=== PATIENT | female | born 1950 | race African-American/Black ===

== ENCOUNTER 2023-01-25 08:42 | Outpatient (OUT) | payer MEDICARE, MEDICAID, SELFPAY ==
--- NOTE | 2023-01-25 09:30 | FL_ITS ---
[address] [address] Patient Name: JEANMARIE ONEILL MRN: [id number] date: 1950 Sex: F Assigned Patient Location: [place] Current Patient Location: [place] Accession/Order Number: [id number] Exam Date: 01/25/2023 09:05 Report Date: 01/25/2023 10:02 At the request of: NON-STAFF PHYSICIAN Procedure: FL modified barium swallow EXAMINATION: FL modified barium swallow HISTORY: Dysphagia COMPARISON: No relevant comparison available. TECHNIQUE: A swallowing evaluation was performed with fluoroscopy in the usual manner. Standard level fluoroscopic mode of operation utilized. The procedure was recorded. Speech pathology was present FINDINGS: ORAL PHASE: Normal deglutition. PHARYNGEAL PHASE: Normal swallowing. ASPIRATION: None. STRUCTURE: Normal. No visible obstruction, stricture, or dilatation. OTHER: Negative. FL/FL modified barium swallow IMPRESSION: Normal examination. Electronically authenticated by: FRANKO OSWALD Date: 01/25/2023 10:02
== END 2023-01-25 08:43 | disposition home or self-care (01) ==
LOC: FL 08:48
DX: R13.10 Dysphagia, unspecified (principal)
CPT/HCPCS: 74230; 92611

== ENCOUNTER 2023-02-09 00:24 | Outpatient (REF) | payer MEDICARE, MEDICAID, SELFPAY ==
[2023-02-09 09:40] LABS: Basophils Percent Auto 0.4 % (0.2-2.0); Eosinophils Absolute Auto 0.6 10^3/uL (0.0-0.7); Eosinophils Percent Auto 7.4 % (0.9-7.0); Hematocrit 37.1 % (36.0-48.0); Hemoglobin 11.6 g/dL (12.0-16.0); Immature Granulocytes Abs Auto 0.01 10^3/uL (0.00-0.03); Immature Granulocytes Pct Auto 0.1 % (0.0-0.5); Lymphocytes Absolute Auto 2.8 10^3/uL (1.2-3.8); Lymphocytes Percent Auto 32.5 % (20.5-60.0); Mean Corpuscular HGB Conc 31.3 g/dL (29.9-35.2); Mean Corpuscular Hemoglobin 29.1 pg (26.7-34.0); Mean Platelet Volume 9.9 fL (9.5-13.5); Monocytes Absolute Auto 0.5 10^3/uL (0.3-0.8); Monocytes Percent Auto 5.5 % (1.7-12.0); Neutrophils Absolute Auto 4.6 10^3/uL (1.4-6.5); Neutrophils Percent Auto 54.1 % (43.0-75.0); Platelet Count 227 10^3/uL (150-450); Red Blood Count 3.99 10^6/uL (4.20-5.40); Red Cell Distribution Width 14.6 % (11.0-15.0); White Blood Count 8.5 10^3/uL (4.0-11.0)
[2023-02-09 10:16] LABS: Alanine Aminotransferase 16 U/L (14-59); Albumin Globulin Ratio 0.8; Albumin Level 3.6 g/dL (3.4-5.0); Alkaline Phosphatase 101 U/L (46-116); Anion Gap 12.5; Aspartate Amino Transferase 16 U/L (15-37); BUN Creatinine Ratio 33.7; Bilirubin Total 0.4 mg/dL (0.2-1.0); Calcium 9.2 mg/dL (8.5-10.1); Chloride 105 mmol/L (98-107); Chol HDL Ratio 2.8; Cholesterol 144 mg/dL (<=200); Estimated GFR (African America >60 (>=60); Estimated GFR (Non-African Ame 58 (>=60); Globulin 4.6 g/dL; Glucose 81 mg/dL (74-106); HDL Cholesterol 51 mg/dL (40-60); LDL Cholesterol Calculated 79.4 mg/dL; Potassium 4.5 mmol/L (3.5-5.1); Sodium 141 mmol/L (136-145); Thyroid Stimulating Hormone 1.349 uIU/mL (0.358-3.740); Total Protein 8.2 g/dL (6.4-8.2); Triglycerides 68 mg/dL (<=150); VLDL CHOLESTEROL 13.6 mg/dL
[2023-02-09 11:17] LABS: Estimated Average Glucose 131 mg/dL; Glycohemoglobin A1C 6.2 % (4.5-6.2)
== END 2023-02-09 00:25 | disposition home or self-care (01) ==
LOC: LAB 00:24
PROVIDERS: Visit Provider Nurse Practitioner Family
DX: E03.9 Hypothyroidism, unspecified (principal); E11.9 Type 2 diabetes mellitus without complications; I10 Essential (primary) hypertension
CPT/HCPCS: 36415; 80053; 80061; 83036; 84436; 84443; 85025

== ENCOUNTER 2023-06-06 02:14 | Outpatient (REF) | payer MEDICARE, MEDICAID, SELFPAY ==
--- OUTSIDE RECORDS SUMMARY | 2023-06-06 02:18 | XMS_ITS | CCD ---
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 Role Phone Cayla Gamez Unavailable [facility] Primary Care Unavaila Martin Gu Attending Unavailable Elizabet Wilson Admitting Unavailable [facility] Care Unavaila Isael Villatoro Attending Unavailable Isael Castro Admitting Unavailable Austin Head Unavailable [facility] Primary Care Unavaila Evert Hamlin Attending Unavailable Evert Grant Admitting Unavailable [facility] Primary Care Unavaila Fuad Jennings Attending Unavailable Fuad Pillai Admitting Unavailable Gerald Fuentes Primary Care Unavailable Amando Soto Attending Unavailable Amando Soto Admitting Unavailable Medications Current Medications Medication Drug Class(es) Dates Sig (Normalized) Sig (Original) acetaminophen 500 mg oral capsule (4 sources) take 1 capsule by mouth every six hours Acetaminophen 500 MG 1 capsule as needed Orally every 6 hrs Active [id number] 200 actuat albuterol 0.09 mg/actuat metered dose inhaler (4 sources) beta2-Adrenergic Agonist take 2 puff(s) by inhalation every four hours as needed Ventolin HFA 108 (90 Base) MCG/ACT 2 puffs as needed Inhalation every 4 hrs Active aspirin 81 mg oral tablet (4 sources) Platelet Aggregation Inhibitor, Nonsteroidal Anti-inflammatory Drug take 1 tablet by mouth once daily Aspirin 81 MG 1 tablet Orally Once a day Active take 1 tablet by mouth every twe nty-four hours benztropine mesylate 0.5 mg oral tablet (4 sources) Anticholinergic, Antihistamine take 1 tablet by mouth every twenty-four hours Benztropine Mesylate 0.5 MG 1 tablet at bedtime Orally Once a day Active Calcium (4 sources) Phosphate Binder, Calcium Calcium Active carvedilol 3.125 mg oral tablet (4 sources) alpha-Adrenergic Tacos, beta-Adrenergic Tacos take 1 tablet by mouth every twelve hours Carvedilol 3.125 MG 1 tablet with food Orally Twice a day for 30 day(s) Active furosemide 20 mg oral tablet (4 sources) Loop Diuretic take 1 tablet by mouth every twenty-four hours Furosemide 20 MG 1 tablet Orally Once a day for 30 day(s) Active Haloperidol (4 sources) Typical Antipsychotic Haldol 5 MG 5 mg Injection three times a day for 30 day(s) Active 3 ml insulin glargine 100 unt/ml pen injector (4 sources) Insulin Analog inject 10 [IU] by subcutaneous injection once daily at bedtime Lantus SoloStar 100 UNIT/ML 10 units Subcutaneous qhs Active levothyroxine sodium 0.125 mg oral tablet (4 sources) l-Thyroxine Synthroid 125 MC G 1 tablet every morning on an empty stomach Orally Once a day for 30 day(s) Active loperamide hydrochloride 2 mg oral tablet (4 sources) Opioid Agonist Loperamide A-D 2 MG 1 tablet up to 8 tablets per 24 hours Orally 8 time(s) a day Active metFORMIN hydrochloride 500 mg oral tablet (4 sources) Biguanide take 1 tablet by mouth twice daily Metformin 500 mg 1 tab Oral BID w/ Food Active omeprazole 20 mg delayed release oral capsule (4 sources) Proton Pump Inhibitor take 1 capsule by mouth every twenty-four hours Omeprazole 20 MG 1 capsule Orally Once a day for 30 day(s) Active spironolactone 25 mg oral tablet (4 sources) Aldosterone Antagonist take 0.5 tablet by mouth once daily Spironolactone 25 MG 1/2 tablet Orally Once a day for 30 day(s) Active tiotropium 0.018 mg inhalation powder (4 sources) Anticholinergic take 1 capsule by inhalation once daily Spiriva HandiHaler 18 MCG 1 capsule Inhalation Once a day Active venlafaxine 100 mg oral tablet (4 sources) Serotonin and Norepinephrine Reuptake Inhibitor take 1 tablet by mouth every twenty-four hours Venlafaxine HCl 100 MG 1 tablet with food Orally Once a day for 30 day(s) Active Vitamin B-12 1000 MCG (1 source) take 1 tablet under the tongue once daily Vitamin B-12 1000 MCG 1 tablet under the tongue and allow to dissolve Sublingual Once a day for 30 day(s) Active vitamin b12 1 mg sublingual tablet (3 sources) Vitamin B12 take 1 tablet by mouth every twenty-four hours Vitamin D 1000 UNIT (4 sources) take 1 capsule by mouth once martine ly Vitamin D 1000 UNIT 1 capsule Orally Once a day for 30 day(s) Active Problems Active Problems Problem Classification Problem Date Documented Date Episodic/Chronic Chronic obstructive pulmonary disease and bronchiectasis (4 sources) Chronic obstructive lung disease; Translations: [Chronic obstructive pulmonary disease, unspecified] Chronic Diabetes mellitus with complications (1 source) Type 2 diabetes mellitus with hyperglycemia; Translations: [E11.65 - Type 2 diabetes mellitus with hyperglycemia] Onset: 09-01-2021 Chronic Diabetes mellitus without complication (1 source) Diabetes mellitus without complication; Translations: [E11.65 - Type 2 diabetes mellitus with hyperglycemia] Onset: 10-25-2021 Essential hypertension (1 source) Essential (primary) hypertension; Translations: [Essential (primary) hypertension] Onset: 02-14-2022 Chronic Nutritional deficiencies (2 sources) Vitamin D deficiency, unspecified; Translations: [Vitamin D deficiency, unspecified] Onset: 09-01-2021 Chronic Nutritional deficiencies (2 sources) Deficiency of other specified B group vitamins; Translations: [Deficiency of other specified B group vitamins] Onset: 09-01-2021 Episodic Other nervous system disorders (1 source) Encephalopathy, unspecified; Translations: [G93.40 - Encephalopathy, unspecified] Onset: 09-01-2021 Chronic Schizophrenia and other psychotic disorders (1 source) Paranoid schizophrenia; Translations: [F20.0 - Paranoid schizophrenia] Onset: 09-01-2021 Chronic Substance-related disorders (4 sources) Tobacco user; Translations: [Nicotine dependence, cigarettes, uncomplicated] Chronic Thyroid disorders (1 source) Hypothyroidism, unspecified; Translations: [Hypothyroidism, unspecified] Onset: 02-14-2022 Chronic Unclassified (1 source) R41.82 - Altered mental status, unspecified; Translations: [R41.82 - Altered mental status, unspecified] Onset: 09-01-2021 Unclassified (1 source) T14.8XXA - Other injury of unspecified body region, initial encounter; Translations: [T14.8XXA - Other injury of unspecified body region, initial encounter] Onset: 08-24-2021 Unclassified (1 source) K80.10 - Calculus of gallbladder with chronic cholecystitis without obstruction; Translations: [K80.10 - Calculus of gallbladder with chronic cholecystitis without obstruction] Onset: 08-23-2021 Past or Other Problems Problem Classification Problem Date Documented Date Episodic/Chronic Acute and unspecified renal failure (1 source) Acute kidney failure, unspecified; Translations: [N17.9 - Acute kidney failure, unspecified] Onset: 09-01-2021 Episodic Bacterial infection; unspecified site (1 source) Bacterial infection, unspecified; Translations: [A49.9 - Bacterial infection, unspecified] Onset: 09-01-2021 Episodic Fluid and electrolyte disorders (1 source) Hypokalemia; Translations: [E87.6 - Hypokalemia] Onset: 09-01-2021 Episodic Other nervous system disorders (1 source) Other acute postprocedural pain; Translations: [G89.18 - Other acute postprocedural pain] Onset: 08-23-2021 Episodic Residual codes; unclassified (1 source) Acquired absence of other specified parts of digestive tract; Translations: [Z90.49 - Acquired absence of other specified parts of digestive tract] Onset: 09-01-2021 Episodic Thyroid disorders (1 source) Disorder of thyroid, unspecified; Translations: [E07.9 - Disorder of thyroid, unspecified] Onset: 08-23-2021 Episodic Urinary tract infections (1 source) Urinary tract infection, site not specified; Translations: [N39.0 - Urinary tract infection, site not specified] Onset: 09-01-2021 Episodic Results Test Name Value Interpretation Reference Range Facility 1,25 Dihydroxy Vit D Calcitr olon 02-14-2022 1,25 Dihydroxy Vit D Calcitrol 19.4 pg/mL Low 24.8-81.5 [facility] Comment on above: Order Comment: Mamta hall for Exam Vitamin D deficiency Result Comment: Perf ormed at: [facility] - [facility] [address] [id number] Welt Beater: Favian Colby MD, Phone: [phone] PERFORMED BY: [place] [address] [place] [address] PATHOLOGIST ANIMAL SCIENTIST HEMANT CHÁVEZ M.D. Performed By: #### G LULS #### Point of Care testing , Complete Blood Count Auto Di ffon 02-14-2022 Basophils (Bld) [#/Vol] 0.0 10*3/uL Normal 0.0-0.2 [facility] Comment on above: Order Comment: Reaso n for Exam Essential hypertension Result Comment: PERF ORMED BY: [facility] [place] [place] [address] PATHOLOGIST ANIMAL SCIENTIST HEMANT CHÁVEZ M.D. Performed By: #### G LULS #### Point of Care testing , Basophils/100 WBC (Bld) 0.2 % Normal . [facility] Comment on above: Order Comment: Reaso n for Exam Essential hypertension Performed By: #### G LULS #### Point of Care testing , Eosinophils (Bld) [#/Vol] 0.6 10*3/uL High 0.0-0.45 [facility] Comment on above: Order Comment: Reaso n for Exam Essential hypertension Performed By: #### G LULS #### Point of Care testing , Eosinophils/100 WBC (Bld) 5.7 % Normal . [facility] Comment on above: Order Comment: Reaso n for Exam Essential hypertension Performed By: #### G LULS #### Point of Care testing , Erythrocyte distribution width (RBC) [Ratio] 14.7 % Normal 11.9-15.3 [facility] Comment on above: Order Comment: Reaso n for Exam Essential hypertension Performed By: #### G LULS #### Point of Care testing , Hematocrit (Bld) [Volume fraction] 38.2 % Normal 34.0-46.4 [facility] Comment on above: Order Comment: Reaso n for Exam Essential hypertension Performed By: #### G LULS #### Point of Care testing , Hemoglobin (Bld) [Mass/Vol] 12.4 g/dL Normal 11.8-15.4 [facility] Comment on above: Order Comment: Reaso n for Exam Essential hypertension Performed By: #### G LULS #### Point of Care testing , Lymphocytes (Bld) [#/Vol] 2.9 10*3/uL Normal 1.00-4.8 [facility] Comment on above: Order Comment: Reaso n for Exam Essential hypertension Performed By: #### G LULS #### Point of Care testing , Lymphocytes/100 WBC (Bld) 28.8 % Normal . [facility] Comment on above: Order Comment: Reaso n for Exam Essential hypertension Performed By: #### G LULS #### Point of Care testing , MCH (RBC) [Entitic mass] 28.0 pg Normal 24.7-34.3 [facility] Comment on above: Order Comment: Reaso n for Exam Essential hypertension Performed By: #### G LULS #### Point of Care testing , MCV (RBC) [Entitic vol] 86.6 fL Normal 80-100 [facility] Comment on above: Order Comment: Reaso n for Exam Essential hypertension Performed By: #### G LULS #### Point of Care testing , Mean Corpuscular HGB Conc 32.4 g/dL Normal 32.0-35.0 [facility] Comment on above: Order Comment: Reaso n for Exam Essential hypertension Performed By: #### G LULS #### Point of Care testing , Monocytes (Bld) [#/Vol] 0.5 10*3/uL Normal 0.0-0.8 [facility] Comment on above: Order Comment: Reaso n for Exam Essential hypertension Performed By: #### G LULS #### Point of Care testing , Monocytes/100 WBC (Bld) 5.1 % Normal . [facility] Comment on above: Order Comment: Reaso n for Exam Essential hypertension Performed By: #### G LULS #### Point of Care testing , Neutrophils (Bld) [#/Vol] 6.1 10*3/uL Normal 1.8-7.7 [facility] Comment on above: Order Comment: Reaso n for Exam Essential hypertension Performed By: #### G LULS #### Point of Care testing , Neutrophils/100 WBC (Bld) 60.2 % Normal . [facility] Comment on above: Order Comment: Reaso n for Exam Essential hypertension Performed By: #### G LULS #### Point of Care testing , Nucleated RBC/100 WBC (Bld) [Ratio] 0.1 % Normal 0-0.5 [facility] Comment on above: Order Comment: Reaso n for Exam Essential hypertension Performed By: #### G LULS #### Point of Care testing , Platelet mean volume (Bld) [Entitic vol] 7.8 fL Normal 6.3-10.7 [facility] Comment on above: Order Comment: Reaso n for Exam Essential hypertension Performed By: #### G LULS #### Point of Care testing , Platelets (Bld) [#/Vol] 330 10*3/uL Normal 150-450 [facility] Comment on above: Order Comment: Reaso n for Exam Essential hypertension Performed By: #### G LULS #### Point of Care testing , RBC (Bld) [#/Vol] 4.41 10*6/uL Normal 3.60-5.00 [facility] Comment on above: Order Comment: Reaso n for Exam Essential hypertension Performed By: #### G LULS #### Point of Care testing , WBC (Bld) [#/Vol] 10.1 10*3/uL Normal 4.5-11.0 [facility] Comment on above: Order Comment: Reaso n for Exam Essential hypertension Performed By: #### G LULS #### Point of Care testing , Comprehensive Metabolic Pane eric 02-14-2022 Albumin [Mass/Vol] 3.8 g/dL Normal 3.2-5.5 [facility] Comment on above: Order Comment: PT FA STED 12 HRS Reason for Exam Essential hypertension Reason for Exam Vitamin B12 deficiency Reason for Exam Hypothyroidism, unspecified type Performed By: #### G LULS #### Point of Care testing , Albumin/Globulin [Mass ratio] 1.0 {ratio} Normal [facility] Comment on above: Order Comment: PT FA STED 12 HRS Reason for Exam Essential hypertension Reason for Exam Vitamin B12 deficiency Reason for Exam Hypothyroidism, unspecified type Performed By: #### G LULS #### Point of Care testing , ALP [Catalytic activity/Vol] 109 U/L High 32-92 [facility] Comment on above: Order Comment: PT FA STED 12 HRS Reason for Exam Essential hypertension Reason for Exam Vitamin B12 deficiency Reason for Exam Hypothyroidism, unspecified type Performed By: #### G LULS #### Point of Care testing , ALT [Catalytic activity/Vol] 14 U/L Normal 10-60 [facility] Comment on above: Order Comment: PT FA STED 12 HRS Reason for Exam Essential hypertension Reason for Exam Vitamin B12 deficiency Reason for Exam Hypothyroidism, unspecified type Performed By: #### G LULS #### Point of Care testing , Anion gap [Moles/Vol] 12.1 mmol/L Normal 6.0-15.0 [facility] Comment on above: Order Comment: PT FA STED 12 HRS Reason for Exam Essential hypertension Reason for Exam Vitamin B12 deficiency Reason for Exam Hypothyroidism, unspecified type Performed By: #### G LULS #### Point of Care testing , AST [Catalytic activity/Vol] 15 U/L Normal 10-42 [facility] Comment on above: Order Comment: PT FA STED 12 HRS Reason for Exam Essential hypertension Reason for Exam Vitamin B12 deficiency Reason for Exam Hypothyroidism, unspecified type Performed By: #### G LULS #### Point of Care testing , Bilirubin [Mass/Vol] 0.7 mg/dL Normal 0.3-1.2 [facility] Comment on above: Order Comment: PT FA STED 12 HRS Reason for Exam Essential hypertension Reason for Exam Vitamin B12 deficiency Reason for Exam Hypothyroidism, unspecified type Performed By: #### G LULS #### Point of Care testing , Calcium [Mass/Vol] 9.3 mg/dL Normal 8.2-10.2 [facility] Comment on above: Order Comment: PT FA STED 12 HRS Reason for Exam Essential hypertension Reason for Exam Vitamin B12 deficiency Reason for Exam Hypothyroidism, unspecified type Performed By: #### G LULS #### Point of Care testing , Chloride [Moles/Vol] 103 mmol/L Normal 95-114 [facility] Comment on above: Order Comment: PT FA STED 12 HRS Reason for Exam Essential hypertension Reason for Exam Vitamin B12 deficiency Reason for Exam Hypothyroidism, unspecified type Performed By: #### G LULS #### Point of Care testing , CO2 [Moles/Vol] 28.0 mmol/L Normal 22.0-30.0 [facility] Comment on above: Order Comment: PT FA STED 12 HRS Reason for Exam Essential hypertension Reason for Exam Vitamin B12 deficiency Reason for Exam Hypothyroidism, unspecified type Performed By: #### G LULS #### Point of Care testing , Creatinine [Mass/Vol] 0.94 mg/dL Normal 0.44-1.03 [facility] Comment on above: Order Comment: PT FA STED 12 HRS Reason for Exam Essential hypertension Reason for Exam Vitamin B12 deficiency Reason for Exam Hypothyroidism, unspecified type Performed By: #### G LULS #### Point of Care testing , Estimated GFR ( Roseline > 60 [facility] Comment on above: Order Comment: PT FA STED 12 HRS Reason for Exam Essential hypertension Reason for Exam Vitamin B12 deficiency Reason for Exam Hypothyroidism, unspecified type Result Comment: GFR estimated reference range: According to KDOQI guidelines, <60 ml/min/1.73m2 is sufficient to diagnose a patient with chronic kidney disease. Performed By: #### G LULS #### Point of Care testing , Estimated GFR (Non- Am 59 [facility] Comment on above: Order Comment: PT FA STED 12 HRS Reason for Exam Essential hypertension Reason for Exam Vitamin B12 deficiency Reason for Exam Hypothyroidism, unspecified type Performed By: #### G LULS #### Point of Care testing , Globulin (S) [Mass/Vol] 3.7 g/dL [facility] Comment on above: Order Comment: PT FA STED 12 HRS Reason for Exam Essential hypertension Reason for Exam Vitamin B12 deficiency Reason for Exam Hypothyroidism, unspecified type Performed By: #### G LULS #### Point of Care testing , Glucose [Mass/Vol] 103 mg/dL High 70-100 [facility] Comment on above: Order Comment: PT FA STED 12 HRS Reason for Exam Essential hypertension Reason for Exam Vitamin B12 deficiency Reason for Exam Hypothyroidism, unspecified type Result Comment: [place] om Glucose Reference Range is dependent on time and content of last meal. Glucose of more than 200 mg/dL in a nonstressed, ambulatory subject supports the diagnosis of Diabetes Mellitus. ADA recommended reference range Performed By: #### G LULS #### Point of Care testing , Potassium [Moles/Vol] 4.1 mmol/L Normal 3.5-5.1 [facility] Comment on above: Order Comment: PT FA STED 12 HRS Reason for Exam Essential hypertension Reason for Exam Vitamin B12 deficiency Reason for Exam Hypothyroidism, unspecified type Performed By: #### G LULS #### Point of Care testing , Protein [Mass/Vol] 7.5 g/dL Normal 6.1-7.9 [facility] Comment on above: Order Comment: PT FA STED 12 HRS Reason for Exam Essential hypertension Reason for Exam Vitamin B12 deficiency Reason for Exam Hypothyroidism, unspecified type Performed By: #### G LULS #### Point of Care testing , Sodium [Moles/Vol] 139 mmol/L Normal 136-146 [facility] Comment on above: Order Comment: PT FA STED 12 HRS Reason for Exam Essential hypertension Reason for Exam Vitamin B12 deficiency Reason for Exam Hypothyroidism, unspecified type Performed By: #### G LULS #### Point of Care testing , Urea nitrogen [Mass/Vol] 19 mg/dL Normal 9-23 [facility] Comment on above: Order Comment: PT FA STED 12 HRS Reason for Exam Essential hypertension Reason for Exam Vitamin B12 deficiency Reason for Exam Hypothyroidism, unspecified type Performed By: #### G LULS #### Point of Care testing , Lipid Panelon 02-14-2022 Cholesterol [Mass/Vol] 134 mg/dL Low 140-200 [facility] Comment on above: Order Comment: PT FA STED 12 HRS Reason for Exam Essential hypertension Reason for Exam Vitamin B12 deficiency Reason for Exam Hypothyroidism, unspecified type Result Comment: Chol less than 200 mg/dl low risk Chol 201-239 mg/dl borderline risk Chol 240 mg/dl and greater high risk Performed By: #### G LULS #### Point of Care testing , Cholesterol in HDL [Mass/Vol] 44 mg/dL Normal 35-85 [facility] Comment on above: Order Comment: PT FA STED 12 HRS Reason for Exam Essential hypertension Reason for Exam Vitamin B12 deficiency Reason for Exam Hypothyroidism, unspecified type Result Comment: HDL CHOL ATP-III CLASSIFICATION Cardiovascular Risk HDL > or equal to 60 mg/dL LOW HDL < 40 mg/dL HIGH Performed By: #### G LULS #### Point of Care testing , Cholesterol.total/Ch olesterol in HDL [Mass ratio] 3.0 {ratio} Normal <5.0 [facility] Comment on above: Order Comment: PT FA STED 12 HRS Reason for Exam Essential hypertension Reason for Exam Vitamin B12 deficiency Reason for Exam Hypothyroidism, unspecified type Performed By: #### G LULS #### Point of Care testing , LDL Cholesterol,Calculat ed 73 mg/dL Normal 0-100 [facility] Comment on above: Order Comment: PT FA STED 12 HRS Reason for Exam Essential hypertension Reason for Exam Vitamin B12 deficiency Reason for Exam Hypothyroidism, unspecified type Result Comment: LDL ATP III CLASSIFICATION LDL less than 100 mg/dL Optimal LDL 100-129 mg/dL Near or above optimal LDL 130-159 mg/dL Borderline high LDL 160-189 mg/dL High LDL greater than 189 mg/dL Very high Performed By: #### G LULS #### Point of Care testing , Triglyceride w/Reflex 85 mg/dL Normal 35-149 [facility] Comment on above: Order Comment: PT FA STED 12 HRS Reason for Exam Essential hypertension Reason for Exam Vitamin B12 deficiency Reason for Exam Hypothyroidism, unspecified type Result Comment: TRIG ATP III CLASSIFICATION TRIG less than 150 mg/dL Normal TRIG 150-199 mg/dL Borderline high TRIG 200-500 mg/dL High TRIG greater than 500 mg/dL Very high Standard traceable to the Center for Disease Conrtrol and Prevention (CDC) test method. Performed By: #### G LULS #### Point of Care testing , VLDL CHOLESTEROL 17 mg/dL Normal [facility] Comment on above: Order Comment: PT FA STED 12 HRS Reason for Exam Essential hypertension Reason for Exam Vitamin B12 deficiency Reason for Exam Hypothyroidism, unspecified type Performed By: #### G LULS #### Point of Care testing , Thyroid Stimulating Hormoneo n 02-14-2022 TSH Qn 1.04 m[IU]/L Normal 0.45-5.33 [facility] Comment on above: Order Comment: PT FA STED 12 HRS Reason for Exam Essential hypertension Reason for Exam Vitamin B12 deficiency Reason for Exam Hypothyroidism, unspecified type Result Comment: PERF ORMED BY: [address] [place] [address] PATHOLOGIST ANIMAL SCIENTIST HEMANT CHÁVEZ M.D. Performed By: #### G WILLEM #### Point of Care testing , Thyroxine (T4) Totalon 02-14 T4 [Mass/Vol] 13.17 ug/dL High 5.39-11.82 [facility] Comment on above: Order Comment: PT FA STED 12 HRS Reason for Exam Essential hypertension Reason for Exam Vitamin B12 deficiency Reason for Exam Hypothyroidism, unspecified type Performed By: #### G WILLEM #### Point of Care testing , Vitamin B12on 02-14-2022 Cobalamin (Vitamin B12) [Mass/Vol] 292 pg/mL Normal 180-914 [facility] Comment on above: Order Comment: PT FA STED 12 HRS Reason for Exam Essential hypertension Reason for Exam Vitamin B12 deficiency Reason for Exam Hypothyroidism, unspecified type Performed By: #### G WILLEM #### Point of Care testing , Basic Metabolic Panelon 05-3 Calcium [Mass/Vol] 8.2 mg/dL Normal 8.2-10.2 [facility] Comment on above: Performed By: #### C BC, BMP #### [facility] [address] Chloride [Moles/Vol] 103 mmol/L Normal 95-114 [facility] Comment on above: Performed By: #### C BC, BMP #### [facility] [address] [place] [address] [place] CO2 [Moles/Vol] 27.2 mmol/L Normal 22.0-30.0 [facility] Comment on above: Performed By: #### C BC, BMP #### [facility] [address] [place] [address] [place] Creatinine [Mass/Vol] 1.13 mg/dL High 0.44-1.03 [facility] Comment on above: Performed By: #### C BC, BMP #### [facility] [address] [place] [address] [place] Creatinine Clr Calc Pharmacy 59.74 Normal [facility] Comment on above: Result Comment: PERF ORMED BY: [place] [address] PATHOLOGIST ANIMAL SCIENTIST HEMANT CHÁVEZ M.D. Performed By: #### C BC, BMP #### [address] Estimated GFR ( Roseline 58 [facility] Comment on above: Result Comment: GFR estimated reference range: According to KDOQI guidelines, <60 ml/min/1.73m2 is sufficient to diagnose a patient with chronic kidney disease. Performed By: #### C BC, BMP #### [address] Estimated GFR (Non- Am 48 [facility] Comment on above: Performed By: #### C BC, BMP #### [address] Glucose [Mass/Vol] 116 mg/dL High 70-100 [facility] Comment on above: Result Comment: [place] Glucose Reference Range is dependent on time and content of last meal. Glucose of more than 200 mg/dL in a nonstressed, ambulatory subject supports the diagnosis of Diabetes Mellitus. ADA recommended reference range Performed By: #### C BC, BMP #### [address] Potassium [Moles/Vol] 3.2 mmol/L Low 3.5-5.1 [facility] Comment on above: Performed By: #### C BC, BMP #### [address] Sodium [Moles/Vol] 140 mmol/L Normal 136-146 [facility] Comment on above: Performed By: #### C BC, BMP #### [address] Urea nitrogen [Mass/Vol] 9 mg/dL Normal 9-23 [facility] Comment on above: Performed By: #### C BC, BMP #### [address] Complete Blood Count Auto Di ffon 09-06-2021 Basophils (Bld) [#/Vol] 0.0 10*3/uL Normal 0.0-0.2 [facility] Comment on above: Result Comment: PERF ORMED BY: [place] [address] PATHOLOGIST ANIMAL SCIENTIST HEMANT CHÁVEZ M.D. Performed By: #### C BC, BMP #### [address] Basophils/100 WBC (Bld) 0.1 % Normal . [facility] Comment on above: Performed By: #### C BC, BMP #### [address] Eosinophils (Bld) [#/Vol] 0.2 10*3/uL Normal 0.0-0.45 [facility] Comment on above: Performed By: #### C BC, BMP #### [address] Eosinophils/100 WBC (Bld) 2.3 % Normal . [facility] Comment on above: Performed By: #### C BC, BMP #### [address] Erythrocyte distribution width (RBC) [Ratio] 16.2 % High 11.9-15.3 [facility] Comment on above: Performed By: #### C BC, BMP #### [address] Hematocrit (Bld) [Volume fraction] 30.8 % Low 34.0-46.4 [facility] Comment on above: Performed By: #### C BC, BMP #### [address] Hemoglobin (Bld) [Mass/Vol] 9.8 g/dL Low 11.8-15.4 [facility] Comment on above: Performed By: #### C BC, BMP #### [place] [address] [place] Lymphocytes (Bld) [#/Vol] 1.8 10*3/uL Normal 1.00-4.8 [facility] Comment on above: Performed By: #### C BC, BMP #### [facility] [address] Lymphocytes/100 WBC (Bld) 18.5 % Normal . [facility] Comment on above: Performed By: #### C BC, BMP #### [facility] [address] MCH (RBC) [Entitic mass] 27.6 pg Normal 24.7-34.3 [facility] Comment on above: Performed By: #### C BC, BMP #### [facility] [address] MCV (RBC) [Entitic vol] 86.1 fL Normal 80-100 [facility] Comment on above: Performed By: #### C BC, BMP #### [facility] [address] Mean Corpuscular HGB Conc 32.0 g/dL Normal 32.0-35.0 [facility] Comment on above: Performed By: #### C BC, BMP #### [facility] [address] [place] [address] [place] Monocytes (Bld) [#/Vol] 0.7 10*3/uL Normal 0.0-0.8 [facility] Comment on above: Performed By: #### C BC, BMP #### [facility] [address] [place] [address] [place] Monocytes/100 WBC (Bld) 6.9 % Normal . [facility] Comment on above: Performed By: #### C BC, BMP #### [facility] [address] [place] [address] [place] Neutrophils (Bld) [#/Vol] 7.2 10*3/uL Normal 1.8-7.7 [facility] Comment on above: Performed By: #### C BC, BMP #### [facility] [address] Neutrophils/100 WBC (Bld) 72.2 % Normal . [facility] Comment on above: Performed By: #### C BC, BMP #### [facility] [address] Nucleated RBC/100 WBC (Bld) [Ratio] 0.0 % Normal 0-0.5 [facility] Comment on above: Performed By: #### C BC, BMP #### [facility] [address] Platelet mean volume (Bld) [Entitic vol] 8.3 fL Normal 6.3-10.7 [facility] Comment on above: Performed By: #### C BC, BMP #### [facility] [address] [place] [address] [place] Platelets (Bld) [#/Vol] 258 10*3/uL Normal 150-450 [facility] Comment on above: Performed By: #### C BC, BMP #### [address] RBC (Bld) [#/Vol] 3.57 10*6/uL Low 3.60-5.00 [facility] Comment on above: Performed By: #### C BC, BMP #### [address] WBC (Bld) [#/Vol] 9.9 10*3/uL Normal 4.5-11.0 [facility] Comment on above: Performed By: #### C BC, BMP #### [address] Glucose Poct Glucometerson 0 09-06-2021 Commemt1 Glu2: Cleaned Meter Normal [facility] Comment on above: Result Comment: PERF ORMED BY: [place] [address] PATHOLOGIST ANIMAL SCIENTIST HEMANT CHÁVEZ M.D. Performed By: #### C BC, BMP #### [address] Glucose [Mass/Vol] 126 mg/dL Normal [facility] Comment on above: Result Comment: [place] om Glucose Reference Range is dependent on time and content of last meal. Glucose of more than 200 mg/dL in a nonstressed, ambulatory subject supports the diagnosis of Diabetes Mellitus. Performed By: #### C BC, BMP #### [address] Commemt1 Glu2: Cleaned Meter Normal [facility] Comment on above: Result Comment: PERF ORMED BY: [place] [address] PATHOLOGIST ANIMAL SCIENTIST HEMANT CHÁVEZ M.D. Performed By: #### G LULS #### Point of Care testing , Glucose [Mass/Vol] 175 mg/dL Normal [facility] Comment on above: Result Comment: [place] om Glucose Reference Range is dependent on time and content of last meal. Glucose of more than 200 mg/dL in a nonstressed, ambulatory subject supports the diagnosis of Diabetes Mellitus. Performed By: #### G LULS #### Point of Care testing , Glucose [Mass/Vol] 103 mg/dL Normal [facility] Comment on above: Result Comment: [place] om Glucose Reference Range is dependent on time and content of last meal. Glucose of more than 200 mg/dL in a nonstressed, ambulatory subject supports the diagnosis of Diabetes Mellitus. PERFORMED BY: [place] [address] PATHOLOGIST ANIMAL SCIENTIST HEMANT CHÁVEZ M.D. Performed By: #### C BC, LACTIC, HS TROP, HEPATIC, BMP, LIPASE, BHOB, T4F, TSH3 #### [address] Glucose Poct Glucometerson 0 09-05-2021 Glucose [Mass/Vol] 150 mg/dL Normal [facility] Comment on above: Result Comment: [place] om Glucose Reference Range is dependent on time and content of last meal. Glucose of more than 200 mg/dL in a nonstressed, ambulatory subject supports the diagnosis of Diabetes Mellitus. PERFORMED BY: [place] [address] PATHOLOGIST ANIMAL SCIENTIST HEMANT CHÁVEZ M.D. Performed By: #### G LULS #### Point of Care testing , Glucose [Mass/Vol] 154 mg/dL Normal [facility] Comment on above: Result Comment: [facility] Glucose Reference Range is dependent on time and content of last meal. Glucose of more than 200 mg/dL in a nonstressed, ambulatory subject supports the diagnosis of Diabetes Mellitus. PERFORMED BY: [place] [address] PATHOLOGIST ANIMAL SCIENTIST HEMANT CHÁVEZ M.D. Performed By: #### G LULS #### Point of Care testing , Glucose [Mass/Vol] 145 mg/dL Normal [facility] Comment on above: Result Comment: [facility] Glucose Reference Range is dependent on time and content of last meal. Glucose of more than 200 mg/dL in a nonstressed, ambulatory subject supports the diagnosis of Diabetes Mellitus. PERFORMED BY: [place] [address] PATHOLOGIST ANIMAL SCIENTIST HEMANT CHÁVEZ M.D. Performed By: #### G LULS #### Point of Care testing , Glucose [Mass/Vol] 167 mg/dL Normal [facility] Comment on above: Result Comment: [facility] Glucose Reference Range is dependent on time and content of last meal. Glucose of more than 200 mg/dL in a nonstressed, ambulatory subject supports the diagnosis of Diabetes Mellitus. PERFORMED BY: [place] [address] PATHOLOGIST ANIMAL SCIENTIST HEMANT CHÁVEZ M.D. Performed By: #### C BC, LACTIC, HS TROP, HEPATIC, BMP, LIPASE, BHOB, T4F, TSH3 #### [facility] [address] Basic Metabolic Panelon 05-2 Calcium [Mass/Vol] 8.2 mg/dL Normal 8.2-10.2 [facility] Comment on above: Performed By: #### C BC, BMP #### [place] [id number] [place] Chloride [Moles/Vol] 110 mmol/L Normal 95-114 [facility] Comment on above: Performed By: #### C BC, BMP #### [facility] [address] CO2 [Moles/Vol] 25.2 mmol/L Normal 22.0-30.0 [facility] Comment on above: Performed By: #### C BC, BMP #### [facility] [address] Creatinine [Mass/Vol] 1.23 mg/dL High 0.44-1.03 [facility] Comment on above: Performed By: #### C BC, BMP #### [facility] [address] [place] [address] [place] Creatinine Clr Calc Pharmacy 54.[address] [facility] Comment on above: Result Comment: PERF ORMED BY: [place] [address] PATHOLOGIST ANIMAL SCIENTIST HEMANT CHÁVEZ M.D. Performed By: #### C BC, BMP #### [address] Estimated GFR ( Roseline 52 [facility] Comment on above: Result Comment: GFR estimated reference range: According to KDOQI guidelines, <60 ml/min/1.73m2 is sufficient to diagnose a patient with chronic kidney disease. Performed By: #### C BC, BMP #### [place] [address] [place] Estimated GFR (Non- Am 43 [facility] Comment on above: Performed By: #### C BC, BMP #### [facility] [address] [place] [address] [place] Glucose [Mass/Vol] 136 mg/dL High 70-100 [facility] Comment on above: Result Comment: [place] Glucose Reference Range is dependent on time and content of last meal. Glucose of more than 200 mg/dL in a nonstressed, ambulatory subject supports the diagnosis of Diabetes Mellitus. ADA recommended reference range Performed By: #### C BC, BMP #### [facility] [address] [place] [address] [place] Potassium [Moles/Vol] 3.3 mmol/L Low 3.5-5.1 [facility] Comment on above: Performed By: #### C BC, BMP #### [address] Sodium [Moles/Vol] 143 mmol/L Normal 136-146 [facility] Comment on above: Performed By: #### C BC, BMP #### [address] Urea nitrogen [Mass/Vol] 17 mg/dL Normal 9-23 [facility] Comment on above: Performed By: #### C BC, BMP #### [address] Complete Blood Count Auto Di ffon 09-04-2021 Basophils (Bld) [#/Vol] 0.0 10*3/uL Normal 0.0-0.2 [facility] Comment on above: Result Comment: PERF ORMED BY: [place] [address] PATHOLOGIST ANIMAL SCIENTIST HEMANT CHÁVEZ M.D. Performed By: #### C BC, BMP #### [address] Basophils/100 WBC (Bld) 0.1 % Normal . [facility] Comment on above: Performed By: #### C BC, BMP #### [address] Eosinophils (Bld) [#/Vol] 0.3 10*3/uL Normal 0.0-0.45 [facility] Comment on above: Performed By: #### C BC, BMP #### [address] Eosinophils/100 WBC (Bld) 3.3 % Normal . [facility] Comment on above: Performed By: #### C BC, BMP #### [address] Erythrocyte distribution width (RBC) [Ratio] 16.4 % High 11.9-15.3 [facility] Comment on above: Performed By: #### C BC, BMP #### [facility] [address] Hematocrit (Bld) [Volume fraction] 30.1 % Low 34.0-46.4 [facility] Comment on above: Performed By: #### C BC, BMP #### [facility] [address] Hemoglobin (Bld) [Mass/Vol] 9.5 g/dL Low 11.8-15.4 [facility] Comment on above: Performed By: #### C BC, BMP #### [facility] [address] Lymphocytes (Bld) [#/Vol] 1.1 10*3/uL Normal 1.00-4.8 [facility] Comment on above: Performed By: #### C BC, BMP #### [address] Lymphocytes/100 WBC (Bld) 13.8 % Normal . [facility] Comment on above: Performed By: #### C BC, BMP #### [address] MCH (RBC) [Entitic mass] 27.7 pg Normal 24.7-34.3 [facility] Comment on above: Performed By: #### C BC, BMP #### [address] MCV (RBC) [Entitic vol] 87.3 fL Normal 80-100 [facility] Comment on above: Performed By: #### C BC, BMP #### [facility] [address] Mean Corpuscular HGB Conc 31.7 g/dL Low 32.0-35.0 [facility] Comment on above: Performed By: #### C BC, BMP #### [address] Monocytes (Bld) [#/Vol] 0.6 10*3/uL Normal 0.0-0.8 [facility] Comment on above: Performed By: #### C BC, BMP #### [facility] [address] [place] [id number] [place] Monocytes/100 WBC (Bld) 7.8 % Normal . [facility] Comment on above: Performed By: #### C BC, BMP #### [facility] [address] [place] [address] [place] Neutrophils (Bld) [#/Vol] 6.0 10*3/uL Normal 1.8-7.7 [facility] Comment on above: Performed By: #### C BC, BMP #### [facility] [address] [place] [id number] [place] Neutrophils/100 WBC (Bld) 75.0 % Normal . [facility] Comment on above: Performed By: #### C BC, BMP #### [facility] [address] [place] [id number] [place] Nucleated RBC/100 WBC (Bld) [Ratio] 0.1 % Normal 0-0.5 [facility] Comment on above: Performed By: #### C BC, BMP #### [facility] [address] [place] [id number] [place] Platelet mean volume (Bld) [Entitic vol] 8.0 fL Normal 6.3-10.7 [facility] Comment on above: Performed By: #### C BC, BMP #### [facility] [address] [place] [id number] [place] Platelets (Bld) [#/Vol] 236 10*3/uL Normal 150-450 [facility] Comment on above: Performed By: #### C BC, BMP #### [facility] [address] [place] [address] [place] RBC (Bld) [#/Vol] 3.45 10*6/uL Low 3.60-5.00 [facility] Comment on above: Performed By: #### C BC, BMP #### [facility] [address] [place] [id number] [place] WBC (Bld) [#/Vol] 8.0 10*3/uL Normal 4.5-11.0 [facility] Comment on above: Performed By: #### C BC, BMP #### [facility] [address] Glucose Poct Glucometerson 0 09-04-2021 Glucose [Mass/Vol] 131 mg/dL Normal [facility] Comment on above: Result Comment: [place] om Glucose Reference Range is dependent on time and content of last meal. Glucose of more than 200 mg/dL in a nonstressed, ambulatory subject supports the diagnosis of Diabetes Mellitus. PERFORMED BY: [place] [address] PATHOLOGIST ANIMAL SCIENTIST HEMANT CHÁVEZ M.D. Performed By: #### C BC, LACTIC, HS TROP, HEPATIC, BMP, LIPASE, BHOB, T4F, TSH3 #### [facility] [address] [place] [address] Commemt1 Glu2: Cleaned Meter [facility] Comment on above: Result Comment: PERF ORMED BY: [place] [address] PATHOLOGIST ANIMAL SCIENTIST HEMANT CHÁVEZ M.D. Performed By: #### G LULS #### Point of Care testing , Glucose [Mass/Vol] 170 mg/dL Normal [facility] Comment on above: Result Comment: [place] om Glucose Reference Range is dependent on time and content of last meal. Glucose of more than 200 mg/dL in a nonstressed, ambulatory subject supports the diagnosis of Diabetes Mellitus. Performed By: #### G LULS #### Point of Care testing , Commemt1 Glu2: Cleaned Meter [facility] Comment on above: Result Comment: PERF ORMED BY: [place] [address] PATHOLOGIST ANIMAL SCIENTIST HEMANT CHÁVEZ M.D. Performed By: #### G LULS #### Point of Care testing , Glucose [Mass/Vol] 141 mg/dL Normal [facility] Comment on above: Result Comment: [place] om Glucose Reference Range is dependent on time and content of last meal. Glucose of more than 200 mg/dL in a nonstressed, ambulatory subject supports the diagnosis of Diabetes Mellitus. Performed By: #### G LULS #### Point of Care testing , Commemt1 Glu2: Cleaned Meter [facility] Comment on above: Result Comment: PERF ORMED BY: [facility] [address] [place] [address] PATHOLOGIST ANIMAL SCIENTIST HEMANT CHÁVEZ M.D. Performed By: #### G LULS #### Point of Care testing , Glucose [Mass/Vol] 114 mg/dL Normal [facility] Comment on above: Result Comment: [facility] Glucose Reference Range is dependent on time and content of last meal. Glucose of more than 200 mg/dL in a nonstressed, ambulatory subject supports the diagnosis of Diabetes Mellitus. Performed By: #### G LULS #### Point of Care testing , Basic Metabolic Panelon - Calcium [Mass/Vol] 8.4 mg/dL Normal 8.2-10.2 [facility] Comment on above: Performed By: #### G LULS #### Point of Care testing , Chloride [Moles/Vol] 111 mmol/L Normal 95-114 [facility] Comment on above: Performed By: #### G LULS #### Point of Care testing , CO2 [Moles/Vol] 26.2 mmol/L Normal 22.0-30.0 [facility] Comment on above: Performed By: #### G LULS #### Point of Care testing , Creatinine [Mass/Vol] 1.37 mg/dL High 0.44-1.03 [facility] Comment on above: Performed By: #### G LULS #### Point of Care testing , Creatinine Clr Calc Pharmacy 48.64 [facility] Comment on above: Result Comment: PERF ORMED BY: [facility] [address] [place] [id number] PATHOLOGIST ANIMAL SCIENTIST HEMANT CHÁVEZ M.D. Performed By: #### G LULS #### Point of Care testing , Estimated GFR ( Roseline [address] [facility] Comment on above: Result Comment: GFR estimated reference range: According to KDOQI guidelines, <60 ml/min/1.73m2 is sufficient to diagnose a patient with chronic kidney disease. Performed By: #### G LULS #### Point of Care testing , Estimated GFR (Non- Am 38 Normal [facility] Comment on above: Performed By: #### G LULS #### Point of Care testing , Glucose [Mass/Vol] 145 mg/dL High 70-100 [facility] Comment on above: Result Comment: [place] Glucose Reference Range is dependent on time and content of last meal. Glucose of more than 200 mg/dL in a nonstressed, ambulatory subject supports the diagnosis of Diabetes Mellitus. ADA recommended reference range Performed By: #### G LULS #### Point of Care testing , Potassium [Moles/Vol] 3.2 mmol/L Low 3.5-5.1 [facility] Comment on above: Performed By: #### G LULS #### Point of Care testing , Sodium [Moles/Vol] 146 mmol/L Normal 136-146 [facility] Comment on above: Performed By: #### G LULS #### Point of Care testing , Urea nitrogen [Mass/Vol] 23 mg/dL Normal 9-23 [facility] Comment on above: Performed By: #### G LULS #### Point of Care testing , Complete Blood Count Auto Di ffon 09-03-2021 Basophils (Bld) [#/Vol] 0.0 10*3/uL Normal 0.0-0.2 [facility] Comment on above: Result Comment: PERF ORMED BY: [facility] [address] [place] [address] PATHOLOGIST ANIMAL SCIENTIST HEMANT CHÁVEZ M.D. Performed By: #### C BC, LACTIC, HS TROP, HEPATIC, BMP, LIPASE, BHOB, T4F, TSH3 #### [facility] [address] [place] [address] [place] Basophils/100 WBC (Bld) 0.1 % Normal . [facility] Comment on above: Performed By: #### C BC, LACTIC, HS TROP, HEPATIC, BMP, LIPASE, BHOB, T4F, TSH3 #### [address] Eosinophils (Bld) [#/Vol] 0.3 10*3/uL Normal 0.0-0.45 [facility] Comment on above: Performed By: #### C BC, LACTIC, HS TROP, HEPATIC, BMP, LIPASE, BHOB, T4F, TSH3 #### [address] Eosinophils/100 WBC (Bld) 3.6 % Normal . [facility] Comment on above: Performed By: #### C BC, LACTIC, HS TROP, HEPATIC, BMP, LIPASE, BHOB, T4F, TSH3 #### [address] Erythrocyte distribution width (RBC) [Ratio] 16.2 % High 11.9-15.3 [facility] Comment on above: Performed By: #### C BC, LACTIC, HS TROP, HEPATIC, BMP, LIPASE, BHOB, T4F, TSH3 #### [address] Hematocrit (Bld) [Volume fraction] 31.9 % Low 34.0-46.4 [facility] Comment on above: Performed By: #### C BC, LACTIC, HS TROP, HEPATIC, BMP, LIPASE, BHOB, T4F, TSH3 #### [address] Hemoglobin (Bld) [Mass/Vol] 10.2 g/dL Low 11.8-15.4 [facility] Comment on above: Performed By: #### C BC, LACTIC, HS TROP, HEPATIC, BMP, LIPASE, BHOB, T4F, TSH3 #### [address] Lymphocytes (Bld) [#/Vol] 1.0 10*3/uL Normal 1.00-4.8 [facility] Comment on above: Performed By: #### C BC, LACTIC, HS TROP, HEPATIC, BMP, LIPASE, BHOB, T4F, TSH3 #### [address] Lymphocytes/100 WBC (Bld) 10.4 % Normal . [facility] Comment on above: Performed By: #### C BC, LACTIC, HS TROP, HEPATIC, BMP, LIPASE, BHOB, T4F, TSH3 #### [address] MCH (RBC) [Entitic mass] 28.0 pg Normal 24.7-34.3 [facility] Comment on above: Performed By: #### C BC, LACTIC, HS TROP, HEPATIC, BMP, LIPASE, BHOB, T4F, TSH3 #### [address] MCV (RBC) [Entitic vol] 87.6 fL Normal 80-100 [facility] Comment on above: Performed By: #### C BC, LACTIC, HS TROP, HEPATIC, BMP, LIPASE, BHOB, T4F, TSH3 #### [address] Mean Corpuscular HGB Conc 31.9 g/dL Low 32.0-35.0 [facility] Comment on above: Performed By: #### C BC, LACTIC, HS TROP, HEPATIC, BMP, LIPASE, BHOB, T4F, TSH3 #### [address] Monocytes (Bld) [#/Vol] 0.7 10*3/uL Normal 0.0-0.8 [facility] Comment on above: Performed By: #### C BC, LACTIC, HS TROP, HEPATIC, BMP, LIPASE, BHOB, T4F, TSH3 #### [address] Monocytes/100 WBC (Bld) 7.5 % Normal . [facility] Comment on above: Performed By: #### C BC, LACTIC, HS TROP, HEPATIC, BMP, LIPASE, BHOB, T4F, TSH3 #### [address] Neutrophils (Bld) [#/Vol] 7.2 10*3/uL Normal 1.8-7.7 [facility] Comment on above: Performed By: #### C BC, LACTIC, HS TROP, HEPATIC, BMP, LIPASE, BHOB, T4F, TSH3 #### [facility] [address] Neutrophils/100 WBC (Bld) 78.4 % Normal . [facility] Comment on above: Performed By: #### C BC, LACTIC, HS TROP, HEPATIC, BMP, LIPASE, BHOB, T4F, TSH3 #### [facility] [address] Nucleated RBC/100 WBC (Bld) [Ratio] 0.0 % Normal 0-0.5 [facility] Comment on above: Performed By: #### C BC, LACTIC, HS TROP, HEPATIC, BMP, LIPASE, BHOB, T4F, TSH3 #### [facility] [address] Platelet mean volume (Bld) [Entitic vol] 8.2 fL Normal 6.3-10.7 [facility] Comment on above: Performed By: #### C BC, LACTIC, HS TROP, HEPATIC, BMP, LIPASE, BHOB, T4F, TSH3 #### [facility] [address] Platelets (Bld) [#/Vol] 273 10*3/uL Normal 150-450 [facility] Comment on above: Performed By: #### C BC, LACTIC, HS TROP, HEPATIC, BMP, LIPASE, BHOB, T4F, TSH3 #### [facility] [address] [place] [address] [place] RBC (Bld) [#/Vol] 3.64 10*6/uL Normal 3.60-5.00 [facility] Comment on above: Performed By: #### C BC, LACTIC, HS TROP, HEPATIC, BMP, LIPASE, BHOB, T4F, TSH3 #### [facility] [address] [place] [address] [place] WBC (Bld) [#/Vol] 9.1 10*3/uL Normal 4.5-11.0 [facility] Comment on above: Performed By: #### C BC, LACTIC, HS TROP, HEPATIC, BMP, LIPASE, BHOB, T4F, TSH3 #### [address] Glucose Poct Glucometerson 0 09-03-2021 Commemt1 Glu2: Cleaned Meter [facility] Comment on above: Result Comment: PERF ORMED BY: [facility] [address] [place] [address] PATHOLOGIST ANIMAL SCIENTIST HEMANT CHÁVEZ M.D. Performed By: #### G LULS #### Point of Care testing , Glucose [Mass/Vol] 152 mg/dL Normal [facility] Comment on above: Result Comment: [place] om Glucose Reference Range is dependent on time and content of last meal. Glucose of more than 200 mg/dL in a nonstressed, ambulatory subject supports the diagnosis of Diabetes Mellitus. Performed By: #### G LULS #### Point of Care testing , Commemt1 Glu2: Cleaned Meter [facility] Comment on above: Result Comment: PERF ORMED BY: [place] [address] PATHOLOGIST ANIMAL SCIENTIST HEMANT CHÁVEZ M.D. Performed By: #### G LULS #### Point of Care testing , Glucose [Mass/Vol] 154 mg/dL Normal [facility] Comment on above: Result Comment: [place] om Glucose Reference Range is dependent on time and content of last meal. Glucose of more than 200 mg/dL in a nonstressed, ambulatory subject supports the diagnosis of Diabetes Mellitus. Performed By: #### G LULS #### Point of Care testing , Commemt1 Glu2: Cleaned Meter [facility] Comment on above: Result Comment: PERF ORMED BY: [place] [address] PATHOLOGIST ANIMAL SCIENTIST HEMANT CHÁVEZ M.D. Performed By: #### G LULS #### Point of Care testing , Glucose [Mass/Vol] 128 mg/dL Normal [facility] Comment on above: Result Comment: [place] om Glucose Reference Range is dependent on time and content of last meal. Glucose of more than 200 mg/dL in a nonstressed, ambulatory subject supports the diagnosis of Diabetes Mellitus. Performed By: #### G LULS #### Point of Care testing , Glucose [Mass/Vol] 141 mg/dL Normal [facility] Comment on above: Result Comment: [place] om Glucose Reference Range is dependent on time and content of last meal. Glucose of more than 200 mg/dL in a nonstressed, ambulatory subject supports the diagnosis of Diabetes Mellitus. PERFORMED BY: [facility] [address] [address] PATHOLOGIST ANIMAL SCIENTIST HEMANT CHÁVEZ M.D. Performed By: #### G LULS #### Point of Care testing , A1C with Estimated Average [facility] 09-02-2021 Glucose [Mass/Vol] 126 mg/dL Normal [facility] Comment on above: Result Comment: PERF ORMED BY: [facility] [address] [place] [address] PATHOLOGIST ANIMAL SCIENTIST HEMANT CHÁVEZ M.D. Performed By: #### G LULS #### Point of Care testing , HbA1c (Bld) [Mass fraction] 6.0 % High 4.3-5.6 [facility] Comment on above: Result Comment: Incr eased risk for diabetes: 5.7 - 6.4 diabetes: >6.4 glycemic control for adults with diabetes: <7.0 Performed By: #### G LULS #### Point of Care testing , Basic Metabolic Panelon 05- Calcium [Mass/Vol] 8.8 mg/dL Normal 8.2-10.2 [facility] Comment on above: Performed By: #### G LULS #### Point of Care testing , Chloride [Moles/Vol] 113 mmol/L Normal 95-114 [facility] Comment on above: Performed By: #### G LULS #### Point of Care testing , CO2 [Moles/Vol] 20.6 mmol/L Low 22.0-30.0 [facility] Comment on above: Performed By: #### G STEVIELS #### Point of Care testing , Creatinine [Mass/Vol] 1.26 mg/dL High 0.44-1.03 [facility] Comment on above: Performed By: #### G STEVIELS #### Point of Care testing , Creatinine Clr Calc Pharmacy 51.25 [facility] Comment on above: Performed By: #### G STEVIELS #### Point of Care testing , Estimated GFR ( Roseline 51 [facility] Comment on above: Result Comment: GFR estimated reference range: According to KDOQI guidelines, <60 ml/min/1.73m2 is sufficient to diagnose a patient with chronic kidney disease. Performed By: #### G STEVIELS #### Point of Care testing , Estimated GFR (Non- Am 42 [facility] Comment on above: Performed By: #### G STEVIELS #### Point of Care testing , Glucose [Mass/Vol] 112 mg/dL High 70-100 [facility] Comment on above: Result Comment: [place] Glucose Reference Range is dependent on time and content of last meal. Glucose of more than 200 mg/dL in a nonstressed, ambulatory subject supports the diagnosis of Diabetes Mellitus. ADA recommended reference range Performed By: #### G STEVIELS #### Point of Care testing , Potassium [Moles/Vol] 3.7 mmol/L Normal 3.5-5.1 [facility] Comment on above: Performed By: #### G STEVIELS #### Point of Care testing , Sodium [Moles/Vol] 150 mmol/L High 136-146 [facility] Comment on above: Performed By: #### G STEVIELS #### Point of Care testing , Urea nitrogen [Mass/Vol] 31 mg/dL High 9-23 [facility] Comment on above: Performed By: #### G STEVIELS #### Point of Care testing , Complete Blood Count Auto Di ffon 09-02-2021 Basophils (Bld) [#/Vol] 0.0 10*3/uL Normal 0.0-0.2 [facility] Comment on above: Result Comment: PERF ORMED BY: [facility] [place] [address] PATHOLOGIST ANIMAL SCIENTIST HEMANT CHÁVEZ M.D. Performed By: #### G STEVIELS #### Point of Care testing , Basophils/100 WBC (Bld) 0.1 % Normal . [facility] Comment on above: Performed By: #### G LULS #### Point of Care testing , Eosinophils (Bld) [#/Vol] 0.2 10*3/uL Normal 0.0-0.45 [facility] Comment on above: Performed By: #### G LULS #### Point of Care testing , Eosinophils/100 WBC (Bld) 1.5 % Normal . [facility] Comment on above: Performed By: #### G LULS #### Point of Care testing , Erythrocyte distribution width (RBC) [Ratio] 16.3 % High 11.9-15.3 [facility] Comment on above: Performed By: #### G LULS #### Point of Care testing , Hematocrit (Bld) [Volume fraction] 39.3 % Normal 34.0-46.4 [facility] Comment on above: Performed By: #### G LULS #### Point of Care testing , Hemoglobin (Bld) [Mass/Vol] 12.2 g/dL Normal 11.8-15.4 [facility] Comment on above: Performed By: #### G LULS #### Point of Care testing , Lymphocytes (Bld) [#/Vol] 1.1 10*3/uL Normal 1.00-4.8 [facility] Comment on above: Performed By: #### G LULS #### Point of Care testing , Lymphocytes/100 WBC (Bld) 9.0 % Normal . [facility] Comment on above: Performed By: #### G LULS #### Point of Care testing , MCH (RBC) [Entitic mass] 27.5 pg Normal 24.7-34.3 [facility] Comment on above: Performed By: #### G LULS #### Point of Care testing , MCV (RBC) [Entitic vol] 88.2 fL Normal 80-100 [facility] Comment on above: Performed By: #### Stan BANGURA #### Point of Care testing , Mean Corpuscular HGB Conc 31.2 g/dL Low 32.0-35.0 [facility] Comment on above: Performed By: #### Stan BANGURA #### Point of Care testing , Monocytes (Bld) [#/Vol] 1.0 10*3/uL High 0.0-0.8 [facility] Comment on above: Performed By: #### Stan BANGURA #### Point of Care testing , Monocytes/100 WBC (Bld) 8.0 % Normal . [facility] Comment on above: Performed By: #### Stan BANGURA #### Point of Care testing , Neutrophils (Bld) [#/Vol] 9.9 10*3/uL High 1.8-7.7 [facility] Comment on above: Performed By: #### Stan BANGURA #### Point of Care testing , Neutrophils/100 WBC (Bld) 81.4 % Normal . [facility] Comment on above: Performed By: #### Stan BANGURA #### Point of Care testing , Nucleated RBC/100 WBC (Bld) [Ratio] 0.1 % Normal 0-0.5 [facility] Comment on above: Performed By: #### Stan BANGURA #### Point of Care testing , Platelet mean volume (Bld) [Entitic vol] 8.0 fL Normal 6.3-10.7 [facility] Comment on above: Performed By: #### Stan BANGURA #### Point of Care testing , Platelets (Bld) [#/Vol] 291 10*3/uL Normal 150-450 [facility] Comment on above: Performed By: #### Stan BANGURA #### Point of Care testing , RBC (Bld) [#/Vol] 4.45 10*6/uL Normal 3.60-5.00 [facility] Comment on above: Performed By: #### Stan BANGURA #### Point of Care testing , WBC (Bld) [#/Vol] 12.1 10*3/uL High 4.5-11.0 [facility] Comment on above: Performed By: #### G LULS #### Point of Care testing , Glucose Poct Glucometerson 0 09-02-2021 Glucose [Mass/Vol] 124 mg/dL Normal [facility] Comment on above: Result Comment: [place] om Glucose Reference Range is dependent on time and content of last meal. Glucose of more than 200 mg/dL in a nonstressed, ambulatory subject supports the diagnosis of Diabetes Mellitus. PERFORMED BY: [address] [place] [address] PATHOLOGIST ANIMAL SCIENTIST HEMANT CHÁVEZ M.D. Performed By: #### G LULS #### Point of Care testing , Glucose [Mass/Vol] 130 mg/dL Normal [facility] Comment on above: Result Comment: [place] Glucose Reference Range is dependent on time and content of last meal. Glucose of more than 200 mg/dL in a nonstressed, ambulatory subject supports the diagnosis of Diabetes Mellitus. PERFORMED BY: [facility] [address] [place] [address] PATHOLOGIST ANIMAL SCIENTIST HEMANT CHÁVEZ M.D. Performed By: #### G LULS #### Point of Care testing , Commemt1 Glu2: [facility]aned [facility] Comment on above: Result Comment: PERF ORMED BY: [facility] [address] [place] [address] PATHOLOGIST ANIMAL SCIENTIST HEMANT CHÁVEZ M.D. Performed By: #### G LULS #### Point of Care testing , Glucose [Mass/Vol] 131 mg/dL Normal [facility] Comment on above: Result Comment: [place] om Glucose Reference Range is dependent on time and content of last meal. Glucose of more than 200 mg/dL in a nonstressed, ambulatory subject supports the diagnosis of Diabetes Mellitus. Performed By: #### G LULS #### Point of Care testing , Commemt1 Glu2: [facility] Comment on above: Result Comment: PERF ORMED BY: [place] [id number] PATHOLOGIST ANIMAL SCIENTIST HEMANT CHÁVEZ M.D. Performed By: #### C BC, BMP #### [address] Glucose [Mass/Vol] 107 mg/dL Normal [facility] Comment on above: Result Comment: [facility] Glucose Reference Range is dependent on time and content of last meal. Glucose of more than 200 mg/dL in a nonstressed, ambulatory subject supports the diagnosis of Diabetes Mellitus. Performed By: #### C BC, BMP #### [address] Thyroid Stimulating Hormoneo n 09-02-2021 TSH Qn 7.55 m[IU]/L High 0.45-5.33 [facility] Comment on above: Performed By: #### G LULS #### Point of Care testing , Troponin I High Sensitivityo n 09-02-2021 Troponin I High Sensitivity 31 pg/mL High 0-15 [facility] Comment on above: Result Comment: PERF ORMED BY: [place] [address] PATHOLOGIST ANIMAL SCIENTIST HEMANT CHÁVEZ M.D. Performed By: #### G LULS #### Point of Care testing , Vit. B12/Folate Profileon Cobalamin (Vitamin B12) [Mass/Vol] 187 pg/mL Normal 180-914 [facility] Comment on above: Performed By: #### G LULS #### Point of Care testing , Folate 9.3 ng/mL Normal >5.9 [facility] Comment on above: Result Comment: Marjorie te reference range: >5.9 ng/ml The WHO technical consultation on folate and vitamin b12 deficiencies has determined that folate concentrations less than 4 ng/ml are considered deficient. Performed By: #### G LULS #### Point of Care testing , Vitamin D 25 Hydroxy Totalon 09-02-2021 Vitamin D 25 Hydroxy Total 16.6 ng/mL Low 30-100 [facility] Comment on above: Result Comment: MIHAELA MIN D STATUS 25(OH)VITAMIN D RANGE (ng/mL) Deficient <20 Insufficient 20 to <30 Sufficient 30 to 100 Reference: Jayce MF,Arnoldo NC, Hossein DOMINIQUE, et al. Evaluation,treatment, and prevention of vitamin D deficiency; an Endocrine Society clinical practice guideline. JCEM. 2010; 96(7):1911-30. PERFORMED BY: [facility] [place] [address] PATHOLOGIST ANIMAL SCIENTIST HEMANT CHÁVEZ M.D. Performed By: #### G LULS #### Point of Care testing , Basic Metabolic Panelon 08-08 Calcium [Mass/Vol] 8.8 mg/dL Normal 8.2-10.2 [facility] Comment on above: Performed By: #### G LULS #### Point of Care testing , Chloride [Moles/Vol] 106 mmol/L Normal 95-114 [facility] Comment on above: Performed By: #### G LULS #### Point of Care testing , CO2 [Moles/Vol] 23.9 mmol/L Normal 22.0-30.0 [facility] Comment on above: Performed By: #### G LULS #### Point of Care testing , Creatinine [Mass/Vol] 1.62 mg/dL High 0.44-1.03 [facility] Comment on above: Performed By: #### G LULS #### Point of Care testing , Creatinine Clr Calc Pharmacy 39.63 [facility] Comment on above: Performed By: #### G LULS #### Point of Care testing , Estimated GFR ( Roseline 38 [facility] Comment on above: Result Comment: GFR estimated reference range: According to KDOQI guidelines, <60 ml/min/1.73m2 is sufficient to diagnose a patient with chronic kidney disease. Performed By: #### G LULS #### Point of Care testing , Estimated GFR (Non- Am 32 [facility] Comment on above: Performed By: #### G LULS #### Point of Care testing , Glucose [Mass/Vol] 158 mg/dL High 70-100 [facility] Comment on above: Result Comment: [place] om Glucose Reference Range is dependent on time and content of last meal. Glucose of more than 200 mg/dL in a nonstressed, ambulatory subject supports the diagnosis of Diabetes Mellitus. ADA recommended reference range Performed By: #### G LULS #### Point of Care testing , Potassium [Moles/Vol] 3.1 mmol/L Low 3.5-5.1 [facility] Comment on above: Performed By: #### G LULS #### Point of Care testing , Sodium [Moles/Vol] 146 mmol/L Normal 136-146 [facility] Comment on above: Performed By: #### G LULS #### Point of Care testing , Urea nitrogen [Mass/Vol] 41 mg/dL High 9-23 [facility] Comment on above: Performed By: #### G LULS #### Point of Care testing , Beta Hydroxybuterateon 09-01 Beta Hydroxybuterate 2.73 mmol/L High 0.05-0.27 [facility] Comment on above: Performed By: #### G LULS #### Point of Care testing , COVID-19 Antigenon 2 COVID-19 Antigen Healthcare Worker?: Y Reference Range: Negative Negative results, from patients with symptom onset beyond five days, should be treated as presumptive and confirmation with a molecular assay, if necessary, for patient management, may be performed. Negative results do not rule out COVID-19 and should not be used as the sole basis for treatment or patient management decisions, including infection control decisions. Negative results should be considered in the context of a patient's recent exposures, history and the presence of clinical signs and symptoms consistent with COVID-19. The [place] SARS Antigen JW does not differentiate between SARS-CoV and SARS-CoV-2. This test was developed and its performance characteristic determined by [employer] and validated at [facility]. This test has not been FDA cleared or approved. This test has been authorized by FDA under an Emergency Use Authorization (EUA). This test has been validated in accordance with the FDA's Guidance Document (Policy for Diagnostics Testing in Laboratories Certified to Perform High Complexity Testing under CLIA prior to Emergency Use Authorization for Coronavirus Disease-2019 during the Public Health Emergency) issued on July 10, 2019. This test is only authorized for the duration of time the declaration that circumstances exist justifying the authorization of the emergency use of in vitro diagnostic tests for detection of SARS-CoV-2 virus and/or diagnosis of COVID-19 infection under section 564(b)(1) of the Act, 21 U.S.C. 360bbb-3(b)(1), unless the authorization is terminated or revoked sooner. SARS-CoV+SARS-CoV-2 (COVID-19) Ag [Presence] in Respiratory specimen by Rapid immunoassay Negative for SARS Antigen by JW PERFORMED BY: [facility] [address] [place] [address] PATHOLOGIST ANIMAL SCIENTIST HEMANT CHÁVEZ M.D. Normal [facility] Comment on above: Performed By: #### G LULS #### Point of Care testing , COVID-19 [facility] 09-01-2021 SARS-CoV-2 (COVID-19) RNA NAILA+probe Ql (Unsp spec) Negative Normal Negative [facility] Comment on above: Order Comment: Healt hcare Worker?: Y Result Comment: Testing for SARS-CoV-2 by RT-PCR This test was developed and its performance characteristics determined by [employer]) and validated at the [facility]. This test has not been FDA cleared or approved. This test has been authorized by FDA under an Emergency Use Authorization (EUA). This test has been validated in accordance with the FDA's Guidance Document (Policy for Diagnostics Testing in Laboratories Certified to Perform High Complexity Testing under CLIA prior to Emergency Use Authorization for Coronavirus Disease-2019 during the Public Health Emergency) issued on July 10, 2019. This test is only authorized for the duration of time the declaration that circumstances exist justifying the authorization of the emergency use of in vitro diagnostic tests for detection of SARS-CoV-2 virus and/or diagnosis of COVID-19 infection under section 564(b)(1) of the Act, 21 U.S.C. 360bbb-3(b)(1), unless the authorization is terminated or revoked sooner. PERFORMED BY: [place] [address] PATHOLOGIST ANIMAL SCIENTIST HEMANT CHÁVEZ M.D. Performed By: #### G LUKURT #### Point of Care testing , CT abdomen pelvis w conon CT abdomen pelvis w con [facility] [place] [address] [place] [address] CT Scan Report Signed Patient: Jeanmarie Garcia MR#: [id number] : 1950 Acct:[id number] Age/Sex: 71 / F ADM Date: 09/01/21 Loc: ER Room: Type: [facility] ER Attending Dr: Ordering Provider: Delon Bahena DO Date of Service: 09/01/21 CT/CT abdomen pelvis w con: ams, recent cholecystectomy, leukocytosis Copies to: Delon Bahena DO CT abdomen and pelvis withcontrast TECHNIQUE: Axial imaging with 2-D reconstruction.90 cc of Isovue-300.. The CT exam was performed using one or more the following dose reduction techniques: Automated exposure control, adjustment of the MA and/or Kv according to patient size, or use of the iterative reconstruction technique. COMPARISON:None History: Cholecystectomy last week. Basilar atelectasis identified. No hepatic mass or intrahepatic biliary ductal dilatation identified. Normal density of the liver parenchyma identified. No gallbladder abnormality identified. No extrahepatic biliary ductal dilatation identified. There is no splenomegaly or splenic mass identified. No pancreatic mass or ductal dilatation identified. The adrenal glands are unremarkable. No nephrolithiasis or obstructive uropathy is identified. No abdominal aortic aneurysm identified. No significant retroperitoneal abnormalities identified. There are multiple loops of thickened small bowel consistent with enteritis. Mild dilatation of the small bowel is fluid-filled without transition point. No pneumatosis. The appendix is normal. There is no colonic wall thickening, distention or pericolonic inflammatory changes. Urinary bladder is unremarkable. Reproductive structures are unremarkable. No free intraperitoneal air or fluid is identified. The bony structures are unremarkable. No subcutaneous soft tissue abnormality identified.Small fat-containing umbilical hernia identified. CT/CT abdomen pelvis w con IMPRESSION: Mild enteritis. No fluid collections. Unremarkable cholecystectomy changes. Small fat- containing umbilical hernia. Basilar atelectasis. Impression dictated by: Gerson White M.D.09/01/2021 2:24 PM Dictation Location: RADIO-PC-13 Transcribed By: JEANNIE 09/01/21 1424 Dictated By: Gerson White DO 09/01/21 1413 Signed By: 09/01/[address] [facility] CT head/brain wo conon 09-01 CT head/brain wo con [facility] [place] [address] CT Scan Report Signed Patient: Jeanmarie Garcia MR#: [id number] : 1950 Acct:[id number] Age/Sex: 71 / F ADM Date: 09/01/21 Loc: Room: [address] [place] [address] Type: ADM IN Attending Dr: Elizabet Wilson MD Ordering Provider: Delon Bahena DO Date of Service: 09/01/21 CT/CT head/brain wo con: ams, fall Copies to: MD Delon Smalls DO CT head 09/01/2021. CLINICAL DATA: Mental status changes. Status post fall. TECHNIQUE: CT of the head was performed without contrast. This CT exam was performed using one or more of the following dose reduction techniques: Automated exposure control, adjustment of the mA and/or kV according to patient size, or use of iterative reconstruction technique. COMPARISON: None. FINDINGS: There are mild parenchymal volume loss and chronic microvascular ischemic changes. Atherosclerotic disease is noted. There is no acute intracranial hemorrhage. No intracranial mass or mass effect is identified. No abnormal extra-axial fluid collection is seen. The paranasal sinuses and the mastoids appear unremarkable. No scalp hematoma or skull fracture is noted. CT/CT head/brain wo con IMPRESSION: 1. Mild parenchymal volume loss and chronic microvascular ischemic changes. 2. No acute intracranial abnormality. 3. No scalp hematoma or skull fracture. Impression dictated by: Kana Perez Jr., M.D.09/01/2021 4:50 PM Dictation Location: RADIO-PC-06 Transcribed By: JEANNIE 09/01/21 1650 Dictated By: Kana Perez Jr, MD 09/01/21 1645 Signed By: 09/01/21 1650 Normal [facility] Complete Blood Count Auto Di ffon 09-01-2021 Basophils (Bld) [#/Vol] 0.0 10*3/uL Normal 0.0-0.2 [facility] Comment on above: Result Comment: PERF ORMED BY: [place] [address] PATHOLOGIST ANIMAL SCIENTIST HEMANT CHÁVEZ M.D. Performed By: #### C BC, LACTIC, HS TROP, HEPATIC, BMP, LIPASE, BHOB, T4F, TSH3 #### [address] Basophils/100 WBC (Bld) 0.3 % Normal . [facility] Comment on above: Performed By: #### C BC, LACTIC, HS TROP, HEPATIC, BMP, LIPASE, BHOB, T4F, TSH3 #### [address] Eosinophils (Bld) [#/Vol] 0.0 10*3/uL Normal 0.0-0.45 [facility] Comment on above: Performed By: #### C BC, LACTIC, HS TROP, HEPATIC, BMP, LIPASE, BHOB, T4F, TSH3 #### [address] Eosinophils/100 WBC (Bld) 0.1 % Normal . [facility] Comment on above: Performed By: #### C BC, LACTIC, HS TROP, HEPATIC, BMP, LIPASE, BHOB, T4F, TSH3 #### [address] Erythrocyte distribution width (RBC) [Ratio] 16.1 % High 11.9-15.3 [facility] Comment on above: Performed By: #### C BC, LACTIC, HS TROP, HEPATIC, BMP, LIPASE, BHOB, T4F, TSH3 #### [address] Hematocrit (Bld) [Volume fraction] 37.3 % Normal 34.0-46.4 [facility] Comment on above: Performed By: #### C BC, LACTIC, HS TROP, HEPATIC, BMP, LIPASE, BHOB, T4F, TSH3 #### [address] Hemoglobin (Bld) [Mass/Vol] 11.7 g/dL Low 11.8-15.4 [facility] Comment on above: Performed By: #### C BC, LACTIC, HS TROP, HEPATIC, BMP, LIPASE, BHOB, T4F, TSH3 #### [address] Lymphocytes (Bld) [#/Vol] 1.5 10*3/uL Normal 1.00-4.8 [facility] Comment on above: Performed By: #### C BC, LACTIC, HS TROP, HEPATIC, BMP, LIPASE, BHOB, T4F, TSH3 #### [address] Lymphocytes/100 WBC (Bld) 9.1 % Normal . [facility] Comment on above: Performed By: #### C BC, LACTIC, HS TROP, HEPATIC, BMP, LIPASE, BHOB, T4F, TSH3 #### [address] MCH (RBC) [Entitic mass] 27.4 pg Normal 24.7-34.3 [facility] Comment on above: Performed By: #### C BC, LACTIC, HS TROP, HEPATIC, BMP, LIPASE, BHOB, T4F, TSH3 #### [address] MCV (RBC) [Entitic vol] 87.3 fL Normal 80-100 [facility] Comment on above: Performed By: #### C BC, LACTIC, HS TROP, HEPATIC, BMP, LIPASE, BHOB, T4F, TSH3 #### [address] Mean Corpuscular HGB Conc 31.3 g/dL Low 32.0-35.0 [facility] Comment on above: Performed By: #### C BC, LACTIC, HS TROP, HEPATIC, BMP, LIPASE, BHOB, T4F, TSH3 #### [facility] [address] Monocytes (Bld) [#/Vol] 1.4 10*3/uL High 0.0-0.8 [facility] Comment on above: Performed By: #### C BC, LACTIC, HS TROP, HEPATIC, BMP, LIPASE, BHOB, T4F, TSH3 #### [facility] [address] Monocytes/100 WBC (Bld) 8.6 % Normal . [facility] Comment on above: Performed By: #### C BC, LACTIC, HS TROP, HEPATIC, BMP, LIPASE, BHOB, T4F, TSH3 #### [address] Neutrophils (Bld) [#/Vol] 13.2 10*3/uL High 1.8-7.7 [facility] Comment on above: Performed By: #### C BC, LACTIC, HS TROP, HEPATIC, BMP, LIPASE, BHOB, T4F, TSH3 #### [address] Neutrophils/100 WBC (Bld) 81.9 % Normal . [facility] Comment on above: Performed By: #### C BC, LACTIC, HS TROP, HEPATIC, BMP, LIPASE, BHOB, T4F, TSH3 #### [address] Nucleated RBC/100 WBC (Bld) [Ratio] 0.0 % Normal 0-0.5 [facility] Comment on above: Performed By: #### C BC, LACTIC, HS TROP, HEPATIC, BMP, LIPASE, BHOB, T4F, TSH3 #### [address] Platelet mean volume (Bld) [Entitic vol] 7.9 fL Normal 6.3-10.7 [facility] Comment on above: Performed By: #### C BC, LACTIC, HS TROP, HEPATIC, BMP, LIPASE, BHOB, T4F, TSH3 #### [place] [address] [place] Platelets (Bld) [#/Vol] 317 10*3/uL Normal 150-450 [facility] Comment on above: Performed By: #### C BC, LACTIC, HS TROP, HEPATIC, BMP, LIPASE, BHOB, T4F, TSH3 #### [facility] [address] RBC (Bld) [#/Vol] 4.27 10*6/uL Normal 3.60-5.00 [facility] Comment on above: Performed By: #### C BC, LACTIC, HS TROP, HEPATIC, BMP, LIPASE, BHOB, T4F, TSH3 #### [facility] [address] WBC (Bld) [#/Vol] 16.1 10*3/uL High 4.5-11.0 [facility] Comment on above: Performed By: #### C BC, LACTIC, HS TROP, HEPATIC, BMP, LIPASE, BHOB, T4F, TSH3 #### [address] Dipstick and Microscopicon 0 09-01-2021 Bacteria,Urine None Seen Normal None Seen [facility] Comment on above: Order Comment: Name Collection Type:: Straight Catheter Performed By: #### C BC, BMP #### [address] Hyaline Casts,Urine 20-49 High 0-1 [facility] Comment on above: Order Comment: Name Collection Type:: Straight Catheter Performed By: #### C BC, BMP #### [address] Other Casts,Urine None Seen Normal None Seen [facility] Comment on above: Order Comment: Name Collection Type:: Straight Catheter Performed By: #### C BC, BMP #### [address] RBC,Urine 3-4 Normal 0-4 [facility] Comment on above: Order Comment: Name Collection Type:: Straight Catheter Performed By: #### C BC, BMP #### [address] [place] [address] [facility] Renal Epithelial Cells,Urine None Seen Normal 0-1 [facility] Comment on above: Order Comment: Name Collection Type:: Straight Catheter Performed By: #### C BC, BMP #### [address] Squamous Epithelial Cell,Urine 20-30 High 0-2 [facility] Comment on above: Order Comment: Name Collection Type:: Straight Catheter Performed By: #### C BC, BMP #### [place] [id number] [place] WBC,Urine 10-19 High 0-4 [facility] Comment on above: Order Comment: Name Collection Type:: Straight Catheter Performed By: #### C BC, BMP #### [address] Yeast,Urine None Seen Normal None Seen [facility] Comment on above: Order Comment: Name Collection Type:: Straight Catheter Result Comment: PERF ORMED BY: [place] [address] PATHOLOGIST ANIMAL SCIENTIST HEMANT CHÁVEZ M.D. Performed By: #### C BC, BMP #### [address] ECG 12 lead ECGon 09-01-2021 ECG 12 lead ECG [facility] Main [place] [address] [place] [address] Electrocardiograph Report Signed Patient: Jeanmarie Garcia MR#: [id number] 757 : 1950 Acct:[id number] Age/Sex: 71 / F ADM Date: 09/01/21 Loc: Room: [address] [place] [address] Type: DIS IN Attending Dr: Martin Arevalo MD Ordering Provider: Delon Bahena DO Date of Service: 09/01/21 ECG/ECG 12 lead ECG: Altered Mental Status Copies to: Test Reason : Blood Pressure : 127/079 mmHG Vent. Rate : 105 BPM Atrial Rate : 105 BPM P-R Int : 134 ms QRS Dur : 084 ms QT Int : 356 ms P-R-T Axes : 068 -22 091 degrees QTc Int : 470 ms Confirmed by Delon Bahena DO ([id number]) on 09/01/2021 7:47:06 PM Referred By: Electronically Signed By:Delon Bahena DO Transcribed By: MUS Signed By Delon Bahena DO 09/01 [facility] Free T4 (Free Thyroxine)on 0 09-01-2021 Free T4 [Mass/Vol] 0.76 ng/dL Normal 0.61-1.12 [facility] Comment on above: Performed By: #### G LULS #### Point of Care testing , Glucose Poct Glucometerson 0 09-01-2021 Commemt1 Glu2: Cleaned Meter [facility] Comment on above: Result Comment: PERF ORMED BY: [facility] [address] [address] PATHOLOGIST ANIMAL SCIENTIST HEMANT CHÁVEZ M.D. Performed By: #### G LULS #### Point of Care testing , Glucose [Mass/Vol] 128 mg/dL Normal [facility] Comment on above: Result Comment: [place] Glucose Reference Range is dependent on time and content of last meal. Glucose of more than 200 mg/dL in a nonstressed, ambulatory subject supports the diagnosis of Diabetes Mellitus. Performed By: #### G LULS #### Point of Care testing , Hepatic Panelon 09-01-2021 Albumin [Mass/Vol] 2.8 g/dL Low 3.2-5.5 [facility] Comment on above: Performed By: #### G LULS #### Point of Care testing , Albumin/Globulin [Mass ratio] 0.5 {ratio} [facility] Comment on above: Performed By: #### G LULS #### Point of Care testing , ALP [Catalytic activity/Vol] 88 U/L Normal 32-92 [facility] Comment on above: Performed By: #### G LULS #### Point of Care testing , ALT [Catalytic activity/Vol] 16 U/L Normal 10-60 [facility] Comment on above: Performed By: #### G LULS #### Point of Care testing , AST [Catalytic activity/Vol] 30 U/L Normal 10-42 [facility] Comment on above: Performed By: #### G STEVIELS #### Point of Care testing , Bilirubin [Mass/Vol] 1.2 mg/dL Normal 0.3-1.2 [facility] Comment on above: Performed By: #### G STEVIELS #### Point of Care testing , Bilirubin,Indirect 1.0 mg/dL Normal [facility] Comment on above: Performed By: #### G STEVIELS #### Point of Care testing , Bilirubin.indirect [Mass/Vol] 0.2 mg/dL Normal 0.0-0.4 [facility] Comment on above: Performed By: #### G STEVIELS #### Point of Care testing , Globulin (S) [Mass/Vol] 5.1 g/dL Normal [facility] Comment on above: Performed By: #### G STEVIELS #### Point of Care testing , Protein [Mass/Vol] 7.9 g/dL Normal 6.1-7.9 [facility] Comment on above: Performed By: #### G STEVIELS #### Point of Care testing , Lactic Acidon 09-01-2021 Lactate [Moles/Vol] 1.5 mmol/L Normal 0.5-2.2 [facility] Comment on above: Result Comment: PERF ORMED BY: [facility] [address] [place] [address] PATHOLOGIST ANIMAL SCIENTIST HEMANT CHÁVEZ M.D. Performed By: #### C BC, LACTIC, HS TROP, HEPATIC, BMP, LIPASE, BHOB, T4F, TSH3 #### [facility] [address] Lipaseon 09-01-2021 Lipase [Catalytic activity/Vol] 25.0 U/L Normal 22-51 [facility] Comment on above: Performed By: #### G LULS #### Point of Care testing , Magnesiumon 09-01-2021 Magnesium [Mass/Vol] 2.4 mg/dL Normal 1.6-2.6 [facility] Comment on above: Order Comment: Comme nt add on to prior labs Result Comment: PERF ORMED BY: [place] [phone] PATHOLOGIST ANIMAL SCIENTIST HEMANT CHÁVEZ M.D. Performed By: #### C BC, LACTIC, HS TROP, HEPATIC, BMP, LIPASE, BHOB, T4F, TSH3 #### [facility] [address] Holley Ag Negativeon 09-02-19 Holley Ag Negative Negative Normal Negative [facility] Comment on above: Result Comment: This is a duplicate [place] SARS Antigen (JW) result to be used for statistical tracking purpose only. PERFORMED BY: [place] [phone] PATHOLOGIST ANIMAL SCIENTIST HEMANT CHÁVEZ M.D. Performed By: #### G LULS #### Point of Care testing , Thyroid Stimulating Hormoneo n 09-01-2021 TSH Qn 3.09 m[IU]/L Normal 0.45-5.33 [facility] Comment on above: Result Comment: PERF ORMED BY: [place] [phone] PATHOLOGIST ANIMAL SCIENTIST HEMANT CHÁVEZ M.D. Performed By: #### G LULS #### Point of Care testing , Troponin I High Sensitivityo n 09-01-2021 Troponin I High Sensitivity 29 pg/mL High [address] Comment on above: Result Comment: PERF ORMED BY: [place] [address] PATHOLOGIST ANIMAL SCIENTIST HEMANT CHÁVEZ M.D. Performed By: #### G LULS #### Point of Care testing , Troponin I High Sensitivity 25 pg/mL High 0-15 [facility] Comment on above: Result Comment: PERF ORMED BY: [place] [address] PATHOLOGIST ANIMAL SCIENTIST HEMANT CHÁVEZ M.D. Performed By: #### C BC, LACTIC, HS TROP, HEPATIC, BMP, LIPASE, BHOB, T4F, TSH3 #### [facility] [address] [place] [address] [place] Urinalysison 09-01-2021 Appearance (U) Cloudy Critically abnormal Clear [facility] Comment on above: Order Comment: Name Collection Type:: Straight Catheter Performed By: #### C BC, BMP #### [facility] [address] [place] [address] [place] Bilirubin,Urine Negative Normal Negative [facility] Comment on above: Order Comment: Name Collection Type:: Straight Catheter Performed By: #### C BC, BMP #### [facility] [address] [place] [address] [place] Color (U) Yellow Normal Yellow [facility] Comment on above: Order Comment: Name Collection Type:: Straight Catheter Performed By: #### C BC, BMP #### [facility] [address] Glucose Ql (U) Normal Normal Normal [facility] Comment on above: Order Comment: Name Collection Type:: Straight Catheter Performed By: #### C BC, BMP #### [facility] [address] [place] [address] [place] Ketones Ql (U) 1+ High Negative [facility] Comment on above: Order Comment: Name Collection Type:: Straight Catheter Performed By: #### C BC, BMP #### [facility] [address] [place] [address] [place] Leukocyte esterase Test strip Ql (U) Negative Normal Negative [facility] Comment on above: Order Comment: Name Collection Type:: Straight Catheter Performed By: #### C BC, BMP #### [facility] [address] [place] [address] [place] Nitrite,Urine Negative Normal Negative [facility] Comment on above: Order Comment: Name Collection Type:: Straight Catheter Performed By: #### C BC, BMP #### [facility] [address] [place] [address] [place] Occult Blood,Urine 2+ High Negative [facility] Comment on above: Order Comment: Name Collection Type:: Straight Catheter Result Comment: PERF ORMED BY: [place] [address] PATHOLOGIST ANIMAL SCIENTIST HEMANT CHÁVEZ M.D. Performed By: #### C BC, BMP #### [address] pH (U) 5.5 [pH] Normal 5.0-9.0 [facility] Comment on above: Order Comment: Name Collection Type:: Straight Catheter Performed By: #### C BC, BMP #### [address] Protein (U) [Mass/Vol] 300 mg/dL High Negative [facility] Comment on above: Order Comment: Name Collection Type:: Straight Catheter Performed By: #### C BC, BMP #### [address] Specificy [place],Urine 1.026 Normal 1.001-1.030 [facility] Comment on above: Order Comment: Name Collection Type:: Straight Catheter Performed By: #### C BC, BMP #### [address] Urobilinogen,Urine Normal Normal Normal [facility] Comment on above: Order Comment: Name Collection Type:: Straight Catheter Performed By: #### C BC, BMP #### [address] Urine Cultureon 09-01-2021 Bacteria identified Cx Nom (U) ORGANISM: Klebsiella pneumoniae (O:KLEPNE) Eliot Count 75,000 Aerobic MANAV Charge (NUC86) --- SUSCEPTIBILITY -- ORGANISM: O:KLEPNE ANTIBIOTIC INTERPRETATION MANAV Amikacin S <16 Ampicillin R >16 Ampicillin/Sulbactam S <8/4 Aztreonam S <4 Cefazolin S <2 Cefepime S <2 Ceftazidime S <1 Ceftazidime/Avibactam S <8 Ceftriaxone S <1 Ciprofloxacin S <1 Ertapenem S <0.5 Gentamicin S <4 Levofloxacin S <2 Meropenem S <1 Nitrofurantoin I 64 Piperacillin/Tazobacta m S <16 Tetracycline S <4 Tigecycline S <2 Tobramycin S <4 Trimethoprim/Sulfameth oxazole S <2/38 S = SUSCEPTIBLE I = INTERMEDIATE R = RESISTANT BLANK = DATA NOT AVAILABLE, OR DRUG NOT ADVISABLE OR TESTED R* = RESISTANCE DUE TO EXTENDED SPECTRUM BETA-LACTAMASES ESBL = EXTENDED SPECTRUM BETA-LACTAMASE TFG = THYMIDINE-DEPENDENT STRAIN PENNY = BETA-LACTAMASE POSITIVE IB = INDUCIBLE BETA-LACTAMASE. APPEARS IN PLACE OF 'S' WITH SPECIES KNOWN TO POSSESS INDUCIBLE BETA-LACTAMASES. POTENTIALLY THEY MAY BECOME RESISTANT TO ALL B-LACTAM DRUGS. PERFORMED BY: [place] [address] PATHOLOGIST ANIMAL SCIENTIST HEMANT CHÁVEZ M.D. [facility] Comment on above: Performed By: #### C BC, BMP #### [facility] [address] Venous Blood Gason CO2 [Moles/Vol] 23.6 mmol/L Low 24.0-29.0 [facility] Comment on above: Performed By: #### G LULS #### Point of Care testing , HCO3 (Bld) [Moles/Vol] 22.6 mmol/L Low 23.0-29.0 [facility] Comment on above: Performed By: #### G LULS #### Point of Care testing , Respiratory Critical Normal [facility] Comment on above: Result Comment: Crit ical Value called on: 09/01/2021 at 12:46 PERFORMED BY: [place] [address] PATHOLOGIST ANIMAL SCIENTIST HEMANT CHÁVEZ M.D. Performed By: #### G LULS #### Point of Care testing , VBG Base Excess -0.6 mmol/L Normal -3.0-3.0 [facility] Comment on above: Performed By: #### G LULS #### Point of Care testing , VBG Draw Site Venous Normal [facility] Comment on above: Performed By: #### G LULS #### Point of Care testing , VBG Frac Inspired O2 21 % Normal [facility] Comment on above: Performed By: #### G LULS #### Point of Care testing , VBG O2 Content 7.7 mmol/L Normal 6.6-9.7 [facility] Comment on above: Performed By: #### G LULS #### Point of Care testing , VBG Oxygen Saturation 97.1 % Off scale high 73.0-76.0 [facility] Comment on above: Performed By: #### G LULS #### Point of Care testing , VBG PCO2 32.8 mm[Hg] Low 38.0-50.0 [facility] Comment on above: Performed By: #### G LULS #### Point of Care testing , VBG PH Venous PH 7.46 High 7.32-7.43 [facility] Comment on above: Performed By: #### G LULS #### Point of Care testing , VBG PO2 88.4 mm[Hg] Off scale high 35.0-45.0 [facility] Comment on above: Performed By: #### G LULS #### Point of Care testing , XR chest 1V portableon 09-01 XR chest 1V portable [facility] [address] XRay Report Signed Patient: Jeanmarie Garcia MR#: [id number] 757 : 1950 Acct:[id number] Age/Sex: 71 / F ADM Date: 09/01/21 Loc: ER Room: Type: PRE ER Attending Dr: Ordering Provider: Delon Bahena DO Date of Service: 09/01/21 XR/XR chest 1V portable: Altered Mental Status Copies to: Delon Bahena DO Plain film chestsingle view HISTORY:Altered mental status COMPARISON:04/14/2016 FINDINGS: The cardiac, mediastinal and hilar silhouettes are within normal limits. No acute lung process, pleural effusion or pneumothorax identified. Bony structures are intact. XR/XR chest 1V portable IMPRESSION: No acute process. Impression dictated by: Gerson White M.D.09/01/2021 12:02 PM Dictation Location: [facility]13 Transcribed By: [facility] 09/01/21 1202 Dictated By: Gerson White DO 09/01/21 1200 Signed By: 09/01/21 1202 Normal [facility] Glucose Poct Glucometerson 0 08-25-2021 Commemt1 Glu2: Cleaned Meter Normal [facility] Comment on above: Result Comment: PERF ORMED BY: [place] [address] PATHOLOGIST ANIMAL SCIENTIST HEMANT CHÁVEZ M.D. Performed By: #### C BC, LACTIC, HS TROP, HEPATIC, BMP, LIPASE, BHOB, T4F, TSH3 #### [address] Glucose [Mass/Vol] 143 mg/dL Normal [facility] Comment on above: Result Comment: [facility] Glucose Reference Range is dependent on time and content of last meal. Glucose of more than 200 mg/dL in a nonstressed, ambulatory subject supports the diagnosis of Diabetes Mellitus. Performed By: #### C BC, LACTIC, HS TROP, HEPATIC, BMP, LIPASE, BHOB, T4F, TSH3 #### [address] Basic Metabolic Panelon 08-07 Calcium [Mass/Vol] 8.4 mg/dL Normal 8.2-10.2 [facility] Comment on above: Performed By: #### C BC, LACTIC, HS TROP, HEPATIC, BMP, LIPASE, BHOB, T4F, TSH3 #### [facility] [address] [place] [id number] [place] Chloride [Moles/Vol] 102 mmol/L Normal 95-114 [facility] Comment on above: Performed By: #### C BC, LACTIC, HS TROP, HEPATIC, BMP, LIPASE, BHOB, T4F, TSH3 #### [facility] [address] [place] [id number] [place] CO2 [Moles/Vol] 26.5 mmol/L Normal 22.0-30.0 [facility] Comment on above: Performed By: #### C BC, LACTIC, HS TROP, HEPATIC, BMP, LIPASE, BHOB, T4F, TSH3 #### [facility] [address] Creatinine [Mass/Vol] 1.03 mg/dL Normal 0.44-1.03 [facility] Comment on above: Performed By: #### C BC, LACTIC, HS TROP, HEPATIC, BMP, LIPASE, BHOB, T4F, TSH3 #### [facility] [address] Creatinine Clr Calc Pharmacy 59.91 [facility] Comment on above: Performed By: #### C BC, LACTIC, HS TROP, HEPATIC, BMP, LIPASE, BHOB, T4F, TSH3 #### [facility] [address] Estimated GFR ( Roseline > 60 [facility] Comment on above: Result Comment: GFR estimated reference range: According to KDOQI guidelines, <60 ml/min/1.73m2 is sufficient to diagnose a patient with chronic kidney disease. Performed By: #### C BC, LACTIC, HS TROP, HEPATIC, BMP, LIPASE, BHOB, T4F, TSH3 #### [facility] [address] Estimated GFR (Non- Am 53 [facility] Comment on above: Performed By: #### C BC, LACTIC, HS TROP, HEPATIC, BMP, LIPASE, BHOB, T4F, TSH3 #### [facility] [address] Glucose [Mass/Vol] 148 mg/dL High 70-100 [facility] Comment on above: Result Comment: [place] Glucose Reference Range is dependent on time and content of last meal. Glucose of more than 200 mg/dL in a nonstressed, ambulatory subject supports the diagnosis of Diabetes Mellitus. ADA recommended reference range Performed By: #### C BC, LACTIC, HS TROP, HEPATIC, BMP, LIPASE, BHOB, T4F, TSH3 #### [address] Potassium [Moles/Vol] 3.8 mmol/L Normal 3.5-5.1 [facility] Comment on above: Performed By: #### C BC, LACTIC, HS TROP, HEPATIC, BMP, LIPASE, BHOB, T4F, TSH3 #### [address] Sodium [Moles/Vol] 137 mmol/L Normal 136-146 [facility] Comment on above: Performed By: #### C BC, LACTIC, HS TROP, HEPATIC, BMP, LIPASE, BHOB, T4F, TSH3 #### [address] Urea nitrogen [Mass/Vol] 12 mg/dL Normal 9-23 [facility] Comment on above: Performed By: #### C BC, LACTIC, HS TROP, HEPATIC, BMP, LIPASE, BHOB, T4F, TSH3 #### [address] Glucose Poct Glucometerson 0 08-24-2021 Commemt1 Glu2: Cleaned Meter [facility] Comment on above: Result Comment: PERF ORMED BY: [place] [address] PATHOLOGIST ANIMAL SCIENTIST HEMANT CHÁVEZ M.D. Performed By: #### C BC, LACTIC, HS TROP, HEPATIC, BMP, LIPASE, BHOB, T4F, TSH3 #### [address] Glucose [Mass/Vol] 239 mg/dL Normal [facility] Comment on above: Result Comment: [facility] Glucose Reference Range is dependent on time and content of last meal. Glucose of more than 200 mg/dL in a nonstressed, ambulatory subject supports the diagnosis of Diabetes Mellitus. Performed By: #### C BC, LACTIC, HS TROP, HEPATIC, BMP, LIPASE, BHOB, T4F, TSH3 #### [address] Commemt1 Glu2: Cleaned Meter Normal [facility] Comment on above: Result Comment: PERF ORMED BY: [place] [address] PATHOLOGIST ANIMAL SCIENTIST HEMANT CHÁVEZ M.D. Performed By: #### C BC, BMP #### [address] Glucose [Mass/Vol] 191 mg/dL Normal [facility] Comment on above: Result Comment: [place] om Glucose Reference Range is dependent on time and content of last meal. Glucose of more than 200 mg/dL in a nonstressed, ambulatory subject supports the diagnosis of Diabetes Mellitus. Performed By: #### C BC, BMP #### [address] Glucose [Mass/Vol] 149 mg/dL Normal [facility] Comment on above: Result Comment: [place] om Glucose Reference Range is dependent on time and content of last meal. Glucose of more than 200 mg/dL in a nonstressed, ambulatory subject supports the diagnosis of Diabetes Mellitus. PERFORMED BY: [place] [address] PATHOLOGIST ANIMAL SCIENTIST HEMANT CHÁVEZ M.D. Performed By: #### C BC, BMP #### [address] Glucose [Mass/Vol] 177 mg/dL Normal [facility] Comment on above: Result Comment: [place] om Glucose Reference Range is dependent on time and content of last meal. Glucose of more than 200 mg/dL in a nonstressed, ambulatory subject supports the diagnosis of Diabetes Mellitus. PERFORMED BY: [place] [address] PATHOLOGIST ANIMAL SCIENTIST HEMANT CHÁVEZ M.D. Performed By: #### C BC, LACTIC, HS TROP, HEPATIC, BMP, LIPASE, BHOB, T4F, TSH3 #### [address] HCV Ab with Rfx to NAAon HCV Ab with Reflex to Qual NAILA <0.1 Normal 0.0-0.9 [facility] Comment on above: Order Comment: Which is this, the Source or the Person with the Exposure?: SOURCE Source Medical Record: [id number] Exposed Performed By: #### C BC, BMP #### [address] Interpretation Normal . [facility] Comment on above: Order Comment: Which is this, the Source or the Person with the Exposure?: SOURCE Source Medical Record: [id number] Exposed Result Comment: Nega tive Not infected with HCV, unless recent infection is suspected or other evidence exists to indicate HCV infection. Performed at: [facility] [id number] [place]: Spencer Mcdaniels PhD, Phone: [phone] PERFORMED BY: [place] [address] PATHOLOGIST ANIMAL SCIENTIST HEMANT CHÁVEZ M.D. Performed By: #### C BC, BMP #### [address] HIV Screen ([facility])on HIV Screen ([facility]) Non-Reactive Normal Nonreactive [facility] Comment on above: Order Comment: Which is this, the Source or the Person with the Exposure?: SOURCE Source Medical Record: [id number] Exposed Result Comment: PERF ORMED BY: [place] [address] PATHOLOGIST ANIMAL SCIENTIST HEMANT CHÁVEZ M.D. Performed By: #### C BC, BMP #### [address] Hemogram CBC Without Diffon 08-24-2021 Erythrocyte distribution width (RBC) [Ratio] 15.5 % High 11.9-15.3 [facility] Comment on above: Performed By: #### C BC, LACTIC, HS TROP, HEPATIC, BMP, LIPASE, BHOB, T4F, TSH3 #### [address] Hematocrit (Bld) [Volume fraction] 35.5 % Normal 34.0-46.4 [facility] Comment on above: Performed By: #### C BC, LACTIC, HS TROP, HEPATIC, BMP, LIPASE, BHOB, T4F, TSH3 #### [facility] [address] Hemoglobin (Bld) [Mass/Vol] 11.3 g/dL Low 11.8-15.4 [facility] Comment on above: Performed By: #### C BC, LACTIC, HS TROP, HEPATIC, BMP, LIPASE, BHOB, T4F, TSH3 #### [address] MCH (RBC) [Entitic mass] 28.0 pg Normal 24.7-34.3 [facility] Comment on above: Performed By: #### C BC, LACTIC, HS TROP, HEPATIC, BMP, LIPASE, BHOB, T4F, TSH3 #### [address] MCV (RBC) [Entitic vol] 87.7 fL Normal 80-100 [facility] Comment on above: Performed By: #### C BC, LACTIC, HS TROP, HEPATIC, BMP, LIPASE, BHOB, T4F, TSH3 #### [address] Mean Corpuscular HGB Conc 31.9 g/dL Low 32.0-35.0 [facility] Comment on above: Performed By: #### C BC, LACTIC, HS TROP, HEPATIC, BMP, LIPASE, BHOB, T4F, TSH3 #### [address] Platelet mean volume (Bld) [Entitic vol] 7.7 fL Normal 6.3-10.7 [facility] Comment on above: Result Comment: PERF ORMED BY: [place] [address] PATHOLOGIST ANIMAL SCIENTIST HEMANT CHÁVEZ M.D. Performed By: #### C BC, LACTIC, HS TROP, HEPATIC, BMP, LIPASE, BHOB, T4F, TSH3 #### [facility] [address] Platelets (Bld) [#/Vol] 229 10*3/uL Normal 150-450 [facility] Comment on above: Performed By: #### C BC, LACTIC, HS TROP, HEPATIC, BMP, LIPASE, BHOB, T4F, TSH3 #### [facility] [address] RBC (Bld) [#/Vol] 4.05 10*6/uL Normal 3.60-5.00 [facility] Comment on above: Performed By: #### C BC, LACTIC, HS TROP, HEPATIC, BMP, LIPASE, BHOB, T4F, TSH3 #### [address] WBC (Bld) [#/Vol] 9.4 10*3/uL Normal 3.8-11.6 [facility] Comment on above: Performed By: #### C BC, LACTIC, HS TROP, HEPATIC, BMP, LIPASE, BHOB, T4F, TSH3 #### [facility] [address] [place] [address] Hepatic Panelon 08-24-2021 Albumin [Mass/Vol] 3.2 g/dL Normal 3.2-5.5 [facility] Comment on above: Performed By: #### C BC, LACTIC, HS TROP, HEPATIC, BMP, LIPASE, BHOB, T4F, TSH3 #### [facility] [address] [place] [address] Albumin/Globulin [Mass ratio] 0.8 {ratio} Normal [facility] Comment on above: Performed By: #### C BC, LACTIC, HS TROP, HEPATIC, BMP, LIPASE, BHOB, T4F, TSH3 #### [address] ALP [Catalytic activity/Vol] 99 U/L High 32-92 [facility] Comment on above: Performed By: #### C BC, LACTIC, HS TROP, HEPATIC, BMP, LIPASE, BHOB, T4F, TSH3 #### [address] [place] [address] [place] ALT [Catalytic activity/Vol] 10 U/L Normal 10-60 [facility] Comment on above: Performed By: #### C BC, LACTIC, HS TROP, HEPATIC, BMP, LIPASE, BHOB, T4F, TSH3 #### [facility] [address] AST [Catalytic activity/Vol] 13 U/L Normal 10-42 [facility] Comment on above: Performed By: #### C BC, LACTIC, HS TROP, HEPATIC, BMP, LIPASE, BHOB, T4F, TSH3 #### [facility] [address] Bilirubin [Mass/Vol] 0.5 mg/dL Normal 0.3-1.2 [facility] Comment on above: Performed By: #### C BC, LACTIC, HS TROP, HEPATIC, BMP, LIPASE, BHOB, T4F, TSH3 #### [facility] [address] Bilirubin,Indirect Not performed Normal [facility] Comment on above: Performed By: #### C BC, LACTIC, HS TROP, HEPATIC, BMP, LIPASE, BHOB, T4F, TSH3 #### [facility] [address] Bilirubin.indirect [Mass/Vol] mg/dL Normal 0.0-0.4 [facility] Comment on above: Performed By: #### C BC, LACTIC, HS TROP, HEPATIC, BMP, LIPASE, BHOB, T4F, TSH3 #### [facility] [address] Globulin (S) [Mass/Vol] 3.8 g/dL Normal [facility] Comment on above: Performed By: #### C BC, LACTIC, HS TROP, HEPATIC, BMP, LIPASE, BHOB, T4F, TSH3 #### [facility] [address] Protein [Mass/Vol] 7.0 g/dL Normal 6.1-7.9 [facility] Comment on above: Performed By: #### C BC, LACTIC, HS TROP, HEPATIC, BMP, LIPASE, BHOB, T4F, TSH3 #### [facility] [address] Hepatitis B Surface Antibody on 08-24-2021 Hepatitis B Surface Antibody Non-Reactive Normal . [facility] Comment on above: Order Comment: Which is this, the Source or the Person with the Exposure?: SOURCE Source Medical Record: [id number] Exposed Result Comment: Non Reactive: Inconsistent with immunity, less than 10 mIU/mL Reactive: Consistent with immunity, greater than 9.9 mIU/mL Performed By: #### C BC, BMP #### [facility] [address] Hepatitis B Surface Antigeno n 08-24-2021 HBsAg Screen Negative Normal Negative [facility] Comment on above: Order Comment: Which is this, the Source or the Person with the Exposure?: SOURCE Source Medical Record: [id number] Exposed Result Comment: Perf ormed at: [facility] [place] [id number] [place] Be[place]: Spencer Mcdaniels PhD, Phone: [phone] Performed By: #### C BC, BMP #### [address] Eric 08-24-2021 L -- ---- Specimen: [id number] Received: 08/24/21 Status: JOSE Hampton Num: [id number] Spec Type: Surgical Subm Dr: Isael Castro MD Tissues: A Gallbladder (GALLBLADDER) Procedures: HE Stain, Gross/Micro L3 ---- Patient Age/Sex Location Account Attending Physician ---- Jeanmarie Garcia 71/F 4N [id number] Isael Castro MD ---- SPEC NUM: [id number] RECD: 08/24/21 STATUS: JOSE HAMPTON NUM: [id number] BASIA: 08/24/21- [facility] DR: Isael Castro MD ENTERED: 08/24/21 [facility] DR: LUCIAN TYPE: Surgical DEPT: S ORDERED: HE Stain, Gross/Micro L3 ORDERED: HE Stain, Gross/Micro L3 Pathological Diagnosis Gallbladder, cholecystectomy: - Chronic and focal acute cholecystitis with cholelithiasis Clinical Information Cholelithiasis Gross Description Received in 10% neutral buffered formalin, labeled with the patient's name, number and gallbladder is a 12.3 x 4 x 2.5 cm intact and distended gallbladder. The serosa is pink- purple, finely vascularized and wrinkled, while the adventitia is focally and finely roughened. The specimen is opened to reveal a giles, granular and flattened mucosa. There is an average wall thickness of 2 cm. Within the lumen is brown, granular bile admixed with black choleliths and fragments. These choleliths and fragments range from <0.1 cm to 0.9 cm in greatest dimension. No lesions or periductal lymph nodes are identified. Structural Test Engineer sections are submitted in one cassette labeled A1. (SM/JS) Microscopic Description One glass slide with H E stained material has been examined. The microscopic findings support the above pathologic diagnosis. [id number] ---- ---- Specimen: [id number] Received: 08/24/21 Status: JOSE Hampton Num: [id number] Spec Type: Surgical Subm Dr: Isael Castro MD Tissues: A Gallbladder (GALLBLADDER) Procedures: HE Stain, Gross/Micro L3 ---- Patient: GarciaJeanmarie M [id number] (Continued) ---- Signed (signature on file) Hemant Chávez MD 08/25/21 182 Normal [facility] Lipaseon 08-24-2021 Lipase [Catalytic activity/Vol] 27.0 U/L Normal 22-51 [facility] Comment on above: Result Comment: PERF ORMED BY: [place] [address] PATHOLOGIST ANIMAL SCIENTIST HEMANT CHÁVEZ M.D. Performed By: #### C BC, LACTIC, HS TROP, HEPATIC, BMP, LIPASE, BHOB, T4F, TSH3 #### [facility] [address] [place] [address] Basic Metabolic Panelon 08-07 Calcium [Mass/Vol] 8.4 mg/dL Normal 8.2-10.2 [facility] Comment on above: Performed By: #### C BC, BMP #### [facility] [address] [place] [address] Chloride [Moles/Vol] 104 mmol/L Normal 95-114 [facility] Comment on above: Performed By: #### C BC, BMP #### [address] CO2 [Moles/Vol] 24.8 mmol/L Normal 22.0-30.0 [facility] Comment on above: Performed By: #### C BC, BMP #### [facility] [address] [place] [address] Creatinine [Mass/Vol] 0.96 mg/dL Normal 0.44-1.03 [facility] Comment on above: Performed By: #### C BC, BMP #### [facility] [address] [place] [address] Creatinine Clr Calc Pharmacy 64.28 Normal [facility] Comment on above: Performed By: #### C BC, BMP #### [facility] [address] [place] [address] Estimated GFR ( Roseline > 60 Normal [facility] Comment on above: Result Comment: GFR estimated reference range: According to KDOQI guidelines, <60 ml/min/1.73m2 is sufficient to diagnose a patient with chronic kidney disease. Performed By: #### C BC, BMP #### [facility] [address] Estimated GFR (Non- Am 58 Normal [facility] Comment on above: Performed By: #### C BC, BMP #### [address] Glucose [Mass/Vol] 101 mg/dL High 70-100 [facility] Comment on above: Result Comment: [place] om Glucose Reference Range is dependent on time and content of last meal. Glucose of more than 200 mg/dL in a nonstressed, ambulatory subject supports the diagnosis of Diabetes Mellitus. ADA recommended reference range Performed By: #### C BC, BMP #### [address] Potassium [Moles/Vol] 3.5 mmol/L Normal 3.5-5.1 [facility] Comment on above: Performed By: #### C BC, BMP #### [address] Sodium [Moles/Vol] 137 mmol/L Normal 136-146 [facility] Comment on above: Performed By: #### C BC, BMP #### [address] Urea nitrogen [Mass/Vol] 10 mg/dL Normal 9-23 [facility] Comment on above: Performed By: #### C BC, BMP #### [address] COVID-19 Antigenon 2 COVID-19 Antigen Healthcare Worker?: N Reference Range: Negative Negative results, from patients with symptom onset beyond five days, should be treated as presumptive and confirmation with a molecular assay, if necessary, for patient management, may be performed. Negative results do not rule out COVID-19 and should not be used as the sole basis for treatment or patient management decisions, including infection control decisions. Negative results should be considered in the context of a patient's recent exposures, history and the presence of clinical signs and symptoms consistent with COVID-19. The [place] SARS Antigen JW does not differentiate between SARS-CoV and SARS-CoV-2. This test was developed and its performance characteristic determined by [employer] and validated at [facility]. This test has not been FDA cleared or approved. This test has been authorized by FDA under an Emergency Use Authorization (EUA). This test has been validated in accordance with the FDA's Guidance Document (Policy for Diagnostics Testing in Laboratories Certified to Perform High Complexity Testing under CLIA prior to Emergency Use Authorization for Coronavirus Disease-2019 during the Public Health Emergency) issued on July 10, 2019. This test is only authorized for the duration of time the declaration that circumstances exist justifying the authorization of the emergency use of in vitro diagnostic tests for detection of SARS-CoV-2 virus and/or diagnosis of COVID-19 infection under section 564(b)(1) of the Act, 21 U.S.C. 360bbb-3(b)(1), unless the authorization is terminated or revoked sooner. SARS-CoV+SARS-CoV-2 (COVID-19) Ag [Presence] in Respiratory specimen by Rapid immunoassay Negative for SARS Antigen by JW PERFORMED BY: [place] [address] PATHOLOGIST ANIMAL SCIENTIST HEMANT CHÁVEZ M.D. Normal [facility] Comment on above: Performed By: #### C , BMP #### [address] COVID-19 [facility] 08-23-2021 SARS-CoV-2 (COVID-19) RNA NAILA+probe Ql (Unsp spec) Negative Normal Negative [facility] Comment on above: Order Comment: Healt hcare Worker?: N Result Comment: Testing for SARS-CoV-2 by RT-PCR This test was developed and its performance characteristics determined by [employer] and validated at the [facility]. This test has not been FDA cleared or approved. This test has been authorized by FDA under an Emergency Use Authorization (EUA). This test has been validated in accordance with the FDA's Guidance Document (Policy for Diagnostics Testing in Laboratories Certified to Perform High Complexity Testing under CLIA prior to Emergency Use Authorization for Coronavirus Disease-2019 during the Public Health Emergency) issued on July 10, 2019. This test is only authorized for the duration of time the declaration that circumstances exist justifying the authorization of the emergency use of in vitro diagnostic tests for detection of SARS-CoV-2 virus and/or diagnosis of COVID-19 infection under section 564(b)(1) of the Act, 21 U.S.C. 360bbb-3(b)(1), unless the authorization is terminated or revoked sooner. PERFORMED BY: [place] [address] PATHOLOGIST ANIMAL SCIENTIST HEMANT CHÁVEZ M.D. Performed By: #### C BC, BMP #### [address] Complete Blood Count Auto Di ffon 08-23-2021 Basophils (Bld) [#/Vol] 0.0 10*3/uL Normal 0.0-0.2 [facility] Comment on above: Result Comment: PERF ORMED BY: [place] [address] PATHOLOGIST ANIMAL SCIENTIST HEMANT CHÁVEZ M.D. Performed By: #### C BC, BMP #### [address] Basophils/100 WBC (Bld) 0.4 % Normal . [facility] Comment on above: Performed By: #### C BC, BMP #### [address] Eosinophils (Bld) [#/Vol] 0.5 10*3/uL High 0.0-0.45 [facility] Comment on above: Performed By: #### C BC, BMP #### [address] Eosinophils/100 WBC (Bld) 5.4 % Normal . [facility] Comment on above: Performed By: #### C BC, BMP #### [facility] [address] Erythrocyte distribution width (RBC) [Ratio] 15.5 % High 11.9-15.3 [facility] Comment on above: Performed By: #### C BC, BMP #### [address] Hematocrit (Bld) [Volume fraction] 37.7 % Normal 34.0-46.4 [facility] Comment on above: Performed By: #### C BC, BMP #### [address] Hemoglobin (Bld) [Mass/Vol] 12.2 g/dL Normal 11.8-15.4 [facility] Comment on above: Performed By: #### C BC, BMP #### [address] Lymphocytes (Bld) [#/Vol] 2.0 10*3/uL Normal 1.00-4.8 [facility] Comment on above: Performed By: #### C BC, BMP #### [address] Lymphocytes/100 WBC (Bld) 21.9 % Normal . [facility] Comment on above: Performed By: #### C BC, BMP #### [address] MCH (RBC) [Entitic mass] 28.1 pg Normal 24.7-34.3 [facility] Comment on above: Performed By: #### C BC, BMP #### [address] MCV (RBC) [Entitic vol] 86.9 fL Normal 80-100 [facility] Comment on above: Performed By: #### C BC, BMP #### [address] Mean Corpuscular HGB Conc 32.3 g/dL Normal 32.0-35.0 [facility] Comment on above: Performed By: #### C BC, BMP #### [address] [place] [address] [place] Monocytes (Bld) [#/Vol] 0.6 10*3/uL Normal 0.0-0.8 [facility] Comment on above: Performed By: #### C BC, BMP #### [facility] [address] [place] [address] [place] Monocytes/100 WBC (Bld) 6.2 % Normal . [facility] Comment on above: Performed By: #### C BC, BMP #### [facility] [address] [place] [address] [place] Neutrophils (Bld) [#/Vol] 5.9 10*3/uL Normal 1.8-7.7 [facility] Comment on above: Performed By: #### C MARIA ELENA, BMP #### [address] Neutrophils/100 WBC (Bld) 66.1 % Normal . [facility] Comment on above: Performed By: #### C MARIA ELENA, BMP #### [facility] [address] [place] [address] [place] Nucleated RBC/100 WBC (Bld) [Ratio] 0.0 % Normal 0-0.5 [facility] Comment on above: Performed By: #### C MARIA ELENA, BMP #### [place] [address] [place] Platelet mean volume (Bld) [Entitic vol] 7.7 fL Normal 6.3-10.7 [facility] Comment on above: Performed By: #### C BC, BMP #### [facility] [address] [place] [address] [place] Platelets (Bld) [#/Vol] 261 10*3/uL Normal 150-450 [facility] Comment on above: Performed By: #### C BC, BMP #### [facility] [address] [place] [address] [place] RBC (Bld) [#/Vol] 4.33 10*6/uL Normal 3.60-5.00 [facility] Comment on above: Performed By: #### C BC, BMP #### [facility] [address] WBC (Bld) [#/Vol] 8.9 10*3/uL Normal 4.5-11.0 [facility] Comment on above: Performed By: #### C BC, BMP #### [facility] [address] [place] [address] [place] Dipstick and Microscopicon 0 08-23-2021 Appearance (U) Cloudy Critically abnormal Clear [facility] Comment on above: Order Comment: Name Collection Type:: Clean-Voided Midstream Performed By: #### C BC, LACTIC, HS TROP, HEPATIC, BMP, LIPASE, BHOB, T4F, TSH3 #### [place] [address] [place] Bacteria,Urine 2+ High None Seen [facility] Comment on above: Order Comment: Name Collection Type:: Clean-Voided Midstream Performed By: #### C BC, LACTIC, HS TROP, HEPATIC, BMP, LIPASE, BHOB, T4F, TSH3 #### [place] [address] [place] Bilirubin,Urine Negative Normal Negative [facility] Comment on above: Order Comment: Name Collection Type:: Clean-Voided Midstream Performed By: #### C BC, LACTIC, HS TROP, HEPATIC, BMP, LIPASE, BHOB, T4F, TSH3 #### [address] Color (U) Yellow Normal Yellow [facility] Comment on above: Order Comment: Name Collection Type:: Clean-Voided Midstream Performed By: #### C BC, LACTIC, HS TROP, HEPATIC, BMP, LIPASE, BHOB, T4F, TSH3 #### [place] [address] [place] Glucose Ql (U) Normal Normal Normal [facility] Comment on above: Order Comment: Name Collection Type:: Clean-Voided Midstream Performed By: #### C BC, LACTIC, HS TROP, HEPATIC, BMP, LIPASE, BHOB, T4F, TSH3 #### [place] [address] [place] Hyaline Casts,Urine 0-8 Normal 0-8 [facility] Comment on above: Order Comment: Name Collection Type:: Clean-Voided Midstream Result Comment: PERF ORMED BY: [place] [address] PATHOLOGIST ANIMAL SCIENTIST HEMANT CHÁVEZ M.D. Performed By: #### C BC, LACTIC, HS TROP, HEPATIC, BMP, LIPASE, BHOB, T4F, TSH3 #### [address] Ketones Ql (U) Negative Normal Negative [facility] Comment on above: Order Comment: Name Collection Type:: Clean-Voided Midstream Performed By: #### C BC, LACTIC, HS TROP, HEPATIC, BMP, LIPASE, BHOB, T4F, TSH3 #### [address] Leukocyte esterase Test strip Ql (U) 3+ High Negative [facility] Comment on above: Order Comment: Name Collection Type:: Clean-Voided Midstream Performed By: #### C BC, LACTIC, HS TROP, HEPATIC, BMP, LIPASE, BHOB, T4F, TSH3 #### [address] Nitrite,Urine Negative Normal Negative [facility] Comment on above: Order Comment: Name Collection Type:: Clean-Voided Midstream Performed By: #### C BC, LACTIC, HS TROP, HEPATIC, BMP, LIPASE, BHOB, T4F, TSH3 #### [address] Occult Blood,Urine Negative Normal Negative [facility] Comment on above: Order Comment: Name Collection Type:: Clean-Voided Midstream Result Comment: PERF ORMED BY: [place] [address] PATHOLOGIST ANIMAL SCIENTIST HEMANT CHÁVEZ M.D. Performed By: #### C BC, LACTIC, HS TROP, HEPATIC, BMP, LIPASE, BHOB, T4F, TSH3 #### [address] pH (U) 5.5 [pH] Normal 5.0-9.0 [facility] Comment on above: Order Comment: Name Collection Type:: Clean-Voided Midstream Performed By: #### C BC, LACTIC, HS TROP, HEPATIC, BMP, LIPASE, BHOB, T4F, TSH3 #### [address] Protein (U) [Mass/Vol] 100 mg/dL High Negative [facility] Comment on above: Order Comment: Name Collection Type:: Clean-Voided Midstream Performed By: #### C BC, LACTIC, HS TROP, HEPATIC, BMP, LIPASE, BHOB, T4F, TSH3 #### [address] RBC,Urine 1-2 Normal 0-4 [facility] Comment on above: Order Comment: Name Collection Type:: Clean-Voided Midstream Performed By: #### C BC, LACTIC, HS TROP, HEPATIC, BMP, LIPASE, BHOB, T4F, TSH3 #### [address] Specificy [place],Urine 1.021 Normal 1.001-1.030 [facility] Comment on above: Order Comment: Name Collection Type:: Clean-Voided Midstream Performed By: #### C BC, LACTIC, HS TROP, HEPATIC, BMP, LIPASE, BHOB, T4F, TSH3 #### [address] Squamous Epithelial Cell,Urine 20-30 High 0-2 [facility] Comment on above: Order Comment: Name Collection Type:: Clean-Voided Midstream Performed By: #### C BC, LACTIC, HS TROP, HEPATIC, BMP, LIPASE, BHOB, T4F, TSH3 #### [address] Urobilinogen,Urine Normal Normal Normal [facility] Comment on above: Order Comment: Name Collection Type:: Clean-Voided Midstream Performed By: #### C BC, LACTIC, HS TROP, HEPATIC, BMP, LIPASE, BHOB, T4F, TSH3 #### [facility] [address] [place] [id number] [facility] WBC,Urine 50-100 High 0-4 [facility] Comment on above: Order Comment: Name Collection Type:: Clean-Voided Midstream Performed By: #### C BC, LACTIC, HS TROP, HEPATIC, BMP, LIPASE, BHOB, T4F, TSH3 #### [facility] [address] [place] [address] ECG 12 lead ECGon 08-23-2021 ECG 12 lead ECG [facility] [place] [address] [place] [address] Electrocardiograph Report Signed Patient: Jeanmarie Garcia MR#: [id number] : 1950 Acct:[id number] Age/Sex: 71 / F ADM Date: 08/23/21 Loc: [place] Room: Type: [facility] Attending Dr: Isael Castro MD Ordering Provider: Isael Castro MD Date of Service: 08/23/21 ECG/ECG 12 lead ECG: Abdominal Pain Copies to: Test Reason : Blood Pressure : 135/070 mmHG Vent. Rate : 070 BPM Atrial Rate : 070 BPM P-R Int : 166 ms QRS Dur : 082 ms QT Int : 446 ms P-R-T Axes : 076 -15 052 degrees QTc Int : 481 ms Normal sinus rhythm Normal ECG When compared with ECG of 13-FEB-2017 09:13, No significant change was found Confirmed by SOY MARINELLI DO ([id number]) on 08/24/2021 3:49:47 PM Referred By: Electronically Signed By:SOY MARINELLI DO Transcribed By: MUS Signed By Soy Marinelli DO [id number] Normal [facility] Glucose Poct Glucometerson 0 08-23-2021 Commemt1 Glu2: Cleaned Meter Normal [facility] Comment on above: Result Comment: PERF ORMED BY: [place] [address] PATHOLOGIST ANIMAL SCIENTIST HEMANT CHÁVEZ M.D. Performed By: #### C BC, LACTIC, HS TROP, HEPATIC, BMP, LIPASE, BHOB, T4F, TSH3 #### [address] Glucose [Mass/Vol] 197 mg/dL Normal [facility] Comment on above: Result Comment: [place] om Glucose Reference Range is dependent on time and content of last meal. Glucose of more than 200 mg/dL in a nonstressed, ambulatory subject supports the diagnosis of Diabetes Mellitus. Performed By: #### C BC, LACTIC, HS TROP, HEPATIC, BMP, LIPASE, BHOB, T4F, TSH3 #### [address] Commemt1 Glu2: Cleaned Meter Normal [facility] Comment on above: Result Comment: PERF ORMED BY: [place] [address] PATHOLOGIST ANIMAL SCIENTIST HEMANT CHÁVEZ M.D. Performed By: #### C BC, LACTIC, HS TROP, HEPATIC, BMP, LIPASE, BHOB, T4F, TSH3 #### [address] Glucose [Mass/Vol] 145 mg/dL Normal [facility] Comment on above: Result Comment: [place] om Glucose Reference Range is dependent on time and content of last meal. Glucose of more than 200 mg/dL in a nonstressed, ambulatory subject supports the diagnosis of Diabetes Mellitus. Performed By: #### C BC, LACTIC, HS TROP, HEPATIC, BMP, LIPASE, BHOB, T4F, TSH3 #### [address] Hepatic Panelon 08-23-2021 Albumin [Mass/Vol] 3.1 g/dL Low 3.2-5.5 [facility] Comment on above: Performed By: #### C BC BMP #### [address] Albumin/Globulin [Mass ratio] 0.8 {ratio} [facility] Comment on above: Performed By: #### C BC, BMP #### [address] ALP [Catalytic activity/Vol] 91 U/L Normal 32-92 [facility] Comment on above: Performed By: #### C BC, BMP #### [facility] [address] ALT [Catalytic activity/Vol] 12 U/L Normal 10-60 [facility] Comment on above: Performed By: #### C BC, BMP #### [facility] [address] AST [Catalytic activity/Vol] 16 U/L Normal 10-42 [facility] Comment on above: Performed By: #### C BC, BMP #### [address] Bilirubin [Mass/Vol] 0.5 mg/dL Normal 0.3-1.2 [facility] Comment on above: Performed By: #### C BC, BMP #### [facility] [address] [place] [address] Bilirubin,Indirect Not performed Normal [facility] Comment on above: Performed By: #### C BC, BMP #### [facility] [address] [place] [address] Bilirubin.indirect [Mass/Vol] mg/dL Normal 0.0-0.4 [facility] Comment on above: Performed By: #### C BC, BMP #### [facility] [address] [place] [address] Globulin (S) [Mass/Vol] 3.8 g/dL Normal [facility] Comment on above: Performed By: #### C BC, BMP #### [address] Protein [Mass/Vol] 6.9 g/dL Normal 6.1-7.9 [facility] Comment on above: Performed By: #### C BC, BMP #### [address] Lipaseon 08-23-2021 Lipase [Catalytic activity/Vol] 31.0 U/L Normal 22-51 [facility] Comment on above: Result Comment: PERF ORMED BY: [place] [id number] PATHOLOGIST ANIMAL SCIENTIST HEMANT CHÁVEZ M.D. Performed By: #### C MARIA ELENA, BMP #### [place] [id number] [facility] Holley Ag Negativeon 08-24-19 Holley Ag Negative Negative Normal Negative [facility] Comment on above: Result Comment: This is a duplicate [place] SARS Antigen (JW) result to be used for statistical tracking purpose only. PERFORMED BY: [place] [address] PATHOLOGIST ANIMAL SCIENTIST HEMANT CHÁVEZ M.D. Performed By: #### C MARIA ELENA, BMP #### [place] [id number] [facility] US gall bladderon 08-23-2021 US gall bladder [facility] Main [place] [address] [place] [address] Ultrasound Report Signed Patient: Jeanmarie Garcia MR#: [id number] 757 : 1950 Acct:[id number] Age/Sex: 71 / F ADM Date: 08/23/21 Loc: ER Room: Type: [facility] ER Attending Dr: Ordering Provider: Soy Marinelli DO Date of Service: 08/23/21 US/US gall bladder: ABDOMINAL PAIN Copies to: Soy Marinelli DO LIMITED ABDOMINAL ULTRASOUND: CLINICAL HISTORY: Right upper quadrant abdominal pain, nausea, vomiting for 2 days. COMPARISON: Liver ultrasound 08/04/2008 TECHNIQUE: Grayscale and color Doppler images of the right upper quadrant organs were obtained. FINDINGS: Pancreas: Visualized portions appear unremarkable. Liver: Fatty infiltration. No focal mass or intrahepatic ductal dilatation. Hepatopedal flow is seen within the portal vein. Gallbladder: Tumefactive sludge is seen within the gallbladder lumen. No gallbladder wall thickening or pericholecystic fluid. Negative Justin sign. CBD: 5.1 mm. US/US gall bladder IMPRESSION: PRESUMED TUMEFACTIVE SLUDGE IS SEEN WITHIN THE GALLBLADDER LUMEN WITHOUT ULTRASOUND EVIDENCE OF ACUTE CHOLECYSTITIS. NO DEFINITE LIVER INVASION IS SEEN TO SUGGEST GALLBLADDER MASS. FATTY INFILTRATION OF THE LIVER.. Impression dictated by: Gerald Glasgow Jr., Juanjose08/23/2021 9:59 AM Dictation Location: [place] [address] Tech: Lolis Owen Transcribed By: JEANNIE 08/23/21958 Dictated By: Gerald Glasgow Jr, DO 08/23/21 0954 Signed By: 08/23/21958 [facility] Urine Cultureon 08-23-2021 Bacteria identified Cx Nom (U) >100,000 colonies/ml mixed bacterial skin contaminants 2 Days PERFORMED BY: [place] [address] PATHOLOGIST ANIMAL SCIENTIST HEMANT CHÁVEZ M.D. [facility] Comment on above: Performed By: #### C BC, LACTIC, HS TROP, HEPATIC, BMP, LIPASE, BHOB, T4F, TSH3 #### [address] Coding Summaryon 05-28-2019 Coding Summary CODING DATE: 05/28/2019 [facility] STATUS: Home PAYOR: Medicare ADMIT DX: REASON FOR VISIT DX: FINAL DX: PRINCIPAL: K43.9 Ventral hernia without obstruction or gangrene SECONDARY: PROCEDURES DOCTOR NAME DATE NOTE: The code number assigned matches the documented diagnosis and / or procedure in the patient's chart. However, the narrative phrase printed from the coding software may appear abbreviated, or result in slightly different terminology. Coded By: Mony Vines Date Saved: 05/28/2019 03:02 pm [facility] MAGR Intraoperative Recordon 05-15-2019 MAGR Intraoperative Record MAGR Intra-Op Record Summary Primary Physician: Magdi Mclaughlin MD Finalized Date/Time: 05/15/19 13:43:13 Pt. Name: JEANMARIE GARCIA/Sex: 1950 FEMALE Med Rec #: [id number] Physician: Magdi Mclaughlin MD Financial #: [id number] Pt. Type: D Room/Bed: / Admit/Disch: 05/13/19 05:53:00 - 05/13/19 12:10:00 Institution: Case Times MAGR Entry 1 Patient In Room Time 05/13/19 07:42:00 Out Room Time 05/13/19 09:07:00 Anesthesia Start Time 05/13/19 07:42:00 Stop Time 05/13/19 09:10:00 Surgery Start Time 05/13/19 08:03:00 Stop Time 05/13/19 09:01:00 Last Modified By: Anuja Farias RN 05/13/19 09:08:17 Case Attendance MAGR Entry 1 Entry 2 Entry 3 Case Attendee Magdi Mclaughlin MD, William MD Long, Barbara RN Role Performed Surgeon - Primary Anesthesiologist of Insurance Sales Executive Record Time In 05/13/19 07:42:00 05/13/19 07:42:00 05/13/19 07:42:00 Time Out 05/13/19 09:07:00 05/13/19 09:07:00 05/13/19 09:07:00 Procedure Hernia Repair Ventral Hernia Repair Ventral Hernia Repair Ventral Last Modified By: Anuja Farias RN, Barbara RN Long, Barbara RN 05/13/19 09:08:03 05/13/19 09:08:03 05/13/19 09:08:03 Entry 4 Entry 5 Case Attendee Irving BEZEL CUTTER, Dana Dai BEZEL CUTTER Role Performed Scrub Personnel Sash Repairer Time In 05/13/19 07:42:00 05/13/19 07:42:00 Time Out 05/13/19 09:07:00 05/13/19 09:07:00 Procedure Hernia Repair Ventral Hernia Repair Ventral Last Modified By: Anuja Farias RN, Barbara RN 05/13/19 09:08:03 05/13/19 09:08:03 Surgical Procedures MAGR Pre-Care Text: A.20 Verifies operative procedure, surgical site, and laterality Im.150 Develops individualized plan of care Entry 1 Procedure Hernia Repair Ventral Primary Procedure Yes Primary Surgeon Magdi Mclaughlin MD Surgeon Comment INCISIONAL VENTRAL HERNIA REPAIR WITH MESH Start 05/13/19 08:03:00 Stop 05/13/19 09:01:00 Anesthesia Type General Surgical Service General Wound Class Clean Technique Details Closure Technique Primary Entire procedure No was performed via laparoscope or robotic assistance Last Modified By: Anuja Farias RN 05/13/19 09:08:13 Post-Care Text: O.730 The patient's care is consistent with the individualized perioperative plan of care General Case Data MAGR Pre-Care Text: A.350.1 Classifies surgical wound Entry 1 Case Information OR MAGR OR 01 Case Level Level 4 Wound Class Clean Specialty General ASA Class 3 Diagnosis Preop Diagnosis VENTRAL HERNIA Postop Same As Preop Yes Postop Diagnosis VENTRAL HERNIA Blunt or No Is the procedure No penetrating injury considered occured prior to Emergent/Urgent? the start of the procedure: Last Modified By: Anuja Farias RN 05/13/19 08:42:28 Post-Care Text: O.760 Patient receives consistent and comparable care regardless of the setting Time Out MAGR Entry 1 Time out date/time 05/13/19 08:02:00 All team members Yes have introduced themselves by name and role Surgeon, Yes Surgeon reviews Yes anesthesia, nurse critical or confirm patient, unexpected steps, site, procedure operative duration, anticipated blood loss Anesthesia team Yes Nursing team Yes reviews any reviews sterility patient-specific (including concerns indicator results) and equipment issues/concerns Antibiotic Antibiotic Yes Administration Time 07:45 prophylaxis given within the last 60 minutes Last Modified By: Anuja Farias RN 05/13/19 08:10:21 Patient Positioning MAGR Pre-Care Text: A.280 Identifies baseline musculoskeletal status Im.40 Positions the patient Im.80 Applies safety devices Entry 1 Procedure Hernia Repair Ventral Body Position Supine Left Arm Position Extended on padded arm Right Arm Position Extended on padded arm board board Left Leg Position Extended Right Leg Position Extended Feet Uncrossed? Yes Press Points Checked Yes Positioning Device Arm Boards, Arm Strap, Outcome Met (O.80) Yes Pillow, Safety Strap Last Modified By: Anuja Farias RN 05/13/19 08:10:31 Post-Care Text: E.290 Evaluates musculoskeletal status O.80 Patient is free from signs and symptoms of injury related to positioning Skin Prep MAGR Pre-Care Text: A.30 Verifies allergies Im.270 Performs skin preparation Im.270.1 Implements protective measures to prevent skin and tissue injury due to chemical sources Entry 1 Skin Prep Syntegrity Prep Agents (Im.270) Chlorhexidine Gluconate Prep By Anuja Farias RN and Alcohol Prep Area (Im.270) Abdomen Skin Prep Agent Dry Yes Without Pooling Hair Removal Syntegrity Hair Removal Methods Clipper Hair Removal By Dana Lopez BEZEL CUTTER Outcome Met (O.100) Yes Last Modified By: Anuja Farias RN 05/13/19 08:11:09 Post-Care Text: E.10 Evaluates for signs and symptoms of physical injury to skin and tissue O.100 Patient is free from signs and symptoms of chemical injury Counts Verification MAGR Pre-Care Text: A.20 Verifies operative procedure, surgical site, and laterality A.20.2 Assesses the risk for unintended retained foreign body Im.20 Performs required counts Entry 1 Procedure Hernia Repair Ventral Counts Verification Initial Counts Items included in Instruments, Sponges, Initial Counts Manual the Initial Count Sharps Method Initial Counts Anuja Farias RN, Initial Count Time 05/13/19 07:20:00 Performed By Shaniqua Villatoro CST Counts Verification Final Counts Items Included in Sponges, Sharps Final Count Method Manual Final Count Final Count Status Correct Final Counts Anuja Farias RN, Performed By Irving LOOMIS, Shaniqua Final Count Time 05/13/19 08:46:00 Surgeon notified of Yes final counts status Outcome Met (O.20) Yes Last Modified By: Anuja Farias RN 05/13/19 08:46:12 Post-Care Text: E.50 Evaluates results of the surgical count O.20 Patient is free from unintended retained foreign objects Patient Care Devices MAGR Pre-Care Text: A.200 Assesses risk for normothermia regulation A.40 Verifies presence of prosthetics or corrective devices Im.280 Implements thermoregulation measures Im.60 Uses supplies and equipment within safe parameters Entry 1 Entry 2 Equipment Type FORCED WARM AIR UNIT mayte calf pumps Serial ?# [id number] Equipment Setting 43* factory set Last Modified By: Anuja Farias RN, Barbara RN 05/13/19 08:11:55 05/13/19 08:11:55 Post-Care Text: E.10 Evaluates signs and symptoms of physical injury to skin and tissue O.700 Patient is free from signs and symptoms of injury caused by extraneous objects Cautery MAGR Pre-Care Text: A.240 Assesses baseline skin condition A.40 Verifies presence of prosthetics or corrective devices Im.50 Implements protective measures to prevent injury due to electrical sources Entry 1 ESU Type Electrosurgical Unit Identification [id number] Number ESU Settings Syntegrity Cut Setting 30 Coag Setting 30 Grounding Pad Details Grounding Pad Yes Verified By Anuja Farias RN Needed? Grounding Pad Site Table Grounding Pad Grounding Pad Site Bilateral Detail Within Expiration Yes Date? Outcome Met (O.10) Yes Last Modified By: Anuja Farias RN 05/13/19 08:12:21 Post-Care Text: E.10 Evaluates for signs and symptoms of physical injury to skin and tissue O.10 Patient is free from signs and symptoms of injury related to thermal sources Medication Administration MAGR Pre-Care Text: A.210 Identifies physiological status Im.220 Administers prescribed medications Entry 1 Time Administered 05/13/19 08:59:00 Medication MARCAINE 0.5% PLAIN Route of Admin SubQ Dose 10 mL Volume 30 mL By Magdi Mclaughlin MD Outcome Met (O.130) Yes Last Modified By: Anjua Farias RN 05/13/19 08:59:18 Post-Care Text: E.20 Evaluates response to medications O.130 Patient receives appropriately administered medication(s) Implant Log MAGR Pre-Care Text: A.20 Verifies operative procedure, surgical site, and laterality Im.350 Records implants inserted during the operative or invasive procedure Entry 1 Procedure Hernia Repair Ventral Implant Action Implant Description BARD VENRALEX T HERNIA PATCH Implant Information Implant/Explant 05/13/19 08:18:00 Implanted/Explanted Magdi Mclaughlin MD Date/Time By: Size 3 CM / 3.2 Mainframe Systems Programmer BARD Lot Number [id number] Expiration Date 07/04/20 Implant Usage Data Site Abdomen Quantity 1 Box Press Operator Sterility Outcome Met (O.30) Yes Last Modified By: Anuja Farias RN 05/13/19 08:19:34 Post-Care Text: E.30 Evaluates verification process for correct patient, site, side and level surgery O.30 Patient's procedure is performed on the correct site, side, and level Dressing/Packing MAGR Pre-Care Text: A.350 Assesses susceptibility for infection Im.290 Administer care to wound sites Entry 1 Skin Prep Agent Yes Site Abdomen Removed Prior to Dressing? Dressing Item Details Tape (Im.290) Wound Closure Strip, Silk Outcome Met Yes Last Modified By: Anuja Farias RN 05/13/19 08:46:45 Post-Care Text: E.200 Evaluates progress of wound healing O.200 Patient's wound perfusion is consistent with or improved from baseline levels Counts Verif Addtnl MAGR Pre-Care Text: A.20 Verifies operative procedure, surgical site, and laterality A.20.2 Assesses the risk for unintended retained foreign body Im.20 Performs required counts Entry 1 Procedure Hernia Repair Ventral Count Type: 1st Count Items Counted Instruments, Sharps, Count Method: Manual Sponges Personnel Anuja Farias RN, Date and Time 05/13/19 08:37:00 Performing Count: Shaniqua Villatoro CST Count Results: Correct Surgeon notified? Yes Last Modified By: Anuja Farias RN 05/13/19 08:37:36 Post-Care Text: E.50 Evaluates results of the surgical count O.20 Patient is free from unintended retained foreign objects Departure from OR MAGR Entry 1 Present on Depart Oxygen Via Stretcher Post-op Destination PACU Skin DFO Condition Dry Description Condition Warm Description Condition Intact Description Report Given To Yolanda Robbins RN Airway Maintenance Patient Status Stable Oxygen in Use? Yes Flow Rate 15 L/min Last Modified By: Anuja Farias RN 05/13/19 08:29:40 Case Comments Finalized By: Anuja Farias RN Document Signatures Signed By: Anuja Farias RN 05/13/19 09:08 Anuja Farias RN 05/15/19 13:43 Unfinalized History Date/Time Username Reason for Unfinalizing Freetext Reason for Unfinalizing 05/15/19 13:42 MHBLONG Modify Pick List Normal [facility] Coding Summaryon 05-14-2019 Coding Summary CODING DATE: 05/14/2019 [facility] STATUS: Home PAYOR: Medicare MC APC DESCRIPTION 5341 Abdominal/Peritoneal/B iliary and Related Procedures ADMIT DX: REASON FOR VISIT DX: K43.9 Ventral hernia without obstruction or gangrene FINAL DX: PRINCIPAL: K43.9 Ventral hernia without obstruction or gangrene SECONDARY: E11.9 Type 2 diabetes mellitus without complications 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 However, the narrative phrase printed from the coding software may appear abbreviated, or result in slightly different terminology. Coded By: Sarai Lynn Date Saved: 05/14/2019 02:01 pm [facility] Consent Formson 05-14-2019 Consent Forms [id number] 20 [id number]#[address] [place] [address] Medication Managementon Medication Management [id number]#1.[address] [place] [address] Outside Recordson 05-14-2019 Outside Records [id number] 20 [id number]#1.[address] [place] [address] Provider Orderson 05-14-2019 Provider Orders [id number] 20 [id number]#1.[address] [place] [address] Telemetry Stripson 0 Telemetry Strips [id number] 20 [id number]#1.[address] [place] [address] Anesthesia Noteon 05-13-2019 Anesthesia Note Patient: JEANMARIE GARCIA Age: 68 years Sex: FEMALE : 1950 Associated Diagnoses: None Author: Kevin Khoury MD Postoperative Information Anesthetic utilized: General. Assessment Anesthetic outcome No anesthetic complications noted. Plan Transfer/ Discharge: Patient can be discharged from PACU when criteria met. Condition good. [Electronically Signed on: 05/13/2019 09:57 EST] Kevin Khoury MD [Verified on: 05/13/2019 09:57 EST] Kevin Khoury MD [facility] Anesthesia Note Patient: JEANMARIE GARCIA Age: 68 years Sex: FEMALE : 1950 Associated Diagnoses: None Author: Kevin Khoury MD Preoperative Information Anesthesia history: Family history. Patient history: No prior anesthesia problems. Review of Systems Constitutional: Negative. Cardiovascular: No Chest Pain. No SOB. Health Status Allergies: Allergic Reactions (All) No Known Medication Allergies Current medications: Home Medications (19) Active acetaminophen 325 mg oral capsule 650 mg = 2 cap(s), PRN, PO, q6hr aspirin 81 mg oral tablet 81 mg = 1 tab(s), PO, Daily atorvastatin 10 mg oral tablet 10 mg = 1 tab(s), PO, qPM benztropine 0.5 mg oral tablet 0.5 mg = 1 tab(s), PO, BID cepecol 1 lozenge(s), PRN, PO Coreg 3.125 mg oral tablet 3.125 mg = 1 tab(s), PO, BID glimepiride 2 mg oral tablet 2 mg = 1 tab(s), PO, Daily GuaiFENesin 100mg/5mL oral liquid 5 mL, PRN, PO, q4hr Lantus Solostar Pen 100 units/mL subcutaneous solution 10 unit(s), SubQ, Once a day (at bedtime) levothyroxine 0.125 mg oral tablet , PO, Daily loperamide 2 mg oral capsule 2 mg = 1 cap(s), PRN, PO, q4hr losartan 25 mg oral tablet 25 mg = 1 tab(s), PO, Daily metFORMIN 500 mg oral tablet 500 mg = 1 tab(s), PO, BIDWM Spiriva 18 mcg inhalation capsule 18 mcg = 1 cap(s), INH, HS Tessalon Perles 100 mg oral capsule 200 mg = 2 cap(s), PO, HS Tessalon Perles 100 mg oral capsule 2 tab(s), PRN, PO, q6hr venlafaxine 150 mg oral capsule, extended release 150 mg = 1 cap(s), PO, Daily Ventolin HFA 90 mcg/inh inhalation aerosol 1 puff(s), PRN, INH, q4hr Vitamin D3 1000 intl units oral capsule 1,000 International_Unit = 1 cap(s), PO, Daily Problem list (past medical history): All Problems COPD (chronic obstructive pulmonary disease) / SNOMED CT 74543838 / Confirmed Development delay / SNOMED CT 373549599 / Confirmed Diabetes / SNOMED CT 951046345 / Confirmed GERD (gastroesophageal reflux disease) / SNOMED CT 575438044 / Confirmed Hyponatremia / SNOMED CT 947054465 / Confirmed Hypothyroidism / SNOMED CT 32292059 / Confirmed Schizophrenia / SNOMED CT 95337004 / Confirmed Speech problem / SNOMED CT 987817574 / Confirmed Resolved: Depression / SNOMED CT 41514259 Histories Family History: History is unknown. Procedure history: Stomach ([id number]). Comments: 11/19/2018 12:55 Marshal Hoyos RN pt unable to state what surgery she had Social History Electronic Cigarette/Vaping Assessment Electronic Cigarette Use: Never. Alcohol Assessment Use: Past. Tobacco Assessment: High Risk 4 or less cigarettes(less than 1/4 pack)/day in last 30 days Tobacco Use:. pt states a pack last for about 3 days per day. Substance Abuse Assessment Substance use: Never. . Social & Psychosocial Habits Alcohol 11/19/2018 Alcohol Use: Past Substance Abuse 11/19/2018 Substance use: Never Tobacco 05/06/2016 Risk Assessment: High Risk 05/05/2019 Smoking tobacco use: 4 or less cigarettes(less Number used per day: pt states a pack last for about 3 days Electronic Cigarette/Vaping 05/05/2019 Electronic Cigarette Use: Never . Physical Examination General: Alert and oriented. Airway: Mallampati classification: IV (hard palate only). Temporomandibular joint mobility: Good. Mouth: Tongue ( Macroglossia ), Dentures ( Upper dentures, Lower dentures ). Respiratory: Lungs are clear to auscultation, Clear anteriorly, but diminished. Cardiovascular: Regular rhythm. Neurologic: Alert, Oriented. Review / Management Laboratory Results Plan [place] [employer] Anesthesiologists#(ASA ) physical status classification: Class III. Anesthetic Preoperative Plan Anesthesia: General. . Anesthetic plan, risks, benefits, and alternatives discussed with the patient and/or family. Patient verbalized understanding. Informed consent was given. Patient is a very poor/difficult historian. Claims a flu/pneumonia but cannot give any more history. Non productive cough, chronic for her. Continues smoking. No fever. Desires to proceed. Informed consent obtained. . Anesthetic technique: General anesthesia. [Electronically Signed on: 05/13/2019 08:13 EST] Kevin Khoury MD [Verified on: 05/13/2019 08:13 EST] Kevin Khoury MD [facility] History and Physicalon 05-13 History and Physical [id number] [facility] Inpatient Patient Summaryon 05-13-2019 Inpatient [place] [address] Patient Discharge Instructions Name: JEANMARIE GARCIA : 1950 Patient [address]: [address] [place] [address] Primary Care Provider: Name: GERALD FUENTES After you are discharged if you find you have any questions, please, call [phone] ext [phone] to speak to a nurse. Discharge Diagnosis: Ventral incisional hernia Prescription Information: If you have been given a prescription for narcotics, seek immediate medical attention if you have any difficulty breathing or any sudden status changes such as confusion and sleepiness. If you or anyone you know is experiencing suicidal thoughts, mental health, alcohol and/or drug addiction problems; contact the [facility] 30/10 Crisis Hotline -Text 4HSSL xg 573438. If you received any narcotics, sedation, or any other medication that causes drowsiness for the next 24 hours, unless otherwise directed: ? Do not drive a car. ? Do not operate machinery such as power tools, lawn mowers, drills, sewing machines, or stoves ? Avoid alcoholic beverages and drugs for allergies, nerves, or sleep ? Do not make important personal or business decisions or sign any legal documents [facility] would like to thank you for allowing us to assist you with your healthcare needs. The following includes patient education materials and information regarding your injury/illness. JEANMARIE GARCIA has been given the following list of follow-up instructions, prescriptions, and patient education materials: Follow-up Instructions With: Address: When: Magdi Mclaughlin [address] [place] [address], [place] [address] Business (1) In 2 weeks 05/27/2019 With: Address: When: GERALD FUENTES [address] [place] [address], [place] [address] Business (1) Medications During the course of your visit, your medication list was updated with the most current information. The details of those changes are reflected below: New Medications Printed Prescriptions acetaminophen-hydrocod one (Golden 5 mg-325 mg oral tablet) 1 tab(s) Oral Every 6 hours as needed for pain. Refills: 0. Medications to Continue That Have Not Changed Other Medications acetaminophen (acetaminophen 325 mg oral capsule) 2 cap(s) Oral Every 6 hours as needed as needed for pain. albuterol (Ventolin HFA 90 mcg/inh inhalation aerosol) 1 puff(s) Inhalation Every 4 hours as needed for wheezing. aspirin (aspirin 81 mg oral tablet) 1 tab(s) Oral every day. atorvastatin (atorvastatin 10 mg oral tablet) 1 tab(s) Oral once a day (in the evening). benzonatate (Tessalon Perles 100 mg oral capsule) 2 tab(s) Oral Every 6 hours as needed cough. benzonatate (Tessalon Perles 100 mg oral capsule) 2 cap(s) Oral At bedtime. benztropine (benztropine 0.5 mg oral tablet) 1 tab(s) Oral 2 times a day. carvedilol (Coreg 3.125 mg oral tablet) 1 tab(s) Oral 2 times a day. cholecalciferol (Vitamin D3 1000 intl units oral capsule) 1 cap(s) Oral every day. glimepiride (glimepiride 2 mg oral tablet) 1 tab(s) Oral every day. Refills: 1. guaiFENesin (GuaiFENesin 100mg/5mL oral liquid) 5 Milliliter Oral Every 4 hours as needed as needed for cough. insulin glargine (Lantus Solostar Pen 100 units/mL subcutaneous solution) 10 unit(s) Subcutaneous once a day (at bedtime). Refills: 0. levothyroxine (levothyroxine 0.125 mg oral tablet) Oral every day. loperamide (loperamide 2 mg oral capsule) 1 cap(s) Oral Every 4 hours as needed for loose stool. losartan (losartan 25 mg oral tablet) 1 tab(s) Oral every day. metFORMIN (metFORMIN 500 mg oral tablet) 1 tab(s) Oral twice a day (with meals). MAGRU. Refills: 1. Template Non-Formulary (cepecol) 1 lozenge(s) Oral as needed cough. tiotropium (Spiriva 18 mcg inhalation capsule) 1 cap(s) Inhalation At bedtime. venlafaxine (venlafaxine 150 mg oral capsule, extended release) 1 cap(s) Oral every day. It is important to always keep an active list of medications available so that you can share with other providers and manage your medications appropriately. As an additional courtesy, we are also providing you with your final active medications list that you can keep with you. acetaminophen (acetaminophen 325 mg oral capsule) 2 cap(s) Oral Every 6 hours as needed as needed for pain. acetaminophen-hydrocod one (Golden 5 mg-325 mg oral tablet) 1 tab(s) Oral Every 6 hours as needed for pain. Refills: 0. albuterol (Ventolin HFA 90 mcg/inh inhalation aerosol) 1 puff(s) Inhalation Every 4 hours as needed for wheezing. aspirin (aspirin 81 mg oral tablet) 1 tab(s) Oral every day. atorvastatin (atorvastatin 10 mg oral tablet) 1 tab(s) Oral once a day (in the evening). benzonatate (Tessalon Perles 100 mg oral capsule) 2 tab(s) Oral Every 6 hours as needed cough. benzonatate (Tessalon Perles 100 mg oral capsule) 2 cap(s) Oral At bedtime. benztropine (benztropine 0.5 mg oral tablet) 1 tab(s) Oral 2 times a day. carvedilol (Coreg 3.125 mg oral tablet) 1 tab(s) Oral 2 times a day. cholecalciferol (Vitamin D3 1000 intl units oral capsule) 1 cap(s) Oral every day. glimepiride (glimepiride 2 mg oral tablet) 1 tab(s) Oral every day. Refills: 1. guaiFENesin (GuaiFENesin 100mg/5mL oral liquid) 5 Milliliter Oral Every 4 hours as needed as needed for cough. insulin glargine (Lantus Solostar Pen 100 units/mL subcutaneous solution) 10 unit(s) Subcutaneous once a day (at bedtime). Refills: 0. levothyroxine (levothyroxine 0.125 mg oral tablet) Oral every day. loperamide (loperamide 2 mg oral capsule) 1 cap(s) Oral Every 4 hours as needed for loose stool. losartan (losartan 25 mg oral tablet) 1 tab(s) Oral every day. metFORMIN (metFORMIN 500 mg oral tablet) 1 tab(s) Oral twice a day (with meals). MAGRU. Refills: 1. Template Non-Formulary (cepecol) 1 lozenge(s) Oral as needed cough. tiotropium (Spiriva 18 mcg inhalation capsule) 1 cap(s) Inhalation At bedtime. venlafaxine (venlafaxine 150 mg oral capsule, extended release) 1 cap(s) Oral every day. Take only the medications listed above. Contact your doctor prior to taking any medications not on this list. Diet & Activity Patient Activity Level: Patient Diet: Regular Patient Activity Restrictions: Comment: Patient education materials, if any, will display below Ventral Hernia A ventral hernia is a bulge of tissue from inside the abdomen that pushes through a weak area of the muscles that form the front wall of the abdomen. The tissues inside the abdomen are inside a sac (peritoneum). These tissues include the small intestine, large intestine, and the fatty tissue that covers the intestines (omentum). Sometimes, the bulge that forms a hernia contains intestines. Other hernias contain only fat. Ventral hernias do not go away without surgical treatment. There are several types of ventral hernias. You may have: ? A hernia at an incision site from previous abdominal surgery (incisional hernia). ? A hernia just above the belly button (epigastric hernia), or at the belly button (umbilical hernia). These types of hernias can develop from heavy lifting or straining. ? A hernia that comes and goes (reducible hernia). It may be visible only when you lift or strain. This type of hernia can be pushed back into the abdomen (reduced). ? A hernia that traps abdominal tissue inside the hernia (incarcerated hernia). This type of hernia does not reduce. ? A hernia that cuts off blood flow to the tissues inside the hernia (strangulated hernia). The tissues can start to if this happens. This is a very painful bulge that cannot be reduced. A strangulated hernia is a medical emergency. What are the causes? This condition is caused by abdominal tissue putting pressure on an area of weakness in the abdominal muscles. What increases the risk? The following factors may make you more likely to develop this condition: ? Being male. ? Being 60 or older. ? Being overweight or obese. ? Having had previous abdominal surgery, especially if there was an infection after surgery. ? Having had an injury to the abdominal wall. ? Having had several pregnancies. ? Having a buildup of fluid inside the abdomen (ascites). What are the signs or symptoms? The only symptom of a ventral hernia may be a painless bulge in the abdomen. A reducible hernia may be visible only when you strain, cough, or lift. Other symptoms may include: ? Dull pain. ? A feeling of pressure. Signs and symptoms of a strangulated hernia may include: ? Increasing pain. ? Nausea and vomiting. ? Pain when pressing on the hernia. ? The skin over the hernia turning red or purple. ? Constipation. ? Blood in the stool (feces). How is this diagnosed? This condition may be diagnosed based on: ? Your symptoms. ? Your medical history. ? A physical exam. You may be asked to cough or strain while standing. These actions increase the pressure inside your abdomen and force the hernia through the opening in your muscles. Your health care provider may try to reduce the hernia by pressing on it. ? Imaging studies, such as an ultrasound or CT scan. How is this treated? This condition is treated with surgery. If you have a strangulated hernia, surgery is done as soon as possible. If your hernia is small and not incarcerated, you may be asked to lose some weight before surgery. Follow these instructions at home: ? Remove the dressing tomorrow. ? It is OK to get the incision wet with soap and water tomorrow. ? Do not lift anything that is heavier than 10 lb (4.5 kg). ? Eat light for the next day or two. ? Take iixc-ixr-piunddx and prescription medicines only as told by your health care provider. ? Keep all follow-up visits as told by your health care provider. This is important. Next visit should be in 2 weeks. Contact a health care provider if: ? You have a fever greater than 101 degrees. ? Your incision becomes increasingly red and painful. Get help right away if: ? You have pain along with any of the following: ? Changes in skin color in the area of the hernia. ? Nausea. ? Vomiting. ? Fever. Summary ? A ventral hernia is a bulge of tissue from inside the abdomen that pushes through a weak area of the muscles that form the front wall of the abdomen. ? Do not lift anything that is heavier than 10 lb (4.5 kg), and follow activity instructions from your health care provider. This information is not intended to replace advice given to you by your health care provider. Make sure you discuss any questions you have with your health care provider. Document Released: 03/12/2013 Document Revised: 05/08/2018 Document Reviewed: 10/15/2017 [employer] Interactive Patient Education ? 2019 [employer]upp. Viruses or Bacteria What?s got you sick? Antibiotics only treat bacterial infections. Viral illnesses cannot be treated with antibiotics. When an antibiotic is not prescribed, ask your healthcare professional for tips on how to relieve symptoms and feel better. Usual Cause Illness Viruses Bacteria Antibiotic Needed Cold/Runny Nose NO Bronchitis/Chest Cold (in otherwise healthy children and adults) NO Whooping Cough Yes Flu NO Strep Throat Yes Sore Throat (except strep) NO Fluid in the middle ear (otitis media with effusion) NO Urinary Tract Infection Yes Antibiotics Aren?t Always the Answer www.cdc.gov/getsmart GET SMART Know When Antibiotics Work U.S. Department of Health and Human Services Centers for Disease Control and Prevention December 2013 [facility] PACU Record MAGR PACU Record Summary Primary Physician: Magdi Mclaughlin MD Finalized Date/Time: 05/13/19 10:21:28 Pt. Name: JEANMARIE GARCIA KARMA WernerO.B./Sex: 1950 FEMALE Med Rec #: [id number] Physician: Magdi Mclaughlin MD Financial #: [id number] Pt. Type: D Room/Bed: / Admit/Disch: 05/13/19 05:53:00 - Institution: PACU Case Times MAGR Entry 1 In PACU I 05/13/19 09:10:00 Discharge from PACU 05/13/19 09:49:00 I Last Modified By: Yolanda Robbins RN 05/13/19 10:21:25 Finalized By: Yolanda Robbins RN Document Signatures Signed By: Yolanda Robbins RN 05/13/19 10:21 [facility] MAGR Postoperative Recordon 05-13-2019 MAGR Postoperative Record MAGR Phase II Record Summary Primary Physician: Magdi Mclaughlin MD Finalized Date/Time: 05/13/19 12:19:23 Pt. Name: JEANMARIE GARCIA /Sex: 1950 FEMALE Med Rec #: [id number] Physician: Magdi Mclaughlin MD Financial #: [id number] Pt. Type: D Room/Bed: / Admit/Disch: 05/13/19 05:53:00 - Institution: Phase II Case Times MAGR Pre-Care Text: Patient is free from s/s of injury. Patient remains free from compromised physical state related to surgery or anesthesia. Patient comfort maintained. Patient/family verbalize understanding of discharge instructions. Entry 1 In PACU II 05/13/19 09:50:00 Discharge from PACU 05/13/19 12:10:00 II Last Modified By: Denae Najera RN 05/13/19 12:19:21 Post-Care Text: The patient remains free from s/s of injury. Patient's vital signs stable, circulation maintained, return to preop mental and physical status, opsite/dressing intact, minimal or absent nausea and vomiting, tolerates po intake. Patient verbalizes adequate pain control. Patient/family express understanding of discharge instructions. Finalized By: Denae Najera RN Document Signatures Signed By: Denae Najera RN 05/13/19 12:19 [facility] MAGR Preoperative Recordon 0 05-13-2019 MAGR Preoperative Record MAGR Pre-Op Record Summary Primary Physician: Magdi Mclaughlin MD Finalized Date/Time: 05/13/19 08:06:19 Pt. Name: JEANMARIE GARCIA /Sex: 1950 FEMALE Med Rec #: [id number] Physician: Magdi Mclaughlin MD Financial #: [id number] Pt. Type: D Room/Bed: / Admit/Disch: 05/13/19 05:53:00 - Institution: Pre-Op Case Times MAGR Pre-Care Text: Patient will be optimally prepared for surgery. Patient is free from s/s of injury. Provide information to patient/family related to plan of care. Verify patient allergies. Confirm identity and verify consent before the operative or invasive procedure. Entry 1 Patient Arrival Time 05/13/19 06:03:00 Preop Departure 05/13/19 07:40:00 Last Modified By: Anuja Farias RN 05/13/19 08:06:17 Post-Care Text: Patient is prepared mentally and physically and is ready for surgery. The patient remains free from s/s of injury. Patient/family express understanding of plan of care and participate in decisions affecting his or her perioperrative plan of care. Allergies documented appropriately. Patient identifiers and consent correct. General Comments: Denies chest pain, shortness of breath or illnessess. Denies pacemaker/defib. Denies sleep apnea. Finalized By: Anuja Farias RN Document Signatures Signed By: Anuja Farias RN 05/13/19 08:06 [facility] Operative Report - Surgeon/P rico 05-13-2019 Operative Report - Surgeon/Physician DATE OF PROCEDURE: 05/13/2019 SURGEON: Magdi Mclaughlin MD ANESTHESIA: General. PREOPERATIVE DIAGNOSIS: Ventral hernia. POSTOPERATIVE DIAGNOSIS: Ventral hernia. PROCEDURE: Open ventral hernia repair with mesh. INDICATIONS: Jeanmarie is a 68-year-old lady who has developed a ventral hernia in the epigastrium just to the left of the midline. This is an area of what appears to be an old ostomy scar. She has been cleared from a pulmonary and cardiac standpoint. She comes in today for repair. On examination, she does have a hernia that is very prominent when she strains. It is difficult to determine the exact fascial defect. I suspect somewhere in the 4-5 cm range. FINDINGS: The fascial defect did measure 3 x 4 cm. A large Ventralex mesh was used in the repair. PROCEDURE: The patient was prepped and draped in the supine position on the operating table once adequate general anesthesia had been obtained. An incision was created through the transverse scar just to the left of the midline in the epigastrium. Dissection was carried down through the subcutaneous tissues using the cautery. We quickly came down on the hernia sac. It was dissected circumferentially down to the level of the fascia. The pre-peritoneal space was then developed. We were able to get a nice space under the fascia that measured approximately 8-10 cm in diameter. The fascial defect measured 3 cm in the longitudinal direction and 4 cm in the transverse direction. A large Ventralex mesh was then placed deep to the fascia in the pre-peritoneal space. The mesh was tacked circumferentially using interrupted Vicryl sutures. The ribbons were then cut and folded back and tacked down to the anterior fascia. The fascia was closed transversely using interrupted hiicih-nj-zifvd 0 Vicryl sutures. The sutures included the fascia and the mesh ribbons. This seemed to adequately repair the defect. It should be noted that the peritoneal cavity was not entered. The subcutaneous tissues were re-approximated using interrupted Vicryl suture. The skin was closed using a running 4-0 Monocryl subcuticular suture. Dermabond was placed. The area was infiltrated with Marcaine solution. A dressing was placed. She tolerated the procedure well. It is anticipated that she will be discharged today. Magdi Mclaughlin M.D. JOB #: [id number] bk CC: Gerald Fuentes D.O. [Electronically Signed on: 05/13/2019 11:19 EST] Magdi Mclaughlin MD [Verified on: 05/13/2019 11:19 EST] Magdi Mclaughlin MD [Transcribed on: 05/13/2019 10:09 EST] [facility] Patient Handouton 05-13-2019 Patient Handout Gastroenterology Ventral Hernia A ventral hernia is a bulge of tissue from inside the abdomen that pushes through a weak area of the muscles that form the front wall of the abdomen. The tissues inside the abdomen are inside a sac (peritoneum). These tissues include the small intestine, large intestine, and the fatty tissue that covers the intestines (omentum). Sometimes, the bulge that forms a hernia contains intestines. Other hernias contain only fat. Ventral hernias do not go away without surgical treatment. There are several types of ventral hernias. You may have: ? A hernia at an incision site from previous abdominal surgery (incisional hernia). ? A hernia just above the belly button (epigastric hernia), or at the belly button (umbilical hernia). These types of hernias can develop from heavy lifting or straining. ? A hernia that comes and goes (reducible hernia). It may be visible only when you lift or strain. This type of hernia can be pushed back into the abdomen (reduced). ? A hernia that traps abdominal tissue inside the hernia (incarcerated hernia). This type of hernia does not reduce. ? A hernia that cuts off blood flow to the tissues inside the hernia (strangulated hernia). The tissues can start to if this happens. This is a very painful bulge that cannot be reduced. A strangulated hernia is a medical emergency. What are the causes? This condition is caused by abdominal tissue putting pressure on an area of weakness in the abdominal muscles. What increases the risk? The following factors may make you more likely to develop this condition: ? Being male. ? Being 60 or older. ? Being overweight or obese. ? Having had previous abdominal surgery, especially if there was an infection after surgery. ? Having had an injury to the abdominal wall. ? Having had several pregnancies. ? Having a buildup of fluid inside the abdomen (ascites). What are the signs or symptoms? The only symptom of a ventral hernia may be a painless bulge in the abdomen. A reducible hernia may be visible only when you strain, cough, or lift. Other symptoms may include: ? Dull pain. ? A feeling of pressure. Signs and symptoms of a strangulated hernia may include: ? Increasing pain. ? Nausea and vomiting. ? Pain when pressing on the hernia. ? The skin over the hernia turning red or purple. ? Constipation. ? Blood in the stool (feces). How is this diagnosed? This condition may be diagnosed based on: ? Your symptoms. ? Your medical history. ? A physical exam. You may be asked to cough or strain while standing. These actions increase the pressure inside your abdomen and force the hernia through the opening in your muscles. Your health care provider may try to reduce the hernia by pressing on it. ? Imaging studies, such as an ultrasound or CT scan. How is this treated? This condition is treated with surgery. If you have a strangulated hernia, surgery is done as soon as possible. If your hernia is small and not incarcerated, you may be asked to lose some weight before surgery. Follow these instructions at home: ? Remove the dressing tomorrow. ? It is OK to get the incision wet with soap and water tomorrow. ? Do not lift anything that is heavier than 10 lb (4.5 kg). ? Eat light for the next day or two. ? Take ctwf-nxt-utkejza and prescription medicines only as told by your health care provider. ? Keep all follow-up visits as told by your health care provider. This is important. Next visit should be in 2 weeks. Contact a health care provider if: ? You have a fever greater than 101 degrees. ? Your incision becomes increasingly red and painful. Get help right away if: ? You have pain along with any of the following: ? Changes in skin color in the area of the hernia. ? Nausea. ? Vomiting. ? Fever. Summary ? A ventral hernia is a bulge of tissue from inside the abdomen that pushes through a weak area of the muscles that form the front wall of the abdomen. ? Do not lift anything that is heavier than 10 lb (4.5 kg), and follow activity instructions from your health care provider. This information is not intended to replace advice given to you by your health care provider. Make sure you discuss any questions you have with your health care provider. Document Released: 03/12/2013 Document Revised: 05/08/2018 Document Reviewed: 10/15/2017 [employer] Interactive Patient Education ? 2018 [employer] [facility] Progress Note - Nurseon Progress Note - Nurse Pre-op call done, talked with caregiver @ [facility]. Instructed to have pt. here @ 05-13-2019, NPO after midnight-verbalized understanding. [Electronically Signed on: 05/12/2019 09:47 EST] Denae Najera RN [Verified on: 05/12/2019 09:47 EST] Denae Najera RN [facility] Coding Summaryon 05-08-2019 Coding Summary CODING DATE: 05/08/2019 [facility] STATUS: Home PAYOR: Medicare ADMIT DX: REASON FOR VISIT DX: K43.9 Ventral hernia without obstruction or gangrene FINAL DX: PRINCIPAL: K43.9 Ventral hernia without obstruction or gangrene SECONDARY: PYMT PROC APC STAT DESCRIPTION DOCTOR NAME DATE NOTE: The code number assigned matches the documented diagnosis and / or procedure in the patient's chart. However, the narrative phrase printed from the coding software may appear abbreviated, or result in slightly different terminology. Coded By: Deanna Whitman Date Saved: 05/08/2019 09:15 am [facility] Progress Note - Nurseon 04-11 Progress Note - Nurse Chart reviewed by Dr. Palacios and no new orders received. [Electronically Signed on: 05/08/2019 15:51 EST] Yolanda Soto RN [Verified on: 05/08/2019 15:51 EST] Yolanda Soto RN [facility] .Auto Diff 1on 05-07-2019 Auto Traverse % 5 % Normal 04-20 [facility] Comment on above: Performed By: #### 1 [id number], [id number] #### [facility] (DEFAULT) [address] [place] [address] Baso Abs# 0.0 x10 Normal 0.0-0.2 [facility] Comment on above: Performed By: #### 1 [id number], [id number], [id number] #### [facility] (DEFAULT) [address] [place] [address] Basophils/100 WBC (Bld) 0.1 % Low 0.2-2.0 [facility] Comment on above: Performed By: #### 1 [id number], [id number], [id number] #### [facility] (DEFAULT) [address] [place] [address] Eos Abs# 1.2 x10 High 0.0-0.4 [facility] Comment on above: Performed By: #### 1 [id number], [id number], [id number] #### [facility] (DEFAULT) [address] [place] [address] Eosinophils/100 WBC (Bld) 11.4 % High 0.9-4.0 [facility] Comment on above: Performed By: #### 1 [id number], [id number], [id number] #### [facility] (DEFAULT) [address] [place] [address] Lymphocytes (Bld) [#/Vol] 3.3 x10 High 1.3-2.9 [facility] Comment on above: Performed By: #### 1 [id number], [id number], [id number] #### [facility] (DEFAULT) [address] [place] [address] Lymphocytes/100 WBC (Bld) 31 % Normal 14-48 [facility] Comment on above: Performed By: #### 1 [id number], [id number], [id number] #### [facility] (DEFAULT) [address] [place] [address] Traverse Abs# 0.6 x10 Normal 0.0-0.8 [facility] Comment on above: Performed By: #### 1 [id number], [id number], [id number] #### [facility] (DEFAULT) [address] [place] [address] Neut Abs# 5.7 x10 Normal 1.5-9.2 [facility] Comment on above: Performed By: #### 1 [id number], [id number], [id number] #### [facility] (DEFAULT) [address] [place] [address] Neutrophils/100 WBC (Bld) 53 % Normal 44-88 [facility] Comment on above: Performed By: #### 1 [id number], [id number], [id number] #### [facility] (DEFAULT) [address] [place] [address] BMP Standardon 05-07-2019 eGFR Non AA >60 [facility] Comment on above: Performed By: #### 1 [id number], [id number], [id number] #### [facility] (DEFAULT) [address] [place] [address] eGFR AA >60 [facility] Comment on above: Result Comment: Clothes Separator anna Kidney disease could be indicated at eGFRs of less than 60 ml/min/1.73m2. Kidney Failure is indicated at less than 15 ml/min/1.73m2 Performed By: #### 1 [id number], [id number], [id number] #### [facility] (DEFAULT) [address] [place] [address] Anion gap [Moles/Vol] 13.0 mmol/L Normal 5.0-19.0 [facility] Comment on above: Performed By: #### 1 [id number], [id number], [id number] #### [facility] (DEFAULT) [address] [place] [address] Calcium [Mass/Vol] 9.3 mg/dL Normal 8.9-10.3 [facility] Comment on above: Performed By: #### 1 [id number], [id number], [id number] #### [facility] (DEFAULT) [address] [place] [address]353 Chloride [Moles/Vol] 100 mmol/L Low 101-111 [facility] Comment on above: Performed By: #### 1 [id number], [id number], [id number] #### [facility] (DEFAULT) [address] [place] [address] 76337 CO2 [Moles/Vol] 29 mmol/L Normal 21-32 [facility] Comment on above: Performed By: #### 1 [id number], [id number], [id number] #### [facility] (DEFAULT) [address] [place] [address] Creatinine [Mass/Vol] 0.83 mg/dL Normal 0.60-1.30 [facility] Comment on above: Performed By: #### 1 [id number], [id number], [id number] #### [facility] (DEFAULT) [address] [place] [address] 25552 Glucose [Mass/Vol] 119.0 mg/dL High 74.0-118.0 [facility] Comment on above: Performed By: #### 1 [id number], [id number], [id number] #### [facility] (DEFAULT) [address] [place] [address]326 Osmolality [Osmolality] 280 mOsm/L [facility] Comment on above: Performed By: #### 1 [id number], [id number], [id number] #### [facility] (DEFAULT) [address] [place] [address] 68297 Potassium [Moles/Vol] 4.2 mmol/L Normal 3.6-5.1 [facility] Comment on above: Performed By: #### 1 [id number], [id number], [id number] #### [facility] (DEFAULT) [address] [place] [address] 48696 Sodium [Moles/Vol] 138.0 mmol/L Normal 136.0-144.0 [facility] Comment on above: Performed By: #### 1 [id number], [id number], [id number] #### [facility] (DEFAULT) [address] [place] [address] 61923 Urea nitrogen [Mass/Vol] 21 mg/dL Normal 8-26 [facility] Comment on above: Performed By: #### 1 [id number], [id number], [id number] #### [facility] (DEFAULT) [address] [place] [address] 43085 Urea nitrogen/Creatinine [Mass ratio] 25.0 mg/mg High 4.6-16.2 [facility] Comment on above: Performed By: #### 1 [id number], [id number], [id number] #### [facility] (DEFAULT) [address] [place] [address] CBC w/ Auto Diffon 0 Erythrocyte distribution width (RBC) [Ratio] 14.5 % Normal 11.5-15.0 [facility] Comment on above: Performed By: #### 7 [id number], [id number], [id number] #### [facility] (DEFAULT) [address] [place] [address] Hematocrit (Bld) [Volume fraction] 40.5 % High 33.7-40.4 [facility] Comment on above: Performed By: #### 7 [id number], [id number], [id number] #### [facility] (DEFAULT) [address] [place] [address] Hemoglobin (Bld) [Mass/Vol] 12.7 g/dL Normal 11.3-15.9 [facility] Comment on above: Performed By: #### 7 [id number], [id number], [id number] #### [facility] (DEFAULT) [address] [place] [address] Man Diff? Auto Normal [facility] Comment on above: Performed By: #### 7 [id number], [id number], [id number] #### [facility] (DEFAULT) [address] [place] [address] MCH (RBC) [Entitic mass] 28 pg Normal 24-34 [facility] Comment on above: Performed By: #### 7 [id number], [id number], [id number] #### [facility] (DEFAULT) [address] [place] [address] MCHC (RBC) [Mass/Vol] 31 g/dL Normal 26-37 [facility] Comment on above: Performed By: #### 7 [id number], [id number], [id number] #### [facility] (DEFAULT) [address] [place] [address] MCV (RBC) [Entitic vol] 91 fL Normal 81-100 [facility] Comment on above: Performed By: #### 7 [id number], [id number], [id number] #### [facility] (DEFAULT) [address] [place] [address] Platelet mean volume (Bld) [Entitic vol] 9.4 fL Normal 6.3-10.2 [facility] Comment on above: Performed By: #### 7 [id number], [id number], [id number] #### [facility] (DEFAULT) [address] [place] [address] Platelets (Bld) [#/Vol] 275 x10 Normal 138-427 [facility] Comment on above: Performed By: #### 7 [id number], [id number], [id number] #### [facility] (DEFAULT) [address] [place] [address] RBC (Bld) [#/Vol] 4.45 x10 Normal 3.70-5.[address] [facility] Comment on above: Performed By: #### 7 [id number], [id number], [id number] #### [facility] (DEFAULT) [address] [place] [address] WBC (Bld) [#/Vol] 10.9 x10 High 3.5-10.[address] [facility] Comment on above: Performed By: #### 7 [id number], [id number], [id number] #### [facility] (DEFAULT) [address] [place] [address] Patient Letteron 03-12-2019 Patient Letter [id number]#1.0 0OTGTIFF Normal [facility] Patient Letter [id number]#1.0 0OTGTIFF Normal [facility] CARDIAC STRESS/REST INJE CTIONon 12-31-2018 [facility] CARDIAC STRESS/REST INJECTION Patient Name: JEANMARIE GARCIA STUDY: MYOCARDIAL PERFUSION STRESS TEST WITH LEXISCAN Performing facility: [facility], [address], [address], [place] [address] [facility] Provider: Sharon Jones MD, [facility] PCP: Dr. Milton FUENTES SURGEON: DR. Debbi GARCIA Supervising provider: Rui Ford DO, [facility] INDICATION: DM NICM Pre-operative risk assessment for ventral Hernia scheduled at [facility], DATE PENDING HISTORY: Gender: F; Age: 68 y/o ; Height: 162.56 cm; Weight: 96.6755109 kg. High Cholesterol; Diabetes; HTN; COPD; NICM Currently smoking. COMPARISON: No comparison. ACCESSION NUMBER(S): [id number]; [id number]; [id number] ORDERING CLINICIAN: KEVIN JONES TECHNIQUE: ONE DAY protocol. Stress injection: Date:12/31/18, 35 mCi of Myoview IV 20 seconds after rapid injection of Lexiscan. Rest injection: Date: 12/31/18, 10.5 mCi of Myoview IV at rest. The patient had a rapid injection of 0.4 mg of Lexiscan IV over 10 seconds. Imaging was performed by gated tomographic technique. Reason for Lexiscan: uses wheelchair/WALKER STRESS TEST DATA: Resting heart rate was 82 BPM. Resting blood pressure was 132/90 mmHg. Peak blood pressure was 140/82 mmHg. Peak heart rate was 106 BPM. TEST TERMINATED DUE TO: Protocol completed FINDINGS: STRESS TEST RESULTS: Resting electrocardiogram revealed normal sinus rhythm. There were no significant ischemic ECG changes or dysrhythmias. The patient did not have chest pains/symptoms during procedure. There was a normal recovery phase. IMAGING RESULTS: Image quality was good. Rest and stress tomographic images were reviewed and revealed abnormal perfusion. There was evidence of ischemia by perfusion images with small area of milld septal ischemia. There was no evidence of myocardial infarction by perfusion images. There was no left ventricular dilatation with stress. Overall left ventricular systolic function appeared to be normal. There were no regional wall motion abnormalities . LVEF was 51%. TID is 0.965 and is normal. There was no evidence of attenuation artifact. IMPRESSION: Abnormal Lexiscan Myoview cardiac perfusion stress test. Mild septal myocardial ischemia by perfusion imaging. No myocardial infarction by perfusion imaging. normal left ventricular systolic function. Left ventricular ejection fraction 51 %. No previous studies are available for comparison. Electronically signed by: BERTHA GONZALEZ MD [facility] Coding Summaryon 12-30-2018 Coding Summary CODING DATE: 12/30/2018 [facility] STATUS: Home PAYOR: Medicare ADMIT DX: REASON FOR VISIT DX: FINAL DX: PRINCIPAL: K43.2 Incisional hernia without obstruction or gangrene SECONDARY: PROCEDURES DOCTOR NAME DATE NOTE: The code number assigned matches the documented diagnosis and / or procedure in the patient's chart. However, the narrative phrase printed from the coding software may appear abbreviated, or result in slightly different terminology. Coded By: Mony Vines Date Saved: 12/30/2018 03:13 pm [facility] Outside Recordson 12-25-2018 Outside Records [id number]#1. 00OTGTIFF [facility] Progress Note - Nurseon 11-07 Progress Note - Nurse Chart reviewed by Dr. Palacios no new orders received. [Electronically Signed on: 11/21/2018 14:21 EDT] Yolanda Soto RN [Verified on: 11/21/2018 14:21 EDT] Yolanda Soto RN [facility] Coding Summaryon 11-20-2018 Coding Summary CODING DATE: 11/20/2018 [facility] STATUS: Home PAYOR: Medicare APC DESCRIPTION 5733 Level 3 Minor Procedures ADMIT DX: REASON FOR VISIT DX: Z01.818 Encounter for other preprocedural examination FINAL DX: PRINCIPAL: Z01.818 Encounter for other preprocedural examination SECONDARY: PYMT PROC APC STAT DESCRIPTION DOCTOR NAME DATE NOTE: The code number assigned matches the documented diagnosis and / or procedure in the patient's chart. However, the narrative phrase printed from the coding software may appear abbreviated, or result in slightly different terminology. Coded By: Tasha Justin Date Saved: 11/20/2018 11:29 am [facility] .Auto Diff 1on 11-19-2018 Auto Traverse % 5 % Normal 1-12 [facility] Comment on above: Performed By: #### 1 [id number], [id number], [id number] #### [facility] (DEFAULT) [address] [place] [address]136 Baso Abs# 0.0 x10 Normal 0.0-0.2 [facility] Comment on above: Performed By: #### 1 [id number], [id number], [id number] #### [facility] (DEFAULT) [address] [place] [address] 14799 Basophils/100 WBC (Bld) 0.1 % Low 0.2-2.0 [facility] Comment on above: Performed By: #### 1 [id number], [id number], [id number] #### [facility] (DEFAULT) [address] [place] [address] 43908 Eos Abs# 1.3 x10 High 0.0-0.4 [facility] Comment on above: Performed By: #### 1 [id number], [id number], [id number] #### [facility] (DEFAULT) [address] [place] [address] 57873 Eosinophils/100 WBC (Bld) 11.7 % High 0.9-4.0 [facility] Comment on above: Performed By: #### 1 [id number], [id number], [id number] #### [facility] (DEFAULT) [address] [place] [address] 19412 Lymphocytes (Bld) [#/Vol] 2.9 x10 Normal 1.3-2.9 [facility] Comment on above: Performed By: #### 1 [id number], 0745543, [id number] #### [facility] (DEFAULT) [address] [place] [address] 18532 Lymphocytes/100 WBC (Bld) 26 % Normal 14-48 [facility] Comment on above: Performed By: #### 1 [id number], 6149046, [id number] #### [facility] (DEFAULT) [address] [place] [address] 54570 Traverse Abs# 0.5 x10 Normal 0.0-0.8 [facility] Comment on above: Performed By: #### 1 [id number], 6602225, [id number] #### [facility] (DEFAULT) [address] [place] [address] 09360 Neut Abs# 6.4 x10 Normal 1.5-9.2 [facility] Comment on above: Performed By: #### 1 [id number], 0750685, 82604056 #### [facility] (DEFAULT) [address] [place] [address] 14671 Neutrophils/100 WBC (Bld) 58 % Normal 44-88 [facility] Comment on above: Performed By: #### 1 [id number], 8038938, 89683899 #### [facility] (DEFAULT) [address] [place] [address] 27255 BMP Standardon 11-19-2018 eGFR Non AA 60 mL/min/1.73m2 [facility] Comment on above: Performed By: #### 1 [id number], 3353771, [id number] #### [facility] (DEFAULT) [address] [place] [address] 37344 eGFR AA >60 [facility] Comment on above: Result Comment: Clothes Separator anna Kidney disease could be indicated at eGFRs of less than 60 ml/min/1.73m2. Kidney Failure is indicated at less than 15 ml/min/1.73m2 Performed By: #### 1 [id number], 9784802, 77405474 #### [facility] (DEFAULT) [address] [place] [address] 38517 Anion gap [Moles/Vol] 15.0 mmol/L Normal 5.0-19.0 [facility] Comment on above: Performed By: #### 1 [id number], 7284755, 73033831 #### [facility] (DEFAULT) [address] [place] [address] 51633 Calcium [Mass/Vol] 9.5 mg/dL Normal 8.9-10.3 [facility] Comment on above: Performed By: #### 1 [id number], 1056005, 98820521 #### [facility] (DEFAULT) [address] [place] [address] 02159 Chloride [Moles/Vol] 101 mmol/L Normal 101-111 [facility] Comment on above: Performed By: #### 1 [id number], 4709924, [id number] #### [facility] (DEFAULT) [address] [place] [address] 59046 CO2 [Moles/Vol] 26 mmol/L Normal 21-32 [facility] Comment on above: Performed By: #### 1 [id number], 3199221, 18921272 #### [facility] (DEFAULT) [address] [place] [address] 66835 Creatinine [Mass/Vol] 0.93 mg/dL Normal 0.60-1.30 [facility] Comment on above: Performed By: #### 1 [id number], 2959348, 68943279 #### [facility] (DEFAULT) [address] [place] [address] 07654 Glucose [Mass/Vol] 128.0 mg/dL High 74.0-118.0 [facility] Comment on above: Performed By: #### 1 [id number], 8075972, 65012159 #### [facility] (DEFAULT) [address] [place] [address] 61384 Osmolality [Osmolality] 281 mOsm/L [facility] Comment on above: Performed By: #### 1 [id number], 7784881, 83073596 #### [facility] (DEFAULT) [address] [place] [address] 18752 Potassium [Moles/Vol] 4.2 mmol/L Normal 3.6-5.1 [facility] Comment on above: Performed By: #### 1 [id number], 3985468, 25687168 #### [facility] (DEFAULT) [address] [place] [address] 00837 Sodium [Moles/Vol] 138.0 mmol/L Normal 136.0-144.0 [facility] Comment on above: Performed By: #### 1 [id number], 5280447, 21365320 #### [facility] (DEFAULT) [address] [place] [address] 91723 Urea nitrogen [Mass/Vol] 22 mg/dL Normal 8-26 [facility] Comment on above: Performed By: #### 1 [id number], 0135933, 92023255 #### [facility] (DEFAULT) [address] [place] [address] Urea nitrogen/Creatinine [Mass ratio] 24.0 mg/mg High 4.6-16.2 [facility] Comment on above: Performed By: #### 1 [id number], 7946443, 22886450 #### [facility] (DEFAULT) [address] [place] [address] CBC w/ Auto Diffon 9 Erythrocyte distribution width (RBC) [Ratio] 14.9 % Normal 11.5-15.0 [facility] Comment on above: Performed By: #### 1 [id number], 0753576, 24805978 #### [facility] (DEFAULT) [address] [place] [address] Hematocrit (Bld) [Volume fraction] 39.4 % Normal 33.7-40.4 [facility] Comment on above: Performed By: #### 1 [id number], 3095932, 74021286 #### [facility] (DEFAULT) [address] [place] [address] Hemoglobin (Bld) [Mass/Vol] 12.4 g/dL Normal 11.3-15.9 [facility] Comment on above: Performed By: #### 1 [id number], 4024209, 40394051 #### [facility] (DEFAULT) [address] [place] [address] Man Diff? Auto Normal [facility] Comment on above: Performed By: #### 1 [id number], 3891854, 74265616 #### [facility] (DEFAULT) [address] [place] [address] MCH (RBC) [Entitic mass] 29 pg Normal 24-34 [facility] Comment on above: Performed By: #### 1 [id number], 0440194, 57457309 #### [facility] (DEFAULT) [address] [place] [address] MCHC (RBC) [Mass/Vol] 32 g/dL Normal 26-37 [facility] Comment on above: Performed By: #### 1 [id number], 3239601, 69382771 #### [facility] (DEFAULT) [address] [place] [address] 53696 MCV (RBC) [Entitic vol] 91 fL Normal 81-100 [facility] Comment on above: Performed By: #### 1 [id number], 7674251, 53937923 #### [facility] (DEFAULT) [address] [place] [address] 29703 Platelet mean volume (Bld) [Entitic vol] 9.3 fL Normal 6.3-10.2 [facility] Comment on above: Performed By: #### 1 [id number], 3276517, 22902869 #### [facility] (DEFAULT) [address] [place] [address] 70260 Platelets (Bld) [#/Vol] 278 x10 Normal 138-427 [facility] Comment on above: Performed By: #### 1 [id number], 9649903, 33140387 #### [facility] (DEFAULT) [address] [place] [address] 88410 RBC (Bld) [#/Vol] 4.34 x10 Normal 3.70-5.[address] [facility] Comment on above: Performed By: #### 1 [id number], 6448588, 12011398 #### [facility] (DEFAULT) [address] [place] [address] 67042 WBC (Bld) [#/Vol] 11.2 x10 High 3.5-10.[address] [facility] Comment on above: Performed By: #### 1 [id number], 7120092, 62840342 #### [facility] (DEFAULT) [address] [place] [address] 18993 PROGRESSon 07-19-2017 PROGRESS HNO ID: [id number]: Celina Dorantes) GrantService: (none)Author Type: Physician AssistantType: Progress NotesFiled: 07/20/2017 10:27 AMNote Text: [facility] NOTENAME: ELMA GARCIA NO.: [id number] OF SERVICE: 07/19/2017Irina Summers OF : [birth year]CHIEF COMPLAINT: Foot discomfort.SUBJECTIVE FINDINGS: I was asked to see the patient by the nursing staffto check her feet. She recently underwent some callus debridement whileat podiatry. She was refusing at times to wear her shoes. The patientotherwise had no complaints. She was eating and drinking well. Shefrequently left the facility and went out with friends. She wascontinuing to gain weight and weight was up to 208 pounds. She reportedher bowels to be regular.REVIEW OF SYSTEMS: Please see above.MEDICATIONS: Reviewed in the senior living record.CODE STATUS: Full code.PHYSICAL EXAMINATION: Revealed middle-aged woman who is alert andappropriate and in no distress. Skin revealed some mild thickened skinand calluses to the heels without any evidence whatsoever of necrotictissue, ulceration or maceration. The skin on the heels is noterythematous whatsoever. Exam revealed her to be alert and appropriate.HEENT: Mucosa moist. Heart: Regular rate and rhythm. Lungs: Clear.Abdomen: Positive bowel sounds, soft. No tenderness. Extremities:Nonedemato us.ASSESSMENT AND PLAN:1. Foot calluses. No evidence of any skin breakdown or ulcerations.Recommend that she wear her shoes regularly. 2. Seizure disorder. Shehas had no seizure activity. She remains on anti-seizure medication.3. Hypothyroidism. This has been stable. Continue present dose ofSynthroid.4. Remote deep venous thrombosis. She has had no recurrence. We willcontinue to monitor.5. Type 2 diabetes mellitus. Blood sugars have been in fair range. Wewill continue to monitor.6. Mild mental retardation and developmental disabilities. Maintaincurrent supportive care.DICTATED BY: AIDEE López/AcusisD: 018 JOB# [id number]:Irina Caalectronically Signed by Celina Judd PA-C at 07/20/2017 10:16:25 Normal [facility] PROGRESSon 06-07-2017 PROGRESS HNO ID: [id number]: Itri A ErenService: (none)Author Type: PhysicianType: Progress NotesFiled: 06/08/2017 4:57 PMNote Text: [facility] NOTENAME: PATRICIO GARCIA NO.: [id number] OF SERVICE: 06/07/2017[facility] OF : 1950She is sitting up in bed. She is quite alert and responsive. She isconcerned that she has gained a lot of weight and is hoping to cut backon her oral intake to try to lose some weight. She denies any shortnessof breath or chest pain.PHYSICAL EXAMINATION: Blood pressure 118/74, pulse 80, respirations 18.HEENT: Intact. Lungs: Clear. Heart: Regular. Abdomen: Soft,nontender. Bowel sounds present. Extremities: With no edema.IMPRESSION:1. Seizure disorder - she has had no seizures. She is on antiseizuremedication. 2. Hypothyroidism - she is on thyroid supplement. 3. Remote historyof deep venous thrombosis - she has had no obvious recurrence.4. Diabetes mellitus type 2 - blood sugars have been within fair range.5. History of mental retardation and developmental disabilities -maintain current supportive care.6. Hyperlipidemia - she is on atorvastatin therapy. Also, maintain hercurrent diabetic regimen.DICTATED BY: Fatmata Casey MDIAE/AcusisD:06/08/19 18 JOB# [id number]:[facility] Signed by Fatmata Casey MD at 06/08/2017 16:46:12 Normal [facility] PROGRESSon 05-17-2017 PROGRESS HNO ID: [id number]: Celina (Eduin) GrantService: (none)Author Type: Physician AssistantType: Progress NotesFiled: 05/18/2017 10:17 AMNote Text: [facility] NOTENAME: PATRICIO GARCIA NO.: [id number] OF SERVICE: 05/17/2017[facility] OF : [birth year]CHIEF COMPLAINT: Followup diabetes.SUBJECTIVE FINDINGS: The patient was seen in her room at [facility] follow[facility]. [facility] had been [facility] here approximately 1 month ago. Shecontinued to smoke on occasion, although she stated she was trying toquit. Nurses reported her to be eating and drinking well. There was noevidence of seizure activity. She reported that her appetite was goodand bowels regular.REVIEW OF SYSTEMS: Please see above.FAMILY/SOCIAL HISTORY: Unchanged.MEDICATIONS: Reviewed in the senior living record. Code status is fullcode.PHYSICAL EXAMINATION: Temperature 98.1, pulse 90, respirations 16, andblood pressure 122/81. Blood sugar is 120 this morning. Exam revealed apleasant, mildly obese, middle-aged woman, in no acute distress. She wascooperative for the examination and appropriate. Skin revealed nolesions. HEENT: Mucosa moist. Neck: Supple. Heart: Regular rate andrhythm. Lungs: Clear. Abdomen: Positive bowel sounds, soft. Notenderness noted. Extremities: No clubbing, cyanosis, or edema.ASSESSMENT AND PLAN:1. Type 2, diabetes mellitus. We will continue present regimen. Herblood sugars have been well controlled [facility]2. Seizure disorder. No recent seizure activity. We will continue tomonitor closely.3. Hypothyroidism. This has been stable. We will continue presentdose of Synthroid.4. Hyperlipidemia, stable as well; we will continue statin. 5.Smoker/tobacco use. We will continue to monitor and attempt todiscourage her from smoking.6. Remote history of deep venous thrombosis. Presently not onanti-coagulation. We will continue to follow closely. 7. Mild mentalretardation. We will continue supportive care in the facility.DICTATED BY: AIDEE López/AcusisD: 018 JOB# [id number]:Irina Eldoraor Normal [facility] PROGRESSon 05-08-2017 PROGRESS HNO ID: [id number]: Fatmata Flanagan ErenService: (none)Author Type: PhysicianType: Progress NotesFiled: 05/09/2017 3:47 PMNote Text: [facility] NOTENAME: PATRICIO GARCIA NO.: [id number] OF SERVICE: 05/08/2017Irina Summers OF : 1950New Patient History and PhysicalHISTORY OF PRESENT ILLNESS: The patient is a 66-year-old female who wasadmitted to us directly from [facility] with a diagnosis of seizuredisorder, diabetes mellitus type 2, remote history of DVT, previousgoiter resection with hypothyroidism, history of MRDD, history ofhyponatremia, ongoing smoking history, and hyperlipidemia. Sheapparently did not like living at her community [facility] and istherefore now being admitted to our facility for long-term care.She is currently sitting up in her room. She is alert and appropriatelyresponsiv e. She states she had a good night's sleep. She denies anypain or discomfort at this time. She denies prior history of migraineheadaches, recent syncope, shortness of breath at this time, hemoptysis,recent pneumonia or bronchitis. No COPD or asthma. She does havehypothyroidism. She denies chest pain, angina, palpitations, previousheart surgeries or pacemakers. Her appetite has been fair. No bleedingulcers, hepatitis, or melena. No prior strokes. She apparently doeshave a seizure disorder for which she is on anticonvulsant therapy. Sheis also a diabetic. She is on insulin as well as oral medications. Shehas had a remote history of the extremity deep venous thrombosis. She isno longer on blood thinners. No bleeding problems or recent fever,chills, or falls.FAMILY HISTORY: Positive for diabetes.SOCIAL/FUNCTI ONAL HISTORY: She admits to smoking at least 4 cigarettesdaily. She is trying to cut down. No history of alcohol abuse.MEDICATIONS: Aspirin 81 mg daily, atorvastatin 10 mg at bedtime,benztropine 0.5 mg b.i.d., cholecalciferol 1000 as daily, glimepiride 2mg daily, Lantus insulin 10 units subcu daily, levothyroxine 125 mcgdaily, metformin, 500 mg b.i.d., omeprazole 20 mg at bedtime, inhalertherapy daily, and venlafaxine 150 mg daily.ALLERGIES: No known drug allergies.EXAMINATION: Vital Signs: Stable. She is in no distress. HEENT:Extraocular movements appear to be intact, sclerae are nonicteric. Ears: Intact. Lungs: Clear. Heart: Regular. Soft, nontender. Bowelsounds positive. Extremities: No edema.IMPRESSION:1. Diabetes plus type 2. - We will maintain current diabetic regimen.We will check hemoglobin A1c level, monitor blood sugars and adjustaccordingly.2. Seizure disorder. - She states that she has had no recent seizureactivity. We will maintain current anticonvulsant therapy. Monitor forany seizures. Consider Neurology consultation if indicated.3. Hypothyroidism with previous goiter resection. - Maintain currentthyroid supplement. We will check baseline thyroid levels. 4. Remotehistory of deep venous thrombosis. - We will monitor for any signs ofrecurrence. Once again, she is here for long-term care. She does have asmoking history. She states that she has tried the nicotine patch in thepast which has not helped. She is trying to cut down. We will monitorpulmonary status closely.DICTATED BY: Fatmata Casey MDIAE/AcusisD:05/08/19 18 JOB# [id number]:[place] Normal [facility] Encounters Encounter Date Encounter Type Care Provider Facility Start: 02-14-2022 End: 02-14-2022 ambulatory [place] Facility:[facility] Start: 10-25-2021 ambulatory Gerald Gaines y:[facility] Start: 09-01-2021 End: 09-06-2021 Evaluation and management of inpatient Services [facility] Facility:[facility] Start: 08-26-2021 End: 08-26-2021 ambulatory Cayla Gamez Other [employer] Other Start: 08-26-2021 Telephone encounter Cayla Gamez [facility] Start: 08-24-2021 End: 08-24-2021 ambulatory Services [facility] Facility:[facility] Start: 08-23-2021 End: 08-25-2021 ambulatory Services [facility] Facility:[facility] Start: 05-11-2021 End: 02-02-2022 ambulatory Cayla Fitt Other [employer] Other Start: 05-11-2021 Telephone encounter Cayla Jaffe [facility] Start: 04-20-2021 End: 04-20-2021 ambulatory Cayla Fitt Other [employer] Other Start: 04-20-2021 Telephone encounter Caylaisabel Jaffe [facility] Start: 04-12-2021 End: 04-12-2021 ambulatory Cayla Fitt Other [employer] Other Start: 04-12-2021 Telephone encounter Cayla Jaffe [facility] Procedures Date Procedure Procedure Detail Performing Clinician Start: 12-31-2018 Echocardiography Payers Date Payer Category Payer Unknown [id number] 2020 Medicaid [id number] 2. [id number] 2020 Medicare [id number] 2.1 [id number] 2020 Self-pay Unknown [id number] 2.16.8 [id number] Unknown [id number] 2.16.8 [id number] Unknown [id number] 2.16.8 [id number] Unknown [id number] 2.16.8 [id number] Unknown [id number] 2.16.8 [id number] Social History Date Type Detail Facility [facility] [employer] Other Evaluation note Note Date & Type Note Facility Evaluation note No Information [facility] Other History general Narrative - Reported Note Date & Type Note Facility History general Narrative - Reported Type Medical History schizophrenia Medical History Hypothyroidism Medical History COPD Medical History Hypertension Medical History CAD Surgical History thyroidectomy Surgical History exploratory lap, [facility] [employer] [facility] Other History general Narrative - Reported Note Date & Type Note Facility History general Narrative - Reported [facility] Other Summary Purpose Family History No Family History Records FoundNo Family History Records FoundNo Family History Records FoundNo Family History Records Found Advance Directives No Advanced Directives Records FoundNo Advanced Directives Records FoundNo Advanced Directives Records FoundNo Advanced Directives Records Found Hospital Course Note [facility] SURGERY Clinical Discharge Summary PERSON INFORMATION Name JEANMARIE GARCIA Age 68 Years 1950 Sex FEMALE Language Peruvian PCP GERALD FUENTES Marital Status Single Med Service Ambulatory Surgery Acct# Arrival 05/13/2019 05:53:00 Visit Reason SURGERY - INCISIONAL VENTRAL HERNIA REPAIR WITH MESH Acuity LOS 007 21:08 Address: [address] [place] [address] Comment: PROVIDER INFORMATION VITALS INFORMATION Vital Sign Triage Latest Temp Oral Temp Temporal Temp Intravascular Temp Axillary Temp Rectal 02 Sat 98 % 93 % Respiratory Rate Peripheral Pulse Rate Apical Heart Rate Blood Pressure / 84 mmHg / 92 mmHg Comment: MEDICAL INFORMATION Allergy Info: No Known Medication Allergies Prescriptions Given: acetaminophen (acetaminophen 325 mg oral capsule) 2 cap(s) Oral Every 6 hours as needed as needed for pain. acetaminophen-hydrocodone (Golden 5 mg-325 mg oral tablet) 1 tab(s) Oral Every 6 hours as needed for pain. Refills: 0. a (more content not included)... Additional Source Comments INFORMATION SOURCE (unrecogn ized section and content) DATE CREATED AUTHOR 09/27/2017 [facility] DATE CREATED AUTHOR AUTHOR'S ORGANIZ ATION 01/11/2019 [facility] DATE CREATED AUTHOR AUTHOR'S ORGANIZ ATION 11/07/2019 [facility] DATE CREATED AUTHOR AUTHOR'S ORGANIZ ATION 05/13/2022 [facility] REASON FOR VISIT (unrecogniz ed section and content) [facility] AppointmentReview DM pl an of care FOR RECORDS PERTAINING TO PATIENTS WHO ARE OR HAVE BEEN ENROLLED IN A CHEMICAL DEPENDENCY/SUBSTANCEABUSE PROGRAM, SOME INFORMATION MAY BE OMITTED. This clinical summary was aggregated from multiple sources. Caution should be exercised in using it in the provision of clinical care. This summary normalizes information from multiple sources, and as a consequence, information in this document may materially change the coding, format and clinical context of patient data. In addition, data may be omitted in some cases. CLINICAL DECISIONS SHOULD BE BASED ON THE PRIMARY CLINICAL RECORDS. [employer] [facility]. provides no warranty or guarantee of the accuracy or completeness of information in this document.
[2023-06-06 08:35] LABS: Basophils Percent Auto 0.3 % (0.2-2.0); Eosinophils Absolute Auto 0.6 10^3/uL (0.0-0.7); Eosinophils Percent Auto 5.8 % (0.9-7.0); Hematocrit 40.3 % (36.0-48.0); Hemoglobin 12.5 g/dL (12.0-16.0); Immature Granulocytes Abs Auto 0.02 10^3/uL (0.00-0.03); Immature Granulocytes Pct Auto 0.2 % (0.0-0.5); Lymphocytes Absolute Auto 3.5 10^3/uL (1.2-3.8); Lymphocytes Percent Auto 33.7 % (20.5-60.0); Mean Corpuscular Volume 90.2 fL (81.0-99.0); Mean Platelet Volume 9.8 fL (9.5-13.5); Monocytes Absolute Auto 0.8 10^3/uL (0.3-0.8); Monocytes Percent Auto 7.5 % (1.7-12.0); Neutrophils Absolute Auto 5.5 10^3/uL (1.4-6.5); Neutrophils Percent Auto 52.5 % (43.0-75.0); Platelet Count 272 10^3/uL (150-450); Red Blood Count 4.47 10^6/uL (4.20-5.40); Red Cell Distribution Width 13.5 % (11.0-15.0); White Blood Count 10.5 10^3/uL (4.0-11.0)
[2023-06-06 10:02] LABS: Alanine Aminotransferase 23 U/L (14-59); Albumin Globulin Ratio 0.7; Albumin Level 3.4 g/dL (3.4-5.0); Alkaline Phosphatase 110 U/L (46-116); Anion Gap 12.2; Aspartate Amino Transferase 16 U/L (15-37); BUN Creatinine Ratio 23.1; Bilirubin Total 0.4 mg/dL (0.2-1.0); Calcium 9.4 mg/dL (8.5-10.1); Carbon Dioxide 30.2 mmol/L (21.0-32.0); Chloride 104 mmol/L (98-107); Estimated GFR (African America >60 (>=60); Estimated GFR (Non-African Ame 50 (>=60); Globulin 4.8 g/dL; Glucose 71 mg/dL (74-106); Potassium 4.4 mmol/L (3.5-5.1); Sodium 142 mmol/L (136-145); Thyroid Stimulating Hormone 0.763 uIU/mL (0.358-3.740); Total Protein 8.2 g/dL (6.4-8.2)
== END 2023-06-06 02:15 | disposition home or self-care (01) ==
LOC: LAB 02:14
PROVIDERS: Visit Provider Nurse Practitioner Family
DX: E78.2 Mixed hyperlipidemia (principal); E11.9 Type 2 diabetes mellitus without complications; I10 Essential (primary) hypertension; E03.9 Hypothyroidism, unspecified; E55.9 Vitamin D deficiency, unspecified; E53.8 Deficiency of other specified B group vitamins; K21.9 Gastro-esophageal reflux disease without esophagitis
CPT/HCPCS: 36415; 80053; 82607; 84436; 84443; 85025

== ENCOUNTER 2023-08-10 02:39 | Outpatient (REF) | payer MEDICARE, MEDICAID, SELFPAY ==
--- OUTSIDE RECORDS SUMMARY | 2023-08-10 02:44 | XMS_ITS | CCD ---
Author Organization [facility] Care Team Providers Care Electrical Mechanical Technician Name Role Phone Cayla Gamez Unavailable [facility] Primary Care Unavaila Martin Gu Attending Unavailable Elizabet Wilson Admitting Unavailable [facility] Primary Care Unavaila Isael Villatoro Attending Unavailable Isael Castro Admitting Unavailable Austin Head Unavailable [facility] Primary Care Unavaila Evert Hamlin Attending Unavailable Evert Grant Admitting Unavailable [facility] Care Unavaila ble Fuad Pillai Attending Unavailable Fuad Pillai Admitting Unavailable Gerald Fuentes Primary Care Unavailable Amando Soto Attending Unavailable Amando Soto Admitting Unavailable DELMA NUNN Primary Care Physician DELMA NUNN Attending Unavailable DELMA NUNN Primary Care Unavailable DELMA NUNN Admitting Unavailable Medications Current Medications Medication Drug Class(es) Dates Sig (Normalized) Sig (Original) acetaminophen 500 mg oral capsule (4 sources) take 1 capsule by mouth every six hours Acetaminophen 500 MG 1 capsule as needed Orally every 6 hrs Active [id number] 200 actuat albuterol 0.09 mg/actuat metered dose [...] Test Name Value Interpretation Reference Range Facility CBC w/ Auto Diffon 4 Basophil Absolute 0.0 E9/L Normal 0.0-0.2 [facility] Comment on above: Performed By: #### 1 [id number], 8344716, 54160386, 1713105, 8639467 #### [facility] [address] [place] [address] 49674 Basophils/100 WBC (Bld) 0.2 % Normal 0.0-2.0 [facility] Comment on above: Performed By: #### 1 [id number], 5814563, 60416497, 4555691, 9927879 #### [facility] [address] [place] [address] Eos Absolute 0.7 E9/L High 0.0-0.5 [facility] Comment on above: Performed By: #### 1 6107009, 3740596, 36761685, 9270240, 9859130 #### [facility] [address] [place] [address] 27866 Eosinophils/100 WBC (Bld) 6.8 % Normal 0.0-8.0 [facility] Comment on above: Performed By: #### 1 9709419, 9865960, 40841132, 2019769, 9618598 #### [facility] [address] [place], [place] [address] Erythrocyte distribution width (RBC) [Ratio] 13.8 % Normal 10.9-14.2 [facility] Comment on above: Performed By: #### 1 5643239, 5465705, 23859442, 7355669, 9803914 #### [facility] [address] [place] [address]37 Hematocrit (Bld) [Volume fraction] 39.0 % Normal 34.0-46.0 [facility] Comment on above: Performed By: #### 1 7270894, 7980307, 77513670, 0311231, 7831286 #### [facility] [address] [place] [address] 20371 Hemoglobin (Bld) [Mass/Vol] 12.4 g/dL Normal 12.0-16.0 [facility] Comment on above: Performed By: #### 1 1240176, 4589882, 56817786, 3311408, 2935500 #### [facility] [address] [place] [address] 14227 Lymph Absolute 2.5 E9/L Normal 1.0-4.0 [facility] Comment on above: Performed By: #### 1 7910436, 4647580, 62700594, 6336725, 0583358 #### [facility] [address] [place] [address] 20163 Lymphocytes/100 WBC (Bld) 25.9 % Normal 14.0-50.0 [facility] Comment on above: Performed By: #### 1 4061628, 5137208, 06894641, 0746975, 2259651 #### [facility] [address] [place] [address] 30867 MCH (RBC) [Entitic mass] 28.2 pg Normal 27.0-34.0 [facility] Comment on above: Performed By: #### 1 3603875, 7762841, 21089219, 2696972, 8976814 #### [facility] [address] [place] [address] 15795 MCHC (RBC) [Mass/Vol] 31.5 g/dL Normal 31.4-36.0 [facility] Comment on above: Performed By: #### 1 1654420, 0545355, 58627368, 2517467, 7836144 #### [facility] [address] [place] [address] 30739 MCV (RBC) [Entitic vol] 89.3 fL Normal 80.0-100.0 [facility] Comment on above: Performed By: #### 1 8384422, 5637003, 72436650, 1009981, 8858729 #### [facility] [address] [place] [address] 65348 Haines Absolute 0.6 E9/L Normal 0.2-1.0 [facility] Comment on above: Performed By: #### 1 2279841, 0008462, 83573650, 7052812, 8997188 #### [facility] [address] [place] [address] 83792 Monocytes/100 WBC (Bld) 6.2 % Normal 4.0-14.0 [facility] Comment on above: Performed By: #### 1 8852137, 5958030, 51783909, 3970829, 4384924 #### [facility] [address] [place] [address] Neutro Absolute 6.0 E9/L Normal 2.0-7.5 [facility] Comment on above: Performed By: #### 1 1856656, 0327732, 14986658, 2012919, 7504483 #### [facility] [address] [address] Neutro Auto 60.9 % Normal 36.0-75.0 [facility] Comment on above: Performed By: #### 1 4578688, 1542977, 45424510, 5440723, 5146413 #### [facility] [address] [place], [place] [address] Platelet 288.0 E9/L Normal 150.0-500.0 [facility] Comment on above: Performed By: #### 1 6188073, 0722111, 97559313, 5379315, 1350298 #### [facility] [address] [place] [address] 91697 Platelet mean volume (Bld) [Entitic vol] 7.8 fL Normal 6.4-10.8 [facility] Comment on above: Performed By: #### 1 5829337, 4110306, 97138096, 7189887, 1033645 #### [facility] [address] [place] [address] RBC 4.4 E12/L Normal 4.3-5.9 [facility] Comment on above: Performed By: #### 1 6806450, 7291341, 79166093, 0881502, 8227095 #### [facility] [address] [place] [address] WBC 9.8 E9/L Normal 4.0-11.0 [facility] Comment on above: Performed By: #### 1 2189927, 3274449, 44681969, 5460480, 6863041 #### [facility] [address] [place] [address] CHEMISTRYOrdered By: SYSTEM SYSTEM on 05-31-2023 Albumin [Mass/Vol] 4.0 g/dL Normal 3.3 - 5.0 gm/dL [facility] Albumin/Globulin [Mass ratio] 1.0 {ratio} Low 1.1 - 2.2 [facility] Alk Phos 90 [iU]/d Normal 21 - 98 Int._Unit/L [facility] ALT 13 [iU]/d Normal 6 - 46 Int._Unit/L [facility] Anion gap [Moles/Vol] 12 mmol/L Normal 6 - 16 mEq/L [facility] AST 13 [iU]/d Normal 5 - 43 Int._Unit/L [facility] Bili Total 0.4 mg/dL Normal 0.0 - 1.1 mg/dL [facility] Calcium [Mass/Vol] 9.6 mg/dL Normal 8.9 - 11. 1 mg/dL [facility] Chloride [Moles/Vol] 105 mmol/L Normal 101 - 1 11 mmol/L [facility] CO2 [Moles/Vol] 29 mmol/L Normal 21 - 31 mmol/L Remis ol Chem Cobalamin (Vitamin B12) [Mass/Vol] 242 pg/mL Normal 50 - 1500 pg/mL [facility] Creatinine [Mass/Vol] 0.9 mg/dL Normal 0.5 - 1.3 mg/dL [facility] eGFR 68 mL/min/1.73 m2 Normal >=59mL/min /1.7 3 m2 [facility] Globulin (S) [Mass/Vol] 3.9 g/dL Normal 1.4 - 4.0 gm/dL [facility] Glucose [Mass/Vol] 72 mg/dL Normal 55 - 199 mg/dL Re misol Chem Potassium [Moles/Vol] 4.1 mmol/L Normal 3.5 - 5.3 mmol/L [facility] Protein [Mass/Vol] 7.9 g/dL High 6.0 - 7.8 gm/dL [facility] Sodium [Moles/Vol] 142 mmol/L Normal 135 - 145 mmol/L [facility] T4 [Mass/Vol] 11.0 ug/dL High 4.6 - 9.1 mcg/dL [facility] TSH Qn 0.45 m[IU]/L Normal 0.34 - 5.60 mcIU/mL [facility] Urea nitrogen [Mass/Vol] 20 mg/dL Normal 5 - 21 mg/dL [facility] Urea nitrogen/Creatinine [Mass ratio] 22 mg/mg High 10 - 20 [facility] CMPon 05-31-2023 Albumin [Mass/Vol] 4.0 g/dL Normal 3.3-5.0 [facility] Comment on above: Performed By: #### 1 9002966, 1660850, 63132153, 2248027, 6603524 #### [facility] [address] [place] [address] Albumin/Globulin [Mass ratio] 1.0 {ratio} Low 1.1-2.2 [facility] Comment on above: Performed By: #### 1 2080788, 3373769, 28734168, 4756346, 4009463 #### [facility] [address] [place] [address] Alk Phos 90 Int._Unit/L Normal 21-98 [facility] Comment on above: Performed By: #### 1 3320487, 1850705, 24536098, 4068919, 2594814 #### [facility] [address] [place] [address] ALT 13 Int._Unit/L Normal 6-46 [facility] Comment on above: Performed By: #### 1 9419235, 6330617, 68785234, 8682131, 1615942 #### [facility] [address] [place] [address] Anion gap [Moles/Vol] 12 mmol/L Normal 6-16 [facility] Comment on above: Performed By: #### 1 9553979, 9139187, 40498807, 5599198, 0241307 #### [facility] [address] [place] [address] AST 13 Int._Unit/L Normal 5-43 [facility] Comment on above: Performed By: #### 1 2364061, 5218543, 26899652, 8700280, 9520031 #### [facility] [address] [place] [address] Bili Total 0.4 mg/dL Normal 0.0-1.1 [facility] Comment on above: Performed By: #### 1 1114204, 4685680, 30061387, 7425620, 9182578 #### [facility] [address] [place] [address] BUN/Creat Ratio 22 No Units High 10-[address] [facility] Comment on above: Performed By: #### 1 1186463, 0721269, 61079644, 7536550, 4533435 #### [facility] [address] [place] [address] Calcium [Mass/Vol] 9.6 mg/dL Normal 8.9-11.1 [facility] Comment on above: Performed By: #### 1 1125536, 7161275, 76912824, 5293220, 0443876 #### [facility] [address] [place] [address] Chloride [Moles/Vol] 105 mmol/L Normal 101-111 [facility] Comment on above: Performed By: #### 1 0309288, 8198319, 16151467, 7140746, 4945417 #### [facility] [address] [place] [address] CO2 [Moles/Vol] 29 mmol/L Normal 21-31 [facility] Comment on above: Performed By: #### 1 6026763, 8285320, 42543715, 5441196, 3814002 #### [facility] [address] [place] [address] Creatinine [Mass/Vol] 0.9 mg/dL Normal 0.5-1.3 [facility] Comment on above: Performed By: #### 1 7110879, 9546130, 61162507, 8859105, 3865541 #### [facility] [address] [place] [address] Globulin (S) [Mass/Vol] 3.9 g/dL Normal 1.4-4.0 [facility] Comment on above: Performed By: #### 1 6384193, 9413326, 14532283, 5231514, 3143593 #### [facility] [address] [place] [address] Glucose [Mass/Vol] 72 mg/dL Normal 55-199 [facility] Comment on above: Performed By: #### 1 2149143, 0190971, 83162670, 0394814, 5643838 #### [facility] [address] [place] [address] Potassium [Moles/Vol] 4.1 mmol/L Normal 3.5-5.3 [facility] Comment on above: Performed By: #### 1 2463084, 4488445, 38876429, 5949067, 7017159 #### [facility] [address] [place] [address] Protein [Mass/Vol] 7.9 g/dL High 6.0-7.8 [facility] Comment on above: Performed By: #### 1 5477273, 4234930, 53414384, 7720158, 6892525 #### [facility] [address] [place] [address] Sodium [Moles/Vol] 142 mmol/L Normal 135-145 [facility] Comment on above: Performed By: #### 1 3098070, 2056723, 13181800, 1994540, 5103571 #### [facility] [address] [place] [address] Urea nitrogen [Mass/Vol] 20 mg/dL Normal 5-21 [facility] Comment on above: Performed By: #### 1 2018279, 5726434, 93282295, 8583422, 7801502 #### [facility] [address] [place] [address] Consent for Treatmenton 05-11 Consent for Treatment [id number] 0TIFF Normal [facility] HEMATOLOGYOrdered By: SYSTEM SYSTEM on 05-31-2023 Basophil Absolute 0.0 E9/L Normal 0.0 - 0.2 E9/L Rem isol Heme Basophils/100 WBC (Bld) 0.2 % Normal 0.0 - 2.0 % [facility] Eos Absolute 0.7 E9/L High 0.0 - 0.5 E9/L [facility] Eosinophils/100 WBC (Bld) 6.8 % Normal 0.0 - 8.0 % [facility] Erythrocyte distribution width (RBC) [Ratio] 13.8 % Normal 10.9 - 14.2 % [facility] Hematocrit (Bld) [Volume fraction] 39.0 % Normal 34.0 - 46.0 % [facility] Hemoglobin (Bld) [Mass/Vol] 12.4 g/dL Normal 12.0 - 16.0 gm/dL [facility] Lymph Absolute 2.5 E9/L Normal 1.0 - 4.0 E9/L Remiso l Heme Lymphocytes/100 WBC (Bld) 25.9 % Normal 14.0 - 50.0 % [facility] MCH (RBC) [Entitic mass] 28.2 pg Normal 27.0 - 34.0 pg [facility] Heme MCHC (RBC) [Mass/Vol] 31.5 g/dL Normal 31.4 - 36.0 gm/dL [facility] MCV (RBC) [Entitic vol] 89.3 fL Normal 80.0 - 100.0 fL [facility] Haines Absolute 0.6 E9/L Normal 0.2 - 1.0 E9/L [facility] Monocytes/100 WBC (Bld) 6.2 % Normal 4.0 - 14.0 % [facility] Neutro Absolute 6.0 E9/L Normal 2.0 - 7.5 E9/L Remis ol Heme Neutro Auto 60.9 % Normal 36.0 - 75.0 % Rem[facility] He me Platelet 288.0 E9/L Normal 150.0 - 500.0 E9/L [facility] Platelet mean volume (Bld) [Entitic vol] 7.8 fL Normal 6.4 - 10.8 fL [facility] RBC 4.4 E12/L Normal 4.3 - 5.9 E12/L [facility] WBC 9.8 E9/L Normal 4.0 - 11.0 E9/L [facility] Physician Orderon 05-31-2023 Physician Order [id number] 0TIFF Normal [facility] T4 & TSHon 05-31-2023 TSH Qn 0.45 m[IU]/L Normal 0.34-5.60 [facility] Comment on above: Performed By: #### 1 6294462, 8143056, 81343190, 7280469, 8266750 #### [facility] [address] [place] [address] T4 11.0 microgram/dL High 4.6-9.1 [facility] Comment on above: Performed By: #### 1 4837223, 5134816, 80739876, 1747969, 9350322 #### [facility] [address] [place] [address] Vit B12on 05-31-2023 Cobalamin (Vitamin B12) [Mass/Vol] 242 pg/mL Normal 50-1500 [facility] Comment on above: Performed By: #### 1 8640472, 2135709, 76775148, 9559577, 8692474 #### [facility] [address] [place] [address] eGFRon 05-31-2023 eGFR 68 mL/min/1.73 m2 Normal >=59 [facility] Comment on above: Order Comment: Order added by Discern Expert. Performed By: #### 1 2572472, 2221310, 35227533, 1849045, 9878037 #### [facility] [address] [place] [address] 1,25 Dihydroxy Vit D Calcitr olon 02-14-2022 1,25 Dihydroxy Vit D Calcitrol 19.4 pg/mL Low 24.8-81.5 [facility] Comment on above: Order Comment: Reaso n for Exam Vitamin D deficiency Result Comment: Perf ormed at: BN - [facility] [address] [id number] Tax Manager: Favian Colby MD, Phone: [phone] PERFORMED BY: [facility] [address] [place] [address] PATHOLOGIST NETWORK SECURITY OFFICER HEMANT CHÁVEZ M.D. Performed By: #### G LULS #### Point of Care testing , Complete Blood Count Auto Di ffon 02-14-2022 Basophils (Bld) [#/Vol] 0.0 10*3/uL Normal 0.0-0.2 [facility] Comment on above: Order Comment: Reaso n for Exam Essential hypertension Result Comment: PERF ORMED BY: [facility] [address] [place] [address] PATHOLOGIST NETWORK SECURITY OFFICER HEMANT CHÁVEZ M.D. Performed By: #### G LULS #### Point of Care testing , Basophils/100 WBC (Bld) 0.2 % Normal . [facility] Comment on above: Order Comment: Reaso n for Exam Essential hypertension Performed By: #### G LULS #### Point of Care testing , Eosinophils (Bld) [#/Vol] 0.6 10*3/uL High 0.0-0.45 [facility] Comment on above: Order Comment: Reaso n for Exam Essential hypertension Performed By: #### G LULS #### Point of Care testing , Eosinophils/100 WBC (Bld) 5.7 % Normal . [facility] Comment on above: Order Comment: Reaso n for Exam Essential hypertension Performed By: #### G LULS #### Point of Care testing , Erythrocyte distribution width (RBC) [Ratio] 14.7 % Normal 11.9-15.3 [facility] Comment on above: Order Comment: Reaso n for Exam Essential hypertension Performed By: #### G LULS #### Point of Care testing , Hematocrit (Bld) [Volume fraction] 38.2 % Normal 34.0-46.4 [facility] Comment on above: Order Comment: Reaso n for Exam Essential hypertension Performed By: #### G LULS #### Point of Care testing , Hemoglobin (Bld) [Mass/Vol] 12.4 g/dL Normal 11.8-15.4 [facility] Comment on above: Order Comment: Reaso n for Exam Essential hypertension Performed By: #### G LULS #### Point of Care testing , Lymphocytes (Bld) [#/Vol] 2.9 10*3/uL Normal 1.00-4.8 [facility] Comment on above: Order Comment: Reaso n for Exam Essential hypertension Performed By: #### G LULS #### Point of Care testing , Lymphocytes/100 WBC (Bld) 28.8 % Normal . [facility] Comment on above: Order Comment: Reaso n for Exam Essential hypertension Performed By: #### G LULS #### Point of Care testing , MCH (RBC) [Entitic mass] 28.0 pg Normal 24.7-34.3 [facility] Comment on above: Order Comment: Reaso n for Exam Essential hypertension Performed By: #### G LULS #### Point of Care testing , MCV (RBC) [Entitic vol] 86.6 fL Normal 80-100 [facility] Comment on above: Order Comment: Reaso n for Exam Essential hypertension Performed By: #### G LULS #### Point of Care testing , Mean Corpuscular HGB Conc 32.4 g/dL Normal 32.0-35.0 [facility] Comment on above: Order Comment: Reaso n for Exam Essential hypertension Performed By: #### G LULS #### Point of Care testing , Monocytes (Bld) [#/Vol] 0.5 10*3/uL Normal 0.0-0.8 [facility] Comment on above: Order Comment: Reaso n for Exam Essential hypertension Performed By: #### G LULS #### Point of Care testing , Monocytes/100 WBC (Bld) 5.1 % Normal . [facility] Comment on above: Order Comment: Reaso n for Exam Essential hypertension Performed By: #### G LULS #### Point of Care testing , Neutrophils (Bld) [#/Vol] 6.1 10*3/uL Normal 1.8-7.7 [facility] Comment on above: Order Comment: Reaso n for Exam Essential hypertension Performed By: #### G LULS #### Point of Care testing , Neutrophils/100 WBC (Bld) 60.2 % Normal . [facility] Comment on above: Order Comment: Reaso n for Exam Essential hypertension Performed By: #### G LULS #### Point of Care testing , Nucleated RBC/100 WBC (Bld) [Ratio] 0.1 % Normal 0-0.5 [facility] Comment on above: Order Comment: Reaso n for Exam Essential hypertension Performed By: #### G LULS #### Point of Care testing , Platelet mean volume (Bld) [Entitic vol] 7.8 fL Normal 6.3-10.7 [facility] Comment on above: Order Comment: Reaso n for Exam Essential hypertension Performed By: #### G LULS #### Point of Care testing , Platelets (Bld) [#/Vol] 330 10*3/uL Normal 150-450 [facility] Comment on above: Order Comment: Reaso n for Exam Essential hypertension Performed By: #### G LULS #### Point of Care testing , RBC (Bld) [#/Vol] 4.41 10*6/uL Normal 3.60-5.00 [facility] Comment on above: Order Comment: Reaso n for Exam Essential hypertension Performed By: #### G LULS #### Point of Care testing , WBC (Bld) [#/Vol] 10.1 10*3/uL Normal 4.5-11.0 [facility] Comment on above: Order Comment: Reaso n for Exam Essential hypertension Performed By: #### G LULS #### Point of Care testing , Comprehensive Metabolic Pane eric 02-14-2022 Albumin [Mass/Vol] 3.8 g/dL Normal 3.2-5.5 [facility] Comment on above: Order Comment: PT FA STED 12 HRS Reason for Exam Essential hypertension Reason for Exam Vitamin B12 deficiency Reason for Exam Hypothyroidism, unspecified type Performed By: #### G LULS #### Point of Care testing , Albumin/Globulin [Mass ratio] 1.0 {ratio} Normal [facility] Comment on above: Order Comment: PT FA STED 12 HRS Reason for Exam Essential hypertension Reason for Exam Vitamin B12 deficiency Reason for Exam Hypothyroidism, unspecified type Performed By: #### G STEVIELS #### Point of Care testing , ALP [Catalytic activity/Vol] 109 U/L High 32-92 [facility] Comment on above: Order Comment: PT FA STED 12 HRS Reason for Exam Essential hypertension Reason for Exam Vitamin B12 deficiency Reason for Exam Hypothyroidism, unspecified type Performed By: #### G STEVIELS #### Point of Care testing , ALT [Catalytic activity/Vol] 14 U/L Normal 10-60 [facility] Comment on above: Order Comment: PT FA STED 12 HRS Reason for Exam Essential hypertension Reason for Exam Vitamin B12 deficiency Reason for Exam Hypothyroidism, unspecified type Performed By: #### G STEVIELS #### Point of Care testing , Anion gap [Moles/Vol] 12.1 mmol/L Normal 6.0-15.0 [facility] Comment on above: Order Comment: PT FA STED 12 HRS Reason for Exam Essential hypertension Reason for Exam Vitamin B12 deficiency Reason for Exam Hypothyroidism, unspecified type Performed By: #### G WILLEM #### Point of Care testing , AST [Catalytic activity/Vol] 15 U/L Normal 10-42 [facility] Comment on above: Order Comment: PT FA STED 12 HRS Reason for Exam Essential hypertension Reason for Exam Vitamin B12 deficiency Reason for Exam Hypothyroidism, unspecified type Performed By: #### G WILLEM #### Point of Care testing , Bilirubin [Mass/Vol] 0.7 mg/dL Normal 0.3-1.2 [facility] Comment on above: Order Comment: PT FA STED 12 HRS Reason for Exam Essential hypertension Reason for Exam Vitamin B12 deficiency Reason for Exam Hypothyroidism, unspecified type Performed By: #### G WILLEM #### Point of Care testing , Calcium [Mass/Vol] 9.3 mg/dL Normal 8.2-10.2 [facility] Comment on above: Order Comment: PT FA STED 12 HRS Reason for Exam Essential hypertension Reason for Exam Vitamin B12 deficiency Reason for Exam Hypothyroidism, unspecified type Performed By: #### G STEVIELS #### Point of Care testing , Chloride [Moles/Vol] 103 mmol/L Normal 95-114 [facility] Comment on above: Order Comment: PT FA STED 12 HRS Reason for Exam Essential hypertension Reason for Exam Vitamin B12 deficiency Reason for Exam Hypothyroidism, unspecified type Performed By: #### G LULS #### Point of Care testing , CO2 [Moles/Vol] 28.0 mmol/L Normal 22.0-30.0 [facility] Comment on above: Order Comment: PT FA STED 12 HRS Reason for Exam Essential hypertension Reason for Exam Vitamin B12 deficiency Reason for Exam Hypothyroidism, unspecified type Performed By: #### G LULS #### Point of Care testing , Creatinine [Mass/Vol] 0.94 mg/dL Normal 0.44-1.03 [facility] Comment on above: Order Comment: PT FA STED 12 HRS Reason for Exam Essential hypertension Reason for Exam Vitamin B12 deficiency Reason for Exam Hypothyroidism, unspecified type Performed By: #### G LULS #### Point of Care testing , Estimated GFR ( Roseline > 60 [facility] Comment on above: Order Comment: PT FA [...] testing , Estimated GFR (Non- Am 59 [facility] Comment on above: Order Comment: PT FA STED 12 HRS Reason for Exam Essential hypertension Reason for Exam Vitamin B12 deficiency Reason for Exam Hypothyroidism, unspecified type Performed By: #### G LULS #### Point of Care testing , Globulin (S) [Mass/Vol] 3.7 g/dL [facility] Comment on above: Order Comment: PT FA STED 12 HRS Reason for Exam Essential hypertension Reason for Exam Vitamin B12 deficiency Reason for Exam Hypothyroidism, unspecified type Performed By: #### G LULS #### Point of Care testing , Glucose [Mass/Vol] 103 mg/dL High 70-100 [facility] Comment on above: Order Comment: PT FA STED 12 HRS Reason for Exam Essential hypertension Reason for Exam Vitamin B12 deficiency Reason for Exam Hypothyroidism, unspecified type Result Comment: [place] Glucose Reference Range is dependent on time and content of last meal. Glucose of more than 200 mg/dL in a nonstressed, ambulatory subject supports the diagnosis of Diabetes Mellitus. ADA recommended reference range Performed By: #### G LULS #### Point of Care testing , Potassium [Moles/Vol] 4.1 mmol/L Normal 3.5-5.1 [facility] Comment on above: Order Comment: PT FA STED 12 HRS Reason for Exam Essential hypertension Reason for Exam Vitamin B12 deficiency Reason for Exam Hypothyroidism, unspecified type Performed By: #### G LULS #### Point of Care testing , Protein [Mass/Vol] 7.5 g/dL Normal 6.1-7.9 [facility] Comment on above: Order Comment: PT FA STED 12 HRS Reason for Exam Essential hypertension Reason for Exam Vitamin B12 deficiency Reason for Exam Hypothyroidism, unspecified type Performed By: #### G LULS #### Point of Care testing , Sodium [Moles/Vol] 139 mmol/L Normal 136-146 [facility] Comment on above: Order Comment: PT FA STED 12 HRS Reason for Exam Essential hypertension Reason for Exam Vitamin B12 deficiency Reason for Exam Hypothyroidism, unspecified type Performed By: #### G LULS #### Point of Care testing , Urea nitrogen [Mass/Vol] 19 mg/dL Normal 9-23 [facility] Comment on above: Order Comment: PT FA STED 12 HRS Reason for Exam Essential hypertension Reason for Exam Vitamin B12 deficiency Reason for Exam Hypothyroidism, unspecified type Performed By: #### G LULS #### Point of Care testing , Lipid Panelon 02-14-2022 Cholesterol [Mass/Vol] 134 mg/dL Low 140-200 [facility] Comment on above: Order Comment: PT [...] in HDL [Mass/Vol] 44 mg/dL Normal 35-85 [facility] Comment on above: Order Comment: PT [...] HDL [Mass ratio] 3.0 {ratio} Normal <5.0 [facility] Comment on above: Order Comment: PT FA STED 12 HRS Reason for Exam Essential hypertension Reason for Exam Vitamin B12 deficiency Reason for Exam Hypothyroidism, unspecified type Performed By: #### G LULS #### Point of Care testing , LDL Cholesterol,Calculat ed 73 mg/dL Normal 0-100 [facility] Comment on above: Order Comment: PT [...] , Triglyceride w/Reflex 85 mg/dL Normal 35-149 [facility] Comment on above: Order Comment: PT [...] testing , VLDL CHOLESTEROL 17 mg/dL Normal [facility] Comment on above: Order Comment: PT FA STED 12 HRS Reason for Exam Essential hypertension Reason for Exam Vitamin B12 deficiency Reason for Exam Hypothyroidism, unspecified type Performed By: #### G LULS #### Point of Care testing , Thyroid Stimulating Hormoneo n 02-14-2022 TSH Qn 1.04 m[IU]/L Normal 0.45-5.33 [facility] Comment on above: Order Comment: PT FA STED 12 HRS Reason for Exam Essential hypertension Reason for Exam Vitamin B12 deficiency Reason for Exam Hypothyroidism, unspecified type Result Comment: PERF ORMED BY: [address] [place] [address] PATHOLOGIST NETWORK SECURITY OFFICER HEMANT CHÁVEZ M.D. Performed By: #### G WILLEM #### Point of Care testing , Thyroxine (T4) Totalon 02-14 T4 [Mass/Vol] 13.17 ug/dL High 5.39-11.82 [facility] Comment on above: Order Comment: PT FA STED 12 HRS Reason for Exam Essential hypertension Reason for Exam Vitamin B12 deficiency Reason for Exam Hypothyroidism, unspecified type Performed By: #### G LUKURT #### Point of Care testing , Vitamin B12on 02-14-2022 Cobalamin (Vitamin B12) [Mass/Vol] 292 pg/mL Normal 180-914 [facility] Comment on above: Order Comment: PT FA STED 12 HRS Reason for Exam Essential hypertension Reason for Exam Vitamin B12 deficiency Reason for Exam Hypothyroidism, unspecified type Performed By: #### G LUKURT #### Point of Care testing , Basic Metabolic Panelon 05-3 Calcium [Mass/Vol] 8.2 mg/dL Normal 8.2-10.2 [facility] Comment on above: Performed By: #### C BC, BMP #### [facility] [address] [place] [address] Chloride [Moles/Vol] 103 mmol/L Normal 95-114 [facility] Comment on above: Performed By: #### C BC, BMP #### [facility] [address] [place] [address] [place] CO2 [Moles/Vol] 27.2 mmol/L Normal 22.0-30.0 [facility] Comment on above: Performed By: #### C BC, BMP #### [facility] [address] Creatinine [Mass/Vol] 1.13 mg/dL High 0.44-1.03 [facility] Comment on above: Performed By: #### C BC, BMP #### [facility] [address] [place] [address] [place] Creatinine Clr Calc Pharmacy 59.74 [facility] Comment on above: Result Comment: PERF ORMED BY: [place] [address] PATHOLOGIST NETWORK SECURITY OFFICER HEMANT CHÁVEZ M.D. Performed By: #### C BC, BMP #### [address] Estimated GFR ( Roseline 58 [facility] Comment on above: Result Comment: GFR estimated reference range: According to KDOQI guidelines, <60 ml/min/1.73m2 is sufficient to diagnose a patient with chronic kidney disease. Performed By: #### C BC, BMP #### [address] Estimated GFR (Non- Am 48 [facility] Comment on above: Performed By: #### C BC, BMP #### [address] Glucose [Mass/Vol] 116 mg/dL High 70-100 [facility] Comment on above: Result Comment: [place] om Glucose Reference Range is dependent on time and content of last meal. Glucose of more than 200 mg/dL in a nonstressed, ambulatory subject supports the diagnosis of Diabetes Mellitus. ADA recommended reference range Performed By: #### C BC, BMP #### [address] Potassium [Moles/Vol] 3.2 mmol/L Low 3.5-5.1 [facility] Comment on above: Performed By: #### C BC, BMP #### [place] [address] [place] Sodium [Moles/Vol] 140 mmol/L Normal 136-146 [facility] Comment on above: Performed By: #### C BC, BMP #### [address] Urea nitrogen [Mass/Vol] 9 mg/dL Normal 9-23 [facility] Comment on above: Performed By: #### C BC, BMP #### [address] Complete Blood Count Auto Di ffon 09-06-2021 Basophils (Bld) [#/Vol] 0.0 10*3/uL Normal 0.0-0.2 [facility] Comment on above: Result Comment: PERF ORMED BY: [place] [address] PATHOLOGIST NETWORK SECURITY OFFICER HEMANT CHÁVEZ M.D. Performed By: #### C BC, BMP #### [address] Basophils/100 WBC (Bld) 0.1 % Normal . [facility] Comment on above: Performed By: #### C BC, BMP #### [address] Eosinophils (Bld) [#/Vol] 0.2 10*3/uL Normal 0.0-0.45 [facility] Comment on above: Performed By: #### C BC, BMP #### [address] Eosinophils/100 WBC (Bld) 2.3 % Normal . [facility] Comment on above: Performed By: #### C BC, BMP #### [address] Erythrocyte distribution width (RBC) [Ratio] 16.2 % High 11.9-15.3 [facility] Comment on above: Performed By: #### C BC, BMP #### [address] Hematocrit (Bld) [Volume fraction] 30.8 % Low 34.0-46.4 [facility] Comment on above: Performed By: #### C BC, BMP #### [address] Hemoglobin (Bld) [Mass/Vol] 9.8 g/dL Low 11.8-15.4 [facility] Comment on above: Performed By: #### C BC, BMP #### [place] [address] [place] Lymphocytes (Bld) [#/Vol] 1.8 10*3/uL Normal 1.00-4.8 [facility] Comment on above: Performed By: #### C BC, BMP #### [address] Lymphocytes/100 WBC (Bld) 18.5 % Normal . [facility] Comment on above: Performed By: #### C BC, BMP #### [address] MCH (RBC) [Entitic mass] 27.6 pg Normal 24.7-34.3 [facility] Comment on above: Performed By: #### C BC, BMP #### [address] MCV (RBC) [Entitic vol] 86.1 fL Normal 80-100 [facility] Comment on above: Performed By: #### C BC, BMP #### [address] Mean Corpuscular HGB Conc 32.0 g/dL Normal 32.0-35.0 [facility] Comment on above: Performed By: #### C BC, BMP #### [address] Monocytes (Bld) [#/Vol] 0.7 10*3/uL Normal 0.0-0.8 [facility] Comment on above: Performed By: #### C BC, BMP #### [address] Monocytes/100 WBC (Bld) 6.9 % Normal . [facility] Comment on above: Performed By: #### C BC, BMP #### [place] [address] [place] Neutrophils (Bld) [#/Vol] 7.2 10*3/uL Normal 1.8-7.7 [facility] Comment on above: Performed By: #### C BC, BMP #### [address] Neutrophils/100 WBC (Bld) 72.2 % Normal . [facility] Comment on above: Performed By: #### C BC, BMP #### [place] [address] [place] Nucleated RBC/100 WBC (Bld) [Ratio] 0.0 % Normal 0-0.5 [facility] Comment on above: Performed By: #### C BC, BMP #### [address] Platelet mean volume (Bld) [Entitic vol] 8.3 fL Normal 6.3-10.7 [facility] Comment on above: Performed By: #### C BC, BMP #### [address] Platelets (Bld) [#/Vol] 258 10*3/uL Normal 150-450 [facility] Comment on above: Performed By: #### C BC, BMP #### [address] RBC (Bld) [#/Vol] 3.57 10*6/uL Low 3.60-5.00 [facility] Comment on above: Performed By: #### C BC, BMP #### [address] WBC (Bld) [#/Vol] 9.9 10*3/uL Normal 4.5-11.0 [facility] Comment on above: Performed By: #### C BC, BMP #### [address] Glucose Poct Glucometerson 0 09-06-2021 Commemt1 Glu2: Cleaned Meter Normal [facility] Comment on above: Result Comment: PERF ORMED BY: [place] [address] PATHOLOGIST NETWORK SECURITY OFFICER HEMANT CHÁVEZ M.D. Performed By: #### C BC, BMP #### [address] Glucose [Mass/Vol] 126 mg/dL Normal [facility] Comment on above: Result Comment: [place] om Glucose Reference Range is dependent on time and content of last meal. Glucose of more than 200 mg/dL in a nonstressed, ambulatory subject supports the diagnosis of Diabetes Mellitus. Performed By: #### C BC, BMP #### [facility] [address] Commemt1 Glu2: Cleaned Meter Normal [facility] Comment on above: Result Comment: PERF ORMED BY: [place] [address] PATHOLOGIST NETWORK SECURITY OFFICER HEMANT CHÁVEZ M.D. Performed By: #### G LULS #### Point of Care testing , Glucose [Mass/Vol] 175 mg/dL Normal [facility] Comment on above: Result Comment: [place] om Glucose Reference Range is dependent on time and content of last meal. Glucose of more than 200 mg/dL in a nonstressed, ambulatory subject supports the diagnosis of Diabetes Mellitus. Performed By: #### G LULS #### Point of Care testing , Glucose [Mass/Vol] 103 mg/dL Normal [facility] Comment on above: Result Comment: [place] om Glucose Reference Range is dependent on time and content of last meal. Glucose of more than 200 mg/dL in a nonstressed, ambulatory subject supports the diagnosis of Diabetes Mellitus. PERFORMED BY: [place] [address] PATHOLOGIST NETWORK SECURITY OFFICER HEMANT CHÁVEZ M.D. Performed By: #### C BC, LACTIC, HS TROP, HEPATIC, BMP, LIPASE, BHOB, T4F, TSH3 #### [facility] [address] [place] [address] Glucose Poct Glucometerson 0 09-05-2021 Glucose [Mass/Vol] 150 mg/dL Normal [facility] Comment on above: Result Comment: [place] om Glucose Reference Range is dependent on time and content of last meal. Glucose of more than 200 mg/dL in a nonstressed, ambulatory subject supports the diagnosis of Diabetes Mellitus. PERFORMED BY: [place] [address] PATHOLOGIST NETWORK SECURITY OFFICER HEMANT CHÁVEZ M.D. Performed By: #### G LULS #### Point of Care testing , Glucose [Mass/Vol] 154 mg/dL Normal [facility] Comment on above: Result Comment: [place] Glucose Reference Range is dependent on time and content of last meal. Glucose of more than 200 mg/dL in a nonstressed, ambulatory subject supports the diagnosis of Diabetes Mellitus. PERFORMED BY: [place] [id number] PATHOLOGIST NETWORK SECURITY OFFICER HEMANT CHÁVEZ M.D. Performed By: #### G LULS #### Point of Care testing , Glucose [Mass/Vol] 145 mg/dL Normal [facility] Comment on above: Result Comment: [facility] Glucose Reference Range is dependent on time and content of last meal. Glucose of more than 200 mg/dL in a nonstressed, ambulatory subject supports the diagnosis of Diabetes Mellitus. PERFORMED BY: [place] [address] PATHOLOGIST NETWORK SECURITY OFFICER HEMANT CHÁVEZ M.D. Performed By: #### G LULS #### Point of Care testing , Glucose [Mass/Vol] 167 mg/dL Normal [facility] Comment on above: Result Comment: [facility] Glucose Reference Range is dependent on time and content of last meal. Glucose of more than 200 mg/dL in a nonstressed, ambulatory subject supports the diagnosis of Diabetes Mellitus. PERFORMED BY: [place] [id number] PATHOLOGIST NETWORK SECURITY OFFICER HEMANT CHÁVEZ M.D. Performed By: #### C BC, LACTIC, HS TROP, HEPATIC, BMP, LIPASE, BHOB, T4F, TSH3 #### [address] Basic Metabolic Panelon 05-2 Calcium [Mass/Vol] 8.2 mg/dL Normal 8.2-10.2 [facility] Comment on above: Performed By: #### C BC, BMP #### [address] [address] [place] Chloride [Moles/Vol] 110 mmol/L Normal 95-114 [facility] Comment on above: Performed By: #### C BC, BMP #### [facility] [address] CO2 [Moles/Vol] 25.2 mmol/L Normal 22.0-30.0 [facility] Comment on above: Performed By: #### C BC, BMP #### [address] Creatinine [Mass/Vol] 1.23 mg/dL High 0.44-1.03 [facility] Comment on above: Performed By: #### C BC, BMP #### [address] Creatinine Clr Calc Pharmacy 54.94 [facility] Comment on above: Result Comment: PERF ORMED BY: [place] [address] PATHOLOGIST NETWORK SECURITY OFFICER EHMANT CHÁVEZ M.D. Performed By: #### C BC, BMP #### [address] Estimated GFR ( Roseline 52 [facility] Comment on above: Result Comment: GFR estimated reference range: According to KDOQI guidelines, <60 ml/min/1.73m2 is sufficient to diagnose a patient with chronic kidney disease. Performed By: #### C BC, BMP #### [address] Estimated GFR (Non- Am 43 [facility] Comment on above: Performed By: #### C BC, BMP #### [address] Glucose [Mass/Vol] 136 mg/dL High 70-100 [facility] Comment on above: Result Comment: [place] Glucose Reference Range is dependent on time and content of last meal. Glucose of more than 200 mg/dL in a nonstressed, ambulatory subject supports the diagnosis of Diabetes Mellitus. ADA recommended reference range Performed By: #### C BC, BMP #### [address] Potassium [Moles/Vol] 3.3 mmol/L Low 3.5-5.1 [facility] Comment on above: Performed By: #### C BC, BMP #### [address] Sodium [Moles/Vol] 143 mmol/L Normal 136-146 [facility] Comment on above: Performed By: #### C BC, BMP #### [address] Urea nitrogen [Mass/Vol] 17 mg/dL Normal 9-23 [facility] Comment on above: Performed By: #### C BC, BMP #### [address] Complete Blood Count Auto Di ffon 09-04-2021 Basophils (Bld) [#/Vol] 0.0 10*3/uL Normal 0.0-0.2 [facility] Comment on above: Result Comment: PERF ORMED BY: [place] [address] PATHOLOGIST NETWORK SECURITY OFFICER HEMANT CHÁVEZ M.D. Performed By: #### C BC, BMP #### [address] Basophils/100 WBC (Bld) 0.1 % Normal . [facility] Comment on above: Performed By: #### C BC, BMP #### [address] Eosinophils (Bld) [#/Vol] 0.3 10*3/uL Normal 0.0-0.45 [facility] Comment on above: Performed By: #### C BC, BMP #### [place] [address] [place] Eosinophils/100 WBC (Bld) 3.3 % Normal . [facility] Comment on above: Performed By: #### C BC, BMP #### [address] Erythrocyte distribution width (RBC) [Ratio] 16.4 % High 11.9-15.3 [facility] Comment on above: Performed By: #### C BC, BMP #### [address] Hematocrit (Bld) [Volume fraction] 30.1 % Low 34.0-46.4 [facility] Comment on above: Performed By: #### C BC, BMP #### [address] Hemoglobin (Bld) [Mass/Vol] 9.5 g/dL Low 11.8-15.4 [facility] Comment on above: Performed By: #### C BC, BMP #### [address] Lymphocytes (Bld) [#/Vol] 1.1 10*3/uL Normal 1.00-4.8 [facility] Comment on above: Performed By: #### C BC, BMP #### [address] Lymphocytes/100 WBC (Bld) 13.8 % Normal . [facility] Comment on above: Performed By: #### C BC, BMP #### [address] MCH (RBC) [Entitic mass] 27.7 pg Normal 24.7-34.3 [facility] Comment on above: Performed By: #### C BC, BMP #### [address] MCV (RBC) [Entitic vol] 87.3 fL Normal 80-100 [facility] Comment on above: Performed By: #### C BC, BMP #### [address] Mean Corpuscular HGB Conc 31.7 g/dL Low 32.0-35.0 [facility] Comment on above: Performed By: #### C BC, BMP #### [address] Monocytes (Bld) [#/Vol] 0.6 10*3/uL Normal 0.0-0.8 [facility] Comment on above: Performed By: #### C BC, BMP #### [facility] [address] [place] [address] [place] Monocytes/100 WBC (Bld) 7.8 % Normal . [facility] Comment on above: Performed By: #### C BC, BMP #### [facility] [address] [place] [address] [place] Neutrophils (Bld) [#/Vol] 6.0 10*3/uL Normal 1.8-7.7 [facility] Comment on above: Performed By: #### C BC, BMP #### [facility] [address] Neutrophils/100 WBC (Bld) 75.0 % Normal . [facility] Comment on above: Performed By: #### C BC, BMP #### [facility] [address] [place] [address] [place] Nucleated RBC/100 WBC (Bld) [Ratio] 0.1 % Normal 0-0.5 [facility] Comment on above: Performed By: #### C BC, BMP #### [facility] [address] [place] [address] [place] Platelet mean volume (Bld) [Entitic vol] 8.0 fL Normal 6.3-10.7 [facility] Comment on above: Performed By: #### C BC, BMP #### [facility] [address] [place] [address] [place] Platelets (Bld) [#/Vol] 236 10*3/uL Normal 150-450 [facility] Comment on above: Performed By: #### C BC, BMP #### [facility] [address] [place] [address] [place] RBC (Bld) [#/Vol] 3.45 10*6/uL Low 3.60-5.00 [facility] Comment on above: Performed By: #### C BC, BMP #### [facility] [address] [place] [address] [place] WBC (Bld) [#/Vol] 8.0 10*3/uL Normal 4.5-11.0 [facility] Comment on above: Performed By: #### C BC, BMP #### [facility] [address] Glucose Poct Glucometerson 0 09-04-2021 Glucose [Mass/Vol] 131 mg/dL Normal [facility] Comment on above: Result Comment: [facility] Glucose Reference Range is dependent on time and content of last meal. Glucose of more than 200 mg/dL in a nonstressed, ambulatory subject supports the diagnosis of Diabetes Mellitus. PERFORMED BY: [place] [address] PATHOLOGIST NETWORK SECURITY OFFICER HEMANT CHÁVEZ M.D. Performed By: #### C BC, LACTIC, HS TROP, HEPATIC, BMP, LIPASE, BHOB, T4F, TSH3 #### [facility] [address] Commemt1 Glu2: Cleaned Meter [facility] Comment on above: Result Comment: PERF ORMED BY: [place] [address] PATHOLOGIST NETWORK SECURITY OFFICER HEMANT CHÁVEZ M.D. Performed By: #### G LULS #### Point of Care testing , Glucose [Mass/Vol] 170 mg/dL Normal [facility] Comment on above: Result Comment: [facility] Glucose Reference Range is dependent on time and content of last meal. Glucose of more than 200 mg/dL in a nonstressed, ambulatory subject supports the diagnosis of Diabetes Mellitus. Performed By: #### G LULS #### Point of Care testing , Commemt1 Glu2: Cleaned Meter [facility] Comment on above: Result Comment: PERF ORMED BY: [place] [address] PATHOLOGIST NETWORK SECURITY OFFICER HEMANT CHÁVEZ M.D. Performed By: #### G LULS #### Point of Care testing , Glucose [Mass/Vol] 141 mg/dL Normal [facility] Comment on above: Result Comment: [place] om Glucose Reference Range is dependent on time and content of last meal. Glucose of more than 200 mg/dL in a nonstressed, ambulatory subject supports the diagnosis of Diabetes Mellitus. Performed By: #### G LULS #### Point of Care testing , Commemt1 Glu2: Cleaned Meter Normal [facility] Comment on above: Result Comment: PERF ORMED BY: [facility] [address] [place] [id number] PATHOLOGIST NETWORK SECURITY OFFICER HEMANT CHÁVEZ M.D. Performed By: #### G LULS #### Point of Care testing , Glucose [Mass/Vol] 114 mg/dL Normal [facility] Comment on above: Result Comment: [place] om Glucose Reference Range is dependent on time and content of last meal. Glucose of more than 200 mg/dL in a nonstressed, ambulatory subject supports the diagnosis of Diabetes Mellitus. Performed By: #### G LULS #### Point of Care testing , Basic Metabolic Panelon 08-08 Calcium [Mass/Vol] 8.4 mg/dL Normal 8.2-10.2 [facility] Comment on above: Performed By: #### G LULS #### Point of Care testing , Chloride [Moles/Vol] 111 mmol/L Normal 95-114 [facility] Comment on above: Performed By: #### G LULS #### Point of Care testing , CO2 [Moles/Vol] 26.2 mmol/L Normal 22.0-30.0 [facility] Comment on above: Performed By: #### G LULS #### Point of Care testing , Creatinine [Mass/Vol] 1.37 mg/dL High 0.44-1.03 [facility] Comment on above: Performed By: #### G LULS #### Point of Care testing , Creatinine Clr Calc Pharmacy 48.64 Normal [facility] Comment on above: Result Comment: PERF ORMED BY: [facility] [address] [place] [id number] PATHOLOGIST NETWORK SECURITY OFFICER HEMANT CHÁVEZ M.D. Performed By: #### G LULS #### Point of Care testing , Estimated GFR ( Roseline 46 Normal [facility] Comment on above: Result Comment: GFR estimated reference range: According to KDOQI guidelines, <60 ml/min/1.73m2 is sufficient to diagnose a patient with chronic kidney disease. Performed By: #### G LULS #### Point of Care testing , Estimated GFR (Non- Am 38 Normal [facility] Comment on above: Performed By: #### G LULS #### Point of Care testing , Glucose [Mass/Vol] 145 mg/dL High 70-100 [facility] Comment on above: Result Comment: [place] Glucose Reference Range is dependent on time and content of last meal. Glucose of more than 200 mg/dL in a nonstressed, ambulatory subject supports the diagnosis of Diabetes Mellitus. ADA recommended reference range Performed By: #### G STEVIELS #### Point of Care testing , Potassium [Moles/Vol] 3.2 mmol/L Low 3.5-5.1 [facility] Comment on above: Performed By: #### G LULS #### Point of Care testing , Sodium [Moles/Vol] 146 mmol/L Normal 136-146 [facility] Comment on above: Performed By: #### G LULS #### Point of Care testing , Urea nitrogen [Mass/Vol] 23 mg/dL Normal 9-23 [facility] Comment on above: Performed By: #### G LULS #### Point of Care testing , Complete Blood Count Auto Di ffon 09-03-2021 Basophils (Bld) [#/Vol] 0.0 10*3/uL Normal 0.0-0.2 [facility] Comment on above: Result Comment: PERF ORMED BY: [facility] [address] [place] [address] PATHOLOGIST NETWORK SECURITY OFFICER HEMANT CHÁVEZ M.D. Performed By: #### C BC, LACTIC, HS TROP, HEPATIC, BMP, LIPASE, BHOB, T4F, TSH3 #### [facility] [address] [place] [address] [place] Basophils/100 WBC (Bld) 0.1 % Normal . [facility] Comment on above: Performed By: #### C BC, LACTIC, HS TROP, HEPATIC, BMP, LIPASE, BHOB, T4F, TSH3 #### [address] Eosinophils (Bld) [#/Vol] 0.3 10*3/uL Normal 0.0-0.45 [facility] Comment on above: Performed By: #### C BC, LACTIC, HS TROP, HEPATIC, BMP, LIPASE, BHOB, T4F, TSH3 #### [address] Eosinophils/100 WBC (Bld) 3.6 % Normal . [facility] Comment on above: Performed By: #### C BC, LACTIC, HS TROP, HEPATIC, BMP, LIPASE, BHOB, T4F, TSH3 #### [address] Erythrocyte distribution width (RBC) [Ratio] 16.2 % High 11.9-15.3 [facility] Comment on above: Performed By: #### C BC, LACTIC, HS TROP, HEPATIC, BMP, LIPASE, BHOB, T4F, TSH3 #### [address] Hematocrit (Bld) [Volume fraction] 31.9 % Low 34.0-46.4 [facility] Comment on above: Performed By: #### C BC, LACTIC, HS TROP, HEPATIC, BMP, LIPASE, BHOB, T4F, TSH3 #### [address] Hemoglobin (Bld) [Mass/Vol] 10.2 g/dL Low 11.8-15.4 [facility] Comment on above: Performed By: #### C BC, LACTIC, HS TROP, HEPATIC, BMP, LIPASE, BHOB, T4F, TSH3 #### [address] Lymphocytes (Bld) [#/Vol] 1.0 10*3/uL Normal 1.00-4.8 [facility] Comment on above: Performed By: #### C BC, LACTIC, HS TROP, HEPATIC, BMP, LIPASE, BHOB, T4F, TSH3 #### [address] Lymphocytes/100 WBC (Bld) 10.4 % Normal . [facility] Comment on above: Performed By: #### C BC, LACTIC, HS TROP, HEPATIC, BMP, LIPASE, BHOB, T4F, TSH3 #### [address] MCH (RBC) [Entitic mass] 28.0 pg Normal 24.7-34.3 [facility] Comment on above: Performed By: #### C BC, LACTIC, HS TROP, HEPATIC, BMP, LIPASE, BHOB, T4F, TSH3 #### [address] MCV (RBC) [Entitic vol] 87.6 fL Normal 80-100 [facility] Comment on above: Performed By: #### C BC, LACTIC, HS TROP, HEPATIC, BMP, LIPASE, BHOB, T4F, TSH3 #### [address] Mean Corpuscular HGB Conc 31.9 g/dL Low 32.0-35.0 [facility] Comment on above: Performed By: #### C BC, LACTIC, HS TROP, HEPATIC, BMP, LIPASE, BHOB, T4F, TSH3 #### [address] Monocytes (Bld) [#/Vol] 0.7 10*3/uL Normal 0.0-0.8 [facility] Comment on above: Performed By: #### C BC, LACTIC, HS TROP, HEPATIC, BMP, LIPASE, BHOB, T4F, TSH3 #### [address] Monocytes/100 WBC (Bld) 7.5 % Normal . [facility] Comment on above: Performed By: #### C BC, LACTIC, HS TROP, HEPATIC, BMP, LIPASE, BHOB, T4F, TSH3 #### [place] [address] Neutrophils (Bld) [#/Vol] 7.2 10*3/uL Normal 1.8-7.7 [facility] Comment on above: Performed By: #### C BC, LACTIC, HS TROP, HEPATIC, BMP, LIPASE, BHOB, T4F, TSH3 #### [address] Neutrophils/100 WBC (Bld) 78.4 % Normal . [facility] Comment on above: Performed By: #### C BC, LACTIC, HS TROP, HEPATIC, BMP, LIPASE, BHOB, T4F, TSH3 #### [address] Nucleated RBC/100 WBC (Bld) [Ratio] 0.0 % Normal 0-0.5 [facility] Comment on above: Performed By: #### C BC, LACTIC, HS TROP, HEPATIC, BMP, LIPASE, BHOB, T4F, TSH3 #### [address] Platelet mean volume (Bld) [Entitic vol] 8.2 fL Normal 6.3-10.7 [facility] Comment on above: Performed By: #### C BC, LACTIC, HS TROP, HEPATIC, BMP, LIPASE, BHOB, T4F, TSH3 #### [address] Platelets (Bld) [#/Vol] 273 10*3/uL Normal 150-450 [facility] Comment on above: Performed By: #### C BC, LACTIC, HS TROP, HEPATIC, BMP, LIPASE, BHOB, T4F, TSH3 #### [address] RBC (Bld) [#/Vol] 3.64 10*6/uL Normal 3.60-5.00 [facility] Comment on above: Performed By: #### C BC, LACTIC, HS TROP, HEPATIC, BMP, LIPASE, BHOB, T4F, TSH3 #### [place] [address] [place] WBC (Bld) [#/Vol] 9.1 10*3/uL Normal 4.5-11.0 [facility] Comment on above: Performed By: #### C BC, LACTIC, HS TROP, HEPATIC, BMP, LIPASE, BHOB, T4F, TSH3 #### [address] Glucose Poct Glucometerson 0 09-03-2021 Commemt1 Glu2: Cleaned Meter [facility] Comment on above: Result Comment: PERF ORMED BY: [place] [address] PATHOLOGIST NETWORK SECURITY OFFICER HEMANT CHÁVEZ M.D. Performed By: #### G LULS #### Point of Care testing , Glucose [Mass/Vol] 152 mg/dL Normal [facility] Comment on above: Result Comment: [place] om Glucose Reference Range is dependent on time and content of last meal. Glucose of more than 200 mg/dL in a nonstressed, ambulatory subject supports the diagnosis of Diabetes Mellitus. Performed By: #### G LULS #### Point of Care testing , Commemt1 Glu2: Cleaned Meter [facility] Comment on above: Result Comment: PERF ORMED BY: [place] [address] PATHOLOGIST NETWORK SECURITY OFFICER HEMANT CHÁVEZ M.D. Performed By: #### G LULS #### Point of Care testing , Glucose [Mass/Vol] 154 mg/dL Normal [facility] Comment on above: Result Comment: [place] om Glucose Reference Range is dependent on time and content of last meal. Glucose of more than 200 mg/dL in a nonstressed, ambulatory subject supports the diagnosis of Diabetes Mellitus. Performed By: #### G LULS #### Point of Care testing , Commemt1 Glu2: Cleaned Meter [facility] Comment on above: Result Comment: PERF ORMED BY: [place] [address] PATHOLOGIST NETWORK SECURITY OFFICER HEMANT CHÁVEZ M.D. Performed By: #### G LULS #### Point of Care testing , Glucose [Mass/Vol] 128 mg/dL Normal [facility] Comment on above: Result Comment: [place] om Glucose Reference Range is dependent on time and content of last meal. Glucose of more than 200 mg/dL in a nonstressed, ambulatory subject supports the diagnosis of Diabetes Mellitus. Performed By: #### G LULS #### Point of Care testing , Glucose [Mass/Vol] 141 mg/dL Normal [facility] Comment on above: Result Comment: [place] om Glucose Reference Range is dependent on time and content of last meal. Glucose of more than 200 mg/dL in a nonstressed, ambulatory subject supports the diagnosis of Diabetes Mellitus. PERFORMED BY: [facility] [address] [place] [address] PATHOLOGIST NETWORK SECURITY OFFICER HEMANT CHÁVEZ M.D. Performed By: #### G LULS #### Point of Care testing , A1C with Estimated Average Stan smallisabel 09-02-2021 Glucose [Mass/Vol] 126 mg/dL Normal [facility] Comment on above: Result Comment: PERF ORMED BY: [facility] [address] [place] [address] PATHOLOGIST NETWORK SECURITY OFFICER HEMANT CHÁVEZ M.D. Performed By: #### G LULS #### Point of Care testing , HbA1c (Bld) [Mass fraction] 6.0 % High 4.3-5.6 [facility] Comment on above: Result Comment: Incr eased risk for diabetes: 5.7 - 6.4 diabetes: >6.4 glycemic control for adults with diabetes: <7.0 Performed By: #### G LULS #### Point of Care testing , Basic Metabolic Panelon 08-08 Calcium [Mass/Vol] 8.8 mg/dL Normal 8.2-10.2 [facility] Comment on above: Performed By: #### G LULS #### Point of Care testing , Chloride [Moles/Vol] 113 mmol/L Normal 95-114 [facility] Comment on above: Performed By: #### G LULS #### Point of Care testing , CO2 [Moles/Vol] 20.6 mmol/L Low 22.0-30.0 [facility] Comment on above: Performed By: #### G STEVIELS #### Point of Care testing , Creatinine [Mass/Vol] 1.26 mg/dL High 0.44-1.03 [facility] Comment on above: Performed By: #### G STEVIELS #### Point of Care testing , Creatinine Clr Calc Pharmacy 51.25 [facility] Comment on above: Performed By: #### G LULS #### Point of Care testing , Estimated GFR ( Roseline 51 [facility] Comment on above: Result Comment: GFR estimated reference range: According to KDOQI guidelines, <60 ml/min/1.73m2 is sufficient to diagnose a patient with chronic kidney disease. Performed By: #### G STEVIELS #### Point of Care testing , Estimated GFR (Non- Am 42 [facility] Comment on above: Performed By: #### G STEVIELS #### Point of Care testing , Glucose [Mass/Vol] 112 mg/dL High 70-100 [facility] Comment on above: Result Comment: [facility] Glucose Reference Range is dependent on time and content of last meal. Glucose of more than 200 mg/dL in a nonstressed, ambulatory subject supports the diagnosis of Diabetes Mellitus. ADA recommended reference range Performed By: #### G LULS #### Point of Care testing , Potassium [Moles/Vol] 3.7 mmol/L Normal 3.5-5.1 [facility] Comment on above: Performed By: #### G STEVIELS #### Point of Care testing , Sodium [Moles/Vol] 150 mmol/L High 136-146 [facility] Comment on above: Performed By: #### G LULS #### Point of Care testing , Urea nitrogen [Mass/Vol] 31 mg/dL High 9-23 [facility] Comment on above: Performed By: #### G STEVIELS #### Point of Care testing , Complete Blood Count Auto Di ffon 09-02-2021 Basophils (Bld) [#/Vol] 0.0 10*3/uL Normal 0.0-0.2 [facility] Comment on above: Result Comment: PERF ORMED BY: [facility] [place] [address] PATHOLOGIST NETWORK SECURITY OFFICER HEMANT CHÁVEZ M.D. Performed By: #### G LULS #### Point of Care testing , Basophils/100 WBC (Bld) 0.1 % Normal . [facility] Comment on above: Performed By: #### G LULS #### Point of Care testing , Eosinophils (Bld) [#/Vol] 0.2 10*3/uL Normal 0.0-0.45 [facility] Comment on above: Performed By: #### G LULS #### Point of Care testing , Eosinophils/100 WBC (Bld) 1.5 % Normal . [facility] Comment on above: Performed By: #### G STEVIELS #### Point of Care testing , Erythrocyte distribution width (RBC) [Ratio] 16.3 % High 11.9-15.3 [facility] Comment on above: Performed By: #### G LULS #### Point of Care testing , Hematocrit (Bld) [Volume fraction] 39.3 % Normal 34.0-46.4 [facility] Comment on above: Performed By: #### G LULS #### Point of Care testing , Hemoglobin (Bld) [Mass/Vol] 12.2 g/dL Normal 11.8-15.4 [facility] Comment on above: Performed By: #### G LULS #### Point of Care testing , Lymphocytes (Bld) [#/Vol] 1.1 10*3/uL Normal 1.00-4.8 [facility] Comment on above: Performed By: #### G LULS #### Point of Care testing , Lymphocytes/100 WBC (Bld) 9.0 % Normal . [facility] Comment on above: Performed By: #### G LULS #### Point of Care testing , MCH (RBC) [Entitic mass] 27.5 pg Normal 24.7-34.3 [facility] Comment on above: Performed By: #### Stan BANGURA #### Point of Care testing , MCV (RBC) [Entitic vol] 88.2 fL Normal 80-100 [facility] Comment on above: Performed By: #### Stan BANGURA #### Point of Care testing , Mean Corpuscular HGB Conc 31.2 g/dL Low 32.0-35.0 [facility] Comment on above: Performed By: #### Stan BANGURA #### Point of Care testing , Monocytes (Bld) [#/Vol] 1.0 10*3/uL High 0.0-0.8 [facility] Comment on above: Performed By: #### Stan BANGURA #### Point of Care testing , Monocytes/100 WBC (Bld) 8.0 % Normal . [facility] Comment on above: Performed By: #### Stan BANGURA #### Point of Care testing , Neutrophils (Bld) [#/Vol] 9.9 10*3/uL High 1.8-7.7 [facility] Comment on above: Performed By: #### Stan BANGURA #### Point of Care testing , Neutrophils/100 WBC (Bld) 81.4 % Normal . [facility] Comment on above: Performed By: #### Stan BANGURA #### Point of Care testing , Nucleated RBC/100 WBC (Bld) [Ratio] 0.1 % Normal 0-0.5 [facility] Comment on above: Performed By: #### Stan BANGURA #### Point of Care testing , Platelet mean volume (Bld) [Entitic vol] 8.0 fL Normal 6.3-10.7 [facility] Comment on above: Performed By: #### Stan BANGURA #### Point of Care testing , Platelets (Bld) [#/Vol] 291 10*3/uL Normal 150-450 [facility] Comment on above: Performed By: #### Stan BANGURA #### Point of Care testing , RBC (Bld) [#/Vol] 4.45 10*6/uL Normal 3.60-5.00 [facility] Comment on above: Performed By: #### G LULS #### Point of Care testing , WBC (Bld) [#/Vol] 12.1 10*3/uL High 4.5-11.0 [facility] Comment on above: Performed By: #### G LULS #### Point of Care testing , Glucose Poct Glucometerson 0 09-02-2021 Glucose [Mass/Vol] 124 mg/dL Normal [facility] Comment on above: Result Comment: [place] Glucose Reference Range is dependent on time and content of last meal. Glucose of more than 200 mg/dL in a nonstressed, ambulatory subject supports the diagnosis of Diabetes Mellitus. PERFORMED BY: [address] [place] [id number] PATHOLOGIST NETWORK SECURITY OFFICER HEMANT CHÁVEZ M.D. Performed By: #### G LULS #### Point of Care testing , Glucose [Mass/Vol] 130 mg/dL Normal [facility] Comment on above: Result Comment: [facility] Glucose Reference Range is dependent on time and content of last meal. Glucose of more than 200 mg/dL in a nonstressed, ambulatory subject supports the diagnosis of Diabetes Mellitus. PERFORMED BY: [address] [place] [address] PATHOLOGIST NETWORK SECURITY OFFICER HEMANT CHÁVEZ M.D. Performed By: #### G LULS #### Point of Care testing , Commemt1 Glu2: Cleaned Meter [facility] Comment on above: Result Comment: PERF ORMED BY: [facility] [address] [place] [address] PATHOLOGIST NETWORK SECURITY OFFICER HEMANT CHÁVEZ M.D. Performed By: #### G LULS #### Point of Care testing , Glucose [Mass/Vol] 131 mg/dL Normal [facility] Comment on above: Result Comment: [place] Glucose Reference Range is dependent on time and content of last meal. Glucose of more than 200 mg/dL in a nonstressed, ambulatory subject supports the diagnosis of Diabetes Mellitus. Performed By: #### G LULS #### Point of Care testing , Commemt1 Glu2: Cleaned Meter [facility] Comment on above: Result Comment: PERF ORMED BY: [place] [address] PATHOLOGIST NETWORK SECURITY OFFICER HEMANT CHÁVEZ M.D. Performed By: #### C BC, BMP #### [address] Glucose [Mass/Vol] 107 mg/dL Normal [facility] Comment on above: Result Comment: [place] Glucose Reference Range is dependent on time and content of last meal. Glucose of more than 200 mg/dL in a nonstressed, ambulatory subject supports the diagnosis of Diabetes Mellitus. Performed By: #### C BC, BMP #### [address] Thyroid Stimulating Hormoneo n 09-02-2021 TSH Qn 7.55 m[IU]/L High 0.45-5.33 [facility] Comment on above: Performed By: #### G LULS #### Point of Care testing , Troponin I High Sensitivityo n 09-02-2021 Troponin I High Sensitivity 31 pg/mL High 0-15 [facility] Comment on above: Result Comment: PERF ORMED BY: [place] [address] PATHOLOGIST NETWORK SECURITY OFFICER HEMANT CHÁVEZ M.D. Performed By: #### G LULS #### Point of Care testing , Vit. B12/Folate Profileon Cobalamin (Vitamin B12) [Mass/Vol] 187 pg/mL Normal 180-914 [facility] Comment on above: Performed By: #### G LULS #### Point of Care testing , Folate 9.3 ng/mL Normal >5.9 [facility] Comment on above: Result Comment: Marjorie te reference range: >5.9 ng/ml The WHO technical consultation on folate and vitamin b12 deficiencies has determined that folate concentrations less than 4 ng/ml are considered deficient. Performed By: #### G LULS #### Point of Care testing , Vitamin D 25 Hydroxy Totalon 09-02-2021 Vitamin D 25 Hydroxy Total 16.6 ng/mL Low 30-100 [facility] Comment on above: Result Comment: MIHAELA MIN D STATUS 25(OH)VITAMIN D RANGE (ng/mL) Deficient <20 Insufficient 20 to <30 Sufficient 30 to 100 Reference: Jayce MF,Arnoldo NC, Hossein DOMINIQUE, et al. Evaluation,treatment, and prevention of vitamin D deficiency; an Endocrine Society clinical practice guideline. JCEM. 2010; 96(7):1911-30. PERFORMED BY: [facility] [address] [address] PATHOLOGIST NETWORK SECURITY OFFICER HEMANT CHÁVEZ M.D. Performed By: #### G LULS #### Point of Care testing , Basic Metabolic Panelon 08-08 Calcium [Mass/Vol] 8.8 mg/dL Normal 8.2-10.2 [facility] Comment on above: Performed By: #### G LULS #### Point of Care testing , Chloride [Moles/Vol] 106 mmol/L Normal 95-114 [facility] Comment on above: Performed By: #### G LULS #### Point of Care testing , CO2 [Moles/Vol] 23.9 mmol/L Normal 22.0-30.0 [facility] Comment on above: Performed By: #### G LULS #### Point of Care testing , Creatinine [Mass/Vol] 1.62 mg/dL High 0.44-1.03 [facility] Comment on above: Performed By: #### G LULS #### Point of Care testing , Creatinine Clr Calc Pharmacy 39.63 [facility] Comment on above: Performed By: #### G LULS #### Point of Care testing , Estimated GFR ( Roseline 38 [facility] Comment on above: Result Comment: GFR estimated reference range: According to KDOQI guidelines, <60 ml/min/1.73m2 is sufficient to diagnose a patient with chronic kidney disease. Performed By: #### G LULS #### Point of Care testing , Estimated GFR (Non- Am 32 [facility] Comment on above: Performed By: #### G LULS #### Point of Care testing , Glucose [Mass/Vol] 158 mg/dL High 70-100 [facility] Comment on above: Result Comment: [place] Glucose Reference Range is dependent on time and content of last meal. Glucose of more than 200 mg/dL in a nonstressed, ambulatory subject supports the diagnosis of Diabetes Mellitus. ADA recommended reference range Performed By: #### G LULS #### Point of Care testing , Potassium [Moles/Vol] 3.1 mmol/L Low 3.5-5.1 [facility] Comment on above: Performed By: #### G LULS #### Point of Care testing , Sodium [Moles/Vol] 146 mmol/L Normal 136-146 [facility] Comment on above: Performed By: #### G LULS #### Point of Care testing , Urea nitrogen [Mass/Vol] 41 mg/dL High 9-23 [facility] Comment on above: Performed By: #### G LULS #### Point of Care testing , Beta Hydroxybuterateon 09-01 Beta Hydroxybuterate 2.73 mmol/L High 0.05-0.27 [facility] Comment on above: Performed By: #### [...] developed and its performance characteristic determined by [employer] and validated at [facility]. This test has not been FDA cleared [...] for SARS Antigen by JW PERFORMED BY: [place] [address] [place] [address] PATHOLOGIST NETWORK SECURITY OFFICER HEMANT CHÁVEZ M.D. Normal [facility] Comment on above: Performed By: #### G LULS #### Point of Care testing , COVID-19 [facility] 09-01-2021 SARS-CoV-2 (COVID-19) RNA NAILA+probe Ql (Unsp spec) Negative Normal Negative [facility] Comment on above: Order Comment: Healt hcare Worker?: Y Result Comment: Testing for SARS-CoV-2 by RT-PCR This test was developed and its performance characteristics determined by [employer]) and validated at the [facility]. This test has not been FDA cleared [...] is terminated or revoked sooner. PERFORMED BY: [place] [address] PATHOLOGIST NETWORK SECURITY OFFICER HEMANT CHÁVEZ M.D. Performed By: #### G WILLEM #### Point of Care testing , CT abdomen pelvis w conon CT abdomen pelvis w con [facility] [place] [address] [place], [place] [id number] CT Scan Report Signed Patient: Jeanmarie Garcia MR#: [id number] 757 : 1950 Acct:[id number] Age/Sex: 71 / F ADM Date: 09/01/21 Loc: ER Room: Type: [facility] ER Attending Dr: Ordering Provider: Delon Bahena [...] Gerson White M.D.09/01/2021 2:24 PM Dictation Location: RADIO--13 Transcribed By: JEANNIE 09/01/21 1424 Dictated By: Gerson White DO 09/01/21 1413 Signed By: 09/01/21 14[address] [facility] [address] head/brain wo conon 09-01 CT head/brain wo con [facility] [place] [address] [place] [address] CT Scan Report Signed Patient: Jeanmarie Garcia MR#: [id number] : 1950 Acct:[id number] Age/Sex: 71 / F ADM Date: 09/01/21 Loc: Room: [address] [place] [address] Type: ADM IN Attending Dr: Elizabet Wilson [...] Perez Jr., M.D.09/01/2021 4:50 PM Dictation Location: RADIO--06 Transcribed By: JEANNIE 09/01/21 1650 Dictated By: Kana Perez Jr, MD 09/01/21 1645 Signed By: 09/01/21 1650 Normal [facility] Complete Blood Count Auto Di ffon 09-01-2021 Basophils (Bld) [#/Vol] 0.0 10*3/uL Normal 0.0-0.2 [facility] Comment on above: Result Comment: PERF ORMED BY: [place] [address] PATHOLOGIST NETWORK SECURITY OFFICER HEMANT CHÁVEZ M.D. Performed By: #### C BC, LACTIC, HS TROP, HEPATIC, BMP, LIPASE, BHOB, T4F, TSH3 #### [address] Basophils/100 WBC (Bld) 0.3 % Normal . [facility] Comment on above: Performed By: #### C BC, LACTIC, HS TROP, HEPATIC, BMP, LIPASE, BHOB, T4F, TSH3 #### [address] Eosinophils (Bld) [#/Vol] 0.0 10*3/uL Normal 0.0-0.45 [facility] Comment on above: Performed By: #### C BC, LACTIC, HS TROP, HEPATIC, BMP, LIPASE, BHOB, T4F, TSH3 #### [address] Eosinophils/100 WBC (Bld) 0.1 % Normal . [facility] Comment on above: Performed By: #### C BC, LACTIC, HS TROP, HEPATIC, BMP, LIPASE, BHOB, T4F, TSH3 #### [address] Erythrocyte distribution width (RBC) [Ratio] 16.1 % High 11.9-15.3 [facility] Comment on above: Performed By: #### C BC, LACTIC, HS TROP, HEPATIC, BMP, LIPASE, BHOB, T4F, TSH3 #### [address] Hematocrit (Bld) [Volume fraction] 37.3 % Normal 34.0-46.4 [facility] Comment on above: Performed By: #### C BC, LACTIC, HS TROP, HEPATIC, BMP, LIPASE, BHOB, T4F, TSH3 #### [address] Hemoglobin (Bld) [Mass/Vol] 11.7 g/dL Low 11.8-15.4 [facility] Comment on above: Performed By: #### C BC, LACTIC, HS TROP, HEPATIC, BMP, LIPASE, BHOB, T4F, TSH3 #### [address] Lymphocytes (Bld) [#/Vol] 1.5 10*3/uL Normal 1.00-4.8 [facility] Comment on above: Performed By: #### C BC, LACTIC, HS TROP, HEPATIC, BMP, LIPASE, BHOB, T4F, TSH3 #### [address] Lymphocytes/100 WBC (Bld) 9.1 % Normal . [facility] Comment on above: Performed By: #### C BC, LACTIC, HS TROP, HEPATIC, BMP, LIPASE, BHOB, T4F, TSH3 #### [address] MCH (RBC) [Entitic mass] 27.4 pg Normal 24.7-34.3 [facility] Comment on above: Performed By: #### C BC, LACTIC, HS TROP, HEPATIC, BMP, LIPASE, BHOB, T4F, TSH3 #### [address] MCV (RBC) [Entitic vol] 87.3 fL Normal 80-100 [facility] Comment on above: Performed By: #### C BC, LACTIC, HS TROP, HEPATIC, BMP, LIPASE, BHOB, T4F, TSH3 #### [address] Mean Corpuscular HGB Conc 31.3 g/dL Low 32.0-35.0 [facility] Comment on above: Performed By: #### C BC, LACTIC, HS TROP, HEPATIC, BMP, LIPASE, BHOB, T4F, TSH3 #### [address] Monocytes (Bld) [#/Vol] 1.4 10*3/uL High 0.0-0.8 [facility] Comment on above: Performed By: #### C BC, LACTIC, HS TROP, HEPATIC, BMP, LIPASE, BHOB, T4F, TSH3 #### [address] Monocytes/100 WBC (Bld) 8.6 % Normal . [facility] Comment on above: Performed By: #### C BC, LACTIC, HS TROP, HEPATIC, BMP, LIPASE, BHOB, T4F, TSH3 #### [address] Neutrophils (Bld) [#/Vol] 13.2 10*3/uL High 1.8-7.7 [facility] Comment on above: Performed By: #### C BC, LACTIC, HS TROP, HEPATIC, BMP, LIPASE, BHOB, T4F, TSH3 #### [address] Neutrophils/100 WBC (Bld) 81.9 % Normal . [facility] Comment on above: Performed By: #### C BC, LACTIC, HS TROP, HEPATIC, BMP, LIPASE, BHOB, T4F, TSH3 #### [address] Nucleated RBC/100 WBC (Bld) [Ratio] 0.0 % Normal 0-0.5 [facility] Comment on above: Performed By: #### C BC, LACTIC, HS TROP, HEPATIC, BMP, LIPASE, BHOB, T4F, TSH3 #### [address] Platelet mean volume (Bld) [Entitic vol] 7.9 fL Normal 6.3-10.7 [facility] Comment on above: Performed By: #### C BC, LACTIC, HS TROP, HEPATIC, BMP, LIPASE, BHOB, T4F, TSH3 #### [facility] [address] Platelets (Bld) [#/Vol] 317 10*3/uL Normal 150-450 [facility] Comment on above: Performed By: #### C BC, LACTIC, HS TROP, HEPATIC, BMP, LIPASE, BHOB, T4F, TSH3 #### [facility] [address] RBC (Bld) [#/Vol] 4.27 10*6/uL Normal 3.60-5.00 [facility] Comment on above: Performed By: #### C BC, LACTIC, HS TROP, HEPATIC, BMP, LIPASE, BHOB, T4F, TSH3 #### [facility] [address] [place] [address] WBC (Bld) [#/Vol] 16.1 10*3/uL High 4.5-11.0 [facility] Comment on above: Performed By: #### C BC, LACTIC, HS TROP, HEPATIC, BMP, LIPASE, BHOB, T4F, TSH3 #### [address] Dipstick and Microscopicon 0 09-01-2021 Bacteria,Urine None Seen Normal None Seen [facility] Comment on above: Order Comment: Name Collection Type:: Straight Catheter Performed By: #### C BC, BMP #### [address] Hyaline Casts,Urine 20-49 High 0-1 [facility] Comment on above: Order Comment: Name Collection Type:: Straight Catheter Performed By: #### C BC, BMP #### [address] Other Casts,Urine None Seen Normal None Seen [facility] Comment on above: Order Comment: Name Collection Type:: Straight Catheter Performed By: #### C BC, BMP #### [address] RBC,Urine 3-4 Normal 0-4 [facility] Comment on above: Order Comment: Name Collection Type:: Straight Catheter Performed By: #### C BC, BMP #### [facility] [address] [place] [id number] [place] Renal Epithelial Cells,Urine None Seen Normal 0-1 [facility] Comment on above: Order Comment: Name Collection Type:: Straight Catheter Performed By: #### C BC, BMP #### [facility] [address] [place] [address] Squamous Epithelial Cell,Urine 20-30 High 0-2 [facility] Comment on above: Order Comment: Name Collection Type:: Straight Catheter Performed By: #### C BC, BMP #### [facility] [address] [place] [address] [place] WBC,Urine 10-19 High 0-4 [facility] Comment on above: Order Comment: Name Collection Type:: Straight Catheter Performed By: #### C BC, BMP #### [facility] [address] [place] [address] Yeast,Urine None Seen Normal None Seen [facility] Comment on above: Order Comment: Name Collection Type:: Straight Catheter Result Comment: PERF ORMED BY: [place] [address] PATHOLOGIST NETWORK SECURITY OFFICER HEMANT CHÁVEZ M.D. Performed By: #### C BC, BMP #### [address] ECG 12 lead ECGon 09-01-2021 ECG 12 lead ECG [facility] Main [place] [address] [place] [address] Electrocardiograph Report Signed Patient: Jeanmarie Garcia MR#: [id number] 757 : 1950 Acct:[id number] Age/Sex: 71 / F ADM Date: 09/01/21 Loc: Room: [address] [place] [address] Type: DIS IN Attending Dr: Martin Arevalo [...] 470 ms Confirmed by Delon Bahena DO ([id number]) on 09/01/2021 7:47:06 PM Referred By: Electronically Signed By:Delon Bahena DO Transcribed By: MUS Signed By Deoln Bahena DO 09/01 [facility] Free T4 (Free Thyroxine)on 0 09-01-2021 Free T4 [Mass/Vol] 0.76 ng/dL Normal 0.61-1.12 [facility] Comment on above: Performed By: #### G LULS #### Point of Care testing , Glucose Poct Glucometerson 0 09-01-2021 Commemt1 Glu2: Cleaned Meter [facility] Comment on above: Result Comment: PERF ORMED BY: [facility] [address] [place] [address] PATHOLOGIST NETWORK SECURITY OFFICER HEMANT CHÁVEZ M.D. Performed By: #### G LULS #### Point of Care testing , Glucose [Mass/Vol] 128 mg/dL Normal [facility] Comment on above: Result Comment: [place] Glucose Reference Range is dependent on time and content of last meal. Glucose of more than 200 mg/dL in a nonstressed, ambulatory subject supports the diagnosis of Diabetes Mellitus. Performed By: #### G LULS #### Point of Care testing , Hepatic Panelon 09-01-2021 Albumin [Mass/Vol] 2.8 g/dL Low 3.2-5.5 [facility] Comment on above: Performed By: #### G LULS #### Point of Care testing , Albumin/Globulin [Mass ratio] 0.5 {ratio} [facility] Comment on above: Performed By: #### G LULS #### Point of Care testing , ALP [Catalytic activity/Vol] 88 U/L Normal 32-92 [facility] Comment on above: Performed By: #### G LULS #### Point of Care testing , ALT [Catalytic activity/Vol] 16 U/L Normal 10-60 [facility] Comment on above: Performed By: #### G STEVIELS #### Point of Care testing , AST [Catalytic activity/Vol] 30 U/L Normal 10-42 [facility] Comment on above: Performed By: #### G STEVIELS #### Point of Care testing , Bilirubin [Mass/Vol] 1.2 mg/dL Normal 0.3-1.2 [facility] Comment on above: Performed By: #### G STEVIELS #### Point of Care testing , Bilirubin,Indirect 1.0 mg/dL Normal [facility] Comment on above: Performed By: #### G STEVIELS #### Point of Care testing , Bilirubin.indirect [Mass/Vol] 0.2 mg/dL Normal 0.0-0.4 [facility] Comment on above: Performed By: #### G STEVIELS #### Point of Care testing , Globulin (S) [Mass/Vol] 5.1 g/dL Normal [facility] Comment on above: Performed By: #### G STEVIELS #### Point of Care testing , Protein [Mass/Vol] 7.9 g/dL Normal 6.1-7.9 [facility] Comment on above: Performed By: #### G STEVIELS #### Point of Care testing , Lactic Acidon 09-01-2021 Lactate [Moles/Vol] 1.5 mmol/L Normal 0.5-2.2 [facility] Comment on above: Result Comment: PERF ORMED BY: [facility] [address] [place] [address] PATHOLOGIST NETWORK SECURITY OFFICER HEMANT CHÁVEZ M.D. Performed By: #### C BC, LACTIC, HS TROP, HEPATIC, BMP, LIPASE, BHOB, T4F, TSH3 #### [facility] [address] Lipaseon 09-01-2021 Lipase [Catalytic activity/Vol] 25.0 U/L Normal 22-51 [facility] Comment on above: Performed By: #### G STEVIELS #### Point of Care testing , Magnesiumon 09-01-2021 Magnesium [Mass/Vol] 2.4 mg/dL Normal 1.6-2.6 [facility] Comment on above: Order Comment: Comme nt add on to prior labs Result Comment: PERF ORMED BY: [place] [address] PATHOLOGIST NETWORK SECURITY OFFICER HEMANT CHÁVEZ M.D. Performed By: #### C BC, LACTIC, HS TROP, HEPATIC, BMP, LIPASE, BHOB, T4F, TSH3 #### [facility] [address] [place] [id number] [facility] Holley Ag Negativeon 09-02-19 Holley Ag Negative Negative Normal Negative [facility] Comment on above: Result Comment: This is a duplicate Holley SARS Antigen (JW) result to be used for statistical tracking purpose only. PERFORMED BY: [place] [address] PATHOLOGIST NETWORK SECURITY OFFICER HEMANT CHÁVEZ M.D. Performed By: #### G LULS #### Point of Care testing , Thyroid Stimulating Hormoneo n 09-01-2021 TSH Qn 3.09 m[IU]/L Normal 0.45-5.33 [facility] Comment on above: Result Comment: PERF ORMED BY: [place] [address] PATHOLOGIST NETWORK SECURITY OFFICER HEMANT CHÁVEZ M.D. Performed By: #### G LULS #### Point of Care testing , Troponin I High Sensitivityo n 09-01-2021 Troponin I High Sensitivity 29 pg/mL High 0-15 [facility] Comment on above: Result Comment: PERF ORMED BY: [place] [address] PATHOLOGIST NETWORK SECURITY OFFICER HEMANT CHÁVEZ M.D. Performed By: #### G LULS #### Point of Care testing , Troponin I High Sensitivity 25 pg/mL High 0-15 [facility] Comment on above: Result Comment: PERF ORMED BY: [place] [address] PATHOLOGIST NETWORK SECURITY OFFICER HEMANT CHÁVEZ M.D. Performed By: #### C BC, LACTIC, HS TROP, HEPATIC, BMP, LIPASE, BHOB, T4F, TSH3 #### [facility] [address] Urinalysison 09-01-2021 Appearance (U) Cloudy Critically abnormal Clear [facility] Comment on above: Order Comment: Name Collection Type:: Straight Catheter Performed By: #### C BC, BMP #### [address] Bilirubin,Urine Negative Normal Negative [facility] Comment on above: Order Comment: Name Collection Type:: Straight Catheter Performed By: #### C BC, BMP #### [address] Color (U) Yellow Normal Yellow [facility] Comment on above: Order Comment: Name Collection Type:: Straight Catheter Performed By: #### C BC, BMP #### [address] Glucose Ql (U) Normal Normal Normal [facility] Comment on above: Order Comment: Name Collection Type:: Straight Catheter Performed By: #### C BC, BMP #### [facility] [address] [place] [address] Ketones Ql (U) 1+ High Negative [facility] Comment on above: Order Comment: Name Collection Type:: Straight Catheter Performed By: #### C BC, BMP #### [facility] [address] [place] [address] Leukocyte esterase Test strip Ql (U) Negative Normal Negative [facility] Comment on above: Order Comment: Name Collection Type:: Straight Catheter Performed By: #### C BC, BMP #### [facility] [address] [place] [address] [place] Nitrite,Urine Negative Normal Negative [facility] Comment on above: Order Comment: Name Collection Type:: Straight Catheter Performed By: #### C BC, BMP #### [place] [address] [place] Occult Blood,Urine 2+ High Negative [facility] Comment on above: Order Comment: Name Collection Type:: Straight Catheter Result Comment: PERF ORMED BY: [place] [address] PATHOLOGIST NETWORK SECURITY OFFICER HEMANT CHÁVEZ M.D. Performed By: #### C BC, BMP #### [facility] [address] [place] [address] pH (U) 5.5 [pH] Normal 5.0-9.0 [facility] Comment on above: Order Comment: Name Collection Type:: Straight Catheter Performed By: #### C BC, BMP #### [address] Protein (U) [Mass/Vol] 300 mg/dL High Negative [facility] Comment on above: Order Comment: Name Collection Type:: Straight Catheter Performed By: #### C BC, BMP #### [address] Specificy [place],Urine 1.026 Normal 1.001-1.030 [facility] Comment on above: Order Comment: Name Collection Type:: Straight Catheter Performed By: #### C BC, BMP #### [address] Urobilinogen,Urine Normal Normal Normal [facility] Comment on above: Order Comment: Name Collection Type:: Straight Catheter Performed By: #### C BC, BMP #### [address] Urine Cultureon 09-01-2021 Bacteria identified Cx Nom (U) ORGANISM: Klebsiella pneumoniae (O:KLEPNE) [place] Count 75,000 Aerobic MANAV Charge (NUC86) --- [...] RESISTANT TO ALL B-LACTAM DRUGS. PERFORMED BY: [place] [address] PATHOLOGIST NETWORK SECURITY OFFICER HEMANT CHÁVEZ M.D. Normal [facility] Comment on above: Performed By: #### C BC, BMP #### [facility] [address] Venous Blood Gason CO2 [Moles/Vol] 23.6 mmol/L Low 24.0-29.0 [facility] Comment on above: Performed By: #### G LULS #### Point of Care testing , HCO3 (Bld) [Moles/Vol] 22.6 mmol/L Low 23.0-29.0 [facility] Comment on above: Performed By: #### G LULS #### Point of Care testing , Respiratory Critical Normal [facility] Comment on above: Result Comment: Crit ical Value called on: 09/01/2021 at 12:46 PERFORMED BY: [place] [address] PATHOLOGIST NETWORK SECURITY OFFICER HEMANT CHÁVEZ M.D. Performed By: #### G LULS #### Point of Care testing , VBG Base Excess -0.6 mmol/L Normal -3.0-3.0 [facility] Comment on above: Performed By: #### G LULS #### Point of Care testing , VBG Draw Site Venous Normal [facility] Comment on above: Performed By: #### G LULS #### Point of Care testing , VBG Frac Inspired O2 21 % Normal [facility] Comment on above: Performed By: #### G LULS #### Point of Care testing , VBG O2 Content 7.7 mmol/L Normal 6.6-9.7 [facility] Comment on above: Performed By: #### G LULS #### Point of Care testing , VBG Oxygen Saturation 97.1 % Off scale high 73.0-76.0 [facility] Comment on above: Performed By: #### G LULS #### Point of Care testing , VBG PCO2 32.8 mm[Hg] Low 38.0-50.0 [facility] Comment on above: Performed By: #### G LULS #### Point of Care testing , VBG PH Venous PH 7.46 High 7.32-7.43 [facility] Comment on above: Performed By: #### G LULS #### Point of Care testing , VBG PO2 88.4 mm[Hg] Off scale high 35.0-45.0 [facility] Comment on above: Performed By: #### G LULS #### Point of Care testing , XR chest 1V portableon 09-01 XR chest 1V portable [facility] [place] [address] XRay Report Signed Patient: Jeanmarie Garcia MR#: [id number] 757 : 1950 Acct:[id number] Age/Sex: 71 / F ADM Date: 09/01/21 [...] Gerson White M.D.09/01/2021 12:02 PM Dictation Location: [place] [address] Transcribed By: [facility] 09/01/21 1202 Dictated By: Gerson White DO 09/01/21 1200 Signed By: 09/01/21 1202 [facility] Glucose Poct Glucometerson 0 08-25-2021 Commemt1 Glu2: Cleaned Meter Normal [facility] Comment on above: Result Comment: PERF ORMED BY: [place] [address] PATHOLOGIST NETWORK SECURITY OFFICER HEMANT CHÁVEZ M.D. Performed By: #### C BC, LACTIC, HS TROP, HEPATIC, BMP, LIPASE, BHOB, T4F, TSH3 #### [address] Glucose [Mass/Vol] 143 mg/dL Normal [facility] Comment on above: Result Comment: [facility] Glucose Reference Range is dependent on time and content of last meal. Glucose of more than 200 mg/dL in a nonstressed, ambulatory subject supports the diagnosis of Diabetes Mellitus. Performed By: #### C BC, LACTIC, HS TROP, HEPATIC, BMP, LIPASE, BHOB, T4F, TSH3 #### [address] Basic Metabolic Panelon 08-07 Calcium [Mass/Vol] 8.4 mg/dL Normal 8.2-10.2 [facility] Comment on above: Performed By: #### C BC, LACTIC, HS TROP, HEPATIC, BMP, LIPASE, BHOB, T4F, TSH3 #### [address] Chloride [Moles/Vol] 102 mmol/L Normal 95-114 [facility] Comment on above: Performed By: #### C BC, LACTIC, HS TROP, HEPATIC, BMP, LIPASE, BHOB, T4F, TSH3 #### [facility] [address] CO2 [Moles/Vol] 26.5 mmol/L Normal 22.0-30.0 [facility] Comment on above: Performed By: #### C BC, LACTIC, HS TROP, HEPATIC, BMP, LIPASE, BHOB, T4F, TSH3 #### [facility] [address] Creatinine [Mass/Vol] 1.03 mg/dL Normal 0.44-1.03 [facility] Comment on above: Performed By: #### C BC, LACTIC, HS TROP, HEPATIC, BMP, LIPASE, BHOB, T4F, TSH3 #### [facility] [address] Creatinine Clr Calc Pharmacy 59.91 [facility] Comment on above: Performed By: #### C BC, LACTIC, HS TROP, HEPATIC, BMP, LIPASE, BHOB, T4F, TSH3 #### [facility] [address] Estimated GFR ( Roseline > 60 [facility] Comment on above: Result Comment: GFR estimated reference range: According to KDOQI guidelines, <60 ml/min/1.73m2 is sufficient to diagnose a patient with chronic kidney disease. Performed By: #### C BC, LACTIC, HS TROP, HEPATIC, BMP, LIPASE, BHOB, T4F, TSH3 #### [address] Estimated GFR (Non- Am 53 [facility] Comment on above: Performed By: #### C BC, LACTIC, HS TROP, HEPATIC, BMP, LIPASE, BHOB, T4F, TSH3 #### [facility] [address] Glucose [Mass/Vol] 148 mg/dL High 70-100 [facility] Comment on above: Result Comment: [place] Glucose Reference Range is dependent on time and content of last meal. Glucose of more than 200 mg/dL in a nonstressed, ambulatory subject supports the diagnosis of Diabetes Mellitus. ADA recommended reference range Performed By: #### C BC, LACTIC, HS TROP, HEPATIC, BMP, LIPASE, BHOB, T4F, TSH3 #### [address] Potassium [Moles/Vol] 3.8 mmol/L Normal 3.5-5.1 [facility] Comment on above: Performed By: #### C BC, LACTIC, HS TROP, HEPATIC, BMP, LIPASE, BHOB, T4F, TSH3 #### [facility] [address] Sodium [Moles/Vol] 137 mmol/L Normal 136-146 [facility] Comment on above: Performed By: #### C BC, LACTIC, HS TROP, HEPATIC, BMP, LIPASE, BHOB, T4F, TSH3 #### [address] Urea nitrogen [Mass/Vol] 12 mg/dL Normal 9-23 [facility] Comment on above: Performed By: #### C BC, LACTIC, HS TROP, HEPATIC, BMP, LIPASE, BHOB, T4F, TSH3 #### [address] Glucose Poct Glucometerson 0 - Commemt1 Glu2: Cleaned Meter Normal [facility] Comment on above: Result Comment: PERF ORMED BY: [place] [address] PATHOLOGIST NETWORK SECURITY OFFICER HEMANT CHÁVEZ M.D. Performed By: #### C BC, LACTIC, HS TROP, HEPATIC, BMP, LIPASE, BHOB, T4F, TSH3 #### [address] Glucose [Mass/Vol] 239 mg/dL Normal [facility] Comment on above: Result Comment: [facility] Glucose Reference Range is dependent on time and content of last meal. Glucose of more than 200 mg/dL in a nonstressed, ambulatory subject supports the diagnosis of Diabetes Mellitus. Performed By: #### C BC, LACTIC, HS TROP, HEPATIC, BMP, LIPASE, BHOB, T4F, TSH3 #### [place] [address] Commemt1 Glu2: Cleaned Meter Normal [facility] Comment on above: Result Comment: PERF ORMED BY: [place] [address] PATHOLOGIST NETWORK SECURITY OFFICER HEMANT CHÁVEZ M.D. Performed By: #### C BC, BMP #### [address] Glucose [Mass/Vol] 191 mg/dL Normal [facility] Comment on above: Result Comment: [place] om Glucose Reference Range is dependent on time and content of last meal. Glucose of more than 200 mg/dL in a nonstressed, ambulatory subject supports the diagnosis of Diabetes Mellitus. Performed By: #### C BC, BMP #### [address] Glucose [Mass/Vol] 149 mg/dL Normal [facility] Comment on above: Result Comment: [place] om Glucose Reference Range is dependent on time and content of last meal. Glucose of more than 200 mg/dL in a nonstressed, ambulatory subject supports the diagnosis of Diabetes Mellitus. PERFORMED BY: [place] [address] PATHOLOGIST NETWORK SECURITY OFFICER HEMANT CHÁVEZ M.D. Performed By: #### C BC, BMP #### [address] Glucose [Mass/Vol] 177 mg/dL Normal [facility] Comment on above: Result Comment: [place] om Glucose Reference Range is dependent on time and content of last meal. Glucose of more than 200 mg/dL in a nonstressed, ambulatory subject supports the diagnosis of Diabetes Mellitus. PERFORMED BY: [place] [address] PATHOLOGIST NETWORK SECURITY OFFICER HEMANT CHÁVEZ M.D. Performed By: #### C BC, LACTIC, HS TROP, HEPATIC, BMP, LIPASE, BHOB, T4F, TSH3 #### [address] HCV Ab with Rfx to NAAon HCV Ab with Reflex to Qual NAILA <0.1 Normal 0.0-0.9 [facility] Comment on above: Order Comment: Which is this, the Source or the Person with the Exposure?: SOURCE Source Medical Record: [id number] Exposed Performed By: #### C BC, BMP #### [address] Interpretation Normal . [facility] Comment on above: Order Comment: Which is this, the Source or the Person with the Exposure?: SOURCE Source Medical Record: [id number] Exposed Result Comment: Nega tive Not infected with HCV, unless recent infection is suspected or other evidence exists to indicate HCV infection. Performed at: [facility] [id number] Tax Manager: Spencer Mcdaniels PhD, Phone: [phone] PERFORMED BY: [place] [address] PATHOLOGIST NETWORK SECURITY OFFICER HEMANT CHÁVEZ M.D. Performed By: #### C BC, BMP #### [address] HIV Screen ([facility])on HIV Screen ([facility]) Non-Reactive Normal Nonreactive [facility] Comment on above: Order Comment: Which is this, the Source or the Person with the Exposure?: SOURCE Source Medical Record: [id number] Exposed Result Comment: PERF ORMED BY: [place] [address] PATHOLOGIST NETWORK SECURITY OFFICER HEMANT CHÁVEZ M.D. Performed By: #### C BC, BMP #### [address] Hemogram CBC Without Diffon 08-24-2021 Erythrocyte distribution width (RBC) [Ratio] 15.5 % High 11.9-15.3 [facility] Comment on above: Performed By: #### C BC, LACTIC, HS TROP, HEPATIC, BMP, LIPASE, BHOB, T4F, TSH3 #### [address] Hematocrit (Bld) [Volume fraction] 35.5 % Normal 34.0-46.4 [facility] Comment on above: Performed By: #### C BC, LACTIC, HS TROP, HEPATIC, BMP, LIPASE, BHOB, T4F, TSH3 #### [address] Hemoglobin (Bld) [Mass/Vol] 11.3 g/dL Low 11.8-15.4 [facility] Comment on above: Performed By: #### C BC, LACTIC, HS TROP, HEPATIC, BMP, LIPASE, BHOB, T4F, TSH3 #### [address] MCH (RBC) [Entitic mass] 28.0 pg Normal 24.7-34.3 [facility] Comment on above: Performed By: #### C BC, LACTIC, HS TROP, HEPATIC, BMP, LIPASE, BHOB, T4F, TSH3 #### [address] MCV (RBC) [Entitic vol] 87.7 fL Normal 80-100 [facility] Comment on above: Performed By: #### C BC, LACTIC, HS TROP, HEPATIC, BMP, LIPASE, BHOB, T4F, TSH3 #### [address] Mean Corpuscular HGB Conc 31.9 g/dL Low 32.0-35.0 [facility] Comment on above: Performed By: #### C BC, LACTIC, HS TROP, HEPATIC, BMP, LIPASE, BHOB, T4F, TSH3 #### [address] Platelet mean volume (Bld) [Entitic vol] 7.7 fL Normal 6.3-10.7 [facility] Comment on above: Result Comment: PERF ORMED BY: [place] [address] PATHOLOGIST NETWORK SECURITY OFFICER HEMANT CHÁVEZ M.D. Performed By: #### C BC, LACTIC, HS TROP, HEPATIC, BMP, LIPASE, BHOB, T4F, TSH3 #### [facility] [address] Platelets (Bld) [#/Vol] 229 10*3/uL Normal 150-450 [facility] Comment on above: Performed By: #### C BC, LACTIC, HS TROP, HEPATIC, BMP, LIPASE, BHOB, T4F, TSH3 #### [facility] [address] RBC (Bld) [#/Vol] 4.05 10*6/uL Normal 3.60-5.00 [facility] Comment on above: Performed By: #### C BC, LACTIC, HS TROP, HEPATIC, BMP, LIPASE, BHOB, T4F, TSH3 #### [address] WBC (Bld) [#/Vol] 9.4 10*3/uL Normal 3.8-11.6 [facility] Comment on above: Performed By: #### C BC, LACTIC, HS TROP, HEPATIC, BMP, LIPASE, BHOB, T4F, TSH3 #### [facility] [address] [place] [address] Hepatic Panelon 08-24-2021 Albumin [Mass/Vol] 3.2 g/dL Normal 3.2-5.5 [facility] Comment on above: Performed By: #### C BC, LACTIC, HS TROP, HEPATIC, BMP, LIPASE, BHOB, T4F, TSH3 #### [address] Albumin/Globulin [Mass ratio] 0.8 {ratio} Normal [facility] Comment on above: Performed By: #### C BC, LACTIC, HS TROP, HEPATIC, BMP, LIPASE, BHOB, T4F, TSH3 #### [address] ALP [Catalytic activity/Vol] 99 U/L High 32-92 [facility] Comment on above: Performed By: #### C BC, LACTIC, HS TROP, HEPATIC, BMP, LIPASE, BHOB, T4F, TSH3 #### [facility] [address] ALT [Catalytic activity/Vol] 10 U/L Normal 10-60 [facility] Comment on above: Performed By: #### C BC, LACTIC, HS TROP, HEPATIC, BMP, LIPASE, BHOB, T4F, TSH3 #### [facility] [address] AST [Catalytic activity/Vol] 13 U/L Normal 10-42 [facility] Comment on above: Performed By: #### C BC, LACTIC, HS TROP, HEPATIC, BMP, LIPASE, BHOB, T4F, TSH3 #### [facility] [address] Bilirubin [Mass/Vol] 0.5 mg/dL Normal 0.3-1.2 [facility] Comment on above: Performed By: #### C BC, LACTIC, HS TROP, HEPATIC, BMP, LIPASE, BHOB, T4F, TSH3 #### [address] Bilirubin,Indirect Not performed Normal [facility] Comment on above: Performed By: #### C BC, LACTIC, HS TROP, HEPATIC, BMP, LIPASE, BHOB, T4F, TSH3 #### [address] Bilirubin.indirect [Mass/Vol] mg/dL Normal 0.0-0.4 [facility] Comment on above: Performed By: #### C BC, LACTIC, HS TROP, HEPATIC, BMP, LIPASE, BHOB, T4F, TSH3 #### [address] Globulin (S) [Mass/Vol] 3.8 g/dL Normal [facility] Comment on above: Performed By: #### C BC, LACTIC, HS TROP, HEPATIC, BMP, LIPASE, BHOB, T4F, TSH3 #### [address] Protein [Mass/Vol] 7.0 g/dL Normal 6.1-7.9 [facility] Comment on above: Performed By: #### C BC, LACTIC, HS TROP, HEPATIC, BMP, LIPASE, BHOB, T4F, TSH3 #### [facility] [address] Hepatitis B Surface Antibody on 08-24-2021 Hepatitis B Surface Antibody Non-Reactive Normal . [facility] Comment on above: Order Comment: Which is this, the Source or the Person with the Exposure?: SOURCE Source Medical Record: [id number] Exposed Result Comment: Non Reactive: Inconsistent with immunity, less than 10 mIU/mL Reactive: Consistent with immunity, greater than 9.9 mIU/mL Performed By: #### C BC, BMP #### [facility] [address] [place] [address] Hepatitis B Surface Antigeno n 08-24-2021 HBsAg Screen Negative Normal Negative [facility] Comment on above: Order Comment: Which is this, the Source or the Person with the Exposure?: SOURCE Source Medical Record: [id number] Exposed Result Comment: Perf ormed at: CB - [facility] [address] [id number] Tax Manager: Spencer Mcdaniels PhD, Phone: [phone] Performed By: #### C MARIA ELENA, BMP #### [address] Eric 08-24-2021 L -- ---- Specimen: [id number] Received: 08/24/21 Status: JOSE Hampton Num: [id number] Spec Type: Surgical Subm Dr: Isael Castro MD Tissues: A Gallbladder (GALLBLADDER) Procedures: HE Stain, Gross/Micro L3 ---- Patient Age/Sex Location Account Attending Physician ---- Jeanmarie Garcia 71/F 4N [id number] Isael Castro MD ---- SPEC NUM: [id number] RECD: 08/24/21 STATUS: JOSE HAMPTON NUM: [id number] BASIA: 08/24/21- [facility] DR: Isael Castro MD ENTERED: 08/24/21 [facility] DR: LUCIAN TYPE: Surgical DEPT: S [facility] BY: [id number] ORDERED: HE Stain, Gross/Micro L3 ORDERED: HE [...] lesions or periductal lymph nodes are identified. Demolition Expert sections are submitted in one cassette labeled A1. (SM/JS) Microscopic Description One glass slide with H E stained material has been examined. The microscopic findings support the above pathologic diagnosis. [id number] ---- ---- Specimen: [id number] Received: 08/24/21 Status: JOSE Hampton Num: [id number] Spec Type: Surgical Subm Dr: Isael Castro MD Tissues: A Gallbladder (GALLBLADDER) Procedures: HE Stain, Gross/Micro L3 ---- Patient: Jeanmarie Garcia [id number] (Continued) ---- Signed (signature on file) Hemant Chávez MD 08/25/21 1822 Normal [facility] Lipaseon 08-24-2021 Lipase [Catalytic activity/Vol] 27.0 U/L Normal 22-51 [facility] Comment on above: Result Comment: PERF ORMED BY: [place] [address] PATHOLOGIST NETWORK SECURITY OFFICER HEMANT CHÁVEZ M.D. Performed By: #### C BC, LACTIC, HS TROP, HEPATIC, BMP, LIPASE, BHOB, T4F, TSH3 #### [facility] [address] Basic Metabolic Panelon 08-07 Calcium [Mass/Vol] 8.4 mg/dL Normal 8.2-10.2 [facility] Comment on above: Performed By: #### C BC, BMP #### [facility] [address] Chloride [Moles/Vol] 104 mmol/L Normal 95-114 [facility] Comment on above: Performed By: #### C BC, BMP #### [facility] [address] CO2 [Moles/Vol] 24.8 mmol/L Normal 22.0-30.0 [facility] Comment on above: Performed By: #### C BC, BMP #### [facility] [address] Creatinine [Mass/Vol] 0.96 mg/dL Normal 0.44-1.03 [facility] Comment on above: Performed By: #### C BC, BMP #### [facility] [address] [place] [address] [place] Creatinine Clr Calc Pharmacy 64.28 Normal [facility] Comment on above: Performed By: #### C BC, BMP #### [place] [address] [place] Estimated GFR ( Roseline > 60 Normal [facility] Comment on above: Result Comment: GFR estimated reference range: According to KDOQI guidelines, <60 ml/min/1.73m2 is sufficient to diagnose a patient with chronic kidney disease. Performed By: #### C BC, BMP #### [facility] [address] [place] [address] [place] Estimated GFR (Non- Am 58 Normal [facility] Comment on above: Performed By: #### C BC, BMP #### [address] Glucose [Mass/Vol] 101 mg/dL High 70-100 [facility] Comment on above: Result Comment: [place] om Glucose Reference Range is dependent on time and content of last meal. Glucose of more than 200 mg/dL in a nonstressed, ambulatory subject supports the diagnosis of Diabetes Mellitus. ADA recommended reference range Performed By: #### C BC, BMP #### [address] Potassium [Moles/Vol] 3.5 mmol/L Normal 3.5-5.1 [facility] Comment on above: Performed By: #### C BC, BMP #### [address] Sodium [Moles/Vol] 137 mmol/L Normal 136-146 [facility] Comment on above: Performed By: #### C BC, BMP #### [address] Urea nitrogen [Mass/Vol] 10 mg/dL Normal 9-23 [facility] Comment on above: Performed By: #### C BC, BMP #### [address] COVID-19 Antigenon 2 COVID-19 [facility] [...] developed and its performance characteristic determined by [employer] and validated at [facility]. This test has not been FDA cleared [...] for SARS Antigen by JW PERFORMED BY: [place] [address] PATHOLOGIST NETWORK SECURITY OFFICER HEMANT CHÁVEZ M.D. Normal [facility] Comment on above: Performed By: #### C , BMP #### [address] COVID-19 [facility] 08-23-2021 SARS-CoV-2 (COVID-19) RNA NAILA+probe Ql (Unsp spec) Negative Normal Negative [facility] Comment on above: Order Comment: Healt hcare Worker?: N Result Comment: Testing for SARS-CoV-2 by RT-PCR This test was developed and its performance characteristics determined by [employer]) and validated at the [facility]. This test has not been FDA cleared [...] is terminated or revoked sooner. PERFORMED BY: [place] [address] PATHOLOGIST NETWORK SECURITY OFFICER HEMANT CHÁVEZ M.D. Performed By: #### C BC, BMP #### [address] Complete Blood Count Auto Di ffon 08-23-2021 Basophils (Bld) [#/Vol] 0.0 10*3/uL Normal 0.0-0.2 [facility] Comment on above: Result Comment: PERF ORMED BY: [place] [address] PATHOLOGIST NETWORK SECURITY OFFICER HEMANT CHÁVEZ M.D. Performed By: #### C BC, BMP #### [address] Basophils/100 WBC (Bld) 0.4 % Normal . [facility] Comment on above: Performed By: #### C BC, BMP #### [address] Eosinophils (Bld) [#/Vol] 0.5 10*3/uL High 0.0-0.45 [facility] Comment on above: Performed By: #### C BC, BMP #### [address] Eosinophils/100 WBC (Bld) 5.4 % Normal . [facility] Comment on above: Performed By: #### C BC, BMP #### [facility] [address] Erythrocyte distribution width (RBC) [Ratio] 15.5 % High 11.9-15.3 [facility] Comment on above: Performed By: #### C BC, BMP #### [facility] [address] Hematocrit (Bld) [Volume fraction] 37.7 % Normal 34.0-46.4 [facility] Comment on above: Performed By: #### C BC, BMP #### [facility] [address] Hemoglobin (Bld) [Mass/Vol] 12.2 g/dL Normal 11.8-15.4 [facility] Comment on above: Performed By: #### C BC, BMP #### [address] Lymphocytes (Bld) [#/Vol] 2.0 10*3/uL Normal 1.00-4.8 [facility] Comment on above: Performed By: #### C BC, BMP #### [address] Lymphocytes/100 WBC (Bld) 21.9 % Normal . [facility] Comment on above: Performed By: #### C BC, BMP #### [facility] [address] MCH (RBC) [Entitic mass] 28.1 pg Normal 24.7-34.3 [facility] Comment on above: Performed By: #### C BC, BMP #### [facility] [address] MCV (RBC) [Entitic vol] 86.9 fL Normal 80-100 [facility] Comment on above: Performed By: #### C BC, BMP #### [address] Mean Corpuscular HGB Conc 32.3 g/dL Normal 32.0-35.0 [facility] Comment on above: Performed By: #### C BC, BMP #### [facility] [address] [place] [address] [place] Monocytes (Bld) [#/Vol] 0.6 10*3/uL Normal 0.0-0.8 [facility] Comment on above: Performed By: #### C BC, BMP #### [facility] [address] [place] [address] [place] Monocytes/100 WBC (Bld) 6.2 % Normal . [facility] Comment on above: Performed By: #### C BC, BMP #### [facility] [address] [place] [address] [place] Neutrophils (Bld) [#/Vol] 5.9 10*3/uL Normal 1.8-7.7 [facility] Comment on above: Performed By: #### C MARIA ELENA, BMP #### [facility] [address] [place] [id number] [place] Neutrophils/100 WBC (Bld) 66.1 % Normal . [facility] Comment on above: Performed By: #### C MARIA ELENA, BMP #### [facility] [address] [place] [id number] [place] Nucleated RBC/100 WBC (Bld) [Ratio] 0.0 % Normal 0-0.5 [facility] Comment on above: Performed By: #### C BC, BMP #### [facility] [address] [place] [id number] [place] Platelet mean volume (Bld) [Entitic vol] 7.7 fL Normal 6.3-10.7 [facility] Comment on above: Performed By: #### C BC, BMP #### [facility] [address] [place] [address] [place] Platelets (Bld) [#/Vol] 261 10*3/uL Normal 150-450 [facility] Comment on above: Performed By: #### C BC, BMP #### [facility] [address] [place] [address] [place] RBC (Bld) [#/Vol] 4.33 10*6/uL Normal 3.60-5.00 [facility] Comment on above: Performed By: #### C BC, BMP #### [facility] [address] [place] [address] [place] WBC (Bld) [#/Vol] 8.9 10*3/uL Normal 4.5-11.0 [facility] Comment on above: Performed By: #### C BC, BMP #### [facility] [address] [place] [address] [place] Dipstick and Microscopicon 0 08-23-2021 Appearance (U) Cloudy Critically abnormal Clear [facility] Comment on above: Order Comment: Name Collection Type:: Clean-Voided Midstream Performed By: #### C BC, LACTIC, HS TROP, HEPATIC, BMP, LIPASE, BHOB, T4F, TSH3 #### [address] Bacteria,Urine 2+ High None Seen [facility] Comment on above: Order Comment: Name Collection Type:: Clean-Voided Midstream Performed By: #### C BC, LACTIC, HS TROP, HEPATIC, BMP, LIPASE, BHOB, T4F, TSH3 #### [place] [address] [place] Bilirubin,Urine Negative Normal Negative [facility] Comment on above: Order Comment: Name Collection Type:: Clean-Voided Midstream Performed By: #### C BC, LACTIC, HS TROP, HEPATIC, BMP, LIPASE, BHOB, T4F, TSH3 #### [address] Color (U) Yellow Normal Yellow [facility] Comment on above: Order Comment: Name Collection Type:: Clean-Voided Midstream Performed By: #### C BC, LACTIC, HS TROP, HEPATIC, BMP, LIPASE, BHOB, T4F, TSH3 #### [place] [address] [place] Glucose Ql (U) Normal Normal Normal [facility] Comment on above: Order Comment: Name Collection Type:: Clean-Voided Midstream Performed By: #### C BC, LACTIC, HS TROP, HEPATIC, BMP, LIPASE, BHOB, T4F, TSH3 #### [address] Hyaline Casts,Urine 0-8 Normal 0-8 [facility] Comment on above: Order Comment: Name Collection Type:: Clean-Voided Midstream Result Comment: PERF ORMED BY: [place] [address] PATHOLOGIST NETWORK SECURITY OFFICER HEMANT CHÁVEZ M.D. Performed By: #### C BC, LACTIC, HS TROP, HEPATIC, BMP, LIPASE, BHOB, T4F, TSH3 #### [address] Ketones Ql (U) Negative Normal Negative [facility] Comment on above: Order Comment: Name Collection Type:: Clean-Voided Midstream Performed By: #### C BC, LACTIC, HS TROP, HEPATIC, BMP, LIPASE, BHOB, T4F, TSH3 #### [address] Leukocyte esterase Test strip Ql (U) 3+ High Negative [facility] Comment on above: Order Comment: Name Collection Type:: Clean-Voided Midstream Performed By: #### C BC, LACTIC, HS TROP, HEPATIC, BMP, LIPASE, BHOB, T4F, TSH3 #### [address] Nitrite,Urine Negative Normal Negative [facility] Comment on above: Order Comment: Name Collection Type:: Clean-Voided Midstream Performed By: #### C BC, LACTIC, HS TROP, HEPATIC, BMP, LIPASE, BHOB, T4F, TSH3 #### [address] Occult Blood,Urine Negative Normal Negative [facility] Comment on above: Order Comment: Name Collection Type:: Clean-Voided Midstream Result Comment: PERF ORMED BY: [place] [address] PATHOLOGIST NETWORK SECURITY OFFICER HEMANT CHÁVEZ M.D. Performed By: #### C BC, LACTIC, HS TROP, HEPATIC, BMP, LIPASE, BHOB, T4F, TSH3 #### [address] pH (U) 5.5 [pH] Normal 5.0-9.0 [facility] Comment on above: Order Comment: Name Collection Type:: Clean-Voided Midstream Performed By: #### C BC, LACTIC, HS TROP, HEPATIC, BMP, LIPASE, BHOB, T4F, TSH3 #### [address] Protein (U) [Mass/Vol] 100 mg/dL High Negative [facility] Comment on above: Order Comment: Name Collection Type:: Clean-Voided Midstream Performed By: #### C BC, LACTIC, HS TROP, HEPATIC, BMP, LIPASE, BHOB, T4F, TSH3 #### [address] RBC,Urine 1-2 Normal 0-4 [facility] Comment on above: Order Comment: Name Collection Type:: Clean-Voided Midstream Performed By: #### C BC, LACTIC, HS TROP, HEPATIC, BMP, LIPASE, BHOB, T4F, TSH3 #### [address] Specificy [place],Urine 1.021 Normal 1.001-1.030 [facility] Comment on above: Order Comment: Name Collection Type:: Clean-Voided Midstream Performed By: #### C BC, LACTIC, HS TROP, HEPATIC, BMP, LIPASE, BHOB, T4F, TSH3 #### [address] Squamous Epithelial Cell,Urine 20-30 High 0-2 [facility] Comment on above: Order Comment: Name Collection Type:: Clean-Voided Midstream Performed By: #### C BC, LACTIC, HS TROP, HEPATIC, BMP, LIPASE, BHOB, T4F, TSH3 #### [address] Urobilinogen,Urine Normal Normal Normal [facility] Comment on above: Order Comment: Name Collection Type:: Clean-Voided Midstream Performed By: #### C BC, LACTIC, HS TROP, HEPATIC, BMP, LIPASE, BHOB, T4F, TSH3 #### [facility] [address] [place] [address] WBC,Urine 50-100 High 0-4 [facility] Comment on above: Order Comment: Name Collection Type:: Clean-Voided Midstream Performed By: #### C BC, LACTIC, HS TROP, HEPATIC, BMP, LIPASE, BHOB, T4F, TSH3 #### [facility] [address] ECG 12 lead ECGon 08-23-2021 ECG 12 lead ECG [facility] [place] [address] [place] [address] Electrocardiograph Report Signed Patient: Jeanmarie Garcia MR#: [id number] 757 : 1950 Acct:[id number] Age/Sex: 71 / F ADM Date: 08/23/21 Loc: [place] Room: Type: [facility] Attending Dr: Isael Castro MD Ordering Provider: [...] Signed By Soy Marinelli DO 1549 Normal [facility] Glucose Poct Glucometerson 0 08-23-2021 Commemt1 Glu2: Cleaned Meter Normal [facility] Comment on above: Result Comment: PERF ORMED BY: [place] [address] PATHOLOGIST NETWORK SECURITY OFFICER HEMANT CHÁVEZ M.D. Performed By: #### C BC, LACTIC, HS TROP, HEPATIC, BMP, LIPASE, BHOB, T4F, TSH3 #### [facility] [address] Glucose [Mass/Vol] 197 mg/dL Normal [facility] Comment on above: Result Comment: [place] om Glucose Reference Range is dependent on time and content of last meal. Glucose of more than 200 mg/dL in a nonstressed, ambulatory subject supports the diagnosis of Diabetes Mellitus. Performed By: #### C BC, LACTIC, HS TROP, HEPATIC, BMP, LIPASE, BHOB, T4F, TSH3 #### [address] Commemt1 Glu2: Cleaned Meter [facility] Comment on above: Result Comment: PERF ORMED BY: [place] [address] PATHOLOGIST NETWORK SECURITY OFFICER HEMANT CHÁVEZ M.D. Performed By: #### C BC, LACTIC, HS TROP, HEPATIC, BMP, LIPASE, BHOB, T4F, TSH3 #### [address] Glucose [Mass/Vol] 145 mg/dL Normal [facility] Comment on above: Result Comment: [place] om Glucose Reference Range is dependent on time and content of last meal. Glucose of more than 200 mg/dL in a nonstressed, ambulatory subject supports the diagnosis of Diabetes Mellitus. Performed By: #### C BC, LACTIC, HS TROP, HEPATIC, BMP, LIPASE, BHOB, T4F, TSH3 #### [facility] [address] Hepatic Panelon 08-23-2021 Albumin [Mass/Vol] 3.1 g/dL Low 3.2-5.5 [facility] Comment on above: Performed By: #### C BC, BMP #### [address] Albumin/Globulin [Mass ratio] 0.8 {ratio} [facility] Comment on above: Performed By: #### C BC, BMP #### [facility] [address] ALP [Catalytic activity/Vol] 91 U/L Normal 32-92 [facility] Comment on above: Performed By: #### C BC, BMP #### [address] ALT [Catalytic activity/Vol] 12 U/L Normal 10-60 [facility] Comment on above: Performed By: #### C BC, BMP #### [address] AST [Catalytic activity/Vol] 16 U/L Normal 10-42 [facility] Comment on above: Performed By: #### C BC, BMP #### [address] Bilirubin [Mass/Vol] 0.5 mg/dL Normal 0.3-1.2 [facility] Comment on above: Performed By: #### C BC, BMP #### [facility] [address] [place] [address] Bilirubin,Indirect Not performed Normal [facility] Comment on above: Performed By: #### C BC, BMP #### [facility] [address] [place] [address] Bilirubin.indirect [Mass/Vol] mg/dL Normal 0.0-0.4 [facility] Comment on above: Performed By: #### C BC, BMP #### [facility] [address] [place] [address] Globulin (S) [Mass/Vol] 3.8 g/dL Normal [facility] Comment on above: Performed By: #### C BC, BMP #### [facility] [address] [place] [address] Protein [Mass/Vol] 6.9 g/dL Normal 6.1-7.9 [facility] Comment on above: Performed By: #### C BC, BMP #### [facility] [address] [place] [address] Lipaseon 08-23-2021 Lipase [Catalytic activity/Vol] 31.0 U/L Normal 22-51 [facility] Comment on above: Result Comment: PERF ORMED BY: [place] [address] PATHOLOGIST NETWORK SECURITY OFFICER HEMANT CHÁVEZ M.D. Performed By: #### C BC, BMP #### [address] Holley Ag Negativeon 08-24-19 Holley Ag Negative Negative Normal Negative [facility] Comment on above: Result Comment: This is a duplicate [place] SARS Antigen (JW) result to be used for statistical tracking purpose only. PERFORMED BY: [place] [address] PATHOLOGIST NETWORK SECURITY OFFICER HEMANT CHÁVEZ M.D. Performed By: #### C MARIA ELENA, BMP #### [place] [id number] [facility] US gall bladderon 08-23-2021 US gall bladder [facility] [place] [address] [place] [address] Ultrasound Report Signed Patient: Jeanmarie Garcia MR#: [id number] 757 : 1950 Acct:[id number] Age/Sex: 71 / F ADM Date: 08/23/21 Loc: ER Room: Type: [facility] ER Attending Dr: Ordering Provider: Soy Marinelli [...] LIVER.. Impression dictated by: Gerald Glasgow Jr., D.OMichaelle08/23/2021 9:59 AM Dictation Location: [place] [address] Tech: Lolis Owen Transcribed By: [facility] 08/23/21958 Dictated By: Gerald Glasgow Jr, DO 08/23/21 0954 Signed By: 08/23/21958 [facility] Urine Cultureon 08-23-2021 Bacteria identified Cx Nom (U) >100,000 colonies/ml mixed bacterial skin contaminants 2 Days PERFORMED BY: [place] [address] PATHOLOGIST NETWORK SECURITY OFFICER HEMANT CHÁVEZ M.D. [facility] Comment on above: Performed By: #### C BC, LACTIC, HS TROP, HEPATIC, BMP, LIPASE, BHOB, T4F, TSH3 #### [address] Coding Summaryon 05-28-2019 Coding Summary CODING DATE: 05/28/2019 [facility] STATUS: Home PAYOR: Medicare ADMIT DX: [...] Mony Vines Date Saved: 05/28/2019 03:02 pm [facility] MAGR Intraoperative Recordon 05-15-2019 MAGR Intraoperative Record [facility] Intra-Op Record Summary Primary Physician: Magdi Mclaughlin MD Finalized Date/Time: 05/15/19 13:43:13 Pt. Name: JEANMARIE GARCIA/Sex: 1950 FEMALE Med Rec #: [id number] Physician: Magdi Mclaughlin MD Financial #: [id number] Pt. Type: D Room/Bed: / Admit/Disch: 05/13/19 [...] Entry 3 Case Attendee Magdi Mclaughlin MD, Anuja Duke MD, RN Role Performed Surgeon - Primary Anesthesiologist of Business Technology Architect Record Time In 05/13/19 07:42:00 05/13/19 07:42:00 05/13/19 07:42:00 Time Out 05/13/19 09:07:00 05/13/19 09:07:00 05/13/19 09:07:00 Procedure Hernia Repair Ventral Hernia Repair Ventral Hernia Repair Ventral Last Modified By: Anuja Farias RN, Barbara RN Long, Barbara RN 05/13/19 09:08:03 05/13/19 09:08:03 05/13/19 09:08:03 Entry 4 Entry 5 Case Attendee Irving LOOMIS, [place] Dai CST Role Performed Scrub Personnel Counter Weigher Time In 05/13/19 07:42:00 05/13/19 07:42:00 Time [...] Methods Clipper Hair Removal By [place] Lopez CST Outcome Met (O.100) Yes Last Modified By: [...] Initial Count Time 05/13/19 07:20:00 Performed By Irving MEDICAL CSR, Shaniqua Counts Verification Final Counts Items Included in [...] Outcome Met (O.130) Yes Last Modified By: Anuja Farias RN 05/13/19 08:59:18 Post-Care Text: E.20 [...] Date/Time By: Size 3 CM / 3.2 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 BARD Lot Number [id number] Expiration Date 07/04/20 Implant Usage Data Site Abdomen Quantity 1 Supervising Editor Trailer Sterility Outcome Met (O.30) Yes Last Modified [...] 05/15/19 13:42 MHBLONG Modify Pick List Normal [facility] Coding Summaryon 05-14-2019 Coding Summary CODING DATE: 05/14/2019 [facility] STATUS: Home PAYOR: Medicare MC APC DESCRIPTION 5341 Abdominal/Peritoneal/B iliary and Related Procedures ADMIT DX: REASON FOR VISIT DX: K43.9 Ventral hernia without obstruction or gangrene FINAL DX: PRINCIPAL: K43.9 Ventral hernia without obstruction or gangrene SECONDARY: E11.9 Type 2 diabetes mellitus without complications 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 PYMT PROC APC STAT DESCRIPTION DOCTOR NAME DATE 49063 5341 J1 Repair initial Magdi Mclaughlin MD 05/13/2019 incisional or ventral hernia; reducible 89368 Implantation of mesh or Magdi Mclaughlin MD [...] Sarai Lynn Date Saved: 05/14/2019 02:01 pm [facility] Consent Formson 05-14-2019 Consent Forms [id number] 20 [id number]#1.[address] [place] [address] Medication Managementon Medication Management [id number]#1.[address] [place] [address] Outside Recordson 05-14-2019 Outside Records [id number] 20 [id number]#1.[address] [place] [address] Provider Orderson 05-14-2019 Provider Orders [id number] 20 [id number]#1.[address] [place] [address] Telemetry Stripson 0 Telemetry Strips [id number] 20 [id number]#1.[address] [place] [address] Anesthesia Noteon 05-13-2019 Anesthesia Note Patient: JEANMARIE [...] on: 05/13/2019 09:57 EST] Kevin Khoury MD [facility] Anesthesia Note Patient: JEANMARIE GARCIA Age: [...] (chronic obstructive pulmonary disease) / SNOMED CT 44498659 / Confirmed Development delay / SNOMED CT 873700885 / Confirmed Diabetes / SNOMED CT 889781022 / Confirmed GERD (gastroesophageal reflux disease) / SNOMED CT 654440551 / Confirmed Hyponatremia / SNOMED CT 794730984 / Confirmed Hypothyroidism / SNOMED CT 33987713 / Confirmed Schizophrenia / SNOMED CT 11120777 / Confirmed Speech problem / SNOMED CT 303685852 / Confirmed Resolved: Depression / SNOMED CT 03507965 Histories Family History: History is unknown. Procedure history: Stomach ([id number]). Comments: 11/19/2018 12:55 Marshal Hoyos RN pt [...] Oriented. Review / Management Laboratory Results Plan [place] [employer] Anesthesiologists#(ASA ) physical status classification: [...] on: 05/13/2019 08:13 EST] Kevin Khoury MD [facility] History and Physicalon 05-13 History and Physical [id number] .[id number] [facility] Inpatient Patient Summaryon 05-13-2019 [place] [address] Patient Discharge Instructions Name: JEANMARIE GARCIA PARADA : 1950 Patient Address: [address] [place] [address] Primary Care Provider: Name: GERALD FUENTES After you are discharged if you find you have any questions, please, call [phone] ext [phone] to speak to a nurse. Discharge Diagnosis: Ventral incisional hernia Prescription Information: If you have been given a prescription for narcotics, seek immediate medical attention if you have any difficulty breathing or any sudden status changes such as confusion and sleepiness. If you or anyone you know is experiencing suicidal thoughts, mental health, alcohol and/or drug addiction problems; contact the [facility] 30/10 Crisis Hotline -Text 4HRXU iu 459020. If you received any narcotics, sedation, or [...] business decisions or sign any legal documents [facility] would like to thank you for allowing us to assist you with your healthcare needs. The following includes patient education materials and information regarding your injury/illness. JEANMARIE GARCIA KARMA has been given the following list of follow-up instructions, prescriptions, and patient education materials: Follow-up Instructions With: Address: When: Magdi Mclaughlin [address] [place] [address], [place] [address] Business (1) In 2 weeks 05/27/2019 With: Address: When: GERALD FUENTES [address] [place] [address] [place]. [place], [place] [id number] Business (1) Medications During the course of your visit, your medication list was updated with the most current information. The details of those changes are reflected below: New Medications Printed Prescriptions acetaminophen-hydrocod one (Greenlawn 5 mg-325 mg oral tablet) 1 tab(s) [...] needed as needed for pain. acetaminophen-hydrocod one ([place]lawn 5 mg-325 mg oral tablet) 1 tab(s) [...] the next day or two. ? Take grlp-xsp-wngdwqx and prescription medicines only as told by [...] 03/12/2013 Document Revised: 05/08/2018 Document Reviewed: 10/15/2017 [employer] Interactive Patient Education ? 2019 xoompark. Viruses or Bacteria What?s got you sick? [...] for Disease Control and Prevention December 2013 [facility] PACU Record MAGR PACU Record Summary Primary Physician: Magdi Mclaughlin MD Finalized Date/Time: 05/13/19 10:21:28 Pt. Name: JEANMARIE GARCIA D.O.B./Sex: 1950 FEMALE Med Rec #: [id number] Physician: Magdi Mclaughlin MD Financial #: [id number] Pt. Type: D Room/Bed: / Admit/Disch: 05/13/19 05:53:00 - Institution: PACU Case Times MAGR Entry 1 In PACU I 05/13/19 09:10:00 Discharge from PACU 05/13/19 09:49:00 I Last Modified By: Yolanda Robbins RN 05/13/19 10:21:25 Finalized By: Yolanda Robbins RN Document Signatures Signed By: Yolanda Robbins RN 05/13/19 10:21 [facility] MAGR Postoperative Recordon 05-13-2019 MAGR Postoperative Record MAGR Phase II Record Summary Primary Physician: Magdi Mclaughlin MD Finalized Date/Time: 05/13/19 12:19:23 Pt. Name: JEANMARIE GARCIA KARMA Martini/Sex: 1950 FEMALE Med Rec #: [id number] Physician: Magdi Mclaughlin MD Financial #: [id number] Pt. Type: D Room/Bed: / Admit/Disch: 05/13/19 [...] Signed By: Denae Najera RN 05/13/19 12:19 [facility] MAGR Preoperative Recordon 0 05-13-2019 MAGR Preoperative Record MAGR Pre-Op Record Summary Primary Physician: Magdi Mclaughlin MD Finalized Date/Time: 05/13/19 08:06:19 Pt. Name: JEANMARIE GARCIA /Sex: 1950 FEMALE Med Rec #: [id number] Physician: Magdi Mclaughlin MD Financial #: [id number] Pt. Type: D Room/Bed: / Admit/Disch: 05/13/19 [...] Signed By: Anuja Farias RN 05/13/19 08:06 Normal [facility] Operative Report - Surgeon/P irco 05-13-2019 Operative Report - Surgeon/Physician DATE OF PROCEDURE: 05/13/2019 SURGEON: Magdi Mclauhglin MD ANESTHESIA: General. PREOPERATIVE DIAGNOSIS: Ventral hernia. [...] The fascia was closed transversely using interrupted eutbnt-zi-mnnej 0 Vicryl sutures. The sutures included the [...] discharged today. Magdi Mclaughlin M.D. JOB #: [id number] bk CC: Gerald Fuentes D.O. [Electronically Signed on: 05/13/2019 11:19 EST] Magdi Mclaughlin MD [Verified on: 05/13/2019 11:19 EST] Magdi Mclaughlin MD [Transcribed on: 05/13/2019 10:09 EST] [facility] Patient Handouton 05-13-2019 Patient Handout Gastroenterology Ventral [...] the next day or two. ? Take sxbf-qtb-qopmzdz and prescription medicines only as told by [...] 03/12/2013 Document Revised: 05/08/2018 Document Reviewed: 10/15/2017 [employer] Interactive Patient Education ? 2018 xoompark. [facility] Progress Note - Nurseon 02-0 Progress Note - Nurse Pre-op call done, talked with caregiver @ [facility]. Instructed to have pt. here @ 05-13-2019, NPO after midnight-verbalized understanding. [Electronically Signed on: 05/12/2019 09:47 EST] Denae Najera RN [Verified on: 05/12/2019 09:47 EST] Denae Najera RN [facility] Coding Summaryon 05-08-2019 Coding Summary CODING DATE: 05/08/2019 [facility] STATUS: Home PAYOR: Medicare ADMIT DX: [...] Deanna Whitman Date Saved: 05/08/2019 09:15 am [facility] Progress Note - Nurseon 04-11 Progress Note - Nurse Chart reviewed by Dr. Palacios and no new orders received. [Electronically Signed on: 05/08/2019 15:51 EST] Yolanda Soto RN [Verified on: 05/08/2019 15:51 EST] Yolanda Soto RN [facility] .Auto Diff 1on 05-07-2019 Auto Haines % 5 % Normal 04-20 [facility] Comment on above: Performed By: #### 1 [id number], [id number], [id number] #### [facility] (DEFAULT) [address] [place] [address]27 Baso Abs# 0.0 x10 Normal 0.0-0.2 [facility] Comment on above: Performed By: #### 1 [id number], 7396667, 63599860 #### [facility] (DEFAULT) [address] [place] [address]508 Basophils/100 WBC (Bld) 0.1 % Low 0.2-2.0 [facility] Comment on above: Performed By: #### 1 [id number], 9676496, 40134829 #### [facility] (DEFAULT) [address] [place] [address] 05418 Eos Abs# 1.2 x10 High 0.0-0.4 [facility] Comment on above: Performed By: #### 1 [id number], 7231147, [id number] #### [facility] (DEFAULT) [address] [place] [address] 01724 Eosinophils/100 WBC (Bld) 11.4 % High 0.9-4.0 [facility] Comment on above: Performed By: #### 1 [id number], 4148371, 48999556 #### [facility] (DEFAULT) [address] [place] [address] 03838 Lymphocytes (Bld) [#/Vol] 3.3 x10 High 1.3-2.9 [facility] Comment on above: Performed By: #### 1 [id number], 1837946, 83976219 #### [facility] (DEFAULT) [address] [place] [address] 99329 Lymphocytes/100 WBC (Bld) 31 % Normal 14-48 [facility] Comment on above: Performed By: #### 1 [id number], 4616477, 83659280 #### [facility] (DEFAULT) [address] [place] [address] 04647 Haines Abs# 0.6 x10 Normal 0.0-0.8 [facility] Comment on above: Performed By: #### 1 [id number], 2257359, 95375083 #### [facility] (DEFAULT) [address] [place] [address] 95187 Neut Abs# 5.7 x10 Normal 1.5-9.2 [facility] Comment on above: Performed By: #### 1 [id number], 3978968, 83986584 #### [facility] (DEFAULT) [address] [place] [address] 20682 Neutrophils/100 WBC (Bld) 53 % Normal 44-88 [facility] Comment on above: Performed By: #### 1 [id number], 4848301, 82414264 #### [facility] (DEFAULT) [address] [place] [address] Standardon 05-07-2019 eGFR Non AA >60 [facility] Comment on above: Performed By: #### 1 [id number], 7493702, 15622586 #### [facility] (DEFAULT) [address] [place] [address] eGFR AA >60 [facility] Comment on above: Result Comment: Asset Management Lead anna Kidney disease could be indicated at eGFRs of less than 60 ml/min/1.73m2. Kidney Failure is indicated at less than 15 ml/min/1.73m2 Performed By: #### 1 [id number], 0935006, [id number] #### [facility] (DEFAULT) [address] [place] [address] 31082 Anion gap [Moles/Vol] 13.0 mmol/L Normal 5.0-19.0 [facility] Comment on above: Performed By: #### 1 [id number], 4445503, 68614393 #### [facility] (DEFAULT) [address] [place] [address]14 Calcium [Mass/Vol] 9.3 mg/dL Normal 8.9-10.3 [facility] Comment on above: Performed By: #### 1 [id number], 1954343, 08654882 #### [facility] (DEFAULT) [address] [place] [address] 46940 Chloride [Moles/Vol] 100 mmol/L Low 101-111 [facility] Comment on above: Performed By: #### 1 [id number], 2634965, 17536783 #### [facility] (DEFAULT) [address] [place] [address] 80220 CO2 [Moles/Vol] 29 mmol/L Normal 21-32 [facility] Comment on above: Performed By: #### 1 [id number], 0672306, 18362602 #### [facility] (DEFAULT) [address] [place] [address] 43934 Creatinine [Mass/Vol] 0.83 mg/dL Normal 0.60-1.30 [facility] Comment on above: Performed By: #### 1 [id number], 0312501, 81914894 #### [facility] (DEFAULT) [address] [place] [address] 48432 Glucose [Mass/Vol] 119.0 mg/dL High 74.0-118.0 [facility] Comment on above: Performed By: #### 1 [id number], 7880827, 73784038 #### [facility] (DEFAULT) [address] [place] [address] 17632 Osmolality [Osmolality] 280 mOsm/L [facility] Comment on above: Performed By: #### 1 [id number], 7382361, 88210427 #### [facility] (DEFAULT) [address] [place] [address] 50646 Potassium [Moles/Vol] 4.2 mmol/L Normal 3.6-5.1 [facility] Comment on above: Performed By: #### 1 [id number], 7571168, 57729063 #### [facility] (DEFAULT) [address] [place] [address] 35338 Sodium [Moles/Vol] 138.0 mmol/L Normal 136.0-144.0 [facility] Comment on above: Performed By: #### 1 [id number], 8755629, 33182603 #### [facility] (DEFAULT) [address] [place] [address] 36929 Urea nitrogen [Mass/Vol] 21 mg/dL Normal 8-26 [facility] Comment on above: Performed By: #### 1 [id number], 0262889, 44836163 #### [facility] (DEFAULT) [address] [place] [address] Urea nitrogen/Creatinine [Mass ratio] 25.0 mg/mg High 4.6-16.2 [facility] Comment on above: Performed By: #### 1 [id number], 5813207, 83456989 #### [facility] (DEFAULT) [address] [place] [address] CBC w/ Auto Diffon 0 Erythrocyte distribution width (RBC) [Ratio] 14.5 % Normal 11.5-15.0 [facility] Comment on above: Performed By: #### 7 676668, 20533450, [id number] #### [facility] (DEFAULT) [address] [place] [address] Hematocrit (Bld) [Volume fraction] 40.5 % High 33.7-40.4 [facility] Comment on above: Performed By: #### 7 067465, 13215862, [id number] #### [facility] (DEFAULT) [address] [place] [address] Hemoglobin (Bld) [Mass/Vol] 12.7 g/dL Normal 11.3-15.9 [facility] Comment on above: Performed By: #### 7 865087, 39617634, [id number] #### [facility] (DEFAULT) [address] [place] [address] Man Diff? Auto Normal [facility] Comment on above: Performed By: #### 7 174780, 60371002, [id number] #### [facility] (DEFAULT) [address] [place] [address] 93265 MCH (RBC) [Entitic mass] 28 pg Normal 24-34 [facility] Comment on above: Performed By: #### 7 651220, 82484924, [id number] #### [facility] (DEFAULT) [address] [place] [address] 60376 MCHC (RBC) [Mass/Vol] 31 g/dL Normal 26-37 [facility] Comment on above: Performed By: #### 7 884398, 48983979, [id number] #### [facility] (DEFAULT) [address] [place] [address] 40624 MCV (RBC) [Entitic vol] 91 fL Normal 81-100 [facility] Comment on above: Performed By: #### 7 702706, 60474406, [id number] #### [facility] (DEFAULT) [address] [place] [address] 66403 Platelet mean volume (Bld) [Entitic vol] 9.4 fL Normal 6.3-10.2 [facility] Comment on above: Performed By: #### 7 786754, 85580479, [id number] #### [facility] (DEFAULT) [address] [place] [address] Platelets (Bld) [#/Vol] 275 x10 Normal 138-427 [facility] Comment on above: Performed By: #### 7 075632, 39836765, [id number] #### [facility] (DEFAULT) [address] [place] [address] RBC (Bld) [#/Vol] 4.45 x10 Normal 3.70-5.30 [facility] Comment on above: Performed By: #### 7 737008, 60366788, [id number] #### [facility] (DEFAULT) [address] [place] [address] WBC (Bld) [#/Vol] 10.9 x10 High 3.5-10.5 [facility] Comment on above: Performed By: #### 7 510270, 61074208, [id number] #### [facility] (DEFAULT) [address] [place] [address] Patient Letteron 03-12-2019 Patient Letter [id number]#1.0 0OTGTIFF Normal [facility] Patient Letter [id number]#1.0 0OTGTIFF Normal [facility] CARDIAC STRESS/REST INJE CTIONon 12-31-2018 NO CARDIAC STRESS/REST INJECTION Patient Name: NINO JEANMARIE STUDY: MYOCARDIAL PERFUSION STRESS TEST WITH LEXISCAN Performing facility: [facility], [address], [address], [place] [address] [facility] Provider: Sharon Jones MD, [facility] PCP: Dr. Milton FUENTES SURGEON: DR. Debbi GARCIA Supervising provider: Rui Ford DO, [facility] INDICATION: DM NICM Pre-operative risk assessment for ventral Hernia scheduled at [facility], DATE PENDING HISTORY: Gender: F; Age: 68 y/o ; Height: 162.56 cm; Weight: 96.4006463 kg. High Cholesterol; Diabetes; HTN; COPD; NICM Currently smoking. COMPARISON: No comparison. ACCESSION NUMBER(S): [id number]; [id number]; [id number] ORDERING CLINICIAN: KEVIN JONES TECHNIQUE: ONE DAY [...] comparison. Electronically signed by: BERTHA GONZALEZ MD [facility] Coding Summaryon 12-30-2018 Coding Summary CODING DATE: 12/30/2018 [facility] STATUS: Home PAYOR: Medicare ADMIT DX: [...] Mony Vines Date Saved: 12/30/2018 03:13 pm [facility] Outside Recordson 12-25-2018 Outside Records [id number]#1. 00OTGTIFF [facility] Progress Note - Nurseon 11-07 Progress Note - Nurse Chart reviewed by Dr. Palacios no new orders received. [Electronically Signed on: 11/21/2018 14:21 EDT] Yolanda Soto RN [Verified on: 11/21/2018 14:21 EDT] Yolanda Soto RN [facility] Coding Summaryon 11-20-2018 Coding Summary CODING DATE: 11/20/2018 [facility] STATUS: Home PAYOR: Medicare APC DESCRIPTION [...] Tasha Justin Date Saved: 11/20/2018 11:29 am Normal [facility] .Auto Diff 1on 11-19-2018 Auto Haines % 5 % Normal 1-12 [facility] Comment on above: Performed By: #### 1 [id number], 1975282, 85410608 #### [facility] (DEFAULT) [address] [place] [address] 60111 Baso Abs# 0.0 x10 Normal 0.0-0.2 [facility] Comment on above: Performed By: #### 1 [id number], 5962724, 99623756 #### [facility] (DEFAULT) [address] [place] [address] 01261 Basophils/100 WBC (Bld) 0.1 % Low 0.2-2.0 [facility] Comment on above: Performed By: #### 1 213393232, 1203817, 79979522 #### [facility] (DEFAULT) [address] [place] [address] 71780 Eos Abs# 1.3 x10 High 0.0-0.4 [facility] Comment on above: Performed By: #### 1 322116003, 2068129, 94351457 #### [facility] (DEFAULT) [address] [place] [address] 30347 Eosinophils/100 WBC (Bld) 11.7 % High 0.9-4.0 [facility] Comment on above: Performed By: #### 1 [id number], 5512636, 90796439 #### [facility] (DEFAULT) [address] [place] [address] 25497 Lymphocytes (Bld) [#/Vol] 2.9 x10 Normal 1.3-2.9 [facility] Comment on above: Performed By: #### 1 [id number], 7914582, 71353981 #### [facility] (DEFAULT) [address] [place] [address] 05285 Lymphocytes/100 WBC (Bld) 26 % Normal 14-48 [facility] Comment on above: Performed By: #### 1 106672194, 1772604, 14965778 #### [facility] (DEFAULT) [address] [place] [address] 01879 Haines Abs# 0.5 x10 Normal 0.0-0.8 [facility] Comment on above: Performed By: #### 1 [id number], 0294201, 94746647 #### [facility] (DEFAULT) [address] [place] [address] 09074 Neut Abs# 6.4 x10 Normal 1.5-9.2 [facility] Comment on above: Performed By: #### 1 [id number], 5006506, 28691583 #### [facility] (DEFAULT) [address] [place] [address] Neutrophils/100 WBC (Bld) 58 % Normal 44-88 [facility] Comment on above: Performed By: #### 1 [id number], 1112546, 61422934 #### [facility] (DEFAULT) [address] [place] [address] Standardon 11-19-2018 eGFR Non AA 60 mL/min/1.73m2 [facility] Comment on above: Performed By: #### 1 [id number], 8238824, 47752008 #### [facility] (DEFAULT) [address] [place] [address] eGFR AA >60 [facility] Comment on above: Result Comment: Asset Management Lead anna Kidney disease could be indicated at eGFRs of less than 60 ml/min/1.73m2. Kidney Failure is indicated at less than 15 ml/min/1.73m2 Performed By: #### 1 [id number], 8848622, 79295117 #### [facility] (DEFAULT) [address] [place] [address] 42964 Anion gap [Moles/Vol] 15.0 mmol/L Normal 5.0-19.0 [facility] Comment on above: Performed By: #### 1 [id number], 3598436, 21870851 #### [facility] (DEFAULT) [address] [place] [address] 50264 Calcium [Mass/Vol] 9.5 mg/dL Normal 8.9-10.3 [facility] Comment on above: Performed By: #### 1 [id number], 9033955, 51821920 #### [facility] (DEFAULT) [address] [place] [address] [id number] Chloride [Moles/Vol] 101 mmol/L Normal 101-111 [facility] Comment on above: Performed By: #### 1 [id number], [id number], [id number] #### [facility] (DEFAULT) [address] [place] [address] 25662 CO2 [Moles/Vol] 26 mmol/L Normal 21-32 [facility] Comment on above: Performed By: #### 1 [id number], [id number], [id number] #### [facility] (DEFAULT) [address] [place] [address] 02944 Creatinine [Mass/Vol] 0.93 mg/dL Normal 0.60-1.30 [facility] Comment on above: Performed By: #### 1 [id number], [id number], [id number] #### [facility] (DEFAULT) [address] [place] [address] Glucose [Mass/Vol] 128.0 mg/dL High 74.0-118.0 [facility] Comment on above: Performed By: #### 1 [id number], [id number], [id number] #### [facility] (DEFAULT) [address] [place] [address] 94385 Osmolality [Osmolality] 281 mOsm/L [facility] Comment on above: Performed By: #### 1 [id number], [id number], [id number] #### [facility] (DEFAULT) [address] [place] [address] 72568 Potassium [Moles/Vol] 4.2 mmol/L Normal 3.6-5.1 [facility] Comment on above: Performed By: #### 1 [id number], [id number], [id number] #### [facility] (DEFAULT) [address] [place] [address] 33199 Sodium [Moles/Vol] 138.0 mmol/L Normal 136.0-144.0 [facility] Comment on above: Performed By: #### 1 [id number], [id number], [id number] #### [facility] [place] (DEFAULT) [address] [place] [address] 62690 Urea nitrogen [Mass/Vol] 22 mg/dL Normal 8-26 [facility] Comment on above: Performed By: #### 1 [id number], [id number], [id number] #### [facility] (DEFAULT) [address] [place] [address] Urea nitrogen/Creatinine [Mass ratio] 24.0 mg/mg High 4.6-16.2 [facility] Comment on above: Performed By: #### 1 [id number], [id number], [id number] #### [facility] [place] (DEFAULT) [address] [place] [address] CBC w/ Auto Diffon 9 Erythrocyte distribution width (RBC) [Ratio] 14.9 % Normal 11.5-15.0 [facility] Comment on above: Performed By: #### 1 [id number], [id number], [id number] #### [facility] [place] (DEFAULT) [address] [place] [address] Hematocrit (Bld) [Volume fraction] 39.4 % Normal 33.7-40.4 [facility] Comment on above: Performed By: #### 1 [id number], [id number], [id number] #### [facility] [place] (DEFAULT) [address] [place] [address] Hemoglobin (Bld) [Mass/Vol] 12.4 g/dL Normal 11.3-15.9 [facility] Comment on above: Performed By: #### 1 [id number], [id number], [id number] #### [facility] (DEFAULT) [address] [place] [address] Man Diff? Auto Normal [facility] Comment on above: Performed By: #### 1 [id number], [id number], [id number] #### [facility] (DEFAULT) [address] [place] [address] 61733 MCH (RBC) [Entitic mass] 29 pg Normal 24-34 [facility] Comment on above: Performed By: #### 1 [id number], [id number], [id number] #### [facility] (DEFAULT) [address] [place] [address] 47463 MCHC (RBC) [Mass/Vol] 32 g/dL Normal 26-37 [facility] Comment on above: Performed By: #### 1 [id number], [id number], [id number] #### [facility] [place] (DEFAULT) [address] [place] [address] 12126 MCV (RBC) [Entitic vol] 91 fL Normal 81-100 [facility] Comment on above: Performed By: #### 1 [id number], [id number], [id number] #### [facility] [place] (DEFAULT) [address] [place] [address] 48898 Platelet mean volume (Bld) [Entitic vol] 9.3 fL Normal 6.3-10.2 [facility] Comment on above: Performed By: #### 1 [id number], [id number], [id number] #### [facility] [place] (DEFAULT) [address] [place] [address] 63516 Platelets (Bld) [#/Vol] 278 x10 Normal 138-427 [facility] Comment on above: Performed By: #### 1 [id number], 6993654, [id number] #### [facility] (DEFAULT) [address] [place] [address] 10312 RBC (Bld) [#/Vol] 4.34 x10 Normal 3.70-5.30 [facility] Comment on above: Performed By: #### 1 [id number], [id number], [id number] #### [facility] [place] (DEFAULT) [address] [place] [address] 14348 WBC (Bld) [#/Vol] 11.2 x10 High 3.5-10.5 [facility] Comment on above: Performed By: #### 1 [id number], [id number], [id number] #### [facility] (DEFAULT) [address] [place] [address] 29901 PROGRESSon 07-19-2017 PROGRESS HNO ID: [id number]: Celina Dorantes) GrantService: (none)Author Type: Physician AssistantType: Progress NotesFiled: 07/20/2017 10:27 AMNote Text: [facility] NOTENAME: ELMA GARCIA NO.: [id number] OF SERVICE: 07/19/2017Irina Summers OF : August [...] SYSTEMS: Please see above.MEDICATIONS: Reviewed in the care home record.CODE STATUS: Full code.PHYSICAL EXAMINATION: Revealed middle-aged [...] supportive care.DICTATED BY: AIDEE López/AcusisD: 018 JOB# [id number]:[facility] Centerectronically Signed by Celina Judd PA-C at 07/20/2017 10:16:25 Normal [facility] PROGRESSon 06-07-2017 PROGRESS HNO ID: [id number]: Fatmata CristinanService: (none)Author Type: PhysicianType: Progress NotesFiled: 06/08/2017 4:57 PMNote Text: [facility] NOTENAME: PATRICIO GARCIA NO.: [id number] [facility] SERVICE: [facility]/07/2017[facility] 1950She is sitting up in [...] regimen.DICTATED BY: Fatmata Casey MDIAE/AcusisD:06/08/19 18 JOB# [id number]:[facility] Signed by Fatmata Casey MD at 06/08/2017 16:46:12 Normal [facility] PROGRESSon 05-17-2017 PROGRESS HNO ID: [id number]: Celina (Eduin) GrantService: (none)Author Type: Physician AssistantType: Progress NotesFiled: 05/18/2017 10:17 AMNote Text: [facility] NOTENAME: PATRICIO GARCIA NO.: [id number] OF SERVICE: 05/17/2017[facility] August 133CHIEF COMPLAINT: Followup diabetes.SUBJECTIVE FINDINGS: The patient was seen in her room at [facility] followup visit. She reported that she was doing well in [facility]. She had been admitted here approximately 1 month ago. Shecontinued to smoke on occasion, although she stated she was trying toquit. Nurses reported her to be eating and drinking well. There was noevidence of seizure activity. She reported that her appetite was goodand bowels regular.REVIEW OF SYSTEMS: Please see above.FAMILY/SOCIAL HISTORY: Unchanged.MEDICATIONS: Reviewed in the care home record. Code status is fullcode.PHYSICAL EXAMINATION: Temperature [...] well controlled since she has been in [facility].2. Seizure disorder. No recent seizure activity. We [...] the facility.DICTATED BY: AIDEE López/AcusisD: 018 JOB# [id number]:[facility]ina [facility] Signed by Celina Judd PA-C at 05/18/2017 10:09:27 Normal [facility] PROGRESSon 05-08-2017 PROGRESS HNO ID: [id number]: Fatmata Flanagan ErenService: (none)Author Type: PhysicianType: Progress NotesFiled: 05/09/2017 3:47 PMNote Text: [facility] NOTENAME: PATRICIO GARCIA NO.: [id number] OF SERVICE: 05/08/2017[facility] ManorDATE OF : 1950New Patient History and PhysicalHISTORY OF PRESENT ILLNESS: The patient is a 66-year-old female who wasadmitted to us directly from her long-term with a diagnosis of seizuredisorder, diabetes mellitus type 2, remote history of DVT, previousgoiter resection with hypothyroidism, history of MRDD, history ofhyponatremia, ongoing smoking history, and hyperlipidemia. Sheapparently did not like living at her community long-term and istherefore now being admitted to our [...] closely.DICTATED BY: Fatmata Casey MDIAE/AcusisD:05/08/19 18 JOB# [id number]:[facility] Normal [facility] Encounters Encounter Date Encounter Type Care Provider Facility Start: 05-31-2023 End: 06-01-2023 ambulatory DELMA NUNN [place] [place]: 05-31-2023 End: 05-31-2023 Patient encounter procedure DELMA NUNN [facility] Start: 02-14-2022 End: 02-14-2022 ambulatory [place] Facility:[facility] Start: 10-25-2021 ambulatory Gerald Fuentes Facilit y:[facility] Start: 09-01-2021 End: 09-06-2021 Evaluation and management of inpatient Services [facility] Facility:[facility] Start: 08-26-2021 End: 08-26-2021 ambulatory Cayla Gamez Other [facility] Other Start: 08-26-2021 Telephone encounter Cayla Fitt [facility] Start: 08-24-2021 End: 08-24-2021 ambulatory Services [facility] Facility:[facility] Start: 08-23-2021 End: 08-25-2021 ambulatory Services [facility] Facility:[facility] Start: 05-11-2021 End: 05-11-2021 ambulatory Cayla Fitt Other [facility] Other Start: 05-11-2021 Telephone encounter Cayla Fitt [facility] Start: 04-20-2021 End: 04-20-2021 ambulatory Cayla Fitt Other [facility] Other Start: 04-20-2021 Telephone encounter Cayla Fitt [facility] Start: 04-12-2021 End: 04-12-2021 ambulatory Cayla Fitt Other [facility] Other Start: 04-12-2021 Telephone encounter Cayla Fitt [facility] Procedures Date Procedure Procedure Detail Performing Clinician Start: 12-31-2018 Echocardiography Payers Date Payer Category Payer Unknown [id number] 2020 Medicaid [id number] 2. [id number] 2020 Medicare [id number] 2.1 [id number] 2020 Self-pay 1950 Unknown [id number] 2.16.8 [id number] Unknown [id number] 2.16.8 [id number] Unknown [id number] 2.16.8 [id number] Unknown [id number] 2.16.8 [id number] Unknown [id number] 2.16.8 [id number] Unknown [id number] 2.16.8 [id number] Social History Date Type Detail Facility Sex Assigned At [facility] Tobacco smoking status No Smoking Status Entered [facility] Evaluation + Plan note Note Date & Type Note Facility Evaluation + Plan note No data available for this section [facility] Evaluation note Note Date & Type Note Facility Evaluation note No Information [facility] [employer] Other History general Narrative - Reported Note Date & Type Note Facility History general Narrative - Reported Type Medical History schizophrenia Medical History Hypothyroidism Medical History COPD Medical History Hypertension Medical History CAD Surgical History thyroidectomy Surgical History exploratory lap, S[facility] Other History general Narrative - Reported Note Date & Type Note Facility History general Narrative - Reported [place] [facility] Other Hospital Discharge instructions Note Date & Type Note Facility Hospital Discharge instructions No data available for this section [facility] Progress note Note Date & Type Note Facility Progress note No data available for this section [facility] Summary Purpose Family History No Family History Records FoundNo Family History Records FoundNo Family History Records FoundNo Family History Records Found No data available for this section No Family History Records Found Advance Directives No Advanced Directives Records FoundNo Advanced Directives Records FoundNo Advanced Directives Records FoundNo Advanced Directives Records FoundNo Advanced Directives Records Found Hospital Course Note [facility] SURGERY Clinical Discharge Summary PERSON INFORMATION Name JEANMARIE GARCIA Age 68 Years 1950 Sex FEMALE Language Wolof PCP GERALD FUENTES Marital Status Single Med Service Ambulatory Surgery Acct# Arrival 05/13/2019 05:53:00 Visit Reason SURGERY - INCISIONAL VENTRAL HERNIA REPAIR WITH MESH Acuity LOS 007 21:08 Address: [address] [place] [address] Comment: PROVIDER INFORMATION VITALS INFORMATION Vital Sign [...] as needed as needed for pain. acetaminophen-hydrocodone ([place] 5 mg-325 mg oral tablet) 1 tab(s) Oral Every 6 hours as needed for pain. Refills: 0. a (more content not included)... Additional Source Comments INFORMATION SOURCE (unrecogn ized section and content) DATE CREATED AUTHOR 09/27/2017 [facility] DATE CREATED AUTHOR AUTHOR'S ORGANIZ ATION 01/11/2019 [facility] DATE CREATED AUTHOR AUTHOR'S ORGANIZ ATION 11/07/2019 [facility] DATE CREATED AUTHOR AUTHOR'S ORGANIZ ATION 05/13/2022 [facility] DATE CREATED AUTHOR AUTHOR'S ORGANIZ ATION 06/08/2023 [facility] REASON FOR VISIT (unrecogniz ed section and content) FCC AppointmentReview DM pl an of care Patient Care team informatio n (unrecognized section and content) Personnel Name: DELMA NUNN CNP Address: Address: [address] [place] [id number] FOR RECORDS PERTAINING TO PATIENTS WHO ARE [...] BE BASED ON THE PRIMARY CLINICAL RECORDS. [facility] [employer] [facility]. provides no warranty or guarantee of the accuracy or completeness of information in this document.
[2023-08-10 08:30] LABS: Basophils Percent Auto 0.3 % (0.2-2.0); Eosinophils Absolute Auto 0.5 10^3/uL (0.0-0.7); Eosinophils Percent Auto 4.5 % (0.9-7.0); Hematocrit 42.9 % (36.0-48.0); Hemoglobin 13.2 g/dL (12.0-16.0); Immature Granulocytes Abs Auto 0.03 10^3/uL (0.00-0.03); Immature Granulocytes Pct Auto 0.3 % (0.0-0.5); Lymphocytes Absolute Auto 3.1 10^3/uL (1.2-3.8); Lymphocytes Percent Auto 30.6 % (20.5-60.0); Mean Corpuscular HGB Conc 30.8 g/dL (29.9-35.2); Mean Corpuscular Hemoglobin 28.1 pg (26.7-34.0); Mean Corpuscular Volume 91.5 fL (81.0-99.0); Mean Platelet Volume 10.1 fL (9.5-13.5); Monocytes Absolute Auto 0.6 10^3/uL (0.3-0.8); Monocytes Percent Auto 6.2 % (1.7-12.0); Neutrophils Percent Auto 58.1 % (43.0-75.0); Platelet Count 265 10^3/uL (150-450); Red Blood Count 4.69 10^6/uL (4.20-5.40); Red Cell Distribution Width 14.4 % (11.0-15.0); White Blood Count 10.3 10^3/uL (4.0-11.0)
[2023-08-10 09:32] LABS: Alanine Aminotransferase 28 U/L (14-59); Alkaline Phosphatase 131 U/L (46-116); Anion Gap 13.1; Aspartate Amino Transferase 21 U/L (15-37); BUN Creatinine Ratio 17.4; Bilirubin Total 0.6 mg/dL (0.2-1.0); Calcium 9.3 mg/dL (8.5-10.1); Carbon Dioxide 28.1 mmol/L (21.0-32.0); Chloride 104 mmol/L (98-107); Estimated GFR (African America >60 (>=60); Estimated GFR (Non-African Ame 50 (>=60); Glucose 99 mg/dL (74-106); Potassium 4.2 mmol/L (3.5-5.1); Sodium 141 mmol/L (136-145)
[2023-08-10 09:33] LABS: Albumin Globulin Ratio 0.7; Albumin Level 3.6 g/dL (3.4-5.0); Globulin 4.9 g/dL; Thyroid Stimulating Hormone 1.604 uIU/mL (0.358-3.740); Total Protein 8.5 g/dL (6.4-8.2)
== END 2023-08-10 02:40 | disposition home or self-care (01) ==
LOC: LAB 02:39
PROVIDERS: Visit Provider Nurse Practitioner Family
DX: E11.9 Type 2 diabetes mellitus without complications (principal)
CPT/HCPCS: 36415; 80053; 82607; 84436; 84443; 85025

== ENCOUNTER 2023-09-15 12:32 | Emergency (ER) | payer MEDICARE, MEDICAID, SELFPAY ==
[2023-09-15] VITALS (21 sets, daily range): BP systolic 92–142; BP diastolic 71–88; PULSE 82–113; TEMP 36.4; O2SAT 93–99
--- NOTE | 2023-09-15 12:37 | ECG_ITS ---
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
--- NOTE | 2023-09-15 12:42 | XR_ITS ---
The [address] [address] Patient Name: JEANMARIE ONEILL MRN: [id number] date: 1950 Sex: F Assigned Patient Location: ER Current Patient Location: Accession/Order Number: [id number] Exam Date: 09/15/2023 13:07 Report Date: 09/15/2023 15:28 At the request of: INEZ HERNANDEZ Procedure: XR chest 1V EXAM: XR chest 1V 09/15/2023 COMPARISON STUDY: PA and lateral chest 02/05/2017. FINDINGS: Surgical clips about the lower neck presumably from prior thyroidectomy again noted. Cardiomediastinal contours are stable and within normal limits. No dense consolidation, effusion, edema, failure or pneumothorax. Patient is obese and image is somewhat underpenetrated. The osseous structures are grossly stable. HISTORY: choking XR/XR chest 1V IMPRESSION: Surgical clips about the lower neck again noted. No acute cardiopulmonary process otherwise noted. Electronically authenticated by: ESDRAS WHITAKER Date: 09/15/2023 15:28
--- OUTSIDE RECORDS SUMMARY | 2023-09-15 12:46 | XMS_ITS | CCD ---
Author Organization [facility] Team Providers Care Vegetable Tester Name Role Phone Cayla Gamez Unavailable [facility] Primary Care Unavaila Martin uG Attending Unavailable Elizabet Wilson Admitting Unavailable [facility] Primary Care Unavaila Isael Villatoro Attending Unavailable Isael Castro Admitting Unavailable Austin Head Unavailable [facility], [facility] Primary Care Unavaila Evert Hamlin Attending Unavailable Mast, Evert Admitting Unavailable [facility] Primary Care Unavaila Fuad Jennings Attending Unavailable Fuad Pillai Admitting Unavailable Gerald Fuentes Primary Care Unavailable Amando Soto Attending Unavailable Amando Soto Admitting Unavailable DELMA NUNN Primary Care Physician [phone] DELMA NUNN Admitting Unavailable DELMA NUNN Attending Unavailable DELMA NUNN Primary Care Unavailable DELMA NUNN Admitting Unavailable DELMA NUNN Attending Unavailable DELMA NUNN Primary Care Unavailable DELMA NUNN Attending Unavailable DELMA NUNN Primary Care Unavailable DELMA NUNN Admitting Unavailable Medications Current Medications Medication Drug Class(es) Dates Sig (Normalized) Sig (Original) acetaminophen 500 mg oral capsule (4 sources) take 1 capsule by mouth every six hours Acetaminophen 500 MG 1 capsule as needed Orally every 6 hrs Active [id number] 200 actuat albuterol 0.09 mg/actuat metered dose [...] Test Name Value Interpretation Reference Range Facility [facility] 08-31-2023 Albumin [Mass/Vol] 4.1 g/dL Normal 3.3-5.[address] [facility] Comment on above: Performed By: #### 2 [id number] #### [facility] [address] [place] [address] Albumin/Globulin (S) [Mass conc ratio] 1.3 Normal 1.1-2.[address] [facility] Comment on above: Performed By: #### 2 653040 #### [facility] [address] [place] [address] ALP [Catalytic activity/Vol] 98 Int._Unit/L Normal 21-[address] [facility] Comment on above: Performed By: #### 2 287865 #### [facility] [address] [place] [address] ALT No additional P-5'-P [Catalytic activity/Vol] 14 Int._Unit/L Normal 6-[address] [facility] Comment on above: Performed By: #### 2 436118 #### [facility] [address] [place] [address] Anion gap [Moles/Vol] 9 mmol/L Normal 6-[address] [facility] Comment on above: Performed By: #### 2 018672 #### [facility] [address] [place] [address] AST [Catalytic activity/Vol] 15 Int._Unit/L Normal 5-[address] [facility] Comment on above: Performed By: #### 2 112672 #### [facility] [address] [place] [address] Bilirubin [Mass/Vol] 0.5 mg/dL Normal 0.0-1.1 [facility] Comment on above: Performed By: #### 2 530573 #### [facility] [address] [place] [address] Calcium [Mass/Vol] 8.7 mg/dL Low 8.9-11.[address] [facility] Comment on above: Performed By: #### 2 824464 #### [facility] [address] [place] [address] Chloride [Moles/Vol] 109 mmol/L Normal 101-111 [facility] Comment on above: Performed By: #### 2 844846 #### [facility] [address] [place] [address] CO2 [Moles/Vol] 28 mmol/L Normal 21-31 [facility] Comment on above: Performed By: #### 2 447568 #### [facility] [address] [place] [address] Creatinine [Mass/Vol] 1.1 mg/dL Normal 0.5-1.[address] [facility] Comment on above: Performed By: #### 2 867612 #### [facility] [address] [place] [address] Globulin (S) [Mass/Vol] 3.1 g/dL Normal 1.4-4.[address] [facility] Comment on above: Performed By: #### 2 958750 #### [facility] [address] [place] [address] Glucose [Mass/Vol] 64 mg/dL Normal 55-[address] [facility] Comment on above: Performed By: #### 2 280374 #### [facility] [address] [place] [address] Potassium [Moles/Vol] 4.1 mmol/L Normal 3.5-5.[address] [facility] Comment on above: Performed By: #### 2 168714 #### [facility] [address] [place] [address] Protein [Mass/Vol] 7.2 g/dL Normal 6.0-7.[address] [facility] Comment on above: Performed By: #### 2 987317 #### [facility] [address] [place] [address] Sodium [Moles/Vol] 142 mmol/L Normal 135-[address] [facility] Comment on above: Performed By: #### 2 576780 #### [facility] [address] [place] [address] Urea nitrogen [Mass/Vol] 20 mg/dL Normal 5-[address] [facility] Comment on above: Performed By: #### 2 108145 #### [facility] [address] [place] [address] Urea nitrogen/Creatinine [Mass ratio] 18 No Units Normal 10-[address] [facility] Comment on above: Performed By: #### 2 208512 #### [facility] [address] [place] [address] Physician Orderon 08-31-2023 Physician Order [id number]. 00TIFF Normal [facility] T4 & TSHon 08-31-2023 TSH Qn 1.97 m[IU]/L Normal 0.34-5.[address] [facility] Comment on above: Performed By: #### 1 [id number] #### [facility] [address] [place] [address] T4 [Mass/Vol] 11.4 microgram/dL High 4.6-9.1 [facility] Comment on above: Performed By: #### 1 [id number] #### [facility] [address] [place] [address] Vit B12on 08-31-2023 Cobalamin (Vitamin B12) [Mass/Vol] 231 pg/mL Normal 50-[address] [facility] Comment on above: Performed By: #### 2 894990 #### [facility] [address] [place] [address] Vitamin D 25 Hydroxyon 08-30 25-hydroxyvitamin D3 [Mass/Vol] 48.1 ng/mL Normal 30.0-100.[address] [facility] Comment on above: Performed By: #### 5 [id number] #### [facility] [address] [place] [address] eGFRon 08-31-2023 eGFR 54 mL/min/1.73 m2 Low >=[address] [facility] Comment on above: Order Comment: Order added by Discern Expert. Performed By: #### 1 [id number] #### [facility] [address] [place] [address] CBC w/ Auto Diffon 4 Basophil Absolute 0.0 E9/L Normal 0.0-0.[address] [facility] Comment on above: Performed By: #### 1 5021367, 0520197, 39824304, 3376824, 2230425 #### [facility] [address] [place] [address] Basophils/100 WBC (Bld) 0.2 % Normal 0.0-2.[address] [facility] Comment on above: Performed By: #### 1 2812579, 9849992, 35564808, 6358110, 1829904 #### [facility] [address] [place] [address] Eos Absolute 0.7 E9/L High 0.0-0.[address] [facility] Comment on above: Performed By: #### 1 6412712, 1972150, 51809318, 5862262, 2774496 #### [facility] [address] [place] [address] Eosinophils/100 WBC (Bld) 6.8 % Normal 0.0-8.[address] [facility] Comment on above: Performed By: #### 1 1251950, 8317747, 22552614, 4396027, 0012998 #### [facility] [address] [place] [address] Erythrocyte distribution width (RBC) [Ratio] 13.8 % Normal 10.9-14.[address] [facility] Comment on above: Performed By: #### 1 4477229, 8159929, 10836121, 2131408, 5675641 #### [facility] [address] [place] [address] Hematocrit (Bld) [Volume fraction] 39.0 % Normal 34.0-46.[address] [facility] Comment on above: Performed By: #### 1 4193670, 4245768, 08316064, 6707105, 5314672 #### [facility] [address] [place] [address] Hemoglobin (Bld) [Mass/Vol] 12.4 g/dL Normal 12.0-16.[address] [facility] Comment on above: Performed By: #### 1 5356049, 0952179, 33874047, 7080497, 6323583 #### [facility] [address] [place] [address] Lymph Absolute 2.5 E9/L Normal 1.0-4.0 [facility] Comment on above: Performed By: #### 1 6233405, 8290153, 19460435, 3126197, 4693338 #### [facility] [address] [place] [address] Lymphocytes/100 WBC (Bld) 25.9 % Normal 14.0-50.[address] [facility] Comment on above: Performed By: #### 1 9945073, 2933900, 40086437, 4440186, 4588637 #### [facility] [address] [place] [address] MCH (RBC) [Entitic mass] 28.2 pg Normal 27.0-34.[address] [facility] Comment on above: Performed By: #### 1 0677539, 5920057, 50911911, 3835933, 0463278 #### [facility] [address] [place] [address] MCHC (RBC) [Mass/Vol] 31.5 g/dL Normal 31.4-36.[address] [facility] Comment on above: Performed By: #### 1 8412962, 8503420, 66505866, 4031375, 7132967 #### [facility] [address] [place] [address] MCV (RBC) [Entitic vol] 89.3 fL Normal 80.0-100.[address] [facility] Comment on above: Performed By: #### 1 6874200, 1251041, 60520601, 3152361, 1983331 #### [facility] [address] [place] [address] [place] Absolute 0.6 E9/L Normal 0.2-1.0 [facility] Comment on above: Performed By: #### 1 0585617, 5841536, 53730026, 7025083, 0403106 #### [facility] [address] [place] [address] Monocytes/100 WBC (Bld) 6.2 % Normal 4.0-14.[address] [facility] Comment on above: Performed By: #### 1 6611882, 0866507, 33722440, 5065080, 9401305 #### [facility] [address] [place] [address] Neutro Absolute 6.0 E9/L Normal 2.0-7.5 [facility] Comment on above: Performed By: #### 1 5993863, 5187110, 71263152, 8998582, 4927674 #### [facility] [address] [place] [address] Neutro Auto 60.9 % Normal 36.0-75.[address] [facility] Comment on above: Performed By: #### 1 3643663, 8442975, 51881685, 7498033, 3164849 #### [facility] [address] [place] [address] Platelet 288.0 E9/L Normal 150.0-500.[address] [facility] Comment on above: Performed By: #### 1 5786653, 7767998, 28270942, 3859795, 0214825 #### [facility] [address] [place] [address] Platelet mean volume (Bld) [Entitic vol] 7.8 fL Normal 6.4-10.[address] [facility] Comment on above: Performed By: #### 1 8029549, 4536247, 65840862, 1338496, 6015172 #### [facility] [address] [place] [address] RBC 4.4 E12/L Normal 4.3-5.[address] [facility] Comment on above: Performed By: #### 1 2205355, 8420079, 51744519, 1028172, 1107776 #### [facility] [address] [place] [address] WBC 9.8 E9/L Normal 4.0-11.[address] [facility] Comment on above: Performed By: #### 1 4280619, 0573357, 34336056, 9386284, 2670120 #### [facility] [address] [place] [address] CHEMISTRYOrdered By: SYSTEM SYSTEM on 05-31-2023 Albumin [...] 05-31-2023 Albumin [Mass/Vol] 4.0 g/dL Normal 3.3-5.[address] [facility] Comment on above: Performed By: #### 1 0097480, 4091190, 36163038, 3075782, 7958206 #### [facility] [address] [place] [address] Albumin/Globulin [Mass ratio] 1.0 {ratio} Low 1.1-2.[address] [facility] Comment on above: Performed By: #### 1 9349702, 2827787, 00303578, 7916220, 3140822 #### [facility] [address] [place] [address] Alk Phos 90 Int._Unit/L Normal 21-98 [facility] Comment on above: Performed By: #### 1 7802060, 5806814, 92974330, 4265311, 6662875 #### [facility] [address] [place] [address] ALT 13 Int._Unit/L Normal 6-46 [facility] Comment on above: Performed By: #### 1 7096063, 9806125, 27489393, 7857502, 9898908 #### [facility] [address] [place] [address] Anion gap [Moles/Vol] 12 mmol/L Normal 6-[address] [facility] Comment on above: Performed By: #### 1 1901295, 5357694, 06559218, 1621868, 8604538 #### [facility] [address] [place] [address] AST 13 Int._Unit/L Normal 5-43 [facility] Comment on above: Performed By: #### 1 7308650, 8496330, 11381510, 3469524, 2209986 #### [facility] [address] [place] [address] Bili Total 0.4 mg/dL Normal 0.0-1.[address] [facility] Comment on above: Performed By: #### 1 7089243, 8604808, 13189707, 7016576, 8965708 #### [facility] [address] [place] [address] BUN/Creat Ratio 22 No Units High 10-20 [facility] Comment on above: Performed By: #### 1 3129414, 7416848, 45979069, 3166257, 0662317 #### [facility] [address] [place] [address] Calcium [Mass/Vol] 9.6 mg/dL Normal 8.9-11.[address] [facility] Comment on above: Performed By: #### 1 9517602, 1352711, 78417824, 0511534, 3877817 #### [facility] [address] [place] [address] Chloride [Moles/Vol] 105 mmol/L Normal 101-111 [facility] Comment on above: Performed By: #### 1 8416644, 8336444, 20090845, 5969813, 0178947 #### [facility] [address] [place] [address] CO2 [Moles/Vol] 29 mmol/L Normal 21-31 [facility] Comment on above: Performed By: #### 1 3922345, 8396491, 19650062, 8465321, 4550942 #### [facility] [address] [place] [address] Creatinine [Mass/Vol] 0.9 mg/dL Normal 0.5-1.[address] [facility] Comment on above: Performed By: #### 1 1668053, 6600540, 14184856, 7774705, 6758876 #### [facility] [address] [place] [address] Globulin (S) [Mass/Vol] 3.9 g/dL Normal 1.4-4.[address] [facility] Comment on above: Performed By: #### 1 1991430, 2153365, 54873322, 0376264, 5942955 #### [facility] [address] [place] [address] Glucose [Mass/Vol] 72 mg/dL Normal 55-[address] [facility] Comment on above: Performed By: #### 1 3875538, 0927598, 32499735, 9315919, 9178723 #### [facility] [address] [place] [address] Potassium [Moles/Vol] 4.1 mmol/L Normal 3.5-5.[address] [facility] Comment on above: Performed By: #### 1 6035420, 7826348, 50173252, 9208933, 2872452 #### [facility] [address] [place] [address] Protein [Mass/Vol] 7.9 g/dL High 6.0-7.[address] [facility] Comment on above: Performed By: #### 1 7225197, 4392350, 75189176, 2186854, 8937053 #### [facility] [address] [place] [address] Sodium [Moles/Vol] 142 mmol/L Normal 135-[address] [facility] Comment on above: Performed By: #### 1 1635138, 8760324, 09043798, 2444542, 3866023 #### [facility] [address] [place] [address] Urea nitrogen [Mass/Vol] 20 mg/dL Normal 5-[address] [facility] Comment on above: Performed By: #### 1 3166480, 1586663, 31719152, 3121904, 8813473 #### [facility] [address] [place] [address] Consent for Treatmenton 05-11 Consent for Treatment [id number] 0TIFF Normal [facility] HEMATOLOGYOrdered By: SYSTEM SYSTEM on 05-31-2023 Basophil [...] Normal 80.0 - 100.[address] [place] Absolute 0.6 E9/L Normal 0.2 - 1.0 [...] Remisol Heme Physician Orderon 05-31-2023 Physician Order [id number] 0TIFF Normal [facility] T4 & TSHon 05-31-2023 TSH Qn 0.45 m[IU]/L Normal 0.34-5.[address] [facility] Comment on above: Performed By: #### 1 9666475, 8148400, 85164989, 8961050, 1214927 #### [facility] [address] [place] [address] T4 11.0 microgram/dL High 4.6-9.[address] [facility] Comment on above: Performed By: #### 1 8931061, 2903308, 36955137, 9159081, 8715152 #### [facility] [address] [place] [address] Vit B12on 05-31-2023 Cobalamin (Vitamin B12) [Mass/Vol] 242 pg/mL Normal 50-[address] [facility] Comment on above: Performed By: #### 1 1927732, 5116385, 91395308, 3522617, 4666617 #### [facility] [address] [place] [address] eGFRon 05-31-2023 eGFR 68 mL/min/1.73 m2 Normal >=[address] [facility] Comment on above: Order Comment: Order added by Discern Expert. Performed By: #### 1 8727441, 1284636, 16226665, 5664464, 6840776 #### [facility] [address] [place] [address] 1,25 Dihydroxy Vit D Calcitr olon 02-14-2022 1,25 Dihydroxy Vit D Calcitrol 19.4 pg/mL Low 24.8-81.5 [facility] Comment on above: Order Comment: Reaso n for Exam Vitamin D deficiency Result Comment: Perf ormed at: [facility] [address] [id number] Greenhouse Manager: Favian Colby MD, Phone: [phone] PERFORMED BY: [facility] [address] [place] [address] PATHOLOGIST DIRECTOR OF MAINTENANCE HEMANT CHÁVEZ M.D. Performed By: #### G LULS #### Point of Care testing , Complete Blood Count Auto Di ffon 02-14-2022 Basophils (Bld) [#/Vol] 0.0 10*3/uL Normal 0.0-0.2 [facility] Comment on above: Order Comment: Reaso n for Exam Essential hypertension Result Comment: PERF ORMED BY: [facility] [address] [place] [address] PATHOLOGIST DIRECTOR OF MAINTENANCE HEMANT CHÁVEZ M.D. Performed By: #### G LULS #### Point of Care testing , Basophils/100 WBC (Bld) 0.2 % Normal . [facility] Comment on above: Order Comment: Reaso n for Exam Essential hypertension Performed By: #### G LULS #### Point of Care testing , Eosinophils (Bld) [#/Vol] 0.6 10*3/uL High 0.0-0.45 [facility] Comment on above: Order Comment: Reaso n for Exam Essential hypertension Performed By: #### G LULS #### Point of Care testing , Eosinophils/100 WBC (Bld) 5.7 % Normal . [facility] Comment on above: Order Comment: Reaso n for Exam Essential hypertension Performed By: #### G LULS #### Point of Care testing , Erythrocyte distribution width (RBC) [Ratio] 14.7 % Normal 11.9-15.3 [facility] Comment on above: Order Comment: Reaso n for Exam Essential hypertension Performed By: #### G LULS #### Point of Care testing , Hematocrit (Bld) [Volume fraction] 38.2 % Normal 34.0-46.4 [facility] Comment on above: Order Comment: Reaso n for Exam Essential hypertension Performed By: #### G LULS #### Point of Care testing , Hemoglobin (Bld) [Mass/Vol] 12.4 g/dL Normal 11.8-15.4 [facility] Comment on above: Order Comment: Reaso n for Exam Essential hypertension Performed By: #### G LULS #### Point of Care testing , Lymphocytes (Bld) [#/Vol] 2.9 10*3/uL Normal 1.00-4.8 [facility] Comment on above: Order Comment: Reaso n for Exam Essential hypertension Performed By: #### G LULS #### Point of Care testing , Lymphocytes/100 WBC (Bld) 28.8 % Normal . [facility] Comment on above: Order Comment: Reaso n for Exam Essential hypertension Performed By: #### G LULS #### Point of Care testing , MCH (RBC) [Entitic mass] 28.0 pg Normal 24.7-34.3 [facility] Comment on above: Order Comment: Reaso n for Exam Essential hypertension Performed By: #### G LULS #### Point of Care testing , MCV (RBC) [Entitic vol] 86.6 fL Normal 80-100 [facility] Comment on above: Order Comment: Reaso n for Exam Essential hypertension Performed By: #### G LULS #### Point of Care testing , Mean Corpuscular HGB Conc 32.4 g/dL Normal 32.0-35.0 [facility] Comment on above: Order Comment: Reaso n for Exam Essential hypertension Performed By: #### G LULS #### Point of Care testing , Monocytes (Bld) [#/Vol] 0.5 10*3/uL Normal 0.0-0.8 [facility] Comment on above: Order Comment: Reaso n for Exam Essential hypertension Performed By: #### G LULS #### Point of Care testing , Monocytes/100 WBC (Bld) 5.1 % Normal . [facility] Comment on above: Order Comment: Reaso n for Exam Essential hypertension Performed By: #### G LULS #### Point of Care testing , Neutrophils (Bld) [#/Vol] 6.1 10*3/uL Normal 1.8-7.7 [facility] Comment on above: Order Comment: Reaso n for Exam Essential hypertension Performed By: #### G LULS #### Point of Care testing , Neutrophils/100 WBC (Bld) 60.2 % Normal . [facility] Comment on above: Order Comment: Reaso n for Exam Essential hypertension Performed By: #### G LULS #### Point of Care testing , Nucleated RBC/100 WBC (Bld) [Ratio] 0.1 % Normal 0-0.5 [facility] Comment on above: Order Comment: Reaso n for Exam Essential hypertension Performed By: #### G LULS #### Point of Care testing , Platelet mean volume (Bld) [Entitic vol] 7.8 fL Normal 6.3-10.7 [facility] Comment on above: Order Comment: Reaso n for Exam Essential hypertension Performed By: #### G LULS #### Point of Care testing , Platelets (Bld) [#/Vol] 330 10*3/uL Normal 150-450 [facility] Comment on above: Order Comment: Reaso n for Exam Essential hypertension Performed By: #### G LULS #### Point of Care testing , RBC (Bld) [#/Vol] 4.41 10*6/uL Normal 3.60-5.00 [facility] Comment on above: Order Comment: Reaso n for Exam Essential hypertension Performed By: #### G LULS #### Point of Care testing , WBC (Bld) [#/Vol] 10.1 10*3/uL Normal 4.5-11.0 [facility] Comment on above: Order Comment: Reaso n for Exam Essential hypertension Performed By: #### G LULS #### Point of Care testing , Comprehensive Metabolic Pane eric 02-14-2022 Albumin [Mass/Vol] 3.8 g/dL Normal 3.2-5.5 [facility] Comment on above: Order Comment: PT FA STED 12 HRS Reason for Exam Essential hypertension Reason for Exam Vitamin B12 deficiency Reason for Exam Hypothyroidism, unspecified type Performed By: #### G LULS #### Point of Care testing , Albumin/Globulin [Mass ratio] 1.0 {ratio} Normal [facility] Comment on above: Order Comment: PT FA STED 12 HRS Reason for Exam Essential hypertension Reason for Exam Vitamin B12 deficiency Reason for Exam Hypothyroidism, unspecified type Performed By: #### G LULS #### Point of Care testing , ALP [Catalytic activity/Vol] 109 U/L High 32-92 [facility] Comment on above: Order Comment: PT FA STED 12 HRS Reason for Exam Essential hypertension Reason for Exam Vitamin B12 deficiency Reason for Exam Hypothyroidism, unspecified type Performed By: #### G LULS #### Point of Care testing , ALT [Catalytic activity/Vol] 14 U/L Normal 10-60 [facility] Comment on above: Order Comment: PT FA STED 12 HRS Reason for Exam Essential hypertension Reason for Exam Vitamin B12 deficiency Reason for Exam Hypothyroidism, unspecified type Performed By: #### G LULS #### Point of Care testing , Anion gap [Moles/Vol] 12.1 mmol/L Normal 6.0-15.0 [facility] Comment on above: Order Comment: PT FA STED 12 HRS Reason for Exam Essential hypertension Reason for Exam Vitamin B12 deficiency Reason for Exam Hypothyroidism, unspecified type Performed By: #### G LULS #### Point of Care testing , AST [Catalytic activity/Vol] 15 U/L Normal 10-42 [facility] Comment on above: Order Comment: PT FA STED 12 HRS Reason for Exam Essential hypertension Reason for Exam Vitamin B12 deficiency Reason for Exam Hypothyroidism, unspecified type Performed By: #### G LULS #### Point of Care testing , Bilirubin [Mass/Vol] 0.7 mg/dL Normal 0.3-1.2 [facility] Comment on above: Order Comment: PT FA STED 12 HRS Reason for Exam Essential hypertension Reason for Exam Vitamin B12 deficiency Reason for Exam Hypothyroidism, unspecified type Performed By: #### G LULS #### Point of Care testing , Calcium [Mass/Vol] 9.3 mg/dL Normal 8.2-10.2 [facility] Comment on above: Order Comment: PT FA STED 12 HRS Reason for Exam Essential hypertension Reason for Exam Vitamin B12 deficiency Reason for Exam Hypothyroidism, unspecified type Performed By: #### G LULS #### Point of Care testing , Chloride [Moles/Vol] 103 mmol/L Normal 95-114 [facility] Comment on above: Order Comment: PT FA STED 12 HRS Reason for Exam Essential hypertension Reason for Exam Vitamin B12 deficiency Reason for Exam Hypothyroidism, unspecified type Performed By: #### G LULS #### Point of Care testing , CO2 [Moles/Vol] 28.0 mmol/L Normal 22.0-30.0 [facility] Comment on above: Order Comment: PT FA STED 12 HRS Reason for Exam Essential hypertension Reason for Exam Vitamin B12 deficiency Reason for Exam Hypothyroidism, unspecified type Performed By: #### G LULS #### Point of Care testing , Creatinine [Mass/Vol] 0.94 mg/dL Normal 0.44-1.03 [facility] Comment on above: Order Comment: PT FA STED 12 HRS Reason for Exam Essential hypertension Reason for Exam Vitamin B12 deficiency Reason for Exam Hypothyroidism, unspecified type Performed By: #### G LULS #### Point of Care testing , Estimated GFR ( Roseline > 60 [facility] Comment on above: Order Comment: PT [...] testing , Estimated GFR (Non- Am 59 [facility] Comment on above: Order Comment: PT FA STED 12 HRS Reason for Exam Essential hypertension Reason for Exam Vitamin B12 deficiency Reason for Exam Hypothyroidism, unspecified type Performed By: #### G LULS #### Point of Care testing , Globulin (S) [Mass/Vol] 3.7 g/dL [facility] Comment on above: Order Comment: PT FA STED 12 HRS Reason for Exam Essential hypertension Reason for Exam Vitamin B12 deficiency Reason for Exam Hypothyroidism, unspecified type Performed By: #### G LULS #### Point of Care testing , Glucose [Mass/Vol] 103 mg/dL High 70-100 [facility] Comment on above: Order Comment: PT FA STED 12 HRS Reason for Exam Essential hypertension Reason for Exam Vitamin B12 deficiency Reason for Exam Hypothyroidism, unspecified type Result Comment: [place] Glucose Reference Range is dependent on time and content of last meal. Glucose of more than 200 mg/dL in a nonstressed, ambulatory subject supports the diagnosis of Diabetes Mellitus. ADA recommended reference range Performed By: #### G LULS #### Point of Care testing , Potassium [Moles/Vol] 4.1 mmol/L Normal 3.5-5.1 [facility] Comment on above: Order Comment: PT FA STED 12 HRS Reason for Exam Essential hypertension Reason for Exam Vitamin B12 deficiency Reason for Exam Hypothyroidism, unspecified type Performed By: #### G LULS #### Point of Care testing , Protein [Mass/Vol] 7.5 g/dL Normal 6.1-7.9 [facility] Comment on above: Order Comment: PT FA STED 12 HRS Reason for Exam Essential hypertension Reason for Exam Vitamin B12 deficiency Reason for Exam Hypothyroidism, unspecified type Performed By: #### G LULS #### Point of Care testing , Sodium [Moles/Vol] 139 mmol/L Normal 136-146 [facility] Comment on above: Order Comment: PT FA STED 12 HRS Reason for Exam Essential hypertension Reason for Exam Vitamin B12 deficiency Reason for Exam Hypothyroidism, unspecified type Performed By: #### G LULS #### Point of Care testing , Urea nitrogen [Mass/Vol] 19 mg/dL Normal 9-23 [facility] Comment on above: Order Comment: PT FA STED 12 HRS Reason for Exam Essential hypertension Reason for Exam Vitamin B12 deficiency Reason for Exam Hypothyroidism, unspecified type Performed By: #### G LULS #### Point of Care testing , Lipid Panelon 02-14-2022 Cholesterol [Mass/Vol] 134 mg/dL Low 140-200 [facility] Comment on above: Order Comment: PT FA [...] in HDL [Mass/Vol] 44 mg/dL Normal 35-85 [facility] Comment on above: Order Comment: PT FA [...] HDL [Mass ratio] 3.0 {ratio} Normal <5.0 [facility] Comment on above: Order Comment: PT FA STED 12 HRS Reason for Exam Essential hypertension Reason for Exam Vitamin B12 deficiency Reason for Exam Hypothyroidism, unspecified type Performed By: #### G LULS #### Point of Care testing , LDL Cholesterol,Calculat ed 73 mg/dL Normal 0-100 [facility] Comment on above: Order Comment: PT FA [...] , Triglyceride w/Reflex 85 mg/dL Normal 35-149 [facility] Comment on above: Order Comment: PT FA [...] testing , VLDL CHOLESTEROL 17 mg/dL Normal [facility] Comment on above: Order Comment: PT FA STED 12 HRS Reason for Exam Essential hypertension Reason for Exam Vitamin B12 deficiency Reason for Exam Hypothyroidism, unspecified type Performed By: #### G LULS #### Point of Care testing , Thyroid Stimulating Hormoneo n 02-14-2022 TSH Qn 1.04 m[IU]/L Normal 0.45-5.33 [facility] Comment on above: Order Comment: PT FA STED 12 HRS Reason for Exam Essential hypertension Reason for Exam Vitamin B12 deficiency Reason for Exam Hypothyroidism, unspecified type Result Comment: PERF ORMED BY: [address] [place] [address] PATHOLOGIST DIRECTOR OF MAINTENANCE HEMANT CHÁVEZ M.D. Performed By: #### G LULS #### Point of Care testing , Thyroxine (T4) Totalon 02-14 T4 [Mass/Vol] 13.17 ug/dL High 5.39-11.82 [facility] Comment on above: Order Comment: PT FA STED 12 HRS Reason for Exam Essential hypertension Reason for Exam Vitamin B12 deficiency Reason for Exam Hypothyroidism, unspecified type Performed By: #### G LULS #### Point of Care testing , Vitamin B12on 02-14-2022 Cobalamin (Vitamin B12) [Mass/Vol] 292 pg/mL Normal 180-914 [facility] Comment on above: Order Comment: PT FA STED 12 HRS Reason for Exam Essential hypertension Reason for Exam Vitamin B12 deficiency Reason for Exam Hypothyroidism, unspecified type Performed By: #### G LULS #### Point of Care testing , Basic Metabolic Panelon 05-3 Calcium [Mass/Vol] 8.2 mg/dL Normal 8.2-10.2 [facility] Comment on above: Performed By: #### C BC, BMP #### [facility] [address] [place] [id number] [place] Chloride [Moles/Vol] 103 mmol/L Normal 95-114 [facility] Comment on above: Performed By: #### C BC, BMP #### [facility] [address] [place] [address] [place] CO2 [Moles/Vol] 27.2 mmol/L Normal 22.0-30.0 [facility] Comment on above: Performed By: #### C BC, BMP #### [facility] [address] Creatinine [Mass/Vol] 1.13 mg/dL High 0.44-1.03 [facility] Comment on above: Performed By: #### C BC, BMP #### [facility] [address] [place] [address] [place] Creatinine Clr Calc Pharmacy 59.74 [facility] Comment on above: Result Comment: PERF ORMED BY: [place] [address] PATHOLOGIST DIRECTOR OF MAINTENANCE HEMANT CHÁVEZ M.D. Performed By: #### C BC, BMP #### [address] Estimated GFR ( Roseline 58 [facility] Comment on above: Result Comment: GFR estimated reference range: According to KDOQI guidelines, <60 ml/min/1.73m2 is sufficient to diagnose a patient with chronic kidney disease. Performed By: #### C BC, BMP #### [address] Estimated GFR (Non- Am 48 [facility] Comment on above: Performed By: #### C BC, BMP #### [address] Glucose [Mass/Vol] 116 mg/dL High 70-100 [facility] Comment on above: Result Comment: [place] Glucose Reference Range is dependent on time and content of last meal. Glucose of more than 200 mg/dL in a nonstressed, ambulatory subject supports the diagnosis of Diabetes Mellitus. ADA recommended reference range Performed By: #### C BC, BMP #### [address] Potassium [Moles/Vol] 3.2 mmol/L Low 3.5-5.1 [facility] Comment on above: Performed By: #### C BC, BMP #### [address] Sodium [Moles/Vol] 140 mmol/L Normal 136-146 [facility] Comment on above: Performed By: #### C BC, BMP #### [facility] [address] Urea nitrogen [Mass/Vol] 9 mg/dL Normal - [facility] Comment on above: Performed By: #### C BC, BMP #### [facility] [address] Complete Blood Count Auto Di ffon 09-06-2021 Basophils (Bld) [#/Vol] 0.0 10*3/uL Normal 0.0-0.2 [facility] Comment on above: Result Comment: PERF ORMED BY: [place] [address] PATHOLOGIST DIRECTOR OF MAINTENANCE HEMANT CHÁVEZ M.D. Performed By: #### C BC, BMP #### [address] Basophils/100 WBC (Bld) 0.1 % Normal . [facility] Comment on above: Performed By: #### C BC, BMP #### [address] Eosinophils (Bld) [#/Vol] 0.2 10*3/uL Normal 0.0-0.45 [facility] Comment on above: Performed By: #### C BC, BMP #### [address] Eosinophils/100 WBC (Bld) 2.3 % Normal . [facility] Comment on above: Performed By: #### C BC, BMP #### [address] Erythrocyte distribution width (RBC) [Ratio] 16.2 % High 11.9-15.3 [facility] Comment on above: Performed By: #### C BC, BMP #### [address] Hematocrit (Bld) [Volume fraction] 30.8 % Low 34.0-46.4 [facility] Comment on above: Performed By: #### C BC, BMP #### [facility] [address] Hemoglobin (Bld) [Mass/Vol] 9.8 g/dL Low 11.8-15.4 [facility] Comment on above: Performed By: #### C BC, BMP #### [facility] [address] Lymphocytes (Bld) [#/Vol] 1.8 10*3/uL Normal 1.00-4.8 [facility] Comment on above: Performed By: #### C BC, BMP #### [address] Lymphocytes/100 WBC (Bld) 18.5 % Normal . [facility] Comment on above: Performed By: #### C MARIA ELENA, BMP #### [address] MCH (RBC) [Entitic mass] 27.6 pg Normal 24.7-34.3 [facility] Comment on above: Performed By: #### C MARIA ELENA, BMP #### [address] MCV (RBC) [Entitic vol] 86.1 fL Normal 80-100 [facility] Comment on above: Performed By: #### C MARIA ELENA, BMP #### [address] Mean Corpuscular HGB Conc 32.0 g/dL Normal 32.0-35.0 [facility] Comment on above: Performed By: #### C BC, BMP #### [place] [address] [place] Monocytes (Bld) [#/Vol] 0.7 10*3/uL Normal 0.0-0.8 [facility] Comment on above: Performed By: #### C BC, BMP #### [place] [address] [place] Monocytes/100 WBC (Bld) 6.9 % Normal . [facility] Comment on above: Performed By: #### C MARIA ELENA, BMP #### [address] [place] [address] [place] Neutrophils (Bld) [#/Vol] 7.2 10*3/uL Normal 1.8-7.7 [facility] Comment on above: Performed By: #### C MARIA ELENA, BMP #### [facility] [address] Neutrophils/100 WBC (Bld) 72.2 % Normal . [facility] Comment on above: Performed By: #### C MARIA ELENA, BMP #### [facility] [address] Nucleated RBC/100 WBC (Bld) [Ratio] 0.0 % Normal 0-0.5 [facility] Comment on above: Performed By: #### C MARIA ELENA, BMP #### [address] Platelet mean volume (Bld) [Entitic vol] 8.3 fL Normal 6.3-10.7 [facility] Comment on above: Performed By: #### C MARIA ELENA, BMP #### [facility] [address] [place] [address] [place] Platelets (Bld) [#/Vol] 258 10*3/uL Normal 150-450 [facility] Comment on above: Performed By: #### C MARIA ELENA, BMP #### [place] [address] [place] RBC (Bld) [#/Vol] 3.57 10*6/uL Low 3.60-5.00 [facility] Comment on above: Performed By: #### C MARIA ELENA, BMP #### [place] [address] [place] WBC (Bld) [#/Vol] 9.9 10*3/uL Normal 4.5-11.0 [facility] Comment on above: Performed By: #### C MARIA ELENA, BMP #### [address] Glucose Poct Glucometerson 0 09-06-2021 Commemt1 Glu2: Cleaned Meter Normal [facility] Comment on above: Result Comment: PERF ORMED BY: [place] [address] PATHOLOGIST DIRECTOR OF MAINTENANCE HEMANT CHÁVEZ M.D. Performed By: #### C BC, BMP #### [address] Glucose [Mass/Vol] 126 mg/dL Normal [facility] Comment on above: Result Comment: [place] om Glucose Reference Range is dependent on time and content of last meal. Glucose of more than 200 mg/dL in a nonstressed, ambulatory subject supports the diagnosis of Diabetes Mellitus. Performed By: #### C BC, BMP #### [address] Commemt1 Glu2: Cleaned Meter Normal [facility] Comment on above: Result Comment: PERF ORMED BY: [place] [address] PATHOLOGIST DIRECTOR OF MAINTENANCE HEMANT CHÁVEZ M.D. Performed By: #### G LULS #### Point of Care testing , Glucose [Mass/Vol] 175 mg/dL Normal [facility] Comment on above: Result Comment: [place] om Glucose Reference Range is dependent on time and content of last meal. Glucose of more than 200 mg/dL in a nonstressed, ambulatory subject supports the diagnosis of Diabetes Mellitus. Performed By: #### G LULS #### Point of Care testing , Glucose [Mass/Vol] 103 mg/dL Normal [facility] Comment on above: Result Comment: [place] om Glucose Reference Range is dependent on time and content of last meal. Glucose of more than 200 mg/dL in a nonstressed, ambulatory subject supports the diagnosis of Diabetes Mellitus. PERFORMED BY: [place] [address] PATHOLOGIST DIRECTOR OF MAINTENANCE HEMANT CHÁVEZ M.D. Performed By: #### C BC, LACTIC, HS TROP, HEPATIC, BMP, LIPASE, BHOB, T4F, TSH3 #### [address] Glucose Poct Glucometerson 0 09-05-2021 Glucose [Mass/Vol] 150 mg/dL Normal [facility] Comment on above: Result Comment: [place] Glucose Reference Range is dependent on time and content of last meal. Glucose of more than 200 mg/dL in a nonstressed, ambulatory subject supports the diagnosis of Diabetes Mellitus. PERFORMED BY: [place] [id number] PATHOLOGIST DIRECTOR OF MAINTENANCE HEMANT CHÁVEZ M.D. Performed By: #### G LULS #### Point of Care testing , Glucose [Mass/Vol] 154 mg/dL Normal [facility] Comment on above: Result Comment: [facility] Glucose Reference Range is dependent on time and content of last meal. Glucose of more than 200 mg/dL in a nonstressed, ambulatory subject supports the diagnosis of Diabetes Mellitus. PERFORMED BY: [place] [id number] PATHOLOGIST DIRECTOR OF MAINTENANCE HEMANT CHÁVEZ M.D. Performed By: #### G LULS #### Point of Care testing , Glucose [Mass/Vol] 145 mg/dL Normal [facility] Comment on above: Result Comment: [facility] Glucose Reference Range is dependent on time and content of last meal. Glucose of more than 200 mg/dL in a nonstressed, ambulatory subject supports the diagnosis of Diabetes Mellitus. PERFORMED BY: [address] [address] PATHOLOGIST DIRECTOR OF MAINTENANCE HEMANT CHÁVEZ M.D. Performed By: #### G LULS #### Point of Care testing , Glucose [Mass/Vol] 167 mg/dL Normal [facility] Comment on above: Result Comment: [facility] Glucose Reference Range is dependent on time and content of last meal. Glucose of more than 200 mg/dL in a nonstressed, ambulatory subject supports the diagnosis of Diabetes Mellitus. PERFORMED BY: [place] [id number] PATHOLOGIST DIRECTOR OF MAINTENANCE HEMANT CHÁVEZ M.D. Performed By: #### C BC, LACTIC, HS TROP, HEPATIC, BMP, LIPASE, BHOB, T4F, TSH3 #### [address] [place] [address] [place] Basic Metabolic Panelon 05-2 Calcium [Mass/Vol] 8.2 mg/dL Normal 8.2-10.2 [facility] Comment on above: Performed By: #### C BC, BMP #### [facility] [address] Chloride [Moles/Vol] 110 mmol/L Normal 95-114 [facility] Comment on above: Performed By: #### C BC, BMP #### [address] CO2 [Moles/Vol] 25.2 mmol/L Normal 22.0-30.0 [facility] Comment on above: Performed By: #### C BC, BMP #### [address] Creatinine [Mass/Vol] 1.23 mg/dL High 0.44-1.03 [facility] Comment on above: Performed By: #### C BC, BMP #### [address] Creatinine Clr Calc Pharmacy 54.94 [facility] Comment on above: Result Comment: PERF ORMED BY: [place] [address] PATHOLOGIST DIRECTOR OF MAINTENANCE HEMANT CHÁVEZ M.D. Performed By: #### C BC, BMP #### [address] Estimated GFR ( Roseline 52 [facility] Comment on above: Result Comment: GFR estimated reference range: According to KDOQI guidelines, <60 ml/min/1.73m2 is sufficient to diagnose a patient with chronic kidney disease. Performed By: #### C BC, BMP #### [place] [address] [place] Estimated GFR (Non- Am 43 [facility] Comment on above: Performed By: #### C BC, BMP #### [address] Glucose [Mass/Vol] 136 mg/dL High 70-100 [facility] Comment on above: Result Comment: [place] Glucose Reference Range is dependent on time and content of last meal. Glucose of more than 200 mg/dL in a nonstressed, ambulatory subject supports the diagnosis of Diabetes Mellitus. ADA recommended reference range Performed By: #### C BC, BMP #### [facility] [address] Potassium [Moles/Vol] 3.3 mmol/L Low 3.5-5.1 [facility] Comment on above: Performed By: #### C BC, BMP #### [facility] [address] Sodium [Moles/Vol] 143 mmol/L Normal 136-146 [facility] Comment on above: Performed By: #### C BC, BMP #### [address] Urea nitrogen [Mass/Vol] 17 mg/dL Normal 9-23 [facility] Comment on above: Performed By: #### C BC, BMP #### [address] Complete Blood Count Auto Di ffon 09-04-2021 Basophils (Bld) [#/Vol] 0.0 10*3/uL Normal 0.0-0.2 [facility] Comment on above: Result Comment: PERF ORMED BY: [place] [address] PATHOLOGIST DIRECTOR OF MAINTENANCE HEMANT CHÁVEZ M.D. Performed By: #### C BC, BMP #### [place] [address] [place] Basophils/100 WBC (Bld) 0.1 % Normal . [facility] Comment on above: Performed By: #### C BC, BMP #### [address] Eosinophils (Bld) [#/Vol] 0.3 10*3/uL Normal 0.0-0.45 [facility] Comment on above: Performed By: #### C BC, BMP #### [address] Eosinophils/100 WBC (Bld) 3.3 % Normal . [facility] Comment on above: Performed By: #### C BC, BMP #### [address] Erythrocyte distribution width (RBC) [Ratio] 16.4 % High 11.9-15.3 [facility] Comment on above: Performed By: #### C BC, BMP #### [address] Hematocrit (Bld) [Volume fraction] 30.1 % Low 34.0-46.4 [facility] Comment on above: Performed By: #### C BC, BMP #### [address] Hemoglobin (Bld) [Mass/Vol] 9.5 g/dL Low 11.8-15.4 [facility] Comment on above: Performed By: #### C BC, BMP #### [address] Lymphocytes (Bld) [#/Vol] 1.1 10*3/uL Normal 1.00-4.8 [facility] Comment on above: Performed By: #### C BC, BMP #### [address] Lymphocytes/100 WBC (Bld) 13.8 % Normal . [facility] Comment on above: Performed By: #### C BC, BMP #### [address] MCH (RBC) [Entitic mass] 27.7 pg Normal 24.7-34.3 [facility] Comment on above: Performed By: #### C BC, BMP #### [address] MCV (RBC) [Entitic vol] 87.3 fL Normal 80-100 [facility] Comment on above: Performed By: #### C BC, BMP #### [place] [address] [place] Mean Corpuscular HGB Conc 31.7 g/dL Low 32.0-35.0 [facility] Comment on above: Performed By: #### C BC, BMP #### [facility] [address] Monocytes (Bld) [#/Vol] 0.6 10*3/uL Normal 0.0-0.8 [facility] Comment on above: Performed By: #### C BC, BMP #### [facility] [address] Monocytes/100 WBC (Bld) 7.8 % Normal . [facility] Comment on above: Performed By: #### C MARIA ELENA, BMP #### [address] Neutrophils (Bld) [#/Vol] 6.0 10*3/uL Normal 1.8-7.7 [facility] Comment on above: Performed By: #### C MARIA ELENA, BMP #### [address] Neutrophils/100 WBC (Bld) 75.0 % Normal . [facility] Comment on above: Performed By: #### C MARIA ELENA, BMP #### [address] Nucleated RBC/100 WBC (Bld) [Ratio] 0.1 % Normal 0-0.5 [facility] Comment on above: Performed By: #### C BC, BMP #### [facility] [address] Platelet mean volume (Bld) [Entitic vol] 8.0 fL Normal 6.3-10.7 [facility] Comment on above: Performed By: #### C BC, BMP #### [facility] [address] [place] [address] [place] Platelets (Bld) [#/Vol] 236 10*3/uL Normal 150-450 [facility] Comment on above: Performed By: #### C BC, BMP #### [facility] [address] [place] [address] [place] RBC (Bld) [#/Vol] 3.45 10*6/uL Low 3.60-5.00 [facility] Comment on above: Performed By: #### C BC, BMP #### [address] WBC (Bld) [#/Vol] 8.0 10*3/uL Normal 4.5-11.0 [facility] Comment on above: Performed By: #### C BC, BMP #### [address] Glucose Poct Glucometerson 0 09-04-2021 Glucose [Mass/Vol] 131 mg/dL Normal [facility] Comment on above: Result Comment: [place] om Glucose Reference Range is dependent on time and content of last meal. Glucose of more than 200 mg/dL in a nonstressed, ambulatory subject supports the diagnosis of Diabetes Mellitus. PERFORMED BY: [place] [address] PATHOLOGIST DIRECTOR OF MAINTENANCE HEMANT CHÁVEZ M.D. Performed By: #### C BC, LACTIC, HS TROP, HEPATIC, BMP, LIPASE, BHOB, T4F, TSH3 #### [address] Commemt1 Glu2: Cleaned Meter [facility] Comment on above: Result Comment: PERF ORMED BY: [place] [address] PATHOLOGIST DIRECTOR OF MAINTENANCE HEMANT CHÁVEZ M.D. Performed By: #### G LULS #### Point of Care testing , Glucose [Mass/Vol] 170 mg/dL Normal [facility] Comment on above: Result Comment: [place] om Glucose Reference Range is dependent on time and content of last meal. Glucose of more than 200 mg/dL in a nonstressed, ambulatory subject supports the diagnosis of Diabetes Mellitus. Performed By: #### G LULS #### Point of Care testing , Commemt1 Glu2: Cleaned Meter [facility] Comment on above: Result Comment: PERF ORMED BY: [facility] [address] [place] [address] PATHOLOGIST DIRECTOR OF MAINTENANCE HEMANT CHÁVEZ M.D. Performed By: #### G LULS #### Point of Care testing , Glucose [Mass/Vol] 141 mg/dL Normal [facility] Comment on above: Result Comment: [place] om Glucose Reference Range is dependent on time and content of last meal. Glucose of more than 200 mg/dL in a nonstressed, ambulatory subject supports the diagnosis of Diabetes Mellitus. Performed By: #### G LULS #### Point of Care testing , Commemt1 Glu2: Cleaned Meter Normal [facility] Comment on above: Result Comment: PERF ORMED BY: [facility] [address] [place] [address] PATHOLOGIST DIRECTOR OF MAINTENANCE HEMANT CHÁVEZ M.D. Performed By: #### G LULS #### Point of Care testing , Glucose [Mass/Vol] 114 mg/dL Normal [facility] Comment on above: Result Comment: [place] Glucose Reference Range is dependent on time and content of last meal. Glucose of more than 200 mg/dL in a nonstressed, ambulatory subject supports the diagnosis of Diabetes Mellitus. Performed By: #### G LULS #### Point of Care testing , Basic Metabolic Panel 08-08 Calcium [Mass/Vol] 8.4 mg/dL Normal 8.2-10.2 [facility] Comment on above: Performed By: #### G LULS #### Point of Care testing , Chloride [Moles/Vol] 111 mmol/L Normal 95-114 [facility] Comment on above: Performed By: #### G LULS #### Point of Care testing , CO2 [Moles/Vol] 26.2 mmol/L Normal 22.0-30.0 [facility] Comment on above: Performed By: #### G LULS #### Point of Care testing , Creatinine [Mass/Vol] 1.37 mg/dL High 0.44-1.03 [facility] Comment on above: Performed By: #### G LULS #### Point of Care testing , Creatinine Clr Calc Pharmacy 48.64 [facility] Comment on above: Result Comment: PERF ORMED BY: [facility] [address] [place] [address] PATHOLOGIST DIRECTOR OF MAINTENANCE HEMANT CHÁVEZ M.D. Performed By: #### G LULS #### Point of Care testing , Estimated GFR ( Roseline 46 [facility] Comment on above: Result Comment: GFR estimated reference range: According to KDOQI guidelines, <60 ml/min/1.73m2 is sufficient to diagnose a patient with chronic kidney disease. Performed By: #### G LULS #### Point of Care testing , Estimated GFR (Non- Am 38 [facility] Comment on above: Performed By: #### G LULS #### Point of Care testing , Glucose [Mass/Vol] 145 mg/dL High 70-100 [facility] Comment on above: Result Comment: [place] Glucose Reference Range is dependent on time and content of last meal. Glucose of more than 200 mg/dL in a nonstressed, ambulatory subject supports the diagnosis of Diabetes Mellitus. ADA recommended reference range Performed By: #### G LULS #### Point of Care testing , Potassium [Moles/Vol] 3.2 mmol/L Low 3.5-5.1 [facility] Comment on above: Performed By: #### G LULS #### Point of Care testing , Sodium [Moles/Vol] 146 mmol/L Normal 136-146 [facility] Comment on above: Performed By: #### G LULS #### Point of Care testing , Urea nitrogen [Mass/Vol] 23 mg/dL Normal 9-23 [facility] Comment on above: Performed By: #### G LULS #### Point of Care testing , Complete Blood Count Auto Di ffon 09-03-2021 Basophils (Bld) [#/Vol] 0.0 10*3/uL Normal 0.0-0.2 [facility] Comment on above: Result Comment: PERF ORMED BY: [facility] [address] [place] [address] PATHOLOGIST DIRECTOR OF MAINTENANCE HEMANT CHÁVEZ M.D. Performed By: #### C BC, LACTIC, HS TROP, HEPATIC, BMP, LIPASE, BHOB, T4F, TSH3 #### [address] Basophils/100 WBC (Bld) 0.1 % Normal . [facility] Comment on above: Performed By: #### C BC, LACTIC, HS TROP, HEPATIC, BMP, LIPASE, BHOB, T4F, TSH3 #### [address] Eosinophils (Bld) [#/Vol] 0.3 10*3/uL Normal 0.0-0.45 [facility] Comment on above: Performed By: #### C BC, LACTIC, HS TROP, HEPATIC, BMP, LIPASE, BHOB, T4F, TSH3 #### [address] Eosinophils/100 WBC (Bld) 3.6 % Normal . [facility] Comment on above: Performed By: #### C BC, LACTIC, HS TROP, HEPATIC, BMP, LIPASE, BHOB, T4F, TSH3 #### [address] Erythrocyte distribution width (RBC) [Ratio] 16.2 % High 11.9-15.3 [facility] Comment on above: Performed By: #### C BC, LACTIC, HS TROP, HEPATIC, BMP, LIPASE, BHOB, T4F, TSH3 #### [address] Hematocrit (Bld) [Volume fraction] 31.9 % Low 34.0-46.4 [facility] Comment on above: Performed By: #### C BC, LACTIC, HS TROP, HEPATIC, BMP, LIPASE, BHOB, T4F, TSH3 #### [address] Hemoglobin (Bld) [Mass/Vol] 10.2 g/dL Low 11.8-15.4 [facility] Comment on above: Performed By: #### C BC, LACTIC, HS TROP, HEPATIC, BMP, LIPASE, BHOB, T4F, TSH3 #### [address] Lymphocytes (Bld) [#/Vol] 1.0 10*3/uL Normal 1.00-4.8 [facility] Comment on above: Performed By: #### C BC, LACTIC, HS TROP, HEPATIC, BMP, LIPASE, BHOB, T4F, TSH3 #### [address] Lymphocytes/100 WBC (Bld) 10.4 % Normal . [facility] Comment on above: Performed By: #### C BC, LACTIC, HS TROP, HEPATIC, BMP, LIPASE, BHOB, T4F, TSH3 #### [address] MCH (RBC) [Entitic mass] 28.0 pg Normal 24.7-34.3 [facility] Comment on above: Performed By: #### C BC, LACTIC, HS TROP, HEPATIC, BMP, LIPASE, BHOB, T4F, TSH3 #### [address] MCV (RBC) [Entitic vol] 87.6 fL Normal 80-100 [facility] Comment on above: Performed By: #### C BC, LACTIC, HS TROP, HEPATIC, BMP, LIPASE, BHOB, T4F, TSH3 #### [address] Mean Corpuscular HGB Conc 31.9 g/dL Low 32.0-35.0 [facility] Comment on above: Performed By: #### C BC, LACTIC, HS TROP, HEPATIC, BMP, LIPASE, BHOB, T4F, TSH3 #### [address] Monocytes (Bld) [#/Vol] 0.7 10*3/uL Normal 0.0-0.8 [facility] Comment on above: Performed By: #### C BC, LACTIC, HS TROP, HEPATIC, BMP, LIPASE, BHOB, T4F, TSH3 #### [facility] [address] Monocytes/100 WBC (Bld) 7.5 % Normal . [facility] Comment on above: Performed By: #### C BC, LACTIC, HS TROP, HEPATIC, BMP, LIPASE, BHOB, T4F, TSH3 #### [facility] [address] Neutrophils (Bld) [#/Vol] 7.2 10*3/uL Normal 1.8-7.7 [facility] Comment on above: Performed By: #### C BC, LACTIC, HS TROP, HEPATIC, BMP, LIPASE, BHOB, T4F, TSH3 #### [facility] [address] Neutrophils/100 WBC (Bld) 78.4 % Normal . [facility] Comment on above: Performed By: #### C BC, LACTIC, HS TROP, HEPATIC, BMP, LIPASE, BHOB, T4F, TSH3 #### [facility] [address] Nucleated RBC/100 WBC (Bld) [Ratio] 0.0 % Normal 0-0.5 [facility] Comment on above: Performed By: #### C BC, LACTIC, HS TROP, HEPATIC, BMP, LIPASE, BHOB, T4F, TSH3 #### [facility] [address] Platelet mean volume (Bld) [Entitic vol] 8.2 fL Normal 6.3-10.7 [facility] Comment on above: Performed By: #### C BC, LACTIC, HS TROP, HEPATIC, BMP, LIPASE, BHOB, T4F, TSH3 #### [facility] [address] [place] [address] [place] Platelets (Bld) [#/Vol] 273 10*3/uL Normal 150-450 [facility] Comment on above: Performed By: #### C BC, LACTIC, HS TROP, HEPATIC, BMP, LIPASE, BHOB, T4F, TSH3 #### [facility] [address] [place] [address] [place] RBC (Bld) [#/Vol] 3.64 10*6/uL Normal 3.60-5.00 [facility] Comment on above: Performed By: #### C BC, LACTIC, HS TROP, HEPATIC, BMP, LIPASE, BHOB, T4F, TSH3 #### [facility] [address] WBC (Bld) [#/Vol] 9.1 10*3/uL Normal 4.5-11.0 [facility] Comment on above: Performed By: #### C BC, LACTIC, HS TROP, HEPATIC, BMP, LIPASE, BHOB, T4F, TSH3 #### [facility] [address] Glucose Poct Glucometerson 0 09-03-2021 Commemt1 Glu2: Cleaned Meter [facility] Comment on above: Result Comment: PERF ORMED BY: [place] [address] PATHOLOGIST DIRECTOR OF MAINTENANCE HEMANT CHÁVEZ M.D. Performed By: #### G LULS #### Point of Care testing , Glucose [Mass/Vol] 152 mg/dL Normal [facility] Comment on above: Result Comment: [place] Glucose Reference Range is dependent on time and content of last meal. Glucose of more than 200 mg/dL in a nonstressed, ambulatory subject supports the diagnosis of Diabetes Mellitus. Performed By: #### G LULS #### Point of Care testing , Commemt1 Glu2: Cleaned Meter Normal [facility] Comment on above: Result Comment: PERF ORMED BY: [place] [address] PATHOLOGIST DIRECTOR OF MAINTENANCE HEMANT CHÁVEZ M.D. Performed By: #### G LULS #### Point of Care testing , Glucose [Mass/Vol] 154 mg/dL Normal [facility] Comment on above: Result Comment: [place] Glucose Reference Range is dependent on time and content of last meal. Glucose of more than 200 mg/dL in a nonstressed, ambulatory subject supports the diagnosis of Diabetes Mellitus. Performed By: #### G LULS #### Point of Care testing , Commemt1 Glu2: Cleaned Meter Normal [facility] Comment on above: Result Comment: PERF ORMED BY: [place] [address] [place] [id number] PATHOLOGIST DIRECTOR OF MAINTENANCE HEMANT CHÁVEZ M.D. Performed By: #### G LULS #### Point of Care testing , Glucose [Mass/Vol] 128 mg/dL Normal [facility] Comment on above: Result Comment: [place] om Glucose Reference Range is dependent on time and content of last meal. Glucose of more than 200 mg/dL in a nonstressed, ambulatory subject supports the diagnosis of Diabetes Mellitus. Performed By: #### G LULS #### Point of Care testing , Glucose [Mass/Vol] 141 mg/dL Normal [facility] Comment on above: Result Comment: [place] om Glucose Reference Range is dependent on time and content of last meal. Glucose of more than 200 mg/dL in a nonstressed, ambulatory subject supports the diagnosis of Diabetes Mellitus. PERFORMED BY: [place] [address] [place] [address] PATHOLOGIST DIRECTOR OF MAINTENANCE HEMANT CHÁVEZ M.D. Performed By: #### G LULS #### Point of Care testing , A1C with Estimated Average [facility] 09-02-2021 Glucose [Mass/Vol] 126 mg/dL Normal [facility] Comment on above: Result Comment: PERF ORMED BY: [place] [address] [place] [id number] PATHOLOGIST DIRECTOR OF MAINTENANCE HEMANT CHÁVEZ M.D. Performed By: #### G LULS #### Point of Care testing , HbA1c (Bld) [Mass fraction] 6.0 % High 4.3-5.6 [facility] Comment on above: Result Comment: Incr eased risk for diabetes: 5.7 - 6.4 diabetes: >6.4 glycemic control for adults with diabetes: <7.0 Performed By: #### G LULS #### Point of Care testing , Basic Metabolic Panelon 08-08 Calcium [Mass/Vol] 8.8 mg/dL Normal 8.2-10.2 [facility] Comment on above: Performed By: #### G STEVIELS #### Point of Care testing , Chloride [Moles/Vol] 113 mmol/L Normal 95-114 [facility] Comment on above: Performed By: #### G LULS #### Point of Care testing , CO2 [Moles/Vol] 20.6 mmol/L Low 22.0-30.0 [facility] Comment on above: Performed By: #### G LULS #### Point of Care testing , Creatinine [Mass/Vol] 1.26 mg/dL High 0.44-1.03 [facility] Comment on above: Performed By: #### G LULS #### Point of Care testing , Creatinine Clr Calc Pharmacy 51.25 [facility] Comment on above: Performed By: #### G LULS #### Point of Care testing , Estimated GFR ( Roseline 51 [facility] Comment on above: Result Comment: GFR estimated reference range: According to KDOQI guidelines, <60 ml/min/1.73m2 is sufficient to diagnose a patient with chronic kidney disease. Performed By: #### G LULS #### Point of Care testing , Estimated GFR (Non- Am 42 [facility] Comment on above: Performed By: #### G LULS #### Point of Care testing , Glucose [Mass/Vol] 112 mg/dL High 70-100 [facility] Comment on above: Result Comment: [place] Glucose Reference Range is dependent on time and content of last meal. Glucose of more than 200 mg/dL in a nonstressed, ambulatory subject supports the diagnosis of Diabetes Mellitus. ADA recommended reference range Performed By: #### G LULS #### Point of Care testing , Potassium [Moles/Vol] 3.7 mmol/L Normal 3.5-5.1 [facility] Comment on above: Performed By: #### G LULS #### Point of Care testing , Sodium [Moles/Vol] 150 mmol/L High 136-146 [facility] Comment on above: Performed By: #### G LULS #### Point of Care testing , Urea nitrogen [Mass/Vol] 31 mg/dL High 9-23 [facility] Comment on above: Performed By: #### G LULS #### Point of Care testing , Complete Blood Count Auto Di ffon 09-02-2021 Basophils (Bld) [#/Vol] 0.0 10*3/uL Normal 0.0-0.2 [facility] Comment on above: Result Comment: PERF ORMED BY: [place] [address] PATHOLOGIST DIRECTOR OF MAINTENANCE HEMANT CHÁVEZ M.D. Performed By: #### G STEVIELS #### Point of Care testing , Basophils/100 WBC (Bld) 0.1 % Normal . [facility] Comment on above: Performed By: #### G STEVIELS #### Point of Care testing , Eosinophils (Bld) [#/Vol] 0.2 10*3/uL Normal 0.0-0.45 [facility] Comment on above: Performed By: #### G LULS #### Point of Care testing , Eosinophils/100 WBC (Bld) 1.5 % Normal . [facility] Comment on above: Performed By: #### G STEVIELS #### Point of Care testing , Erythrocyte distribution width (RBC) [Ratio] 16.3 % High 11.9-15.3 [facility] Comment on above: Performed By: #### G STEVIELS #### Point of Care testing , Hematocrit (Bld) [Volume fraction] 39.3 % Normal 34.0-46.4 [facility] Comment on above: Performed By: #### G LULS #### Point of Care testing , Hemoglobin (Bld) [Mass/Vol] 12.2 g/dL Normal 11.8-15.4 [facility] Comment on above: Performed By: #### G LULS #### Point of Care testing , Lymphocytes (Bld) [#/Vol] 1.1 10*3/uL Normal 1.00-4.8 [facility] Comment on above: Performed By: #### G LULS #### Point of Care testing , Lymphocytes/100 WBC (Bld) 9.0 % Normal . [facility] Comment on above: Performed By: #### G STEVIELS #### Point of Care testing , MCH (RBC) [Entitic mass] 27.5 pg Normal 24.7-34.3 [facility] Comment on above: Performed By: #### G STEVIELS #### Point of Care testing , MCV (RBC) [Entitic vol] 88.2 fL Normal 80-100 [facility] Comment on above: Performed By: #### G STEVIELS #### Point of Care testing , Mean Corpuscular HGB Conc 31.2 g/dL Low 32.0-35.0 [facility] Comment on above: Performed By: #### G STEVIELS #### Point of Care testing , Monocytes (Bld) [#/Vol] 1.0 10*3/uL High 0.0-0.8 [facility] Comment on above: Performed By: #### G STEVIELS #### Point of Care testing , Monocytes/100 WBC (Bld) 8.0 % Normal . [facility] Comment on above: Performed By: #### G WILLEM #### Point of Care testing , Neutrophils (Bld) [#/Vol] 9.9 10*3/uL High 1.8-7.7 [facility] Comment on above: Performed By: #### G STEVIELS #### Point of Care testing , Neutrophils/100 WBC (Bld) 81.4 % Normal . [facility] Comment on above: Performed By: #### G STEVIELS #### Point of Care testing , Nucleated RBC/100 WBC (Bld) [Ratio] 0.1 % Normal 0-0.5 [facility] Comment on above: Performed By: #### G STEVIELS #### Point of Care testing , Platelet mean volume (Bld) [Entitic vol] 8.0 fL Normal 6.3-10.7 [facility] Comment on above: Performed By: #### G WILLEM #### Point of Care testing , Platelets (Bld) [#/Vol] 291 10*3/uL Normal 150-450 [facility] Comment on above: Performed By: #### G LULS #### Point of Care testing , RBC (Bld) [#/Vol] 4.45 10*6/uL Normal 3.60-5.00 [facility] Comment on above: Performed By: #### G LULS #### Point of Care testing , WBC (Bld) [#/Vol] 12.1 10*3/uL High 4.5-11.0 [facility] Comment on above: Performed By: #### G LULS #### Point of Care testing , Glucose Poct Glucometerson 0 09-02-2021 Glucose [Mass/Vol] 124 mg/dL Normal [facility] Comment on above: Result Comment: [place] Glucose Reference Range is dependent on time and content of last meal. Glucose of more than 200 mg/dL in a nonstressed, ambulatory subject supports the diagnosis of Diabetes Mellitus. PERFORMED BY: [facility] [address] [place] [address] PATHOLOGIST DIRECTOR OF MAINTENANCE HEMANT CHÁVEZ M.D. Performed By: #### G LULS #### Point of Care testing , Glucose [Mass/Vol] 130 mg/dL Normal [facility] Comment on above: Result Comment: [facility] Glucose Reference Range is dependent on time and content of last meal. Glucose of more than 200 mg/dL in a nonstressed, ambulatory subject supports the diagnosis of Diabetes Mellitus. PERFORMED BY: [facility] [address] [place] [id number] PATHOLOGIST DIRECTOR OF MAINTENANCE HEMANT CHÁVEZ M.D. Performed By: #### G LULS #### Point of Care testing , Commemt1 Glu2: Cleaned Meter Normal [facility] Comment on above: Result Comment: PERF ORMED BY: [facility] [address] [place] [id number] PATHOLOGIST DIRECTOR OF MAINTENANCE HEMANT CHÁVEZ M.D. Performed By: #### G LULS #### Point of Care testing , Glucose [Mass/Vol] 131 mg/dL Normal [facility] Comment on above: Result Comment: [place] om Glucose Reference Range is dependent on time and content of last meal. Glucose of more than 200 mg/dL in a nonstressed, ambulatory subject supports the diagnosis of Diabetes Mellitus. Performed By: #### G LULS #### Point of Care testing , Commemt1 Glu2: Cleaned Meter Normal [facility] Comment on above: Result Comment: PERF ORMED BY: [place] [address] PATHOLOGIST DIRECTOR OF MAINTENANCE HEMANT CHÁVEZ M.D. Performed By: #### C BC, BMP #### [address] Glucose [Mass/Vol] 107 mg/dL Normal [facility] Comment on above: Result Comment: [place] om Glucose Reference Range is dependent on time and content of last meal. Glucose of more than 200 mg/dL in a nonstressed, ambulatory subject supports the diagnosis of Diabetes Mellitus. Performed By: #### C BC, BMP #### [address] Thyroid Stimulating Hormoneo n 09-02-2021 TSH Qn 7.55 m[IU]/L High 0.45-5.33 [facility] Comment on above: Performed By: #### G LULS #### Point of Care testing , Troponin I High Sensitivityo n 09-02-2021 Troponin I High Sensitivity 31 pg/mL High 0-15 [facility] Comment on above: Result Comment: PERF ORMED BY: [place] [address] PATHOLOGIST DIRECTOR OF MAINTENANCE HEMANT CHÁVEZ M.D. Performed By: #### G LULS #### Point of Care testing , Vit. B12/Folate Profileon Cobalamin (Vitamin B12) [Mass/Vol] 187 pg/mL Normal 180-914 [facility] Comment on above: Performed By: #### G LULS #### Point of Care testing , Folate 9.3 ng/mL Normal >5.9 [facility] Comment on above: Result Comment: Marjorie te reference range: >5.9 ng/ml The WHO technical consultation on folate and vitamin b12 deficiencies has determined that folate concentrations less than 4 ng/ml are considered deficient. Performed By: #### G LULS #### Point of Care testing , Vitamin D 25 Hydroxy Totalon 09-02-2021 Vitamin D 25 Hydroxy Total 16.6 ng/mL Low 30-100 [facility] Comment on above: Result Comment: MIHAELA MIN D STATUS 25(OH)VITAMIN D RANGE (ng/mL) Deficient <20 Insufficient 20 to <30 Sufficient 30 to 100 Reference: Jayce MF,Arnoldo NC, Hossein DOMINIQUE, et al. Evaluation,treatment, and prevention of vitamin D deficiency; an Endocrine Society clinical practice guideline. JCEM. 2010; 96(7):1911-30. PERFORMED BY: [facility] [address] [place] [address] PATHOLOGIST DIRECTOR OF MAINTENANCE HEMANT CHÁVEZ M.D. Performed By: #### G LULS #### Point of Care testing , Basic Metabolic Panelon 08-08 Calcium [Mass/Vol] 8.8 mg/dL Normal 8.2-10.2 [facility] Comment on above: Performed By: #### G LULS #### Point of Care testing , Chloride [Moles/Vol] 106 mmol/L Normal 95-114 [facility] Comment on above: Performed By: #### G LULS #### Point of Care testing , CO2 [Moles/Vol] 23.9 mmol/L Normal 22.0-30.0 [facility] Comment on above: Performed By: #### G LULS #### Point of Care testing , Creatinine [Mass/Vol] 1.62 mg/dL High 0.44-1.03 [facility] Comment on above: Performed By: #### G LULS #### Point of Care testing , Creatinine Clr Calc Pharmacy 39.63 [facility] Comment on above: Performed By: #### G LULS #### Point of Care testing , Estimated GFR ( Roseline 38 [facility] Comment on above: Result Comment: GFR estimated reference range: According to KDOQI guidelines, <60 ml/min/1.73m2 is sufficient to diagnose a patient with chronic kidney disease. Performed By: #### G LULS #### Point of Care testing , Estimated GFR (Non- Am 32 Normal [facility] Comment on above: Performed By: #### G LULS #### Point of Care testing , Glucose [Mass/Vol] 158 mg/dL High 70-100 [facility] Comment on above: Result Comment: [place] Glucose Reference Range is dependent on time and content of last meal. Glucose of more than 200 mg/dL in a nonstressed, ambulatory subject supports the diagnosis of Diabetes Mellitus. ADA recommended reference range Performed By: #### G LULS #### Point of Care testing , Potassium [Moles/Vol] 3.1 mmol/L Low 3.5-5.1 [facility] Comment on above: Performed By: #### G LULS #### Point of Care testing , Sodium [Moles/Vol] 146 mmol/L Normal 136-146 [facility] Comment on above: Performed By: #### G LULS #### Point of Care testing , Urea nitrogen [Mass/Vol] 41 mg/dL High 9-23 [facility] Comment on above: Performed By: #### G LULS #### Point of Care testing , Beta Hydroxybuterateon 09-01 Beta Hydroxybuterate 2.73 mmol/L High 0.05-0.27 [facility] Comment on above: Performed By: #### G LULS #### Point of Care testing , COVID-19 Antigenon COVID-19 Antigen Healthcare Worker?: Y Reference Range: [...] developed and its performance characteristic determined by [employer] and validated at [facility]. This test has not been FDA cleared [...] for SARS Antigen by JW PERFORMED BY: [facility] [address] [place] [address] PATHOLOGIST DIRECTOR OF MAINTENANCE HEMANT CHÁVEZ M.D. Normal [facility] Comment on above: Performed By: #### G LULS #### Point of Care testing , COVID-19 [facility] 09-01-2021 SARS-CoV-2 (COVID-19) RNA NAILA+probe Ql (Unsp spec) Negative Normal Negative [facility] Comment on above: Order Comment: Healt hcare Worker?: Y Result Comment: Testing for SARS-CoV-2 by RT-PCR This test was developed and its performance characteristics determined by [employer] and validated at the [facility]. This test has not been FDA cleared [...] is terminated or revoked sooner. PERFORMED BY: [place] [address] PATHOLOGIST DIRECTOR OF MAINTENANCE HEMANT CHÁVEZ M.D. Performed By: #### G LULS #### Point of Care testing , CT abdomen pelvis w conon CT abdomen pelvis w con [facility] [place] [address] [place] [id number] [address] Scan Report Signed Patient: Jeanmarie Garcia MR#: [id number] : 1950 Acct:[id number] Age/Sex: 71 / F ADM Date: 09/01/21 Loc: ER Room: Type: [facility] ER Attending Dr: Ordering Provider: [...] Gerson White M.D.09/01/2021 2:24 PM Dictation Location: [place] [address] Transcribed By: [facility] 09/01/21 1424 Dictated By: Gerson White DO 09/01/21 1413 Signed By: 09/01/21 [address] [facility] [address] head/brain wo conon 09-01 CT head/brain wo con [facility] [place] [address] CT Scan Report Signed Patient: Jeanmarie Garcia MR#: [id number] : 1950 Acct:[id number] Age/Sex: 71 / F ADM Date: 09/01/21 Loc: Room: [address] [place] [address] Type: ADM IN Attending Dr: Elizabet Wilson [...] Perez Jr., M.D.09/01/2021 4:50 PM Dictation Location: [place] [address] Transcribed By: [facility] 09/01/21 1650 Dictated By: Kana Perez Jr, MD 09/01/21 1645 Signed By: 09/01/21 165 Normal [facility] Complete Blood Count Auto Di ffon 09-01-2021 Basophils (Bld) [#/Vol] 0.0 10*3/uL Normal 0.0-0.2 [facility] Comment on above: Result Comment: PERF ORMED BY: [place] [address] PATHOLOGIST DIRECTOR OF MAINTENANCE HEMANT CHÁVEZ M.D. Performed By: #### C BC, LACTIC, HS TROP, HEPATIC, BMP, LIPASE, BHOB, T4F, TSH3 #### [address] Basophils/100 WBC (Bld) 0.3 % Normal . [facility] Comment on above: Performed By: #### C BC, LACTIC, HS TROP, HEPATIC, BMP, LIPASE, BHOB, T4F, TSH3 #### [address] Eosinophils (Bld) [#/Vol] 0.0 10*3/uL Normal 0.0-0.45 [facility] Comment on above: Performed By: #### C BC, LACTIC, HS TROP, HEPATIC, BMP, LIPASE, BHOB, T4F, TSH3 #### [address] Eosinophils/100 WBC (Bld) 0.1 % Normal . [facility] Comment on above: Performed By: #### C BC, LACTIC, HS TROP, HEPATIC, BMP, LIPASE, BHOB, T4F, TSH3 #### [address] Erythrocyte distribution width (RBC) [Ratio] 16.1 % High 11.9-15.3 [facility] Comment on above: Performed By: #### C BC, LACTIC, HS TROP, HEPATIC, BMP, LIPASE, BHOB, T4F, TSH3 #### [address] Hematocrit (Bld) [Volume fraction] 37.3 % Normal 34.0-46.4 [facility] Comment on above: Performed By: #### C BC, LACTIC, HS TROP, HEPATIC, BMP, LIPASE, BHOB, T4F, TSH3 #### [address] Hemoglobin (Bld) [Mass/Vol] 11.7 g/dL Low 11.8-15.4 [facility] Comment on above: Performed By: #### C BC, LACTIC, HS TROP, HEPATIC, BMP, LIPASE, BHOB, T4F, TSH3 #### [address] Lymphocytes (Bld) [#/Vol] 1.5 10*3/uL Normal 1.00-4.8 [facility] Comment on above: Performed By: #### C BC, LACTIC, HS TROP, HEPATIC, BMP, LIPASE, BHOB, T4F, TSH3 #### [address] Lymphocytes/100 WBC (Bld) 9.1 % Normal . [facility] Comment on above: Performed By: #### C BC, LACTIC, HS TROP, HEPATIC, BMP, LIPASE, BHOB, T4F, TSH3 #### [address] MCH (RBC) [Entitic mass] 27.4 pg Normal 24.7-34.3 [facility] Comment on above: Performed By: #### C BC, LACTIC, HS TROP, HEPATIC, BMP, LIPASE, BHOB, T4F, TSH3 #### [address] MCV (RBC) [Entitic vol] 87.3 fL Normal 80-100 [facility] Comment on above: Performed By: #### C BC, LACTIC, HS TROP, HEPATIC, BMP, LIPASE, BHOB, T4F, TSH3 #### [address] Mean Corpuscular HGB Conc 31.3 g/dL Low 32.0-35.0 [facility] Comment on above: Performed By: #### C BC, LACTIC, HS TROP, HEPATIC, BMP, LIPASE, BHOB, T4F, TSH3 #### [address] Monocytes (Bld) [#/Vol] 1.4 10*3/uL High 0.0-0.8 [facility] Comment on above: Performed By: #### C BC, LACTIC, HS TROP, HEPATIC, BMP, LIPASE, BHOB, T4F, TSH3 #### [address] Monocytes/100 WBC (Bld) 8.6 % Normal . [facility] Comment on above: Performed By: #### C BC, LACTIC, HS TROP, HEPATIC, BMP, LIPASE, BHOB, T4F, TSH3 #### [address] Neutrophils (Bld) [#/Vol] 13.2 10*3/uL High 1.8-7.7 [facility] Comment on above: Performed By: #### C BC, LACTIC, HS TROP, HEPATIC, BMP, LIPASE, BHOB, T4F, TSH3 #### [address] Neutrophils/100 WBC (Bld) 81.9 % Normal . [facility] Comment on above: Performed By: #### C BC, LACTIC, HS TROP, HEPATIC, BMP, LIPASE, BHOB, T4F, TSH3 #### [place] [address] [place] Nucleated RBC/100 WBC (Bld) [Ratio] 0.0 % Normal 0-0.5 [facility] Comment on above: Performed By: #### C BC, LACTIC, HS TROP, HEPATIC, BMP, LIPASE, BHOB, T4F, TSH3 #### [facility] [address] Platelet mean volume (Bld) [Entitic vol] 7.9 fL Normal 6.3-10.7 [facility] Comment on above: Performed By: #### C BC, LACTIC, HS TROP, HEPATIC, BMP, LIPASE, BHOB, T4F, TSH3 #### [facility] [address] Platelets (Bld) [#/Vol] 317 10*3/uL Normal 150-450 [facility] Comment on above: Performed By: #### C BC, LACTIC, HS TROP, HEPATIC, BMP, LIPASE, BHOB, T4F, TSH3 #### [address] RBC (Bld) [#/Vol] 4.27 10*6/uL Normal 3.60-5.00 [facility] Comment on above: Performed By: #### C BC, LACTIC, HS TROP, HEPATIC, BMP, LIPASE, BHOB, T4F, TSH3 #### [address] WBC (Bld) [#/Vol] 16.1 10*3/uL High 4.5-11.0 [facility] Comment on above: Performed By: #### C BC, LACTIC, HS TROP, HEPATIC, BMP, LIPASE, BHOB, T4F, TSH3 #### [address] Dipstick and Microscopicon 0 09-01-2021 Bacteria,Urine None Seen Normal None Seen [facility] Comment on above: Order Comment: Name Collection Type:: Straight Catheter Performed By: #### C BC, BMP #### [address] Hyaline Casts,Urine 20-49 High 0-1 [facility] Comment on above: Order Comment: Name Collection Type:: Straight Catheter Performed By: #### C BC, BMP #### [address] Other Casts,Urine None Seen Normal None Seen [facility] Comment on above: Order Comment: Name Collection Type:: Straight Catheter Performed By: #### C BC, BMP #### [facility] [address] [place], [place] [id number] [place] RBC,Urine 3-4 Normal 0-4 [facility] Comment on above: Order Comment: Name Collection Type:: Straight Catheter Performed By: #### C BC, BMP #### [facility] [address] [place], [place] [id number] [place] Renal Epithelial Cells,Urine None Seen Normal 0-1 [facility] Comment on above: Order Comment: Name Collection Type:: Straight Catheter Performed By: #### C BC, BMP #### [place] [address] [place] Squamous Epithelial Cell,Urine 20-30 High 0-2 [facility] Comment on above: Order Comment: Name Collection Type:: Straight Catheter Performed By: #### C BC, BMP #### [place] [id number] [place] WBC,Urine 10-19 High 0-4 [facility] Comment on above: Order Comment: Name Collection Type:: Straight Catheter Performed By: #### C BC, BMP #### [facility] [address] [place] [address] [place] Yeast,Urine None Seen Normal None Seen [facility] Comment on above: Order Comment: Name Collection Type:: Straight Catheter Result Comment: PERF ORMED BY: [place] [address] PATHOLOGIST DIRECTOR OF MAINTENANCE HEMANT CHÁVEZ M.D. Performed By: #### C BC, BMP #### [place] [address] [place] ECG 12 lead ECGon 09-01-2021 [address] [facility] Main [place] [address] [place] [address] Electrocardiograph Report Signed Patient: Jeanmarie Garcia MR#: [id number] : 1950 Acct:[id number] Age/Sex: 71 / F ADM Date: 09/01/21 Loc: Room: [address] [place] [address] Type: DIS IN Attending Dr: Martin Arevalo [...] 470 ms Confirmed by Delon Bahena DO ([id number]) on 09/01/2021 7:47:06 PM Referred By: Electronically Signed By:Delon Bahena DO Transcribed By: MUS Signed By Delon Bahena DO 09/01 [facility] Free T4 (Free Thyroxine)on 0 09-01-2021 Free T4 [Mass/Vol] 0.76 ng/dL Normal 0.61-1.12 [facility] Comment on above: Performed By: #### G LULS #### Point of Care testing , Glucose Poct Glucometerson 0 09-01-2021 Commemt1 Glu2: Cleaned Meter [facility] Comment on above: Result Comment: PERF ORMED BY: [facility] [address] [place] [address] PATHOLOGIST DIRECTOR OF MAINTENANCE HEMANT CHÁVEZ M.D. Performed By: #### G LULS #### Point of Care testing , Glucose [Mass/Vol] 128 mg/dL [facility] Comment on above: Result Comment: [facility] Glucose Reference Range is dependent on time and content of last meal. Glucose of more than 200 mg/dL in a nonstressed, ambulatory subject supports the diagnosis of Diabetes Mellitus. Performed By: #### G LULS #### Point of Care testing , Hepatic Panelon 09-01-2021 Albumin [Mass/Vol] 2.8 g/dL Low 3.2-5.5 [facility] Comment on above: Performed By: #### G LULS #### Point of Care testing , Albumin/Globulin [Mass ratio] 0.5 {ratio} [facility] Comment on above: Performed By: #### G STEVIELS #### Point of Care testing , ALP [Catalytic activity/Vol] 88 U/L Normal 32-92 [facility] Comment on above: Performed By: #### G STEVIELS #### Point of Care testing , ALT [Catalytic activity/Vol] 16 U/L Normal 10-60 [facility] Comment on above: Performed By: #### G STEVIELS #### Point of Care testing , AST [Catalytic activity/Vol] 30 U/L Normal 10-42 [facility] Comment on above: Performed By: #### G STEVIELS #### Point of Care testing , Bilirubin [Mass/Vol] 1.2 mg/dL Normal 0.3-1.2 [facility] Comment on above: Performed By: #### G STEVIELS #### Point of Care testing , Bilirubin,Indirect 1.0 mg/dL Normal [facility] Comment on above: Performed By: #### G STEVIELS #### Point of Care testing , Bilirubin.indirect [Mass/Vol] 0.2 mg/dL Normal 0.0-0.4 [facility] Comment on above: Performed By: #### G STEVIELS #### Point of Care testing , Globulin (S) [Mass/Vol] 5.1 g/dL Normal [facility] Comment on above: Performed By: #### G STEVIELS #### Point of Care testing , Protein [Mass/Vol] 7.9 g/dL Normal 6.1-7.9 [facility] Comment on above: Performed By: #### G STEVIELS #### Point of Care testing , Lactic Acidon 09-01-2021 Lactate [Moles/Vol] 1.5 mmol/L Normal 0.5-2.2 [facility] Comment on above: Result Comment: PERF ORMED BY: [facility] [place] [address] PATHOLOGIST DIRECTOR OF MAINTENANCE HEMANT CHÁVEZ M.D. Performed By: #### C BC, LACTIC, HS TROP, HEPATIC, BMP, LIPASE, BHOB, T4F, TSH3 #### [facility] [address] [place] [id number] [facility] Lipaseon 09-01-2021 Lipase [Catalytic activity/Vol] 25.0 U/L Normal 22-51 [facility] Comment on above: Performed By: #### G LULS #### Point of Care testing , Magnesiumon 09-01-2021 Magnesium [Mass/Vol] 2.4 mg/dL Normal 1.6-2.6 [facility] Comment on above: Order Comment: Comme nt add on to prior labs Result Comment: PERF ORMED BY: [place] [address] PATHOLOGIST DIRECTOR OF MAINTENANCE HEMANT CHÁVEZ M.D. Performed By: #### C BC, LACTIC, HS TROP, HEPATIC, BMP, LIPASE, BHOB, T4F, TSH3 #### [facility] [address] Holley Ag Negativeon 09-02-19 22 Holley Ag Negative Negative Normal Negative [facility] Comment on above: Result Comment: This is a duplicate Holley SARS Antigen (JW) result to be used for statistical tracking purpose only. PERFORMED BY: [place] [address] PATHOLOGIST DIRECTOR OF MAINTENANCE HEMANT CHÁVEZ M.D. Performed By: #### G LULS #### Point of Care testing , Thyroid Stimulating Hormoneo n 09-01-2021 TSH Qn 3.09 m[IU]/L Normal 0.45-5.33 [facility] Comment on above: Result Comment: PERF ORMED BY: [place] [address] PATHOLOGIST DIRECTOR OF MAINTENANCE HEMANT CHÁVEZ M.D. Performed By: #### G LULS #### Point of Care testing , Troponin I High Sensitivityo n 09-01-2021 Troponin I High Sensitivity 29 pg/mL High 0-15 [facility] Comment on above: Result Comment: PERF ORMED BY: [place] [address] PATHOLOGIST DIRECTOR OF MAINTENANCE HEMANT CÁHVEZ M.D. Performed By: #### G LULS #### Point of Care testing , Troponin I High Sensitivity 25 pg/mL High 0-15 [facility] Comment on above: Result Comment: PERF ORMED BY: [place] [address] PATHOLOGIST DIRECTOR OF MAINTENANCE HEMANT CHÁVEZ M.D. Performed By: #### C BC, LACTIC, HS TROP, HEPATIC, BMP, LIPASE, BHOB, T4F, TSH3 #### [facility] [address] [place] [address] [place] Urinalysison 09-01-2021 Appearance (U) Cloudy Critically abnormal Clear [facility] Comment on above: Order Comment: Name Collection Type:: Straight Catheter Performed By: #### C BC, BMP #### [facility] [address] [place] [address] Bilirubin,Urine Negative Normal Negative [facility] Comment on above: Order Comment: Name Collection Type:: Straight Catheter Performed By: #### C BC, BMP #### [facility] [address] [place] [address] Color (U) Yellow Normal Yellow [facility] Comment on above: Order Comment: Name Collection Type:: Straight Catheter Performed By: #### C BC, BMP #### [facility] [address] [place] [address] Glucose Ql (U) Normal Normal Normal [facility] Comment on above: Order Comment: Name Collection Type:: Straight Catheter Performed By: #### C BC, BMP #### [facility] [address] [place] [address] [place] Ketones Ql (U) 1+ High Negative [facility] Comment on above: Order Comment: Name Collection Type:: Straight Catheter Performed By: #### C BC, BMP #### [facility] [address] [place] [address] Leukocyte esterase Test strip Ql (U) Negative Normal Negative [facility] Comment on above: Order Comment: Name Collection Type:: Straight Catheter Performed By: #### C BC, BMP #### [facility] [address] [place] [address] Nitrite,Urine Negative Normal Negative [facility] Comment on above: Order Comment: Name Collection Type:: Straight Catheter Performed By: #### C BC, BMP #### [address] Occult Blood,Urine 2+ High Negative [facility] Comment on above: Order Comment: Name Collection Type:: Straight Catheter Result Comment: PERF ORMED BY: [place] [address] PATHOLOGIST DIRECTOR OF MAINTENANCE HEMANT CHÁVEZ M.D. Performed By: #### C BC, BMP #### [address] pH (U) 5.5 [pH] Normal 5.0-9.0 [facility] Comment on above: Order Comment: Name Collection Type:: Straight Catheter Performed By: #### C BC, BMP #### [address] Protein (U) [Mass/Vol] 300 mg/dL High Negative [facility] Comment on above: Order Comment: Name Collection Type:: Straight Catheter Performed By: #### C BC, BMP #### [address] Specificy [place],Urine 1.026 Normal 1.001-1.030 [facility] Comment on above: Order Comment: Name Collection Type:: Straight Catheter Performed By: #### C BC, BMP #### [facility] [address] [place] [address] Urobilinogen,Urine Normal Normal Normal [facility] Comment on above: Order Comment: Name Collection Type:: Straight Catheter Performed By: #### C BC, BMP #### [facility] [address] [place] [address] Urine Cultureon 09-01-2021 Bacteria identified Cx Nom (U) ORGANISM: Klebsiella pneumoniae (O:KLEPNE) Redby Count 75,000 Aerobic MANAV Charge (NUC86) --- [...] RESISTANT TO ALL B-LACTAM DRUGS. PERFORMED BY: [place] [address] PATHOLOGIST DIRECTOR OF MAINTENANCE HEMANT CHÁVEZ M.D. [facility] Comment on above: Performed By: #### C BC, BMP #### [address] Venous Blood Gason CO2 [Moles/Vol] 23.6 mmol/L Low 24.0-29.0 [facility] Comment on above: Performed By: #### G LULS #### Point of Care testing , HCO3 (Bld) [Moles/Vol] 22.6 mmol/L Low 23.0-29.0 [facility] Comment on above: Performed By: #### G LULS #### Point of Care testing , Respiratory Critical Normal [facility] Comment on above: Result Comment: Crit ical Value called on: 09/01/2021 at 12:46 PERFORMED BY: [address] [address] PATHOLOGIST DIRECTOR OF MAINTENANCE HEMANT CHÁVEZ M.D. Performed By: #### G LULS #### Point of Care testing , VBG Base Excess -0.6 mmol/L Normal -3.0-3.0 [facility] Comment on above: Performed By: #### G LULS #### Point of Care testing , VBG Draw Site Venous Normal [facility] Comment on above: Performed By: #### G LULS #### Point of Care testing , VBG Frac Inspired O2 21 % Normal [facility] Comment on above: Performed By: #### G LULS #### Point of Care testing , VBG O2 Content 7.7 mmol/L Normal 6.6-9.7 [facility] Comment on above: Performed By: #### G LULS #### Point of Care testing , VBG Oxygen Saturation 97.1 % Off scale high 73.0-76.0 [facility] Comment on above: Performed By: #### G LULS #### Point of Care testing , VBG PCO2 32.8 mm[Hg] Low 38.0-50.0 [facility] Comment on above: Performed By: #### G LULS #### Point of Care testing , VBG PH Venous PH 7.46 High 7.32-7.43 [facility] Comment on above: Performed By: #### G LULS #### Point of Care testing , VBG PO2 88.4 mm[Hg] Off scale high 35.0-45.0 [facility] Comment on above: Performed By: #### G LULS #### Point of Care testing , XR chest 1V portableon 09-[address] [facility] Main [address] [address] XRay Report Signed Patient: Jeanmarie Garcia MR#: [id number] : 1950 Acct:[id number] Age/Sex: 71 / F ADM Date: 09/01/21 [...] Gerson White M.D.09/01/2021 12:02 PM Dictation Location: [id number] Transcribed By: [facility] 09/01/21 1202 Dictated By: Gerson White DO 09/01/21 1200 Signed By: 09/01/21 1202 [facility] Glucose Poct Glucometerson 0 08-25-2021 Commemt1 Glu2: Cleaned Meter [facility] Comment on above: Result Comment: PERF ORMED BY: [place] [address] PATHOLOGIST DIRECTOR OF MAINTENANCE HEMANT CHÁVEZ M.D. Performed By: #### C BC, LACTIC, HS TROP, HEPATIC, BMP, LIPASE, BHOB, T4F, TSH3 #### [address] Glucose [Mass/Vol] 143 mg/dL Normal [facility] Comment on above: Result Comment: [facility] Glucose Reference Range is dependent on time and content of last meal. Glucose of more than 200 mg/dL in a nonstressed, ambulatory subject supports the diagnosis of Diabetes Mellitus. Performed By: #### C BC, LACTIC, HS TROP, HEPATIC, BMP, LIPASE, BHOB, T4F, TSH3 #### [facility] [address] [place] [address] Basic Metabolic Panelon 08-07 Calcium [Mass/Vol] 8.4 mg/dL Normal 8.2-10.2 [facility] Comment on above: Performed By: #### C BC, LACTIC, HS TROP, HEPATIC, BMP, LIPASE, BHOB, T4F, TSH3 #### [address] Chloride [Moles/Vol] 102 mmol/L Normal 95-114 [facility] Comment on above: Performed By: #### C BC, LACTIC, HS TROP, HEPATIC, BMP, LIPASE, BHOB, T4F, TSH3 #### [address] CO2 [Moles/Vol] 26.5 mmol/L Normal 22.0-30.0 [facility] Comment on above: Performed By: #### C BC, LACTIC, HS TROP, HEPATIC, BMP, LIPASE, BHOB, T4F, TSH3 #### [address] Creatinine [Mass/Vol] 1.03 mg/dL Normal 0.44-1.03 [facility] Comment on above: Performed By: #### C BC, LACTIC, HS TROP, HEPATIC, BMP, LIPASE, BHOB, T4F, TSH3 #### [address] Creatinine Clr Calc Pharmacy 59.91 [facility] Comment on above: Performed By: #### C BC, LACTIC, HS TROP, HEPATIC, BMP, LIPASE, BHOB, T4F, TSH3 #### [address] Estimated GFR ( Roseline > 60 [facility] Comment on above: Result Comment: GFR estimated reference range: According to KDOQI guidelines, <60 ml/min/1.73m2 is sufficient to diagnose a patient with chronic kidney disease. Performed By: #### C BC, LACTIC, HS TROP, HEPATIC, BMP, LIPASE, BHOB, T4F, TSH3 #### [address] Estimated GFR (Non- Am 53 [facility] Comment on above: Performed By: #### C BC, LACTIC, HS TROP, HEPATIC, BMP, LIPASE, BHOB, T4F, TSH3 #### [address] Glucose [Mass/Vol] 148 mg/dL High 70-100 [facility] Comment on above: Result Comment: [place] om Glucose Reference Range is dependent on time and content of last meal. Glucose of more than 200 mg/dL in a nonstressed, ambulatory subject supports the diagnosis of Diabetes Mellitus. ADA recommended reference range Performed By: #### C BC, LACTIC, HS TROP, HEPATIC, BMP, LIPASE, BHOB, T4F, TSH3 #### [facility] [address] Potassium [Moles/Vol] 3.8 mmol/L Normal 3.5-5.1 [facility] Comment on above: Performed By: #### C BC, LACTIC, HS TROP, HEPATIC, BMP, LIPASE, BHOB, T4F, TSH3 #### [facility] [address] Sodium [Moles/Vol] 137 mmol/L Normal 136-146 [facility] Comment on above: Performed By: #### C BC, LACTIC, HS TROP, HEPATIC, BMP, LIPASE, BHOB, T4F, TSH3 #### [facility] [address] [place] [phone] [place] Urea nitrogen [Mass/Vol] 12 mg/dL Normal 9-23 [facility] Comment on above: Performed By: #### C BC, LACTIC, HS TROP, HEPATIC, BMP, LIPASE, BHOB, T4F, TSH3 #### [facility] [address] Glucose Poct Glucometerson 0 08-24-2021 Commemt1 Glu2: Cleaned Meter Normal [facility] Comment on above: Result Comment: PERF ORMED BY: [place] [address] PATHOLOGIST DIRECTOR OF MAINTENANCE HEMANT CHÁVEZ M.D. Performed By: #### C BC, LACTIC, HS TROP, HEPATIC, BMP, LIPASE, BHOB, T4F, TSH3 #### [facility] [address] [place] [id number] [facility] Glucose [Mass/Vol] 239 mg/dL Normal [facility] Comment on above: Result Comment: [place] om Glucose Reference Range is dependent on time and content of last meal. Glucose of more than 200 mg/dL in a nonstressed, ambulatory subject supports the diagnosis of Diabetes Mellitus. Performed By: #### C BC, LACTIC, HS TROP, HEPATIC, BMP, LIPASE, BHOB, T4F, TSH3 #### [facility] [address] Commemt1 Glu2: Cleaned Meter Normal [facility] Comment on above: Result Comment: PERF ORMED BY: [facility] [address] [place] [address] PATHOLOGIST DIRECTOR OF MAINTENANCE HEMANT CHÁVEZ M.D. Performed By: #### C BC, BMP #### [address] Glucose [Mass/Vol] 191 mg/dL Normal [facility] Comment on above: Result Comment: [place] om Glucose Reference Range is dependent on time and content of last meal. Glucose of more than 200 mg/dL in a nonstressed, ambulatory subject supports the diagnosis of Diabetes Mellitus. Performed By: #### C BC, BMP #### [address] Glucose [Mass/Vol] 149 mg/dL Normal [facility] Comment on above: Result Comment: [place] om Glucose Reference Range is dependent on time and content of last meal. Glucose of more than 200 mg/dL in a nonstressed, ambulatory subject supports the diagnosis of Diabetes Mellitus. PERFORMED BY: [place] [address] PATHOLOGIST DIRECTOR OF MAINTENANCE HEMANT CHÁVEZ M.D. Performed By: #### C BC, BMP #### [address] Glucose [Mass/Vol] 177 mg/dL Normal [facility] Comment on above: Result Comment: [place] om Glucose Reference Range is dependent on time and content of last meal. Glucose of more than 200 mg/dL in a nonstressed, ambulatory subject supports the diagnosis of Diabetes Mellitus. PERFORMED BY: [place] [address] PATHOLOGIST DIRECTOR OF MAINTENANCE HEMANT CHÁVEZ M.D. Performed By: #### C BC, LACTIC, HS TROP, HEPATIC, BMP, LIPASE, BHOB, T4F, TSH3 #### [address] HCV Ab with Rfx to NAAon HCV Ab with Reflex to Qual NAILA <0.1 Normal 0.0-0.9 [facility] Comment on above: Order Comment: Which is this, the Source or the Person with the Exposure?: SOURCE Source Medical Record: [id number] Exposed Performed By: #### C BC, BMP #### [address] Interpretation Normal . [facility] Comment on above: Order Comment: Which is this, the Source or the Person with the Exposure?: SOURCE Source Medical Record: [id number] Exposed Result Comment: Nega tive Not infected with HCV, unless recent infection is suspected or other evidence exists to indicate HCV infection. Performed at: - [facility] [id number] Greenhouse Manager: Spencer Mcdaniels PhD, Phone: [phone] PERFORMED BY: [place] [address] PATHOLOGIST DIRECTOR OF MAINTENANCE HEMANT CHÁVEZ M.D. Performed By: #### C BC, BMP #### [address] HIV Screen ([facility])on HIV Screen ([facility]) Non-Reactive Normal Nonreactive [facility] Comment on above: Order Comment: Which is this, the Source or the Person with the Exposure?: SOURCE Source Medical Record: [id number] Exposed Result Comment: PERF ORMED BY: [place] [address] PATHOLOGIST DIRECTOR OF MAINTENANCE HEMANT CHÁVEZ M.D. Performed By: #### C BC, BMP #### [address] Hemogram CBC Without Diffon 08-24-2021 Erythrocyte distribution width (RBC) [Ratio] 15.5 % High 11.9-15.3 [facility] Comment on above: Performed By: #### C BC, LACTIC, HS TROP, HEPATIC, BMP, LIPASE, BHOB, T4F, TSH3 #### [address] Hematocrit (Bld) [Volume fraction] 35.5 % Normal 34.0-46.4 [facility] Comment on above: Performed By: #### C BC, LACTIC, HS TROP, HEPATIC, BMP, LIPASE, BHOB, T4F, TSH3 #### [address] Hemoglobin (Bld) [Mass/Vol] 11.3 g/dL Low 11.8-15.4 [facility] Comment on above: Performed By: #### C BC, LACTIC, HS TROP, HEPATIC, BMP, LIPASE, BHOB, T4F, TSH3 #### [address] MCH (RBC) [Entitic mass] 28.0 pg Normal 24.7-34.3 [facility] Comment on above: Performed By: #### C BC, LACTIC, HS TROP, HEPATIC, BMP, LIPASE, BHOB, T4F, TSH3 #### [address] MCV (RBC) [Entitic vol] 87.7 fL Normal 80-100 [facility] Comment on above: Performed By: #### C BC, LACTIC, HS TROP, HEPATIC, BMP, LIPASE, BHOB, T4F, TSH3 #### [address] Mean Corpuscular HGB Conc 31.9 g/dL Low 32.0-35.0 [facility] Comment on above: Performed By: #### C BC, LACTIC, HS TROP, HEPATIC, BMP, LIPASE, BHOB, T4F, TSH3 #### [address] Platelet mean volume (Bld) [Entitic vol] 7.7 fL Normal 6.3-10.7 [facility] Comment on above: Result Comment: PERF ORMED BY: [place] [address] PATHOLOGIST DIRECTOR OF MAINTENANCE HEMANT CHÁVEZ M.D. Performed By: #### C BC, LACTIC, HS TROP, HEPATIC, BMP, LIPASE, BHOB, T4F, TSH3 #### [address] Platelets (Bld) [#/Vol] 229 10*3/uL Normal 150-450 [facility] Comment on above: Performed By: #### C BC, LACTIC, HS TROP, HEPATIC, BMP, LIPASE, BHOB, T4F, TSH3 #### [address] RBC (Bld) [#/Vol] 4.05 10*6/uL Normal 3.60-5.00 [facility] Comment on above: Performed By: #### C BC, LACTIC, HS TROP, HEPATIC, BMP, LIPASE, BHOB, T4F, TSH3 #### [address] WBC (Bld) [#/Vol] 9.4 10*3/uL Normal 3.8-11.6 [facility] Comment on above: Performed By: #### C BC, LACTIC, HS TROP, HEPATIC, BMP, LIPASE, BHOB, T4F, TSH3 #### [address] Hepatic Panelon 08-24-2021 Albumin [Mass/Vol] 3.2 g/dL Normal 3.2-5.5 [facility] Comment on above: Performed By: #### C BC, LACTIC, HS TROP, HEPATIC, BMP, LIPASE, BHOB, T4F, TSH3 #### [address] Albumin/Globulin [Mass ratio] 0.8 {ratio} Normal [facility] Comment on above: Performed By: #### C BC, LACTIC, HS TROP, HEPATIC, BMP, LIPASE, BHOB, T4F, TSH3 #### [facility] [address] ALP [Catalytic activity/Vol] 99 U/L High 32-92 [facility] Comment on above: Performed By: #### C BC, LACTIC, HS TROP, HEPATIC, BMP, LIPASE, BHOB, T4F, TSH3 #### [facility] [address] ALT [Catalytic activity/Vol] 10 U/L Normal 10-60 [facility] Comment on above: Performed By: #### C BC, LACTIC, HS TROP, HEPATIC, BMP, LIPASE, BHOB, T4F, TSH3 #### [facility] [address] AST [Catalytic activity/Vol] 13 U/L Normal 10-42 [facility] Comment on above: Performed By: #### C BC, LACTIC, HS TROP, HEPATIC, BMP, LIPASE, BHOB, T4F, TSH3 #### [address] Bilirubin [Mass/Vol] 0.5 mg/dL Normal 0.3-1.2 [facility] Comment on above: Performed By: #### C BC, LACTIC, HS TROP, HEPATIC, BMP, LIPASE, BHOB, T4F, TSH3 #### [address] Bilirubin,Indirect Not performed Normal [facility] Comment on above: Performed By: #### C BC, LACTIC, HS TROP, HEPATIC, BMP, LIPASE, BHOB, T4F, TSH3 #### [address] Bilirubin.indirect [Mass/Vol] mg/dL Normal 0.0-0.4 [facility] Comment on above: Performed By: #### C BC, LACTIC, HS TROP, HEPATIC, BMP, LIPASE, BHOB, T4F, TSH3 #### [address] Globulin (S) [Mass/Vol] 3.8 g/dL Normal [facility] Comment on above: Performed By: #### C BC, LACTIC, HS TROP, HEPATIC, BMP, LIPASE, BHOB, T4F, TSH3 #### [address] Protein [Mass/Vol] 7.0 g/dL Normal 6.1-7.9 [facility] Comment on above: Performed By: #### C BC, LACTIC, HS TROP, HEPATIC, BMP, LIPASE, BHOB, T4F, TSH3 #### [address] Hepatitis B Surface Antibody on 08-24-2021 Hepatitis B Surface Antibody Non-Reactive Normal . [facility] Comment on above: Order Comment: Which is this, the Source or the Person with the Exposure?: SOURCE Source Medical Record: [id number] Exposed Result Comment: Non Reactive: Inconsistent with immunity, less than 10 mIU/mL Reactive: Consistent with immunity, greater than 9.9 mIU/mL Performed By: #### C BC, BMP #### [address] Hepatitis B Surface Antigeno n 08-24-2021 HBsAg Screen Negative Normal Negative [facility] Comment on above: Order Comment: Which is this, the Source or the Person with the Exposure?: SOURCE Source Medical Record: [id number] Exposed Result Comment: Perf ormed at: [facility] [address] [id number] Greenhouse Manager: Spencer Mcdaniels PhD, Phone: [phone] Performed By: #### C BC, BMP #### [address] Eric 08-24-2021 L -- ---- Specimen: [id number] Received: 08/24/21 Status: JOSE Hampton Num: [id number] Spec Type: Surgical Subm Dr: Isael Castro MD Tissues: A Gallbladder (GALLBLADDER) Procedures: HE Stain, Gross/Micro L3 ---- Patient Age/Sex Location Account Attending Physician ---- Jeanmarie Garcia 71/F 4N [id number] Isael Castro MD ---- SPEC NUM: [id number] RECD: 08/24/21 STATUS: JOSE HAMPTON NUM: [id number] BASIA: 08/24/21 DR: Isael Castro MD ENTERED: 08/24/[address]: SPEC TYPE: Surgical DEPT: S ORDERED: HE Stain, [...] lesions or periductal lymph nodes are identified. Media Marketing Coordinator sections are submitted in one cassette labeled A1. (SM/JS) Microscopic Description One glass slide with H E stained material has been examined. The microscopic findings support the above pathologic diagnosis. [id number] ---- ---- Specimen: [id number] Received: 08/24/21 Status: JOSE Gaycristian Num: [id number] Spec Type: Surgical Subm Dr: Isael Castro MD Tissues: A Gallbladder (GALLBLADDER) Procedures: HE Stain, Gross/Micro L3 ---- Patient: Jeanmarie Garcia [id number] (Continued) ---- Signed (signature on file) Hemant Chávez MD 08/25/21 1822 Normal [facility] Lipaseon 08-24-2021 Lipase [Catalytic activity/Vol] 27.0 U/L Normal 22-51 [facility] Comment on above: Result Comment: PERF ORMED BY: [place] [address] PATHOLOGIST DIRECTOR OF MAINTENANCE HEMANT CHÁVEZ M.D. Performed By: #### C BC, LACTIC, HS TROP, HEPATIC, BMP, LIPASE, BHOB, T4F, TSH3 #### [facility] [address] [place] [address] Basic Metabolic Panelon 08-07 Calcium [Mass/Vol] 8.4 mg/dL Normal 8.2-10.2 [facility] Comment on above: Performed By: #### C BC, BMP #### [facility] [address] Chloride [Moles/Vol] 104 mmol/L Normal 95-114 [facility] Comment on above: Performed By: #### C BC, BMP #### [facility] [address] CO2 [Moles/Vol] 24.8 mmol/L Normal 22.0-30.0 [facility] Comment on above: Performed By: #### C BC, BMP #### [facility] [address] Creatinine [Mass/Vol] 0.96 mg/dL Normal 0.44-1.03 [facility] Comment on above: Performed By: #### C BC, BMP #### [facility] [address] [place] [address] [place] Creatinine Clr Calc Pharmacy 64.28 [facility] Comment on above: Performed By: #### C BC, BMP #### [facility] [address] [place] [address] [place] Estimated GFR ( Roseline > 60 [facility] Comment on above: Result Comment: GFR estimated reference range: According to KDOQI guidelines, <60 ml/min/1.73m2 is sufficient to diagnose a patient with chronic kidney disease. Performed By: #### C BC, BMP #### [facility] [address] Estimated GFR (Non- Am 58 [facility] Comment on above: Performed By: #### C BC, BMP #### [address] Glucose [Mass/Vol] 101 mg/dL High 70-100 [facility] Comment on above: Result Comment: [place] om Glucose Reference Range is dependent on time and content of last meal. Glucose of more than 200 mg/dL in a nonstressed, ambulatory subject supports the diagnosis of Diabetes Mellitus. ADA recommended reference range Performed By: #### C BC, BMP #### [address] Potassium [Moles/Vol] 3.5 mmol/L Normal 3.5-5.1 [facility] Comment on above: Performed By: #### C BC, BMP #### [facility] [address] [place] [id number] [place] Sodium [Moles/Vol] 137 mmol/L Normal 136-146 [facility] Comment on above: Performed By: #### C BC, BMP #### [address] Urea nitrogen [Mass/Vol] 10 mg/dL Normal 9-23 [facility] Comment on above: Performed By: #### C BC, BMP #### [address] [place] [address] [facility] COVID-19 Antigenon 2 COVID-19 Antigen Healthcare Worker?: [...] developed and its performance characteristic determined by [employer] and validated at [facility]. This test has not been FDA cleared [...] for SARS Antigen by JW PERFORMED BY: [address] [place] [address] PATHOLOGIST DIRECTOR OF MAINTENANCE HEMANT CHÁVEZ M.D. [facility] Comment on above: Performed By: #### C BC, BMP #### [facility] [address] [place], [place] [id number] [facility] COVID-19 FRMCon 08-23-2021 SARS-CoV-2 (COVID-19) RNA NAILA+probe Ql (Unsp spec) Negative Normal Negative [facility] Comment on above: Order Comment: Healt hcare Worker?: N Result Comment: Testing for SARS-CoV-2 by RT-PCR This test was developed and its performance characteristics determined by [employer] and validated at the [facility]. This test has not been FDA cleared [...] is terminated or revoked sooner. PERFORMED BY: [place] [address] PATHOLOGIST DIRECTOR OF MAINTENANCE HEMANT CHÁVEZ M.D. Performed By: #### C BC, BMP #### [address] Complete Blood Count Auto Di ffon 08-23-2021 Basophils (Bld) [#/Vol] 0.0 10*3/uL Normal 0.0-0.2 [facility] Comment on above: Result Comment: PERF ORMED BY: [place] [address] PATHOLOGIST DIRECTOR OF MAINTENANCE HEMANT CHÁVEZ M.D. Performed By: #### C BC, BMP #### [address] Basophils/100 WBC (Bld) 0.4 % Normal . [facility] Comment on above: Performed By: #### C BC, BMP #### [address] Eosinophils (Bld) [#/Vol] 0.5 10*3/uL High 0.0-0.45 [facility] Comment on above: Performed By: #### C BC, BMP #### [address] Eosinophils/100 WBC (Bld) 5.4 % Normal . [facility] Comment on above: Performed By: #### C BC, BMP #### [address] Erythrocyte distribution width (RBC) [Ratio] 15.5 % High 11.9-15.3 [facility] Comment on above: Performed By: #### C BC, BMP #### [address] Hematocrit (Bld) [Volume fraction] 37.7 % Normal 34.0-46.4 [facility] Comment on above: Performed By: #### C BC, BMP #### [address] Hemoglobin (Bld) [Mass/Vol] 12.2 g/dL Normal 11.8-15.4 [facility] Comment on above: Performed By: #### C BC, BMP #### [address] Lymphocytes (Bld) [#/Vol] 2.0 10*3/uL Normal 1.00-4.8 [facility] Comment on above: Performed By: #### C BC, BMP #### [address] Lymphocytes/100 WBC (Bld) 21.9 % Normal . [facility] Comment on above: Performed By: #### C BC, BMP #### [address] MCH (RBC) [Entitic mass] 28.1 pg Normal 24.7-34.3 [facility] Comment on above: Performed By: #### C BC, BMP #### [address] MCV (RBC) [Entitic vol] 86.9 fL Normal 80-100 [facility] Comment on above: Performed By: #### C BC, BMP #### [facility] [address] Mean Corpuscular HGB Conc 32.3 g/dL Normal 32.0-35.0 [facility] Comment on above: Performed By: #### C BC, BMP #### [facility] [address] [place] [address] [place] Monocytes (Bld) [#/Vol] 0.6 10*3/uL Normal 0.0-0.8 [facility] Comment on above: Performed By: #### C BC, BMP #### [facility] [address] Monocytes/100 WBC (Bld) 6.2 % Normal . [facility] Comment on above: Performed By: #### C BC, BMP #### [facility] [address] Neutrophils (Bld) [#/Vol] 5.9 10*3/uL Normal 1.8-7.7 [facility] Comment on above: Performed By: #### C BC, BMP #### [facility] [address] Neutrophils/100 WBC (Bld) 66.1 % Normal . [facility] Comment on above: Performed By: #### C BC, BMP #### [facility] [address] [place] [address] [place] Nucleated RBC/100 WBC (Bld) [Ratio] 0.0 % Normal 0-0.5 [facility] Comment on above: Performed By: #### C BC, BMP #### [facility] [address] [place] [address] [place] Platelet mean volume (Bld) [Entitic vol] 7.7 fL Normal 6.3-10.7 [facility] Comment on above: Performed By: #### C BC, BMP #### [facility] [address] [place] [address] [place] Platelets (Bld) [#/Vol] 261 10*3/uL Normal 150-450 [facility] Comment on above: Performed By: #### C BC, BMP #### [facility] [address] RBC (Bld) [#/Vol] 4.33 10*6/uL Normal 3.60-5.00 [facility] Comment on above: Performed By: #### C BC, BMP #### [facility] [address] WBC (Bld) [#/Vol] 8.9 10*3/uL Normal 4.5-11.0 [facility] Comment on above: Performed By: #### C BC, BMP #### [address] Dipstick and Microscopicon 0 08-23-2021 Appearance (U) Cloudy Critically abnormal Clear [facility] Comment on above: Order Comment: Name Collection Type:: Clean-Voided Midstream Performed By: #### C BC, LACTIC, HS TROP, HEPATIC, BMP, LIPASE, BHOB, T4F, TSH3 #### [address] Bacteria,Urine 2+ High None Seen [facility] Comment on above: Order Comment: Name Collection Type:: Clean-Voided Midstream Performed By: #### C BC, LACTIC, HS TROP, HEPATIC, BMP, LIPASE, BHOB, T4F, TSH3 #### [address] Bilirubin,Urine Negative Normal Negative [facility] Comment on above: Order Comment: Name Collection Type:: Clean-Voided Midstream Performed By: #### C BC, LACTIC, HS TROP, HEPATIC, BMP, LIPASE, BHOB, T4F, TSH3 #### [address] Color (U) Yellow Normal Yellow [facility] Comment on above: Order Comment: Name Collection Type:: Clean-Voided Midstream Performed By: #### C BC, LACTIC, HS TROP, HEPATIC, BMP, LIPASE, BHOB, T4F, TSH3 #### [address] Glucose Ql (U) Normal Normal Normal [facility] Comment on above: Order Comment: Name Collection Type:: Clean-Voided Midstream Performed By: #### C BC, LACTIC, HS TROP, HEPATIC, BMP, LIPASE, BHOB, T4F, TSH3 #### [address] Hyaline Casts,Urine 0-8 Normal 0-8 [facility] Comment on above: Order Comment: Name Collection Type:: Clean-Voided Midstream Result Comment: PERF ORMED BY: [place] [address] PATHOLOGIST DIRECTOR OF MAINTENANCE HEMANT CHÁVEZ M.D. Performed By: #### C BC, LACTIC, HS TROP, HEPATIC, BMP, LIPASE, BHOB, T4F, TSH3 #### [address] Ketones Ql (U) Negative Normal Negative [facility] Comment on above: Order Comment: Name Collection Type:: Clean-Voided Midstream Performed By: #### C BC, LACTIC, HS TROP, HEPATIC, BMP, LIPASE, BHOB, T4F, TSH3 #### [address] Leukocyte esterase Test strip Ql (U) 3+ High Negative [facility] Comment on above: Order Comment: Name Collection Type:: Clean-Voided Midstream Performed By: #### C BC, LACTIC, HS TROP, HEPATIC, BMP, LIPASE, BHOB, T4F, TSH3 #### [place] [address] [place] Nitrite,Urine Negative Normal Negative [facility] Comment on above: Order Comment: Name Collection Type:: Clean-Voided Midstream Performed By: #### C BC, LACTIC, HS TROP, HEPATIC, BMP, LIPASE, BHOB, T4F, TSH3 #### [address] Occult Blood,Urine Negative Normal Negative [facility] Comment on above: Order Comment: Name Collection Type:: Clean-Voided Midstream Result Comment: PERF ORMED BY: [place] [address] PATHOLOGIST DIRECTOR OF MAINTENANCE HEMANT CHÁVEZ M.D. Performed By: #### C BC, LACTIC, HS TROP, HEPATIC, BMP, LIPASE, BHOB, T4F, TSH3 #### [address] pH (U) 5.5 [pH] Normal 5.0-9.0 [facility] Comment on above: Order Comment: Name Collection Type:: Clean-Voided Midstream Performed By: #### C BC, LACTIC, HS TROP, HEPATIC, BMP, LIPASE, BHOB, T4F, TSH3 #### [address] Protein (U) [Mass/Vol] 100 mg/dL High Negative [facility] Comment on above: Order Comment: Name Collection Type:: Clean-Voided Midstream Performed By: #### C BC, LACTIC, HS TROP, HEPATIC, BMP, LIPASE, BHOB, T4F, TSH3 #### [address] RBC,Urine 1-2 Normal 0-4 [facility] Comment on above: Order Comment: Name Collection Type:: Clean-Voided Midstream Performed By: #### C BC, LACTIC, HS TROP, HEPATIC, BMP, LIPASE, BHOB, T4F, TSH3 #### [address] Specificy [place],Urine 1.021 Normal 1.001-1.030 [facility] Comment on above: Order Comment: Name Collection Type:: Clean-Voided Midstream Performed By: #### C BC, LACTIC, HS TROP, HEPATIC, BMP, LIPASE, BHOB, T4F, TSH3 #### [address] Squamous Epithelial Cell,Urine 20-30 High 0-2 [facility] Comment on above: Order Comment: Name Collection Type:: Clean-Voided Midstream Performed By: #### C BC, LACTIC, HS TROP, HEPATIC, BMP, LIPASE, BHOB, T4F, TSH3 #### [facility] [address] Urobilinogen,Urine Normal Normal Normal [facility] Comment on above: Order Comment: Name Collection Type:: Clean-Voided Midstream Performed By: #### C BC, LACTIC, HS TROP, HEPATIC, BMP, LIPASE, BHOB, T4F, TSH3 #### [facility] [address] WBC,Urine 50-100 High 0-4 [facility] Comment on above: Order Comment: Name Collection Type:: Clean-Voided Midstream Performed By: #### C BC, LACTIC, HS TROP, HEPATIC, BMP, LIPASE, BHOB, T4F, TSH3 #### [facility] [address] ECG 12 lead ECGon 08-23-2021 ECG [address] [facility] [place] [address] [place] [address] Electrocardiograph Report Signed Patient: Jeanmarie Garcia MR#: [id number] [id number] : 1950 Acct:[id number] Age/Sex: 71 / F ADM Date: 08/23/21 Loc: [place] Room: Type: [facility] Attending Dr: Isael Castro MD Ordering [...] MUS Signed By Soy Marinelli DO [address] [facility] Glucose Poct Glucometerson 0 08-23-2021 Commemt1 Glu2: Cleaned [facility] Comment on above: Result Comment: PERF ORMED BY: [place] [address] PATHOLOGIST DIRECTOR OF MAINTENANCE HEMANT CHÁVEZ M.D. Performed By: #### C BC, LACTIC, HS TROP, HEPATIC, BMP, LIPASE, BHOB, T4F, TSH3 #### [address] Glucose [Mass/Vol] 197 mg/dL Normal [facility] Comment on above: Result Comment: [place] om Glucose Reference Range is dependent on time and content of last meal. Glucose of more than 200 mg/dL in a nonstressed, ambulatory subject supports the diagnosis of Diabetes Mellitus. Performed By: #### C BC, LACTIC, HS TROP, HEPATIC, BMP, LIPASE, BHOB, T4F, TSH3 #### [address] Commemt1 Glu2: Cleaned [facility] Comment on above: Result Comment: PERF ORMED BY: [place] [address] PATHOLOGIST DIRECTOR OF MAINTENANCE HEMANT CHÁVEZ M.D. Performed By: #### C BC, LACTIC, HS TROP, HEPATIC, BMP, LIPASE, BHOB, T4F, TSH3 #### [address] Glucose [Mass/Vol] 145 mg/dL Normal [facility] Comment on above: Result Comment: [place] om Glucose Reference Range is dependent on time and content of last meal. Glucose of more than 200 mg/dL in a nonstressed, ambulatory subject supports the diagnosis of Diabetes Mellitus. Performed By: #### C BC, LACTIC, HS TROP, HEPATIC, BMP, LIPASE, BHOB, T4F, TSH3 #### [address] Hepatic Panelon 08-23-2021 Albumin [Mass/Vol] 3.1 g/dL Low 3.2-5.5 [facility] Comment on above: Performed By: #### C BC, BMP #### [facility] [address] [place] [address] Albumin/Globulin [Mass ratio] 0.8 {ratio} Normal [facility] Comment on above: Performed By: #### C BC, BMP #### [facility] [address] ALP [Catalytic activity/Vol] 91 U/L Normal 32-92 [facility] Comment on above: Performed By: #### C BC, BMP #### [address] ALT [Catalytic activity/Vol] 12 U/L Normal 10-60 [facility] Comment on above: Performed By: #### C BC, BMP #### [address] AST [Catalytic activity/Vol] 16 U/L Normal 10-42 [facility] Comment on above: Performed By: #### C BC, BMP #### [address] Bilirubin [Mass/Vol] 0.5 mg/dL Normal 0.3-1.2 [facility] Comment on above: Performed By: #### C BC, BMP #### [address] Bilirubin,Indirect Not performed Normal [facility] Comment on above: Performed By: #### C BC, BMP #### [facility] [address] [place] [address] Bilirubin.indirect [Mass/Vol] mg/dL Normal 0.0-0.4 [facility] Comment on above: Performed By: #### C BC, BMP #### [facility] [address] [place] [address] Globulin (S) [Mass/Vol] 3.8 g/dL Normal [facility] Comment on above: Performed By: #### C BC, BMP #### [address] Protein [Mass/Vol] 6.9 g/dL Normal 6.1-7.9 [facility] Comment on above: Performed By: #### C BC, BMP #### [address] Lipaseon 08-23-2021 Lipase [Catalytic activity/Vol] 31.0 U/L Normal 22-51 [facility] Comment on above: Result Comment: PERF ORMED BY: [place] [address] PATHOLOGIST DIRECTOR OF MAINTENANCE HEMANT CHÁVEZ M.D. Performed By: #### C BC, BMP #### [address] Holley Ag Negativeon 08-24-19 Holley Ag Negative Negative Normal Negative [facility] Comment on above: Result Comment: This is a duplicate Holley SARS Antigen (JW) result to be used for statistical tracking purpose only. PERFORMED BY: [place] [address] PATHOLOGIST DIRECTOR OF MAINTENANCE HEMANT CHÁVEZ M.D. Performed By: #### C BC, BMP #### [address] US gall bladderon 08-23-[address] [facility] [place] [address] Ultrasound Report Signed Patient: Jeanmarie Garcia MR#: [id number] 757 : 1950 Acct:[id number] Age/Sex: 71 / F ADM Date: 08/23/21 Loc: ER Room: Type: [facility] ER Attending Dr: Ordering Provider: [...] Glasgow Jr., D.OMichaelle08/23/2021 9:59 AM Dictation Location: [place] [address] Tech: Lolis Owen Transcribed By: [facility] 08/23/21958 Dictated By: Gerald Glasgow Jr, DO 08/23/2154 Signed By: 08/23/21958 [facility] Urine Cultureon 08-23-2021 Bacteria identified Cx Nom (U) >100,000 colonies/ml mixed bacterial skin contaminants 2 Days PERFORMED BY: [place] [address] PATHOLOGIST DIRECTOR OF MAINTENANCE HEMANT CHÁVEZ M.D. [facility] Comment on above: Performed By: #### C BC, LACTIC, HS TROP, HEPATIC, BMP, LIPASE, BHOB, T4F, TSH3 #### [address] Coding Summaryon 05-28-2019 Coding Summary CODING DATE: 05/28/2019 [facility] STATUS: Home PAYOR: Medicare ADMIT DX: REASON [...] Mony Vines Date Saved: 05/28/2019 03:02 pm [facility] MAGR Intraoperative Recordon 05-15-2019 MAGR Intraoperative Record MAGR Intra-Op Record Summary Primary Physician: Magdi Mclaughlin MD Finalized Date/Time: 05/15/19 13:43:13 Pt. Name: JEANMARIE GARCIA Lianet/Sex: 1950 FEMALE Med Rec #: [id number] Physician: Magdi Mclaughlin MD Financial #: [id number] Pt. Type: D Room/Bed: / Admit/Disch: 05/13/19 05:53:00 - 05/13/19 12:10:00 Institution: Case Times MAGR Entry 1 Patient In Room Time 05/13/19 07:42:00 Out Room Time 05/13/19 09:07:00 Anesthesia Start Time 05/13/19 07:42:00 Stop Time 05/13/19 09:10:00 Surgery Start Time 05/13/19 08:03:00 Stop Time 05/13/19 09:01:00 Last Modified By: Anuja Farais RN 05/13/19 09:08:17 Case Attendance MAGR Entry 1 Entry 2 Entry 3 Case Attendee Magdi Mclaughlin MD, Anuja Duke MD, RN Role Performed Surgeon - Primary Anesthesiologist of Head Bander And Liner Operator Record Time In 05/13/19 07:42:00 05/13/19 07:42:00 05/13/19 07:42:00 Time Out 05/13/19 09:07:00 05/13/19 09:07:00 05/13/19 09:07:00 Procedure Hernia Repair Ventral Hernia Repair Ventral Hernia Repair Ventral Last Modified By: Anuja Farias RN, Barbara RN Long, Barbara RN 05/13/19 09:08:03 05/13/19 09:08:03 05/13/19 09:08:03 Entry 4 Entry 5 Case Attendee Irving LOOMIS, Dana Dai CST Role Performed Scrub Personnel Meat Molder Time In 05/13/19 07:42:00 05/13/19 07:42:00 Time [...] Final Counts Anuja Farias RN, Performed By Shaniqua Villatoro CST Final Count Time 05/13/19 08:46:00 Surgeon notified [...] Outcome Met (O.130) Yes Last Modified By: Aunja Farias RN 05/13/19 08:59:18 Post-Care Text: E.20 [...] Date/Time By: Size 3 CM / 3.2 Biophysics Teacher BARD Lot Number [id number] Expiration Date 07/04/20 Implant Usage Data Site Abdomen Quantity 1 Talent Acquisition Consultant Sterility Outcome Met (O.30) Yes Last Modified [...] Description Condition Intact Description Report Given To Rosendo BELLE, Yolanda George Airway Maintenance Patient Status Stable Oxygen in [...] Summaryon 05-14-2019 Coding Summary CODING DATE: 05/14/2019 [facility] STATUS: Home PAYOR: Medicare MC APC DESCRIPTION 5341 Abdominal/Peritoneal/B iliary and Related Procedures ADMIT DX: REASON FOR VISIT DX: K43.9 Ventral hernia without obstruction or gangrene FINAL DX: PRINCIPAL: K43.9 Ventral hernia without obstruction or gangrene SECONDARY: E11.9 Type 2 diabetes mellitus without complications Z79.4 custodial (current) use of insulin PYMT PROC APC STAT DESCRIPTION DOCTOR NAME DATE [id number] 8932 J1 Repair initial aMgdi Mclaughlin MD 05/13/2019 incisional or ventral hernia; reducible 44685 Implantation of mesh or Magdi Mclaughlin MD [...] Sarai Lynn Date Saved: 05/14/2019 02:01 pm [facility] Consent Formson 05-14-2019 Consent Forms [id number] 20 [id number]#1.[address] [place] [address] Medication Managementon Medication Management [id number]#1.[address] [place] [address] Outside Recordson 05-14-2019 Outside Records [id number] 20 [id number]#1.[address] [place] [address] Provider Orderson 05-14-2019 Provider Orders [id number] 20 [id number]#1.[address] [place] [address] Telemetry Stripson 0 Telemetry Strips [id number] 20 [id number]#1.[address] [place] [address] Anesthesia Noteon 05-13-2019 Anesthesia Note Patient: JEANMARIE [...] on: 05/13/2019 09:57 EST] Kevin Khoury MD [facility] Anesthesia Note Patient: JEANMARIE GARCIA Age: [...] (chronic obstructive pulmonary disease) / SNOMED CT 90847707 / Confirmed Development delay / SNOMED CT 271355037 / Confirmed Diabetes / SNOMED CT 671350281 / Confirmed GERD (gastroesophageal reflux disease) / SNOMED CT 714911534 / Confirmed Hyponatremia / SNOMED CT 796327810 / Confirmed Hypothyroidism / SNOMED CT 97059196 / Confirmed Schizophrenia / SNOMED CT 84695874 / Confirmed Speech problem / SNOMED CT 328006065 / Confirmed Resolved: Depression / SNOMED CT 12799750 Histories Family History: History is unknown. Procedure history: Stomach (310868660). Comments: 11/19/2018 12:55 Marshal Hoyos RN pt [...] Oriented. Review / Management Laboratory Results Plan [place] [employer]esthesiologists#(ASA ) physical status classification: [...] on: 05/13/2019 08:13 EST] Kevin Khoury MD [facility] History and Physicalon 05-13 History and Physical [id number] .[id number] [facility] Inpatient Patient Summaryon 05-13-2019 [place] [address] Patient Discharge Instructions Name: JEANMARIE GARCIA : 1950 Patient Address: [address] [place] [address] Primary Care Provider: Name: GERALD FUENTES After you are discharged if you find you have any questions, please, call [phone] ext [phone] to speak to a nurse. Discharge Diagnosis: Ventral incisional hernia Prescription Information: If you have been given a prescription for narcotics, seek immediate medical attention if you have any difficulty breathing or any sudden status changes such as confusion and sleepiness. If you or anyone you know is experiencing suicidal thoughts, mental health, alcohol and/or drug addiction problems; contact the [facility] 30/10 Crisis Hotline -Text 4HOPE to 564306. If you received any narcotics, sedation, or [...] Follow-up Instructions With: Address: When: Magdi Mclaughlin [address] [place] [address], [place] [address] Business (1) In 2 weeks 05/27/2019 With: Address: When: GERALD FUENTES [address] [place] [address] Business (1) Medications During the course of your visit, your medication list was updated with the most current information. The details of those changes are reflected below: New Medications Printed Prescriptions acetaminophen-hydrocod one (Hatteras 5 mg-325 mg oral tablet) 1 tab(s) [...] needed as needed for pain. acetaminophen-hydrocod one (Hatteras 5 mg-325 mg oral tablet) 1 tab(s) [...] the next day or two. ? Take kjza-axk-wmfrxjg and prescription medicines only as told by [...] 03/12/2013 Document Revised: 05/08/2018 Document Reviewed: 10/15/2017 [employer] Interactive Patient Education ? 2019 [employer] Viruses or Bacteria What?s got you sick? [...] for Disease Control and Prevention December 2013 [facility] PACU Recordon 0 MAGR PACU Record MAGR PACU Record Summary Primary Physician: Magdi Mclaughlin MD Finalized Date/Time: 05/13/19 10:21:28 Pt. Name: JEANMARIE GARCIA/Sex: 1950 FEMALE Med Rec #: [id number] Physician: Magdi Mclaughlin MD Financial #: [id number] Pt. Type: D Room/Bed: / Admit/Disch: 05/13/19 05:53:00 - Institution: PACU Case Times MAGR Entry 1 In PACU I 05/13/19 09:10:00 Discharge from PACU 05/13/19 09:49:00 I Last Modified By: Yolanda Robbins RN 05/13/19 10:21:25 Finalized By: Yolanda Robbins RN Document Signatures Signed By: Yolanda Robbins RN 05/13/19 10:21 [facility] MAGR Postoperative Recordon 05-13-2019 MAGR Postoperative Record MAGR Phase II Record Summary Primary Physician: Magdi Mclaughlin MD Finalized Date/Time: 05/13/19 12:19:23 Pt. Name: JEANMARIE GARCIA/Sex: 1950 FEMALE Med Rec #: [id number] Physician: Magdi Mclaughlin MD Financial #: [id number] Pt. Type: D Room/Bed: / Admit/Disch: 05/13/19 [...] Signed By: Denae Najera RN 05/13/19 12:19 [facility] MAGR Preoperative Recordon 0 05-13-2019 MAGR Preoperative Record MAGR Pre-Op Record Summary Primary Physician: Magdi Mclaughlin MD Finalized Date/Time: 05/13/19 08:06:19 Pt. Name: JEANMARIE GARCIA /Sex: 1950 FEMALE Med Rec #: [id number] Physician: Magdi Mclaughlin MD Financial #: [id number] Pt. Type: D Room/Bed: / Admit/Disch: 05/13/19 [...] Signed By: Anuja Farias RN 05/13/19 08:06 [facility] Operative Report - Surgeon/P rico 05-13-2019 [...] The fascia was closed transversely using interrupted geuuqi-dv-jtzhn 0 Vicryl sutures. The sutures included the [...] discharged today. Magdi Mclaughlin M.D. JOB #: [id number] bk CC: Gerald Fuentes D.O. [Electronically Signed on: 05/13/2019 11:19 EST] Magdi Mclaughlin MD [Verified on: 05/13/2019 11:19 EST] Magdi Mclaughlin MD [Transcribed on: 05/13/2019 10:09 EST] [facility] Patient Handouton 05-13-2019 Patient Handout Gastroenterology Ventral [...] the next day or two. ? Take racm-apt-dnzwtdk and prescription medicines only as told by [...] 03/12/2013 Document Revised: 05/08/2018 Document Reviewed: 10/15/2017 Elsevier Interactive Patient Education ? 2018 [employer] [facility] Progress Note - Nurseon Progress Note - Nurse Pre-op call done, talked with caregiver @ [facility]. Instructed to have pt. here @ 05-13-2019, NPO after midnight-verbalized understanding. [Electronically Signed on: 05/12/2019 09:47 EST] Denae Najera RN [Verified on: 05/12/2019 09:47 EST] Denae Najera RN [facility] Coding Summaryon 05-08-2019 Coding Summary CODING DATE: 05/08/2019 [facility] STATUS: Home PAYOR: Medicare ADMIT DX: REASON [...] Deanna Whitman Date Saved: 05/08/2019 09:15 am [facility] Progress Note - Nurseon 04-11 Progress Note - Nurse Chart reviewed by Dr. Palacios and no new orders received. [Electronically Signed on: 05/08/2019 15:51 EST] Yolanda Soto RN [Verified on: 05/08/2019 15:51 EST] Charles BELLE, Yolanda A Normal [facility] .Auto Diff 1on 05-07-[address] [place] % 5 % Normal 1-12 [facility] Comment on above: Performed By: #### 1 [id number], 4351008, 08472508 #### [facility] (DEFAULT) [address] [place] [address] 67684 Baso Abs# 0.0 x10 Normal 0.0-0.2 [facility] Comment on above: Performed By: #### 1 [id number], 2556833, 60861166 #### [facility] (DEFAULT) [address] [place] [address] Basophils/100 WBC (Bld) 0.1 % Low 0.2-2.0 [facility] Comment on above: Performed By: #### 1 [id number], 8517426, 54634712 #### [facility] (DEFAULT) [address] [place] [address] Eos Abs# 1.2 x10 High 0.0-0.4 [facility] Comment on above: Performed By: #### 1 523982125, 1148157, 65828745 #### [facility] (DEFAULT) [address] [place] [address] 47294 Eosinophils/100 WBC (Bld) 11.4 % High 0.9-4.0 [facility] Comment on above: Performed By: #### 1 [id number], 5717325, 96706472 #### [facility] (DEFAULT) [address] [place] [address] 18943 Lymphocytes (Bld) [#/Vol] 3.3 x10 High 1.3-2.9 [facility] Comment on above: Performed By: #### 1 608721282, 7380558, 05865124 #### [facility] (DEFAULT) [address] [place] [address] 97980 Lymphocytes/100 WBC (Bld) 31 % Normal 14-48 [facility] Comment on above: Performed By: #### 1 472928659, 6403581, 62219444 #### [facility] (DEFAULT) [address] [place] [address] [place] Abs# 0.6 x10 Normal 0.0-0.8 [facility] Comment on above: Performed By: #### 1 [id number], 0344503, 50628132 #### [facility] (DEFAULT) [address] [place] [address] 65260 Neut Abs# 5.7 x10 Normal 1.5-9.2 [facility] Comment on above: Performed By: #### 1 135446460, 6041992, 35049969 #### [facility] (DEFAULT) [address] [place] [address] Neutrophils/100 WBC (Bld) 53 % Normal 44-88 [facility] Comment on above: Performed By: #### 1 140269201, 6001776, 07138357 #### [facility] (DEFAULT) [address] [place] [address] Standardon 05-07-2019 eGFR Non AA >60 [facility] Comment on above: Performed By: #### 1 [id number], 8542706, 48073680 #### [facility] (DEFAULT) [address] [place] [address] eGFR AA >60 [facility] Comment on above: Result Comment: Egg Separator anna Kidney disease could be indicated at eGFRs of less than 60 ml/min/1.73m2. Kidney Failure is indicated at less than 15 ml/min/1.73m2 Performed By: #### 1 [id number], 6148697, 85809802 #### [facility] (DEFAULT) [address] [place] [address] 33594 Anion gap [Moles/Vol] 13.0 mmol/L Normal 5.0-19.0 [facility] Comment on above: Performed By: #### 1 [id number], 7971518, 81354365 #### [facility] (DEFAULT) [address] [place] [address] 71379 Calcium [Mass/Vol] 9.3 mg/dL Normal 8.9-10.3 [facility] Comment on above: Performed By: #### 1 [id number], 5978028, 16663715 #### [facility] (DEFAULT) [address] [place] [address] 51583 Chloride [Moles/Vol] 100 mmol/L Low 101-111 [facility] Comment on above: Performed By: #### 1 [id number], 9333473, 83755711 #### [facility] (DEFAULT) [address] [place] [address] 33032 CO2 [Moles/Vol] 29 mmol/L Normal 21-32 [facility] Comment on above: Performed By: #### 1 [id number], 1152343, 34362220 #### [facility] (DEFAULT) [address] [place] [address] 13980 Creatinine [Mass/Vol] 0.83 mg/dL Normal 0.60-1.30 [facility] Comment on above: Performed By: #### 1 [id number], 5087286, 84873947 #### [facility] (DEFAULT) [address] [place] [address] 25014 Glucose [Mass/Vol] 119.0 mg/dL High 74.0-118.0 [facility] Comment on above: Performed By: #### 1 743505436, 5933786, 01291403 #### [facility] (DEFAULT) [address] [place] [address] 91777 Osmolality [Osmolality] 280 mOsm/L [facility] Comment on above: Performed By: #### 1 [id number], 5573260, 99264590 #### [facility] (DEFAULT) [address] [place] [address] 84369 Potassium [Moles/Vol] 4.2 mmol/L Normal 3.6-5.1 [facility] Comment on above: Performed By: #### 1 622675667, 6361492, 16515085 #### [facility] (DEFAULT) [address] [place] [address] 67411 Sodium [Moles/Vol] 138.0 mmol/L Normal 136.0-144.0 [facility] Comment on above: Performed By: #### 1 [id number], 7384176, 45824593 #### [facility] (DEFAULT) [address] [place] [address] 22956 Urea nitrogen [Mass/Vol] 21 mg/dL Normal 8-26 [facility] Comment on above: Performed By: #### 1 576940156, 2970027, 14822015 #### [facility] (DEFAULT) [address] [place] [address] 41805 Urea nitrogen/Creatinine [Mass ratio] 25.0 mg/mg High 4.6-16.2 [facility] Comment on above: Performed By: #### 1 [id number], 2558921, 06569879 #### [facility] (DEFAULT) [address] [place] [address] 66101 CBC w/ Auto Diffon 0 Erythrocyte distribution width (RBC) [Ratio] 14.5 % Normal 11.5-15.0 [facility] Comment on above: Performed By: #### 7 202371, 64413472, 1841250234 #### [facility] (DEFAULT) [address] [place] [address] 90642 Hematocrit (Bld) [Volume fraction] 40.5 % High 33.7-40.4 [facility] Comment on above: Performed By: #### 7 242620, 97753031, 4998843555 #### [facility] (DEFAULT) [address] [place] [address] 22309 Hemoglobin (Bld) [Mass/Vol] 12.7 g/dL Normal 11.3-15.9 [facility] Comment on above: Performed By: #### 7 387947, 83908914, [id number] #### [facility] (DEFAULT) [address] [place] [address] 67448 Man Diff? Auto Normal [facility] Comment on above: Performed By: #### 7 253663, 26258671, [id number] #### [facility] (DEFAULT) [address] [place] [address] 90790 MCH (RBC) [Entitic mass] 28 pg Normal 24-34 [facility] Comment on above: Performed By: #### 7 498682, 27829636, [id number] #### [facility] (DEFAULT) [address] [place] [address] MCHC (RBC) [Mass/Vol] 31 g/dL Normal 26-37 [facility] Comment on above: Performed By: #### 7 173963, 70954707, 1543912445 #### [facility] (DEFAULT) [address] [place] [address] MCV (RBC) [Entitic vol] 91 fL Normal 81-100 [facility] Comment on above: Performed By: #### 7 926440, 37096101, 4981989470 #### [facility] (DEFAULT) [address] [place] [address] Platelet mean volume (Bld) [Entitic vol] 9.4 fL Normal 6.3-10.2 [facility] Comment on above: Performed By: #### 7 435327, 53606354, 5831784622 #### [facility] (DEFAULT) [address] [place] [address] Platelets (Bld) [#/Vol] 275 x10 Normal 138-427 [facility] Comment on above: Performed By: #### 7 351374, 68153146, 0160622941 #### [facility] (DEFAULT) [address] [place] [address] RBC (Bld) [#/Vol] 4.45 x10 Normal 3.70-5.30 [facility] Comment on above: Performed By: #### 7 986004, 49826142, 2832652725 #### [facility] (DEFAULT) [address] [place] [address] WBC (Bld) [#/Vol] 10.9 x10 High 3.5-10.5 [facility] Comment on above: Performed By: #### 7 676546, 45789971, 3987868908 #### [facility] (DEFAULT) [address] [place] [address] Patient Letteron 03-12-2019 Patient Letter [id number] 30 [id number]#1.[address] [place] [address] Patient Letter [id number]#1.[address] [place] [address] CARDIAC STRESS/REST JOSE Moreno 12-31-2018 [facility] CARDIAC STRESS/REST INJECTION Patient Name: JEANMARIE GARCIA STUDY: MYOCARDIAL PERFUSION STRESS TEST WITH LEXISCAN Performing facility: [facility], [address] [place] [address], [address], [address] Provider: Sharon Jones MD, [facility] PCP: Dr. Milton FUENTES SURGEON: DR. Debbi GARCIA Supervising provider: Rui Ford DO, [facility] INDICATION: DM NICM Pre-operative risk assessment for ventral Hernia scheduled at [facility], DATE PENDING HISTORY: Gender: F; Age: 68 y/o ; Height: 162.56 cm; Weight: 96.4692810 kg. High Cholesterol; Diabetes; HTN; COPD; NICM Currently smoking. COMPARISON: No comparison. ACCESSION NUMBER(S): [id number]; [id number]; [id number] ORDERING CLINICIAN: KEVIN JONES TECHNIQUE: ONE DAY [...] comparison. Electronically signed by: BERTHA GONZALEZ MD [facility] Coding Summaryon 12-30-2018 Coding Summary CODING DATE: 12/30/2018 [facility] STATUS: Home PAYOR: Medicare ADMIT DX: REASON [...] Mony Vines Date Saved: 12/30/2018 03:13 pm [facility] Outside Recordson 12-25-2018 Outside Records [id number] 03 [id number]. [id number] [facility] Progress Note - Nurseon 11-07 Progress Note - Nurse Chart reviewed by Dr. Palacios no new orders received. [Electronically Signed on: 11/21/2018 14:21 EDT] Yolanda Soto RN [Verified on: 11/21/2018 14:21 EDT] Yolanda Soto RN [facility] Coding Summaryon 11-20-2018 Coding Summary CODING DATE: 11/20/2018 [facility] STATUS: Home PAYOR: Medicare APC DESCRIPTION [id number] [...] Justin Date Saved: 11/20/2018 11:29 am Normal [facility] .Auto Diff 111-19-[address] % 5 % Normal -12 [facility] Comment on above: Performed By: #### 1 [id number], 0232908, 83856750 #### [facility] (DEFAULT) [address] [place] [address] Baso Abs# 0.0 x10 Normal 0.0-0.2 [facility] Comment on above: Performed By: #### 1 459367264, 6715902, 48796424 #### [facility] (DEFAULT) [address] [place] [address] 25934 Basophils/100 WBC (Bld) 0.1 % Low 0.2-2.0 [facility] Comment on above: Performed By: #### 1 491069819, 2943132, 19107784 #### [facility] (DEFAULT) [address] [place] [address] 24025 Eos Abs# 1.3 x10 High 0.0-0.4 [facility] Comment on above: Performed By: #### 1 035245012, 9684282, 93192194 #### [facility] (DEFAULT) [address] [place] [address] 55610 Eosinophils/100 WBC (Bld) 11.7 % High 0.9-4.0 [facility] Comment on above: Performed By: #### 1 406332040, 3891074, 69853347 #### [facility] (DEFAULT) [address] [place] [address] 74091 Lymphocytes (Bld) [#/Vol] 2.9 x10 Normal 1.3-2.9 [facility] Comment on above: Performed By: #### 1 231955532, 3665155, 14642886 #### [facility] (DEFAULT) [address] [place] [address] 76515 Lymphocytes/100 WBC (Bld) 26 % Normal 14-48 [facility] Comment on above: Performed By: #### 1 500356783, 9900528, 76046601 #### [facility] (DEFAULT) [address] [place] [address] [place] Abs# 0.5 x10 Normal 0.0-0.8 [facility] Comment on above: Performed By: #### 1 585297660, 2522398, 17335119 #### [facility] (DEFAULT) [address] [place] [address] Neut Abs# 6.4 x10 Normal 1.5-9.2 [facility] Comment on above: Performed By: #### 1 188098156, 9597254, 37060575 #### [facility] (DEFAULT) [address] [place] [address] 68828 Neutrophils/100 WBC (Bld) 58 % Normal 44-88 [facility] Comment on above: Performed By: #### 1 926380640, 1383281, 39699302 #### [facility] (DEFAULT) [address] [place] [address] Standardon 11-19-2018 eGFR Non AA 60 mL/min/1.73m2 [facility] Comment on above: Performed By: #### 1 175214871, 0550101, 03197837 #### [facility] (DEFAULT) [address] [place] [address] eGFR AA >60 [facility] Comment on above: Result Comment: Egg Separator anna Kidney disease could be indicated at eGFRs of less than 60 ml/min/1.73m2. Kidney Failure is indicated at less than 15 ml/min/1.73m2 Performed By: #### 1 982969463, 5417123, 29088153 #### [facility] (DEFAULT) [address] [place] [address] Anion gap [Moles/Vol] 15.0 mmol/L Normal 5.0-19.0 [facility] Comment on above: Performed By: #### 1 820430201, 4104117, 62982909 #### [facility] (DEFAULT) [address] [place] [address] 18219 Calcium [Mass/Vol] 9.5 mg/dL Normal 8.9-10.3 [facility] Comment on above: Performed By: #### 1 421568981, 6999993, 00641582 #### [facility] (DEFAULT) [address] [place] [address] 66926 Chloride [Moles/Vol] 101 mmol/L Normal 101-111 [facility] Comment on above: Performed By: #### 1 647679011, 9841788, 41388409 #### [facility] (DEFAULT) [address] [place] [address] 56474 CO2 [Moles/Vol] 26 mmol/L Normal 21-32 [facility] Comment on above: Performed By: #### 1 256511947, 5897219, 55793601 #### [facility] (DEFAULT) [address] [place] [address] 28479 Creatinine [Mass/Vol] 0.93 mg/dL Normal 0.60-1.30 [facility] Comment on above: Performed By: #### 1 899327725, 2953665, 26897971 #### [facility] (DEFAULT) [address] [place] [address] 53072 Glucose [Mass/Vol] 128.0 mg/dL High 74.0-118.0 [facility] Comment on above: Performed By: #### 1 994189993, 8367226, 44677081 #### [facility] (DEFAULT) [address] [place] [address] 13806 Osmolality [Osmolality] 281 mOsm/L [facility] Comment on above: Performed By: #### 1 602442718, 6215034, 32691068 #### [facility] (DEFAULT) [address] [place] [address] 60726 Potassium [Moles/Vol] 4.2 mmol/L Normal 3.6-5.1 [facility] Comment on above: Performed By: #### 1 332900229, 2994816, 27492976 #### [facility] (DEFAULT) [address] [place] [address] 10734 Sodium [Moles/Vol] 138.0 mmol/L Normal 136.0-144.0 [facility] Comment on above: Performed By: #### 1 330028999, 7597895, 94287801 #### [facility] (DEFAULT) [address] [place] [address] Urea nitrogen [Mass/Vol] 22 mg/dL Normal 8-26 [facility] Comment on above: Performed By: #### 1 231229493, 4257385, 92021706 #### [facility] (DEFAULT) [address] [place] [address] Urea nitrogen/Creatinine [Mass ratio] 24.0 mg/mg High 4.6-16.2 [facility] Comment on above: Performed By: #### 1 839909172, 9669041, 92800041 #### [facility] (DEFAULT) [address] [place] [address] CBC w/ Auto Diffon Erythrocyte distribution width (RBC) [Ratio] 14.9 % Normal 11.5-15.0 [facility] Comment on above: Performed By: #### 1 891840302, 3037519, 22262359 #### [facility] (DEFAULT) [address] [place] [address] Hematocrit (Bld) [Volume fraction] 39.4 % Normal 33.7-40.4 [facility] Comment on above: Performed By: #### 1 463624545, 9044556, 12462144 #### [facility] (DEFAULT) [address] [place] [address] Hemoglobin (Bld) [Mass/Vol] 12.4 g/dL Normal 11.3-15.9 [facility] Comment on above: Performed By: #### 1 796186207, 2008532, 46297745 #### [facility] (DEFAULT) [address] [place] [address] Man Diff? Auto Normal [facility] Comment on above: Performed By: #### 1 209362519, 2338899, 25590146 #### [facility] (DEFAULT) [address] [place] [address] 76835 MCH (RBC) [Entitic mass] 29 pg Normal 24-34 [facility] Comment on above: Performed By: #### 1 955335546, 0742429, 51703076 #### [facility] (DEFAULT) [address] [place] [address] 52395 MCHC (RBC) [Mass/Vol] 32 g/dL Normal 26-37 [facility] Comment on above: Performed By: #### 1 299995404, 3010414, 17846264 #### [facility] (DEFAULT) [address] [place] [address] 95332 MCV (RBC) [Entitic vol] 91 fL Normal 81-100 [facility] Comment on above: Performed By: #### 1 467874772, 4496080, 59783218 #### [facility] (DEFAULT) [address] [place] [address] 72279 Platelet mean volume (Bld) [Entitic vol] 9.3 fL Normal 6.3-10.2 [facility] Comment on above: Performed By: #### 1 299824665, 6257858, 69216271 #### [facility] (DEFAULT) [address] [place] [address] 04726 Platelets (Bld) [#/Vol] 278 x10 Normal 138-427 [facility] Comment on above: Performed By: #### 1 913393911, 7152154, 56820362 #### [facility] (DEFAULT) [address] [place] [address] 57879 RBC (Bld) [#/Vol] 4.34 x10 Normal 3.70-5.30 [facility] Comment on above: Performed By: #### 1 896923170, 4681702, 30800138 #### [facility] (DEFAULT) [address] [place] [address] 39557 WBC (Bld) [#/Vol] 11.2 x10 High 3.5-10.5 [facility] Comment on above: Performed By: #### 1 [id number], [id number] #### [facility] (DEFAULT) [address] [place] [address] PROGRESSon 07-19-2017 PROGRESS HNO ID: [id number]: Celina Dorantes) GrantService: (none)Author Type: Physician AssistantType: Progress NotesFiled: 07/20/2017 10:27 AMNote Text: [facility] NOTENAME: ELMA GARCIA NO.: [id number] OF SERVICE: 07/19/2017[place] ManorDATE OF : [birth year] 133CHIEF COMPLAINT: Foot discomfort.SUBJECTIVE [...] SYSTEMS: Please see above.MEDICATIONS: Reviewed in the long-term record.CODE STATUS: Full code.PHYSICAL EXAMINATION: Revealed middle-aged [...] supportive care.DICTATED BY: AIDEE López/AcusisD: 018 JOB# [id number]:Irina Felizronically Signed by Celina Judd PA-C at 07/20/2017 10:16:25 Normal [facility] PROGRESSon 06-07-2017 PROGRESS HNO ID: [id number]: Fatmata Sharmaervice: (none)Author Type: PhysicianType: Progress NotesFiled: 06/08/2017 4:57 PMNote Text: [facility] NOTENAME: PATRICIO GARCIA NO.: [id number] OF SERVICE: 06/07/2017Edike RaymundoorDATE OF : 1950Shluciano is sitting up in bed. She is [...] therapy. Also, maintain hercurrent diabetic regimen.DICTATED BY: BUTCH Platt/AcusisD:06/08/19 18 JOB# [id number]:Irina Felizronically Signed by Fatmata Casey MD at 06/08/2017 16:46:12 Normal [facility] PROGRESSon 05-17-2017 PROGRESS HNO ID: [id number]: Celina Dorantes) GrantService: (none)Author Type: Physician AssistantType: Progress NotesFiled: 05/18/2017 10:17 AMNote Text: [facility] NOTENAME: PATRICIO GARCIA NO.: [id number] OF SERVICE: 05/17/2017S[place] TommyATE OF : August 13HIEF COMPLAINT: Followup diabetes.SUBJECTIVE FINDINGS: The patient was seen in her room at [facility] followup visit. [facility] She had been admitted here approximately 1 month ago. Shecontinued to smoke on occasion, although she stated she was trying toquit. Nurses reported her to be eating and drinking well. There was noevidence of seizure activity. She reported that her appetite was goodand bowels regular.REVIEW OF SYSTEMS: Please see above.FAMILY/SOCIAL HISTORY: Unchanged.MEDICATIONS: Reviewed in the long-term record. Code status is fullcode.PHYSICAL EXAMINATION: Temperature [...] well controlled [facility] she [facility].2. Seizure disorder. No recent seizure activity. [...] the facility.DICTATED BY: AIDEE López/AcusisD: 018 JOB# [id number]:[facility] Signed by Celina Judd PA-C at 05/18/2017 10:09:27 Normal [facility] PROGRESSon 05-08-2017 PROGRESS HNO ID: [id number]: Fatmata Joy: (none)Author Type: PhysicianType: Progress NotesFiled: 05/09/2017 3:47 PMNote Text: [facility] NOTENAME: PATRICIO GARCIA NO.: [id number] OF SERVICE: 05/08/2017[place] ManorDATE OF : 1950New Patient History and PhysicalHISTORY OF PRESENT ILLNESS: The patient is a 66-year-old female who wasadmitted to us directly from her intermediate with a diagnosis of seizuredisorder, diabetes mellitus type 2, remote history of DVT, previousgoiter resection with hypothyroidism, history of MRDD, history ofhyponatremia, ongoing smoking history, and hyperlipidemia. Sheapparently did not like living at her community intermediate and istherefore now being admitted to our [...] closely.DICTATED BY: Fatmata Casey MDIAE/AcusisD:05/08/19 18 JOB# [id number]:[place] Normal [facility] Encounters Encounter Date Encounter Type Care Provider Facility Start: 08-30-2023 End: 08-31-2023 ambulatory DELMA NUNN Facility:[facility] Start: 05-31-2023 End: 06-01-2023 ambulatory DELMA NUNN Facility:[facility] Start: 05-31-2023 End: 05-31-2023 Patient encounter procedure DELMA NUNN [facility] Start: 02-14-2022 End: 02-14-2022 ambulatory [place] Head Facility:[facility] Start: 10-25-2021 ambulatory Gerald Fuentes Facilit y:[facility] Start: 09-01-2021 End: 09-06-2021 Evaluation and management of inpatient Services [facility] Facility:[facility] Start: 08-26-2021 End: 08-26-2021 ambulatory Cayla Fitt Other [employer] Other Start: 08-26-2021 Telephone encounter Cayla Fitt [facility] Start: 08-24-2021 End: 08-24-2021 ambulatory Services [facility] Facility:[facility] Start: 08-23-2021 End: 08-25-2021 ambulatory Services [facility] Facility:[facility] Start: 05-11-2021 End: 05-11-2021 ambulatory Cayla Fitt Other [employer] Other Start: 05-11-2021 Telephone encounter Cayla Fitt [facility] Start: 04-20-2021 End: 04-20-2021 ambulatory Cayla Fitt Other [employer] Other Start: 04-20-2021 Telephone encounter Cayla Fitt [facility] Start: 04-12-2021 End: 04-12-2021 ambulatory Cayla Fitt Other [employer] Other Start: 04-12-2021 Telephone encounter Cayla Fitt [facility] Procedures Date Procedure Procedure Detail Performing Clinician Start: 12-31-2018 Echocardiography Payers Date Payer Category Payer Unknown [id number] 2020 Medicaid [id number] 2. [id number] 2020 Medicare [id number] 2.1 [id number] 2020 Self-pay 1950 Unknown [id number] 2.16.8 [id number] 1950 Unknown [id number] 2.16.8 [id number] Unknown [id number] 2.16.8 [id number] Unknown [id number] 2.16.8 [id number] Unknown [id number] 2.16.8 [id number] Unknown [id number] 2.16.8 [id number] Unknown [id number] 2.16.8 [id number] Social History Date Type Detail Facility Sex Assigned At [facility] Tobacco smoking status No Smoking Status Entered [facility] Evaluation + Plan note Note Date & Type Note Facility Evaluation + Plan note No data available for this section [facility] Evaluation note Note Date & Type Note Facility Evaluation note No Information [facility] Other History general Narrative - Reported Note Date & Type Note Facility History general Narrative - Reported Type Medical History schizophrenia Medical History Hypothyroidism Medical History COPD Medical History Hypertension Medical History CAD Surgical History thyroidectomy Surgical History exploratory lap, SBO [employer] Other History general Narrative - Reported Note Date & Type Note Facility History general Narrative - Reported [facility] Other Hospital Discharge instructions Note Date & Type Note Facility Hospital Discharge instructions No data available for this section [facility] Progress note Note Date & Type Note Facility Progress note No data available for this section [facility] Summary Purpose Family History No Family History Records FoundNo Family History Records FoundNo Family History Records FoundNo Family History Records Found No data available for this section No Family History Records FoundNo Family History [...] Advanced Directives Records Found Hospital Course Note [facility] SURGERY Clinical Discharge Summary PERSON INFORMATION Name JEANMARIE GARCIA Age 68 Years 1950 Sex FEMALE Language Uzbek PCP GERALD FUENTES Marital Status Single Med Service Ambulatory Surgery Acct# Arrival 05/13/2019 05:53:00 Visit Reason SURGERY - INCISIONAL VENTRAL HERNIA REPAIR WITH MESH [facility]uity LOS 007 21:08 Address: [facility] [place] [address] Comment: PROVIDER INFORMATION VITALS INFORMATION Vital Sign [...] as needed as needed for pain. acetaminophen-hydrocodone ([place] 5 mg-325 mg oral tablet) 1 tab(s) Oral Every 6 hours as needed for pain. Refills: 0. a (more content not included)... Additional Source Comments INFORMATION SOURCE (unrecogn ized section and content) DATE CREATED AUTHOR 09/27/2017 [facility] DATE CREATED AUTHOR AUTHOR'S ORGANIZ ATION 01/11/2019 [facility] DATE CREATED AUTHOR AUTHOR'S ORGANIZ ATION 11/07/2019 [facility] DATE CREATED AUTHOR AUTHOR'S ORGANIZ ATION 05/13/2022 [facility] DATE CREATED AUTHOR AUTHOR'S ORGANIZ ATION 09/02/2023 [facility] REASON FOR VISIT (unrecogniz ed section and content) [facility] AppointmentReview DM pl an of care Patient Care team informatio n (unrecognized section and content) Personnel Name: DELMA NUNN CNP Address: Address: [facility] [place], [place] [address] FOR RECORDS PERTAINING TO PATIENTS [...] BE BASED ON THE PRIMARY CLINICAL RECORDS. [facility] [employer] [facility]. provides no warranty or guarantee of the accuracy or completeness of information in this document.
--- NOTE | 2023-09-15 13:05 | ED_ITS ---
HPI HPI - General Adult General Chief complaint: Shortness of Breath/Dyspnea Stated complaint: CHOKING Time Seen by Provider: 09/15/23 12:35 Source: patient Mode of arrival: ambulance History of Present Illness HPI narrative: Patient presents to the ED after choking episode. Apparently she was eating chicken and had an episode of choking in her care facility. She was given the Heimlich for different times and still continues to have periodic episodes of coughing and choking. Upon arrival she is stable and in no acute distress. Her oxygen saturation did not go below 93% and route per EMS. Patient states she is still feeling like there is something caught in her throat or in her lungs making her irritated and coughing on and off. She does have a history of a CVA and she has trouble with swallowing. Related Data Allergies Allergy/AdvReac Type Severity Reaction Status Date / Time No Known Drug Allergies Allergy Verified 09/15/23 12:38 Opioid HPI Opioid Management Most Recent Opioid Data: No Data to Display Review of Systems ROS Status of ROS 10 or more systems reviewed and unremark able except as noted in history and below Exam Narrative Exam Narrative: General: alert, no acute distress Cardiovascular: regular rate and rhythm, normal peripheral perfusion. Respiratory:Diminished breath sounds bilaterally respirations non labored. Extremities: no deformity, no trauma. Neurological: oriented x 4, LOC appropriate for age. Constitutional Vital Signs, click to edit/add: Last Vital Signs Temp 97.6 F 09/15/23 12:35 Pulse 97 H 09/15/23 13:00 Resp 16 09/15/23 13:00 BP 125/75 09/15/23 13:00 Pulse Ox 97 09/15/23 13:02 O2 Del Method Room Air 09/15/23 13:02 Course Vital Signs Vital signs: Vital Signs Temperature 97.6 F 09/15/23 12:35 Pulse Rate 97 H 09/15/23 12:35 Respiratory Rate 18 09/15/23 12:35 Blood Pressure 142/88 H 09/15/23 12:35 Pulse Oximetry 96 09/15/23 12:35 Oxygen Delivery Method Room Air 09/15/23 12:35 Temperature 97.6 F 09/15/23 12:35 Pulse Rate 97 H 09/15/23 13:00 Respiratory Rate 16 09/15/23 13:00 Blood Pressure 125/75 09/15/23 13:00 Pulse Oximetry 97 09/15/23 13:02 Oxygen Delivery Method Room Air 09/15/23 13:02 Medical Decision Making MDM Narrative Medical decision making narrative: I called anesthesia for John and they are not in-house. We do not have pulmonary critical care and we do not have GI. I am unable to further evaluate the patient for possible foreign body esophagus or foreign body lung. I do not feel comfortable laying her down in CAT scan or trying a p.o. challenge in case she gets into an acute airway situation and there is no further backup here. Therefore I called and spoke to [facility] and they said they do not have any beds available. I then called and spoke to [facility] and they suggested ER to ER transfer. I spoke to Dr. Pate who will accept the patient ER to ER for further evaluation of possible esophageal versus tracheal or bronchial foreign body. The patient is stable prior to transfer. Once evaluated at [facility] ER if she is found to be stable and no acute Findings or obstructions then she will be sent back to her care facility. This information was relayed to the patient and she is comfortable with care plan for transfer to [facility] for further evaluation. Differential Diagnosis Differential Diagnosis: Esophageal foreign body, tracheal foreign body Discharge Plan Discharge Chief Complaint: Shortness of Breath/Dyspnea Clinical Impression: Choking Patient Disposition: [facility] Time of Disposition Decision: 13:10 Discharge Location: [facility] Discharge location: [facility] Condition: Serious Mode of Transportation: EMS Print Language: Bhutanese Referrals: Physician,Non-Staff, MD [Primary Care Provider] - 1 week
== END 2023-09-15 14:43 | disposition short-term general hospital (02) ==
PROVIDERS: Emergency Provider Emergency Medicine
DX: R09.89 Other specified symptoms and signs involving the circulatory and respiratory systems (principal); R05.9 Cough, unspecified; Z86.73 Personal history of transient ischemic attack (TIA), and cerebral infarction without residual deficits
CPT/HCPCS: 71045; 93005; 99285

== ENCOUNTER 2023-11-23 02:58 | Outpatient (RCR) | payer MEDICARE, MEDICAID, SELFPAY ==
[2023-11-23 10:22] LABS: Estimated Average Glucose 137 mg/dL; Glycohemoglobin A1C 6.4 % (4.5-6.2)
== END 2023-12-08 23:59 | disposition home or self-care (01) ==
LOC: LAB 02:58
PROVIDERS: Visit Provider Nurse Practitioner Family
DX: E11.9 Type 2 diabetes mellitus without complications (principal)
CPT/HCPCS: 36415; 83036

== ENCOUNTER 2023-12-27 12:41 | Emergency (ER) | payer MEDICARE, MEDICAID, SELFPAY ==
[2023-12-27 12:55] VITALS: BP 152/90; PULSE 79; TEMP 36.6; O2SAT 100
--- NOTE | 2023-12-27 15:08 | PC.NURSE ---
complains of nausea onset unknown and this patient voices no other complaints and shows no signs of distress, per triage nurse this patient is refusing to take her medication
--- NOTE | 2023-12-27 15:16 | ED_ITS ---
HPI HPI - General Adult General Chief complaint: Nausea/Vomiting/Diarrhea Stated complaint: hard time swallowing Time Seen by Provider: 12/27/23 15:06 Source: patient and caregiver Mode of arrival: walk-in Limitations: no limitations History of Present Illness HPI narrative: 73-year-old female presents for not taking her medications. She is a very poor historian. She was sent in from [facility] because she has not been taking her meds. She apparently has been refusing to do so. She states that a month ago she choked on some food and she was transported to [facility] and she appears to have had some sort of endoscopy performed according to the patient. She is now on soft diet. They have been crushing her pills as well. We were able to obtain her EHR records from [facility]. She had choked on food and had foreign body in her bronchus and underwent bronchoscopy with foreign body retrieval. This had occurred in early September, just over 3 months ago. Related Data Home Medications ?Medication ?Instructions ?Recorded ?Confirmed atorvastatin 10 mg tablet 10 mg PO DAILY 09/15/23 12/27/23 benztropine 0.5 mg tablet 0.5 mg PO BID 09/15/23 12/27/23 cholecalciferol (vitamin D3) 125 125 mcg PO DAILY 09/15/23 12/27/23 mcg (5,000 unit) tablet dapagliflozin propanediol 10 mg 10 mg PO DAILY 09/15/23 12/27/23 tablet (Farxiga) finerenone 10 mg tablet (Kerendia) 10 mg PO DAILY 09/15/23 12/27/23 finerenone 10 mg tablet (Kerendia) 10 mg PO DAILY 09/15/23 12/27/23 levothyroxine 100 mcg tablet 100 mcg PO DAILY 09/15/23 12/27/23 losartan 50 mg tablet 50 mg PO BID 09/15/23 12/27/23 venlafaxine 37.5 mg 37.5 mg PO DAILY 09/15/23 12/27/23 capsule,extended release 24 hr Allergies Allergy/AdvReac Type Severity Reaction Status Date / Time No Known Drug Allergies Allergy Verified 12/27/23 12:57 Opioid HPI Opioid Management Most Recent Opioid Data: No Data to Display Review of Systems ROS Narrative Not obtainable, poor historian PFSH PFSH Social History Little interest or pleasure in doing things: not at all Feeling down, depressed, or hopeless: not at all Exam Narrative Exam Narrative: Nurses note and vital signs reviewed and patient is not hypoxic. General: The patient appears well and in no apparent distress. Patient is resting comfortably on cart. Her speech is difficult to understand and she states it has been like that for a long time, since she had thyroid surgery. Skin: Warm, dry, no pallor noted. There is no rash noted. Head: Normocephalic, atraumatic Eye: Normal conjunctiva, no drainage Ears, Nose, Mouth, and Throat: oral mucosa is moist. Nares patent. Cardiovascular: Regular Rate and Rhythm Respiratory: Patient is in no distress, no accessory muscle use, lungs are clear to auscultation, no wheezing, rales or rhonchi Back: non-tender GI: Soft and nontender Musculoskeletal: The patient has no evidence of calf tenderness, no pitting edema, symmetrical pulses noted bilaterally Neurological: Awake and alert Psychiatric: Cooperative Constitutional Vital Signs, click to edit/add: Last Vital Signs Temp 98 F 12/27/23 12:55 Pulse 79 12/27/23 12:55 Resp 18 12/27/23 12:55 BP 152/90 H 12/27/23 12:55 Pulse Ox 100 12/27/23 12:55 O2 Del Method Room Air 12/27/23 12:55 Course Vital Signs Vital signs: Vital Signs Temperature 98 F 12/27/23 12:55 Pulse Rate 79 12/27/23 12:55 Respiratory Rate 18 12/27/23 12:55 Blood Pressure 152/90 H 12/27/23 12:55 Pulse Oximetry 100 12/27/23 12:55 Oxygen Delivery Method Room Air 12/27/23 12:55 Temperature 98 F 12/27/23 12:55 Pulse Rate 79 12/27/23 12:55 Respiratory Rate 18 12/27/23 12:55 Blood Pressure 152/90 H 12/27/23 12:55 Pulse Oximetry 100 12/27/23 12:55 Oxygen Delivery Method Room Air 12/27/23 12:55 Medical Decision Making MDM Narrative Medical decision making narrative: CT scan is consistent with enteritis per radiologist. We were unable to draw blood on her and she would not let us attempt to draw blood again so there are no blood test performed. Findings are discussed with the patient and she was encouraged to take her medication as prescribed. Findings were discussed with the patient. Differential Diagnosis Differential Diagnosis: Dehydration, small bowel obstruction, enteritis Lab Data Lab results reviewed: Yes I reviewed the patient's lab results Labs: Lab Results 12/27/23 Range/Units 16:00 Urine Color Lt. yellow (YELLOW) Urine Clarity Clear (CLEAR) Urine pH 6.0 (5.0-9.0) Ur Specific [place] 1.015 (1.005-1.025) Urine Protein 30 A (NEG/TRACE) mg/dL Urine Glucose (UA) Negative (NEGATIVE) mg/dL Urine Ketones Negative (NEGATIVE) mg/dL Urine Occult Blood Negative (NEGATIVE) Urine Nitrite Negative (NEGATIVE) Urine Bilirubin Negative (NEGATIVE) Urine Urobilinogen 0.2 (0.2-1.0) EU/dL Ur Leukocyte Esterase Negative (NEGATIVE) Urine RBC 0-2 (0-2) #/HPF Urine WBC 0-2 A (NONE SEEN) #/HPF Ur Squamous Epith Cells Few A (NONE/RARE) #/LPF Urine Crystals None seen (None Seen) #/HPF Urine Bacteria Trace A (NONE SEEN) #/HPF Urine Casts None seen (NONE SEEN) #/LPF Urine Mucus None seen (NONE SEEN) Imaging Data CT scan - abdomen: Radiologist's impression: ITS Impressions Abdomen/Pelvis CT 12/27/23 16:41 IMPRESSION: 1. The small bowel is diffusely mildly dilated and fluid-filled. There is some fluid in the ascending colon. These findings are most likely related to acute enteritis. There is no evidence of small bowel obstruction. 2. No abnormal thickening or inflammation of the wall the colon. 3. Cholecystectomy. 4. No kidney stones or hydronephrosis. Electronically authenticated by: CLAUDIO CONLEY Date: 12/27/2023 17:10 Discharge Plan Discharge Chief Complaint: Nausea/Vomiting/Diarrhea Clinical Impression: Enteritis Patient Disposition: Home, Self-Care Time of Disposition Decision: 17:28 Condition: Good Mode of Transportation: Private Vehicle Prescriptions / Home Meds: No Action atorvastatin 10 mg tablet 10 mg PO DAILY cholecalciferol (vitamin D3) 125 mcg (5,000 unit) tablet 125 mcg PO DAILY Kerendia 10 mg tablet 10 mg PO DAILY levothyroxine 100 mcg tablet 100 mcg PO DAILY losartan 50 mg tablet 50 mg PO BID venlafaxine 37.5 mg capsule,extended release 24hr 37.5 mg PO DAILY benztropine 0.5 mg tablet 0.5 mg PO BID dapagliflozin propanediol [Farxiga] 10 mg tablet 10 mg PO DAILY Kerendia 10 mg tablet 10 mg PO DAILY Print Language: Maldivian Instructions: Enteritis (ED) Referrals: Physician,Non-Staff, MD [Primary Care Provider] - 1 week
[2023-12-27 16:20] LABS: Bilirubin Urine NEGATIVE (NEGATIVE); Blood Urine NEGATIVE (NEGATIVE); Clarity Urine CLEAR (CLEAR); Color Urine LT. YELLOW (YELLOW); Glucose Urine UA NEGATIVE (NEGATIVE); Ketones Urine NEGATIVE (NEGATIVE); Leukocyte Esterase Urine NEGATIVE (NEGATIVE); Nitrite Urine NEGATIVE (NEGATIVE); Protein Urine 30 mg/dL (NEG/TRACE); Specific Gravity Urine 1.015 (1.005-1.025); Urobilinogen Urine 0.2 EU/dL (0.2-1.0)
[2023-12-27 16:27] LABS: Bacteria Urine TRACE #/HPF (NONE SEEN); Cast Seen? NONE SEEN #/LPF (NONE SEEN); Crystals Seen? None Seen #/HPF (None Seen); Mucus Urine NONE SEEN (NONE SEEN); RBC Urine 0-2 #/HPF (0-2); Squamous Epithelial Cell Urine FEW #/LPF (NONE/RARE); WBC Urine 0-2 #/HPF (NONE SEEN)
--- NOTE | 2023-12-27 16:41 | CT_ITS ---
The [address] [address] Patient Name: JEANMARIE ONEILL MRN: [id number] date: 1950 Sex: F Assigned Patient Location: ER Current Patient Location: ER Accession/Order Number: [id number] Exam Date: 12/27/2023 16:34 Report Date: 12/27/2023 17:10 At the request of: ASHLY BRAVO Procedure: CT abdomen pelvis wo con CT ABDOMEN AND PELVIS WITHOUT CONTRAST, 12/27/2023. HISTORY: Diarrhea. Abdominal pain. COMPARISON: None. TECHNIQUE: Noncontrast axial CT images obtained through the abdomen and pelvis. Reconstructions obtained in the sagittal and coronal planes. Dose reduction techniques were achieved by using automated exposure control and/or adjustment of mA and/or kV according to patient size and/or use of iterative reconstruction technique. FINDINGS: Lung bases are clear. No pleural effusion. No pericardial effusion. No liver lesion. No intrahepatic bile duct dilatation. Cholecystectomy. Common bile duct normal in size. Pancreas normal. Spleen normal. Adrenal glands are normal. No kidney stones. No hydronephrosis. The stomach is normal. Duodenum normal. The small bowel is diffusely dilated and fluid-filled without evidence of small bowel obstruction. No pneumatosis. There is fluid in the ascending colon. No abnormal thickening or inflammation of the wall of the colon. Calcification of the abdominal aorta. Inferior vena cava normal in size. No ascites. No free air. No lymphadenopathy. In the pelvis, the bladder is normal. Uterus is unremarkable. Origins are unremarkable. Rectum normal. No free fluid in the pelvis. No pelvic lymphadenopathy. No paraspinal soft tissue swelling. There are no suspicious osseous lesions. Degenerative changes are seen in the lumbar spine and sacroiliac joints. CT/CT abdomen pelvis wo con IMPRESSION: 1. The small bowel is diffusely mildly dilated and fluid-filled. There is some fluid in the ascending colon. These findings are most likely related to acute enteritis. There is no evidence of small bowel obstruction. 2. No abnormal thickening or inflammation of the wall the colon. 3. Cholecystectomy. 4. No kidney stones or hydronephrosis. Electronically authenticated by: CLAUDIO CONLEY Date: 12/27/2023 17:10
[2023-12-27 18:12] VITALS: BP 142/83; PULSE 71; O2SAT 97
== END 2023-12-27 21:15 | disposition home or self-care (01) ==
PROVIDERS: Emergency Provider Emergency Medicine
DX: K52.9 Noninfective gastroenteritis and colitis, unspecified (principal); Z90.49 Acquired absence of other specified parts of digestive tract
CPT/HCPCS: 74176; 80048; 80076; 81001; 82150; 83690; 99284

== ENCOUNTER 2024-07-06 08:10 | Inpatient (IN) | payer MEDICARE, MEDICAID, SELFPAY ==
[2024-07-06] VITALS (51 sets, daily range): BP systolic 84–141; BP diastolic 54–79; PULSE 8–88; TEMP 36.4–36.6; O2SAT 90–100; BMI 33.9; BMI 31.7
--- NOTE | 2024-07-06 08:13 | ECG_ITS ---
The [facility] Test Date: 2024-07-06 Pat Name: JEANMARIE ONEILL Department: Room: - Gender: Female Patient Liaison: : 1950 Requested By: 1030 Order Number: [id number] Reading MD: MARIBETH CHILDS M.D. Measurements Intervals [place] Rate: 77 P: 72 NH: 176 QRS: -43 QRSD: 92 T: 73 QT: 378 QTc: 409 Interpretive Statements 1100 Sinus rhythm 2420 RSR (QR) in lead V1/V2, consistent with right ventricular conduction delay 3433 Septal myocardial infarction, probably old 7200 Abnormal left axis deviation 9150 abnormal ECG Compared to ECG 09/15/2023 12:37:29 Myocardial infarct finding now present Left-axis deviation now present Electronically Signed On 07-06-2024 20:12:55 EDT by MARIBETH CHILDS M.D.
--- NOTE | 2024-07-06 08:14 | ED.GENADUL1 ---
HPI HPI - General Adult General Chief complaint: Weakness Stated complaint: GENERAL WEAKNESS Time Seen by Provider: 07/06/24 08:13 Mode of arrival: ambulance History of Present Illness HPI narrative: 73-year-old female presents to the emergency department for several complaints. She was sent in by paramedics from [facility] because over the past few weeks she has not been walking well. They noticed that when she drank some water she spilled it on her chest and staff at the senior living reported that she was incontinent of urine. The patient tells me she has been having difficulty controlling her left arm for about 2 weeks. She states she has a headache sometimes. No history of fever or injury. Related Data Home Medications ?Medication ?Instructions ?Recorded ?Confirmed atorvastatin 10 mg tablet 10 mg PO DAILY 09/15/23 07/06/24 benztropine 0.5 mg tablet 0.5 mg PO BID 09/15/23 07/06/24 cholecalciferol (vitamin D3) 125 125 mcg PO DAILY 09/15/23 07/06/24 mcg (5,000 unit) tablet dapagliflozin propanediol 10 mg 10 mg PO DAILY 09/15/23 07/06/24 tablet (Farxiga) finerenone 10 mg tablet (Kerendia) 10 mg PO DAILY 09/15/23 07/06/24 finerenone 10 mg tablet (Kerendia) 10 mg PO DAILY 09/15/23 07/06/24 levothyroxine 100 mcg tablet 100 mcg PO DAILY 09/15/23 07/06/24 losartan 50 mg tablet 50 mg PO BID 09/15/23 07/06/24 venlafaxine 37.5 mg 37.5 mg PO DAILY 09/15/23 07/06/24 capsule,extended release 24 hr amantadine HCl 100 mg capsule 100 mg PO DAILY 07/06/24 07/06/24 aripiprazole 2 mg tablet 2 mg PO DAILY 07/06/24 07/06/24 cetirizine 10 mg tablet 10 mg PO DAILY 07/06/24 07/06/24 loperamide 1 mg/7.5 mL oral liquid 1 mg PO Q8H 07/06/24 07/06/24 (Anti-Diarrheal (loperamide)) sulfamethoxazole 800 1 tab PO Q12H 07/06/24 07/06/24 mg-trimethoprim 160 mg tablet Allergies Allergy/AdvReac Type Severity Reaction Status Date / Time No Known Drug Allergies Allergy Verified 12/27/23 12:57 Opioid HPI Opioid Management Most Recent Opioid Data: No Data to Display Review of Systems ROS Narrative A ten point review of systems is negative except as noted above. [facility] Medical History (Updated 07/06/24 @ 10:01 by Carlos Gonzales RN) Hypothyroidism ?E03.9 - Hypothyroidism, unspecified (ICD-10) Anemia ?D64.9 - Anemia, unspecified (ICD-10) Major depressive disorder ?F32.9 - Major depressive disorder, single episode, unspecified (ICD-10) Schizoaffective disorder, bipolar type ?F25.0 - Schizoaffective disorder, bipolar type (ICD-10) Muscle weakness ?M62.81 - Muscle weakness (generalized) (ICD-10) GERD (gastroesophageal reflux disease) ?K21.9 - Gastro-esophageal reflux disease without esophagitis (ICD-10) Heart failure ?I50.9 - Heart failure, unspecified (ICD-10) Hypertension ?I10 - Essential (primary) hypertension (ICD-10) Lack of coordination ?R27.9 - Unspecified lack of coordination (ICD-10) Tremor ?R25.1 - Tremor, unspecified (ICD-10) Dystonia ?G24.9 - Dystonia, unspecified (ICD-10) COPD (chronic obstructive pulmonary disease) ?J44.9 - Chronic obstructive pulmonary disease, unspecified (ICD-10) Diabetes mellitus ?E11.9 - Type 2 diabetes mellitus without complications (ICD-10) Social History Little interest or pleasure in doing things: not at all Feeling down, depressed, or hopeless: not at all Exam Narrative Exam Narrative: Nurses note and vital signs reviewed and patient is not hypoxic. General: The patient appears in no apparent distress. Skin: Warm, dry, no pallor noted. There is no rash noted. Head: Normocephalic, atraumatic Eye: Normal conjunctiva, no drainage Ears, Nose, Mouth, and Throat: oral mucosa is moist. Nares patent. Cardiovascular: Regular Rate and Rhythm Respiratory: Patient is in no distress, no accessory muscle use, lungs are clear to auscultation, no wheezing, rales or rhonchi Back: non-tender GI: no tenderness to palpation, no masses appreciated. No rebound, guarding, or rigidity noted. Musculoskeletal: The patient has no evidence of calf tenderness, no pitting edema, symmetrical pulses noted bilaterally Neurological: Alert and oriented. Her speech is difficult to understand but she states has been like that since thyroid surgery years ago. She is able to lift each leg off the bed individually and has no issues raising her right arm. Her left arm is tremors when she lifts it. She has difficulty with fine motor control of all muscle groups of the left arm. Psychiatric: Cooperative Constitutional Vital Signs, click to edit/add: Last Vital Signs Temp 97.9 F 07/06/24 09:52 Pulse 83 07/06/24 09:40 Resp 16 07/06/24 09:40 BP 113/61 07/06/24 08:12 Pulse Ox 96 07/06/24 09:20 O2 Del Method Room Air 07/06/24 08:11 Course Vital Signs Vital signs: Vital Signs Pulse Rate 82 07/06/24 08:11 Respiratory Rate 18 07/06/24 08:11 Blood Pressure 113/61 07/06/24 08:11 Pulse Oximetry 94 L 07/06/24 08:11 Oxygen Delivery Method Room Air 07/06/24 08:11 Temperature 97.9 F 07/06/24 09:52 Pulse Rate 83 07/06/24 09:40 Respiratory Rate 16 07/06/24 09:40 Blood Pressure 113/61 07/06/24 08:12 Pulse Oximetry 96 07/06/24 09:20 Oxygen Delivery Method Room Air 07/06/24 08:11 Medical Decision Making [facility] Narrative Medical decision making narrative: She is found to have a blood sugar of 1185. Serum acetone is negative and bicarb is normal and her chemistries. VBG shows a pH of 7.24. She was given IV fluids and IV insulin. Potassium 6.6 and this will get rechecked and should correct with the IV fluids and IV insulin. She is being admitted. At this point I have no clinical suspicion of the stroke. BUN and creatinine are elevated above her baseline. Differential Diagnosis Differential Diagnosis: Hyperglycemia, UTI, stroke Medical Records Medical records reviewed: Yes I reviewed the patient's medical records Lab Data Lab results reviewed: Yes I reviewed the patient's lab results Labs: Lab Results 07/06/24 07/06/24 07/06/24 Range/Units 08:30 09:42 09:53 WBC 8.9 (4.0-11.0) 10^3/uL RBC 4.36 (4.20-5.40) 10^6/uL Hgb 12.8 (12.0-16.0) g/dL Hct 39.3 (36.0-48.0) % MCV 90.1 (81.0-99.0) fL MCH 29.4 (26.7-34.0) pg MCHC 32.6 (29.9-35.2) g/dL RDW 14.3 (11.0-15.0) % Plt Count 198 (150-450) 10^3/uL MPV 11.2 (9.5-13.5) fL Neut % (Auto) 76.2 H (43.0-75.0) % Lymph % (Auto) 12.4 L (20.5-60.0) % Norton % (Auto) 4.7 (1.7-12.0) % Eos % (Auto) 6.3 (0.9-7.0) % Baso % (Auto) 0.2 (0.2-2.0) % Neut # (Auto) 6.8 H (1.4-6.5) 10^3/uL Lymph # (Auto) 1.1 L (1.2-3.8) 10^3/uL Norton # (Auto) 0.4 (0.3-0.8) 10^3/uL Eos # (Auto) 0.6 (0.0-0.7) 10^3/uL Baso # (Auto) 0.0 (0.0-0.1) 10^3/uL Abs Immat Gran (auto) 0.02 (0.00-0.03) 10^3/uL Imm/Tot Granulo (auto) 0.2 (0.0-0.5) % VBG pH 7.241 L (7.330-7.430) VBG pCO2 61.2 H (40.0-52.0) mmHg Sodium 121 L* (136-145) mmol/L Potassium 6.6 H* (3.5-5.1) mmol/L Chloride 87 L (98-107) mmol/L Carbon Dioxide 25.0 (21.0-32.0) mmol/L Anion Gap 15.6 BUN 38.0 H (7.0-18.0) mg/dL Creatinine 2.28 H (0.55-1.02) mg/dL Est GFR ( Amer) 26 L (>=60 mL/min/1.73m^2) Est GFR (Non-Af Amer) 21 L (>=60 mL/min/1.73m^2) BUN/Creatinine Ratio 16.7 Glucose 1185 H* (74-106) mg/dL Calcium 9.4 (8.5-10.1) mg/dL Troponin I High Sens 43.4 (4.0-51.3) pg/mL Urine Color Lt. yellow (YELLOW) Urine Clarity Clear (CLEAR) Urine pH 6.0 (5.0-9.0) Ur Specific [place] <=1.005 A (1.005-1.025) Urine Protein Negative (NEG/TRACE) mg/dL Urine Glucose (UA) >=1000 A (NEGATIVE) mg/dL Urine Ketones Negative (NEGATIVE) mg/dL Urine Occult Blood Negative (NEGATIVE) Urine Nitrite Negative (NEGATIVE) Urine Bilirubin Negative (NEGATIVE) Urine Urobilinogen 0.2 (0.2-1.0) EU/dL Ur Leukocyte Esterase Negative (NEGATIVE) Urine RBC 0-2 (0-2) #/HPF Urine WBC 0-2 A (NONE SEEN) #/HPF Ur Squamous Epith Cells None seen (NONE/RARE) #/LPF Urine Crystals None seen (None Seen) #/HPF Urine Bacteria None seen (NONE SEEN) #/HPF Urine Casts None seen (NONE SEEN) #/LPF Urine Mucus None seen (NONE SEEN) Ur Culture Indicated? No Acetone, Qual Negative (NEGATIVE) Imaging Data Chest x-ray, CT head: Radiologist's impression: CT brain: No acute intracranial process chest x-ray: No acute cardiopulmonary process ECG Data Attestation: I personally reviewed and interpreted this ECG as follows: (EKG on my interpretation shows normal sinus rhythm with a rate of 77 and no acute change) Critical Care Time Critical Care Time Critical Care Time: Yes Total Critical Care Time: 40 Attestation: Due to the high probability of sudden and clinically significant deterioration in the patient's condition he/she required the highest level of my preparedness to intervene urgently I provided critical care time including documentation time, medication orders and management, reevaluation, vital sign assessment, ordering and reviewing of lab tests, ordering and reviewing of x-ray studies, and admission orders. Aggregate critical care time is 40 minutes including only time during which I was engaged in work directly related to his/her care and did not include time spent treating other patients simultaneously. Discharge Plan Discharge Chief Complaint: Weakness Clinical Impression: Hyperglycemia, Hyperkalemia Patient Disposition: Admitted As Inpatient Time of Disposition Decision: 09:54 Condition: Fair
--- OUTSIDE RECORDS SUMMARY | 2024-07-06 08:22 | XMS_ITS | CCD ---
Author Organization [facility] ion Partnership [facility] Care Team Providers Care Reliability Technicians Name Role Phone Cayla Gamez Unavailable [facility] Primary Care Unavaila Martin Gu Attending Unavailable Elizabet Wilson Admitting Unavailable [facility] Services Primary Care Unavaila Isael Villatoro Attending Unavailable Isael Castro Admitting Unavailable Austin Head Consulting Unavailable [facility] Primary Care Unavaila Evert Hamlin Attending Unavailable Evert Grant Admitting Unavailable [facility] Primary Care Unavaila Fuad Jennings Attending Unavailable Fuad Pillai Admitting Unavailable Gerald Fuentes Primary Care Unavailable Amando Soto Attending Unavailable Amando Soto Admitting Unavailable DELMA NUNN Primary Care Physician [phone] DELMA NUNN Admitting Unavailable DELMA NUNN Attending Unavailable DELMA NUNN Primary Care Unavailable DELMA NUNN Admitting Unavailable DELMA NUNN Attending Unavailable DELMA NUNN Primary Care Unavailable MADHURI REZA Primary Care Unavailable FRANKO WHITE Attending Unavailable NEHA ROY Consulting Unavailable SMITA MESA Admitting Unavailable GERALD BARBER Referring Unaalexisi MADHURI Aviles Primary Care Unavailable FRANKO WHITE Attending Unavailable FRANKO WHITE Referring Unavailable MADHURI REZA Primary Care Unavailable KEYSHA REYNOSO Referring Unavailable MADHURI REZA Primary Care Unavailable DELMA NUNN Admitting Unavailable DELMA NUNN Attending Unavailable DELMA NUNN Primary Care Unavailable DELMA NUNN Attending Unavailable DELMA NUNN Primary Care Unavailable DELMA NUNN Admitting Unavailable DELMA NUNN Admitting Unavailable DELMA NUNN Primary Care Unavailable DELMA NUNN Attending Unavailable Madhuri Reza DO Primary Care Provider [phone] Medications Current Medications Medication Drug Class(es) Dates Sig (Normalized) Sig (Original) [id number] 200 actuat albuterol 0.09 mg/actuat metered dose inhaler (4 sources) beta2-Adrenergic Agonist take 2 puff(s) by inhalation every four hours as needed Ventolin HFA 108 (90 Base) MCG/ACT 2 puffs as needed Inhalation every 4 hrs Active amoxicillin 875 mg / clavulanate 125 mg oral tablet (4 sources) Penicillin-class Antibacterial Start: 09-17-2023 End: 09-25-2023 take 1 tablet by mouth once amoxicillin-pot clavulanate (AUGMENTIN) 875-125 mg per tablet Take 1 tablet by mouth every 12 (twelve) hours for 8 days. 16 tablet 09/17/2023 09/25/2023 Active aspirin 81 mg oral tablet (4 sources) Platelet Aggregation Inhibitor, Nonsteroidal Anti-inflammatory Drug take 1 tablet by mouth once daily Aspirin 81 MG 1 tablet Orally Once a day Active take 1 tablet by mouth every twe nty-four hours Calcium (4 sources) Phosphate Binder, Calcium Calcium Active carvedilol 3.125 mg oral tablet (4 sources) alpha-Adrenergic Tacos, beta-Adrenergic Tacos take 1 tablet by mouth every twelve hours Carvedilol 3.125 MG 1 tablet with food Orally Twice a day for 30 day(s) Active finerenone 10 mg tablet (2 sources) take 1 tablet by mouth in the morning finerenone 10 mg tablet Take 10 mg by mouth in the morning. Active take 1 tablet by mouth in the mo rning finerenone 10 mg tablet Take 10 mg by mouth in the morning. furosemide 20 mg oral tablet (4 sources) [...] 100 UNIT/ML 10 units Subcutaneous qhs Active loperamide hydrochloride 2 mg oral tablet [...] 1 capsule Inhalation Once a day Active Vitamin B-12 1000 MCG (1 source) [...] Once a day for 30 day(s) Active Completed/Discontinued Medications Medication Drug Class(es) Dates Sig (Normalized) Sig (Original) acetaminophen 325 mg oral tablet (5 sources) Start: 09-16-2023 End: 09-17-2023 take 1 capsule by mouth every si x hours Acetaminophen 500 MG 1 capsule as needed Orally every 6 hrs Active ampicillin-sulbactam (UNASYN) 3,000 mg in sodium chloride 0.9 % 100 mL IVPB-MBP (2 sources) Start: 09-16-2023 End: 09-17-2023 take 3000 mg intravenously every six hours 3,000 mg, intravenous, at 200 mL/hr, Administer over 30 Minutes, Every 6 hours, First dose (after last reorder) on 09/16/23 at 0100, ADD-VANTAGE/MBP- Discard 8 hours after activating; dissolve drug prior to administration., Indication: Hospital-acquired pneumonia Start: 09-15-2023 End: 09-15-2023 3,000 mg, intravenous, at 20 0 mL/hr, Administer over 30 Minutes, Once, On 09/15/23 at 1840, For 1 dose, ADD-VANTAGE/MBP- Discard 8 hours after activating; dissolve drug prior to administration., Indication: Hospital-acquired pneumonia atorvastatin 20 mg oral tablet (3 sources) HMG-CoA Reductase Inhibitor Start: 09-15-2023 End: 09-17-2023 take 10 mg by mouth once daily 10 mg, oral, Nightly, First dose on 09/15/23 at 2200, Look-alike/sound-alike medication - verify indication for use. take 1 tablet by kory th once daily at bedtime atorvastatin (LIPITOR) 10 mg tablet Take 1 tablet (10 mg total) by mouth once daily at bedtime. Active barium sulfate (VARIBAR PUDDING) 40 % (w/v), 30% (w/w) oral paste 60 mL (1 source) Start: 09-17-2023 End: 09-17-2023 60 mL, oral, Once in imaging, contrast, barium sulfate (VARIBAR PUDDING) 40 % (w/v), 30% (w/w) oral paste, Starting on Sun09/17/23 at 0844, For 1 dose barium sulfate (VARIBAR THIN) 81 % (w/w) powder 148 g (1 source) Start: 09-17-2023 End: 09-17-2023 148 g, oral, Once in imaging, contrast, barium sulfate (VARIBAR THIN) 40 % (w/v) powder, Starting on 09/17/23 at 0844, For 1 dose benztropine mesylate 0.5 mg oral tablet (7 sources) Anticholinergic, Antihistamine Start: 09-16-2023 End: 09-17-2023 take 0.5 mg by mouth twice daily 0.5 mg, oral, 2 times daily, First dose on Sun09/16/23 at 0900 take 1 tablet by kory th in the morning, then take 1 tablet by mouth at bedtime benztropine (COGENTIN) 0.5 mg tablet Mauri e 1 tablet (0.5 mg total) by mouth in the morning and 1 tablet (0.5 mg total) before bedtime. Active cholecalciferol 0.05 mg oral tablet (3 sources) Vitamin D Start: 09-16-2023 End: 09-17-2023 take 2000 [IU] by mouth once daily 2,000 Units, oral, Daily, First dose on 09/16/23 at 0900 take 1 capsule by [facility] in the morning cholecalciferol, vitamin D3, 2,000 units capsule Take 1 capsule (2,000 Units total) by mouth in the morning. Active dapagliflozin 10 mg oral tablet (3 sources) Sodium-Glucose Cotransporter 2 Inhibitor Start: 09-15-2023 End: 09-17-2023 take 10 mg by mouth once daily 10 mg, oral, Daily, First dose on 09/15/23 at 2014 docusate sodium 50 mg / sennosides, fpc 8.6 mg oral tablet (1 source) Start: 09-16-2023 End: 09-17-2023 take 1 tablet by mouth every twelve hours as needed for constipation glucagon (rdna) 1 mg injection (1 source) Antihypoglycemic Agent Start: 09-16-2023 End: 09-17-2023 150 ml glucose 50 mg/ml injection (3 sources) Start: 09-16-2023 End: 09-17-2023 Start: 09-16-2023 End: 09-17-2023 Start: 09-16-2023 End: 09-17-2023 levothyroxine sodium 0.1 mg oral tablet (7 sources) l-Thyroxine Start: 09-16-2023 End: 09-17-2023 100 mcg, oral, Daily, First dose on 09/16/23 at 0600, Look-alike/sound-alike medication. Verify indication for use Administer on empty stomach at least ONE hour before or TWO hours after food Enteral Feeding: For 7 days or less of tube feeding- do NOT hold tube feedings, after 7 days- hold tube feedings ONE hour before and ONE hour after administration DOES NOT APPLY TO NEONATES Monitor thyroid function tests weekly Synthroid 125 MC G 1 tablet every morning on an empty stomach Orally Once a day for 30 day(s) Active losartan potassium 50 mg oral tablet (3 sources) Angiotensin 2 Receptor Tacos Start: 09-15-2023 End: 09-17-2023 take 50 mg by mouth once daily 50 mg, oral, Daily, First dose on 09/15/23 at 2015, Look-alike/sound-alike medication - verify indication for use. 2 ml ondansetron 2 mg/ml injection (3 sources) Serotonin-3 Receptor Antagonist Start: 09-16-2023 End: 09-17-2023 take 4 mg intravenously every eight hours as needed for nausea and vomiting take 1 tablet by kory th once daily as needed for nausea ondansetron (ZOFRAN) 4 mg tablet Take 1 tablet (4 mg total) by mouth daily as needed for nausea or vomiting. Active 1000 ml sodium chloride 9 mg/ml injection (4 sources) Start: 09-16-2023 End: 09-17-2023 take 75 mL intravenously every hour 75 mL/hr, intravenous, Continuous, Starting on 09/16/23 at 0045 Start: 09-16-2023 End: 09-17-2023 take 25 mL intravenously every hour as needed 25 mL, intravenous, at 100 mL/hr, Administer over 15 Minutes, As needed, line care, line care after IVPB administration, Starting on 09/16/23 at 0036 Start: 09-16-2023 End: 09-17-2023 Start: 09-15-2023 End: 09-17-2023 3 mL, intravenous, As needed , line care, before and after each intermittent use, Starting on 09/15/23 at 1837 venlafaxine 37.5 mg oral tablet (7 sources) Serotonin and Norepinephrine Reuptake Inhibitor Start: 09-16-2023 End: 09-17-2023 take 37.5 mg by mouth once daily 37.5 mg, oral, Daily, First dose on 09/16/23 at 0900, Look-alike/sound-alike medication - verify indication for use. take 1 tablet by kory th every twenty-four hours Venlafaxine HCl 100 MG 1 tablet with keyona d Orally Once a day for 30 day(s) [...] B group vitamins] Onset: 09-01-2021 Episodic Other circulatory disease (1 source) Choking Onset: 09-15-2023 Episodic Other injuries and conditions due to external causes (1 source) Unspecified foreign body in bronchus causing other injury, initial encounter; Translations: [Unspecified foreign body in bronchus causing other injury, initial encounter] Onset: 09-15-2023 Episodic Other nervous system disorders (1 source) [...] with chronic cholecystitis without obstruction] Onset: 08-23-2021 Unclassified (1 source) Foreign Body in Throat Onset: 09-15-2023 Unclassified (1 source) EMS/// 73 y/o F Onset: 09-15-2023 Past or Other Problems Problem Classification Problem [...] Translations: [E87.6 - Hypokalemia] Onset: 09-01-2021 Episodic Mood disorders (1 source) Mood disorders Onset: 09-16-2023 09-16-2023 Other injuries and conditions due to external causes (3 sources) Foreign body in bronchus; Translations: [Unspecified foreign body in bronchus causing other injury, initial encounter] Onset: 09-15-2023 09-15-2023 Episodic Other nervous system disorders (1 source) [...] Test Name Value Interpretation Reference Range Facility [facility] 05-07-2024 Albumin [Mass/Vol] 4.4 g/dL Normal 3.3-5.0 [facility] Comment on above: Performed By: #### 2 [id number] #### [facility] [address] [place] [address] Albumin/Globulin (S) [Mass conc ratio] 1.2 Normal 1.1-2.2 [facility] Comment on above: Performed By: #### 2 [id number] #### [facility] [address] [place] [address] ALP [Catalytic activity/Vol] 94 Int._Unit/L Normal 21-98 [facility] Comment on above: Performed By: #### 2 [id number] #### [facility] [address] [place] [address] ALT No additional P-5'-P [Catalytic activity/Vol] 15 Int._Unit/L Normal 6-46 [facility] Comment on above: Performed By: #### 2 [id number] #### [facility] [address] [place] [address] Anion gap [Moles/Vol] 10 mmol/L Normal 6-16 [facility] Comment on above: Performed By: #### 2 [id number] #### [facility] [address] [place] [address] AST [Catalytic activity/Vol] 15 Int._Unit/L Normal 5-43 [facility] Comment on above: Performed By: #### 2 [id number] #### [facility] [address] [place] [address] Bilirubin [Mass/Vol] 0.5 mg/dL Normal 0.0-1.1 [facility] Comment on above: Performed By: #### 2 [id number] #### [facility] [address] [place] [address] Calcium [Mass/Vol] 9.5 mg/dL Normal 8.9-11.1 [facility] Comment on above: Performed By: #### 2 [id number] #### [facility] [address] [place] [address] Chloride [Moles/Vol] 104 mmol/L Normal 101-111 [facility] Comment on above: Performed By: #### 2 [id number] #### [facility] [address] [place] [address] CO2 [Moles/Vol] 29 mmol/L Normal 21-31 [facility] Comment on above: Performed By: #### 2 [id number] #### [facility] [address] [place] [address] Creatinine [Mass/Vol] 1.5 mg/dL High 0.5-1.3 [facility] Comment on above: Performed By: #### 2 [id number] #### [facility] [address] [place] [address] Globulin (S) [Mass/Vol] 3.6 g/dL Normal 1.4-4.0 [facility] Comment on above: Performed By: #### 2 [id number] #### [facility] [address] [place] [address] Glucose [Mass/Vol] 102 mg/dL Normal 55-199 [facility] Comment on above: Performed By: #### 2 [id number] #### [facility] [address] [place] [address] Potassium [Moles/Vol] 4.2 mmol/L Normal 3.5-5.3 [facility] Comment on above: Performed By: #### 2 [id number] #### [facility] [address] [place] [address] Protein [Mass/Vol] 8.0 g/dL High 6.0-7.8 [facility] Comment on above: Performed By: #### 2 [id number] #### [facility] [address] [place] [address] Sodium [Moles/Vol] 139 mmol/L Normal 135-145 [facility] Comment on above: Performed By: #### 2 [id number] #### [facility] [address] [place] [address] Urea nitrogen [Mass/Vol] 29 mg/dL High 5-21 [facility] Comment on above: Performed By: #### 2 [id number] #### [facility] [address] [place] [address] Urea nitrogen/Creatinine [Mass ratio] 19 No Units Normal 10-20 [facility] Comment on above: Performed By: #### 2 [id number] #### [facility] [address] [place] [id number] NhbN3idi 05-07-2024 HbA1c (Bld) [Mass fraction] 7.3 % High <=5.9 [facility] Comment on above: Performed By: #### 7 [id number] #### [facility] [address] [place] [address] T4 & TSHon 05-07-2024 T4 [Mass/Vol] 8.7 microgram/dL Normal 4.6-9.1 [facility] Comment on above: Performed By: #### 1 [id number] #### [facility] [address] [place] [address] TSH Qn 9.74 m[IU]/L High 0.34-5.60 [facility] Comment on above: Performed By: #### 1 [id number] #### [facility] [address] [place] [address] eGFRon 05-07-2024 eGFR 37 mL/min/1.73 m2 Low >=59 [facility] Comment on above: Performed By: #### 1 [id number] #### [facility] [address] [place], [place] [id number] Body Fluid cell count with d ifferentialon 09-17-2023 Appearance (Body fld) CLEAR [facility] Color (Body fld) COLORLESS [facility] comment Ton (Report) Interpretati on-------- [facility] Comment on above: Reference values for this fluid type are undefined, as fluid accumulation is considered abnormal. ASSORTED LINING CELLS PRESENT Macrophages (Body fld) [#/Vol] 2 % [facility] Neutrophils/100 WBC (Body fld) 98 % [facility] Nucleated RBC (Body fld) [#/Vol] 41 /uL [facility] RBC (Body fld) [#/Vol] 0.001 10*3/uL [facility] Specimen type Nom (Spec) BRONCHOALVEOLAR LAVAGE [facility] Comment on above: LUNG RT MIDDLE LOBE [facility] FL SWALLOW MOTILITY FUNCTION on 09-17-2023 FL SWALLOW MOTILITY FUNCTION FL SWALLOW MOTILITY FUNCTION FL SWALLOW MOTILITY FUNCTION HISTORY: Oropharyngeal dysphagia COMPARISON: None TECHNIQUE: Video fluoroscopic swallow study was performed in conjunction with speech pathologist. Barium contrast materials of varying consistencies administered. FINDINGS: Fluoroscopy time: 55 seconds Reference air kerma: 1.41 mGy Runs: 8 Thin: Penetration with straw. No aspiration with straw. No penetration or aspiration with cup. Applesauce: No penetration or aspiration. Fruit: No penetration or aspiration. Cracker: No penetration or aspiration. Surgical clips overlying the anterior neck. IMPRESSION: 1. Abnormal swallow study as detailed above. 2. Please correlate with dedicated speech pathology report for additional details and recommendations. Approved by Resident Elli Lopez DO on 09/17/2023 9:02 AM Brian Arreaga MD have personally reviewed the image(s) and agree with and/or edited the report Finalized by Brian Baker MD on 09/17/2023 9:06 AM [facility] RF videography Hypopharynx a nd Esophagus Viewson 09-17-2023 FL SWALLOW MOTILITY FUNCTION HISTORY: Oropharyngeal dysphagia COMPARISON: None TECHNIQUE: Video fluoroscopic swallow study was performed in conjunction with speech pathologist. Barium contrast materials of varying consistencies administered. FINDINGS: Fluoroscopy time: 55 seconds Reference air kerma: 1.41 mGy Runs: 8 Thin: Penetration with straw. No aspiration with straw. No penetration or aspiration with cup. Applesauce: No penetration or aspiration. Fruit: No penetration or aspiration. Cracker: No penetration or aspiration. Surgical clips overlying the anterior neck. IMPRESSION: 1. Abnormal swallow study as detailed above. 2. Please correlate with dedicated speech pathology report for additional details and recommendations. Approved by Resident Elli Lopez DO on 09/17/2023 9:02 AM Brian Arreaga MD have personally reviewed the image(s) and agree with and/or edited the report Finalized by Brian Baker MD on 09/17/2023 9:06 AM Brian Mujica MD - 09/17/2023 FL SWALLOW MOTILITY FUNCTION HISTORY: Oropharyngeal dysphagia COMPARISON: None TECHNIQUE: Video fluoroscopic swallow study was performed in conjunction with speech pathologist. Barium contrast materials of varying consistencies administered. FINDINGS: Fluoroscopy time: 55 seconds Reference air kerma: 1.41 mGy Runs: 8 Thin: Penetration with straw. No aspiration with straw. No penetration or aspiration with cup. Applesauce: No penetration or aspiration. Fruit: No penetration or aspiration. Cracker: No penetration or aspiration. Surgical clips overlying the anterior neck. IMPRESSION: 1. Abnormal swallow study as detailed above. 2. Please correlate with dedicated speech pathology report for additional details and recommendations. Approved by Resident Elli Lopez DO on 09/17/2023 9:02 AM IBrian MD have personally reviewed the image(s) and agree with and/or edited the report Finalized by Brian Baker MD on 09/17/2023 9:06 AM [facility] Radiology Study observation (narrative) [facility] [employer] RF videography Hypopharynx a nd Esophagus ViewsOrdered By: Brian Bkaer on 09-17-2023 [facility] Work Phone: AFB CULTURE(CONCENTRATED)on 09-16-2023 Mycobacterium sp identified Org specific cx Nom (Unsp spec) AFB SMEAR NO ACID FAST BACILLI (CONCENTRATED SMEAR) CULTURE RESULTS NO ACID FAST BACILLI ISOLATED IN 8 WEEKS Normal [facility] Comment on above: Performed By: #### 3 3-, 78376-2, CBCA, 72311-3, CMP, THYR, 96193-1, PINR #### [facility] ([id number]) [address] [place] [address] AND DIFFon 2023 BODY FLUID COMMENT Interpreta ti on-------- Normal [facility] Comment on above: Result Comment: Refe rence values for this fluid type are undefined, as fluid accumulation is considered abnormal. ASSORTED LINING CELLS PRESENT Performed By: #### 3 3-, 10445-0, CBCA, 99190-4, CMP, THYR, 31715-2, PINR #### [facility] ([id number]) [address], [address] [place] [address] FLUID CLARITY CLEAR Normal [facility] Comment on above: Performed By: #### 3 2132-1, 15454-6, CBCA, 54315-2, CMP, THYR, 98200-7, PINR #### [facility] ([id number]) [address], [address] [place] [address] FLUID COLOR COLORLESS Normal [facility] Comment on above: Performed By: #### 3 2132-, 10708-3, CBCA, 00693-4, CMP, THYR, 54079-6, PINR #### [facility] ([id number]) [address], [address] [place] [address] FLUID NEUTROPHILS 98 % Normal [facility] Comment on above: Performed By: #### 3 2132-, 66367-2, CBCA, 75577-6, CMP, THYR, 39335-2, PINR #### [facility] ([id number]) [address], [address] [place] [address] 1 /uL Normal [facility] Comment on above: Performed By: #### 3 2132-, 01293-6, CBCA, 81318-2, CMP, THYR, 37608-1, PINR #### [facility] ([id number]) [address], [address] [place] [address] FLUID SPECIMEN TYPE BRONCHOALVEOLAR LAVAGE Normal [facility] Comment on above: Result Comment: LUNG RT MIDDLE LOBE Performed By: #### 3 2132-, 94497-7, CBCA, 26702-6, CMP, THYR, 65929-0, PINR #### [facility] ([id number]) [address], [address] [place] [address] MACROPHAGES 2 % Normal [facility] Comment on above: Performed By: #### 3 2132-1, 09403-4, CBCA, 37988-2, CMP, THYR, 79849-1, PINR #### [facility] ([id number]) [address] [place] [address] 41 /uL Normal [facility] Comment on above: Performed By: #### 3 2132-, 00450-4, CBCA, 13485-7, CMP, THYR, 48485-8, PINR #### [facility] ([id number]) [address] [place] [address] CBC AND AUTO DIFFon 09-16-19 24 ABSOLUTE BASOPHIL 0.0 X10E9/L Normal 0.0-0.2 [facility] Comment on above: Performed By: #### C MP, CBCA #### [facility] ([id number]) [address] [place] [address] ABSOLUTE NEUTROPHIL 6.3 X10E9/L Normal 1.5-6.6 [facility] Comment on above: Performed By: #### C MP, CBCA #### [facility] ([id number]) [address], [address] [place] [address] Basophils/100 WBC (Bld) 0.3 % Normal [facility] Comment on above: Performed By: #### C MP, CBCA #### [facility] ([id number]) [address], [address] [place] [address] Eosinophils (Bld) [#/Vol] 0.5 10*3/uL High 0.0-0.4 [facility] Comment on above: Performed By: #### C MP, CBCA #### [facility] ([id number]) [address], [address] [place] [address] Eosinophils/100 WBC (Bld) 5.3 % Normal [facility] Comment on above: Performed By: #### C MP, CBCA #### [facility] ([id number]) [address] [place] [address] Erythrocyte distribution width (RBC) [Ratio] 15.1 % High 11.5-15.0 [facility] Comment on above: Performed By: #### C MP, CBCA #### [facility] ([id number]) [address] [place] [address] Hematocrit (Bld) [Volume fraction] 35.8 % Normal 35-47 [facility] Comment on above: Performed By: #### C MP, CBCA #### [facility] ([id number]) [address] [address] Hemoglobin (Bld) [Mass/Vol] 12.0 g/dL Normal 11.7-15.5 [facility] [facility] Comment on above: Performed By: #### C MP, CBCA #### [facility] ([id number]) [address] [place] [address] Lymphocytes (Bld) [#/Vol] 2.1 10*3/uL Normal 1.0-3.5 [facility] Comment on above: Performed By: #### C MP, CBCA #### [facility] ([id number]) [address] [address] Lymphocytes/100 WBC (Bld) 21.9 % Normal [facility] Comment on above: Performed By: #### C MP, CBCA #### [facility] ([id number]) [address] [address] [place] [address] MCH (RBC) [Entitic mass] 29.5 pg Normal 27-34 [facility] Comment on above: Performed By: #### C MP, CBCA #### [facility] ([id number]) [address] [place] [address] MCHC (RBC) [Mass/Vol] 33.5 g/dL Normal 32-36 [facility] Comment on above: Performed By: #### C MP, CBCA #### [facility] ([id number]) [address] [place] [address] MCV (RBC) [Entitic vol] 88 fL Normal 80-100 [facility] Comment on above: Performed By: #### C MP, CBCA #### [facility] ([id number]) [address] [place] [address] Monocytes (Bld) [#/Vol] 0.8 10*3/uL Normal 0-0.9 [facility] Comment on above: Performed By: #### C MP, CBCA #### [facility] ([id number]) [address] [place] [address] Monocytes/100 WBC (Bld) 7.7 % Normal [facility] Comment on above: Performed By: #### C MP, CBCA #### [facility] ([id number]) [address] [place] [address] Neutrophils/100 WBC (Bld) 64.8 % Normal [facility] Comment on above: Performed By: #### C MP, CBCA #### [facility] ([id number]) [address] [place] [address] Platelet mean volume (Bld) [Entitic vol] 8.0 fL Normal 7-12 [facility] Comment on above: Performed By: #### C MP, CBCA #### [facility] ([id number]) [address] [place] [address] Platelets (Bld) [#/Vol] 208 10*3/uL Normal 150-450 [facility] Comment on above: Performed By: #### C MP, CBCA #### [facility] ([id number]) [address] [place] [address] RBC COUNT 4.07 X10E12/L Normal 3.80-5.20 [facility] Comment on above: Performed By: #### C MP, CBCA #### [facility] ([id number]) [address] [place] [address] WBC (Bld) [#/Vol] 9.8 10*3/uL Normal 4.0-11.0 [facility] Comment on above: Performed By: #### C MP, CBCA #### [facility] ([id number]) [address] [place] [address] CBC auto differentialon 06-0 Basophils (Bld) [#/Vol] 0.0 10*3/uL [facility] Basophils/100 WBC (Bld) 0.3 % [facility] Eosinophils (Bld) [#/Vol] 0.5 10*3/uL High [facility] Eosinophils/100 WBC (Bld) 5.3 % [facility] Erythrocyte distribution width (RBC) [Ratio] 15.1 % High 11.5 - 15.0 % [facility] Hematocrit (Bld) [Volume fraction] 35.8 % 35 - 47 % [facility] Hemoglobin (Bld) [Mass/Vol] 12.0 g/dL 11.7 - 15.5 g/dL [facility] Interpretation and review of laboratory results Abnormal [facility] Lymphocytes (Bld) [#/Vol] 2.1 10*3/uL [facility] Lymphocytes/100 WBC (Bld) 21.9 % [facility] MCH (RBC) [Entitic mass] 29.5 pg 27 - 34 pg [facility] MCHC (RBC) [Mass/Vol] 33.5 g/dL 32 - 36 g/dL [facility] MCV (RBC) [Entitic vol] 88 fL 80 - 100 fL [facility] Monocytes (Bld) [#/Vol] 0.8 10*3/uL [facility] Monocytes/100 WBC (Bld) 7.7 % [facility] Neutrophils (Bld) [#/Vol] 6.3 10*3/uL [facility] Neutrophils/100 WBC (Bld) 64.8 % [facility] Platelet mean volume (Bld) [Entitic vol] 8.0 fL 7 - 12 fL [facility] Platelets (Bld) [#/Vol] 208 10*3/uL [facility] RBC (Bld) [#/Vol] 4.07 10*6/uL [facility] WBC corrected for nucl RBC Auto (Bld) [#/Vol] 9.8 [facility] COMPREHENSIVE METABOLIC PANE Eric 09-16-2023 Albumin [Mass/Vol] 3.7 g/dL Normal 3.2-5.3 [facility] Comment on above: Performed By: #### 3 2132-1, 37982-2, CBCA, 93884-4, CMP, THYR, 18416-1, PINR #### [facility] ([id number]) [address] [place] [address] ALP [Catalytic activity/Vol] 89 U/L Normal 39-130 [facility] Comment on above: Performed By: #### 3 2132-, 09782-8, CBCA, 65336-3, CMP, THYR, 69752-7, PINR #### [facility] ([id number]) [address] [place] [address] ALT [Catalytic activity/Vol] 16 U/L Normal 0-31 [facility] Comment on above: Performed By: #### 3 2132-1, 89055-7, CBCA, 69943-2, CMP, THYR, 79350-4, PINR #### [facility] ([id number]) [address] [place] [address] Anion gap [Moles/Vol] 8 mmol/L Normal 5-15 [facility] Comment on above: Performed By: #### 3 2132-04, 39324-3, CBCA, 82788-3, CMP, THYR, 30250-7, PINR #### [facility] ([id number]) [address] [place] [address] AST [Catalytic activity/Vol] 18 U/L Normal 0-41 [facility] Comment on above: Performed By: #### 3 2132-, 97346-8, CBCA, 05349-0, CMP, THYR, 53132-7, PINR #### [facility] ([id number]) [address] [place] [address] Bilirubin [Mass/Vol] 0.8 mg/dL Normal 0.3-1.2 [facility] Comment on above: Performed By: #### 3 2132-04, 82325-8, CBCA, 75360-5, CMP, THYR, 95292-0, PINR #### [facility] ([id number]) [address] [place] [address] Calcium [Mass/Vol] 8.7 mg/dL Normal 8.5-10.5 [facility] Comment on above: Performed By: #### 3 2132-04, , CBCA, 97418-2, CMP, THYR, 87278-0, PINR #### [facility] ([id number]) [address] [place] [address] Chloride [Moles/Vol] 106 mmol/L Normal 98-109 [facility] Comment on above: Performed By: #### 3 2132-04, 28887-2, CBCA, 05978-4, CMP, THYR, 10473-7, PINR #### [facility] ([id number]) [address] [place] [address] CO2 [Moles/Vol] 28 mmol/L Normal 22-32 [facility] Comment on above: Performed By: #### 3 2132-, , CBCA, 82780-7, CMP, THYR, 86392-9, PINR #### [facility] ([id number]) [address] [place] [address] Creatinine [Mass/Vol] 0.99 mg/dL Normal 0.40-1.00 [facility] Comment on above: Result Comment: METH OD TRACEABLE TO IDMS STANDARD Performed By: #### 3 2132-, , CBCA, 74836-9, CMP, THYR, 22954-8, PINR #### [facility] ([id number]) [address] [facility] [address] [place] [address] GFR/1.73 sq M.predicted among non-blacks MDRD (S/P/Bld) [Vol rate/Area] 61 mL/min/{1.73_m2} Normal >59 [facility] Comment on above: Result Comment: Reported eGFR is based on the CKD-EPI 2020 equation that does not use a race coefficient. Performed By: #### 3 2132-04, , CBCA, 22534-1, CMP, THYR, 85891-1, PINR #### [facility] ([id number]) [address] [place] [address] Glucose [Mass/Vol] 98 mg/dL Normal 65-99 [facility] Comment on above: Performed By: #### 3 2132-04, 39237-9, CBCA, 08733-8, CMP, THYR, 75639-2, PINR #### [facility] ([id number]) [address] [place] [address] Potassium [Moles/Vol] 4.0 mmol/L Normal 3.5-5.0 [facility] Comment on above: Performed By: #### 3 2132-04, 09416-2, CBCA, 94755-6, CMP, THYR, 94841-7, PINR #### [facility] ([id number]) [address] [place] [address] Protein [Mass/Vol] 6.7 g/dL Normal 6.0-8.0 [facility] Comment on above: Performed By: #### 3 2132-1, 82758-7, CBCA, 65377-1, CMP, THYR, 37237-3, PINR #### [facility] ([id number]) [address] [place] [address] Sodium [Moles/Vol] 142 mmol/L Normal 134-146 [facility] Comment on above: Performed By: #### 3 2132-1, 78483-3, CBCA, 81098-1, CMP, THYR, 63078-7, PINR #### [facility] ([id number]) [address] [place] [address] Urea nitrogen [Mass/Vol] 22 mg/dL Normal 5-27 [facility] Comment on above: Performed By: #### 3 2132-1, 65321-7, CBCA, 23919-9, CMP, THYR, 59643-6, PINR #### [facility] ([id number]) [address], [address] [place] [address] Comprehensive metabolic pane eric 09-16-2023 Albumin [Mass/Vol] 3.7 g/dL 3.2 - 5.3 g/dL [facility] ALP [Catalytic activity/Vol] 89 U/L 39 - 130 U/L [facility] ALT No additional P-5'-P [Catalytic activity/Vol] 16 U/L 0 - 31 U/L [facility] Anion gap [Moles/Vol] 8 mmol/L 5 - 15 mmol/L [facility] AST [Catalytic activity/Vol] 18 U/L 0 - 41 U/L [facility] Bilirubin [Mass/Vol] 0.8 mg/dL 0.3 - 1 .2 mg/dL [facility] Calcium [Mass/Vol] 8.7 mg/dL 8.5 - 10. 5 mg/dL [facility] Chloride [Moles/Vol] 106 mmol/L 98 - 10 9 mmol/L [facility] CO2 [Moles/Vol] 28 mmol/L 22 - 32 mmol/L [facility] Creatinine [Mass/Vol] 0.99 mg/dL 0.40 - 1.00 mg/dL [facility] Comment on above: METHOD TRACEABLE TO [facility] STANDARD eGFR (CKD-EPI)non-race dependent 61 - PINF [facility] Comment on above: Reported eGFR is based on the CKD-EPI 2020 equation that does not use a race coefficient. Glucose [Mass/Vol] 98 mg/dL 65 - 99 mg/dL [facility] Potassium [Moles/Vol] 4.0 mmol/L 3.5 - 5.0 mmol/L [facility] Protein [Mass/Vol] 6.7 g/dL 6.0 - 8.0 g/dL [facility] Sodium [Moles/Vol] 142 mmol/L 134 - 146 mmol/L [facility] Urea nitrogen [Mass/Vol] 22 mg/dL 5 - 27 mg/dL [facility] Cytologyon 09-16-2023 Cytology Normal [facility] Comment on above: Result Comment: [facility] [address] [place] [address] Cytology Consultation Patient Name:JEANMARIE GARCIA:1950 (Age: 73)Gender:FTaken:09/16/2023eported:09/19/2023 13:24Physician(s):AMY MONTAGUE DO ([phone])Copy To:Keysha Reynoso M.D. Rec. #:[id number]: #[id number] Final Cytologic Diagnosis Lung, right middle lobe, bronchial alveolar lavage: No malignant cells identified. nxk/09/19/2023 Interpretation performed at [facility] [address], License number: [id number].Electronically Signed Out By Earnest Stanford MD Clinical History Foreign body. Gross Description Received was 15 mL of clear fluid unfixed labeled as Garcia, lung, right middle lobe, bronchial alveolar lavage . CytoLyt added in lab. Specimen placed in formalin at 10:00 and had a total fixation time of 15 hours. Source of Specimen Lung, right middle lobe, bronchial alveolar lavage Cell block for Non-brick and block mason (M), Level 2 H&E, Non [employer]ITE [employer] Fee Code(s): 1; 41117, 49343 FUNGAL CULTUREon 09-16-2023 Fungus identified Cx Nom (Unsp spec) FUNGAL SMEAR NO FUNGAL ELEMENTS SEEN ON CONCENTRATED SMEAR CULTURE RESULTS NO FUNGUS ISOLATED AFTER 4 WEEKS Normal [facility] Comment on above: Performed By: #### 3 3-, 30040-3, CBCA, 11029-4, CMP, THYR, 41244-0, PINR #### [facility] ([id number]) [address] [facility] [place] [address] LOWER RESPIRATORY CULTUREon 09-16-2023 Bacteria identified Respiratory culture Nom (Sput) GRAM STAIN 1 to 9 WHITE BLOOD CELLS/LPF 0 to 1 SQUAMOUS EPITHELIAL CELLS/LPF 0 CILIATED EPITHELIAL CELLS/LPF NO ORGANISMS SEEN CULTURE RESULTS NO GROWTH 2 DAYS Normal [facility] Comment on above: Performed By: #### 3 3-, 34260-9, CBCA, 96936-8, CMP, THYR, 03206-1, PINR #### [facility] ([id number]) [address] [place] [address] RF Guidance for bronchoscopy of Cheston 09-16-2023 This order has been auto-finalized for image and report archival in PACs. *For full report details, please reach out to your physician. This image is visible to you in MyChart.* [facility] XR Chest Single viewon 09-15 Leilani Rizo DO - 09/16/2023 Procedure: Chest x-ray performed Number of views:AP portable upright History:Cough Comparison:None Findings: The heart and lungs show no acute findings, and the mediastinum and maribel are grossly negative . Impression: No acute change. Finalized by Leilani Rizo DO on 09/16/2023 8:39 AM [facility] Radiology Study observation (narrative) [facility] XR Chest Single viewOrdered By: Leilani Rizo on 09-16-2023 [facility] Work Phone: APTTon 09-15-2023 aPTT Coag (PPP) [Time] 29 s [facility] CBC AND AUTO DIFFon 09-15-19 24 ABSOLUTE BASOPHIL 0.1 X10E9/L Normal 0.0-0.2 [facility] Comment on above: Performed By: #### 3 2132-04, 71653-4, CBCA, 24351-4, CMP, THYR, 88046-5, PINR #### [facility] ([id number]) [address], [address] [place] [address] ABSOLUTE NEUTROPHIL 8.1 X10E9/L High 1.5-6.6 [facility] Comment on above: Performed By: #### 3 2132-04, , CBCA, 15537-0, CMP, THYR, 62105-2, PINR #### [facility] ([id number]) [address] [place] [address] Basophils/100 WBC (Bld) 0.5 % Normal [facility] Comment on above: Performed By: #### 3 2132-04, , CBCA, 54910-8, CMP, THYR, 28909-0, PINR #### [facility] ([id number]) [address], [address] [place] [address] Eosinophils (Bld) [#/Vol] 0.5 10*3/uL High 0.0-0.4 [facility] Comment on above: Performed By: #### 3 2132-04, , CBCA, 35740-3, CMP, THYR, 22406-4, PINR #### [facility] ([id number]) [address], [address] [place] [address] Eosinophils/100 WBC (Bld) 4.1 % Normal [facility] Comment on above: Performed By: #### 3 2132-, , CBCA, 57635-4, CMP, THYR, 65090-4, PINR #### [facility] ([id number]) [address] [facility] [address] [place] [address] Erythrocyte distribution width (RBC) [Ratio] 15.0 % Normal 11.5-15.0 [facility] Comment on above: Performed By: #### 3 2132-, , CBCA, 27715-0, CMP, THYR, 96221-0, PINR #### [facility] ([id number]) [address] [address] [place] [address] Hematocrit (Bld) [Volume fraction] 38.0 % Normal 35-47 [facility] Comment on above: Performed By: #### 3 2132-04, , CBCA, 93038-2, CMP, THYR, 40551-8, PINR #### [facility] ([id number]) [address] [address] [place] [address] Hemoglobin (Bld) [Mass/Vol] 12.3 g/dL Normal 11.7-15.5 [facility] Comment on above: Performed By: #### 3 2132-04, , CBCA, 67178-7, CMP, THYR, 15693-1, PINR #### [facility] ([id number]) [address] [place] [address] Lymphocytes (Bld) [#/Vol] 2.5 10*3/uL Normal 1.0-3.5 [facility] Comment on above: Performed By: #### 3 2132-, 66931-4, CBCA, 59611-3, CMP, THYR, 76832-8, PINR #### [facility] ([id number]) [address] [place] [address] Lymphocytes/100 WBC (Bld) 20.8 % Normal [facility] Comment on above: Performed By: #### 3 2132-, , CBCA, 00697-9, CMP, THYR, 69622-0, PINR #### [facility] ([id number]) [address], [address] [place] [address] MCH (RBC) [Entitic mass] 28.7 pg Normal 27-34 [facility] Comment on above: Performed By: #### 3 2132-04, , CBCA, 85023-9, CMP, THYR, 66064-7, PINR #### [facility] ([id number]) [address] [place] [address] MCHC (RBC) [Mass/Vol] 32.5 g/dL Normal 32-36 [facility] Comment on above: Performed By: #### 3 2132-04, , CBCA, 55224-8, CMP, THYR, 13241-5, PINR #### [facility] ([id number]) [address] [place] [address] MCV (RBC) [Entitic vol] 88 fL Normal 80-100 [facility] Comment on above: Performed By: #### 3 2132-, 43064-9, CBCA, 80984-0, CMP, THYR, 63288-7, PINR #### [facility] ([id number]) [address] [place] [address] Monocytes (Bld) [#/Vol] 0.7 10*3/uL Normal 0-0.9 [facility] Comment on above: Performed By: #### 3 2132-, 54581-5, CBCA, 17185-3, CMP, THYR, 96883-8, PINR #### [facility] ([id number]) [address] [place] [address] Monocytes/100 WBC (Bld) 6.2 % Normal [facility] Comment on above: Performed By: #### 3 2132-, 27022-5, CBCA, 32061-7, CMP, THYR, 66194-6, PINR #### [facility] ([id number]) [address], [address] [place] [address] Neutrophils/100 WBC (Bld) 68.4 % Normal [facility] Comment on above: Performed By: #### 3 2132-04, , CBCA, 17003-4, CMP, THYR, 41061-0, PINR #### [facility] ([id number]) [address] [place] [address] Platelet mean volume (Bld) [Entitic vol] 8.2 fL Normal 7-12 [facility] Comment on above: Performed By: #### 3 2132-04, , CBCA, 35496-2, CMP, THYR, 10252-0, PINR #### [facility] ([id number]) [address] [place] [address] Platelets (Bld) [#/Vol] 229 10*3/uL Normal 150-450 [facility] Comment on above: Performed By: #### 3 2132-, 87026-9, CBCA, 96574-0, CMP, THYR, 61528-9, PINR #### [facility] ([id number]) [address] [place] [address] RBC COUNT 4.30 X10E12/L Normal 3.80-5.20 [facility] Comment on above: Performed By: #### 3 3-1, 98648-5, CBCA, 04253-4, CMP, THYR, 89429-3, PINR #### [facility] ([id number]) [address], [address] [place] [address] WBC (Bld) [#/Vol] 11.9 10*3/uL High 4.0-11.0 [facility] Comment on above: Performed By: #### 3 2132-1, 19145-4, CBCA, 55131-9, CMP, THYR, 17877-1, PINR #### [facility] ([id number]) [address] [facility] [place] [address] CBC auto differentialon 06-0 Basophils (Bld) [#/Vol] 0.1 10*3/uL [facility] Basophils/100 WBC (Bld) 0.5 % [facility] Eosinophils (Bld) [#/Vol] 0.5 10*3/uL High [facility] Eosinophils/100 WBC (Bld) 4.1 % [facility] Erythrocyte distribution width (RBC) [Ratio] 15.0 % 11.5 - 15.0 % [facility] Hematocrit (Bld) [Volume fraction] 38.0 % 35 - 47 % [facility] Hemoglobin (Bld) [Mass/Vol] 12.3 g/dL 11.7 - 15.5 g/dL [facility] Interpretation and review of laboratory results Abnormal [facility] Lymphocytes (Bld) [#/Vol] 2.5 10*3/uL [facility] Lymphocytes/100 WBC (Bld) 20.8 % [facility] MCH (RBC) [Entitic mass] 28.7 pg 27 - 34 pg [facility] MCHC (RBC) [Mass/Vol] 32.5 g/dL 32 - 36 g/dL [facility] MCV (RBC) [Entitic vol] 88 fL 80 - 100 fL [facility] Monocytes (Bld) [#/Vol] 0.7 10*3/uL [facility] Monocytes/100 WBC (Bld) 6.2 % [facility] Neutrophils (Bld) [#/Vol] 8.1 10*3/uL High [facility] Neutrophils/100 WBC (Bld) 68.4 % [facility] Platelet mean volume (Bld) [Entitic vol] 8.2 fL 7 - 12 fL [facility] Platelets (Bld) [#/Vol] 229 10*3/uL [facility] RBC (Bld) [#/Vol] 4.30 10*6/uL [facility] dica [facility] WBC corrected for nucl RBC Auto (Bld) [#/Vol] 11.9 High [facility] COMPREHENSIVE METABOLIC PANE Eric 09-15-2023 Albumin [Mass/Vol] 4.0 g/dL Normal 3.2-5.3 [facility] Comment on above: Performed By: #### 3 2132-1, 85869-5, CBCA, 01837-2, CMP, THYR, 42562-7, PINR #### [facility] ([id number]) [address] [place] [address] ALP [Catalytic activity/Vol] 97 U/L Normal 39-130 [facility] Comment on above: Performed By: #### 3 2132-1, 81139-6, CBCA, 37859-2, CMP, THYR, 76997-7, PINR #### [facility] ([id number]) [address] [place] [address] ALT [Catalytic activity/Vol] 19 U/L Normal 0-31 [facility] Comment on above: Performed By: #### 3 2132-1, 68566-0, CBCA, 32845-0, CMP, THYR, 06956-7, PINR #### [facility] ([id number]) [address] [place] [address] Anion gap [Moles/Vol] 8 mmol/L Normal 5-15 [facility] Comment on above: Performed By: #### 3 2132-1, 53084-2, CBCA, 12245-0, CMP, THYR, 29060-7, PINR #### [facility] ([id number]) [address] [place] [address] AST [Catalytic activity/Vol] 16 U/L Normal 0-41 [facility] Comment on above: Performed By: #### 3 2132-, 62729-2, CBCA, 74854-8, CMP, THYR, 99081-1, PINR #### [facility] ([id number]) [address] [place] [address] Bilirubin [Mass/Vol] 0.4 mg/dL Normal 0.3-1.2 [facility] Comment on above: Performed By: #### 3 2132-, 14879-6, CBCA, 93258-9, CMP, THYR, 07875-0, PINR #### [facility] ([id number]) [address] [place] [address] Calcium [Mass/Vol] 9.1 mg/dL Normal 8.5-10.5 [facility] Comment on above: Performed By: #### 3 2132-, 69426-8, CBCA, 50882-4, CMP, THYR, 99011-3, PINR #### [facility] ([id number]) [address], [address] [place] [address] Chloride [Moles/Vol] 105 mmol/L Normal 98-109 [facility] Comment on above: Performed By: #### 3 2132-, 72777-8, CBCA, 07620-9, CMP, THYR, 34212-1, PINR #### [facility] ([id number]) [address], [address] [place] [address] CO2 [Moles/Vol] 29 mmol/L Normal 22-32 [facility] Comment on above: Performed By: #### 3 2132-, , CBCA, 33753-6, CMP, THYR, 80504-1, PINR #### [facility] ([id number]) [address], [address] [place] [address] Creatinine [Mass/Vol] 1.04 mg/dL High 0.40-1.00 [facility] Comment on above: Result Comment: METH OD TRACEABLE TO IDMS STANDARD Performed By: #### 3 2132-04, , CBCA, 43849-4, CMP, THYR, 53853-6, PINR #### [facility] ([id number]) [address] [facility] [place] [address] GFR/1.73 sq M.predicted among non-blacks MDRD (S/P/Bld) [Vol rate/Area] 57 mL/min/{1.73_m2} Low >59 [facility] Comment on above: Result Comment: Reported eGFR is based on the CKD-EPI 2020 equation that does not use a race coefficient. Performed By: #### 3 2132-04, , CBCA, 72519-4, CMP, THYR, 48488-5, PINR #### [facility] ([id number]) [address], [address] [place] [address] Glucose [Mass/Vol] 101 mg/dL High 65-99 [facility] Comment on above: Performed By: #### 3 2132-04, , CBCA, 89767-9, CMP, THYR, 10104-0, PINR #### [facility] ([id number]) [address], [address] [place] [address] Potassium [Moles/Vol] 4.1 mmol/L Normal 3.5-5.0 [facility] Comment on above: Performed By: #### 3 2132-04, , CBCA, 25409-7, CMP, THYR, 92256-2, PINR #### [facility] ([id number]) [address], [address] [place] [address] Protein [Mass/Vol] 7.5 g/dL Normal 6.0-8.0 [facility] Comment on above: Performed By: #### 3 3-1, 38054-9, CBCA, 73808-6, CMP, THYR, 17195-6, PINR #### [facility] ([id number]) [address], [address] [place] [address] Sodium [Moles/Vol] 142 mmol/L Normal 134-146 [facility] Comment on above: Performed By: #### 3 3-1, 50204-2, CBCA, 01610-1, CMP, THYR, 85137-9, PINR #### [facility] ([id number]) [address], [address] [place] [address] Urea nitrogen [Mass/Vol] 25 mg/dL Normal 5-27 [facility] Comment on above: Performed By: #### 3 2132-1, 93280-8, CBCA, 97011-7, CMP, THYR, 56951-1, PINR #### [facility] ([id number]) [address], [address] [place] [address] CT CHEST WO CONTon CT CHEST WO CONT CT CHEST WO CONT *ADDENDUM*Upon targeted retrospective review, small filling defect within bronchus intermedius, measures approximately 6 mm; can be seen with aspiration, inspissated mucous plugging, etc. Finalized by Rui Boswell MD on 09/15/2023 6:40 PM Normal [facility] CT Chest WO contraston 09-14 Addendum by Rui Boswell MD on 09/15/2023 6:40 PM EDT *ADDENDUM*Upon targeted retrospective review, small filling defect within bronchus intermedius, measures approximately 6 mm; can be seen with aspiration, inspissated mucous plugging, etc. Finalized by Rui Boswell MD on 09/15/2023 6:40 PM [facility] CLINICAL HISTORY: Aspiration pneumonia. COMPARISON: None. TECHNIQUE: CT chest was performed without the use of IV contrast. Automated exposure control was utilized. FINDINGS: Limited evaluation of the hilar regions and vessels in the absence of IV contrast. LUNG/PLEURA: Probable tracheobronchomalacia. Mosaic attenuation. Bandlike left basilar atelectasis/scarring. No focal consolidation or effusion. No pneumothorax. HEART and GREAT VESSELS: Heart is normal in size. Trace pericardial fluid. Moderate coronary calcification. No pericardial effusion. Ascending aorta measures approximately 3.8 cm on this nondedicated study. MEDIASTINUM and LYMPH NODES: No enlarged axillary or mediastinal lymph nodes. Esophagus is nondilated. UPPER ABDOMEN: Focal soft tissue fullness of the mid pancreatic body. Right hemicolon dilatation up to approximately 7-8 cm. A 3 cm lesion of the left kidney, 30-32 Hounsfield units, indeterminate.. Cholecystectomy. Diastases of the upper rectus. MUSCULOSKELETAL AND LOWER NECK Postsurgical changes of the thyroid. No acute osseous abnormality. IMPRESSION: 1. No focal consolidation or other evidence for aspiration. 2. Partially imaged large bowel dilatation. Equivocal soft tissue fullness in the mid pancreatic body. Indeterminate left renal mass. Short-term CT of the abdomen/pelvis (with contrast) recommended. All CT scans at this facility use dose modulation, iterative reconstruction, and/or weight based dosing when appropriate to reduce radiation dose to as low as reasonably achievable. Finalized by Rui Boswell MD on 09/15/2023 5:47 PM [facility] Rui Boswell MD - 09/15/2023 CLINICAL HISTORY: Aspiration pneumonia. COMPARISON: None. TECHNIQUE: CT chest was performed without the use of IV contrast. Automated exposure control was utilized. FINDINGS: Limited evaluation of the hilar regions and vessels in the absence of IV contrast. LUNG/PLEURA: Probable tracheobronchomalacia. Mosaic attenuation. Bandlike left basilar atelectasis/scarring. No focal consolidation or effusion. No pneumothorax. HEART and GREAT VESSELS: Heart is normal in size. Trace pericardial fluid. Moderate coronary calcification. No pericardial effusion. Ascending aorta measures approximately 3.8 cm on this nondedicated study. MEDIASTINUM and LYMPH NODES: No enlarged axillary or mediastinal lymph nodes. Esophagus is nondilated. UPPER ABDOMEN: Focal soft tissue fullness of the mid pancreatic body. Right hemicolon dilatation up to approximately 7-8 cm. A 3 cm lesion of the left kidney, 30-32 Hounsfield units, indeterminate.. Cholecystectomy. Diastases of the upper rectus. MUSCULOSKELETAL AND LOWER NECK Postsurgical changes of the thyroid. No acute osseous abnormality. IMPRESSION: 1. No focal consolidation or other evidence for aspiration. 2. Partially imaged large bowel dilatation. Equivocal soft tissue fullness in the mid pancreatic body. Indeterminate left renal mass. Short-term CT of the abdomen/pelvis (with contrast) recommended. All CT scans at this facility use dose modulation, iterative reconstruction, and/or weight based dosing when appropriate to reduce radiation dose to as low as reasonably achievable. Finalized by Rui Boswell MD on 09/15/2023 5:47 PM [facility] Radiology Study observation (narrative) [facility] CT Chest WO contrastOrdered By: Rui Boswell on 09-15-2023 [facility] Work Phone: Comprehensive metabolic pane eric 09-15-2023 Albumin [Mass/Vol] 4.0 g/dL 3.2 - 5.3 g/dL [facility] ALP [Catalytic activity/Vol] 97 U/L 39 - 130 U/L [facility] ALT No additional P-5'-P [Catalytic activity/Vol] 19 U/L 0 - 31 U/L [facility] Anion gap [Moles/Vol] 8 mmol/L 5 - 15 mmol/L [facility] AST [Catalytic activity/Vol] 16 U/L 0 - 41 U/L [facility] Bilirubin [Mass/Vol] 0.4 mg/dL 0.3 - 1 .2 mg/dL [facility] Calcium [Mass/Vol] 9.1 mg/dL 8.5 - 10. 5 mg/dL [facility] Chloride [Moles/Vol] 105 mmol/L 98 - 10 9 mmol/L [facility] CO2 [Moles/Vol] 29 mmol/L 22 - 32 mmol/L [facility] Creatinine [Mass/Vol] 1.04 mg/dL High 0.40 - 1.00 mg/dL [facility] Comment on above: METHOD TRACEABLE TO IDWY STANDARD eGFR (CKD-EPI)non-race dependent 57 Low - PINF [facility] Comment on above: Reported eGFR is based on the CKD-EPI 2020 equation that does not use a race coefficient. Glucose [Mass/Vol] 101 mg/dL High 65 - 99 mg/dL [facility] Interpretation and review of laboratory results Abnormal [facility] Potassium [Moles/Vol] 4.1 mmol/L 3.5 - 5.0 mmol/L [facility] Protein [Mass/Vol] 7.5 g/dL 6.0 - 8.0 g/dL [facility] Sodium [Moles/Vol] 142 mmol/L 134 - 146 mmol/L [facility] Urea nitrogen [Mass/Vol] 25 mg/dL 5 - 27 mg/dL [facility] Lactate (P andrew) [Moles/Vol]o n 09-15-2023 [facility] LACTATE W/REFLEX 0.8 mmol/L Normal 0.4-2.0 [facility] Comment on above: Result Comment: Result did not trigger repeat Lactate, re-order if needed. Performed By: #### 3 3-1, 50349-8, CBCA, 32864-3, CMP, THYR, 42533-9, PINR #### [facility] ([id number]) [address], [address] [place] [address] Lactate w/ Reflexon 09-15-19 24 Lactate (P andrew) [Moles/Vol] 0.8 mmol/L 0.4 - 2.0 mmol/L [facility] Comment on above: Result did not trigger repeat Lactate, re-order if needed. MAGNESIUMon 09-15-2023 Magnesium [Mass/Vol] 2.1 mg/dL Normal 1.8-2.6 [facility] Comment on above: Performed By: #### 3 3-1, 51627-7, CBCA, 16990-6, CMP, THYR, 40883-2, PINR #### [facility] ([id number]) [address], [address] [place] [address] Magnesiumon 09-15-2023 Magnesium [Mass/Vol] 2.1 mg/dL 1.8 - 2 .6 mg/dL [facility] Natriuretic peptide B [Mass/ Vol]on 09-15-2023 Natriuretic peptide B (Bld) [Mass/Vol] 20 pg/mL NINF - 100.0 pg/mL [facility] Natriuretic peptide B (Bld) [Mass/Vol] 20 pg/mL Normal <100.0 [facility] Comment on above: Performed By: #### 3 2132-1, , CBCA, 18935-2, CMP, THYR, 11435-0, PINR #### [facility] ([id number]) [address], [address] [place] [address] No Panel Informationon 09-14 [facility] PROTIME AND INRon 09-15-2023 INR Coag (PPP) [Relative time] 1.0 {INR} Normal 0.8-1.1 [facility] Comment on above: Performed By: #### 3 2132-1, 17063-2, CBCA, 86610-8, CMP, THYR, 95533-3, PINR #### [facility] ([id number]) [address], [address] [place] [address] PT Coag (PPP) [Time] 11.5 s Normal 9.8-13.2 [facility] Comment on above: Performed By: #### 3 2132-1, 88363-0, CBCA, 72061-5, CMP, THYR, 05918-5, PINR #### [facility] ([id number]) [address], [address] [place] [address] Protime & INRon 09-15-2023 INR Coag (PPP) [Relative time] 1.0 {INR} [facility] PT Coag (PPP) [Time] 11.5 s [facility] THYROID PROFILEon 09-15-2023 Free T4 [Mass/Vol] 0.84 ng/dL Normal 0.61-1.60 [facility] Comment on above: Performed By: #### 3 2132-04, , CBCA, 93178-4, CMP, THYR, 89634-1, PINR #### [facility] ([id number]) [address], [address] [place] [address] TSH 1.26 uIU/mL Normal 0.49-4.67 [facility] Comment on above: Performed By: #### 3 2132-04, , CBCA, 57868-2, CMP, THYR, 49810-0, PINR #### [facility] ([id number]) [address], [address] [place] [address] Thyroid profile includes TSH FT4on 09-15-2023 Free T4 [Mass/Vol] 0.84 ng/dL 0.61 - 1. 60 ng/dL [facility] TSH Qn 1.26 m[IU]/L [facility] aPTT Coag (PPP) [Time]on aPTT Coag (Bld) [Time] 29 s Normal 26-37 [facility] Comment on above: Performed By: #### 3 2132-04, , CBCA, 69251-9, CMP, THYR, 00475-2, PINR #### [facility] ([id number]) [address], [address] [place] [address] CMPon 08-31-2023 Albumin [Mass/Vol] 4.1 g/dL Normal 3.3-5.0 [facility] Comment on above: Performed By: #### 2 012638 #### [facility] [address] [place] [address] Albumin/Globulin (S) [Mass conc ratio] 1.3 Normal 1.1-2.2 [facility] Comment on above: Performed By: #### 2 454966 #### [facility] [address] [place] [address] ALP [Catalytic activity/Vol] 98 Int._Unit/L Normal 21-98 [facility] Comment on above: Performed By: #### 2 556776 #### [facility] [address] [place] [address] ALT No additional P-5'-P [Catalytic activity/Vol] 14 Int._Unit/L Normal 6-46 [facility] Comment on above: Performed By: #### 2 599638 #### [facility] [address] [place] [address] Anion gap [Moles/Vol] 9 mmol/L Normal 6-16 [facility] Comment on above: Performed By: #### 2 202844 #### [facility] [address] [place] [address] AST [Catalytic activity/Vol] 15 Int._Unit/L Normal 5-43 [facility] Comment on above: Performed By: #### 2 618369 #### [facility] [address] [place] [address] Bilirubin [Mass/Vol] 0.5 mg/dL Normal 0.0-1.1 [facility] Comment on above: Performed By: #### 2 104492 #### [facility] [address] [place] [address] Calcium [Mass/Vol] 8.7 mg/dL Low 8.9-11.1 [facility] Comment on above: Performed By: #### 2 894035 #### [facility] [address] [place] [address] Chloride [Moles/Vol] 109 mmol/L Normal 101-111 [facility] Comment on above: Performed By: #### 2 362996 #### [facility] [address] [place] [address] CO2 [Moles/Vol] 28 mmol/L Normal 21-31 [facility] Comment on above: Performed By: #### 2 278572 #### [facility] [address] [place] [address] Creatinine [Mass/Vol] 1.1 mg/dL Normal 0.5-1.3 [facility] Comment on above: Performed By: #### 2 094392 #### [facility] [address] [place] [address] Globulin (S) [Mass/Vol] 3.1 g/dL Normal 1.4-4.0 [facility] Comment on above: Performed By: #### 2 910171 #### [facility] [address] [place] [address] Glucose [Mass/Vol] 64 mg/dL Normal 55-199 [facility] Comment on above: Performed By: #### 2 316687 #### [facility] [address] [place] [address] Potassium [Moles/Vol] 4.1 mmol/L Normal 3.5-5.3 [facility] Comment on above: Performed By: #### 2 086598 #### [facility] [address] [place] [address] Protein [Mass/Vol] 7.2 g/dL Normal 6.0-7.8 [facility] Comment on above: Performed By: #### 2 845713 #### [facility] [address] [place] [address] Sodium [Moles/Vol] 142 mmol/L Normal 135-145 [facility] Comment on above: Performed By: #### 2 243030 #### [facility] [address] [place] [address] Urea nitrogen [Mass/Vol] 20 mg/dL Normal 5-21 [facility] Comment on above: Performed By: #### 2 448039 #### [facility] [address] [place] [address] Urea nitrogen/Creatinine [Mass ratio] 18 No Units Normal 10-20 [facility] Comment on above: Performed By: #### 2 843285 #### [facility] [address] [place] [address] Physician Orderon 08-31-2023 Physician Order [id number]. [id number] Normal [facility] T4 & TSHon 08-31-2023 TSH Qn 1.97 m[IU]/L Normal 0.34-5.60 [facility] Comment on above: Performed By: #### 1 [id number] #### [facility] [address] [place] [address] T4 [Mass/Vol] 11.4 microgram/dL High 4.6-9.1 [facility] Comment on above: Performed By: #### 1 0265196 #### [facility] [address] [place] [address] Vit B12on 08-31-2023 Cobalamin (Vitamin B12) [Mass/Vol] 231 pg/mL Normal 50-1500 [facility] Comment on above: Performed By: #### 2 620419 #### [facility] [address] [place] [address] Vitamin D 25 Hydroxyon 08-30 25-hydroxyvitamin D3 [Mass/Vol] 48.1 ng/mL Normal 30.0-100.0 [facility] Comment on above: Performed By: #### 5 [id number] #### [facility] [address] [place] [address] eGFRon 08-31-2023 eGFR 54 mL/min/1.73 m2 Low >=59 [facility] Comment on above: Order Comment: Order added by Discern Expert. Performed By: #### 1 [id number] #### [facility] [address] [place] [address] CBC w/ Auto Diffon 4 Basophil Absolute 0.0 E9/L Normal 0.0-0.2 [facility] Comment on above: Performed By: #### 1 7350044, 7941192, 98092478, 1411082, 9511821 #### [facility] [address] [place] [address] Basophils/100 WBC (Bld) 0.2 % Normal 0.0-2.0 [facility] Comment on above: Performed By: #### 1 4792196, 3388610, 36839524, 5370214, 3424578 #### [facility] [address] [place] [address] Eos Absolute 0.7 E9/L High 0.0-0.5 [facility] Comment on above: Performed By: #### 1 0784859, 9853547, 29094321, 8938386, 3905778 #### [facility] [address] [place] [address] Eosinophils/100 WBC (Bld) 6.8 % Normal 0.0-8.0 [facility] Comment on above: Performed By: #### 1 2306695, 2839327, 42412200, 2402100, 4907928 #### [facility] [address] [place] [address] Erythrocyte distribution width (RBC) [Ratio] 13.8 % Normal 10.9-14.2 [facility] Comment on above: Performed By: #### 1 7991583, 8140052, 33296496, 1244793, 6459352 #### [facility] [address] [place] [address] Hematocrit (Bld) [Volume fraction] 39.0 % Normal 34.0-46.0 [facility] Comment on above: Performed By: #### 1 3708643, 0960405, 72911599, 7027657, 3975476 #### [facility] [address] [place] [address] Hemoglobin (Bld) [Mass/Vol] 12.4 g/dL Normal 12.0-16.0 [facility] Comment on above: Performed By: #### 1 0291070, 7058376, 22463799, 5124335, 8428331 #### [facility] [address] [place] [address] Lymph Absolute 2.5 E9/L Normal 1.0-4.0 [facility] Comment on above: Performed By: #### 1 3608311, 3109397, 29504555, 0479071, 4928809 #### [facility] [address] [place] [address] Lymphocytes/100 WBC (Bld) 25.9 % Normal 14.0-50.0 [facility] Comment on above: Performed By: #### 1 4478475, 9398014, 47332613, 6605876, 5699959 #### [facility] [address] [place] [address] MCH (RBC) [Entitic mass] 28.2 pg Normal 27.0-34.0 [facility] Comment on above: Performed By: #### 1 9950119, 6551835, 57508110, 2422745, 3953986 #### [facility] [address] [place] [address] MCHC (RBC) [Mass/Vol] 31.5 g/dL Normal 31.4-36.0 [facility] Comment on above: Performed By: #### 1 4077658, 5496283, 06112227, 1369730, 3412195 #### [facility] [address] [place] [address] MCV (RBC) [Entitic vol] 89.3 fL Normal 80.0-100.0 [facility] Comment on above: Performed By: #### 1 5331775, 9042890, 60131811, 3612211, 5344389 #### [facility] [address] [place] [address] Carl[place] Absolute 0.6 E9/L Normal 0.2-1.0 [facility] Comment on above: Performed By: #### 1 2796157, 2337484, 59601949, 2641014, 7132210 #### [facility] [address] [place] [address] Monocytes/100 WBC (Bld) 6.2 % Normal 4.0-14.0 [facility] Comment on above: Performed By: #### 1 1162431, 7896826, 11604454, 8423667, 2194878 #### [facility] [address] [place] [address] Neutro Absolute 6.0 E9/L Normal 2.0-7.5 [facility] Comment on above: Performed By: #### 1 5905797, 0925569, 45684138, 1107827, 2712861 #### [facility] [address] [place] [address] Neutro Auto 60.9 % Normal 36.0-75.0 [facility] Comment on above: Performed By: #### 1 5374346, 3611457, 67847760, 3278504, 0487134 #### [facility] [address] [place] [address] Platelet 288.0 E9/L Normal 150.0-500.0 [facility] Comment on above: Performed By: #### 1 3185545, 6778800, 64603923, 7641410, 5667062 #### [facility] [address] [place] [address] Platelet mean volume (Bld) [Entitic vol] 7.8 fL Normal 6.4-10.8 [facility] Comment on above: Performed By: #### 1 7114569, 1247024, 02214755, 7681470, 1586363 #### [facility] [address] [place] [address] RBC 4.4 E12/L Normal 4.3-5.9 [facility] Comment on above: Performed By: #### 1 5233989, 3562792, 85631247, 8770321, 6842670 #### [facility] [address] [place] [address] WBC 9.8 E9/L Normal 4.0-11.0 [facility] Comment on above: Performed By: #### 1 2777575, 8316444, 29792017, 0708841, 4569987 #### [facility] [address] [place] [address] CHEMISTRYOrdered By: SYSTEM SYSTEM on 05-31-2023 Albumin [...] 05-31-2023 Albumin [Mass/Vol] 4.0 g/dL Normal 3.3-5.0 [facility] Comment on above: Performed By: #### 1 0016231, 3045270, 60460483, 9009498, 8797507 #### [facility] [address] [place] [address] Albumin/Globulin [Mass ratio] 1.0 {ratio} Low 1.1-2.2 [facility] Comment on above: Performed By: #### 1 3680387, 6227829, 68498417, 4080703, 5113546 #### [facility] [address] [place] [address] Alk Phos 90 Int._Unit/L Normal 21-98 [facility] Comment on above: Performed By: #### 1 1273720, 1393188, 54361388, 4544518, 2404873 #### [facility] [address] [place] [address] ALT 13 Int._Unit/L Normal 6-46 [facility] Comment on above: Performed By: #### 1 5422329, 3725474, 49349467, 2452796, 0551448 #### [facility] [address] [place] [address] Anion gap [Moles/Vol] 12 mmol/L Normal 6-16 [facility] Comment on above: Performed By: #### 1 9942887, 4734592, 27162666, 5290282, 9823161 #### [facility] [address] [place] [address] AST 13 Int._Unit/L Normal 5-43 [facility] Comment on above: Performed By: #### 1 3970009, 5289154, 39962508, 2997931, 1946585 #### [facility] [address] [place] [address] Bili Total 0.4 mg/dL Normal 0.0-1.1 [facility] Comment on above: Performed By: #### 1 7688888, 2579694, 65183687, 7084008, 3148388 #### [facility] [address] [place] [address] BUN/Creat Ratio 22 No Units High 10-20 [facility] Comment on above: Performed By: #### 1 8584458, 2053070, 35932926, 5865632, 5644075 #### [facility] [address] [place] [address] Calcium [Mass/Vol] 9.6 mg/dL Normal 8.9-11.1 [facility] Comment on above: Performed By: #### 1 6051886, 9121756, 94611863, 3851410, 1718169 #### [facility] [address] [place] [address] Chloride [Moles/Vol] 105 mmol/L Normal 101-111 [facility] Comment on above: Performed By: #### 1 0121808, 9907487, 55776711, 1841404, 4377202 #### [facility] [address] [place] [address] CO2 [Moles/Vol] 29 mmol/L Normal 21-31 [facility] Comment on above: Performed By: #### 1 5097272, 7028185, 39483076, 4046381, 3350759 #### [facility] [address] [place] [address] Creatinine [Mass/Vol] 0.9 mg/dL Normal 0.5-1.3 [facility] Comment on above: Performed By: #### 1 6609428, 2117179, 84920700, 1741785, 3323455 #### [facility] [address] [place] [address] Globulin (S) [Mass/Vol] 3.9 g/dL Normal 1.4-4.0 [facility] Comment on above: Performed By: #### 1 1105310, 7408770, 12876986, 2243972, 8279788 #### [facility] [address] [place] [address] Glucose [Mass/Vol] 72 mg/dL Normal 55-199 [facility] Comment on above: Performed By: #### 1 6299618, 7871648, 21984793, 2287376, 2758856 #### [facility] [address] [place] [address] Potassium [Moles/Vol] 4.1 mmol/L Normal 3.5-5.3 [facility] Comment on above: Performed By: #### 1 [id number], [id number], [id number], [id number], [id number] #### [facility] [address] [place] [address] Protein [Mass/Vol] 7.9 g/dL High 6.0-7.8 [facility] Comment on above: Performed By: #### 1 [id number], [id number], [id number], [id number], [id number] #### [facility] [address] [place] [address] Sodium [Moles/Vol] 142 mmol/L Normal 135-145 [facility] Comment on above: Performed By: #### 1 [id number], [id number], [id number], [id number], [id number] #### [facility] [address] [place] [address] Urea nitrogen [Mass/Vol] 20 mg/dL Normal 5-21 [facility] Comment on above: Performed By: #### 1 [id number], [id number], [id number], [id number], [id number] #### [facility] [address] [place] [address] Consent for Treatmenton 05-11 Consent for Treatment [id number] 0TIFF Normal [facility] HEMATOLOGYOrdered By: SYSTEM SYSTEM on 05-31-2023 [...] Normal 80.0 - 100.0 fL Remisol Heme [place] Absolute 0.6 E9/L Normal 0.2 - 1.0 [...] Remisol Heme Physician Orderon 05-31-2023 Physician Order [id number]#1.0 0TIFF Normal [facility] T4 & TSHon 05-31-2023 TSH Qn 0.45 m[IU]/L Normal 0.34-5.60 [facility] Comment on above: Performed By: #### 1 [id number], [id number], [id number], [id number], [id number] #### [facility] [address] [place] [address] T4 11.0 microgram/dL High 4.6-9.1 [facility] Comment on above: Performed By: #### 1 [id number], [id number], [id number], [id number], [id number] #### [facility] [address] [place] [address] Vit B12on 05-31-2023 Cobalamin (Vitamin B12) [Mass/Vol] 242 pg/mL Normal 50-1500 [facility] Comment on above: Performed By: #### 1 [id number], [id number], [id number], [id number], [id number] #### [facility] [address] [place] [address] eGFRon 05-31-2023 eGFR 68 mL/min/1.73 m2 Normal >=59 [facility] Comment on above: Order Comment: Order added by Discern Expert. Performed By: #### 1 [id number], [id number], [id number], [id number], [id number] #### [facility] [address] [place] [address] 1,25 Dihydroxy Vit D Calcitr olon 02-14-2022 1,25 Dihydroxy Vit D Calcitrol 19.4 pg/mL Low 24.8-81.5 [facility] [place] Comment on above: Order Comment: Reaso n for Exam Vitamin D deficiency Result Comment: Perf ormed at: - [facility] [id number] Tax Services Manager: Favian Colby MD, Phone: [phone] PERFORMED BY: [facility] [address] [place] [address] PATHOLOGIST MACHINE HAMPER MAKER HEMANT CHÁVEZ M.D. Performed By: #### G LULS #### Point of Care testing , Complete Blood Count Auto Di ffon 02-14-2022 Basophils (Bld) [#/Vol] 0.0 10*3/uL Normal 0.0-0.2 [facility] [place] Comment on above: Order Comment: Reaso n for Exam Essential hypertension Result Comment: PERF ORMED BY: [facility] [address] [place] [address] PATHOLOGIST MACHINE HAMPER MAKER HEMANT CHÁVEZ M.D. Performed By: #### G LULS #### Point of Care testing , Basophils/100 WBC (Bld) 0.2 % Normal . [facility] [place] Comment on above: Order Comment: Reaso n for Exam Essential hypertension Performed By: #### G LULS #### Point of Care testing , Eosinophils (Bld) [#/Vol] 0.6 10*3/uL High 0.0-0.45 [facility] [place] Comment on above: Order Comment: Reaso n for Exam Essential hypertension Performed By: #### G LULS #### Point of Care testing , Eosinophils/100 WBC (Bld) 5.7 % Normal . [facility] [place] Comment on above: Order Comment: Reaso n for Exam Essential hypertension Performed By: #### G LULS #### Point of Care testing , Erythrocyte distribution width (RBC) [Ratio] 14.7 % Normal 11.9-15.3 [facility] [place] Comment on above: Order Comment: Reaso n for Exam Essential hypertension Performed By: #### G LULS #### Point of Care testing , Hematocrit (Bld) [Volume fraction] 38.2 % Normal 34.0-46.4 [facility] [place] Comment on above: Order Comment: Reaso n for Exam Essential hypertension Performed By: #### G LULS #### Point of Care testing , Hemoglobin (Bld) [Mass/Vol] 12.4 g/dL Normal 11.8-15.4 [facility] [place] Comment on above: Order Comment: Reaso n for Exam Essential hypertension Performed By: #### G LULS #### Point of Care testing , Lymphocytes (Bld) [#/Vol] 2.9 10*3/uL Normal 1.00-4.8 [facility] [place] Comment on above: Order Comment: Reaso n for Exam Essential hypertension Performed By: #### G LULS #### Point of Care testing , Lymphocytes/100 WBC (Bld) 28.8 % Normal . [facility] [place] Comment on above: Order Comment: Reaso n for Exam Essential hypertension Performed By: #### G LULS #### Point of Care testing , MCH (RBC) [Entitic mass] 28.0 pg Normal 24.7-34.3 [facility] [place] Comment on above: Order Comment: Reaso n for Exam Essential hypertension Performed By: #### G LULS #### Point of Care testing , MCV (RBC) [Entitic vol] 86.6 fL Normal 80-100 [facility] [place] Comment on above: Order Comment: Reaso n for Exam Essential hypertension Performed By: #### G LULS #### Point of Care testing , Mean Corpuscular HGB Conc 32.4 g/dL Normal 32.0-35.0 [facility] [place] Comment on above: Order Comment: Reaso n for Exam Essential hypertension Performed By: #### G LULS #### Point of Care testing , Monocytes (Bld) [#/Vol] 0.5 10*3/uL Normal 0.0-0.8 [facility] [place] Comment on above: Order Comment: Reaso n for Exam Essential hypertension Performed By: #### G LULS #### Point of Care testing , Monocytes/100 WBC (Bld) 5.1 % Normal . [facility] [place] Comment on above: Order Comment: Reaso n for Exam Essential hypertension Performed By: #### G LULS #### Point of Care testing , Neutrophils (Bld) [#/Vol] 6.1 10*3/uL Normal 1.8-7.7 [facility] [place] Comment on above: Order Comment: Reaso n for Exam Essential hypertension Performed By: #### G LULS #### Point of Care testing , Neutrophils/100 WBC (Bld) 60.2 % Normal . [facility] [place] Comment on above: Order Comment: Reaso n for Exam Essential hypertension Performed By: #### G LULS #### Point of Care testing , Nucleated RBC/100 WBC (Bld) [Ratio] 0.1 % Normal 0-0.5 [facility] [place] Comment on above: Order Comment: Reaso n for Exam Essential hypertension Performed By: #### G LULS #### Point of Care testing , Platelet mean volume (Bld) [Entitic vol] 7.8 fL Normal 6.3-10.7 [facility] [place] Comment on above: Order Comment: Reaso n for Exam Essential hypertension Performed By: #### G LULS #### Point of Care testing , Platelets (Bld) [#/Vol] 330 10*3/uL Normal 150-450 [facility] [place] Comment on above: Order Comment: Reaso n for Exam Essential hypertension Performed By: #### G LULS #### Point of Care testing , RBC (Bld) [#/Vol] 4.41 10*6/uL Normal 3.60-5.00 [facility] Comment on above: Order Comment: Reaso n for Exam Essential hypertension Performed By: #### G LULS #### Point of Care testing , WBC (Bld) [#/Vol] 10.1 10*3/uL Normal 4.5-11.0 [facility] Comment on above: Order Comment: Reaso n for Exam Essential hypertension Performed By: #### G LULS #### Point of Care testing , Comprehensive Metabolic Pane eric 02-14-2022 Albumin [Mass/Vol] 3.8 g/dL Normal 3.2-5.5 [facility] Comment on above: Order Comment: PT FA STED 12 HRS Reason for Exam Essential hypertension Reason for Exam Vitamin B12 deficiency Reason for Exam Hypothyroidism, unspecified type Performed By: #### G LULS #### Point of Care testing , Albumin/Globulin [Mass ratio] 1.0 {ratio} Normal [facility] Comment on above: Order Comment: PT FA STED 12 HRS Reason for Exam Essential hypertension Reason for Exam Vitamin B12 deficiency Reason for Exam Hypothyroidism, unspecified type Performed By: #### G LULS #### Point of Care testing , ALP [Catalytic activity/Vol] 109 U/L High 32-92 [facility] [place] Comment on above: Order Comment: PT FA STED 12 HRS Reason for Exam Essential hypertension Reason for Exam Vitamin B12 deficiency Reason for Exam Hypothyroidism, unspecified type Performed By: #### G LULS #### Point of Care testing , ALT [Catalytic activity/Vol] 14 U/L Normal 10-60 [facility] [place] Comment on above: Order Comment: PT FA STED 12 HRS Reason for Exam Essential hypertension Reason for Exam Vitamin B12 deficiency Reason for Exam Hypothyroidism, unspecified type Performed By: #### G LULS #### Point of Care testing , Anion gap [Moles/Vol] 12.1 mmol/L Normal 6.0-15.0 [facility] [place] Comment on above: Order Comment: PT FA STED 12 HRS Reason for Exam Essential hypertension Reason for Exam Vitamin B12 deficiency Reason for Exam Hypothyroidism, unspecified type Performed By: #### G LULS #### Point of Care testing , AST [Catalytic activity/Vol] 15 U/L Normal 10-42 [facility] Comment on above: Order Comment: PT FA STED 12 HRS Reason for Exam Essential hypertension Reason for Exam Vitamin B12 deficiency Reason for Exam Hypothyroidism, unspecified type Performed By: #### G LULS #### Point of Care testing , Bilirubin [Mass/Vol] 0.7 mg/dL Normal 0.3-1.2 [facility] Comment on above: Order Comment: PT FA STED 12 HRS Reason for Exam Essential hypertension Reason for Exam Vitamin B12 deficiency Reason for Exam Hypothyroidism, unspecified type Performed By: #### G LULS #### Point of Care testing , Calcium [Mass/Vol] 9.3 mg/dL Normal 8.2-10.2 [facility] Comment on above: Order Comment: PT FA STED 12 HRS Reason for Exam Essential hypertension Reason for Exam Vitamin B12 deficiency Reason for Exam Hypothyroidism, unspecified type Performed By: #### G LULS #### Point of Care testing , Chloride [Moles/Vol] 103 mmol/L Normal 95-114 [facility] Comment on above: Order Comment: PT FA STED 12 HRS Reason for Exam Essential hypertension Reason for Exam Vitamin B12 deficiency Reason for Exam Hypothyroidism, unspecified type Performed By: #### G LULS #### Point of Care testing , CO2 [Moles/Vol] 28.0 mmol/L Normal 22.0-30.0 [facility] Comment on above: Order Comment: PT FA STED 12 HRS Reason for Exam Essential hypertension Reason for Exam Vitamin B12 deficiency Reason for Exam Hypothyroidism, unspecified type Performed By: #### G LULS #### Point of Care testing , Creatinine [Mass/Vol] 0.94 mg/dL Normal 0.44-1.03 [facility] Comment on above: Order Comment: PT FA STED 12 HRS Reason for Exam Essential hypertension Reason for Exam Vitamin B12 deficiency Reason for Exam Hypothyroidism, unspecified type Performed By: #### G LULS #### Point of Care testing , Estimated GFR ( Roseline > 60 [facility] Comment on above: Order Comment: [...] testing , Estimated GFR (Non- Am 59 [facility] Comment on above: Order Comment: PT FA STED 12 HRS Reason for Exam Essential hypertension Reason for Exam Vitamin B12 deficiency Reason for Exam Hypothyroidism, unspecified type Performed By: #### G LULS #### Point of Care testing , Globulin (S) [Mass/Vol] 3.7 g/dL [facility] Comment on above: Order Comment: PT FA STED 12 HRS Reason for Exam Essential hypertension Reason for Exam Vitamin B12 deficiency Reason for Exam Hypothyroidism, unspecified type Performed By: #### G LULS #### Point of Care testing , Glucose [Mass/Vol] 103 mg/dL High 70-100 [facility] Comment on above: Order Comment: PT FA STED 12 HRS Reason for Exam Essential hypertension Reason for Exam Vitamin B12 deficiency Reason for Exam Hypothyroidism, unspecified type Result Comment: [place] Glucose Reference Range is dependent on time and content of last meal. Glucose of more than 200 mg/dL in a nonstressed, ambulatory subject supports the diagnosis of Diabetes Mellitus. ADA recommended reference range Performed By: #### G LULS #### Point of Care testing , Potassium [Moles/Vol] 4.1 mmol/L Normal 3.5-5.1 [facility] Comment on above: Order Comment: PT FA STED 12 HRS Reason for Exam Essential hypertension Reason for Exam Vitamin B12 deficiency Reason for Exam Hypothyroidism, unspecified type Performed By: #### G LULS #### Point of Care testing , Protein [Mass/Vol] 7.5 g/dL Normal 6.1-7.9 [facility] Comment on above: Order Comment: PT FA STED 12 HRS Reason for Exam Essential hypertension Reason for Exam Vitamin B12 deficiency Reason for Exam Hypothyroidism, unspecified type Performed By: #### G LULS #### Point of Care testing , Sodium [Moles/Vol] 139 mmol/L Normal 136-146 [facility] Comment on above: Order Comment: PT FA STED 12 HRS Reason for Exam Essential hypertension Reason for Exam Vitamin B12 deficiency Reason for Exam Hypothyroidism, unspecified type Performed By: #### G LULS #### Point of Care testing , Urea nitrogen [Mass/Vol] 19 mg/dL Normal 9-23 [facility] Comment on above: Order Comment: PT FA STED 12 HRS Reason for Exam Essential hypertension Reason for Exam Vitamin B12 deficiency Reason for Exam Hypothyroidism, unspecified type Performed By: #### G LULS #### Point of Care testing , Lipid Panelon 02-14-2022 Cholesterol [Mass/Vol] 134 mg/dL Low 140-200 [facility] [place] Comment on above: Order Comment: PT FA [...] in HDL [Mass/Vol] 44 mg/dL Normal 35-85 [facility] Comment on above: Order Comment: PT FA [...] HDL [Mass ratio] 3.0 {ratio} Normal <5.0 [facility] Comment on above: Order Comment: PT FA STED 12 HRS Reason for Exam Essential hypertension Reason for Exam Vitamin B12 deficiency Reason for Exam Hypothyroidism, unspecified type Performed By: #### G LULS #### Point of Care testing , LDL Cholesterol,Calculat ed 73 mg/dL Normal 0-100 [facility] Comment on above: Order Comment: PT FA [...] , Triglyceride w/Reflex 85 mg/dL Normal 35-149 [facility] Comment on above: Order Comment: PT FA [...] testing , VLDL CHOLESTEROL 17 mg/dL Normal [facility] Comment on above: Order Comment: PT FA STED 12 HRS Reason for Exam Essential hypertension Reason for Exam Vitamin B12 deficiency Reason for Exam Hypothyroidism, unspecified type Performed By: #### G LULS #### Point of Care testing , Thyroid Stimulating Hormoneo n 02-14-2022 TSH Qn 1.04 m[IU]/L Normal 0.45-5.33 [facility] Comment on above: Order Comment: PT FA STED 12 HRS Reason for Exam Essential hypertension Reason for Exam Vitamin B12 deficiency Reason for Exam Hypothyroidism, unspecified type Result Comment: PERF ORMED BY: [address] [place] [address] PATHOLOGIST MACHINE HAMPER MAKER HEMANT CHÁVEZ M.D. Performed By: #### G LULS #### Point of Care testing , Thyroxine (T4) Totalon 02-14 T4 [Mass/Vol] 13.17 ug/dL High 5.39-11.82 [facility] Comment on above: Order Comment: PT FA STED 12 HRS Reason for Exam Essential hypertension Reason for Exam Vitamin B12 deficiency Reason for Exam Hypothyroidism, unspecified type Performed By: #### G LULS #### Point of Care testing , Vitamin B12on 02-14-2022 Cobalamin (Vitamin B12) [Mass/Vol] 292 pg/mL Normal 180-914 [facility] Comment on above: Order Comment: PT FA STED 12 HRS Reason for Exam Essential hypertension Reason for Exam Vitamin B12 deficiency Reason for Exam Hypothyroidism, unspecified type Performed By: #### G LULS #### Point of Care testing , Basic Metabolic Panelon 05-3 Calcium [Mass/Vol] 8.2 mg/dL Normal 8.2-10.2 [facility] Comment on above: Performed By: #### C BC, BMP #### [facility] [address] [place] [address] [place] Chloride [Moles/Vol] 103 mmol/L Normal 95-114 [facility] Comment on above: Performed By: #### C BC, BMP #### [facility] [address] [place] [id number] [place] CO2 [Moles/Vol] 27.2 mmol/L Normal 22.0-30.0 [facility] Comment on above: Performed By: #### C BC, BMP #### [facility] [address] [place] [address] [place] Creatinine [Mass/Vol] 1.13 mg/dL High 0.44-1.03 [facility] Comment on above: Performed By: #### C BC, BMP #### [facility] [address] [place] [address] [place] Creatinine Clr Calc Pharmacy 59.74 [facility] Comment on above: Result Comment: PERF ORMED BY: [place] [address] PATHOLOGIST MACHINE HAMPER MAKER HEMANT CHÁVEZ M.D. Performed By: #### C BC, BMP #### [address] Estimated GFR ( Roseline 58 [facility] Comment on above: Result Comment: GFR estimated reference range: According to KDOQI guidelines, <60 ml/min/1.73m2 is sufficient to diagnose a patient with chronic kidney disease. Performed By: #### C BC, BMP #### [address] Estimated GFR (Non- Am 48 [facility] Comment on above: Performed By: #### C BC, BMP #### [address] Glucose [Mass/Vol] 116 mg/dL High 70-100 [facility] Comment on above: Result Comment: [place] om Glucose Reference Range is dependent on time and content of last meal. Glucose of more than 200 mg/dL in a nonstressed, ambulatory subject supports the diagnosis of Diabetes Mellitus. ADA recommended reference range Performed By: #### C BC, BMP #### [place] [address] [place] Potassium [Moles/Vol] 3.2 mmol/L Low 3.5-5.1 [facility] Comment on above: Performed By: #### C BC, BMP #### [place] [address] [place] Sodium [Moles/Vol] 140 mmol/L Normal 136-146 [facility] Comment on above: Performed By: #### C BC, BMP #### [address] Urea nitrogen [Mass/Vol] 9 mg/dL Normal 9-23 [facility] Comment on above: Performed By: #### C BC, BMP #### [facility] [address] Complete Blood Count Auto Di ffon 09-06-2021 Basophils (Bld) [#/Vol] 0.0 10*3/uL Normal 0.0-0.2 [facility] Comment on above: Result Comment: PERF ORMED BY: [place] [address] PATHOLOGIST MACHINE HAMPER MAKER HEMANT CHÁVEZ M.D. Performed By: #### C BC, BMP #### [facility] [address] Basophils/100 WBC (Bld) 0.1 % Normal . [facility] Comment on above: Performed By: #### C BC, BMP #### [facility] [address] Eosinophils (Bld) [#/Vol] 0.2 10*3/uL Normal 0.0-0.45 [facility] Comment on above: Performed By: #### C BC, BMP #### [place] [address] [place] Eosinophils/100 WBC (Bld) 2.3 % Normal . [facility] Comment on above: Performed By: #### C BC, BMP #### [address] Erythrocyte distribution width (RBC) [Ratio] 16.2 % High 11.9-15.3 [facility] Comment on above: Performed By: #### C BC, BMP #### [address] Hematocrit (Bld) [Volume fraction] 30.8 % Low 34.0-46.4 [facility] Comment on above: Performed By: #### C BC, BMP #### [facility] [address] Hemoglobin (Bld) [Mass/Vol] 9.8 g/dL Low 11.8-15.4 [facility] Comment on above: Performed By: #### C BC, BMP #### [facility] [address] Lymphocytes (Bld) [#/Vol] 1.8 10*3/uL Normal 1.00-4.8 [facility] Comment on above: Performed By: #### C BC, BMP #### [facility] [address] Lymphocytes/100 WBC (Bld) 18.5 % Normal . [facility] Comment on above: Performed By: #### C BC, BMP #### [facility] [address] MCH (RBC) [Entitic mass] 27.6 pg Normal 24.7-34.3 [facility] Comment on above: Performed By: #### C BC, BMP #### [address] MCV (RBC) [Entitic vol] 86.1 fL Normal 80-100 [facility] Comment on above: Performed By: #### C BC, BMP #### [address] Mean Corpuscular HGB Conc 32.0 g/dL Normal 32.0-35.0 [facility] Comment on above: Performed By: #### C BC, BMP #### [address] Monocytes (Bld) [#/Vol] 0.7 10*3/uL Normal 0.0-0.8 [facility] Comment on above: Performed By: #### C BC, BMP #### [place] [address] [place] Monocytes/100 WBC (Bld) 6.9 % Normal . [facility] Comment on above: Performed By: #### C BC, BMP #### [address] Neutrophils (Bld) [#/Vol] 7.2 10*3/uL Normal 1.8-7.7 [facility] Comment on above: Performed By: #### C BC, BMP #### [facility] [address] Neutrophils/100 WBC (Bld) 72.2 % Normal . [facility] Comment on above: Performed By: #### C BC, BMP #### [facility] [address] Nucleated RBC/100 WBC (Bld) [Ratio] 0.0 % Normal 0-0.5 [facility] Comment on above: Performed By: #### C BC, BMP #### [address] Platelet mean volume (Bld) [Entitic vol] 8.3 fL Normal 6.3-10.7 [facility] Comment on above: Performed By: #### C MARIA ELENA, BMP #### [address] Platelets (Bld) [#/Vol] 258 10*3/uL Normal 150-450 [facility] Comment on above: Performed By: #### C MARIA ELENA, BMP #### [place] [address] [place] RBC (Bld) [#/Vol] 3.57 10*6/uL Low 3.60-5.00 [facility] Comment on above: Performed By: #### C BC, BMP #### [place] [address] [place] WBC (Bld) [#/Vol] 9.9 10*3/uL Normal 4.5-11.0 [facility] Comment on above: Performed By: #### C BC, BMP #### [address] Glucose Poct Glucometerson 0 09-06-2021 Commemt1 Glu2: Cleaned Meter Normal [facility] Comment on above: Result Comment: PERF ORMED BY: [place] [address] PATHOLOGIST MACHINE HAMPER MAKER HEMANT CHÁVEZ M.D. Performed By: #### C BC, BMP #### [address] [place] [address] [place] Glucose [Mass/Vol] 126 mg/dL Normal [facility] Comment on above: Result Comment: [place] om Glucose Reference Range is dependent on time and content of last meal. Glucose of more than 200 mg/dL in a nonstressed, ambulatory subject supports the diagnosis of Diabetes Mellitus. Performed By: #### C BC, BMP #### [facility] [address] Commemt1 Glu2: Cleaned Meter Normal [facility] Comment on above: Result Comment: PERF ORMED BY: [place] [address] PATHOLOGIST MACHINE HAMPER MAKER HEMANT CHÁVEZ M.D. Performed By: #### G LULS #### Point of Care testing , Glucose [Mass/Vol] 175 mg/dL Normal [facility] Comment on above: Result Comment: [place] Glucose Reference Range is dependent on time and content of last meal. Glucose of more than 200 mg/dL in a nonstressed, ambulatory subject supports the diagnosis of Diabetes Mellitus. Performed By: #### G LULS #### Point of Care testing , Glucose [Mass/Vol] 103 mg/dL Normal [facility] Comment on above: Result Comment: [place] om Glucose Reference Range is dependent on time and content of last meal. Glucose of more than 200 mg/dL in a nonstressed, ambulatory subject supports the diagnosis of Diabetes Mellitus. PERFORMED BY: [place] [address] PATHOLOGIST MACHINE HAMPER MAKER HEMANT CHÁVEZ M.D. Performed By: #### C BC, LACTIC, HS TROP, HEPATIC, BMP, LIPASE, BHOB, T4F, TSH3 #### [facility] [address] [place] [address] [place] Glucose Poct Glucometerson 0 09-05-2021 Glucose [Mass/Vol] 150 mg/dL Normal [facility] Comment on above: Result Comment: [facility] Glucose Reference Range is dependent on time and content of last meal. Glucose of more than 200 mg/dL in a nonstressed, ambulatory subject supports the diagnosis of Diabetes Mellitus. PERFORMED BY: [facility] [address] [place] [address] PATHOLOGIST MACHINE HAMPER MAKER HEMANT CHÁVEZ M.D. Performed By: #### G LULS #### Point of Care testing , Glucose [Mass/Vol] 154 mg/dL Normal [facility] Comment on above: Result Comment: [facility] Glucose Reference Range is dependent on time and content of last meal. Glucose of more than 200 mg/dL in a nonstressed, ambulatory subject supports the diagnosis of Diabetes Mellitus. PERFORMED BY: [place] [address] PATHOLOGIST MACHINE HAMPER MAKER HEMANT CHÁVEZ M.D. Performed By: #### G LULS #### Point of Care testing , Glucose [Mass/Vol] 145 mg/dL Normal [facility] Comment on above: Result Comment: [facility] Glucose Reference Range is dependent on time and content of last meal. Glucose of more than 200 mg/dL in a nonstressed, ambulatory subject supports the diagnosis of Diabetes Mellitus. PERFORMED BY: [place] [address] PATHOLOGIST MACHINE HAMPER MAKER HEMANT CHÁVEZ M.D. Performed By: #### G LULS #### Point of Care testing , Glucose [Mass/Vol] 167 mg/dL Normal [facility] Comment on above: Result Comment: [facility] Glucose Reference Range is dependent on time and content of last meal. Glucose of more than 200 mg/dL in a nonstressed, ambulatory subject supports the diagnosis of Diabetes Mellitus. PERFORMED BY: [place] [address] PATHOLOGIST MACHINE HAMPER MAKER HEMANT CHÁVEZ M.D. Performed By: #### C BC, LACTIC, HS TROP, HEPATIC, BMP, LIPASE, BHOB, T4F, TSH3 #### [place] [id number] [facility] Basic Metabolic Panelon 05-2 Calcium [Mass/Vol] 8.2 mg/dL Normal 8.2-10.2 [facility] Comment on above: Performed By: #### C BC, BMP #### [facility] [address] [place] [address] [place] Chloride [Moles/Vol] 110 mmol/L Normal 95-114 [facility] Comment on above: Performed By: #### C BC, BMP #### [facility] [address] CO2 [Moles/Vol] 25.2 mmol/L Normal 22.0-30.0 [facility] Comment on above: Performed By: #### C BC, BMP #### [facility] [address] Creatinine [Mass/Vol] 1.23 mg/dL High 0.44-1.03 [facility] [place] Comment on above: Performed By: #### C BC, BMP #### [address] Creatinine Clr Calc Pharmacy 54.94 [facility] Comment on above: Result Comment: PERF ORMED BY: [place] [address] PATHOLOGIST MACHINE HAMPER MAKER HEMANT CHÁVEZ M.D. Performed By: #### C BC, BMP #### [address] Estimated GFR ( Roseline 52 [facility] Comment on above: Result Comment: GFR estimated reference range: According to KDOQI guidelines, <60 ml/min/1.73m2 is sufficient to diagnose a patient with chronic kidney disease. Performed By: #### C BC, BMP #### [place] [address] [place] Estimated GFR (Non- Am 43 [facility] Comment on above: Performed By: #### C BC, BMP #### [address] Glucose [Mass/Vol] 136 mg/dL High 70-100 [facility] Comment on above: Result Comment: [facility] Glucose Reference Range is dependent on time and content of last meal. Glucose of more than 200 mg/dL in a nonstressed, ambulatory subject supports the diagnosis of Diabetes Mellitus. ADA recommended reference range Performed By: #### C BC, BMP #### [address] Potassium [Moles/Vol] 3.3 mmol/L Low 3.5-5.1 [facility] [place] Comment on above: Performed By: #### C BC, BMP #### [address] Sodium [Moles/Vol] 143 mmol/L Normal 136-146 [facility] Comment on above: Performed By: #### C BC, BMP #### [address] Urea nitrogen [Mass/Vol] 17 mg/dL Normal 9-23 [facility] [place] Comment on above: Performed By: #### C BC, BMP #### [address] Complete Blood Count Auto Di ffon 09-04-2021 Basophils (Bld) [#/Vol] 0.0 10*3/uL Normal 0.0-0.2 [facility] Comment on above: Result Comment: PERF ORMED BY: [place] [address] PATHOLOGIST MACHINE HAMPER MAKER HEMANT CHÁVEZ M.D. Performed By: #### C BC, BMP #### [place] [address] [place] Basophils/100 WBC (Bld) 0.1 % Normal . [facility] Comment on above: Performed By: #### C BC, BMP #### [place] [address] [place] Eosinophils (Bld) [#/Vol] 0.3 10*3/uL Normal 0.0-0.45 [facility] [place] Comment on above: Performed By: #### C BC, BMP #### [place] [address] [place] Eosinophils/100 WBC (Bld) 3.3 % Normal . [facility] Comment on above: Performed By: #### C BC, BMP #### [address] Erythrocyte distribution width (RBC) [Ratio] 16.4 % High 11.9-15.3 [facility] Comment on above: Performed By: #### C BC, BMP #### [address] Hematocrit (Bld) [Volume fraction] 30.1 % Low 34.0-46.4 [facility] Comment on above: Performed By: #### C BC, BMP #### [address] Hemoglobin (Bld) [Mass/Vol] 9.5 g/dL Low 11.8-15.4 [facility] [place] Comment on above: Performed By: #### C BC, BMP #### [address] Lymphocytes (Bld) [#/Vol] 1.1 10*3/uL Normal 1.00-4.8 [facility] Comment on above: Performed By: #### C BC, BMP #### [address] Lymphocytes/100 WBC (Bld) 13.8 % Normal . [facility] Comment on above: Performed By: #### C BC, BMP #### [address] MCH (RBC) [Entitic mass] 27.7 pg Normal 24.7-34.3 [facility] [place] Comment on above: Performed By: #### C BC, BMP #### [address] MCV (RBC) [Entitic vol] 87.3 fL Normal 80-100 [facility] [place] Comment on above: Performed By: #### C BC, BMP #### [address] Mean Corpuscular HGB Conc 31.7 g/dL Low 32.0-35.0 [facility] [place] Comment on above: Performed By: #### C BC, BMP #### [address] [place] [address] [place] Monocytes (Bld) [#/Vol] 0.6 10*3/uL Normal 0.0-0.8 [facility] [place] Comment on above: Performed By: #### C BC, BMP #### [facility] [address] [place] [address] [place] Monocytes/100 WBC (Bld) 7.8 % Normal . [facility] [place] Comment on above: Performed By: #### C BC, BMP #### [facility] [address] [place] [address] [place] Neutrophils (Bld) [#/Vol] 6.0 10*3/uL Normal 1.8-7.7 [facility] [place] Comment on above: Performed By: #### C MARIA ELENA, BMP #### [place] [address] [place] Neutrophils/100 WBC (Bld) 75.0 % Normal . [facility] [place] Comment on above: Performed By: #### C MARIA ELENA, BMP #### [facility] [address] [place] [address] [place] Nucleated RBC/100 WBC (Bld) [Ratio] 0.1 % Normal 0-0.5 [facility] [place] Comment on above: Performed By: #### C MARIA ELENA, BMP #### [place] [address] [place] Platelet mean volume (Bld) [Entitic vol] 8.0 fL Normal 6.3-10.7 [facility] [place] Comment on above: Performed By: #### C BC, BMP #### [facility] [address] [place] [address] [place] Platelets (Bld) [#/Vol] 236 10*3/uL Normal 150-450 [facility] [place] Comment on above: Performed By: #### C BC, BMP #### [facility] [address] [place] [address] [place] RBC (Bld) [#/Vol] 3.45 10*6/uL Low 3.60-5.00 [facility] Comment on above: Performed By: #### C BC, BMP #### [address] [place] [address] [place] WBC (Bld) [#/Vol] 8.0 10*3/uL Normal 4.5-11.0 [facility] Comment on above: Performed By: #### C BC, BMP #### [address] Glucose Poct Glucometerson 0 09-04-2021 Glucose [Mass/Vol] 131 mg/dL Normal [facility] Comment on above: Result Comment: [facility] Glucose Reference Range is dependent on time and content of last meal. Glucose of more than 200 mg/dL in a nonstressed, ambulatory subject supports the diagnosis of Diabetes Mellitus. PERFORMED BY: [place] [address] PATHOLOGIST MACHINE HAMPER MAKER HEMANT CHÁVEZ M.D. Performed By: #### C BC, LACTIC, HS TROP, HEPATIC, BMP, LIPASE, BHOB, T4F, TSH3 #### [address] Commemt1 Glu2: Cleaned Meter [facility] Comment on above: Result Comment: PERF ORMED BY: [place] [address] PATHOLOGIST MACHINE HAMPER MAKER HEMANT CHÁVEZ M.D. Performed By: #### G LULS #### Point of Care testing , Glucose [Mass/Vol] 170 mg/dL Normal [facility] Comment on above: Result Comment: [facility] Glucose Reference Range is dependent on time and content of last meal. Glucose of more than 200 mg/dL in a nonstressed, ambulatory subject supports the diagnosis of Diabetes Mellitus. Performed By: #### G LULS #### Point of Care testing , Commemt1 Glu2: Cleaned Meter Normal [facility] Comment on above: Result Comment: PERF ORMED BY: [place] [address] PATHOLOGIST MACHINE HAMPER MAKER HEMANT CHÁVEZ M.D. Performed By: #### G LULS #### Point of Care testing , Glucose [Mass/Vol] 141 mg/dL Normal [facility] Comment on above: Result Comment: [facility] Glucose Reference Range is dependent on time and content of last meal. Glucose of more than 200 mg/dL in a nonstressed, ambulatory subject supports the diagnosis of Diabetes Mellitus. Performed By: #### G LULS #### Point of Care testing , Commemt1 Glu2: Cleaned Meter Normal [facility] Comment on above: Result Comment: PERF ORMED BY: [address] [place] [address] PATHOLOGIST MACHINE HAMPER MAKER HEMANT CHÁVEZ M.D. Performed By: #### G LULS #### Point of Care testing , Glucose [Mass/Vol] 114 mg/dL Normal [facility] Comment on above: Result Comment: [facility] Glucose Reference Range is dependent on time and content of last meal. Glucose of more than 200 mg/dL in a nonstressed, ambulatory subject supports the diagnosis of Diabetes Mellitus. Performed By: #### G LULS #### Point of Care testing , Basic Metabolic Panelon 05-2 Calcium [Mass/Vol] 8.4 mg/dL Normal 8.2-10.2 [facility] Comment on above: Performed By: #### G LULS #### Point of Care testing , Chloride [Moles/Vol] 111 mmol/L Normal 95-114 [facility] Comment on above: Performed By: #### G LULS #### Point of Care testing , CO2 [Moles/Vol] 26.2 mmol/L Normal 22.0-30.0 [facility] Comment on above: Performed By: #### G LULS #### Point of Care testing , Creatinine [Mass/Vol] 1.37 mg/dL High 0.44-1.03 [facility] Comment on above: Performed By: #### G LULS #### Point of Care testing , Creatinine Clr Calc Pharmacy 48.64 [facility] Comment on above: Result Comment: PERF ORMED BY: [facility] [address] [place] [address] PATHOLOGIST MACHINE HAMPER MAKER HEMANT CHÁVEZ M.D. Performed By: #### G LULS #### Point of Care testing , Estimated GFR ( Roseline 46 Normal [facility] Comment on above: Result Comment: GFR estimated reference range: According to KDOQI guidelines, <60 ml/min/1.73m2 is sufficient to diagnose a patient with chronic kidney disease. Performed By: #### G LULS #### Point of Care testing , Estimated GFR (Non- Am 38 Normal [facility] Comment on above: Performed By: #### G LULS #### Point of Care testing , Glucose [Mass/Vol] 145 mg/dL High 70-100 [facility] Comment on above: Result Comment: [facility] Glucose Reference Range is dependent on time and content of last meal. Glucose of more than 200 mg/dL in a nonstressed, ambulatory subject supports the diagnosis of Diabetes Mellitus. ADA recommended reference range Performed By: #### G LULS #### Point of Care testing , Potassium [Moles/Vol] 3.2 mmol/L Low 3.5-5.1 [facility] Comment on above: Performed By: #### G LULS #### Point of Care testing , Sodium [Moles/Vol] 146 mmol/L Normal 136-146 [facility] Comment on above: Performed By: #### G LULS #### Point of Care testing , Urea nitrogen [Mass/Vol] 23 mg/dL Normal 9-23 [facility] Comment on above: Performed By: #### G LULS #### Point of Care testing , Complete Blood Count Auto Di ffon 09-03-2021 Basophils (Bld) [#/Vol] 0.0 10*3/uL Normal 0.0-0.2 [facility] Comment on above: Result Comment: PERF ORMED BY: [address] [address] PATHOLOGIST MACHINE HAMPER MAKER HEMANT CHÁVEZ M.D. Performed By: #### C BC, LACTIC, HS TROP, HEPATIC, BMP, LIPASE, BHOB, T4F, TSH3 #### [address] [address] [place] Basophils/100 WBC (Bld) 0.1 % Normal . [facility] Comment on above: Performed By: #### C BC, LACTIC, HS TROP, HEPATIC, BMP, LIPASE, BHOB, T4F, TSH3 #### [address] Eosinophils (Bld) [#/Vol] 0.3 10*3/uL Normal 0.0-0.45 [facility] Comment on above: Performed By: #### C BC, LACTIC, HS TROP, HEPATIC, BMP, LIPASE, BHOB, T4F, TSH3 #### [address] Eosinophils/100 WBC (Bld) 3.6 % Normal . [facility] Comment on above: Performed By: #### C BC, LACTIC, HS TROP, HEPATIC, BMP, LIPASE, BHOB, T4F, TSH3 #### [address] Erythrocyte distribution width (RBC) [Ratio] 16.2 % High 11.9-15.3 [facility] Comment on above: Performed By: #### C BC, LACTIC, HS TROP, HEPATIC, BMP, LIPASE, BHOB, T4F, TSH3 #### [address] Hematocrit (Bld) [Volume fraction] 31.9 % Low 34.0-46.4 [facility] Comment on above: Performed By: #### C BC, LACTIC, HS TROP, HEPATIC, BMP, LIPASE, BHOB, T4F, TSH3 #### [address] Hemoglobin (Bld) [Mass/Vol] 10.2 g/dL Low 11.8-15.4 [facility] Comment on above: Performed By: #### C BC, LACTIC, HS TROP, HEPATIC, BMP, LIPASE, BHOB, T4F, TSH3 #### [address] Lymphocytes (Bld) [#/Vol] 1.0 10*3/uL Normal 1.00-4.8 [facility] Comment on above: Performed By: #### C BC, LACTIC, HS TROP, HEPATIC, BMP, LIPASE, BHOB, T4F, TSH3 #### [address] Lymphocytes/100 WBC (Bld) 10.4 % Normal . [facility] Comment on above: Performed By: #### C BC, LACTIC, HS TROP, HEPATIC, BMP, LIPASE, BHOB, T4F, TSH3 #### [address] MCH (RBC) [Entitic mass] 28.0 pg Normal 24.7-34.3 [facility] Comment on above: Performed By: #### C BC, LACTIC, HS TROP, HEPATIC, BMP, LIPASE, BHOB, T4F, TSH3 #### [address] MCV (RBC) [Entitic vol] 87.6 fL Normal 80-100 [facility] Comment on above: Performed By: #### C BC, LACTIC, HS TROP, HEPATIC, BMP, LIPASE, BHOB, T4F, TSH3 #### [address] Mean Corpuscular HGB Conc 31.9 g/dL Low 32.0-35.0 [facility] Comment on above: Performed By: #### C BC, LACTIC, HS TROP, HEPATIC, BMP, LIPASE, BHOB, T4F, TSH3 #### [address] Monocytes (Bld) [#/Vol] 0.7 10*3/uL Normal 0.0-0.8 [facility] Comment on above: Performed By: #### C BC, LACTIC, HS TROP, HEPATIC, BMP, LIPASE, BHOB, T4F, TSH3 #### [address] Monocytes/100 WBC (Bld) 7.5 % Normal . [facility] Comment on above: Performed By: #### C BC, LACTIC, HS TROP, HEPATIC, BMP, LIPASE, BHOB, T4F, TSH3 #### [address] Neutrophils (Bld) [#/Vol] 7.2 10*3/uL Normal 1.8-7.7 [facility] Comment on above: Performed By: #### C BC, LACTIC, HS TROP, HEPATIC, BMP, LIPASE, BHOB, T4F, TSH3 #### [address] Neutrophils/100 WBC (Bld) 78.4 % Normal . [facility] Comment on above: Performed By: #### C BC, LACTIC, HS TROP, HEPATIC, BMP, LIPASE, BHOB, T4F, TSH3 #### [address] Nucleated RBC/100 WBC (Bld) [Ratio] 0.0 % Normal 0-0.5 [facility] Comment on above: Performed By: #### C BC, LACTIC, HS TROP, HEPATIC, BMP, LIPASE, BHOB, T4F, TSH3 #### [address] Platelet mean volume (Bld) [Entitic vol] 8.2 fL Normal 6.3-10.7 [facility] Comment on above: Performed By: #### C BC, LACTIC, HS TROP, HEPATIC, BMP, LIPASE, BHOB, T4F, TSH3 #### [address] Platelets (Bld) [#/Vol] 273 10*3/uL Normal 150-450 [facility] Comment on above: Performed By: #### C BC, LACTIC, HS TROP, HEPATIC, BMP, LIPASE, BHOB, T4F, TSH3 #### [address] RBC (Bld) [#/Vol] 3.64 10*6/uL Normal 3.60-5.00 [facility] Comment on above: Performed By: #### C BC, LACTIC, HS TROP, HEPATIC, BMP, LIPASE, BHOB, T4F, TSH3 #### [facility] [address] WBC (Bld) [#/Vol] 9.1 10*3/uL Normal 4.5-11.0 [facility] Comment on above: Performed By: #### C BC, LACTIC, HS TROP, HEPATIC, BMP, LIPASE, BHOB, T4F, TSH3 #### [facility] [address] [place] [address] [place] Glucose Poct Glucometerson 0 09-03-2021 Commemt1 Glu2: Cleaned Meter [facility] Comment on above: Result Comment: PERF ORMED BY: [place] [address] PATHOLOGIST MACHINE HAMPER MAKER HEMANT CHÁVEZ M.D. Performed By: #### G LULS #### Point of Care testing , Glucose [Mass/Vol] 152 mg/dL Normal [facility] Comment on above: Result Comment: [facility] Glucose Reference Range is dependent on time and content of last meal. Glucose of more than 200 mg/dL in a nonstressed, ambulatory subject supports the diagnosis of Diabetes Mellitus. Performed By: #### G LULS #### Point of Care testing , Commemt1 Glu2: Cleaned Meter [facility] Comment on above: Result Comment: PERF ORMED BY: [place] [address] PATHOLOGIST MACHINE HAMPER MAKER HEMANT CHÁVEZ M.D. Performed By: #### G LULS #### Point of Care testing , Glucose [Mass/Vol] 154 mg/dL Normal [facility] Comment on above: Result Comment: [facility] Glucose Reference Range is dependent on time and content of last meal. Glucose of more than 200 mg/dL in a nonstressed, ambulatory subject supports the diagnosis of Diabetes Mellitus. Performed By: #### G LULS #### Point of Care testing , Commemt1 Glu2: Cleaned Meter [facility] Comment on above: Result Comment: PERF ORMED BY: [place] [address] PATHOLOGIST MACHINE HAMPER MAKER HEMANT CHÁVEZ M.D. Performed By: #### G LULS #### Point of Care testing , Glucose [Mass/Vol] 128 mg/dL Normal [facility] Comment on above: Result Comment: [facility] Glucose Reference Range is dependent on time and content of last meal. Glucose of more than 200 mg/dL in a nonstressed, ambulatory subject supports the diagnosis of Diabetes Mellitus. Performed By: #### G LULS #### Point of Care testing , Glucose [Mass/Vol] 141 mg/dL Normal [facility] Comment on above: Result Comment: [facility] Glucose Reference Range is dependent on time and content of last meal. Glucose of more than 200 mg/dL in a nonstressed, ambulatory subject supports the diagnosis of Diabetes Mellitus. PERFORMED BY: [facility] [address] [place] [address] PATHOLOGIST MACHINE HAMPER MAKER HEMANT CHÁVEZ M.D. Performed By: #### G LULS #### Point of Care testing , A1C with Estimated Average Stan [facility] 09-02-2021 Glucose [Mass/Vol] 126 mg/dL Normal [facility] Comment on above: Result Comment: PERF ORMED BY: [facility] [address] [place] [address] PATHOLOGIST MACHINE HAMPER MAKER HEMANT CHÁVEZ M.D. Performed By: #### G LULS #### Point of Care testing , HbA1c (Bld) [Mass fraction] 6.0 % High 4.3-5.6 [facility] Comment on above: Result Comment: Incr eased risk for diabetes: 5.7 - 6.4 diabetes: >6.4 glycemic control for adults with diabetes: <7.0 Performed By: #### G LULS #### Point of Care testing , Basic Metabolic Panelon 08-08 Calcium [Mass/Vol] 8.8 mg/dL Normal 8.2-10.2 [facility] Comment on above: Performed By: #### G LULS #### Point of Care testing , Chloride [Moles/Vol] 113 mmol/L Normal 95-114 [facility] Comment on above: Performed By: #### G LULS #### Point of Care testing , CO2 [Moles/Vol] 20.6 mmol/L Low 22.0-30.0 [facility] Comment on above: Performed By: #### G LULS #### Point of Care testing , Creatinine [Mass/Vol] 1.26 mg/dL High 0.44-1.03 [facility] Comment on above: Performed By: #### G LULS #### Point of Care testing , Creatinine Clr Calc Pharmacy 51.25 [facility] Comment on above: Performed By: #### G LULS #### Point of Care testing , Estimated GFR ( Roseline 51 [facility] Comment on above: Result Comment: GFR estimated reference range: According to KDOQI guidelines, <60 ml/min/1.73m2 is sufficient to diagnose a patient with chronic kidney disease. Performed By: #### G LULS #### Point of Care testing , Estimated GFR (Non- Am 42 [facility] Comment on above: Performed By: #### G LULS #### Point of Care testing , Glucose [Mass/Vol] 112 mg/dL High 70-100 [facility] Comment on above: Result Comment: [facility] om Glucose Reference Range is dependent on time and content of last meal. Glucose of more than 200 mg/dL in a nonstressed, ambulatory subject supports the diagnosis of Diabetes Mellitus. ADA recommended reference range Performed By: #### G LULS #### Point of Care testing , Potassium [Moles/Vol] 3.7 mmol/L Normal 3.5-5.1 [facility] Comment on above: Performed By: #### G LULS #### Point of Care testing , Sodium [Moles/Vol] 150 mmol/L High 136-146 [facility] Comment on above: Performed By: #### G LULS #### Point of Care testing , Urea nitrogen [Mass/Vol] 31 mg/dL High 9-23 [facility] Comment on above: Performed By: #### G LULS #### Point of Care testing , Complete Blood Count Auto Di ffon 05-27-2022 Basophils (Bld) [#/Vol] 0.0 10*3/uL Normal 0.0-0.2 [facility] Comment on above: Result Comment: PERF ORMED BY: [facility] [place] [address] PATHOLOGIST MACHINE HAMPER MAKER HEMANT CHÁVEZ M.D. Performed By: #### G LULS #### Point of Care testing , Basophils/100 WBC (Bld) 0.1 % Normal . [facility] Comment on above: Performed By: #### G LULS #### Point of Care testing , Eosinophils (Bld) [#/Vol] 0.2 10*3/uL Normal 0.0-0.45 [facility] Comment on above: Performed By: #### G LULS #### Point of Care testing , Eosinophils/100 WBC (Bld) 1.5 % Normal . [facility] Comment on above: Performed By: #### G LULS #### Point of Care testing , Erythrocyte distribution width (RBC) [Ratio] 16.3 % High 11.9-15.3 [facility] Comment on above: Performed By: #### G LULS #### Point of Care testing , Hematocrit (Bld) [Volume fraction] 39.3 % Normal 34.0-46.4 [facility] Comment on above: Performed By: #### G LULS #### Point of Care testing , Hemoglobin (Bld) [Mass/Vol] 12.2 g/dL Normal 11.8-15.4 [facility] Comment on above: Performed By: #### G LULS #### Point of Care testing , Lymphocytes (Bld) [#/Vol] 1.1 10*3/uL Normal 1.00-4.8 [facility] Comment on above: Performed By: #### G LULS #### Point of Care testing , Lymphocytes/100 WBC (Bld) 9.0 % Normal . [facility] Comment on above: Performed By: #### G LULS #### Point of Care testing , MCH (RBC) [Entitic mass] 27.5 pg Normal 24.7-34.3 [facility] Comment on above: Performed By: #### Stan BANGURA #### Point of Care testing , MCV (RBC) [Entitic vol] 88.2 fL Normal 80-100 [facility] Comment on above: Performed By: #### Stan BANGURA #### Point of Care testing , Mean Corpuscular HGB Conc 31.2 g/dL Low 32.0-35.0 [facility] Comment on above: Performed By: #### Stan HUBBARDLS #### Point of Care testing , Monocytes (Bld) [#/Vol] 1.0 10*3/uL High 0.0-0.8 [facility] Comment on above: Performed By: #### Stan BANGURA #### Point of Care testing , Monocytes/100 WBC (Bld) 8.0 % Normal . [facility] Comment on above: Performed By: #### Stan BANGURA #### Point of Care testing , Neutrophils (Bld) [#/Vol] 9.9 10*3/uL High 1.8-7.7 [facility] Comment on above: Performed By: #### Stan BANGURA #### Point of Care testing , Neutrophils/100 WBC (Bld) 81.4 % Normal . [facility] Comment on above: Performed By: #### Stan BANGURA #### Point of Care testing , Nucleated RBC/100 WBC (Bld) [Ratio] 0.1 % Normal 0-0.5 [facility] Comment on above: Performed By: #### Stan HUBBARDLS #### Point of Care testing , Platelet mean volume (Bld) [Entitic vol] 8.0 fL Normal 6.3-10.7 [facility] Comment on above: Performed By: #### Stan BANGURA #### Point of Care testing , Platelets (Bld) [#/Vol] 291 10*3/uL Normal 150-450 [facility] Comment on above: Performed By: #### Stan BANGURA #### Point of Care testing , RBC (Bld) [#/Vol] 4.45 10*6/uL Normal 3.60-5.00 [facility] Comment on above: Performed By: #### G LULS #### Point of Care testing , WBC (Bld) [#/Vol] 12.1 10*3/uL High 4.5-11.0 [facility] Comment on above: Performed By: #### G LULS #### Point of Care testing , Glucose Poct Glucometerson 0 09-02-2021 Glucose [Mass/Vol] 124 mg/dL Normal [facility] Comment on above: Result Comment: [place] om Glucose Reference Range is dependent on time and content of last meal. Glucose of more than 200 mg/dL in a nonstressed, ambulatory subject supports the diagnosis of Diabetes Mellitus. PERFORMED BY: [address] [place] [id number] PATHOLOGIST MACHINE HAMPER MAKER HEMANT CHÁVEZ M.D. Performed By: #### G LULS #### Point of Care testing , Glucose [Mass/Vol] 130 mg/dL Normal [facility] Comment on above: Result Comment: [facility] Glucose Reference Range is dependent on time and content of last meal. Glucose of more than 200 mg/dL in a nonstressed, ambulatory subject supports the diagnosis of Diabetes Mellitus. PERFORMED BY: [address] [place] [address] PATHOLOGIST MACHINE HAMPER MAKER HEMANT CHÁVEZ M.D. Performed By: #### G LULS #### Point of Care testing , Commemt1 Glu2: Cleaned Meter Normal [facility] Comment on above: Result Comment: PERF ORMED BY: [facility] [address] [place] [address] PATHOLOGIST MACHINE HAMPER MAKER HEMANT CHÁVEZ M.D. Performed By: #### G LULS #### Point of Care testing , Glucose [Mass/Vol] 131 mg/dL Normal [facility] Comment on above: Result Comment: [place] [facility] om Glucose Reference Range is dependent on time and content of last meal. Glucose of more than 200 mg/dL in a nonstressed, ambulatory subject supports the diagnosis of Diabetes Mellitus. Performed By: #### G LULS #### Point of Care testing , Commemt1 Glu2: Cleaned Meter Normal [facility] Comment on above: Result Comment: PERF ORMED BY: [place] [address] PATHOLOGIST MACHINE HAMPER MAKER HEMANT CHÁVEZ M.D. Performed By: #### C BC, BMP #### [address] Glucose [Mass/Vol] 107 mg/dL Normal [facility] Comment on above: Result Comment: [facility] Glucose Reference Range is dependent on time and content of last meal. Glucose of more than 200 mg/dL in a nonstressed, ambulatory subject supports the diagnosis of Diabetes Mellitus. Performed By: #### C BC, BMP #### [address] Thyroid Stimulating Hormoneo n 09-02-2021 TSH Qn 7.55 m[IU]/L High 0.45-5.33 [facility] Comment on above: Performed By: #### G LULS #### Point of Care testing , Troponin I High Sensitivityo 09-02-2021 Troponin I High Sensitivity 31 pg/mL High 0-15 [facility] Comment on above: Result Comment: PERF ORMED BY: [place] [address] PATHOLOGIST MACHINE HAMPER MA[employer] HEMANT CHÁVEZ M.D. Performed By: #### G LULS #### Point of Care testing , Vit. B12/Folate Profileon Cobalamin (Vitamin B12) [Mass/Vol] 187 pg/mL Normal 180-914 [facility] Comment on above: Performed By: #### G LULS #### Point of Care testing , Folate 9.3 ng/mL Normal >5.9 [facility] Comment on above: Result Comment: Marjorie te reference range: >5.9 ng/ml The WHO technical consultation on folate and vitamin b12 deficiencies has determined that folate concentrations less than 4 ng/ml are considered deficient. Performed By: #### G LULS #### Point of Care testing , Vitamin D 25 Hydroxy Totalon 09-02-2021 Vitamin D 25 Hydroxy Total 16.6 ng/mL Low 30-100 [facility] Comment on above: Result Comment: MIHAELA MIN D STATUS 25(OH)VITAMIN D RANGE (ng/mL) Deficient <20 Insufficient 20 to <30 Sufficient 30 to 100 Reference: Jayce MF,Arnoldo NC, Hossein DOMINIQUE, et al. Evaluation,treatment, and prevention of vitamin D deficiency; an Endocrine Society clinical practice guideline. JCEM. 2010; 96(7):1911-30. PERFORMED BY: [facility] [address] [place] [address] PATHOLOGIST MACHINE HAMPER MAKER HEMANT CHÁVEZ M.D. Performed By: #### G LULS #### Point of Care testing , Basic Metabolic Panelon 08-08 Calcium [Mass/Vol] 8.8 mg/dL Normal 8.2-10.2 [facility] Comment on above: Performed By: #### G LULS #### Point of Care testing , Chloride [Moles/Vol] 106 mmol/L Normal 95-114 [facility] Comment on above: Performed By: #### G LULS #### Point of Care testing , CO2 [Moles/Vol] 23.9 mmol/L Normal 22.0-30.0 [facility] Comment on above: Performed By: #### G LULS #### Point of Care testing , Creatinine [Mass/Vol] 1.62 mg/dL High 0.44-1.03 [facility] Comment on above: Performed By: #### G LULS #### Point of Care testing , Creatinine Clr Calc Pharmacy 39.63 [facility] Comment on above: Performed By: #### G LULS #### Point of Care testing , Estimated GFR ( Roseline 38 [facility] Comment on above: Result Comment: GFR estimated reference range: According to KDOQI guidelines, <60 ml/min/1.73m2 is sufficient to diagnose a patient with chronic kidney disease. Performed By: #### G LULS #### Point of Care testing , Estimated GFR (Non- Am 32 Normal [facility] Comment on above: Performed By: #### G LULS #### Point of Care testing , Glucose [Mass/Vol] 158 mg/dL High 70-100 [facility] Comment on above: Result Comment: [facility] Glucose Reference Range is dependent on time and content of last meal. Glucose of more than 200 mg/dL in a nonstressed, ambulatory subject supports the diagnosis of Diabetes Mellitus. ADA recommended reference range Performed By: #### G LULS #### Point of Care testing , Potassium [Moles/Vol] 3.1 mmol/L Low 3.5-5.1 [facility] Comment on above: Performed By: #### G LULS #### Point of Care testing , Sodium [Moles/Vol] 146 mmol/L Normal 136-146 [facility] Comment on above: Performed By: #### G LULS #### Point of Care testing , Urea nitrogen [Mass/Vol] 41 mg/dL High 9-23 [facility] Comment on above: Performed By: #### G LULS #### Point of Care testing , Beta Hydroxybuterateon 09-01 Beta Hydroxybuterate 2.73 mmol/L High 0.05-0.27 [facility] Comment on above: Performed By: #### [...] developed and its performance characteristic determined by [employer] and validated at [facility]. This test has not been FDA cleared [...] for SARS Antigen by JW PERFORMED BY: [address] [place] [address] PATHOLOGIST MACHINE HAMPER MAKER HEMANT CHÁVEZ M.D. Normal [facility] Comment on above: Performed By: #### G LULS #### Point of Care testing , COVID-19 [facility] 09-01-2021 SARS-CoV-2 (COVID-19) RNA NAILA+probe Ql (Unsp spec) Negative Normal Negative [facility] Comment on above: Order Comment: Healt hcare Worker?: Y Result Comment: Testing for SARS-CoV-2 by RT-PCR This test was developed and its performance characteristics determined by [employer] ([employer]) and validated at the [facility]. This test has not been FDA cleared [...] is terminated or revoked sooner. PERFORMED BY: [place] [id number] PATHOLOGIST MACHINE HAMPER MAKER HEMANT CHÁVEZ M.D. Performed By: #### G LULS #### Point of Care testing , CT abdomen pelvis w conon CT abdomen pelvis w con [facility] [place] [address] [place], [place] [id number] CT Scan Report Signed Patient: Jeanmarie Garcia MR#: [id number] 757 : 1950 Acct:[id number] Age/Sex: 71 / F ADM Date: 09/01/21 Loc: ER Room: Type: [facility] ER Attending Dr: Ordering Provider: [...] Gerson White M.D.09/01/2021 2:24 PM Dictation Location: [facility]-13 Transcribed By: [facility] 09/01/21 1424 Dictated By: Gerson White DO 09/01/21 1413 Signed By: 09/01/21 142 [facility] CT head/brain wo conon 09-01 CT head/brain wo con [facility] [place] [address] [place] [address] CT Scan Report Signed Patient: Jeanmarie Garcia MR#: [id number] 757 : 1950 Acct:[id number] Age/Sex: 71 / F ADM Date: 09/01/21 Loc: Room: [address] [place] [address] Type: ADM IN Attending Dr: Elizabet Wilson [...] Perez Jr., M.D.09/01/2021 4:50 PM Dictation Location: [place] [address] Transcribed By: [facility] 09/01/211649 Dictated By: Kana Perez Jr, MD 09/01/211644 Signed By: 09/01/211649 Normal [facility] Complete Blood Count Auto Di ffon 09-01-2021 Basophils (Bld) [#/Vol] 0.0 10*3/uL Normal 0.0-0.2 [facility] Comment on above: Result Comment: PERF ORMED BY: [place] [address] PATHOLOGIST MACHINE HAMPER MAKER HEMANT CHÁVEZ M.D. Performed By: #### C BC, LACTIC, HS TROP, HEPATIC, BMP, LIPASE, BHOB, T4F, TSH3 #### [address] Basophils/100 WBC (Bld) 0.3 % Normal . [facility] Comment on above: Performed By: #### C BC, LACTIC, HS TROP, HEPATIC, BMP, LIPASE, BHOB, T4F, TSH3 #### [address] Eosinophils (Bld) [#/Vol] 0.0 10*3/uL Normal 0.0-0.45 [facility] Comment on above: Performed By: #### C BC, LACTIC, HS TROP, HEPATIC, BMP, LIPASE, BHOB, T4F, TSH3 #### [address] Eosinophils/100 WBC (Bld) 0.1 % Normal . [facility] Comment on above: Performed By: #### C BC, LACTIC, HS TROP, HEPATIC, BMP, LIPASE, BHOB, T4F, TSH3 #### [address] Erythrocyte distribution width (RBC) [Ratio] 16.1 % High 11.9-15.3 [facility] Comment on above: Performed By: #### C BC, LACTIC, HS TROP, HEPATIC, BMP, LIPASE, BHOB, T4F, TSH3 #### [place] [address] [place] Hematocrit (Bld) [Volume fraction] 37.3 % Normal 34.0-46.4 [facility] Comment on above: Performed By: #### C BC, LACTIC, HS TROP, HEPATIC, BMP, LIPASE, BHOB, T4F, TSH3 #### [facility] [address] Hemoglobin (Bld) [Mass/Vol] 11.7 g/dL Low 11.8-15.4 [facility] Comment on above: Performed By: #### C BC, LACTIC, HS TROP, HEPATIC, BMP, LIPASE, BHOB, T4F, TSH3 #### [address] Lymphocytes (Bld) [#/Vol] 1.5 10*3/uL Normal 1.00-4.8 [facility] Comment on above: Performed By: #### C BC, LACTIC, HS TROP, HEPATIC, BMP, LIPASE, BHOB, T4F, TSH3 #### [address] Lymphocytes/100 WBC (Bld) 9.1 % Normal . [facility] Comment on above: Performed By: #### C BC, LACTIC, HS TROP, HEPATIC, BMP, LIPASE, BHOB, T4F, TSH3 #### [address] MCH (RBC) [Entitic mass] 27.4 pg Normal 24.7-34.3 [facility] Comment on above: Performed By: #### C BC, LACTIC, HS TROP, HEPATIC, BMP, LIPASE, BHOB, T4F, TSH3 #### [address] MCV (RBC) [Entitic vol] 87.3 fL Normal 80-100 [facility] Comment on above: Performed By: #### C BC, LACTIC, HS TROP, HEPATIC, BMP, LIPASE, BHOB, T4F, TSH3 #### [address] Mean Corpuscular HGB Conc 31.3 g/dL Low 32.0-35.0 [facility] Comment on above: Performed By: #### C BC, LACTIC, HS TROP, HEPATIC, BMP, LIPASE, BHOB, T4F, TSH3 #### [facility] [address] Monocytes (Bld) [#/Vol] 1.4 10*3/uL High 0.0-0.8 [facility] Comment on above: Performed By: #### C BC, LACTIC, HS TROP, HEPATIC, BMP, LIPASE, BHOB, T4F, TSH3 #### [facility] [address] Monocytes/100 WBC (Bld) 8.6 % Normal . [facility] Comment on above: Performed By: #### C BC, LACTIC, HS TROP, HEPATIC, BMP, LIPASE, BHOB, T4F, TSH3 #### [address] Neutrophils (Bld) [#/Vol] 13.2 10*3/uL High 1.8-7.7 [facility] Comment on above: Performed By: #### C BC, LACTIC, HS TROP, HEPATIC, BMP, LIPASE, BHOB, T4F, TSH3 #### [address] Neutrophils/100 WBC (Bld) 81.9 % Normal . [facility] Comment on above: Performed By: #### C BC, LACTIC, HS TROP, HEPATIC, BMP, LIPASE, BHOB, T4F, TSH3 #### [address] Nucleated RBC/100 WBC (Bld) [Ratio] 0.0 % Normal 0-0.5 [facility] Comment on above: Performed By: #### C BC, LACTIC, HS TROP, HEPATIC, BMP, LIPASE, BHOB, T4F, TSH3 #### [address] Platelet mean volume (Bld) [Entitic vol] 7.9 fL Normal 6.3-10.7 [facility] Comment on above: Performed By: #### C BC, LACTIC, HS TROP, HEPATIC, BMP, LIPASE, BHOB, T4F, TSH3 #### [address] Platelets (Bld) [#/Vol] 317 10*3/uL Normal 150-450 [facility] Comment on above: Performed By: #### C BC, LACTIC, HS TROP, HEPATIC, BMP, LIPASE, BHOB, T4F, TSH3 #### [address] RBC (Bld) [#/Vol] 4.27 10*6/uL Normal 3.60-5.00 [facility] Comment on above: Performed By: #### C BC, LACTIC, HS TROP, HEPATIC, BMP, LIPASE, BHOB, T4F, TSH3 #### [address] WBC (Bld) [#/Vol] 16.1 10*3/uL High 4.5-11.0 [facility] Comment on above: Performed By: #### C BC, LACTIC, HS TROP, HEPATIC, BMP, LIPASE, BHOB, T4F, TSH3 #### [address] Dipstick and Microscopicon 0 09-01-2021 Bacteria,Urine None Seen Normal None Seen [facility] Comment on above: Order Comment: Name Collection Type:: Straight Catheter Performed By: #### C BC, BMP #### [address] Hyaline Casts,Urine 20-49 High 0-1 [facility] Comment on above: Order Comment: Name Collection Type:: Straight Catheter Performed By: #### C BC, BMP #### [address] Other Casts,Urine None Seen Normal None Seen [facility] Comment on above: Order Comment: Name Collection Type:: Straight Catheter Performed By: #### C BC, BMP #### [address] RBC,Urine 3-4 Normal 0-4 [facility] Comment on above: Order Comment: Name Collection Type:: Straight Catheter Performed By: #### C BC, BMP #### [facility] [address] [place] [address] [place] Renal Epithelial Cells,Urine None Seen Normal 0-1 [facility] Comment on above: Order Comment: Name Collection Type:: Straight Catheter Performed By: #### C BC, BMP #### [facility] [address] [place] [address] [place] Squamous Epithelial Cell,Urine 20-30 High 0-2 [facility] Comment on above: Order Comment: Name Collection Type:: Straight Catheter Performed By: #### C BC, BMP #### [facility] [address] [place] [address] [place] WBC,Urine 10-19 High 0-4 [facility] Comment on above: Order Comment: Name Collection Type:: Straight Catheter Performed By: #### C BC, BMP #### [facility] [address] [place] [address] Yeast,Urine None Seen Normal None Seen [facility] Comment on above: Order Comment: Name Collection Type:: Straight Catheter Result Comment: PERF ORMED BY: [place] [address] PATHOLOGIST MACHINE HAMPER MAKER HEMANT CHÁVEZ M.D. Performed By: #### C BC, BMP #### [address] ECG 12 lead ECGon 09-01-2021 ECG 12 lead ECG [facility] [place] [address] [place] [address] Electrocardiograph Report Signed Patient: Jeanmarie Garcia MR#: [id number] 757 : 1950 Acct:[id number] Age/Sex: 71 / F ADM Date: 09/01/21 Loc: Room: [address] [place] [address] Type: DIS IN Attending Dr: Martin Arevalo [...] 470 ms Confirmed by Delon Bahena DO ([id number]) on 09/01/2021 7:47:06 PM Referred By: Electronically Signed By:Delon Bahena DO Transcribed By: MUS Signed By Delon Bahena DO 09/01 [facility] Free T4 (Free Thyroxine)on 0 09-01-2021 Free T4 [Mass/Vol] 0.76 ng/dL Normal 0.61-1.12 [facility] Comment on above: Performed By: #### G LULS #### Point of Care testing , Glucose Poct Glucometerson 0 09-01-2021 Commemt1 Glu2: Cleaned Meter [facility] Comment on above: Result Comment: PERF ORMED BY: [facility] [address] [place] [address] PATHOLOGIST MACHINE HAMPER MAKER HEMANT CHÁVEZ M.D. Performed By: #### G LULS #### Point of Care testing , Glucose [Mass/Vol] 128 mg/dL Normal [facility] Comment on above: Result Comment: [facility] Glucose Reference Range is dependent on time and content of last meal. Glucose of more than 200 mg/dL in a nonstressed, ambulatory subject supports the diagnosis of Diabetes Mellitus. Performed By: #### G LULS #### Point of Care testing , Hepatic Panelon 09-01-2021 Albumin [Mass/Vol] 2.8 g/dL Low 3.2-5.5 [facility] Comment on above: Performed By: #### G LULS #### Point of Care testing , Albumin/Globulin [Mass ratio] 0.5 {ratio} [facility] Comment on above: Performed By: #### G LULS #### Point of Care testing , ALP [Catalytic activity/Vol] 88 U/L Normal 32-92 [facility] Comment on above: Performed By: #### G LULS #### Point of Care testing , ALT [Catalytic activity/Vol] 16 U/L Normal 10-60 [facility] Comment on above: Performed By: #### G STEVIELS #### Point of Care testing , AST [Catalytic activity/Vol] 30 U/L Normal 10-42 [facility] Comment on above: Performed By: #### G STEVIELS #### Point of Care testing , Bilirubin [Mass/Vol] 1.2 mg/dL Normal 0.3-1.2 [facility] Comment on above: Performed By: #### G STEVIELS #### Point of Care testing , Bilirubin,Indirect 1.0 mg/dL Normal [facility] Comment on above: Performed By: #### G STEVIELS #### Point of Care testing , Bilirubin.indirect [Mass/Vol] 0.2 mg/dL Normal 0.0-0.4 [facility] Comment on above: Performed By: #### G WILLEM #### Point of Care testing , Globulin (S) [Mass/Vol] 5.1 g/dL Normal [facility] Comment on above: Performed By: #### G STEVIELS #### Point of Care testing , Protein [Mass/Vol] 7.9 g/dL Normal 6.1-7.9 [facility] Comment on above: Performed By: #### G STEVIELS #### Point of Care testing , Lactic Acidon 09-01-2021 Lactate [Moles/Vol] 1.5 mmol/L Normal 0.5-2.2 [facility] Comment on above: Result Comment: PERF ORMED BY: [facility] [address] [place] [address] PATHOLOGIST MACHINE HAMPER [employer]KER HEMANT CHÁVEZ M.D. Performed By: #### C BC, LACTIC, HS TROP, HEPATIC, BMP, LIPASE, BHOB, T4F, TSH3 #### [facility] [address] Lipaseon 09-01-2021 Lipase [Catalytic activity/Vol] 25.0 U/L Normal 22-51 [facility] Comment on above: Performed By: #### G LULS #### Point of Care testing , Magnesiumon 09-01-2021 Magnesium [Mass/Vol] 2.4 mg/dL Normal 1.6-2.6 [facility] Comment on above: Order Comment: Comme nt add on to prior labs Result Comment: PERF ORMED BY: [place] [address] PATHOLOGIST MACHINE HAMPER MAKER HEMANT CHÁVEZ M.D. Performed By: #### C BC, LACTIC, HS TROP, HEPATIC, BMP, LIPASE, BHOB, T4F, TSH3 #### [address] Holley Ag Negativeon 09-02-19 Holley Ag Negative Negative Normal Negative [facility] Comment on above: Result Comment: This is a duplicate [place] SARS Antigen (JW) result to be used for statistical tracking purpose only. PERFORMED BY: [place] [address] PATHOLOGIST MACHINE HAMPER MAKER HEMANT CHÁVEZ M.D. Performed By: #### G LULS #### Point of Care testing , Thyroid Stimulating Hormoneo n 09-01-2021 TSH Qn 3.09 m[IU]/L Normal 0.45-5.33 [facility] Comment on above: Result Comment: PERF ORMED BY: [place] [address] PATHOLOGIST MACHINE HAMPER MAKER HEMANT CHÁVEZ M.D. Performed By: #### G LULS #### Point of Care testing , Troponin I High Sensitivityo n 09-01-2021 Troponin I High Sensitivity 29 pg/mL High 0-15 [facility] Comment on above: Result Comment: PERF ORMED BY: [place] [address] PATHOLOGIST MACHINE HAMPER MAKER HEMANT CHÁVEZ M.D. Performed By: #### G LULS #### Point of Care testing , Troponin I High Sensitivity 25 pg/mL High 0-15 [facility] Comment on above: Result Comment: PERF ORMED BY: [place] [address] PATHOLOGIST MACHINE HAMPER MAKER HEMANT CHÁVEZ M.D. Performed By: #### C BC, LACTIC, HS TROP, HEPATIC, BMP, LIPASE, BHOB, T4F, TSH3 #### [facility] [address] [place] [address] [place] Urinalysison 09-01-2021 Appearance (U) Cloudy Critically abnormal Clear [facility] Comment on above: Order Comment: Name Collection Type:: Straight Catheter Performed By: #### C BC, BMP #### [address] Bilirubin,Urine Negative Normal Negative [facility] Comment on above: Order Comment: Name Collection Type:: Straight Catheter Performed By: #### C BC, BMP #### [address] Color (U) Yellow Normal Yellow [facility] Comment on above: Order Comment: Name Collection Type:: Straight Catheter Performed By: #### C BC, BMP #### [address] Glucose Ql (U) Normal Normal Normal [facility] Comment on above: Order Comment: Name Collection Type:: Straight Catheter Performed By: #### C BC, BMP #### [address] Ketones Ql (U) 1+ High Negative [facility] Comment on above: Order Comment: Name Collection Type:: Straight Catheter Performed By: #### C BC, BMP #### [facility] [address] [place] [address] Leukocyte esterase Test strip Ql (U) Negative Normal Negative [facility] Comment on above: Order Comment: Name Collection Type:: Straight Catheter Performed By: #### C BC, BMP #### [facility] [address] [place] [address] [place] Nitrite,Urine Negative Normal Negative [facility] Comment on above: Order Comment: Name Collection Type:: Straight Catheter Performed By: #### C BC, BMP #### [address] [place] [address] [place] Occult Blood,Urine 2+ High Negative [facility] Comment on above: Order Comment: Name Collection Type:: Straight Catheter Result Comment: PERF ORMED BY: [place] [address] PATHOLOGIST MACHINE HAMPER MAKER HEMANT CHÁVEZ M.D. Performed By: #### C BC, BMP #### [address] pH (U) 5.5 [pH] Normal 5.0-9.0 [facility] Comment on above: Order Comment: Name Collection Type:: Straight Catheter Performed By: #### C BC, BMP #### [address] Protein (U) [Mass/Vol] 300 mg/dL High Negative [facility] Comment on above: Order Comment: Name Collection Type:: Straight Catheter Performed By: #### C BC, BMP #### [address] Specificy [place],Urine 1.026 Normal 1.001-1.030 [facility] Comment on above: Order Comment: Name Collection Type:: Straight Catheter Performed By: #### C BC, BMP #### [address] Urobilinogen,Urine Normal Normal Normal [facility] Comment on above: Order Comment: Name Collection Type:: Straight Catheter Performed By: #### C BC, BMP #### [address] Urine Cultureon 09-01-2021 Bacteria identified Cx Nom (U) ORGANISM: Klebsiella pneumoniae (O:KLEPNE) [place] Count 75,000 Aerobic MANAV Charge (NUC86) --- [...] RESISTANT TO ALL B-LACTAM DRUGS. PERFORMED BY: [place] [address] PATHOLOGIST MACHINE HAMPER MAKER HEMANT CHÁVEZ M.D. Normal [facility] Comment on above: Performed By: #### C BC, BMP #### [facility] [address] Venous Blood Gason CO2 [Moles/Vol] 23.6 mmol/L Low 24.0-29.0 [facility] Comment on above: Performed By: #### G LULS #### Point of Care testing , HCO3 (Bld) [Moles/Vol] 22.6 mmol/L Low 23.0-29.0 [facility] Comment on above: Performed By: #### G LULS #### Point of Care testing , Respiratory Critical Normal [facility] Comment on above: Result Comment: Crit ical Value called on: 09/01/2021 at 12:46 PERFORMED BY: [place] [address] PATHOLOGIST MACHINE HAMPER MAKER HEMANT CHÁVEZ M.D. Performed By: #### G LULS #### Point of Care testing , VBG Base Excess -0.6 mmol/L Normal -3.0-3.0 [facility] Comment on above: Performed By: #### G LULS #### Point of Care testing , VBG Draw Site Venous Normal [facility] Comment on above: Performed By: #### G LULS #### Point of Care testing , VBG Frac Inspired O2 21 % Normal [facility] Comment on above: Performed By: #### G LULS #### Point of Care testing , VBG O2 Content 7.7 mmol/L Normal 6.6-9.7 [facility] [place] Comment on above: Performed By: #### G LULS #### Point of Care testing , VBG Oxygen Saturation 97.1 % Off scale high 73.0-76.0 [facility] Comment on above: Performed By: #### G LULS #### Point of Care testing , VBG PCO2 32.8 mm[Hg] Low 38.0-50.0 [facility] Comment on above: Performed By: #### G LULS #### Point of Care testing , VBG PH Venous PH 7.46 High 7.32-7.43 [facility] Comment on above: Performed By: #### G LULS #### Point of Care testing , VBG PO2 88.4 mm[Hg] Off scale high 35.0-45.0 [facility] Comment on above: Performed By: #### G LULS #### Point of Care testing , XR chest 1V portableon 09-01 XR chest 1V [place] [address] XRay Report Signed Patient: Jeanmarie Garcia MR#: [id number] : 1950 Acct:[id number] Age/Sex: 71 / F ADM Date: 09/01/21 [...] Gerson White M.D.09/01/2021 12:02 PM Dictation Location: [facility]13 Transcribed By: [facility] 09/01/21 1202 Dictated By: Gerson White DO 09/01/21 1200 Signed By: 09/01/21 1202 Normal [facility] Glucose Poct Glucometerson 0 08-25-2021 Commemt1 Glu2: Cleaned Meter [facility] Comment on above: Result Comment: PERF ORMED BY: [place] [address] PATHOLOGIST MACHINE HAMPER MAKER HEMANT CHÁVEZ M.D. Performed By: #### C BC, LACTIC, HS TROP, HEPATIC, BMP, LIPASE, BHOB, T4F, TSH3 #### [address] Glucose [Mass/Vol] 143 mg/dL Normal [facility] Comment on above: Result Comment: [facility] Glucose Reference Range is dependent on time and content of last meal. Glucose of more than 200 mg/dL in a nonstressed, ambulatory subject supports the diagnosis of Diabetes Mellitus. Performed By: #### C BC, LACTIC, HS TROP, HEPATIC, BMP, LIPASE, BHOB, T4F, TSH3 #### [address] Basic Metabolic Panelon 05- Calcium [Mass/Vol] 8.4 mg/dL Normal 8.2-10.2 [facility] Comment on above: Performed By: #### C BC, LACTIC, HS TROP, HEPATIC, BMP, LIPASE, BHOB, T4F, TSH3 #### [place] [id number] [facility] Chloride [Moles/Vol] 102 mmol/L Normal 95-114 [facility] Comment on above: Performed By: #### C BC, LACTIC, HS TROP, HEPATIC, BMP, LIPASE, BHOB, T4F, TSH3 #### [facility] [address] CO2 [Moles/Vol] 26.5 mmol/L Normal 22.0-30.0 [facility] Comment on above: Performed By: #### C BC, LACTIC, HS TROP, HEPATIC, BMP, LIPASE, BHOB, T4F, TSH3 #### [facility] [address] Creatinine [Mass/Vol] 1.03 mg/dL Normal 0.44-1.03 [facility] Comment on above: Performed By: #### C BC, LACTIC, HS TROP, HEPATIC, BMP, LIPASE, BHOB, T4F, TSH3 #### [facility] [address] Creatinine Clr Calc Pharmacy 59.91 [facility] Comment on above: Performed By: #### C BC, LACTIC, HS TROP, HEPATIC, BMP, LIPASE, BHOB, T4F, TSH3 #### [facility] [address] Estimated GFR ( Roseline > 60 [facility] Comment on above: Result Comment: GFR estimated reference range: According to KDOQI guidelines, <60 ml/min/1.73m2 is sufficient to diagnose a patient with chronic kidney disease. Performed By: #### C BC, LACTIC, HS TROP, HEPATIC, BMP, LIPASE, BHOB, T4F, TSH3 #### [facility] [address] Estimated GFR (Non- Am 53 [facility] Comment on above: Performed By: #### C BC, LACTIC, HS TROP, HEPATIC, BMP, LIPASE, BHOB, T4F, TSH3 #### [facility] [address] Glucose [Mass/Vol] 148 mg/dL High 70-100 [facility] Comment on above: Result Comment: [facility] Glucose Reference Range is dependent on time and content of last meal. Glucose of more than 200 mg/dL in a nonstressed, ambulatory subject supports the diagnosis of Diabetes Mellitus. ADA recommended reference range Performed By: #### C BC, LACTIC, HS TROP, HEPATIC, BMP, LIPASE, BHOB, T4F, TSH3 #### [address] Potassium [Moles/Vol] 3.8 mmol/L Normal 3.5-5.1 [facility] Comment on above: Performed By: #### C BC, LACTIC, HS TROP, HEPATIC, BMP, LIPASE, BHOB, T4F, TSH3 #### [address] Sodium [Moles/Vol] 137 mmol/L Normal 136-146 [facility] Comment on above: Performed By: #### C BC, LACTIC, HS TROP, HEPATIC, BMP, LIPASE, BHOB, T4F, TSH3 #### [address] Urea nitrogen [Mass/Vol] 12 mg/dL Normal 9-23 [facility] Comment on above: Performed By: #### C BC, LACTIC, HS TROP, HEPATIC, BMP, LIPASE, BHOB, T4F, TSH3 #### [address] Glucose Poct Glucometerson 0 08-24-2021 Commemt1 Glu2: Cleaned Meter Normal [facility] Comment on above: Result Comment: PERF ORMED BY: [place] [address] PATHOLOGIST MACHINE HAMPER MAKER HEMANT CHÁVEZ M.D. Performed By: #### C BC, LACTIC, HS TROP, HEPATIC, BMP, LIPASE, BHOB, T4F, TSH3 #### [address] Glucose [Mass/Vol] 239 mg/dL Normal [facility] Comment on above: Result Comment: [facility] Glucose Reference Range is dependent on time and content of last meal. Glucose of more than 200 mg/dL in a nonstressed, ambulatory subject supports the diagnosis of Diabetes Mellitus. Performed By: #### C BC, LACTIC, HS TROP, HEPATIC, BMP, LIPASE, BHOB, T4F, TSH3 #### [place] [address] [place] Commemt1 Glu2: Cleaned Meter Normal [facility] Comment on above: Result Comment: PERF ORMED BY: [place] [address] PATHOLOGIST MACHINE HAMPER MAKER HEMANT CHÁVEZ M.D. Performed By: #### C BC, BMP #### [address] Glucose [Mass/Vol] 191 mg/dL Normal [facility] Comment on above: Result Comment: [facility] om Glucose Reference Range is dependent on time and content of last meal. Glucose of more than 200 mg/dL in a nonstressed, ambulatory subject supports the diagnosis of Diabetes Mellitus. Performed By: #### C BC, BMP #### [address] Glucose [Mass/Vol] 149 mg/dL Normal [facility] Comment on above: Result Comment: [facility] Glucose Reference Range is dependent on time and content of last meal. Glucose of more than 200 mg/dL in a nonstressed, ambulatory subject supports the diagnosis of Diabetes Mellitus. PERFORMED BY: [place] [address] PATHOLOGIST MACHINE HAMPER MAKER HEMANT CHÁVEZ M.D. Performed By: #### C BC, BMP #### [address] Glucose [Mass/Vol] 177 mg/dL Normal [facility] Comment on above: Result Comment: [facility] om Glucose Reference Range is dependent on time and content of last meal. Glucose of more than 200 mg/dL in a nonstressed, ambulatory subject supports the diagnosis of Diabetes Mellitus. PERFORMED BY: [place] [address] PATHOLOGIST MACHINE HAMPER MAKER HEMANT CHÁVEZ M.D. Performed By: #### C BC, LACTIC, HS TROP, HEPATIC, BMP, LIPASE, BHOB, T4F, TSH3 #### [address] HCV Ab with Rfx to NAAon HCV Ab with Reflex to Qual NAILA <0.1 Normal 0.0-0.9 [facility] Comment on above: Order Comment: Which is this, the Source or the Person with the Exposure?: SOURCE Source Medical Record: [id number] Exposed Performed By: #### C BC, BMP #### [address] Interpretation Normal . [facility] Comment on above: Order Comment: Which is this, the Source or the Person with the Exposure?: SOURCE Source Medical Record: [id number] Exposed Result Comment: Nega tive Not infected with HCV, unless recent infection is suspected or other evidence exists to indicate HCV infection. Performed at: - [facility] [id number] Tax Services Manager: Spencer Mcdaniels PhD, Phone: [phone] PERFORMED BY: [place] [address] PATHOLOGIST MACHINE HAMPER MAKER HEMANT CHÁVEZ M.D. Performed By: #### C BC, BMP #### [address] HIV Screen ([facility])on HIV Screen ([facility]) Non-Reactive Normal Nonreactive [facility] Comment on above: Order Comment: Which is this, the Source or the Person with the Exposure?: SOURCE Source Medical Record: [id number] Exposed Result Comment: PERF ORMED BY: [place] [address] PATHOLOGIST MACHINE HAMPER MAKER HEMANT CHÁVEZ M.D. Performed By: #### C BC, BMP #### [address] Hemogram CBC Without Diffon 08-24-2021 Erythrocyte distribution width (RBC) [Ratio] 15.5 % High 11.9-15.3 [facility] Comment on above: Performed By: #### C BC, LACTIC, HS TROP, HEPATIC, BMP, LIPASE, BHOB, T4F, TSH3 #### [address] Hematocrit (Bld) [Volume fraction] 35.5 % Normal 34.0-46.4 [facility] Comment on above: Performed By: #### C BC, LACTIC, HS TROP, HEPATIC, BMP, LIPASE, BHOB, T4F, TSH3 #### [address] Hemoglobin (Bld) [Mass/Vol] 11.3 g/dL Low 11.8-15.4 [facility] Comment on above: Performed By: #### C BC, LACTIC, HS TROP, HEPATIC, BMP, LIPASE, BHOB, T4F, TSH3 #### [address] MCH (RBC) [Entitic mass] 28.0 pg Normal 24.7-34.3 [facility] Comment on above: Performed By: #### C BC, LACTIC, HS TROP, HEPATIC, BMP, LIPASE, BHOB, T4F, TSH3 #### [address] MCV (RBC) [Entitic vol] 87.7 fL Normal 80-100 [facility] Comment on above: Performed By: #### C BC, LACTIC, HS TROP, HEPATIC, BMP, LIPASE, BHOB, T4F, TSH3 #### [address] Mean Corpuscular HGB Conc 31.9 g/dL Low 32.0-35.0 [facility] Comment on above: Performed By: #### C BC, LACTIC, HS TROP, HEPATIC, BMP, LIPASE, BHOB, T4F, TSH3 #### [address] Platelet mean volume (Bld) [Entitic vol] 7.7 fL Normal 6.3-10.7 [facility] Comment on above: Result Comment: PERF ORMED BY: [place] [address] PATHOLOGIST MACHINE HAMPER MAKER HEMNAT CHÁVEZ M.D. Performed By: #### C BC, LACTIC, HS TROP, HEPATIC, BMP, LIPASE, BHOB, T4F, TSH3 #### [facility] [address] Platelets (Bld) [#/Vol] 229 10*3/uL Normal 150-450 [facility] Comment on above: Performed By: #### C BC, LACTIC, HS TROP, HEPATIC, BMP, LIPASE, BHOB, T4F, TSH3 #### [address] RBC (Bld) [#/Vol] 4.05 10*6/uL Normal 3.60-5.00 [facility] Comment on above: Performed By: #### C BC, LACTIC, HS TROP, HEPATIC, BMP, LIPASE, BHOB, T4F, TSH3 #### [address] WBC (Bld) [#/Vol] 9.4 10*3/uL Normal 3.8-11.6 [facility] Comment on above: Performed By: #### C BC, LACTIC, HS TROP, HEPATIC, BMP, LIPASE, BHOB, T4F, TSH3 #### [address] Hepatic Panelon 08-24-2021 Albumin [Mass/Vol] 3.2 g/dL Normal 3.2-5.5 [facility] Comment on above: Performed By: #### C BC, LACTIC, HS TROP, HEPATIC, BMP, LIPASE, BHOB, T4F, TSH3 #### [address] Albumin/Globulin [Mass ratio] 0.8 {ratio} Normal [facility] Comment on above: Performed By: #### C BC, LACTIC, HS TROP, HEPATIC, BMP, LIPASE, BHOB, T4F, TSH3 #### [address] ALP [Catalytic activity/Vol] 99 U/L High 32-92 [facility] Comment on above: Performed By: #### C BC, LACTIC, HS TROP, HEPATIC, BMP, LIPASE, BHOB, T4F, TSH3 #### [address] ALT [Catalytic activity/Vol] 10 U/L Normal 10-60 [facility] Comment on above: Performed By: #### C BC, LACTIC, HS TROP, HEPATIC, BMP, LIPASE, BHOB, T4F, TSH3 #### [address] AST [Catalytic activity/Vol] 13 U/L Normal 10-42 [facility] Comment on above: Performed By: #### C BC, LACTIC, HS TROP, HEPATIC, BMP, LIPASE, BHOB, T4F, TSH3 #### [address] Bilirubin [Mass/Vol] 0.5 mg/dL Normal 0.3-1.2 [facility] Comment on above: Performed By: #### C BC, LACTIC, HS TROP, HEPATIC, BMP, LIPASE, BHOB, T4F, TSH3 #### [address] Bilirubin,Indirect Not performed Normal [facility] Comment on above: Performed By: #### C BC, LACTIC, HS TROP, HEPATIC, BMP, LIPASE, BHOB, T4F, TSH3 #### [address] Bilirubin.indirect [Mass/Vol] mg/dL Normal 0.0-0.4 [facility] Comment on above: Performed By: #### C BC, LACTIC, HS TROP, HEPATIC, BMP, LIPASE, BHOB, T4F, TSH3 #### [address] Globulin (S) [Mass/Vol] 3.8 g/dL Normal [facility] Comment on above: Performed By: #### C BC, LACTIC, HS TROP, HEPATIC, BMP, LIPASE, BHOB, T4F, TSH3 #### [address] Protein [Mass/Vol] 7.0 g/dL Normal 6.1-7.9 [facility] Comment on above: Performed By: #### C BC, LACTIC, HS TROP, HEPATIC, BMP, LIPASE, BHOB, T4F, TSH3 #### [facility] [address] Hepatitis B Surface Antibody on 08-24-2021 Hepatitis B Surface Antibody Non-Reactive Normal . [facility] Comment on above: Order Comment: Which is this, the Source or the Person with the Exposure?: SOURCE Source Medical Record: [id number] Exposed Result Comment: Non Reactive: Inconsistent with immunity, less than 10 mIU/mL Reactive: Consistent with immunity, greater than 9.9 mIU/mL Performed By: #### C BC, BMP #### [address] Hepatitis B Surface Antigeno n 08-24-2021 HBsAg Screen Negative Normal Negative [facility] Comment on above: Order Comment: Which is this, the Source or the Person with the Exposure?: SOURCE Source Medical Record: [id number] Exposed Result Comment: Perf ormed at: - [facility] [id number] Tax Services Manager: Spencer Mcdaniels PhD, Phone: [phone] Performed By: #### C BC, BMP #### [address] Eric 08-24-2021 L -- ---- Specimen: [id number] Received: 08/24/21 Status: JOSE Andrew Num: [id number] Spec Type: Surgical Subm Dr: Isael Castro MD Tissues: A Gallbladder (GALLBLADDER) Procedures: HE Stain, Gross/Micro L3 ---- Patient Age/Sex Location Account Attending Physician ---- Jeanmarie Garcia 71/F 4N [id number] Isael Castro MD ---- SPEC NUM: [id number] RECD: 08/24/21 STATUS: JOSE ANDREW NUM: [id number] BASIA: 08/24/21- [facility] DR: Isael Castro MD ENTERED: 08/24/21 [facility] DR: LUCIAN TYPE: Surgical DEPT: S ORDERED: [...] lesions or periductal lymph nodes are identified. Snubber sections are submitted in one cassette labeled A1. (SM/JS) Microscopic Description One glass slide with H E stained material has been examined. The microscopic findings support the above pathologic diagnosis. [id number] ---- ---- Specimen: [id number] Received: 08/24/21 Status: JOSE Memo Num: [id number] Spec Type: Surgical Subm Dr: Isael Castro MD Tissues: A Gallbladder (GALLBLADDER) Procedures: HE Stain, Gross/Micro L3 ---- Patient: GarciaJeanmarie M [id number] (Continued) ---- Signed (signature on file) Hemant Chávez MD 08/25/21 182 Normal [facility] Lipaseon 08-24-2021 Lipase [Catalytic activity/Vol] 27.0 U/L Normal 22-51 [facility] Comment on above: Result Comment: PERF ORMED BY: [place] [address] PATHOLOGIST MACHINE HAMPER MAKER HEMANT CHÁVEZ M.D. Performed By: #### C BC, LACTIC, HS TROP, HEPATIC, BMP, LIPASE, BHOB, T4F, TSH3 #### [address] Basic Metabolic Panelon 08-07 Calcium [Mass/Vol] 8.4 mg/dL Normal 8.2-10.2 [facility] Comment on above: Performed By: #### C BC, BMP #### [address] Chloride [Moles/Vol] 104 mmol/L Normal 95-114 [facility] Comment on above: Performed By: #### C BC, BMP #### [address] CO2 [Moles/Vol] 24.8 mmol/L Normal 22.0-30.0 [facility] Comment on above: Performed By: #### C BC, BMP #### [address] Creatinine [Mass/Vol] 0.96 mg/dL Normal 0.44-1.03 [facility] Comment on above: Performed By: #### C BC, BMP #### [address] Creatinine Clr Calc Pharmacy 64.28 Normal [facility] Comment on above: Performed By: #### C BC, BMP #### [facility] [address] Estimated GFR ( Roseline > 60 [facility] Comment on above: Result Comment: GFR estimated reference range: According to KDOQI guidelines, <60 ml/min/1.73m2 is sufficient to diagnose a patient with chronic kidney disease. Performed By: #### C BC, BMP #### [facility] [address] Estimated GFR (Non- Am 58 [facility] Comment on above: Performed By: #### C BC, BMP #### [facility] [address] Glucose [Mass/Vol] 101 mg/dL High 70-100 [facility] Comment on above: Result Comment: [place] [facility] om Glucose Reference Range is dependent on time and content of last meal. Glucose of more than 200 mg/dL in a nonstressed, ambulatory subject supports the diagnosis of Diabetes Mellitus. ADA recommended reference range Performed By: #### C BC, BMP #### [facility] [address] Potassium [Moles/Vol] 3.5 mmol/L Normal 3.5-5.1 [facility] Comment on above: Performed By: #### C BC, BMP #### [facility] [address] [place] [address] [place] Sodium [Moles/Vol] 137 mmol/L Normal 136-146 [facility] Comment on above: Performed By: #### C BC, BMP #### [facility] [address] [place] [id number] [facility] Urea nitrogen [Mass/Vol] 10 mg/dL Normal 9-23 [facility] Comment on above: Performed By: #### C BC, BMP #### [address] COVID-19 Antigenon 2 COVID-19 Antigen [facility] [...] developed and its performance characteristic determined by [employer] and validated at [facility]. This test has not been FDA cleared [...] for SARS Antigen by JW PERFORMED BY: [place] [address] PATHOLOGIST MACHINE HAMPER MAKER HEMANT CHÁVEZ M.D. Normal [facility] Comment on above: Performed By: #### C , BMP #### [address] COVID-19 [facility] 08-23-2021 SARS-CoV-2 (COVID-19) RNA NAILA+probe Ql (Unsp spec) Negative Normal Negative [facility] Comment on above: Order Comment: Healt hcare Worker?: N Result Comment: Testing for SARS-CoV-2 by RT-PCR This test was developed and its performance characteristics determined by [employer] (BD) and validated at the [facility]. This test has not been FDA cleared [...] is terminated or revoked sooner. PERFORMED BY: [place] [address] PATHOLOGIST MACHINE HAMPER MAKER HEMANT CHÁVEZ M.D. Performed By: #### C BC, BMP #### [address] Complete Blood Count Auto Di ffon 08-23-2021 Basophils (Bld) [#/Vol] 0.0 10*3/uL Normal 0.0-0.2 [facility] Comment on above: Result Comment: PERF ORMED BY: [place] [address] PATHOLOGIST MACHINE HAMPER MAKER HEMANT CHÁVEZ M.D. Performed By: #### C BC, BMP #### [address] Basophils/100 WBC (Bld) 0.4 % Normal . [facility] Comment on above: Performed By: #### C BC, BMP #### [address] Eosinophils (Bld) [#/Vol] 0.5 10*3/uL High 0.0-0.45 [facility] Comment on above: Performed By: #### C BC, BMP #### [address] Eosinophils/100 WBC (Bld) 5.4 % Normal . [facility] Comment on above: Performed By: #### C BC, BMP #### [address] Erythrocyte distribution width (RBC) [Ratio] 15.5 % High 11.9-15.3 [facility] Comment on above: Performed By: #### C BC, BMP #### [address] Hematocrit (Bld) [Volume fraction] 37.7 % Normal 34.0-46.4 [facility] Comment on above: Performed By: #### C BC, BMP #### [address] Hemoglobin (Bld) [Mass/Vol] 12.2 g/dL Normal 11.8-15.4 [facility] Comment on above: Performed By: #### C BC, BMP #### [address] Lymphocytes (Bld) [#/Vol] 2.0 10*3/uL Normal 1.00-4.8 [facility] Comment on above: Performed By: #### C BC, BMP #### [address] Lymphocytes/100 WBC (Bld) 21.9 % Normal . [facility] Comment on above: Performed By: #### C BC, BMP #### [address] MCH (RBC) [Entitic mass] 28.1 pg Normal 24.7-34.3 [facility] Comment on above: Performed By: #### C BC, BMP #### [address] MCV (RBC) [Entitic vol] 86.9 fL Normal 80-100 [facility] Comment on above: Performed By: #### C BC, BMP #### [address] Mean Corpuscular HGB Conc 32.3 g/dL Normal 32.0-35.0 [facility] Comment on above: Performed By: #### C BC, BMP #### [facility] [address] [place] [address] [place] Monocytes (Bld) [#/Vol] 0.6 10*3/uL Normal 0.0-0.8 [facility] Comment on above: Performed By: #### C BC, BMP #### [facility] [address] [place] [address] [place] Monocytes/100 WBC (Bld) 6.2 % Normal . [facility] Comment on above: Performed By: #### C BC, BMP #### [facility] [address] Neutrophils (Bld) [#/Vol] 5.9 10*3/uL Normal 1.8-7.7 [facility] Comment on above: Performed By: #### C BC, BMP #### [place] [address] [place] Neutrophils/100 WBC (Bld) 66.1 % Normal . [facility] Comment on above: Performed By: #### C BC, BMP #### [facility] [address] [place] [address] [place] Nucleated RBC/100 WBC (Bld) [Ratio] 0.0 % Normal 0-0.5 [facility] Comment on above: Performed By: #### C BC, BMP #### [facility] [address] [place] [address] [place] Platelet mean volume (Bld) [Entitic vol] 7.7 fL Normal 6.3-10.7 [facility] Comment on above: Performed By: #### C BC, BMP #### [facility] [address] [place] [address] [place] Platelets (Bld) [#/Vol] 261 10*3/uL Normal 150-450 [facility] Comment on above: Performed By: #### C BC, BMP #### [facility] [address] [place] [address] [place] RBC (Bld) [#/Vol] 4.33 10*6/uL Normal 3.60-5.00 [facility] Comment on above: Performed By: #### C BC, BMP #### [facility] [address] WBC (Bld) [#/Vol] 8.9 10*3/uL Normal 4.5-11.0 [facility] Comment on above: Performed By: #### C BC, BMP #### [place] [address] [place] Dipstick and Microscopicon 0 08-23-2021 Appearance (U) Cloudy Critically abnormal Clear [facility] Comment on above: Order Comment: Name Collection Type:: Clean-Voided Midstream Performed By: #### C BC, LACTIC, HS TROP, HEPATIC, BMP, LIPASE, BHOB, T4F, TSH3 #### [address] Bacteria,Urine 2+ High None Seen [facility] Comment on above: Order Comment: Name Collection Type:: Clean-Voided Midstream Performed By: #### C BC, LACTIC, HS TROP, HEPATIC, BMP, LIPASE, BHOB, T4F, TSH3 #### [facility] [address] [place] [address] [place] Bilirubin,Urine Negative Normal Negative [facility] Comment on above: Order Comment: Name Collection Type:: Clean-Voided Midstream Performed By: #### C BC, LACTIC, HS TROP, HEPATIC, BMP, LIPASE, BHOB, T4F, TSH3 #### [address] Color (U) Yellow Normal Yellow [facility] Comment on above: Order Comment: Name Collection Type:: Clean-Voided Midstream Performed By: #### C BC, LACTIC, HS TROP, HEPATIC, BMP, LIPASE, BHOB, T4F, TSH3 #### [address] Glucose Ql (U) Normal Normal Normal [facility] Comment on above: Order Comment: Name Collection Type:: Clean-Voided Midstream Performed By: #### C BC, LACTIC, HS TROP, HEPATIC, BMP, LIPASE, BHOB, T4F, TSH3 #### [address] Hyaline Casts,Urine 0-8 Normal 0-8 [facility] Comment on above: Order Comment: Name Collection Type:: Clean-Voided Midstream Result Comment: PERF ORMED BY: [place] [address] PATHOLOGIST MACHINE HAMPER MAKER HEMANT CHÁVEZ M.D. Performed By: #### C BC, LACTIC, HS TROP, HEPATIC, BMP, LIPASE, BHOB, T4F, TSH3 #### [address] Ketones Ql (U) Negative Normal Negative [facility] Comment on above: Order Comment: Name Collection Type:: Clean-Voided Midstream Performed By: #### C BC, LACTIC, HS TROP, HEPATIC, BMP, LIPASE, BHOB, T4F, TSH3 #### [address] Leukocyte esterase Test strip Ql (U) 3+ High Negative [facility] Comment on above: Order Comment: Name Collection Type:: Clean-Voided Midstream Performed By: #### C BC, LACTIC, HS TROP, HEPATIC, BMP, LIPASE, BHOB, T4F, TSH3 #### [address] Nitrite,Urine Negative Normal Negative [facility] Comment on above: Order Comment: Name Collection Type:: Clean-Voided Midstream Performed By: #### C BC, LACTIC, HS TROP, HEPATIC, BMP, LIPASE, BHOB, T4F, TSH3 #### [address] Occult Blood,Urine Negative Normal Negative [facility] Comment on above: Order Comment: Name Collection Type:: Clean-Voided Midstream Result Comment: PERF ORMED BY: [place] [address] PATHOLOGIST MACHINE HAMPER MAKER HEMANT CHÁVEZ M.D. Performed By: #### C BC, LACTIC, HS TROP, HEPATIC, BMP, LIPASE, BHOB, T4F, TSH3 #### [address] pH (U) 5.5 [pH] Normal 5.0-9.0 [facility] Comment on above: Order Comment: Name Collection Type:: Clean-Voided Midstream Performed By: #### C BC, LACTIC, HS TROP, HEPATIC, BMP, LIPASE, BHOB, T4F, TSH3 #### [address] Protein (U) [Mass/Vol] 100 mg/dL High Negative [facility] Comment on above: Order Comment: Name Collection Type:: Clean-Voided Midstream Performed By: #### C BC, LACTIC, HS TROP, HEPATIC, BMP, LIPASE, BHOB, T4F, TSH3 #### [address] RBC,Urine 1-2 Normal 0-4 [facility] Comment on above: Order Comment: Name Collection Type:: Clean-Voided Midstream Performed By: #### C BC, LACTIC, HS TROP, HEPATIC, BMP, LIPASE, BHOB, T4F, TSH3 #### [address] Specificy [place],Urine 1.021 Normal 1.001-1.030 [facility] Comment on above: Order Comment: Name Collection Type:: Clean-Voided Midstream Performed By: #### C BC, LACTIC, HS TROP, HEPATIC, BMP, LIPASE, BHOB, T4F, TSH3 #### [address] Squamous Epithelial Cell,Urine 20-30 High 0-2 [facility] Comment on above: Order Comment: Name Collection Type:: Clean-Voided Midstream Performed By: #### C BC, LACTIC, HS TROP, HEPATIC, BMP, LIPASE, BHOB, T4F, TSH3 #### [address] Urobilinogen,Urine Normal Normal Normal [facility] Comment on above: Order Comment: Name Collection Type:: Clean-Voided Midstream Performed By: #### C BC, LACTIC, HS TROP, HEPATIC, BMP, LIPASE, BHOB, T4F, TSH3 #### [facility] [address] [place] [address] WBC,Urine 50-100 High 0-4 [facility] Comment on above: Order Comment: Name Collection Type:: Clean-Voided Midstream Performed By: #### C BC, LACTIC, HS TROP, HEPATIC, BMP, LIPASE, BHOB, T4F, TSH3 #### [facility] [address] [place] [address] ECG 12 lead ECGon 08-23-2021 ECG 12 lead ECG [facility] [place] [address] [place] [address] Electrocardiograph Report Signed Patient: Jeanmarie Garcia MR#: [id number] [id number] : 1950 Acct:[id number] Age/Sex: 71 / F ADM Date: 08/23/21 Loc: [place] Room: Type: [facility] Attending Dr: Isael Castro MD Ordering Provider: [...] significant change was found Confirmed by SOY BRADSHAW DO ([id number]) on 08/24/2021 3:49:47 PM Referred By: Electronically Signed By:SOY BRADSHAW DO Transcribed By: MUS Signed By Soy Bradshaw DO 1549 Normal [facility] Glucose Poct Glucometerson 0 08-23-2021 Commemt1 Glu2: Cleaned Meter Normal [facility] Comment on above: Result Comment: PERF ORMED BY: [address] [place] [address] PATHOLOGIST MACHINE HAMPER MAKER HEMANT CHÁVEZ M.D. Performed By: #### C BC, LACTIC, HS TROP, HEPATIC, BMP, LIPASE, BHOB, T4F, TSH3 #### [facility] [address] Glucose [Mass/Vol] 197 mg/dL Normal [facility] Comment on above: Result Comment: [place] om Glucose Reference Range is dependent on time and content of last meal. Glucose of more than 200 mg/dL in a nonstressed, ambulatory subject supports the diagnosis of Diabetes Mellitus. Performed By: #### C BC, LACTIC, HS TROP, HEPATIC, BMP, LIPASE, BHOB, T4F, TSH3 #### [address] Commemt1 Glu2: Cleaned Meter Normal [facility] Comment on above: Result Comment: PERF ORMED BY: [place] [address] PATHOLOGIST MACHINE HAMPER MAKER HEMANT CHÁVEZ M.D. Performed By: #### C BC, LACTIC, HS TROP, HEPATIC, BMP, LIPASE, BHOB, T4F, TSH3 #### [address] Glucose [Mass/Vol] 145 mg/dL Normal [facility] Comment on above: Result Comment: [place] Glucose Reference Range is dependent on time and content of last meal. Glucose of more than 200 mg/dL in a nonstressed, ambulatory subject supports the diagnosis of Diabetes Mellitus. Performed By: #### C BC, LACTIC, HS TROP, HEPATIC, BMP, LIPASE, BHOB, T4F, TSH3 #### [address] Hepatic Panelon 08-23-2021 Albumin [Mass/Vol] 3.1 g/dL Low 3.2-5.5 [facility] Comment on above: Performed By: #### C BC, BMP #### [address] Albumin/Globulin [Mass ratio] 0.8 {ratio} Normal [facility] Comment on above: Performed By: #### C BC, BMP #### [facility] [address] ALP [Catalytic activity/Vol] 91 U/L Normal 32-92 [facility] Comment on above: Performed By: #### C BC, BMP #### [facility] [address] ALT [Catalytic activity/Vol] 12 U/L Normal 10-60 [facility] Comment on above: Performed By: #### C BC, BMP #### [facility] [address] AST [Catalytic activity/Vol] 16 U/L Normal 10-42 [facility] Comment on above: Performed By: #### C BC, BMP #### [facility] [address] [place] [address] Bilirubin [Mass/Vol] 0.5 mg/dL Normal 0.3-1.2 [facility] Comment on above: Performed By: #### C BC, BMP #### [facility] [address] [place] [address] Bilirubin,Indirect Not performed Normal [facility] Comment on above: Performed By: #### C BC, BMP #### [address] Bilirubin.indirect [Mass/Vol] mg/dL Normal 0.0-0.4 [facility] Comment on above: Performed By: #### C BC, BMP #### [facility] [address] [place] [address] Globulin (S) [Mass/Vol] 3.8 g/dL Normal [facility] Comment on above: Performed By: #### C BC, BMP #### [address] Protein [Mass/Vol] 6.9 g/dL Normal 6.1-7.9 [facility] Comment on above: Performed By: #### C BC, BMP #### [facility] [address] [place] [address] [place] Lipaseon 05-17-2022 Lipase [Catalytic activity/Vol] 31.0 U/L Normal 22-51 [facility] Comment on above: Result Comment: PERF ORMED BY: [place] [address] PATHOLOGIST MACHINE HAMPER MAKER HEMANT CHÁVEZ M.D. Performed By: #### C BC, BMP #### [address] Holley Ag Negativeon 08-24-19 Holley Ag Negative Negative Normal Negative [facility] Comment on above: Result Comment: This is a duplicate Holley SARS Antigen (JW) result to be used for statistical tracking purpose only. PERFORMED BY: [place] [address] PATHOLOGIST MACHINE HAMPER MAKER HEMANT CHÁVEZ M.D. Performed By: #### C BC, BMP #### [address] US gall bladderon 08-23-2021 US gall bladder [facility] [place] [address] [place] [address] Ultrasound Report Signed Patient: Jeanmarie Garcia MR#: [id number] 757 : 1950 Acct:[id number] Age/Sex: 71 / F ADM Date: 08/23/21 Loc: ER Room: Type: [facility] Attending Dr: Ordering Provider: Soy Bradshaw DO Date of Service: 08/23/21 US/US gall bladder: ABDOMINAL PAIN Copies to: Soy Bradshaw DO LIMITED ABDOMINAL ULTRASOUND: CLINICAL HISTORY: Right [...] Glasgow Jr., D.OMichaelle08/23/2021 9:59 AM Dictation Location: [place] [address] Tech: Lolis Owen Transcribed By: [facility] 08/23/21958 Dictated By: Gerald Glasgow Jr, DO 08/23/21 0954 Signed By: 08/23/21958 [facility] Urine Cultureon 08-23-2021 Bacteria identified Cx Nom (U) >100,000 colonies/ml mixed bacterial skin contaminants 2 Days PERFORMED BY: [place] [address] PATHOLOGIST MACHINE HAMPER MAKER HEMANT CHÁVEZ M.D. [facility] Comment on above: Performed By: #### C BC, LACTIC, HS TROP, HEPATIC, BMP, LIPASE, BHOB, T4F, TSH3 #### [address] Coding Summaryon 05-28-2019 Coding Summary CODING DATE: 05/28/2019 [facility] STATUS: Home PAYOR: Medicare ADMIT DX: REASON [...] Mony Vines Date Saved: 05/28/2019 03:02 pm [facility] MAGR Intraoperative Recordon 05-15-2019 MAGR Intraoperative Record MAGR Intra-Op Record Summary Primary Physician: Magdi Mclaughlin MD Finalized Date/Time: 05/15/19 13:43:13 Pt. Name: JEANMARIE GARCIA/Sex: 1950 FEMALE Med Rec #: [id number] Physician: Magdi Mclaughlin MD Financial #: [id number] Pt. Type: D Room/Bed: / Admit/Disch: 05/13/19 [...] Role Performed Surgeon - Primary Anesthesiologist of Evaluation Manager Record Time In 05/13/19 07:42:00 05/13/19 07:42:00 05/13/19 07:42:00 Time Out 05/13/19 09:07:00 05/13/19 09:07:00 05/13/19 09:07:00 Procedure Hernia Repair Ventral Hernia Repair Ventral Hernia Repair Ventral Last Modified By: Anuja Farias RN, Barbara RN Long, Barbara RN 05/13/19 09:08:03 05/13/19 09:08:03 05/13/19 09:08:03 Entry 4 Entry 5 Case Attendee Irving LOOMIS, Dana Dai CST Role Performed Scrub Personnel Solution Strategist Time In 05/13/19 07:42:00 05/13/19 07:42:00 Time [...] Date/Time By: Size 3 CM / 3.2 [employer] BARD Lot Number [id number] Expiration Date 07/04/20 Implant Usage Data Site Abdomen Quantity 1 Biosecurity Officer Sterility Outcome Met (O.30) Yes Last Modified [...] Condition Intact Description Report Given To Rosendo HAYWARD, Yolanda George Airway Maintenance Patient Status Stable Oxygen in Use? Yes Flow Rate 15 L/min Last Modified By: Anuja Farias RN 05/13/19 08:29:40 Case Comments Finalized By: Anuja Farias RN Document Signatures Signed By: Anuja Farias RN 05/13/19 09:08 Anuja Farias RN 05/15/19 13:43 Unfinalized History Date/Time Username Reason for Unfinalizing Freetext Reason for Unfinalizing 05/15/19 13:42 MHBLONG Modify Pick List Normal [facility] Coding Summaryon 05-14-2019 Coding Summary CODING DATE: 05/14/2019 [facility] STATUS: Home PAYOR: Medicare MC APC DESCRIPTION 5341 Abdominal/Peritoneal/B iliary and Related Procedures ADMIT DX: REASON FOR VISIT DX: K43.9 Ventral hernia without obstruction or gangrene FINAL DX: PRINCIPAL: K43.9 Ventral hernia without obstruction or gangrene SECONDARY: E11.9 Type 2 diabetes mellitus without complications Z79.4 compliance aide (current) use of insulin PYMT PROC APC STAT DESCRIPTION DOCTOR NAME DATE 28677 5341 J1 Repair initial Magdi Mclaughlin MD 05/13/2019 incisional or ventral hernia; reducible 85414 Implantation of mesh or Magdi Mclaughlin MD [...] Sarai Lynn Date Saved: 05/14/2019 02:01 pm [facility] Consent Formson 05-14-2019 Consent Forms [id number] 20 [id number]#1.[address] [place] [address] Medication Managementon Medication Management [id number]#1.[address] [place] [address] Outside Recordson 05-14-2019 Outside Records [id number] 20 [id number]#1.[address] [place] [address] Provider Orderson 05-14-2019 Provider Orders [id number] 20 [id number]#1.[address] [place] [address] Telemetry Stripson 0 Telemetry Strips [id number] 20 [id number]#1.[address] [place] [address] Anesthesia Noteon 05-13-2019 Anesthesia Note Patient: JEANMARIE [...] on: 05/13/2019 09:57 EST] Kevin Khoury MD [facility] Anesthesia Note Patient: JEANMARIE GARCIA Age: [...] (chronic obstructive pulmonary disease) / SNOMED CT 19254361 / Confirmed Development delay / SNOMED CT 641014655 / Confirmed Diabetes / SNOMED CT 793341510 / Confirmed GERD (gastroesophageal reflux disease) / SNOMED CT 551007095 / Confirmed Hyponatremia / SNOMED CT 194422322 / Confirmed Hypothyroidism / SNOMED CT 29304655 / Confirmed Schizophrenia / SNOMED CT 57863288 / Confirmed Speech problem / SNOMED CT 599388804 / Confirmed Resolved: Depression / SNOMED CT 11650084 Histories Family History: History is unknown. Procedure history: Stomach ([id number]). Comments: 11/19/2018 12:55 Marshal Hoyos RN pt [...] Oriented. Review / Management Laboratory Results Plan Citizen Of [place] Society of Anesthesiologists#(ASA ) physical status classification: [...] on: 05/13/2019 08:13 EST] Kevin Khoury MD [facility] History and Physicalon 05-13 History and Physical [id number] .[id number] [facility] Inpatient Patient Summaryon 05-13-2019 [place] [address] Patient Discharge Instructions Name: JEANMARIE GARCIA : 1950 Patient Address: [address] [place] [address] Primary Care Provider: Name: GERALD FUENTES After you are discharged if you find you have any questions, please, call [phone] ext [phone] to speak to a nurse. Discharge Diagnosis: Ventral incisional hernia Prescription Information: If you have been given a prescription for narcotics, seek immediate medical attention if you have any difficulty breathing or any sudden status changes such as confusion and sleepiness. If you or anyone you know is experiencing suicidal thoughts, mental health, alcohol and/or drug addiction problems; contact the [facility] 30/10 Crisis Hotline -Text 4HOPE to 393466. If you received any narcotics, sedation, or [...] business decisions or sign any legal documents [facility] would like to thank you for allowing us to assist you with your healthcare needs. The following includes patient education materials and information regarding your injury/illness. JEANMARIE GARCIA KARMA has been given the following list of follow-up instructions, prescriptions, and patient education materials: Follow-up Instructions With: Address: When: Magdi Mclaughlin [address] [place] [address], [address] [place], [place] [id number] Business (1) In 2 weeks 05/27/2019 With: Address: When: GERALD FUENTES [address] [place] [address] [facility] (1) Medications During the course of your visit, your medication list was updated with the most current information. The details of those changes are reflected below: New Medications Printed Prescriptions acetaminophen-hydrocod one ([place] 5 mg-325 mg oral tablet) 1 tab(s) [...] needed as needed for pain. acetaminophen-hydrocod one ([place] 5 mg-325 mg oral tablet) 1 tab(s) [...] the next day or two. ? Take dwhe-yrc-icqwrlz and prescription medicines only as told by [...] 03/12/2013 Document Revised: 05/08/2018 Document Reviewed: 10/15/2017 [employer] Interactive Patient Education ? 2019 [employer] Viruses or Bacteria What?s got you [...] for Disease Control and Prevention December 2013 [facility] PACU Record MAGR PACU Record Summary Primary Physician: Magdi Mclaughlin MD Finalized Date/Time: 05/13/19 10:21:28 Pt. Name: JEANMARIE GARCIA KARMA [place]./Sex: 1950 FEMALE Med Rec #: [id number] Physician: Magdi Mclaughlin MD Financial #: [id number] Pt. Type: D Room/Bed: / Admit/Disch: 05/13/19 05:53:00 - Institution: PACU Case Times MAGR Entry 1 In PACU I 05/13/19 09:10:00 Discharge from PACU 05/13/19 09:49:00 I Last Modified By: Yolanda Robbins RN 05/13/19 10:21:25 Finalized By: Yolanda Robbins RN Document Signatures Signed By: Yolanda Robbins RN 05/13/19 10:21 [facility] 05-13-2019 MAGR Postoperative Record MAGR Phase II Record Summary Primary Physician: Magdi Mclaughlin MD Finalized Date/Time: 05/13/19 12:19:23 Pt. Name: JEANMARIE GARCIA KARMA [place]./Sex: 1950 FEMALE Med Rec #: [id number] Physician: Magdi Mclaughlin MD Financial #: [id number] Pt. Type: D Room/Bed: / Admit/Disch: 05/13/19 05:53:00 - Institution: [facility] II Case Times MAGR Pre-Care Text: Patient [...] Signed By: Denae Najera RN 05/13/19 12:19 [facility] MAGR Preoperative Recordon 0 05-13-2019 MAGR Preoperative Record MAGR Pre-Op Record Summary Primary Physician: Magdi Mclaughlin MD Finalized Date/Time: 05/13/19 08:06:19 Pt. Name: JEANMARIE GARCIA /Sex: 1950 FEMALE Med Rec #: [id number] Physician: Magdi Mclaughlin MD Financial #: [id number] Pt. Type: D Room/Bed: / Admit/Disch: 05/13/19 [...] Farias RN Document Signatures Signed By: Anuja Fairas RN 05/13/19 08:06 [facility] Operative Report - Surgeon/P rico 05-13-2019 [...] The fascia was closed transversely using interrupted cvrjpo-bh-tvntw 0 Vicryl sutures. The sutures included the [...] discharged today. Magdi Mclaughlin M.D. JOB #: [id number] bk CC: Gerald Fuentes D.O. [Electronically Signed on: 05/13/2019 11:19 EST] Magdi Mclaughlin MD [Verified on: 05/13/2019 11:19 EST] Magdi Mclaughlin MD [Transcribed on: 05/13/2019 10:09 EST] [facility] Patient Handouton 05-13-2019 Patient Handout Gastroenterology Ventral [...] the next day or two. ? Take egry-xii-nzfrvor and prescription medicines only as told by [...] 03/12/2013 Document Revised: 05/08/2018 Document Reviewed: 10/15/2017 [employer] Interactive Patient Education ? 2019 Quotations Book. [facility] Progress Note - Nurseon 02-0 3-2020 Progress Note - Nurse Pre-op call done, talked with caregiver @ [facility]. Instructed to have pt. here @ 05-13-2019, NPO after midnight-verbalized understanding. [Electronically Signed on: 05/12/2019 09:47 EST] Denae Najera RN [Verified on: 05/12/2019 09:47 EST] Denae Najera RN [facility] Coding Summaryon 05-08-2019 Coding Summary CODING DATE: 05/08/2019 [facility] STATUS: Home PAYOR: Medicare ADMIT DX: REASON [...] Deanna Whitman Date Saved: 05/08/2019 09:15 am [facility] Progress Note - Nurseon 04-11 Progress Note - Nurse Chart reviewed by Dr. Palacios and no new orders received. [Electronically Signed on: 05/08/2019 15:51 EST] Yolanda Soto RN [Verified on: 05/08/2019 15:51 EST] Yolanda Soto RN [facility] .Auto Diff 1on 05-07-2019 Auto [place] % 5 % Normal 1-12 [facility] Comment on above: Performed By: #### 1 [id number], [id number], [id number] #### [facility] (DEFAULT) [address] [place] [address] Baso Abs# 0.0 x10 Normal 0.0-0.2 [facility] Comment on above: Performed By: #### 1 [id number], [id number], [id number] #### [facility] (DEFAULT) [address] [place] [address] Basophils/100 WBC (Bld) 0.1 % Low 0.2-2.0 [facility] Comment on above: Performed By: #### 1 [id number], [id number], [id number] #### [facility] (DEFAULT) [address] [place] [address] Eos Abs# 1.2 x10 High 0.0-0.4 [facility] Comment on above: Performed By: #### 1 [id number], [id number], [id number] #### [facility] (DEFAULT) [address] [place] [address] Eosinophils/100 WBC (Bld) 11.4 % High 0.9-4.0 [facility] Comment on above: Performed By: #### 1 [id number], [id number], [id number] #### [facility] (DEFAULT) [address] [place] [address] Lymphocytes (Bld) [#/Vol] 3.3 x10 High 1.3-2.9 [facility] Comment on above: Performed By: #### 1 [id number], [id number], [id number] #### [facility] (DEFAULT) [address] [place] [address] Lymphocytes/100 WBC (Bld) 31 % Normal 14-48 [facility] Comment on above: Performed By: #### 1 [id number], [id number], [id number] #### [facility] (DEFAULT) [address] [place] [address] [place] Abs# 0.6 x10 Normal 0.0-0.8 [facility] Comment on above: Performed By: #### 1 [id number], [id number], [id number] #### [facility] (DEFAULT) [address] [place] [address] Neut Abs# 5.7 x10 Normal 1.5-9.2 [facility] Comment on above: Performed By: #### 1 [id number], [id number], [id number] #### [facility] (DEFAULT) [address] [place] [address] Neutrophils/100 WBC (Bld) 53 % Normal 44-88 [facility] Comment on above: Performed By: #### 1 [id number], [id number], [id number] #### [facility] (DEFAULT) [address] [place] [address] Standardon 05-07-2019 eGFR Non AA >60 [facility] [facility] Comment on above: Performed By: #### 1 [id number], [id number], [id number] #### [facility] (DEFAULT) [address] [place] [address] eGFR AA >60 [facility] Comment on above: Result Comment: Cyber Security Architect anna Kidney disease could be indicated at eGFRs of less than 60 ml/min/1.73m2. Kidney Failure is indicated at less than 15 ml/min/1.73m2 Performed By: #### 1 [id number], 7367596, [id number] #### [facility] (DEFAULT) [address] [place] [address] 14266 Anion gap [Moles/Vol] 13.0 mmol/L Normal 5.0-19.0 [facility] Comment on above: Performed By: #### 1 [id number], 3367732, 61468360 #### [facility] (DEFAULT) [address] [place] [address] 17659 Calcium [Mass/Vol] 9.3 mg/dL Normal 8.9-10.3 [facility] Comment on above: Performed By: #### 1 [id number], 2337650, [id number] #### [facility] (DEFAULT) [address] [place] [address] 15239 Chloride [Moles/Vol] 100 mmol/L Low 101-[address] [facility] Comment on above: Performed By: #### 1 [id number], 2949049, [id number] #### [facility] (DEFAULT) [address] [place] [address] 14036 CO2 [Moles/Vol] 29 mmol/L Normal 21-32 [facility] Comment on above: Performed By: #### 1 [id number], 7323267, 40424126 #### [facility] (DEFAULT) [address] [place] [address] 03960 Creatinine [Mass/Vol] 0.83 mg/dL Normal 0.60-1.30 [facility] Comment on above: Performed By: #### 1 [id number], 7680616, 04971276 #### [facility] (DEFAULT) [address] [place] [address] 79023 Glucose [Mass/Vol] 119.0 mg/dL High 74.0-118.0 [facility] Comment on above: Performed By: #### 1 [id number], 2034591, 08539057 #### [facility] (DEFAULT) [address] [place] [address] 57680 Osmolality [Osmolality] 280 mOsm/L [facility] Comment on above: Performed By: #### 1 [id number], 5206302, 96148779 #### [facility] (DEFAULT) [address] [place] [address] 19604 Potassium [Moles/Vol] 4.2 mmol/L Normal 3.6-5.1 [facility] Comment on above: Performed By: #### 1 [id number], 8230428, 77276403 #### [facility] (DEFAULT) [address] [place] [address] 41887 Sodium [Moles/Vol] 138.0 mmol/L Normal 136.0-144.0 [facility] Comment on above: Performed By: #### 1 [id number], 8114820, [id number] #### [facility] (DEFAULT) [address] [place] [address] 99586 Urea nitrogen [Mass/Vol] 21 mg/dL Normal 8-26 [facility] Comment on above: Performed By: #### 1 [id number], 0327935, 97832401 #### [facility] (DEFAULT) [address] [place] [address] 78247 Urea nitrogen/Creatinine [Mass ratio] 25.0 mg/mg High 4.6-16.2 [facility] Comment on above: Performed By: #### 1 [id number], 5543818, 73380936 #### [facility] (DEFAULT) [address] [place] [address] CBC w/ Auto Diffon 0 Erythrocyte distribution width (RBC) [Ratio] 14.5 % Normal 11.5-15.0 [facility] Comment on above: Performed By: #### 7 [id number], 26400256, [id number] #### [facility] (DEFAULT) [address] [place] [address] Hematocrit (Bld) [Volume fraction] 40.5 % High 33.7-40.4 [facility] Comment on above: Performed By: #### 7 [id number], 49292042, [id number] #### [facility] (DEFAULT) [address] [place] [address] 69071 Hemoglobin (Bld) [Mass/Vol] 12.7 g/dL Normal 11.3-15.9 [facility] Comment on above: Performed By: #### 7 877907, 44824568, [id number] #### [facility] (DEFAULT) [address] [place] [address] 36306 Man Diff? Auto Normal [facility] Comment on above: Performed By: #### 7 [id number], 96097475, [id number] #### [facility] (DEFAULT) [address] [place] [address] 97261 MCH (RBC) [Entitic mass] 28 pg Normal 24-34 [facility] Comment on above: Performed By: #### 7 136600, 58648219, [id number] #### [facility] (DEFAULT) [address] [place] [address] 50494 MCHC (RBC) [Mass/Vol] 31 g/dL Normal 26-37 [facility] Comment on above: Performed By: #### 7 615845, 37266638, [id number] #### [facility] (DEFAULT) [address] [place] [address] 27499 MCV (RBC) [Entitic vol] 91 fL Normal 81-100 [facility] Comment on above: Performed By: #### 7 [id number], 42480822, [id number] #### [facility] (DEFAULT) [address] [place] [address] 45481 Platelet mean volume (Bld) [Entitic vol] 9.4 fL Normal 6.3-10.2 [facility] Comment on above: Performed By: #### 7 506258, 19542436, [id number] #### [facility] (DEFAULT) [address] [place] [address] 75322 Platelets (Bld) [#/Vol] 275 x10 Normal 138-427 [facility] Comment on above: Performed By: #### 7 226174, 62102027, [id number] #### [facility] (DEFAULT) [address] [place] [address] 35417 RBC (Bld) [#/Vol] 4.45 x10 Normal 3.70-5.30 [facility] Comment on above: Performed By: #### 7 994873, 12267930, [id number] #### [facility] (DEFAULT) [address] [place] [address] 63227 WBC (Bld) [#/Vol] 10.9 x10 High 3.5-10.5 [facility] Comment on above: Performed By: #### 7 496615, 61889641, [id number] #### [facility] (DEFAULT) [address] [place] [address] 89855 Patient Letteron 03-12-2019 Patient Letter [id number]#1.0 0OTGTIFF Normal [facility] Patient Letter [id number] 30 [id number]#1.0 0OTGTIFF Normal [facility] CARDIAC STRESS/REST INJE CTIONon 12-31-[address] [facility] CARDIAC STRESS/REST INJECTION Patient Name: JEANMARIE GARCIA STUDY: MYOCARDIAL PERFUSION STRESS TEST WITH LEXISCAN Performing facility: [facility], [address] [place] [address], [address], [place] [address] [facility] Provider: Sharon Floyd MD, [facility] PCP: Dr. Milton FUENTES SURGEON: DR. Debbi GARCIA Supervising provider: Rui Ford DO, [facility] INDICATION: DM NICM Pre-operative risk assessment for ventral Hernia scheduled at [facility], DATE PENDING HISTORY: Gender: F; Age: 68 y/o ; Height: 162.56 cm; Weight: 96.0778367 kg. High Cholesterol; Diabetes; HTN; COPD; NICM Currently smoking. COMPARISON: No comparison. ACCESSION NUMBER(S): [id number]; [id number]; [id number] ORDERING CLINICIAN: KEVIN FLOYD TECHNIQUE: ONE DAY protocol. Stress injection: Date:12/31/18, [...] comparison. Electronically signed by: BERTHA GONZALEZ MD [facility] Coding Summaryon 12-30-2018 Coding Summary CODING DATE: 12/30/2018 [facility] STATUS: Home PAYOR: Medicare ADMIT DX: REASON [...] Mony Vines Date Saved: 12/30/2018 03:13 pm [facility] Outside Recordson 12-25-2018 Outside Records [id number]#1. 00OTGTIFF [facility] Progress Note - Nurseon 11-07 Progress Note - Nurse Chart reviewed by Dr. Palacios no new orders received. [Electronically Signed on: 11/21/2018 14:21 EDT] Yolanda Soto RN [Verified on: 11/21/2018 14:21 EDT] Yolanda Soto RN [facility] Coding Summaryon 11-20-2018 Coding Summary CODING DATE: 11/20/2018 [facility] STATUS: Home PAYOR: Medicare APC DESCRIPTION [id number] [...] Justin Date Saved: 11/20/2018 11:29 am Normal [facility] .Auto Diff 1on 11-19-2018 Auto Carlton % 5 % Normal 1-12 [facility] Comment on above: Performed By: #### 1 [id number], 6515356, [id number] #### [facility] (DEFAULT) [address] [place] [address] 32526 Baso Abs# 0.0 x10 Normal 0.0-0.2 [facility] Comment on above: Performed By: #### 1 [id number], 7115235, [id number] #### [facility] (DEFAULT) [address] [place] [address] 40805 Basophils/100 WBC (Bld) 0.1 % Low 0.2-2.0 [facility] Comment on above: Performed By: #### 1 [id number], 9505752, 92609144 #### [facility] (DEFAULT) [address] [place] [address] 46073 Eos Abs# 1.3 x10 High 0.0-0.4 [facility] Comment on above: Performed By: #### 1 [id number], 5184387, 76564966 #### [facility] (DEFAULT) [address] [place] [address] 28678 Eosinophils/100 WBC (Bld) 11.7 % High 0.9-4.0 [facility] Comment on above: Performed By: #### 1 [id number], 5616092, 46070046 #### [facility] (DEFAULT) [address] [place] [address] 64282 Lymphocytes (Bld) [#/Vol] 2.9 x10 Normal 1.3-2.9 [facility] Comment on above: Performed By: #### 1 585878535, 9404242, 91109115 #### [facility] (DEFAULT) [address] [place] [address] 59631 Lymphocytes/100 WBC (Bld) 26 % Normal 14-48 [facility] Comment on above: Performed By: #### 1 [id number], 2557813, 57256982 #### [facility] (DEFAULT) [address] [place] [address] Carlton Abs# 0.5 x10 Normal 0.0-0.8 [facility] Comment on above: Performed By: #### 1 115288583, 7061902, 08250397 #### [facility] (DEFAULT) [address] [place] [address] Neut Abs# 6.4 x10 Normal 1.5-9.2 [facility] Comment on above: Performed By: #### 1 052546438, 4019619, 04111247 #### [facility] (DEFAULT) [address] [place] [address] Neutrophils/100 WBC (Bld) 58 % Normal 44-88 [facility] Comment on above: Performed By: #### 1 [id number], 9960363, 55282654 #### [facility] (DEFAULT) [address] [place] [address] Standardon 11-19-2018 eGFR Non AA 60 mL/min/1.73m2 [facility] Comment on above: Performed By: #### 1 [id number], 6601304, 93689402 #### [facility] (DEFAULT) [address] [place] [address] eGFR AA >60 [facility] Comment on above: Result Comment: Cyber Security Architect anna Kidney disease could be indicated at eGFRs of less than 60 ml/min/1.73m2. Kidney Failure is indicated at less than 15 ml/min/1.73m2 Performed By: #### 1 [id number], 7577041, 69352750 #### [facility] (DEFAULT) [address] [place] [address] Anion gap [Moles/Vol] 15.0 mmol/L Normal 5.0-19.0 [facility] Comment on above: Performed By: #### 1 [id number], 8768184, 91297182 #### [facility] (DEFAULT) [address] [place] [address] Calcium [Mass/Vol] 9.5 mg/dL Normal 8.9-10.3 [facility] Comment on above: Performed By: #### 1 [id number], 0058358, 22972263 #### [facility] (DEFAULT) [address] [place] [address] 65739 Chloride [Moles/Vol] 101 mmol/L Normal 101-[address] [facility] Comment on above: Performed By: #### 1 [id number], 8486640, 71120402 #### [facility] (DEFAULT) [address] [place] [address] 32035 CO2 [Moles/Vol] 26 mmol/L Normal 21-32 [facility] Comment on above: Performed By: #### 1 636623212, 1318382, 42784581 #### [facility] (DEFAULT) [address] [place] [address] 85023 Creatinine [Mass/Vol] 0.93 mg/dL Normal 0.60-1.30 [facility] Comment on above: Performed By: #### 1 [id number], 2074966, 51169456 #### [facility] (DEFAULT) [address] [place] [address] 82743 Glucose [Mass/Vol] 128.0 mg/dL High 74.0-118.0 [facility] Comment on above: Performed By: #### 1 [id number], 5122284, 86842744 #### [facility] (DEFAULT) [address] [place] [address] 90843 Osmolality [Osmolality] 281 mOsm/L [facility] Comment on above: Performed By: #### 1 [id number], 3465459, 99920301 #### [facility] (DEFAULT) [address] [place] [address] 97359 Potassium [Moles/Vol] 4.2 mmol/L Normal 3.6-5.1 [facility] Comment on above: Performed By: #### 1 [id number], 8498020, 34996869 #### [facility] (DEFAULT) [address] [place] [address] 15725 Sodium [Moles/Vol] 138.0 mmol/L Normal 136.0-144.0 [facility] Comment on above: Performed By: #### 1 [id number], 8186628, 98745328 #### [facility] (DEFAULT) [address] [place] [address] 36046 Urea nitrogen [Mass/Vol] 22 mg/dL Normal 8-26 [facility] Comment on above: Performed By: #### 1 [id number], 2820092, 00669259 #### [facility] (DEFAULT) [address] [place] [address] Urea nitrogen/Creatinine [Mass ratio] 24.0 mg/mg High 4.6-16.2 [facility] Comment on above: Performed By: #### 1 [id number], 3043904, 20739694 #### [facility] (DEFAULT) [address] [place] [address] CBC w/ Auto Diffon 9 Erythrocyte distribution width (RBC) [Ratio] 14.9 % Normal 11.5-15.0 [facility] Comment on above: Performed By: #### 1 [id number], 7875854, 11803777 #### [facility] (DEFAULT) [address] [place] [address] Hematocrit (Bld) [Volume fraction] 39.4 % Normal 33.7-40.4 [facility] Comment on above: Performed By: #### 1 [id number], 0085622, 58026824 #### [facility] (DEFAULT) [address] [place] [address] 94095 Hemoglobin (Bld) [Mass/Vol] 12.4 g/dL Normal 11.3-15.9 [facility] Comment on above: Performed By: #### 1 [id number], 1967274, 39434966 #### [facility] (DEFAULT) [address] [place] [address] Man Diff? Auto Normal [facility] Comment on above: Performed By: #### 1 518296679, 6164028, 85269304 #### [facility] (DEFAULT) [address] [place] [address] 14446 MCH (RBC) [Entitic mass] 29 pg Normal 24-34 [facility] Comment on above: Performed By: #### 1 334679454, 9001053, 61473667 #### [facility] (DEFAULT) [address] [place] [address] 24870 MCHC (RBC) [Mass/Vol] 32 g/dL Normal 26-37 [facility] Comment on above: Performed By: #### 1 [id number], 6420060, 73952398 #### [facility] (DEFAULT) [address] [place] [address] 08688 MCV (RBC) [Entitic vol] 91 fL Normal 81-100 [facility] Comment on above: Performed By: #### 1 [id number], 9140649, 43993780 #### [facility] (DEFAULT) [address] [place] [address] 96665 Platelet mean volume (Bld) [Entitic vol] 9.3 fL Normal 6.3-10.2 [facility] Comment on above: Performed By: #### 1 [id number], 1896457, 38681772 #### [facility] (DEFAULT) [address] [place] [address] 69888 Platelets (Bld) [#/Vol] 278 x10 Normal 138-427 [facility] Comment on above: Performed By: #### 1 [id number], 3602341, 68033867 #### [facility] (DEFAULT) [address] [place] [address] 91059 RBC (Bld) [#/Vol] 4.34 x10 Normal 3.70-5.30 [facility] Comment on above: Performed By: #### 1 [id number], 8901487, 60267028 #### [facility] (DEFAULT) [address] [place] [address] 59753 WBC (Bld) [#/Vol] 11.2 x10 High 3.5-10.5 [facility] Comment on above: Performed By: #### 1 [id number], 9183002, 26613955 #### [facility] (DEFAULT) [address] [place] [address] 34870 PROGRESSon 07-19-2017 PROGRESS HNO ID: [id number]: Patrick (Pa) GrantService: (none)Author Type: Physician AssistantType: Progress NotesFiled: 07/20/2017 10:27 AMNote Text: [facility] NOTENAME: ELMA GARCIA NO.: [id number] OF SERVICE: 07/19/2017Irina Summers OF : August [...] SYSTEMS: Please see above.MEDICATIONS: Reviewed in the fpc record.CODE STATUS: Full code.PHYSICAL EXAMINATION: Revealed middle-aged [...] supportive care.DICTATED BY: AIDEE López/AcusisD: 018 JOB# [id number]:Irina Caalectronically Signed by Celina Judd PA-C at 07/20/2017 10:16:25 Normal [facility] PROGRESSon 06-07-2017 PROGRESS HNO ID: [id number]: Fatmata Sharmaervice: (none)Author Type: PhysicianType: Progress NotesFiled: 06/08/2017 4:57 PMNote Text: [facility] NOTENAME: PATRICIO GARCIA NO.: [id number] [facility] SERVICE: [facility]/07/2017[facility] 1950Shtari is sitting up in bed. She is [...] regimen.DICTATED BY: Fatmata Casey MDIAE/AcusisD:06/08/19 18 JOB# [id number]:[facility] Signed by Fatmata Casey MD at 06/08/2017 16:46:12 Normal [facility] PROGRESSon 05-17-2017 PROGRESS HNO ID: [id number]: Celina Dorantes) GrantService: (none)Author Type: Physician AssistantType: Progress NotesFiled: 05/18/2017 10:17 AMNote Text: [facility] NOTENAME: PATRICIO GARCIA NO.: [id number] OF SERVICE: 05/17/2017[facility] May 7, 1951CHIEF COMPLAINT: Followup diabetes.SUBJECTIVE FINDINGS: The patient was seen in her room at [facility] followup visit. She reported that she was doing well in [facility]. She had been admitted here approximately 1 month ago. Shecontinued to smoke on occasion, although she stated she was trying toquit. Nurses reported her to be eating and drinking well. There was noevidence of seizure activity. She reported that her appetite was goodand bowels regular.REVIEW OF SYSTEMS: Please see above.FAMILY/SOCIAL HISTORY: Unchanged.MEDICATIONS: Reviewed in the fpc record. Code status is fullcode.PHYSICAL EXAMINATION: Temperature [...] well controlled since she has been in [facility].2. Seizure disorder. No recent seizure activity. [...] the facility.DICTATED BY: AIDEE López/AcusisD: 018 JOB# [id number]:[facility] Signed by Celina Judd PA-C at 05/18/2017 10:09:27 Normal [facility] PROGRESSon 05-08-2017 PROGRESS HNO ID: [id number]: Fatmata Flanagan ErenService: (none)Author Type: PhysicianType: Progress NotesFiled: 05/09/2017 3:47 PMNote Text: [facility] NOTENAME: PATRICIO GARCIA NO.: [id number] OF SERVICE: 05/08/2017Irina Summers OF : 1950New [...] closely.DICTATED BY: Fatmata Casey MDIAE/AcusisD:05/08/19 18 JOB# [id number]:[place] Normal [facility] Vital Signs Date Time Vital Sign Value Performing Clinician Janes hayes 09-17-2023 11:50-0400 Body temperature 98.2 [degF] Keysha Reynoso MD Work Phone: [facility] 09-17-2023 11:50-0400 Diastolic blood pressure 81 mm[Hg] Keys[facility]oso [facility] 09-17-2023 11:50-0400 Heart rate 76 /min Keysha Reynoso MD Work Phone: [facility] 09-17-2023 11:50-0400 Respiratory rate 18 /min Keyhsa Reynoso MD [facility] 09-17-2023 11:50-0400 SaO2% (BldA) [Mass fraction] 91 % Keysha Reynoso MD Work Phone: [facility] 09-17-2023 11:50-0400 Systolic blood pressure 138 mm[Hg] Keysha Reynoso MD Work Phone: [facility] 09-17-2023 03:00-0400 Body mass index (BMI) [Ratio] 33.34 kg/m2 Keysha Reynoso MD Work Phone: [facility] 09-17-2023 03:00-0400 Body weight 88.1 kg Keysha Reynoso MD Work Phone: [facility] 09-16-2023 10:58-0400 Body height 162.6 cm Keysha Reynoso MD Work Phone: [facility] Encounters Encounter Date Encounter Type Care Provider Facility Start: 05-06-2024 End: 05-06-2024 ambulatory [facility] Facility:[facility] Start: 09-18-2023 End: 09-18-2023 [facility] Start: 09-15-2023 End: 09-18-2023 Emergency department patient visit FRANKO WHITE [facility] Start: 09-15-2023 End: 09-17-2023 [facility] Start: 09-15-2023 End: 09-17-2023 Emergency department patient visit Franko White Work Phone: [address] Comment on above: Foreign body in bron chus, initial encounter (Primary Dx) Start: 09-15-2023 End: 09-18-2023 Emergency department patient visit GERALD BARBER [facility] Start: 08-30-2023 ambulatory DELMA NUNN Facil ity:[facility] Start: 08-30-2023 End: 08-30-2023 ambulatory DELMA NUNN Facility:[facility] Start: 05-31-2023 End: 06-01-2023 ambulatory DELMA NUNN Facility:[facility] Start: 05-31-2023 End: 05-31-2023 Patient encounter procedure DELMA NUNN [facility] Start: 02-14-2022 End: 02-14-2022 ambulatory Austin Head Facility:[facility] Start: 10-25-2021 ambulatory Gerald Fuentes Facilit y:[facility] Start: 09-01-2021 End: 09-06-2021 Evaluation and management of inpatient Services [facility] Facility:[facility] Start: 08-26-2021 End: 08-26-2021 ambulatory Cayla Fitt Other [facility] Other Start: 08-26-2021 Telephone encounter Cayla Fitt [facility] Start: 08-24-2021 End: 08-24-2021 ambulatory Services [facility] Facility:[facility] Start: 08-23-2021 End: 08-25-2021 ambulatory Services [facility] Facility:[facility] Start: 05-11-2021 End: 05-11-2021 ambulatory Cayla Fitt Other [facility] Other Start: 05-11-2021 Telephone encounter Cayla Fitt [facility] Start: 04-20-2021 End: 04-20-2021 ambulatory Cayla Fitt Other [facility] Other Start: 04-20-2021 Telephone encounter Cayla Fitt [facility] Start: 04-12-2021 End: 04-12-2021 ambulatory Cayla Fitt Other [facility] Other Start: 04-12-2021 Telephone encounter Cayla Fitt [facility] Procedures Date Procedure Procedure Detail Performing Clinician Start: 09-17-2023 Radiologic exam swal low function contrast study Amy Montague DO Work Phone: Start: 09-16-2023 AFB CULTURE CONCENTR ATED INCLUDES AFB SMEAR Amy Montague DO Work Phone: Start: 09-16-2023 Cell count misc body fluids w/differential count Amy Montague DO Work Phone: Start: 09-16-2023 FUNGAL CULTURE INCLU MERCEDES FUNGAL SMEAR Amy Montague DO Work Phone: Start: 09-16-2023 LOWER RESP CULTURE S PUTUM CULTURE INC GRAM STAIN Amy Montague DO Work Phone: Start: 09-16-2023 End: 09-16-2023 Brnchsc incl fluor gdnce dx w/cell washg spx Amy Montague DO Work Phone: Start: 09-16-2023 PROVATION BRONCHOSCOPY Amy Montague DO Work Phone: Start: 09-16-2023 Radiologic exam ches t single view Amy Montague DO Work Phone: Start: 09-16-2023 Comprehensive metabolic panel Smita Mesa MD Work Phone: Start: 09-16-2023 PULSE OXIMETRY, SPOT Ra dilan Mesa MD Work Phone: Start: 09-15-2023 Comprehensive metabolic panel [facility] DO Work Phone: Start: 09-15-2023 Ct thorax w/o contra st material [facility] DO Work Phone: Start: 12-31-2018 Echocardiography Plan of Treatment Date Care Activity Detail Author Bacteria identified in Sputum by Respiratory culture Lower resp/sputum culture inc gram stain: Patient acquired Microbiology Routine 09/16/2023 3:08 PM EDT [facility] Cytology Cytology Patholo gy and Cytology Routine Release Upon Ordering for 1 Occurrences starting 09/16/2023 [facility] Work Phone: Comment on above: Release Upon Orderin g for 1 Occurrences starting 09/16/2023 Fungus identified in Unspecified specimen by Culture Fungal culture includes fungal smear Microbiology Routine 09/16/2023 3:08 PM EDT [facility] Mycobacterium sp identified in Unspecified specimen by Organism specific culture AFB culture concentrated includes AFB smear Microbiology Routine 09/16/2023 3:08 PM EDT [facility] Immunizations Immunization Date Immunization Notes Care Provider Fa danilo 02-03-2022 influenza, injectabl e, quadrivalent, contains preservative Keysha Reynoso MD Work Phone: [facility] 01-25-2021 influenza, injectabl e, quadrivalent, contains preservative Keysha Reynoso MD Work Phone: [facility] 12-09-2019 influenza, seasonal, injectable Keysha Reynoso MD Work Phone: [facility] 04-09-2019 pneumococcal polysaccharide vaccine, 23 valent Keysha Reynoso MD Work Phone: [facility] 02-06-2017 influenza, injectabl e, quadrivalent, preservative free Keysha Reynoso MD Work Phone: [facility] 05-10-2016 influenza, injectabl e, quadrivalent, contains preservative Keysha Reynoso MD Work Phone: [facility] 05-10-2016 pneumococcal polysaccharide vaccine, 23 valent Keysha Reynoso MD Work Phone: [facility] Payers Date Payer Category Payer Unknown [id number] 2020 Self-pay 2020 Medicaid MEDICAID [facility] M EDICAID [id number] 2020-Present [phone] [address] [place] [address] [id number] 2020 Medicaid [id number] 2017 Medicare MEDICARE MEDICAR E PART A & B [id number] 2017-Present [phone] [address] [place] [address] [id number] 2017 Medicare [id number] 1950 Unknown [id number] 1950 Unknown [id number] [id number] 1950 Unknown [id number] [id number] 1950 Unknown [id number] [id number] 1950 Unknown [id number] [id number] 1950 Unknown [id number] [id number] 1950 Unknown [id number] [id number] 1950 Unknown [id number] [id number] 1950 Unknown [id number] [id number] Unknown [id number] 2.16.840.1.263071.3.579.2.531 Unknown [id number] [id number] Unknown [id number] 2.16.840.1.144940.3.579.2.531 Unknown [id number] [id number] Unknown [id number] Social History Date Type Detail Facility Start: 05-20-2020 End: 09-16-2023 Sex Assigned At [facility] Tobacco smoking status No Smokin g Status Entered [facility] Start: 04-09-1977 [facility] Start: 04-09-1977 History of tobacco use [facility] Start: 05-20-2020 End: 09-16-2023 Cigarettes smoked current (pack per day) [facility] Start: 09-16-2023 Tobacco use and exposure Smokeless tobacco [facility]-user [facility] Start: 09-17-2023 Alcoholic beverage intake Current drinker of alcohol (finding) [facility] Has the [employer], [employer], [employer], or water company threatened to shut off services in your home in past 12Mo No [employer] Adolescent depressio n screening assessment 2 [facility] Start: 09-16-2023 Alcohol Comment occasionally [facility] Start: 1950 Sex assigned at Not on file [email or web address] Goals Date Patient Goal Desired Activity /State Personal health goal Comment on above: Formatting of this n ote might be different from the original. Evaluation of progress towards goal: patient/ guardian are agreeable for patient to return home. Dave Jeter able to accept patient back. Clinical Notes 09-15-2023 to 09-17-2023 Ashley Lora RCP - 09/17/2023 3:49 PM Brendan Will MD - 09/17/2023 12:59 PM Barbara Reynoso MD - 09/16/2023 1:54 PM EDTDischarge Planning Note - Dilcia Ulloa RN - 09/17/2023 2:44 PM EDT Note Date & Type Note Facility 09-17-2023 History of Present illness Narrative 09/17/23 1549 Patient Reported Home Oxygen Modality Used At Home None (Room air) Home Oxygen Qualification - Resting Method *Complete within 48 Hrs of Discharge SpO2 On Room Air At Rest 94 % Home Oxygen Qualification - Exercise/Ambulation Method SpO2 On Room Air With Exercise/Ambulation 92 % Images from the original note were not included. [facility] PROGRESS NOTE Patient - Jeanmarie Garcia Age - 73 y.o. - 1950 Date of Admission - 09/15/2023 3:51 PM SUBJECTIVE Patient was seen and examined at bedside this morning. Status post bronchoscopy and foreign body retrieval. Patient reports feeling well. Denies chest pain or SOB. OBJECTIVE Vitals Temp: [36.4 C (97.5 F)-36.8 C (98.3 F)] 36.8 C (98.2 F) Pulse: [72-104] 76 Resp: [12-18] 18 BP: (132-165)/(68-99) 138/81 SpO2: [91 %-97 %] 91 % O2 Device: None (Room air) O2 Flow Rate (L/min): [0 L/min-10 L/min] 0 L/min Weight: Admission weight: 88 kg (194 lb 0.1 oz) Wt Readings from Last 3 Encounters: 09/17/23 88.1 kg (194 lb 3.6 oz) Input/Output: Intake/Output Summary (Last 24 hours) at 09/17/2023 1300 Last data filed at 09/17/2023 1100 Gross per 24 hour Intake 890 ml Output 0 ml Net 890 ml Physical Exam General: NAD, Oriented to person, place, and time. HENT: Unremarkable Head: Normocephalic and atraumatic. Eyes: EOM are normal. Pupils are equal, round, and reactive to light. Neck: Neck supple. Cardiovascular: Regular rate and rhythm. Normal S1 and S2. No murmurs. Pulmonary/Chest: Clear to auscultation bilaterally. No crackles or wheezing Abdominal: Soft, non-distended, non-tender. Bowel sounds are normal. Musculoskeletal: No joint swellling. Normal ROM Neurological: Cranial nervers grossly intact Extremities: No edema or rash Lab Results Results from last 7 days Lab Units 09/16/23 0536 09/15/23 1855 WBC X10E9/L 9.8 11.9* HEMOGLOBIN g/dL 12.0 12.3 HEMATOCRIT % 35.8 38.0 PLATELETS X10E9/L 208 229 Results from last 7 days Lab Units 09/15/23 1855 APTT sec 29 INR 1.0 Results from last 7 days Lab Units 09/16/23 0536 09/15/23 1855 SODIUM mmol/L 142 142 POTASSIUM mmol/L 4.0 4.1 CHLORIDE mmol/L 106 105 CO2 mmol/L 28 29 BUN mg/dL 22 25 CREATININE mg/dL 0.99 1.04* CALCIUM mg/dL 8.7 9.1 MAGNESIUM mg/dL -- 2.1 Results from last 7 days Lab Units 09/16/23 0536 09/15/23 1855 ALBUMIN g/dL 3.7 4.0 TOTAL PROTEIN g/dL 6.7 7.5 ALT U/L 16 19 AST U/L 18 16 ALK PHOS U/L 89 97 Results from last 7 days Lab Units 09/16/23 0536 09/15/23 1855 GLUCOSE mg/dL 98 101* No results found for: HGBA1C Results from last 7 days Lab Units 09/15/23 1855 BNP pg/mL 20 No results found for: WBCU , SPECIFICGRA , LEUKOCYTE , NITRITEN , PHNUR , PROTEINNUR , KETONESNUR , UROBILINOGEN , BLOODHGBNU Radiology Fluoroscopy swallow motility function Result Date: 09/17/2023 FL SWALLOW MOTILITY FUNCTION HISTORY: Oropharyngeal dysphagia COMPARISON: None TECHNIQUE: Video fluoroscopic swallow study was performed in conjunction with speech pathologist. Barium contrast materials of varying consistencies administered. FINDINGS: Fluoroscopy time: 55 seconds Reference air kerma: 1.41 mGy Runs: 8 Thin: Penetration with straw. No aspiration with straw. No penetration or aspiration with cup. Applesauce: No penetration or aspiration. Fruit: No penetration or aspiration. Cracker: No penetration or aspiration. Surgical clips overlying the anterior neck. IMPRESSION: 1. Abnormal swallow study as detailed above. 2. Please correlate with dedicated speech pathology report for additional details and recommendations. Approved by Resident Elli Lopez DO on 09/17/2023 9:02 AM Brian Arreaga MD have personally reviewed the image(s) and agree with and/or edited the report Finalized by Brian Baker MD on 09/17/2023 9:06 AM Bronchoscopy Report Result Date: 09/16/2023 This order has been auto-finalized for image and report archival in PACs. *For full report details, please reach out to your physician. This image is visible to you in MyChart.* X-ray chest 1 view Result Date: 09/16/2023 Procedure: Chest x-ray performed Number of views:AP portable upright History:Cough Comparison:None Findings: The heart and lungs show no acute findings, and the mediastinum and maribel are grossly negative . Impression: No acute change. Finalized by Leilani Rizo DO on 09/16/2023 8:[address] chest without contrast Addendum Date: 09/15/2023 *ADDENDUM*Upon targeted retrospective review, small filling defect within bronchus intermedius, measures approximately 6 mm; can be seen with aspiration, inspissated mucous plugging, etc. Finalized by Rui Boswell MD on 09/15/2023 6:40 PM Result Date: 09/15/2023 CLINICAL HISTORY: Aspiration pneumonia. COMPARISON: None. TECHNIQUE: CT chest was performed without the use of IV contrast. Automated exposure control was utilized. FINDINGS: Limited evaluation of the hilar regions and vessels in the absence of IV contrast. LUNG/PLEURA: Probable tracheobronchomalacia. Mosaic attenuation. Bandlike left basilar atelectasis/scarring. No focal consolidation or effusion. No pneumothorax. HEART and GREAT VESSELS: Heart is normal in size. Trace pericardial fluid. Moderate coronary calcification. No pericardial effusion. Ascending aorta measures approximately 3.8 cm on this nondedicated study. MEDIASTINUM and LYMPH NODES: No enlarged axillary or mediastinal lymph nodes. Esophagus is nondilated. UPPER ABDOMEN: Focal soft tissue fullness of the mid pancreatic body. Right hemicolon dilatation up to approximately 7-8 cm. A 3 cm lesion of the left kidney, 30-32 Hounsfield units, indeterminate.. Cholecystectomy. Diastases of the upper rectus. MUSCULOSKELETAL AND LOWER NECK Postsurgical changes of the thyroid. No acute osseous abnormality. IMPRESSION: 1. No focal consolidation or other evidence for aspiration. 2. Partially imaged large bowel dilatation. Equivocal soft tissue fullness in the mid pancreatic body. Indeterminate left renal mass. Short-term CT of the abdomen/pelvis (with contrast) recommended. All CT scans at this facility use dose modulation, iterative reconstruction, and/or weight based dosing when appropriate to reduce radiation dose to as low as reasonably achievable. Finalized by Rui Boswell MD on 09/15/2023 5:47 PM Cultures Microbiology Results Procedure Component Value Units Date/Time Fungal culture includes fungal smear [[id number]] Collected: 09/16/23 1508 Specimen: Bronchial Alveolar Lavage from Lung, Right Middle Lobe Updated: 09/17/23 1057 Lower resp/sputum culture inc gram stain: Patient acquired [[id number]] Collected: 09/16/23 1508 Specimen: Bronchial Alveolar Lavage from Lung, Right Middle Lobe Updated: 09/17/23 1122 AFB culture concentrated includes AFB smear [[id number]] Collected: 09/16/23 1508 Specimen: Bronchial Alveolar Lavage from Lung, Right Middle Lobe Updated: 09/17/23 1039 Medications Scheduled: ampicillin-sulbactam (UNASYN) IV, 3,000 mg, intravenous, Q6H atorvastatin, 10 mg, oral, Nightly benztropine, 0.5 mg, oral, BID cholecalciferol (vitamin D3), 2,000 Units, oral, Daily dapagliflozin propanediol, 10 mg, oral, Daily levothyroxine, 100 mcg, oral, Daily losartan, 50 mg, oral, Daily venlafaxine, 37.5 mg, oral, Daily Infusions: dextrose 5 % in water, 100 mL/hr sodium chloride 0.9 %, 20 mL/hr As Needed: acetaminophen dextrose dextrose 5 % in water dextrose 50 % in water (D50W) glucagon (human recombinant) ondansetron sennosides-docusate sodium sodium chloride sodium chloride sodium chloride 0.9 % ASSESSMENT Acute hypoxic respiratory failure requiring 2 L of nasal cannula likely secondary to foreign body aspiration, resolved Foreign body aspiration status post bronchoscopy on 09/16/2023 with foreign body retrieval Hypertension Active smoker Adjustment disorder DM Hyperlipidemia Hypothyroidism Macroglossia PLAN Video swallow obtained for swallowing dysfunction and patient qualified for level 6 soft and bite sized. Instructions were given by speech therapy. Continue antibiotics for a total of 10 days, Augmentin on discharge. No objection to discharge from pulmonary standpoint. Thank you for allowing us to participate in the care of Jeanmarie Garcia. This progress note was completed using a voice manufacturing quality engineer system. Every effort was made to ensure accuracy. However, inadvertent computerized manufacturing quality engineer errors may be present. Chito Will MD PGY-3 Internal Medicine [facility] 09/17/23 1:00 PM Associated attestation - Amy Montague DO - 09/17/2023 1:53 PM EDT Attestation signed by 1:52 PM PULMONARY/CRITICAL CARE ATTENDING ATTESTATION I have personally and independently examined the patient. I confirm the note and agree with the assessment and plan as documented by the resident. Please note there may be additional comments below. Comments No new issues overnight. Denies fever or cough. Appreciate ST testing and recommendations. Tolerating RA. No objection to discharge to complete 10 days of empiric abx. Can switch unasyn to augmentin. Amy Montague DO. [facility] Pul[facility] and Sleep Pulmonary / Critical Care Pager: [phone] Images from the original note were not included. [facility] Hospitalists Progress Note 09/16/2023 Patient Name: Jeanmarie Garcia : 1950 Hospital Day: 2 Impression and plan: Impression: -acute hypoxic respiratory failure requiring supplemental oxygen via nasal cannula presently on 2 L -foreign body aspiration -reported history of COPD without any acute exacerbation -active tobacco smoker -type 2 diabetes mellitus -hyperlipidemia -hypertension -hypothyroidism -history of adjustment disorder, with depressive mood Plan: -continue supplemental O2 via nasal cannula to maintain SpO2 greater than 92% -continue with Unasyn -noticed planned for bronchoscopy for foreign body retrieval today by pulmonology -initial CT chest showed small filling defect within the bronchus about 6 mm -continue with atorvastatin, for sicca, levothyroxine, losartan -continue with congenital, venlafaxine -given NPO continue with IV fluid -patient will require swallow study with COAL TRAMMER after bronchoscopy -DVT Prophylaxis: Low risk a prolonged stay will continue -GI Prophylaxis: Not indicated -Code Status: Full code Disposition: Bronchoscopy today, will require COAL TRAMMER evaluation afterward, if continues to be on oxygen will require home oxygen evaluation SUBJECTIVE The patient seen and examined. No acute events overnight. Did not produce any foreign body. Denying any chest pain. Reportedly she was having dinner with chicken when she had a choking sensation. Continues to smoke 1-3 cigarettes daily. OBJECTIVE Vital Signs: Temp: [36.2 C (97.2 F)-37.2 C (99 F)] 36.4 C (97.6 F) Pulse: [63-83] 68 Resp: [16-20] 18 BP: (111-150)/(63-117) 150/90 SpO2: [90 %-99 %] 97 % O2 Device: Nasal cannula O2 Flow Rate (L/min): [2 L/min] 2 L/min Weight: Body mass index is 33.3 kg/m . Admission weight: 88 kg (194 lb 0.1 oz) Wt Readings from Last 3 Encounters: 09/16/23 88 kg (194 lb 0.1 oz) Input/Output: No intake or output data in the 24 hours ending 09/16/23 1354 Physical Exam: Physical Exam Constitutional: Appearance: She is obese. HENT: Mouth/Throat: Mouth: Mucous membranes are moist. Cardiovascular: Rate and Rhythm: Normal rate and regular rhythm. Pulmonary: Effort: Pulmonary effort is normal. Abdominal: General: Abdomen is flat. Palpations: Abdomen is soft. Neurological: Mental Status: She is alert. Mental status is at baseline. Labs/Imaging: Recent Results (from the past 24 hour(s)) CBC auto differential Collection Time: 09/15/23 6:55 PM Result Value Ref Range White Blood Cells 11.9 (H) 4.0 - 11.0 X10E9/L RBC count 4.30 3.80 - 5.20 X10E12/L Hemoglobin 12.3 11.7 - 15.5 g/dL Hematocrit 38.0 35 - 47 % MCV 88 80 - 100 fL MCH 28.7 27 - 34 pg MCHC 32.5 32 - 36 g/dL RDW 15.0 11.5 - 15.0 % Platelets 229 150 - 450 X10E9/L MPV 8.2 7 - 12 fL % neutrophils 68.4 % % lymphocytes 20.8 % % monocytes 6.2 % % eosinophils 4.1 % % Basophils 0.5 % Neutrophils Absolute (A) 8.1 (H) 1.5 - 6.6 X10E9/L Lymphocytes Absolute 2.5 1.0 - 3.5 X10E9/L Monocytes Absolute 0.7 0 - 0.9 X10E9/L Eosinophils Absolute 0.5 (H) 0.0 - 0.4 X10E9/L Basophils Absolute 0.1 0.0 - 0.2 X10E9/L Protime & INR Collection Time: 09/15/23 6:55 PM Result Value Ref Range Protime 11.5 9.8 - 13.2 sec Inr 1.0 0.8 - 1.1 APTT Collection Time: 09/15/23 6:55 PM Result Value Ref Range aPTT 29 26 - 37 sec Thyroid profile includes TSH FT4 Collection Time: 09/15/23 6:55 PM Result Value Ref Range TSH 1.26 0.49 - 4.67 uIU/mL T4, free 0.84 0.61 - 1.60 ng/dL Magnesium Collection Time: 09/15/23 6:55 PM Result Value Ref Range Magnesium 2.1 1.8 - 2.6 mg/dL Comprehensive metabolic panel Collection Time: 09/15/23 6:55 PM Result Value Ref Range Sodium 142 134 - 146 mmol/L Potassium, Bld 4.1 3.5 - 5.0 mmol/L Chloride 105 98 - 109 mmol/L CO2 29 22 - 32 mmol/L Anion gap 8 5 - 15 mmol/L BUN 25 5 - 27 mg/dL Creatinine 1.04 (H) 0.40 - 1.00 mg/dL Glucose 101 (H) 65 - 99 mg/dL Calcium 9.1 8.5 - 10.5 mg/dL Total Protein 7.5 6.0 - 8.0 g/dL Albumin 4.0 3.2 - 5.3 g/dL Alkaline Phosphatase 97 39 - 130 U/L AST 16 0 - 41 U/L ALT 19 0 - 31 U/L Total bilirubin 0.4 0.3 - 1.2 mg/dL eGFR (CKD-EPI)non-race dependent 57 (L) >59 ml/min/1.73sq.m Lactate w/ Reflex Collection Time: 09/15/23 6:55 PM Result Value Ref Range Lactate w/ Reflex 0.8 0.4 - 2.0 mmol/L B-type natriuretic peptide Collection Time: 09/15/23 6:55 PM Result Value Ref Range BNP 20 <100.0 pg/mL Comprehensive metabolic panel Collection Time: 09/16/23 5:36 AM Result Value Ref Range Sodium 142 134 - 146 mmol/L Potassium, Bld 4.0 3.5 - 5.0 mmol/L Chloride 106 98 - 109 mmol/L CO2 28 22 - 32 mmol/L Anion gap 8 5 - 15 mmol/L BUN 22 5 - 27 mg/dL Creatinine 0.99 0.40 - 1.00 mg/dL Glucose 98 65 - 99 mg/dL Calcium 8.7 8.5 - 10.5 mg/dL Total Protein 6.7 6.0 - 8.0 g/dL Albumin 3.7 3.2 - 5.3 g/dL Alkaline Phosphatase 89 39 - 130 U/L AST 18 0 - 41 U/L ALT 16 0 - 31 U/L Total bilirubin 0.8 0.3 - 1.2 mg/dL eGFR (CKD-EPI)non-race dependent 61 >59 ml/min/1.73sq.m CBC auto differential Collection Time: 09/16/23 5:36 AM Result Value Ref Range White Blood Cells 9.8 4.0 - 11.0 X10E9/L RBC count 4.07 3.80 - 5.20 X10E12/L Hemoglobin 12.0 11.7 - 15.5 g/dL Hematocrit 35.8 35 - 47 % MCV 88 80 - 100 fL MCH 29.5 27 - 34 pg MCHC 33.5 32 - 36 g/dL RDW 15.1 (H) 11.5 - 15.0 % Platelets 208 150 - 450 X10E9/L MPV 8.0 7 - 12 fL % neutrophils 64.8 % % lymphocytes 21.9 % % monocytes 7.7 % % eosinophils 5.3 % % Basophils 0.3 % Neutrophils Absolute (A) 6.3 1.5 - 6.6 X10E9/L Lymphocytes Absolute 2.1 1.0 - 3.5 X10E9/L Monocytes Absolute 0.8 0 - 0.9 X10E9/L Eosinophils Absolute 0.5 (H) 0.0 - 0.4 X10E9/L Basophils Absolute 0.0 0.0 - 0.2 X10E9/L Microbiology Results No results found for the last 168 hours. X-ray chest 1 view Result Date: 09/16/2023 Procedure: Chest x-ray performed Number of views:AP portable upright History:Cough Comparison:None Findings: The heart and lungs show no acute findings, and the mediastinum and maribel are grossly negative . Impression: No acute change. Finalized by Leilani Rizo DO on 09/16/2023 8:[address] chest without contrast Addendum Date: 09/15/2023 *ADDENDUM*Upon targeted retrospective review, small filling defect within bronchus intermedius, measures approximately 6 mm; can be seen with aspiration, inspissated mucous plugging, etc. Finalized by Rui Boswell MD on 09/15/2023 6:40 PM Result Date: 09/15/2023 CLINICAL HISTORY: Aspiration pneumonia. COMPARISON: None. TECHNIQUE: CT chest was performed without the use of IV contrast. Automated exposure control was utilized. FINDINGS: Limited evaluation of the hilar regions and vessels in the absence of IV contrast. LUNG/PLEURA: Probable tracheobronchomalacia. Mosaic attenuation. Bandlike left basilar atelectasis/scarring. No focal consolidation or effusion. No pneumothorax. HEART and GREAT VESSELS: Heart is normal in size. Trace pericardial fluid. Moderate coronary calcification. No pericardial effusion. Ascending aorta measures approximately 3.8 cm on this nondedicated study. MEDIASTINUM and LYMPH NODES: No enlarged axillary or mediastinal lymph nodes. Esophagus is nondilated. UPPER ABDOMEN: Focal soft tissue fullness of the mid pancreatic body. Right hemicolon dilatation up to approximately 7-8 cm. A 3 cm lesion of the left kidney, 30-32 Hounsfield units, indeterminate.. Cholecystectomy. Diastases of the upper rectus. MUSCULOSKELETAL AND LOWER NECK Postsurgical changes of the thyroid. No acute osseous abnormality. IMPRESSION: 1. No focal consolidation or other evidence for aspiration. 2. Partially imaged large bowel dilatation. Equivocal soft tissue fullness in the mid pancreatic body. Indeterminate left renal mass. Short-term CT of the abdomen/pelvis (with contrast) recommended. All CT scans at this facility use dose modulation, iterative reconstruction, and/or weight based dosing when appropriate to reduce radiation dose to as low as reasonably achievable. Finalized by Rui Boswell MD on 09/15/2023 5:47 PM All available laboratory, imaging, and microbiology data has been personally reviewed in detail, and accessible in full per EMR. Medications: ampicillin-sulbactam (UNASYN) IV, 3,000 mg, intravenous, Q6H atorvastatin, 10 mg, oral, Nightly benztropine, 0.5 mg, oral, BID cholecalciferol (vitamin D3), 2,000 Units, oral, Daily dapagliflozin propanediol, 10 mg, oral, Daily levothyroxine, 100 mcg, oral, Daily losartan, 50 mg, oral, Daily venlafaxine, 37.5 mg, oral, Daily Infusion: dextrose 5 % in water, 100 mL/hr sodium chloride 0.9 %, 20 mL/hr sodium chloride 0.9 %, 75 mL/hr, Last Rate: 75 mL/hr (09/16/23 1242) PRN medications: acetaminophen dextrose dextrose 5 % in water dextrose 50 % in water (D50W) glucagon (human recombinant) ondansetron sennosides-docusate sodium sodium chloride sodium chloride sodium chloride 0.9 % Current care plan discussed in detail with the pt and verbalized understanding. Further management will follow based on the clinical course of the patient and results of ongoing evaluation Electronically signed by: KEYSHA REYNOSO MD 09/16/2023 Disclaimer Note: To increase efficiency, your provider may have prepared this document using voice recognition technology. In that case, if a word or phrase is confusing, or does not make sense, this is likely due to a recognition error within the program which was not discovered during the provider s review. If you believe an error has occurred, please notify your provider s office at your earliest convenience, so we can correct any mistakes. documented in this encounter [facility] 09-17-2023 Progress note Formatting of t his note is different from the original. Images from the original note were not included. DISCHARGE PLANNING NOTE Director Game met with patient, introduced self, and explained role. Patient educated on safe discharge plan. Pt admitted 09/15/2023 with Foreign body in bronchus, initial encounter [T17.508A] per chart review. Past Medical History: Diagnosis Date Anemia Atherosclerotic heart disease of [place] coronary artery without angina pectoris COPD (chronic obstructive pulmonary disease) ([facility] [place]) CVA (cerebral vascular accident) ([facility] [place]) Diabetes mellitus type 2, controlled ([facility] [place]) GERD (gastroesophageal reflux disease) Hyperlipidemia Hypertension Hypothyroidism Major depressive disorder Muscle weakness Non-ischemic cardiomyopathy ([facility] [place]) Obesity Other lack of coordination Other symbolic dysfunctions Schizoaffective disorder ([facility] [place]) Schizophrenia ([facility] [place]) Tremor Unspecified disorder of psychological development Prior to admission patient was living at [facility] in [facility]. Patient reports [facility] staff assists her with all ADLs as needed. [facility] provides all meals and medication administration per patient report. Medical equipment patient used prior to admission includes: Walker - Standard. Patient denies need for transportation/ food/ prescription medication assistance resources. CN contacted [facility], spoke with Alessandra RN, and updated her on anticipated discharge today. Alessandra HAYWARD spoke with [facility] management and they determined they can accept patient back with dysphagia diet and possible home O2- awaiting O2 evaluation. AL requesting transport be arranged home for patient. CN contacted patient's legal guardian, Marah Mae, to confirm discharge planning. Marah agreeable for patient to return to [facility]. Legal guardian information given by [facility] and added to demographics. Requested MD call legal guardian for medical updates. Discharge order is in. Tasked [facility] transport back to [facility] d/t mental diagnoses. Await transport time confirmation. CRF and ST note faxed to [facility] per request. Contacted [facility] and updated RN that patient does not qualify for home O2. AL also informed to transport time- 5pm. PCP: MADHURI REZA DO Pharmacy: [facility] [place], [place] - confirmed pharmacy with Alessandra Hayward from [facility] MADHURI REZA DO added to Follow Up Providers for Summary of Care communication. Current discharge plan is: Discharge home with self care when medically ready Services Requested: Services Requested Discharge Disposition: Assisted Living Assisted Living Name: [facility] Does the patient need discharge transportation arranged?: Yes Transportation Arranged: Ambulance Mobility issues discussed with transportation provider: Yes Patient choice offered: Yes Initial DC Assessment Completed: Yes Goals: Goals Patient Stated return home (pt-stated) Evaluation of progress towards goal: patient/ guardian are agreeable for patient to return home. [facility] able to accept patient back. Will continue to follow as plan of care develops. Please feel free to reach out for any discharge planning questions. - Dilcia Ulloa RN 09/17/23 2:44 PM [facility] 09-17-2023 Miscellaneous Notes Images from the original note were not included. DISCHARGE PLANNING NOTE Director Game met with patient, introduced self, and explained role. Patient educated on safe discharge plan. Pt admitted 09/15/2023 with Foreign body in bronchus, initial encounter [T17.508A] per chart review. Past Medical History: Diagnosis Date Anemia Atherosclerotic heart disease of [place] coronary artery without angina pectoris COPD (chronic obstructive pulmonary disease) ([facility]) CVA (cerebral vascular accident) ([facility]) Diabetes mellitus type 2, controlled ([facility] [place]) GERD (gastroesophageal reflux disease) Hyperlipidemia Hypertension Hypothyroidism Major depressive disorder Muscle weakness Non-ischemic cardiomyopathy ([facility] [place]) Obesity Other lack of coordination Other symbolic dysfunctions Schizoaffective disorder ([facility]) Schizophrenia ([facility] [place] [place]) Tremor Unspecified disorder of psychological development Prior to admission patient was living at [facility] in [facility]. Patient reports [facility] staff assists her with all ADLs as needed. [facility] provides all meals and medication administration per patient report. Medical equipment patient used prior to admission includes: Walker - Standard. Patient denies need for transportation/ food/ prescription medication assistance resources. CN contacted [facility], spoke with Alessandra HAYWARD, and updated her on anticipated discharge today. Alessandra RN spoke with [facility] management and they determined they can accept patient back with dysphagia diet and possible home O2- awaiting O2 evaluation. AL requesting transport be arranged home for patient. CN contacted patient's legal guardian, Marah Mae, to confirm discharge planning. Marah agreeable for patient to return to [facility]. Legal guardian information given by NE and added to demographics. Requested MD call legal guardian for medical updates. Discharge order is in. Tasked [facility] transport back to [facility] d/t mental diagnoses. Await transport time confirmation. CRF and ST note faxed to [facility] per request. Contacted [facility] and updated RN that patient does not qualify for home O2. AL also informed to transport time- 5pm. PCP: MADHRUI REZA DO Pharmacy: [facility] [place], [place] - confirmed pharmacy with Alessandra Hayward from [facility] MADHURI J VASCHAK, DO added to Follow Up Providers for Summary of Care communication. Current discharge plan is: Discharge home with self care when medically ready Services Requested: Services Requested Discharge Disposition: Assisted Living Assisted Living Name: [facility] Does the patient need discharge transportation arranged?: Yes Transportation Arranged: Ambulance Mobility issues discussed with transportation provider: Yes Patient choice offered: Yes Initial DC Assessment Completed: Yes Goals: Goals Patient Stated return home (pt-stated) Evaluation of progress towards goal: patient/ guardian are agreeable for patient to return home. [facility] able to accept patient back. Will continue to follow as plan of care develops. Please feel free to reach out for any discharge planning questions. - Dilcia Ulloa RN 09/17/23 2:44 PM DISCHARGE PLANNING NOTE BLS to [facility] at 5 PM. Confirmed in [facility]. Problem: Pain Goal: Patient goal is pain score less than 4, able to rest, and participant in treatment plan as appropriate Description: INTERVENTIONS: 1. Encourage patient or legal pharmaceutical sales representative to report early pain and ask for pain medicine when needed 2. Assess pain using appropriate pain scale and include the scale used when documenting 3. Administer analgesics based on type and severity of pain and evaluate response within appropriate time frame 4. Implement non-pharmacological measures as appropriate and evaluate response 5. Consider cultural and social influences on pain and pain management 6. Notify LIP if interventions ineffective or patient reports new pain 7. Monitor vital signs including pulse ox, end-tidal CO2 based on pain intervention 8. Reassess pain per policy 9. Teach patient or legal pharmaceutical sales representative interventions for comforting Outcome: Progressing Note: Evaluation of progress towards goal: Denies pain, knows to notify when in pain. Problem: Safety Goal: Patient will be injury free during hospitalization Description: INTERVENTIONS: 1. Assess patient's risk for falls and implement fall prevention plan of care per policy 2. Provide and maintain a safe environment 3. Proper use of double Identifiers 4. Medication administration using the 5 rights 5. Hand hygiene 6. Specimens are labeled at the bedside 7. Instruct patient/ patient pharmaceutical sales representative about use of safety devices 8. Include patient/ patient pharmaceutical sales representative in decisions related to safety Outcome: Progressing Note: Evaluation of progress towards goal: Monitoring safety, knows to call when needing assistance, personal items and call light are within reach. Problem: Infection Goal: Absence of infection during hospitalization Description: Interventions: 1. Assess and monitor for signs and symptoms of infection 2. Monitor lab/diagnostic results 3. Monitor all insertion sites i.e., indwelling lines, tubes and drains 4. Monitor endotracheal (as able) and nasal secretions for changes in amount and color 5. Administer medications as ordered 6. Instruct and encourage patient and family to use good hand hygiene technique 7. Identify and instruct patient/patient pharmaceutical sales representative in use of appropriate isolation precautions for identified infection/symptoms 8. Provide and discuss with patient/patient pharmaceutical sales representative on educational MDRO sheet 9. Encourage and monitor nutritional status daily and consult meal temperer if indicated 10. Implement neutropenic guidelines as needed 11. Review exposure to history of communicable disease and recent travel history on admission 12. Encourage annual influenza vaccine 13. Encourage pneumonia vaccine Outcome: Progressing Note: Evaluation of progress towards goal: On antibiotics, monitoring for increased signs and symptoms of infection. Problem: Knowledge Deficit Goal: Patient/patient pharmaceutical sales representative demonstrates understanding of disease process, treatment plan, medications, and discharge instructions Description: INTERVENTIONS 1. Complete learning assessment and assess knowledge base 2. Provide teaching at level of understanding 3. Provide teaching via preferred learning method(s) Outcome: Progressing Note: Evaluation of progress towards goal: Is understanding of the treatment plan. Problem: Discharge Planning Goal: Discharge to post-acute care, other facility, or home with appropriate resources Description: Patient's goal is: INTERVENTIONS 1. Conduct assessment to determine patient/family and health care team treatment goals, and need for post-acute services based on payer coverage, community resources, and patient preferences, and barriers to discharge 2. Coordinate with Social work, Care Navigation, and Utilization Review to arrange appropriate level of services according to patient's needs based on patient preference and payer coverage in collaboration with the physician and health care team 3. Address psychosocial, clinical, and financial barriers to discharge as identified in assessment in conjunction with the patient/family and health care team 4. Consult appropriate ancillary services (i.e.. PT/OT/ST, etc) as needed 5. Communicate with and update the patient/family, physician, and health care team regarding progress on the discharge plan 6. Identify discharge learning needs (meds, wound care, etc). 7. Arrange for needed discharge transportation as appropriate Outcome: Progressing Note: Evaluation of progress towards goal: Needs reenforcement of the treatment plan. Problem: Moderate - High Risk Fall Score Description: Ferrer Fall Score of =/> 25 or indicated by [facility] Assessment Goal: Patient should be free from fall Description: Interventions: 1. [place] to environment 2. Hourly rounds addressing the 4 P's (Pain, Positioning, Possessions, Potty) 3. Clear area of hazards (spills, clutter, electrical cords, unnecessary equipment) 4. Place equipment (bed & TV controls, call light, phone, urinal) within reach 5. Encourage patient to wear glasses and hearing aides as appropriate 6. Maintain bed in lowest position 7. Lock wheels on bed/wheelchair 8. Provide adequate lighting, including night light 9. Assess need for additional bedding, food/fluids, pain med's prior to sleep/routinely 10. Provide gripper slippers or personal non-skid footwear 11. Teach patient and patient pharmaceutical sales representative to maintain environment for safety and engage in all aspects of fall prevention program 12. Remind patient to call for help before getting out of bed 13. Initiate bed/chair/exit alarms supportive devices as appropriate, (chair wedge, no-skid floor mat, raised edge mattress, hip protectors) 14. Locate patient bed assignment for optimal visualization 15. Evaluate and identify Safe Patient Handling Equipment needs 16. Provide supervision when out of bed or chair 17. Utilize gait belt as needed to assist with ambulation 18. Place adaptive equipment (cane, walker) within reach 19. Request patient pharmaceutical sales representative bring adaptive equipment/mobility aids from home or obtain and provide as needed 20. Consult pharmacy regarding effects of med's affecting mobility, cognition, and alternatives 21. Obtain physician order for PT if risk factors associated with mobility are present 22. Obtain physician order for OT as appropriate 23. Utilize diversional activities 24. Educate patient and patient pharmaceutical sales representative how to maintain a safe environment during visitation times (notify nurse prior to leaving bedside) 25. Consider appropriateness of medical or non-medical reception 26. Set up voiding schedule as appropriate (every 2 hours) Outcome: Progressing Note: Evaluation of progress towards goal: Fall risk, up with stand by assist, knows to call when needing assistance, personal items and call light are within reach. Problem: Glucose Imbalance Goal: Clinical indication of glucose balance is achieved Description: Patient's goal is: INTERVENTIONS 1. Monitor blood glucose levels as ordered 2. Administer medications as ordered 3. Notify physician of ineffective treatment plan Outcome: Progressing Note: Evaluation of progress towards goal: Monitoring blood sugars Goal: Patient's discharge needs are met Description: Patient's goal is: INTERVENTIONS 1. Assess patient for self-management skills 2. Encourage participation in diabetes management 3. Identify potential discharge barriers on admission and throughout hospital stay 4. Involve patient/S.O. in discharge planning process 5. Communicate referral to clinical research management associate as appropriate 6. Communicate referral to meal temperer as appropriate 7. Collaborate with case management/outreach and education social worker for discharge needs Outcome: Progressing Note: Evaluation of progress towards goal: Monitoring blood sugars BLOOD MANAGEMENT (BLOODLESS CARE) Patient has been admitted to the Bloodless Care Program. I rounded on patient and completed blood refusal consent. Provided education on blood alternatives available to pt. Pt declined all bloodless are patient choices. We have received the following papers: Blood refusal consent Please Note: Patient refuses all blood transfusions under any circumstances and All NO BLOOD indicators are in place Bloodless Care Patient Choices: Patient declined all minor fractions and procedures involving her own blood. Lab Results Component Value Date HGB 12.0 09/16/2023 Thank you for the opportunity to assist in the care of your patient. Please feel free to contact us with any questions or concerns. [facility] Blood Management/ Bloodless Care [facility] [address] [place] [address] Office: [phone] Problem: Pain Goal: Patient goal is pain score less than 4, able to rest, and participant in treatment plan as appropriate Description: INTERVENTIONS: 1. Encourage patient or legal pharmaceutical sales representative to report early pain and ask for pain medicine when needed 2. Assess pain using appropriate pain scale and include the scale used when documenting 3. Administer analgesics based on type and severity of pain and evaluate response within appropriate time frame 4. Implement non-pharmacological measures as appropriate and evaluate response 5. Consider cultural and social influences on pain and pain management 6. Notify LIP if interventions ineffective or patient reports new pain 7. Monitor vital signs including pulse ox, end-tidal CO2 based on pain intervention 8. Reassess pain per policy 9. Teach patient or legal pharmaceutical sales representative interventions for comforting Outcome: Progressing Note: Evaluation of progress towards goal: pain management Problem: Safety Goal: Patient will be injury free during hospitalization Description: INTERVENTIONS: 1. Assess patient's risk for falls and implement fall prevention plan of care per policy 2. Provide and maintain a safe environment 3. Proper use of double Identifiers 4. Medication administration using the 5 rights 5. Hand hygiene 6. Specimens are labeled at the bedside 7. Instruct patient/ patient pharmaceutical sales representative about use of safety devices 8. Include patient/ patient pharmaceutical sales representative in decisions related to safety Outcome: Progressing Note: Evaluation of progress towards goal: injury prevention Problem: Infection Goal: Absence of infection during hospitalization Description: Interventions: 1. Assess and monitor for signs and symptoms of infection 2. Monitor lab/diagnostic results 3. Monitor all insertion sites i.e., indwelling lines, tubes and drains 4. Monitor endotracheal (as able) and nasal secretions for changes in amount and color 5. Administer medications as ordered 6. Instruct and encourage patient and family to use good hand hygiene technique 7. Identify and instruct patient/patient pharmaceutical sales representative in use of appropriate isolation precautions for identified infection/symptoms 8. Provide and discuss with patient/patient pharmaceutical sales representative on educational MDRO sheet 9. Encourage and monitor nutritional status daily and consult meal temperer if indicated 10. Implement neutropenic guidelines as needed 11. Review exposure to history of communicable disease and recent travel history on admission 12. Encourage annual influenza vaccine 13. Encourage pneumonia vaccine Outcome: Progressing Note: Evaluation of progress towards goal: infection prevention Problem: Knowledge Deficit Goal: Patient/patient pharmaceutical sales representative demonstrates understanding of disease process, treatment plan, medications, and discharge instructions Description: INTERVENTIONS 1. Complete learning assessment and assess knowledge base 2. Provide teaching at level of understanding 3. Provide teaching via preferred learning method(s) Outcome: Progressing Note: Evaluation of progress towards goal: gen knowledge Problem: Pain Goal: Patient goal is pain score less than 4, able to rest, and participant in treatment plan as appropriate Description: INTERVENTIONS: 1. Encourage patient or legal pharmaceutical sales representative to report early pain and ask for pain medicine when needed 2. Assess pain using appropriate pain scale and include the scale used when documenting 3. Administer analgesics based on type and severity of pain and evaluate response within appropriate time frame 4. Implement non-pharmacological measures as appropriate and evaluate response 5. Consider cultural and social influences on pain and pain management 6. Notify LIP if interventions ineffective or patient reports new pain 7. Monitor vital signs including pulse ox, end-tidal CO2 based on pain intervention 8. Reassess pain per policy 9. Teach patient or legal pharmaceutical sales representative interventions for comforting Outcome: Progressing Note: Evaluation of progress towards goal: no complaints of pain Problem: Safety Goal: Patient will be injury free during hospitalization Description: INTERVENTIONS: 1. Assess patient's risk for falls and implement fall prevention plan of care per policy 2. Provide and maintain a safe environment 3. Proper use of double Identifiers 4. Medication administration using the 5 rights 5. Hand hygiene 6. Specimens are labeled at the bedside 7. Instruct patient/ patient pharmaceutical sales representative about use of safety devices 8. Include patient/ patient pharmaceutical sales representative in decisions related to safety Outcome: Progressing Note: Evaluation of progress towards goal: safety maintained, uses call light appropriately Problem: Knowledge Deficit Goal: Patient/patient pharmaceutical sales representative demonstrates understanding of disease process, treatment plan, medications, and discharge instructions Description: INTERVENTIONS 1. Complete learning assessment and assess knowledge base 2. Provide teaching at level of understanding 3. Provide teaching via preferred learning method(s) Outcome: Progressing Note: Evaluation of progress towards goal: bronch complete, monitor swallowing Images from the original note were not included. Bronchoscopy with Bronchoalveolar Lavage and Foreign Body Removal Dr. Amy Montague DO. Procedure Performed: Bronchoscopy with airway survey and bronchoalveolar lavage Removal of foreign body bronchus intermedius with aspiration Date of Procedure: 09/16/23 Indication: Foreign body Pre-op Diagnosis: Aspiration of foreign body bronchus intermedius Choking episode Post-op Diagnosis: Aspiration of foreign body bronchus intermedius (green pea) Choking episode Assist: None Anesthesia: General anesthesia. Please see their records. Indications and History The patient is a 73 y.o. female with a history of HTN, depression and hypothyroidism who presented to the ER after choking episode. Patient was hypoxic and did not cough out food that she choked on. Reportedly patient was eating chicken. CT chest revealed evidence of foreign body in the bronchus intermedius. Patient required 2L of oxygen. ASA Grade: ASA 2 - Patient with mild systemic disease with no functional limitations Consent to Procedure The risks, benefits, complications, treatment options and expected outcomes were discussed with the patient. The possibilities of reaction to medication, pulmonary aspiration, perforation of a viscus, bleeding, failure to diagnose a condition and creating a complication requiring transfusion or operation were discussed with the patient who freely signed the consent. Description of Procedure The patient was brought to the endoscopy suite, identified as Jeanmarie George Garcia and the procedure verified as Flexible Fiberoptic Bronchoscopy. A Time Out was held and the above information confirmed. The patient was monitored with non-invasive blood pressure monitoring, pulse oximetry, and continuous ECG. Patient underwent anesthesia and intubation with ET tube as per anesthesia department. Once patient intubated, the bronchoscope was inserted into the endotracheal tube. Immediately there was visualized an obstructive body in the bronchus intermedius. Suction at end of the scope was applied and foreign body was able to slowly be withdrawn through the ET tube. Once FB removed it was able to be identified as a green pea. The bronchoscope was then reinserted and complete airway inspection was performed. After careful inspection of the trachea and adan, the bronchoscope was sequentially passed into all segments of the left and right endobronchial trees to the second and/or third divisions. No other abnormal lesions or foreign bodies seen. BAL was then collected from the RML with insertion of the scoe into the segment of the RML. A total of 80cc of saline was then instilled and aspirate back of 18cc in specimen collection for BAL. Bronchoscope was then removed and procedure completed. Patient was extubated and recovered as per anesthesia department. Endobronchial findings: Trachea: relatively normal with no significant lesion. Adan: Sharp and mobile with no mass. Right and left endobronchial trees: The endobronchial survey was significant for No mass No bleeding No inflammation Green pea in bronchus intermedius No significant bronchomalcia No mucous plugging Complications None Specimens Taken BAL - RML 18cc Foreign body removed bronchus intermedius: green pea The patient was taken to the Endoscopy Recovery area in satisfactory condition. Recommendations Return to medical floor Continue antibiotics for 10 days. Speech therapy evaluation and video swallow. Discharge planning. Dr. Amy Montague DO. [facility] Office: [phone] Roy last evening. Discussed with RN this am. Patient on 2L with saturations in 90s. No distress. Did not produce foreign body overnight. Still inspiratory wheeze right mid lung field on exam. CXR this am pending CT chest 09/14 still with retained foreign body present. (Reportedly chicken) Macroglossia on exam. Will need video swallow prior to discharge. Continue Unasyn Patient denies on blood thinners at home or known cardiac or pulmonary disease. Active smoker. Case requested for endoscopy today for foreign body retrieval. Await timing. Full consult to follow Dr. Amy Montague DO. [facility] Office: [phone] with ER staff. Agree there is an obstructing lesion in the right BI. Will keep NPO after MN, remain on 2L, start unasyn and request our hospitalist team evaluate tonight and review if and additional clearance needed (cardiology)/ labs prior to anesthesia for bronch. Discussed with Dr. Montague ICU that will possibly bronch tomorrow if patient does not expectorate on her own tonight. documented in this encounter [facility] 09-17-2023 Hospital course Narrative Images from the original note were not included. [facility]- Hospital Medicine Discharge Summary Patient's Name: Jeanmarie Garcia Date of : 1950 Age: 73 yrs Gender: female PCP: Patient Care Team: Madhuri Reza DO as PCP - General DATE OF ADMISSION: 09/15/2023 DATE OF DISCHARGE: 09/17/2023 DISCHARGE DIAGNOSES: Active Hospital Problems Diagnosis Date Noted Date Diagnosed Foreign body in bronchus, initial encounter 09/15/2023 Resolved Problems No resolved problems to display. CONSULTANTS: Consulting Providers Provider Service Specialty Neha Roy MD -- Pulmonary Medicine Things needing follow up: - follow-up with primary care physician Hospital Course Jeanmarie Young a 73 y.o.female who was admitted for Shortness of breath. Patient was having dinner where she choked on her food and presented to ED with acute hypoxic respiratory failure requiring supplemental oxygen via nasal cannula. Overall lab works were largely unremarkable. CT chest showed small filling defect within the bronchus about 6 mm. Patient was unable to cough out the foreign body by herself. Pulmonology evaluated patient, underwent bronchoscopy with foreign body retrieval on 09/15. Post bronchoscopy patient's respiratory status improved significantly. She received IV Unasyn while inpatient which was changed to Augmentin for total of 10 days. A video swallow study was obtained and patient qualified for level sick soft and bite size diet. Also home oxygen evaluation done which did not qualify for. Patient was discharged back to her assisted living facility at a stable condition. Have also informed her legal guardian Marah Mae phone # [phone] over the phone regarding overall plan. Discharge Medications: Medication List START taking these medications Instructions Last Dose Given Next Dose Due amoxicillin-pot clavulanate 875-125 mg per tablet Commonly known as: AUGMENTIN Take 1 tablet by mouth every 12 (twelve) hours for 8 days. CONTINUE taking these medications Instructions Last Dose Given Next Dose Due atorvastatin 10 mg tablet Commonly known as: LIPITOR Take 1 tablet (10 mg total) by mouth once daily at bedtime. benztropine 0.5 mg tablet Commonly known as: COGENTIN Take 1 tablet (0.5 mg total) by mouth in the morning and 1 tablet (0.5 mg total) before bedtime. cholecalciferol (vitamin D3) 2,000 units capsule Take 1 capsule (2,000 Units total) by mouth in the morning. dapagliflozin propanediol 10 mg tablet Commonly known as: FARXIGA Take 1 tablet (10 mg total) by mouth in the morning. finerenone 10 mg tablet Take 10 mg by mouth in the morning. levothyroxine 100 MCG tablet Commonly known as: SYNTHROID, LEVOTHROID Take 1 tablet (100 mcg total) by mouth in the morning. losartan 50 mg tablet Commonly known as: COZAAR Take 1 tablet (50 mg total) by mouth in the morning and 1 tablet (50 mg total) before bedtime. ondansetron 4 mg tablet Commonly known as: ZOFRAN Take 1 tablet (4 mg total) by mouth daily as needed for nausea or vomiting. venlafaxine 37.5 mg tablet Commonly known as: EFFEXOR Take 1 tablet (37.5 mg total) by mouth in the morning. Where to Get Your Medications These medications were sent to [facility] of [address] [address] [address] amoxicillin-pot clavulanate 875-125 mg per tablet For most accurate medication list, please review the discharge medication summary. DISCHARGE EXAM: Vitals: 09/17/23 1150 BP: 138/81 Pulse: 76 Resp: 18 Temp: 36.8 C (98.2 F) SpO2: 91% General appearance: alert, in no acute distress Skin: No rash, no erythema Lungs: Nonlabored respiration, no wheezing Heart: RRR, No ectopy Abdomen: Abdomen soft, non-tender. Extremities: No edema, no swelling or erythema. Neuro: AAOx3, non-focal Labs: Recent Results (from the past 48 hour(s)) CBC auto differential Collection Time: 09/15/23 6:55 PM Result Value Ref Range White Blood Cells 11.9 (H) 4.0 - 11.0 X10E9/L RBC count 4.30 3.80 - 5.20 X10E12/L Hemoglobin 12.3 11.7 - 15.5 g/dL Hematocrit 38.0 35 - 47 % MCV 88 80 - 100 fL MCH 28.7 27 - 34 pg MCHC 32.5 32 - 36 g/dL RDW 15.0 11.5 - 15.0 % Platelets 229 150 - 450 X10E9/L MPV 8.2 7 - 12 fL % neutrophils 68.4 % % lymphocytes 20.8 % % monocytes 6.2 % % eosinophils 4.1 % % Basophils 0.5 % Neutrophils Absolute (A) 8.1 (H) 1.5 - 6.6 X10E9/L Lymphocytes Absolute 2.5 1.0 - 3.5 X10E9/L Monocytes Absolute 0.7 0 - 0.9 X10E9/L Eosinophils Absolute 0.5 (H) 0.0 - 0.4 X10E9/L Basophils Absolute 0.1 0.0 - 0.2 X10E9/L Protime & INR Collection Time: 09/15/23 6:55 PM Result Value Ref Range Protime 11.5 9.8 - 13.2 sec Inr 1.0 0.8 - 1.1 APTT Collection Time: 09/15/23 6:55 PM Result Value Ref Range aPTT 29 26 - 37 sec Thyroid profile includes TSH FT4 Collection Time: 09/15/23 6:55 PM Result Value Ref Range TSH 1.26 0.49 - 4.67 uIU/mL T4, free 0.84 0.61 - 1.60 ng/dL Magnesium Collection Time: 09/15/23 6:55 PM Result Value Ref Range Magnesium 2.1 1.8 - 2.6 mg/dL Comprehensive metabolic panel Collection Time: 09/15/23 6:55 PM Result Value Ref Range Sodium 142 134 - 146 mmol/L Potassium, Bld 4.1 3.5 - 5.0 mmol/L Chloride 105 98 - 109 mmol/L CO2 29 22 - 32 mmol/L Anion gap 8 5 - 15 mmol/L BUN 25 5 - 27 mg/dL Creatinine 1.04 (H) 0.40 - 1.00 mg/dL Glucose 101 (H) 65 - 99 mg/dL Calcium 9.1 8.5 - 10.5 mg/dL Total Protein 7.5 6.0 - 8.0 g/dL Albumin 4.0 3.2 - 5.3 g/dL Alkaline Phosphatase 97 39 - 130 U/L AST 16 0 - 41 U/L ALT 19 0 - 31 U/L Total bilirubin 0.4 0.3 - 1.2 mg/dL eGFR (CKD-EPI)non-race dependent 57 (L) >59 ml/min/1.73sq.m Lactate w/ Reflex Collection Time: 09/15/23 6:55 PM Result Value Ref Range Lactate w/ Reflex 0.8 0.4 - 2.0 mmol/L B-type natriuretic peptide Collection Time: 09/15/23 6:55 PM Result Value Ref Range BNP 20 <100.0 pg/mL Comprehensive metabolic panel Collection Time: 09/16/23 5:36 AM Result Value Ref Range Sodium 142 134 - 146 mmol/L Potassium, Bld 4.0 3.5 - 5.0 mmol/L Chloride 106 98 - 109 mmol/L CO2 28 22 - 32 mmol/L Anion gap 8 5 - 15 mmol/L BUN 22 5 - 27 mg/dL Creatinine 0.99 0.40 - 1.00 mg/dL Glucose 98 65 - 99 mg/dL Calcium 8.7 8.5 - 10.5 mg/dL Total Protein 6.7 6.0 - 8.0 g/dL Albumin 3.7 3.2 - 5.3 g/dL Alkaline Phosphatase 89 39 - 130 U/L AST 18 0 - 41 U/L ALT 16 0 - 31 U/L Total bilirubin 0.8 0.3 - 1.2 mg/dL eGFR (CKD-EPI)non-race dependent 61 >59 ml/min/1.73sq.m CBC auto differential Collection Time: 09/16/23 5:36 AM Result Value Ref Range White Blood Cells 9.8 4.0 - 11.0 X10E9/L RBC count 4.07 3.80 - 5.20 X10E12/L Hemoglobin 12.0 11.7 - 15.5 g/dL Hematocrit 35.8 35 - 47 % MCV 88 80 - 100 fL MCH 29.5 27 - 34 pg MCHC 33.5 32 - 36 g/dL RDW 15.1 (H) 11.5 - 15.0 % Platelets 208 150 - 450 X10E9/L MPV 8.0 7 - 12 fL % neutrophils 64.8 % % lymphocytes 21.9 % % monocytes 7.7 % % eosinophils 5.3 % % Basophils 0.3 % Neutrophils Absolute (A) 6.3 1.5 - 6.6 X10E9/L Lymphocytes Absolute 2.1 1.0 - 3.5 X10E9/L Monocytes Absolute 0.8 0 - 0.9 X10E9/L Eosinophils Absolute 0.5 (H) 0.0 - 0.4 X10E9/L Basophils Absolute 0.0 0.0 - 0.2 X10E9/L Body Fluid cell count with differential Collection Time: 09/16/23 3:08 PM Result Value Ref Range Specimen type BRONCHOALVEOLAR LAVAGE Fluid neutrophils 98 % Macrophages 2 % Nucleated cell ct 41 /uL Fluid RBC 1 /uL Fluid color COLORLESS Fluid clarity CLEAR Body fluid comment Interpretation------ -- Lower resp/sputum culture inc gram stain: Patient acquired Collection Time: 09/16/23 3:08 PM Specimen: Lung, Right Middle Lobe; Bronchial Alveolar Lavage LUNG RT MIDDLE LOBE Result Value Ref Range Gram Stain Result 1 to 9 WHITE BLOOD CELLS/LPF Gram Stain Result 0 to 1 SQUAMOUS EPITHELIAL CELLS/LPF Gram Stain Result 0 CILIATED EPITHELIAL CELLS/LPF Gram Stain Result NO ORGANISMS SEEN Culture PENDING Radiology: Fluoroscopy swallow motility function Result Date: 09/17/2023 FL SWALLOW MOTILITY FUNCTION HISTORY: Oropharyngeal dysphagia COMPARISON: None TECHNIQUE: Video fluoroscopic swallow study was performed in conjunction with speech pathologist. Barium contrast materials of varying consistencies administered. FINDINGS: Fluoroscopy time: 55 seconds Reference air kerma: 1.41 mGy Runs: 8 Thin: Penetration with straw. No aspiration with straw. No penetration or aspiration with cup. Applesauce: No penetration or aspiration. Fruit: No penetration or aspiration. Cracker: No penetration or aspiration. Surgical clips overlying the anterior neck. IMPRESSION: 1. Abnormal swallow study as detailed above. 2. Please correlate with dedicated speech pathology report for additional details and recommendations. Approved by Resident Elli Lopez DO on 09/17/2023 9:02 AM IBrian MD have personally reviewed the image(s) and agree with and/or edited the report Finalized by Brian Baker MD on 09/17/2023 9:06 AM Bronchoscopy Report Result Date: 09/16/2023 This order has been auto-finalized for image and report archival in PACs. *For full report details, please reach out to your physician. This image is visible to you in MyChart.* Discharge Instructions Disposition: Discharge to Home Condition: Stable Activity: activity as tolerated Diet: Adult diet Level 6 Soft and Bite Sized diet Madhuri Reza DO [address] [facility] [id number] Information Provided to the Patient: Patient given copy of Discharge Instructions, patient hospital stay was discussed. No special instructions. I have spent 35 minutes coordinating and preparing this discharge. I have discussed the patient's hospitalization course, treatment plan and follow up instructions with patient. I have answered all the patient's questions. Electronically signed by: KEYSHA REYNOSO MD [facility], Department of Internal Medicine 09/17/23 2:42 PM This note was partially dictated with the use of M*Modal.Please note that this dictation was completed with computer voice recognition software. Quite often unanticipated grammatical, syntax, homophones, and other interpretive errors are inadvertently transcribed by the computer software. Please disregard these errors. Please excuse any errors that have escaped final proofreading documented in this encounter [facility] 09-17-2023 Progress note Formatting of t his note might be different from the original. DISCHARGE PLANNING NOTE BLS to Dave SINGH at 5 PM. Confirmed in [facility]. [facility] 09-17-2023 Plan of care note Problem: Pain Goal: Patient goal is pain score less than 4, able to rest, and participant in treatment plan as appropriate Description: INTERVENTIONS: 1. Encourage patient or legal pharmaceutical sales representative to report early pain and ask for pain medicine when needed 2. Assess pain using appropriate pain scale and include the scale used when documenting 3. Administer analgesics based on type and severity of pain and evaluate response within appropriate time frame 4. Implement non-pharmacological measures as appropriate and evaluate response 5. Consider cultural and social influences on pain and pain management 6. Notify LIP if interventions ineffective or patient reports new pain 7. Monitor vital signs including pulse ox, end-tidal CO2 based on pain intervention 8. Reassess pain per policy 9. Teach patient or legal pharmaceutical sales representative interventions for comforting Outcome: Progressing Note: Evaluation of progress towards goal: Denies pain, knows to notify when in pain. Problem: Safety Goal: Patient will be injury free during hospitalization Description: INTERVENTIONS: 1. Assess patient's risk for falls and implement fall prevention plan of care per policy 2. Provide and maintain a safe environment 3. Proper use of double Identifiers 4. Medication administration using the 5 rights 5. Hand hygiene 6. Specimens are labeled at the bedside 7. Instruct patient/ patient pharmaceutical sales representative about use of safety devices 8. Include patient/ patient pharmaceutical sales representative in decisions related to safety Outcome: Progressing Note: Evaluation of progress towards goal: Monitoring safety, knows to call when needing assistance, personal items and call light are within reach. Problem: Infection Goal: Absence of infection during hospitalization Description: Interventions: 1. Assess and monitor for signs and symptoms of infection 2. Monitor lab/diagnostic results 3. Monitor all insertion sites i.e., indwelling lines, tubes and drains 4. Monitor endotracheal (as able) and nasal secretions for changes in amount and color 5. Administer medications as ordered 6. Instruct and encourage patient and family to use good hand hygiene technique 7. Identify and instruct patient/patient pharmaceutical sales representative in use of appropriate isolation precautions for identified infection/symptoms 8. Provide and discuss with patient/patient pharmaceutical sales representative on educational MDRO sheet 9. Encourage and monitor nutritional status daily and consult meal temperer if indicated 10. Implement neutropenic guidelines as needed 11. Review exposure to history of communicable disease and recent travel history on admission 12. Encourage annual influenza vaccine 13. Encourage pneumonia vaccine Outcome: Progressing Note: Evaluation of progress towards goal: On antibiotics, monitoring for increased signs and symptoms of infection. Problem: Knowledge Deficit Goal: Patient/patient pharmaceutical sales representative demonstrates understanding of disease process, treatment plan, medications, and discharge instructions Description: INTERVENTIONS 1. Complete learning assessment and assess knowledge base 2. Provide teaching at level of understanding 3. Provide teaching via preferred learning method(s) Outcome: Progressing Note: Evaluation of progress towards goal: Is understanding of the treatment plan. Problem: Discharge Planning Goal: Discharge to post-acute care, other facility, or home with appropriate resources Description: Patient's goal is: INTERVENTIONS 1. Conduct assessment to determine patient/family and health care team treatment goals, and need for post-acute services based on payer coverage, community resources, and patient preferences, and barriers to discharge 2. Coordinate with Social work, Care Navigation, and Utilization Review to arrange appropriate level of services according to patient's needs based on patient preference and payer coverage in collaboration with the physician and health care team 3. Address psychosocial, clinical, and financial barriers to discharge as identified in assessment in conjunction with the patient/family and health care team 4. Consult appropriate ancillary services (i.e.. PT/OT/ST, etc) as needed 5. Communicate with and update the patient/family, physician, and health care team regarding progress on the discharge plan 6. Identify discharge learning needs (meds, wound care, etc). 7. Arrange for needed discharge transportation as appropriate Outcome: Progressing Note: Evaluation of progress towards goal: Needs reenforcement of the treatment plan. Problem: Moderate - High Risk Fall Score Description: Ferrer Fall Score of =/> 25 or indicated by [facility] Assessment Goal: Patient should be free from fall Description: Interventions: 1. [place] to environment 2. Hourly rounds addressing the 4 P's (Pain, Positioning, Possessions, Potty) 3. Clear area of hazards (spills, clutter, electrical cords, unnecessary equipment) 4. Place equipment (bed & TV controls, call light, phone, urinal) within reach 5. Encourage patient to wear glasses and hearing aides as appropriate 6. Maintain bed in lowest position 7. Lock wheels on bed/wheelchair 8. Provide adequate lighting, including night light 9. Assess need for additional bedding, food/fluids, pain med's prior to sleep/routinely 10. Provide gripper slippers or personal non-skid footwear 11. Teach patient and patient pharmaceutical sales representative to maintain environment for safety and engage in all aspects of fall prevention program 12. Remind patient to call for help before getting out of bed 13. Initiate bed/chair/exit alarms supportive devices as appropriate, (chair wedge, no-skid floor mat, raised edge mattress, hip protectors) 14. Locate patient bed assignment for optimal visualization 15. Evaluate and identify Safe Patient Handling Equipment needs 16. Provide supervision when out of bed or chair 17. Utilize gait belt as needed to assist with ambulation 18. Place adaptive equipment (cane, walker) within reach 19. Request patient pharmaceutical sales representative bring adaptive equipment/mobility aids from home or obtain and provide as needed 20. Consult pharmacy regarding effects of med's affecting mobility, cognition, and alternatives 21. Obtain physician order for PT if risk factors associated with mobility are present 22. Obtain physician order for OT as appropriate 23. Utilize diversional activities 24. Educate patient and patient pharmaceutical sales representative how to maintain a safe environment during visitation times (notify nurse prior to leaving bedside) 25. Consider appropriateness of medical or non-medical reception 26. Set up voiding schedule as appropriate (every 2 hours) Outcome: Progressing Note: Evaluation of progress towards goal: Fall risk, up with stand by assist, knows to call when needing assistance, personal items and call light are within reach. Problem: Glucose Imbalance Goal: Clinical indication of glucose balance is achieved Description: Patient's goal is: INTERVENTIONS 1. Monitor blood glucose levels as ordered 2. Administer medications as ordered 3. Notify physician of ineffective treatment plan Outcome: Progressing Note: Evaluation of progress towards goal: Monitoring blood sugars Goal: Patient's discharge needs are met Description: Patient's goal is: INTERVENTIONS 1. Assess patient for self-management skills 2. Encourage participation in diabetes management 3. Identify potential discharge barriers on admission and throughout hospital stay 4. Involve patient/S.O. in discharge planning process 5. Communicate referral to clinical research management associate as appropriate 6. Communicate referral to meal temperer as appropriate 7. Collaborate with case management/outreach and education social worker for discharge needs Outcome: Progressing Note: Evaluation of progress towards goal: Monitoring blood sugars [facility] 09-17-2023 Progress note Formatting of t his note is different from the original. BLOOD MANAGEMENT (BLOODLESS CARE) Patient has been admitted to the Bloodless Care Program. I rounded on patient and completed blood refusal consent. Provided education on blood alternatives available to pt. Pt declined all bloodless are patient choices. We have received the following papers: Blood refusal consent Please Note: Patient refuses all blood transfusions under any circumstances and All NO BLOOD indicators are in place Bloodless Care Patient Choices: Patient declined all minor fractions and procedures involving her own blood. Lab Results Component Value Date HGB 12.0 09/16/2023 Thank you for the opportunity to assist in the care of your patient. Please feel free to contact us with any questions or concerns. [facility] Blood Management/ Bloodless Care [facility] [address] [place] [address] Office: [phone] [facility] 09-17-2023 Nurse Note Pt being monitored in [employer]. Awaiting transport. [facility] 09-17-2023 Nurse Note Pt being monitored in [employer]. Awaiting transport. documented in this encounter [facility] 09-16-2023 Plan of care note Problem: Pain Goal: Patient goal is pain score less than 4, able to rest, and participant in treatment plan as appropriate Description: INTERVENTIONS: 1. Encourage patient or legal pharmaceutical sales representative to report early pain and ask for pain medicine when needed 2. Assess pain using appropriate pain scale and include the scale used when documenting 3. Administer analgesics based on type and severity of pain and evaluate response within appropriate time frame 4. Implement non-pharmacological measures as appropriate and evaluate response 5. Consider cultural and social influences on pain and pain management 6. Notify LIP if interventions ineffective or patient reports new pain 7. Monitor vital signs including pulse ox, end-tidal CO2 based on pain intervention 8. Reassess pain per policy 9. Teach patient or legal pharmaceutical sales representative interventions for comforting Outcome: Progressing Note: Evaluation of progress towards goal: pain management Problem: Safety Goal: Patient will be injury free during hospitalization Description: INTERVENTIONS: 1. Assess patient's risk for falls and implement fall prevention plan of care per policy 2. Provide and maintain a safe environment 3. Proper use of double Identifiers 4. Medication administration using the 5 rights 5. Hand hygiene 6. Specimens are labeled at the bedside 7. Instruct patient/ patient pharmaceutical sales representative about use of safety devices 8. Include patient/ patient pharmaceutical sales representative in decisions related to safety Outcome: Progressing Note: Evaluation of progress towards goal: injury prevention Problem: Infection Goal: Absence of infection during hospitalization Description: Interventions: 1. Assess and monitor for signs and symptoms of infection 2. Monitor lab/diagnostic results 3. Monitor all insertion sites i.e., indwelling lines, tubes and drains 4. Monitor endotracheal (as able) and nasal secretions for changes in amount and color 5. Administer medications as ordered 6. Instruct and encourage patient and family to use good hand hygiene technique 7. Identify and instruct patient/patient pharmaceutical sales representative in use of appropriate isolation precautions for identified infection/symptoms 8. Provide and discuss with patient/patient pharmaceutical sales representative on educational MDRO sheet 9. Encourage and monitor nutritional status daily and consult meal temperer if indicated 10. Implement neutropenic guidelines as needed 11. Review exposure to history of communicable disease and recent travel history on admission 12. Encourage annual influenza vaccine 13. Encourage pneumonia vaccine Outcome: Progressing Note: Evaluation of progress towards goal: infection prevention Problem: Knowledge Deficit Goal: Patient/patient pharmaceutical sales representative demonstrates understanding of disease process, treatment plan, medications, and discharge instructions Description: INTERVENTIONS 1. Complete learning assessment and assess knowledge base 2. Provide teaching at level of understanding 3. Provide teaching via preferred learning method(s) Outcome: Progressing Note: Evaluation of progress towards goal: gen knowledge [facility] 09-16-2023 Plan of care note Problem: Pain Goal: Patient goal is pain score less than 4, able to rest, and participant in treatment plan as appropriate Description: INTERVENTIONS: 1. Encourage patient or legal pharmaceutical sales representative to report early pain and ask for pain medicine when needed 2. Assess pain using appropriate pain scale and include the scale used when documenting 3. Administer analgesics based on type and severity of pain and evaluate response within appropriate time frame 4. Implement non-pharmacological measures as appropriate and evaluate response 5. Consider cultural and social influences on pain and pain management 6. Notify LIP if interventions ineffective or patient reports new pain 7. Monitor vital signs including pulse ox, end-tidal CO2 based on pain intervention 8. Reassess pain per policy 9. Teach patient or legal pharmaceutical sales representative interventions for comforting Outcome: Progressing Note: Evaluation of progress towards goal: no complaints of pain Problem: Safety Goal: Patient will be injury free during hospitalization Description: INTERVENTIONS: 1. Assess patient's risk for falls and implement fall prevention plan of care per policy 2. Provide and maintain a safe environment 3. Proper use of double Identifiers 4. Medication administration using the 5 rights 5. Hand hygiene 6. Specimens are labeled at the bedside 7. Instruct patient/ patient pharmaceutical sales representative about use of safety devices 8. Include patient/ patient pharmaceutical sales representative in decisions related to safety Outcome: Progressing Note: Evaluation of progress towards goal: safety maintained, uses call light appropriately Problem: Knowledge Deficit Goal: Patient/patient pharmaceutical sales representative demonstrates understanding of disease process, treatment plan, medications, and discharge instructions Description: INTERVENTIONS 1. Complete learning assessment and assess knowledge base 2. Provide teaching at level of understanding 3. Provide teaching via preferred learning method(s) Outcome: Progressing Note: Evaluation of progress towards goal: bronch complete, monitor swallowing [facility] 09-16-2023 Procedure note Images from the original note were not included. Bronchoscopy with Bronchoalveolar Lavage and Foreign Body Removal Dr. Amy Montague DO. Procedure Performed: Bronchoscopy with airway survey and bronchoalveolar lavage Removal of foreign body bronchus intermedius with aspiration Date of Procedure: 09/16/23 Indication: Foreign body Pre-op Diagnosis: Aspiration of foreign body bronchus intermedius Choking episode Post-op Diagnosis: Aspiration of foreign body bronchus intermedius (green pea) Choking episode Assist: None Anesthesia: General anesthesia. Please see their records. Indications and History The patient is a 73 y.o. female with a history of HTN, depression and hypothyroidism who presented to the ER after choking episode. Patient was hypoxic and did not cough out food that she choked on. Reportedly patient was eating chicken. CT chest revealed evidence of foreign body in the bronchus intermedius. Patient required 2L of oxygen. ASA Grade: ASA 2 - Patient with mild systemic disease with no functional limitations Consent to Procedure The risks, benefits, complications, treatment options and expected outcomes were discussed with the patient. The possibilities of reaction to medication, pulmonary aspiration, perforation of a viscus, bleeding, failure to diagnose a condition and creating a complication requiring transfusion or operation were discussed with the patient who freely signed the consent. Description of Procedure The patient was brought to the endoscopy suite, identified as Jeanmarie Garcia and the procedure verified as Flexible Fiberoptic Bronchoscopy. A Time Out was held and the above information confirmed. The patient was monitored with non-invasive blood pressure monitoring, pulse oximetry, and continuous ECG. Patient underwent anesthesia and intubation with ET tube as per anesthesia department. Once patient intubated, the bronchoscope was inserted into the endotracheal tube. Immediately there was visualized an obstructive body in the bronchus intermedius. Suction at end of the scope was applied and foreign body was able to slowly be withdrawn through the ET tube. Once FB removed it was able to be identified as a green pea. The bronchoscope was then reinserted and complete airway inspection was performed. After careful inspection of the trachea and adan, the bronchoscope was sequentially passed into all segments of the left and right endobronchial trees to the second and/or third divisions. No other abnormal lesions or foreign bodies seen. BAL was then collected from the RML with insertion of the scoe into the segment of the RML. A total of 80cc of saline was then instilled and aspirate back of 18cc in specimen collection for BAL. Bronchoscope was then removed and procedure completed. Patient was extubated and recovered as per anesthesia department. Endobronchial findings: Trachea: relatively normal with no significant lesion. Adan: Sharp and mobile with no mass. Right and left endobronchial trees: The endobronchial survey was significant for No mass No bleeding No inflammation Green pea in bronchus intermedius No significant bronchomalcia No mucous plugging Complications None Specimens Taken BAL - RML 18cc Foreign body removed bronchus intermedius: green pea The patient was taken to the Endoscopy Recovery area in satisfactory condition. Recommendations Return to medical floor Continue antibiotics for 10 days. Speech therapy evaluation and video swallow. Discharge planning. Dr. Amy Montague DO. [facility] Office: [phone] [facility] 09-16-2023 Attending History and physical note HISTORY AND PHYSICAL INTERVAL NOTE: Jeanmarie M Jose 1950 [id number] H&P reviewed. The patient was examined and there are no changes to the H&P. Amy Montague DO Source Note - Chito Will MD - 09/16/2023 11:15 AM EDT Images from the original note were not included. [facility] NOTE Date of Admission: 09/15/2023 3:51 PM Chief complaint: Foreign body aspiration History of Present Illness: Jeanmariematti Garcia is a 73 y.o. Black or female who has a past medical history significant for hypertension, adjustment disorder, DM, dyslipidemia, hypothyroidism presents to the hospital after she choked on her food. Reportedly a piece of chicken. Per EMS patient received Heimlich maneuver x4 after which airway became clear. She was started on 2 L of nasal cannula for shortness of breath. She still feels something stuck. CT on 09/14 showed retained foreign body PMH: Past Medical History: Diagnosis Date Anemia Atherosclerotic heart disease of [place] coronary artery without angina pectoris COPD (chronic obstructive pulmonary disease) ([facility] [place]) CVA (cerebral vascular accident) ([facility] [place]) Diabetes mellitus type 2, controlled ([facility] [place]) GERD (gastroesophageal reflux disease) Hyperlipidemia Hypertension Hypothyroidism Major depressive disorder Muscle weakness Non-ischemic cardiomyopathy ([facility] [place]) Obesity Other lack of coordination Other symbolic dysfunctions Schizoaffective disorder ([facility] [place]) Schizophrenia ([facility] [place]) Tremor Unspecified disorder of psychological development PSH: Past Surgical History: Procedure Laterality Date HERNIA REPAIR Allergies: No Known Allergies Home Meds: Scheduled Meds: ampicillin-sulbactam (UNASYN) IV, 3,000 mg, intravenous, Q6H atorvastatin, 10 mg, oral, Nightly benztropine, 0.5 mg, oral, BID cholecalciferol (vitamin D3), 2,000 Units, oral, Daily dapagliflozin propanediol, 10 mg, oral, Daily levothyroxine, 100 mcg, oral, Daily losartan, 50 mg, oral, Daily venlafaxine, 37.5 mg, oral, Daily Continuous Infusions: dextrose 5 % in water, 100 mL/hr sodium chloride 0.9 %, 20 mL/hr sodium chloride 0.9 %, 75 mL/hr, Last Rate: Stopped (09/16/23 0045) PRN Meds:. acetaminophen dextrose dextrose 5 % in water dextrose 50 % in water (D50W) glucagon (human recombinant) ondansetron sennosides-docusate sodium sodium chloride sodium chloride sodium chloride 0.9 % Social History: Social History Socioeconomic History Marital status: Single Spouse name: Not on file Number of children: Not on file Years of education: Not on file Highest education level: Not on file Occupational History Not on file Tobacco Use Smoking status: Every Day Current packs/day: 0.50 Average packs/day: 0.5 packs/day for 46.4 years (23.2 ttl pk-yrs) Types: Cigarettes Start date: 1977 Smokeless tobacco: Never Substance and Sexual Activity Alcohol use: Yes Comment: occasionally Drug use: Never Sexual activity: Not on file Other Topics Concern Not on file Social History Narrative Not on file Social Determinants of Health Financial Resource Strain: Not on file Food Insecurity: No Food Insecurity (09/16/2023) Hunger Screening Food Insecurity - Worry: Never True Food Insecurity - Inability: Never True Transportation Needs: No Transportation Needs (09/16/2023) PRAPARE - Transportation Lack of Transportation (Medical): No Lack of Transportation (Non-Medical): No Physical Activity: Not on file Stress: Not on file Social Connections: Not on file Interpersonal Safety: Patient Declined (09/16/2023) Humiliation, Afraid, Rape, and Kick questionnaire Fear of Current or Ex-Partner: Patient declined Emotionally Abused: Patient declined Physically Abused: Patient declined Sexually Abused: Patient declined Housing Instability: Low Risk (09/16/2023) Housing Instability Housing Instability: No Family History: History reviewed. No pertinent family history. Review of Systems Review of Systems Constitutional: Negative for fever. HENT: Negative for congestion. Eyes: Negative for visual disturbance. Respiratory: Negative for shortness of breath. Cardiovascular: Negative for chest pain/discomfort. Gastrointestinal: Negative for abdominal pain, nausea and vomiting. Genitourinary: Negative for flank pain. Musculoskeletal: Negative for back pain. Skin: Negative for color change. Neurological: Negative for headaches. Psychiatric/Behavioral: Negative for agitation. Physical Exam BP 128/80 Pulse 63 Temp 36.6 C (97.9 F) (Oral) Resp 18 Ht 162.6 cm (5' 4 ) Wt 88 kg (194 lb 0.1 oz) SpO2 98% BMI 33.30 kg/m No intake or output data in the 24 hours ending 09/16/23 1116 Admission weight: 88 kg (194 lb 0.1 oz) Physical Exam Constitutional: General: She is not in acute distress. Cardiovascular: Rate and Rhythm: Normal rate. Pulmonary: Effort: Pulmonary effort is normal. Breath sounds: Wheezing present. Comments: Inspiratory wheeze right middle lung Abdominal: General: Abdomen is flat. Musculoskeletal: General: Normal range of motion. Neurological: Mental Status: She is alert. Lab Review: Results from last 7 days Lab Units 09/16/23 0536 WBC X10E9/L 9.8 HEMOGLOBIN g/dL 12.0 HEMATOCRIT % 35.8 PLATELETS X10E9/L 208 Results from last 7 days Lab Units 09/16/23 0536 POTASSIUM mmol/L 4.0 CHLORIDE mmol/L 106 CO2 mmol/L 28 BUN mg/dL 22 CREATININE mg/dL 0.99 CALCIUM mg/dL 8.7 Results from last 7 days Lab Units 09/15/23 1855 MAGNESIUM mg/dL 2.1 Radiology: X-ray chest 1 view Result Date: 09/16/2023 Procedure: Chest x-ray performed Number of views:AP portable upright History:Cough Comparison:None Findings: The heart and lungs show no acute findings, and the mediastinum and maribel are grossly negative . Impression: No acute change. Finalized by Leilani Rizo DO on 09/16/2023 8:[address] chest without contrast Addendum Date: 09/15/2023 *ADDENDUM*Upon targeted retrospective review, small filling defect within bronchus intermedius, measures approximately 6 mm; can be seen with aspiration, inspissated mucous plugging, etc. Finalized by Rui Boswell MD on 09/15/2023 6:40 PM Result Date: 09/15/2023 CLINICAL HISTORY: Aspiration pneumonia. COMPARISON: None. TECHNIQUE: CT chest was performed without the use of IV contrast. Automated exposure control was utilized. FINDINGS: Limited evaluation of the hilar regions and vessels in the absence of IV contrast. LUNG/PLEURA: Probable tracheobronchomalacia. Mosaic attenuation. Bandlike left basilar atelectasis/scarring. No focal consolidation or effusion. No pneumothorax. HEART and GREAT VESSELS: Heart is normal in size. Trace pericardial fluid. Moderate coronary calcification. No pericardial effusion. Ascending aorta measures approximately 3.8 cm on this nondedicated study. MEDIASTINUM and LYMPH NODES: No enlarged axillary or mediastinal lymph nodes. Esophagus is nondilated. UPPER ABDOMEN: Focal soft tissue fullness of the mid pancreatic body. Right hemicolon dilatation up to approximately 7-8 cm. A 3 cm lesion of the left kidney, 30-32 Hounsfield units, indeterminate.. Cholecystectomy. Diastases of the upper rectus. MUSCULOSKELETAL AND LOWER NECK Postsurgical changes of the thyroid. No acute osseous abnormality. IMPRESSION: 1. No focal consolidation or other evidence for aspiration. 2. Partially imaged large bowel dilatation. Equivocal soft tissue fullness in the mid pancreatic body. Indeterminate left renal mass. Short-term CT of the abdomen/pelvis (with contrast) recommended. All CT scans at this facility use dose modulation, iterative reconstruction, and/or weight based dosing when appropriate to reduce radiation dose to as low as reasonably achievable. Finalized by Rui Boswell MD on 09/15/2023 5:47 PM Inpatient Meds: Scheduled Meds: ampicillin-sulbactam (UNASYN) IV, 3,000 mg, intravenous, Q6H atorvastatin, 10 mg, oral, Nightly benztropine, 0.5 mg, oral, BID cholecalciferol (vitamin D3), 2,000 Units, oral, Daily dapagliflozin propanediol, 10 mg, oral, Daily levothyroxine, 100 mcg, oral, Daily losartan, 50 mg, oral, Daily venlafaxine, 37.5 mg, oral, Daily Continuous Infusions: dextrose 5 % in water, 100 mL/hr sodium chloride 0.9 %, 20 mL/hr sodium chloride 0.9 %, 75 mL/hr, Last Rate: Stopped (09/16/23 0045) PRN Meds:. acetaminophen dextrose dextrose 5 % in water dextrose 50 % in water (D50W) glucagon (human recombinant) ondansetron sennosides-docusate sodium sodium chloride sodium chloride sodium chloride 0.9 % ASSESSMENT Acute hypoxic respiratory failure requiring 2 L of nasal cannula likely secondary to foreign body aspiration Foreign body aspiration, reportedly piece of chicken Hypertension Active smoker Adjustment disorder DM Hyperlipidemia Hypothyroidism PLAN Continue O2 supportive therapy, wean as tolerated Continue Unasyn Bronchoscopy today at 3:00 p.m. for foreign body retrieval Chito Will MD PGY-3 Internal Medicine [facility] This consult note was completed using a voice manufacturing quality engineer system. Every effort was made to ensure accuracy. However, inadvertent computerized manufacturing quality engineer errors may be present. [employer] Work Phone: 09-16-2023 History and physical note HISTORY AND PHYSICAL INTERVAL NOTE: Jeanmarie Garcia 1950 [id number] H&P reviewed. The patient was examined and there are no changes to the H&P. Amy oMntague DO Source Note - Chito Will MD - 09/16/2023 11:15 AM EDT Images from the original note were not included. [facility] NOTE Date of Admission: 09/15/2023 3:51 PM Chief complaint: Foreign body aspiration History of Present Illness: Jeanmarie Garcia is a 73 y.o. Black or female who has a past medical history significant for hypertension, adjustment disorder, DM, dyslipidemia, hypothyroidism presents to the hospital after she choked on her food. Reportedly a piece of chicken. Per EMS patient received Heimlich maneuver x4 after which airway became clear. She was started on 2 L of nasal cannula for shortness of breath. She still feels something stuck. CT on 09/14 showed retained foreign body PMH: Past Medical History: Diagnosis Date Anemia Atherosclerotic heart disease of [place] coronary artery without angina pectoris COPD (chronic obstructive pulmonary disease) ([facility] [place]) CVA (cerebral vascular accident) ([facility] [place]) Diabetes mellitus type 2, controlled ([facility] [place]) GERD (gastroesophageal reflux disease) Hyperlipidemia Hypertension Hypothyroidism Major depressive disorder Muscle weakness Non-ischemic cardiomyopathy ([facility] [place]) Obesity Other lack of coordination Other symbolic dysfunctions Schizoaffective disorder ([facility]) Schizophrenia ([facility] [place]) Tremor Unspecified disorder of psychological development PSH: Past Surgical History: Procedure Laterality Date HERNIA REPAIR Allergies: No Known Allergies Home Meds: Scheduled Meds: ampicillin-sulbactam (UNASYN) IV, 3,000 mg, intravenous, Q6H atorvastatin, 10 mg, oral, Nightly benztropine, 0.5 mg, oral, BID cholecalciferol (vitamin D3), 2,000 Units, oral, Daily dapagliflozin propanediol, 10 mg, oral, Daily levothyroxine, 100 mcg, oral, Daily losartan, 50 mg, oral, Daily venlafaxine, 37.5 mg, oral, Daily Continuous Infusions: dextrose 5 % in water, 100 mL/hr sodium chloride 0.9 %, 20 mL/hr sodium chloride 0.9 %, 75 mL/hr, Last Rate: Stopped (09/16/23 0045) PRN Meds:. acetaminophen dextrose dextrose 5 % in water dextrose 50 % in water (D50W) glucagon (human recombinant) ondansetron sennosides-docusate sodium sodium chloride sodium chloride sodium chloride 0.9 % Social History: Social History Socioeconomic History Marital status: Single Spouse name: Not on file Number of children: Not on file Years of education: Not on file Highest education level: Not on file Occupational History Not on file Tobacco Use Smoking status: Every Day Current packs/day: 0.50 Average packs/day: 0.5 packs/day for 46.4 years (23.2 ttl pk-yrs) Types: Cigarettes Start date: 1977 Smokeless tobacco: Never Substance and Sexual Activity Alcohol use: Yes Comment: occasionally Drug use: Never Sexual activity: Not on file Other Topics Concern Not on file Social History Narrative Not on file Social Determinants of Health Financial Resource Strain: Not on file Food Insecurity: No Food Insecurity (09/16/2023) Hunger Screening Food Insecurity - Worry: Never True Food Insecurity - Inability: Never True Transportation Needs: No Transportation Needs (09/16/2023) PRAPARE - Transportation Lack of Transportation (Medical): No Lack of Transportation (Non-Medical): No Physical Activity: Not on file Stress: Not on file Social Connections: Not on file Interpersonal Safety: Patient Declined (09/16/2023) Humiliation, Afraid, Rape, and Kick questionnaire Fear of Current or Ex-Partner: Patient declined Emotionally Abused: Patient declined Physically Abused: Patient declined Sexually Abused: Patient declined Housing Instability: Low Risk (09/16/2023) Housing Instability Housing Instability: No Family History: History reviewed. No pertinent family history. Review of Systems Review of Systems Constitutional: Negative for fever. HENT: Negative for congestion. Eyes: Negative for visual disturbance. Respiratory: Negative for shortness of breath. Cardiovascular: Negative for chest pain/discomfort. Gastrointestinal: Negative for abdominal pain, nausea and vomiting. Genitourinary: Negative for flank pain. Musculoskeletal: Negative for back pain. Skin: Negative for color change. Neurological: Negative for headaches. Psychiatric/Behavioral: Negative for agitation. Physical Exam BP 128/80 Pulse 63 Temp 36.6 C (97.9 F) (Oral) Resp 18 Ht 162.6 cm (5' 4 ) Wt 88 kg (194 lb 0.1 oz) SpO2 98% BMI 33.30 kg/m No intake or output data in the 24 hours ending 09/16/23 1116 Admission weight: 88 kg (194 lb 0.1 oz) Physical Exam Constitutional: General: She is not in acute distress. Cardiovascular: Rate and Rhythm: Normal rate. Pulmonary: Effort: Pulmonary effort is normal. Breath sounds: Wheezing present. Comments: Inspiratory wheeze right middle lung Abdominal: General: Abdomen is flat. Musculoskeletal: General: Normal range of motion. Neurological: Mental Status: She is alert. Lab Review: Results from last 7 days Lab Units 09/16/23 0536 WBC X10E9/L 9.8 HEMOGLOBIN g/dL 12.0 HEMATOCRIT % 35.8 PLATELETS X10E9/L 208 Results from last 7 days Lab Units 09/16/23 0536 POTASSIUM mmol/L 4.0 CHLORIDE mmol/L 106 CO2 mmol/L 28 BUN mg/dL 22 CREATININE mg/dL 0.99 CALCIUM mg/dL 8.7 Results from last 7 days Lab Units 09/15/23 1855 MAGNESIUM mg/dL 2.1 Radiology: X-ray chest 1 view Result Date: 09/16/2023 Procedure: Chest x-ray performed Number of views:AP portable upright History:Cough Comparison:None Findings: The heart and lungs show no acute findings, and the mediastinum and maribel are grossly negative . Impression: No acute change. Finalized by Leilani Rizo DO on 09/16/2023 8:[address] chest without contrast Addendum Date: 09/15/2023 *ADDENDUM*Upon targeted retrospective review, small filling defect within bronchus intermedius, measures approximately 6 mm; can be seen with aspiration, inspissated mucous plugging, etc. Finalized by Rui Boswell MD on 09/15/2023 6:40 PM Result Date: 09/15/2023 CLINICAL HISTORY: Aspiration pneumonia. COMPARISON: None. TECHNIQUE: CT chest was performed without the use of IV contrast. Automated exposure control was utilized. FINDINGS: Limited evaluation of the hilar regions and vessels in the absence of IV contrast. LUNG/PLEURA: Probable tracheobronchomalacia. Mosaic attenuation. Bandlike left basilar atelectasis/scarring. No focal consolidation or effusion. No pneumothorax. HEART and GREAT VESSELS: Heart is normal in size. Trace pericardial fluid. Moderate coronary calcification. No pericardial effusion. Ascending aorta measures approximately 3.8 cm on this nondedicated study. MEDIASTINUM and LYMPH NODES: No enlarged axillary or mediastinal lymph nodes. Esophagus is nondilated. UPPER ABDOMEN: Focal soft tissue fullness of the mid pancreatic body. Right hemicolon dilatation up to approximately 7-8 cm. A 3 cm lesion of the left kidney, 30-32 Hounsfield units, indeterminate.. Cholecystectomy. Diastases of the upper rectus. MUSCULOSKELETAL AND LOWER NECK Postsurgical changes of the thyroid. No acute osseous abnormality. IMPRESSION: 1. No focal consolidation or other evidence for aspiration. 2. Partially imaged large bowel dilatation. Equivocal soft tissue fullness in the mid pancreatic body. Indeterminate left renal mass. Short-term CT of the abdomen/pelvis (with contrast) recommended. All CT scans at this facility use dose modulation, iterative reconstruction, and/or weight based dosing when appropriate to reduce radiation dose to as low as reasonably achievable. Finalized by Rui Boswell MD on 09/15/2023 5:47 PM Inpatient Meds: Scheduled Meds: ampicillin-sulbactam (UNASYN) IV, 3,000 mg, intravenous, Q6H atorvastatin, 10 mg, oral, Nightly benztropine, 0.5 mg, oral, BID cholecalciferol (vitamin D3), 2,000 Units, oral, Daily dapagliflozin propanediol, 10 mg, oral, Daily levothyroxine, 100 mcg, oral, Daily losartan, 50 mg, oral, Daily venlafaxine, 37.5 mg, oral, Daily Continuous Infusions: dextrose 5 % in water, 100 mL/hr sodium chloride 0.9 %, 20 mL/hr sodium chloride 0.9 %, 75 mL/hr, Last Rate: Stopped (09/16/23 0045) PRN Meds:. acetaminophen dextrose dextrose 5 % in water dextrose 50 % in water (D50W) glucagon (human recombinant) ondansetron sennosides-docusate sodium sodium chloride sodium chloride sodium chloride 0.9 % ASSESSMENT Acute hypoxic respiratory failure requiring 2 L of nasal cannula likely secondary to foreign body aspiration Foreign body aspiration, reportedly piece of chicken Hypertension Active smoker Adjustment disorder DM Hyperlipidemia Hypothyroidism PLAN Continue O2 supportive therapy, wean as tolerated Continue Unasyn Bronchoscopy today at 3:00 p.m. for foreign body retrieval Chito Will MD PGY-3 Internal Medicine [facility] This consult note was completed using a voice manufacturing quality engineer system. Every effort was made to ensure accuracy. However, inadvertent computerized manufacturing quality engineer errors may be present. [facility] History and Physical 09/15/2023 Patient Name: Jeanmarie Garcia : 1950 Chief Complaint Aspiration Assessment and Plan Principal Problem: Foreign body in bronchus, initial encounter Foreign body in the bronchus Hypoxia due to above History of hypertension History of adjustment disorder and depressed mood History of diabetes mellitus as per Care everywhere she is on Fraxiga Dyslipidemia on atorvastatin Hypothyroidism on Synthroid Admit the patient, order home medication losartan levothyroxine atorvastatin Effexor on Farxiga, -Plan of care discussed at length with patient at bedside HPI Jeanmarie Garcia is a 73 y.o. female with past medical history significant for hypertension, adjustment disorder, diabetes mellitus, dyslipidemia, hypothyroidism, presented to the hospital she choked on her food, had CT scan which showed foreign body in the left main bronchus, pulmonary is aware, ED COURSE ED Course as of 09/15/23 2017 Sat Sep 15, [id number] I independently reviewed the patient's CT chest. Appears to have a foreign body in the left mainstem bronchus. Still pending official radiology read [DW] [address] Roy from pulmonology. Plan will be for bronchoscopy tomorrow morning and admission to the hospitalist for preoperative clearance. Also recommended covering with Unasyn. I spoke with Dr. Boswell from radiology who will amend his read that there is a foreign body in the right mainstem bronchus [DW] 184 I updated the patient on the results of the workup and plan of care for bronchoscopy tomorrow. She is agreeable to go forward at this point with hospitalization. Patient lives at a facility. I see that she has some psychiatric illness, thyroid disease, and possibly coronary disease as well. Ordering some screening labs and paged the hospitalist to discuss admission [DW] [address] Mesa who accepts patient for admission [DW] 2015 CBC shows mild leukocytosis in his otherwise unremarkable. Metabolic panel shows mild elevation in creatinine, and is otherwise reassuring. Coagulation studies are within normal limits. Lactate within normal limits, lessening concern for severe sepsis. BNP within normal limits, lessening concern for acute heart failure. Thyroid panel unremarkable. [DW] ED Course User Index [DW] Franko White DO Clinical Impressions as of 09/15/232016 Foreign body in bronchus, initial encounter ED TRIAGE VITALS ED Triage Vitals [09/15/23 1601] Temp Heart Rate Resp BP SpO2 37.2 C (99 F) 83 20 125/79 95 % Temp Source Heart Rate Source Patient Position BP Location FiO2 (%) Oral Pulse Ox Sitting Right arm -- History reviewed. No pertinent past medical history. No past surgical history on file. Allergy: Patient has no known allergies. Prior to Admission medications Not on File Social History: History reviewed. No pertinent family history. Review of Systems As per HPI; otherwise reviewed and negative per 10-pt review. Exam BP 120/65 Pulse 67 Temp 37.2 C (99 F) (Oral) Resp 18 SpO2 97% No intake or output data in the 24 hours ending 09/15/232003 General Appearance: Well-developed, well-nourished. Alert, cooperative, no acute cardiac or respiratory distress Head: Normocephalic, atraumatic Eyes: PERRL, conjunctiva/corneas clear, EOMI Nose: Nares normal, no drainage Throat: Lips and tongue normal; oral mucosa appears moist Neck: Supple, trachea midline, no cervical or supraclavicular adenopathy Lungs: normal breath sounds bilaterally; no wheezes, rhonchi, rales, or crackles; respirations unlabored Heart: Regular rate and rhythm, S1 and S2 normal, no murmur Abdomen: Soft, non-tender, bowel sounds active all four quadrants; no rigidity, rebound tenderness, guarding noted Extremities: Extremities normal, atraumatic, no cyanosis or pedal edema Pulses: Radial and dorsal pedis pulses present and equal bilaterally Skin: [place], warm, dry; no rashes or lesions Neurologic: CNII-XII intact, normal strength and sensation throughout Psychiatric: Patient awake, alert, oriented x 3; mood appears appropriate Laboratory Data Recent Results (from the past 24 hour(s)) CBC auto differential Collection Time: 09/15/23 6:55 PM Result Value Ref Range White Blood Cells 11.9 (H) 4.0 - 11.0 X10E9/L RBC count 4.30 3.80 - 5.20 X10E12/L Hemoglobin 12.3 11.7 - 15.5 g/dL Hematocrit 38.0 35 - 47 % MCV 88 80 - 100 fL MCH 28.7 27 - 34 pg MCHC 32.5 32 - 36 g/dL RDW 15.0 11.5 - 15.0 % Platelets 229 150 - 450 X10E9/L MPV 8.2 7 - 12 fL % neutrophils 68.4 % % lymphocytes 20.8 % % monocytes 6.2 % % eosinophils 4.1 % % Basophils 0.5 % Neutrophils Absolute (A) 8.1 (H) 1.5 - 6.6 X10E9/L Lymphocytes Absolute 2.5 1.0 - 3.5 X10E9/L Monocytes Absolute 0.7 0 - 0.9 X10E9/L Eosinophils Absolute 0.5 (H) 0.0 - 0.4 X10E9/L Basophils Absolute 0.1 0.0 - 0.2 X10E9/L Protime & INR Collection Time: 09/15/23 6:55 PM Result Value Ref Range Protime 11.5 9.8 - 13.2 sec Inr 1.0 0.8 - 1.1 APTT Collection Time: 09/15/23 6:55 PM Result Value Ref Range aPTT 29 26 - 37 sec Thyroid profile includes TSH FT4 Collection Time: 09/15/23 6:55 PM Result Value Ref Range TSH 1.26 0.49 - 4.67 uIU/mL T4, free 0.84 0.61 - 1.60 ng/dL Magnesium Collection Time: 09/15/23 6:55 PM Result Value Ref Range Magnesium 2.1 1.8 - 2.6 mg/dL Comprehensive metabolic panel Collection Time: 09/15/23 6:55 PM Result Value Ref Range Sodium 142 134 - 146 mmol/L Potassium, Bld 4.1 3.5 - 5.0 mmol/L Chloride 105 98 - 109 mmol/L CO2 29 22 - 32 mmol/L Anion gap 8 5 - 15 mmol/L BUN 25 5 - 27 mg/dL Creatinine 1.04 (H) 0.40 - 1.00 mg/dL Glucose 101 (H) 65 - 99 mg/dL Calcium 9.1 8.5 - 10.5 mg/dL Total Protein 7.5 6.0 - 8.0 g/dL Albumin 4.0 3.2 - 5.3 g/dL Alkaline Phosphatase 97 39 - 130 U/L AST 16 0 - 41 U/L ALT 19 0 - 31 U/L Total bilirubin 0.4 0.3 - 1.2 mg/dL eGFR (CKD-EPI)non-race dependent 57 (L) >59 ml/min/1.73sq.m Lactate w/ Reflex Collection Time: 09/15/23 6:55 PM Result Value Ref Range Lactate w/ Reflex 0.8 0.4 - 2.0 mmol/L B-type natriuretic peptide Collection Time: 09/15/23 6:55 PM Result Value Ref Range BNP 20 <100.0 pg/mL Imaging Imaging has been reviewed in detail and can be seen in full via EMR. Imaging: CT chest without contrast Addendum Date: 09/15/2023 *ADDENDUM*Upon targeted retrospective review, small filling defect within bronchus intermedius, measures approximately 6 mm; can be seen with aspiration, inspissated mucous plugging, etc. Finalized by Rui Boswell MD on 09/15/2023 6:40 PM Result Date: 09/15/2023 CLINICAL HISTORY: Aspiration pneumonia. COMPARISON: None. TECHNIQUE: CT chest was performed without the use of IV contrast. Automated exposure control was utilized. FINDINGS: Limited evaluation of the hilar regions and vessels in the absence of IV contrast. LUNG/PLEURA: Probable tracheobronchomalacia. Mosaic attenuation. Bandlike left basilar atelectasis/scarring. No focal consolidation or effusion. No pneumothorax. HEART and GREAT VESSELS: Heart is normal in size. Trace pericardial fluid. Moderate coronary calcification. No pericardial effusion. Ascending aorta measures approximately 3.8 cm on this nondedicated study. MEDIASTINUM and LYMPH NODES: No enlarged axillary or mediastinal lymph nodes. Esophagus is nondilated. UPPER ABDOMEN: Focal soft tissue fullness of the mid pancreatic body. Right hemicolon dilatation up to approximately 7-8 cm. A 3 cm lesion of the left kidney, 30-32 Hounsfield units, indeterminate.. Cholecystectomy. Diastases of the upper rectus. MUSCULOSKELETAL AND LOWER NECK Postsurgical changes of the thyroid. No acute osseous abnormality. IMPRESSION: 1. No focal consolidation or other evidence for aspiration. 2. Partially imaged large bowel dilatation. Equivocal soft tissue fullness in the mid pancreatic body. Indeterminate left renal mass. Short-term CT of the abdomen/pelvis (with contrast) recommended. All CT scans at this facility use dose modulation, iterative reconstruction, and/or weight based dosing when appropriate to reduce radiation dose to as low as reasonably achievable. Finalized by Rui Boswell MD on 09/15/2023 5:[address] chest without contrast Addendum: *ADDENDUM*Upon targeted retrospective review, small filling defect within bronchus intermedius, measures approximately 6 mm; can be seen with aspiration, inspissated mucous plugging, etc. Finalized by Rui Boswell MD on 09/15/2023 6:40 PM Narrative: CLINICAL HISTORY: Aspiration pneumonia. COMPARISON: None. TECHNIQUE: CT chest was performed without the use of IV contrast. Automated exposure control was utilized. FINDINGS: Limited evaluation of the hilar regions and vessels in the absence of IV contrast. LUNG/PLEURA: Probable tracheobronchomalacia. Mosaic attenuation. Bandlike left basilar atelectasis/scarring. No focal consolidation or effusion. No pneumothorax. HEART and GREAT VESSELS: Heart is normal in size. Trace pericardial fluid. Moderate coronary calcification. No pericardial effusion. Ascending aorta measures approximately 3.8 cm on this nondedicated study. MEDIASTINUM and LYMPH NODES: No enlarged axillary or mediastinal lymph nodes. Esophagus is nondilated. UPPER ABDOMEN: Focal soft tissue fullness of the mid pancreatic body. Right hemicolon dilatation up to approximately 7-8 cm. A 3 cm lesion of the left kidney, 30-32 Hounsfield units, indeterminate.. Cholecystectomy. Diastases of the upper rectus. MUSCULOSKELETAL AND LOWER NECK Postsurgical changes of the thyroid. No acute osseous abnormality. IMPRESSION: 1. No focal consolidation or other evidence for aspiration. 2. Partially imaged large bowel dilatation. Equivocal soft tissue fullness in the mid pancreatic body. Indeterminate left renal mass. Short-term CT of the abdomen/pelvis (with contrast) recommended. All CT scans at this facility use dose modulation, iterative reconstruction, and/or weight based dosing when appropriate to reduce radiation dose to as low as reasonably achievable. Finalized by Rui Boswell MD on 09/15/2023 5:47 PM Electronically signed by: MD Smita FERREIRA M.D. [facility] This note was completed using a voice manufacturing quality engineer system. Every effort was made to ensure accuracy. However, inadvertent computerized manufacturing quality engineer errors may be present. documented in this encounter [facility] 09-16-2023 Consult note Associated Order (s): IP CONSULT TO PULMONOLOGY Images from the original note were not included. [facility] PULMONARY CONSULT NOTE Date of Admission: 09/15/2023 3:51 PM Chief complaint: Foreign body aspiration History of Present Illness: Jeanmarie Garcia is a 73 y.o. Black or female who has a past medical history significant for hypertension, adjustment disorder, DM, dyslipidemia, hypothyroidism presents to the hospital after she choked on her food. Reportedly a piece of chicken. Per EMS patient received Heimlich maneuver x4 after which airway became clear. She was started on 2 L of nasal cannula for shortness of breath. She still feels something stuck. CT on 09/14 showed retained foreign body PMH: Past Medical History: Diagnosis Date Anemia Atherosclerotic heart disease of [place] coronary artery without angina pectoris COPD (chronic obstructive pulmonary disease) ([facility] [place]) CVA (cerebral vascular accident) ([facility] [place]) Diabetes mellitus type 2, controlled ([facility] [place]) GERD (gastroesophageal reflux disease) Hyperlipidemia Hypertension Hypothyroidism Major depressive disorder Muscle weakness Non-ischemic cardiomyopathy ([facility] [place]) Obesity Other lack of coordination Other symbolic dysfunctions Schizoaffective disorder ([facility] [place]) Schizophrenia ([facility] [place]) Tremor Unspecified disorder of psychological development PSH: Past Surgical History: Procedure Laterality Date HERNIA REPAIR Allergies: No Known Allergies Home Meds: Scheduled Meds: ampicillin-sulbactam (UNASYN) IV, 3,000 mg, intravenous, Q6H atorvastatin, 10 mg, oral, Nightly benztropine, 0.5 mg, oral, BID cholecalciferol (vitamin D3), 2,000 Units, oral, Daily dapagliflozin propanediol, 10 mg, oral, Daily levothyroxine, 100 mcg, oral, Daily losartan, 50 mg, oral, Daily venlafaxine, 37.5 mg, oral, Daily Continuous Infusions: dextrose 5 % in water, 100 mL/hr sodium chloride 0.9 %, 20 mL/hr sodium chloride 0.9 %, 75 mL/hr, Last Rate: Stopped (09/16/23 0045) PRN Meds:. acetaminophen dextrose dextrose 5 % in water dextrose 50 % in water (D50W) glucagon (human recombinant) ondansetron sennosides-docusate sodium sodium chloride sodium chloride sodium chloride 0.9 % Social History: Social History Socioeconomic History Marital status: Single Spouse name: Not on file Number of children: Not on file Years of education: Not on file Highest education level: Not on file Occupational History Not on file Tobacco Use Smoking status: Every Day Current packs/day: 0.50 Average packs/day: 0.5 packs/day for 46.4 years (23.2 ttl pk-yrs) Types: Cigarettes Start date: 1977 Smokeless tobacco: Never Substance and Sexual Activity Alcohol use: Yes Comment: occasionally Drug use: Never Sexual activity: Not on file Other Topics Concern Not on file Social History Narrative Not on file Social Determinants of Health Financial Resource Strain: Not on file Food Insecurity: No Food Insecurity (09/16/2023) Hunger Screening Food Insecurity - Worry: Never True Food Insecurity - Inability: Never True Transportation Needs: No Transportation Needs (09/16/2023) PRAPARE - Transportation Lack of Transportation (Medical): No Lack of Transportation (Non-Medical): No Physical Activity: Not on file Stress: Not on file Social Connections: Not on file Interpersonal Safety: Patient Declined (09/16/2023) Humiliation, Afraid, Rape, and Kick questionnaire Fear of Current or Ex-Partner: Patient declined Emotionally Abused: Patient declined Physically Abused: Patient declined Sexually Abused: Patient declined Housing Instability: Low Risk (09/16/2023) Housing Instability Housing Instability: No Family History: History reviewed. No pertinent family history. Review of Systems Review of Systems Constitutional: Negative for fever. HENT: Negative for congestion. Eyes: Negative for visual disturbance. Respiratory: Negative for shortness of breath. Cardiovascular: Negative for chest pain/discomfort. Gastrointestinal: Negative for abdominal pain, nausea and vomiting. Genitourinary: Negative for flank pain. Musculoskeletal: Negative for back pain. Skin: Negative for color change. Neurological: Negative for headaches. Psychiatric/Behavioral: Negative for agitation. Physical Exam BP 128/80 Pulse 63 Temp 36.6 C (97.9 F) (Oral) Resp 18 Ht 162.6 cm (5' 4 ) Wt 88 kg (194 lb 0.1 oz) SpO2 98% BMI 33.30 kg/m No intake or output data in the 24 hours ending 09/16/23 1116 Admission weight: 88 kg (194 lb 0.1 oz) Physical Exam Constitutional: General: She is not in acute distress. Cardiovascular: Rate and Rhythm: Normal rate. Pulmonary: Effort: Pulmonary effort is normal. Breath sounds: Wheezing present. Comments: Inspiratory wheeze right middle lung Abdominal: General: Abdomen is flat. Musculoskeletal: General: Normal range of motion. Neurological: Mental Status: She is alert. Lab Review: Results from last 7 days Lab Units 09/16/23 0536 WBC X10E9/L 9.8 HEMOGLOBIN g/dL 12.0 HEMATOCRIT % 35.8 PLATELETS X10E9/L 208 Results from last 7 days Lab Units 09/16/23 0536 POTASSIUM mmol/L 4.0 CHLORIDE mmol/L 106 CO2 mmol/L 28 BUN mg/dL 22 CREATININE mg/dL 0.99 CALCIUM mg/dL 8.7 Results from last 7 days Lab Units 09/15/23 1855 MAGNESIUM mg/dL 2.1 Radiology: X-ray chest 1 view Result Date: 09/16/2023 Procedure: Chest x-ray performed Number of views:AP portable upright History:Cough Comparison:None Findings: The heart and lungs show no acute findings, and the mediastinum and maribel are grossly negative . Impression: No acute change. Finalized by Leilani Rizo DO on 09/16/2023 8:[address] chest without contrast Addendum Date: 09/15/2023 *ADDENDUM*Upon targeted retrospective review, small filling defect within bronchus intermedius, measures approximately 6 mm; can be seen with aspiration, inspissated mucous plugging, etc. Finalized by Rui Boswell MD on 09/15/2023 6:40 PM Result Date: 09/15/2023 CLINICAL HISTORY: Aspiration pneumonia. COMPARISON: None. TECHNIQUE: CT chest was performed without the use of IV contrast. Automated exposure control was utilized. FINDINGS: Limited evaluation of the hilar regions and vessels in the absence of IV contrast. LUNG/PLEURA: Probable tracheobronchomalacia. Mosaic attenuation. Bandlike left basilar atelectasis/scarring. No focal consolidation or effusion. No pneumothorax. HEART and GREAT VESSELS: Heart is normal in size. Trace pericardial fluid. Moderate coronary calcification. No pericardial effusion. Ascending aorta measures approximately 3.8 cm on this nondedicated study. MEDIASTINUM and LYMPH NODES: No enlarged axillary or mediastinal lymph nodes. Esophagus is nondilated. UPPER ABDOMEN: Focal soft tissue fullness of the mid pancreatic body. Right hemicolon dilatation up to approximately 7-8 cm. A 3 cm lesion of the left kidney, 30-32 Hounsfield units, indeterminate.. Cholecystectomy. Diastases of the upper rectus. MUSCULOSKELETAL AND LOWER NECK Postsurgical changes of the thyroid. No acute osseous abnormality. IMPRESSION: 1. No focal consolidation or other evidence for aspiration. 2. Partially imaged large bowel dilatation. Equivocal soft tissue fullness in the mid pancreatic body. Indeterminate left renal mass. Short-term CT of the abdomen/pelvis (with contrast) recommended. All CT scans at this facility use dose modulation, iterative reconstruction, and/or weight based dosing when appropriate to reduce radiation dose to as low as reasonably achievable. Finalized by Rui Boswell MD on 09/15/2023 5:47 PM Inpatient Meds: Scheduled Meds: ampicillin-sulbactam (UNASYN) IV, 3,000 mg, intravenous, Q6H atorvastatin, 10 mg, oral, Nightly benztropine, 0.5 mg, oral, BID cholecalciferol (vitamin D3), 2,000 Units, oral, Daily dapagliflozin propanediol, 10 mg, oral, Daily levothyroxine, 100 mcg, oral, Daily losartan, 50 mg, oral, Daily venlafaxine, 37.5 mg, oral, Daily Continuous Infusions: dextrose 5 % in water, 100 mL/hr sodium chloride 0.9 %, 20 mL/hr sodium chloride 0.9 %, 75 mL/hr, Last Rate: Stopped (09/16/2344) PRN Meds:. acetaminophen dextrose dextrose 5 % in water dextrose 50 % in water (D50W) glucagon (human recombinant) ondansetron sennosides-docusate sodium sodium chloride sodium chloride sodium chloride 0.9 % ASSESSMENT Acute hypoxic respiratory failure requiring 2 L of nasal cannula likely secondary to foreign body aspiration Foreign body aspiration, reportedly piece of chicken Hypertension Active smoker Adjustment disorder DM Hyperlipidemia Hypothyroidism PLAN Continue O2 supportive therapy, wean as tolerated Continue Unasyn Bronchoscopy today at 3:00 p.m. for foreign body retrieval Chito Will MD PGY-3 Internal Medicine [facility] This consult note was completed using a voice manufacturing quality engineer system. Every effort was made to ensure accuracy. However, inadvertent computerized manufacturing quality engineer errors may be present. Associated attestation - Amy Montague DO - 09/16/2023 2:40 PM EDT Attestation signed by 2:37 PM PULMONARY/CRITICAL CARE ATTENDING ATTESTATION I have personally and independently examined the patient. I confirm the note and agree with the assessment and plan as documented by the resident. Please note there may be additional comments below. Comments Patient with audible wheeze right lung field and concern for aspirated foreign body right bronchus intermedius. On empiric unasyn. Plan for bronchoscopy with retrieval today. Consent reviewed with patient in detail. Risk of not retrieving FB reviewed and risk of procedure discussed with RN present. Patient signed consent and placed on chart. Advise swallow evaluation with video prior to discharge. Note macroglossia Complete 10 days of abx. Can transition to Augmentin at discharge. Amy Montague DO. [facility] Pulmonary / Critical Care Pager: [phone] [facility] 09-16-2023 Consult note Associated Order (s): IP CONSULT TO PULMONOLOGY Images from the original note were not included. [facility] PULMONARY CONSULT NOTE Date of Admission: 09/15/2023 3:51 PM Chief complaint: Foreign body aspiration History of Present Illness: Jeanmarie Garcia is a 73 y.o. Black or female who has a past medical history significant for hypertension, adjustment disorder, DM, dyslipidemia, hypothyroidism presents to the hospital after she choked on her food. Reportedly a piece of chicken. Per EMS patient received Heimlich maneuver x4 after which airway became clear. She was started on 2 L of nasal cannula for shortness of breath. She still feels something stuck. CT on 09/14 showed retained foreign body PMH: Past Medical History: Diagnosis Date Anemia Atherosclerotic heart disease of [place] coronary artery without angina pectoris COPD (chronic obstructive pulmonary disease) ([facility] [place]) CVA (cerebral vascular accident) ([facility] [place]) Diabetes mellitus type 2, controlled ([facility] [place]) GERD (gastroesophageal reflux disease) Hyperlipidemia Hypertension Hypothyroidism Major depressive disorder Muscle weakness Non-ischemic cardiomyopathy ([facility] [place]) Obesity Other lack of coordination Other symbolic dysfunctions Schizoaffective disorder ([facility] [place]) Schizophrenia ([facility] [place]) Tremor Unspecified disorder of psychological development PSH: Past Surgical History: Procedure Laterality Date HERNIA REPAIR Allergies: No Known Allergies Home Meds: Scheduled Meds: ampicillin-sulbactam (UNASYN) IV, 3,000 mg, intravenous, Q6H atorvastatin, 10 mg, oral, Nightly benztropine, 0.5 mg, oral, BID cholecalciferol (vitamin D3), 2,000 Units, oral, Daily dapagliflozin propanediol, 10 mg, oral, Daily levothyroxine, 100 mcg, oral, Daily losartan, 50 mg, oral, Daily venlafaxine, 37.5 mg, oral, Daily Continuous Infusions: dextrose 5 % in water, 100 mL/hr sodium chloride 0.9 %, 20 mL/hr sodium chloride 0.9 %, 75 mL/hr, Last Rate: Stopped (09/16/23 0045) PRN Meds:. acetaminophen dextrose dextrose 5 % in water dextrose 50 % in water (D50W) glucagon (human recombinant) ondansetron sennosides-docusate sodium sodium chloride sodium chloride sodium chloride 0.9 % Social History: Social History Socioeconomic History Marital status: Single Spouse name: Not on file Number of children: Not on file Years of education: Not on file Highest education level: Not on file Occupational History Not on file Tobacco Use Smoking status: Every Day Current packs/day: 0.50 Average packs/day: 0.5 packs/day for 46.4 years (23.2 ttl pk-yrs) Types: Cigarettes Start date: 1977 Smokeless tobacco: Never Substance and Sexual Activity Alcohol use: Yes Comment: occasionally Drug use: Never Sexual activity: Not on file Other Topics Concern Not on file Social History Narrative Not on file Social Determinants of Health Financial Resource Strain: Not on file Food Insecurity: No Food Insecurity (09/16/2023) Hunger Screening Food Insecurity - Worry: Never True Food Insecurity - Inability: Never True Transportation Needs: No Transportation Needs (09/16/2023) PRAPARE - Transportation Lack of Transportation (Medical): No Lack of Transportation (Non-Medical): No Physical Activity: Not on file Stress: Not on file Social Connections: Not on file Interpersonal Safety: Patient Declined (09/16/2023) Humiliation, Afraid, Rape, and Kick questionnaire Fear of Current or Ex-Partner: Patient declined Emotionally Abused: Patient declined Physically Abused: Patient declined Sexually Abused: Patient declined Housing Instability: Low Risk (09/16/2023) Housing Instability Housing Instability: No Family History: History reviewed. No pertinent family history. Review of Systems Review of Systems Constitutional: Negative for fever. HENT: Negative for congestion. Eyes: Negative for visual disturbance. Respiratory: Negative for shortness of breath. Cardiovascular: Negative for chest pain/discomfort. Gastrointestinal: Negative for abdominal pain, nausea and vomiting. Genitourinary: Negative for flank pain. Musculoskeletal: Negative for back pain. Skin: Negative for color change. Neurological: Negative for headaches. Psychiatric/Behavioral: Negative for agitation. Physical Exam BP 128/80 Pulse 63 Temp 36.6 C (97.9 F) (Oral) Resp 18 Ht 162.6 cm (5' 4 ) Wt 88 kg (194 lb 0.1 oz) SpO2 98% BMI 33.30 kg/m No intake or output data in the 24 hours ending 09/16/23 1116 Admission weight: 88 kg (194 lb 0.1 oz) Physical Exam Constitutional: General: She is not in acute distress. Cardiovascular: Rate and Rhythm: Normal rate. Pulmonary: Effort: Pulmonary effort is normal. Breath sounds: Wheezing present. Comments: Inspiratory wheeze right middle lung Abdominal: General: Abdomen is flat. Musculoskeletal: General: Normal range of motion. Neurological: Mental Status: She is alert. Lab Review: Results from last 7 days Lab Units 09/16/23 0536 WBC X10E9/L 9.8 HEMOGLOBIN g/dL 12.0 HEMATOCRIT % 35.8 PLATELETS X10E9/L 208 Results from last 7 days Lab Units 09/16/23 0536 POTASSIUM mmol/L 4.0 CHLORIDE mmol/L 106 CO2 mmol/L 28 BUN mg/dL 22 CREATININE mg/dL 0.99 CALCIUM mg/dL 8.7 Results from last 7 days Lab Units 09/15/23 1855 MAGNESIUM mg/dL 2.1 Radiology: X-ray chest 1 view Result Date: 09/16/2023 Procedure: Chest x-ray performed Number of views:AP portable upright History:Cough Comparison:None Findings: The heart and lungs show no acute findings, and the mediastinum and maribel are grossly negative . Impression: No acute change. Finalized by Leilani Rizo DO on 09/16/2023 8:[address] chest without contrast Addendum Date: 09/15/2023 *ADDENDUM*Upon targeted retrospective review, small filling defect within bronchus intermedius, measures approximately 6 mm; can be seen with aspiration, inspissated mucous plugging, etc. Finalized by Rui Boswell MD on 09/15/2023 6:40 PM Result Date: 09/15/2023 CLINICAL HISTORY: Aspiration pneumonia. COMPARISON: None. TECHNIQUE: CT chest was performed without the use of IV contrast. Automated exposure control was utilized. FINDINGS: Limited evaluation of the hilar regions and vessels in the absence of IV contrast. LUNG/PLEURA: Probable tracheobronchomalacia. Mosaic attenuation. Bandlike left basilar atelectasis/scarring. No focal consolidation or effusion. No pneumothorax. HEART and GREAT VESSELS: Heart is normal in size. Trace pericardial fluid. Moderate coronary calcification. No pericardial effusion. Ascending aorta measures approximately 3.8 cm on this nondedicated study. MEDIASTINUM and LYMPH NODES: No enlarged axillary or mediastinal lymph nodes. Esophagus is nondilated. UPPER ABDOMEN: Focal soft tissue fullness of the mid pancreatic body. Right hemicolon dilatation up to approximately 7-8 cm. A 3 cm lesion of the left kidney, 30-32 Hounsfield units, indeterminate.. Cholecystectomy. Diastases of the upper rectus. MUSCULOSKELETAL AND LOWER NECK Postsurgical changes of the thyroid. No acute osseous abnormality. IMPRESSION: 1. No focal consolidation or other evidence for aspiration. 2. Partially imaged large bowel dilatation. Equivocal soft tissue fullness in the mid pancreatic body. Indeterminate left renal mass. Short-term CT of the abdomen/pelvis (with contrast) recommended. All CT scans at this facility use dose modulation, iterative reconstruction, and/or weight based dosing when appropriate to reduce radiation dose to as low as reasonably achievable. Finalized by Rui Boswell MD on 09/15/2023 5:47 PM Inpatient Meds: Scheduled Meds: ampicillin-sulbactam (UNASYN) IV, 3,000 mg, intravenous, Q6H atorvastatin, 10 mg, oral, Nightly benztropine, 0.5 mg, oral, BID cholecalciferol (vitamin D3), 2,000 Units, oral, Daily dapagliflozin propanediol, 10 mg, oral, Daily levothyroxine, 100 mcg, oral, Daily losartan, 50 mg, oral, Daily venlafaxine, 37.5 mg, oral, Daily Continuous Infusions: dextrose 5 % in water, 100 mL/hr sodium chloride 0.9 %, 20 mL/hr sodium chloride 0.9 %, 75 mL/hr, Last Rate: Stopped (09/16/23 0045) PRN Meds:. acetaminophen dextrose dextrose 5 % in water dextrose 50 % in water (D50W) glucagon (human recombinant) ondansetron sennosides-docusate sodium sodium chloride sodium chloride sodium chloride 0.9 % ASSESSMENT Acute hypoxic respiratory failure requiring 2 L of nasal cannula likely secondary to foreign body aspiration Foreign body aspiration, reportedly piece of chicken Hypertension Active smoker Adjustment disorder DM Hyperlipidemia Hypothyroidism PLAN Continue O2 supportive therapy, wean as tolerated Continue Unasyn Bronchoscopy today at 3:00 p.m. for foreign body retrieval Chito Will MD PGY-3 Internal Medicine [facility] This consult note was completed using a voice manufacturing quality engineer system. Every effort was made to ensure accuracy. However, inadvertent computerized manufacturing quality engineer errors may be present. Associated attestation - Amy Montague DO - 09/16/2023 2:40 PM EDT Attestation signed by 2:37 PM PULMONARY/CRITICAL CARE ATTENDING ATTESTATION I have personally and independently examined the patient. I confirm the note and agree with the assessment and plan as documented by the resident. Please note there may be additional comments below. Comments Patient with audible wheeze right lung field and concern for aspirated foreign body right bronchus intermedius. On empiric unasyn. Plan for bronchoscopy with retrieval today. Consent reviewed with patient in detail. Risk of not retrieving FB reviewed and risk of procedure discussed with RN present. Patient signed consent and placed on chart. Advise swallow evaluation with video prior to discharge. Note macroglossia Complete 10 days of abx. Can transition to Augmentin at discharge. Amy Montague DO. [facility] Pul[facility] / Critical Care Pager: [phone] documented in this encounter [facility] 09-16-2023 Note XR CHEST 1 VW Procedure: Chest x-ray performed Number of views:AP portable upright History:Cough Comparison:None Findings: The heart and lungs show no acute findings, and the mediastinum and maribel are grossly negative . Impression: No acute change. Finalized by Leilani Rizo DO on 09/16/2023 8:39 AM [facility] 09-16-2023 Note Procedure: Chest x-ray performed Number of views:AP portable upright History:Cough Comparison:None Findings: The heart and lungs show no acute findings, and the mediastinum and maribel are grossly negative . Impression: No acute change. Finalized by Leilani Rizo DO on 09/16/2023 8:39 AM [facility] 09-16-2023 Progress note Formatting of t his note might be different from the original. Discussed with Dr. Roy last evening. Discussed with RN this am. Patient on 2L with saturations in 90s. No distress. Did not produce foreign body overnight. Still inspiratory wheeze right mid lung field on exam. CXR this am pending CT chest 09/14 still with retained foreign body present. (Reportedly chicken) Macroglossia on exam. Will need video swallow prior to discharge. Continue Unasyn Patient denies on blood thinners at home or known cardiac or pulmonary disease. Active smoker. Case requested for endoscopy today for foreign body retrieval. Await timing. Full consult to follow Dr. Amy Montague DO. [facility] Office: [phone] [facility] 09-15-2023 Emergency department Note Dave Jeter wants report when patient is admitted and on the floor. Ask for Ilana [phone]. [facility] 09-15-2023 Emergency department Note Dave Jeter wants report when patient is admitted and on the floor. Ask for Ilana [phone]. Images from the original note were not included. History Chief Complaint Patient presents with Choking Foreign Body in Throat 35-year-old female who presented to [facility] via EMS after choking on chicken earlier today. For EMS personnel, patient received Heimlich maneuver x4 after which airway became clear. She was started on nasal cannula 2 L due to some shortness for breath. Talking to her now, she believes that she still has something stuck in her throat. Never had any chicken come out after Heimlich. Was in a sitting position at table when episode happened. She denies any nausea, vomiting, fever, chills, chest pain. She thinks her voice is roughly the same as it always is. Foreign Body in Throat Problem List Items Addressed This Visit Respiratory * (Principal) Foreign body in bronchus, initial encounter - Primary History reviewed. No pertinent past medical history. No past surgical history on file. Travel Screening No screening recorded since 09/14/23 1551 Travel History Travel since 08/15/23 No documented travel since 08/15/23 History reviewed. No pertinent family history. Social History Substance and Sexual Activity Drug Use Not on file Review of Systems Constitutional: Negative for activity change and diaphoresis. HENT: Negative for congestion. Respiratory: Positive for choking. Negative for apnea, cough, chest tightness, shortness of breath, wheezing and stridor. Cardiovascular: Negative for chest pain/discomfort, palpitations, leg swelling and syncope. Gastrointestinal: Negative for abdominal distention and abdominal pain. Neurological: Negative for dizziness, seizures, light-headedness and numbness. Psychiatric/Behavioral: Negative for agitation, behavioral problems and confusion. Physical Exam ED Triage Vitals [09/15/23 1601] Temp Heart Rate Resp BP SpO2 37.2 C (99 F) 83 20 125/79 95 % Temp Source Heart Rate Source Patient Position BP Location FiO2 (%) Oral Pulse Ox Sitting Right arm -- Vitals: 09/15/23 1702 09/15/23 1845 09/15/23 1900 09/15/232013 BP: 136/90 120/65 131/84 Temp: TempSrc: Pulse: 81 67 81 Resp: 18 18 18 SpO2: 93% 97% 97% MAP (mmHg): 104 77 98 Height: 162.6 cm (5' 4 ) Physical Exam Constitutional: Appearance: Normal appearance. She is normal weight. HENT: Head: Normocephalic and atraumatic. Cardiovascular: Rate and Rhythm: Normal rate. Pulses: Normal pulses. Heart sounds: Normal heart sounds. Pulmonary: Effort: Pulmonary effort is normal. Breath sounds: Normal breath sounds. Comments: No pain to palpation over ribs for chest wall Lungs remain clear to auscultation bilaterally Airway appears grossly pain. Patient is able to talk in full sentences. Upon oropharyngeal exam, no obvious obstructing body present. Abdominal: General: Abdomen is flat. Palpations: Abdomen is soft. Skin: General: Skin is warm and dry. Coloration: Skin is not jaundiced. Findings: No bruising. Neurological: General: No focal deficit present. Mental Status: She is alert. She is disoriented. Psychiatric: Mood and Affect: Mood normal. Behavior: Behavior normal. Thought Content: Thought content normal. Procedure Procedures Re-Evaluation Re-Evaluation ED Course ED Course as of 09/15/232023 Sat Sep 15, 20231744 I independently reviewed the patient's CT chest. Appears to have a foreign body in the left mainstem bronchus. Still pending official radiology read [DW] [address] Roy from pulmonology. Plan will be for bronchoscopy tomorrow morning and admission to the hospitalist for preoperative clearance. Also recommended covering with Unasyn. I spoke with Dr. Boswell from radiology who will amend his read that there is a foreign body in the right mainstem bronchus [DW] 184 I updated the patient on the results of the workup and plan of care for bronchoscopy tomorrow. She is agreeable to go forward at this point with hospitalization. Patient lives at a facility. I see that she has some psychiatric illness, thyroid disease, and possibly coronary disease as well. Ordering some screening labs and paged the hospitalist to discuss admission [DW] [address] Mesa who accepts patient for admission [DW] 2015 CBC shows mild leukocytosis in his otherwise unremarkable. Metabolic panel shows mild elevation in creatinine, and is otherwise reassuring. Coagulation studies are within normal limits. Lactate within normal limits, lessening concern for severe sepsis. BNP within normal limits, lessening concern for acute heart failure. Thyroid panel unremarkable. [DW] ED Course User Index [DW] Franko White DO Clinical Impressions as of 09/15/232023 Foreign body in bronchus, initial encounter MDM Medical Decision Making Patient is 73-year-old female presenting with recent aspiration episode after receiving Heimlich maneuver x4. Her airway appears grossly patent. She has not in any stridor or respiratory distress. Examination is largely unremarkable. No evidence of rib fracture or ongoing stridor, hypoxemia. At this point, it is possible that foreign body remains present inpatient. We will proceed with imaging to evaluate whether this is something that we will require potential endoscopic intervention. Patient guardian has been made aware of patient's current visit to [facility]. Amount and/or Complexity of Data Reviewed Labs: ordered. Radiology: ordered. Risk Prescription drug management. I, René Monroe (scribe), documented on behalf of Dr. White. [id number] Jeanmarie Garcia is a 73 y.o. female presenting to the ED for chief complaint of chocking w/ a foreign body in the throat. Pt reports choking on chicken. They were given the Heimleinch manuever with relief but still feels as if it is stuck in their throat. They report that everything else feels normal. Dr. White personally saw and evaluated the patient. Dr. White discussed the plan with the LEONIDES/ Resident. Dr. White personally made/approved the management plan for this patient and takes responsibility for the patient management. Exam findings as follows: Constitutional: Awake and alert HENT: Normocephalic and atraumatic, oral pharynx clear Eyes: Conjunctiva unremarkable Cardiovascular: Heart rate regular Pulmonary: Easy work of breathing, no strider, speaking in full sentences Abdominal: Flat and non-distended : tolerating own secretions Skin: Warm and dry Musculoskeletal: Moving all extremities spontaneously RESULTS Labs: Labs Reviewed CBC WITH AUTO DIFFERENTIAL - Abnormal; Notable for the following components: Result Value White Blood Cells 11.9 (*) Neutrophils Absolute (A) 8.1 (*) Eosinophils Absolute 0.5 (*) All other components within normal limits COMPREHENSIVE METABOLIC PANEL - Abnormal; Notable for the following components: Creatinine 1.04 (*) Glucose 101 (*) eGFR (CKD-EPI)non-race dependent 57 (*) All other components within normal limits PROTIME & INR APTT THYROID PROFILE INCLUDES TSH FT4 MAGNESIUM LACTATE W/ REFLEX B-TYPE NATRIURETIC PEPTIDE Radiology: CT chest without contrast Addendum Date: 09/15/2023 *ADDENDUM*Upon targeted retrospective review, small filling defect within bronchus intermedius, measures approximately 6 mm; can be seen with aspiration, inspissated mucous plugging, etc. Finalized by Rui Boswell MD on 09/15/2023 6:40 PM Result Date: 09/15/2023 CLINICAL HISTORY: Aspiration pneumonia. COMPARISON: None. TECHNIQUE: CT chest was performed without the use of IV contrast. Automated exposure control was utilized. FINDINGS: Limited evaluation of the hilar regions and vessels in the absence of IV contrast. LUNG/PLEURA: Probable tracheobronchomalacia. Mosaic attenuation. Bandlike left basilar atelectasis/scarring. No focal consolidation or effusion. No pneumothorax. HEART and GREAT VESSELS: Heart is normal in size. Trace pericardial fluid. Moderate coronary calcification. No pericardial effusion. Ascending aorta measures approximately 3.8 cm on this nondedicated study. MEDIASTINUM and LYMPH NODES: No enlarged axillary or mediastinal lymph nodes. Esophagus is nondilated. UPPER ABDOMEN: Focal soft tissue fullness of the mid pancreatic body. Right hemicolon dilatation up to approximately 7-8 cm. A 3 cm lesion of the left kidney, 30-32 Hounsfield units, indeterminate.. Cholecystectomy. Diastases of the upper rectus. MUSCULOSKELETAL AND LOWER NECK Postsurgical changes of the thyroid. No acute osseous abnormality. IMPRESSION: 1. No focal consolidation or other evidence for aspiration. 2. Partially imaged large bowel dilatation. Equivocal soft tissue fullness in the mid pancreatic body. Indeterminate left renal mass. Short-term CT of the abdomen/pelvis (with contrast) recommended. All CT scans at this facility use dose modulation, iterative reconstruction, and/or weight based dosing when appropriate to reduce radiation dose to as low as reasonably achievable. Finalized by Rui Boswell MD on 09/15/2023 5:47 PM NURSING NOTES AND VITALS REVIEWED The nursing notes within the ED encounter and vital signs as below have been reviewed. BP 131/84 Pulse 81 Temp 37.2 C (99 F) (Oral) Resp 18 Ht 162.6 cm (5' 4 ) SpO2 97% PROGRESS NOTES The plan of care has been discussed with patient including today s results, in addition to providing specific details regarding counseling pertaining to the diagnosis and prognosis. All questions were answered at this time and they are agreeable with the plan --- ADDITIONAL PROVIDER NOTES --- At this time the patient has objective evidence of an acute process requiring hospitalization or inpatient management. Medications sodium chloride 0.9 % flush 3 mL (has no administration in time range) ampicillin-sulbactam (UNASYN) 3,000 mg in sodium chloride 0.9 % 100 mL IVPB-MBP (has no administration in time range) losartan (COZAAR) tablet 50 mg (has no administration in time range) levothyroxine (SYNTHROID, LEVOTHROID) tablet 100 mcg (has no administration in time range) atorvastatin (LIPITOR) tablet 10 mg (has no administration in time range) dapagliflozin propanediol (FARXIGA) tablet 10 mg (has no administration in time range) ampicillin-sulbactam (UNASYN) 3,000 mg in sodium chloride 0.9 % 100 mL IVPB-MBP (3,000 mg intravenous New Bag 09/15/231915) Medication List None Diagnosis: 1. Foreign body in bronchus, initial encounter Disposition: Patient's disposition: Admit Patient's condition is stable. Critical Care time: 0 Provider Statement By electronically signing this emergency patient record, the Emergency Physician/BUS AND TROLLEY INSPECTING DISPATCHER/PA-C attests that all entries made into the electronic medical record by azeem Villavicencio prior to the Physician/BUS AND TROLLEY INSPECTING DISPATCHER/PA-C signature reflect an accurate accounting of the evaluation and care rendered by that Emergency Physician/BUS AND TROLLEY INSPECTING DISPATCHER/PA-C. The Emergency Physician/BUS AND TROLLEY INSPECTING DISPATCHER/PA-C assumes full responsibility for those entries. The Emergency Physician/BUS AND TROLLEY INSPECTING DISPATCHER/PA-C also attests that any patient testing or treatment that was instituted by nursing staff in accordance to Emergency Department Preemptive Guidelines have been reviewed and unless so stated elsewhere in this patient chart, the Physician/BUS AND TROLLEY INSPECTING DISPATCHER/PA-C agrees with the testing and care provided. Provider Statement I performed a history and physical exam on this patient and discussed his or her management with the resident. I reviewed the residents's note and agree with the documented findings and plan of care with the following exceptions: None Provider Procedure Statement: For procedures performed by the resident I was physically present during the ames or critical portions of the procedure. Provider Statement: By electronically signing this emergency patient record, the Emergency Physician/BUS AND TROLLEY INSPECTING DISPATCHER/PA-C attests that all entries made into the electronic medical record by the scribe prior to the Physician/BUS AND TROLLEY INSPECTING DISPATCHER/PA-C signature reflect an accurate accounting of the evaluation and care rendered by that Emergency Physician/BUS AND TROLLEY INSPECTING DISPATCHER/PA-C. The Emergency Physician/BUS AND TROLLEY INSPECTING DISPATCHER/PA-C assumes full responsibility for those entries. René Monroe 09/15/23 1610 René Monroe 09/15/23 1958 René Monroe 09/15/232024 Franko White DO 09/15/236 Pt presents to ED by EMS from nursing facility. Per EMS pt was eating lunch and choked on some chicken. EMS stated pt was given heimlich maneuver which opened her airway but nothing was expelled from throat. EMS reports pt having a dry cough for EMS ride and upon arrival. . Pt VSS and no distress noted. Bed: 33 Expected date: Expected time: Means of arrival: Comments: 73 y/o F Choked while eating lunch 98% 2L 80 18 129/76 ETA 10 [facility] Jeanmarie Garcia 1950 Choking episode at [facility], received heimlich 4x, pt still feels something stuck, hx stroke Dr. Pate A&O Assisted living 98% RA Dry coughing 20g L FA No meds documented in this encounter [facility] 09-15-2023 History and physical note [facility] History and Physical 09/15/2023 Patient Name: Jeanmarie Garcia : 1950 Chief Complaint Aspiration Assessment and Plan Principal Problem: Foreign body in bronchus, initial encounter Foreign body in the bronchus Hypoxia due to above History of hypertension History of adjustment disorder and depressed mood History of diabetes mellitus as per Care everywhere she is on Fraxiga Dyslipidemia on atorvastatin Hypothyroidism on Synthroid Admit the patient, order home medication losartan levothyroxine atorvastatin Effexor on Farxiga, -Plan of care discussed at length with patient at bedside HPI Jeanmarie Garcia is a 73 y.o. female with past medical history significant for hypertension, adjustment disorder, diabetes mellitus, dyslipidemia, hypothyroidism, presented to the hospital she choked on her food, had CT scan which showed foreign body in the left main bronchus, pulmonary is aware, ED COURSE ED Course as of 09/15/232016 Sat Sep 15, 2023 4501 I independently reviewed the patient's CT chest. Appears to have a foreign body in the left mainstem bronchus. Still pending official radiology read [DW] [address] Roy from pulmonology. Plan will be for bronchoscopy tomorrow morning and admission to the hospitalist for preoperative clearance. Also recommended covering with Unasyn. I spoke with Dr. Boswell from radiology who will amend his read that there is a foreign body in the right mainstem bronchus [DW] 1845 I updated the patient on the results of the workup and plan of care for bronchoscopy tomorrow. She is agreeable to go forward at this point with hospitalization. Patient lives at a facility. I see that she has some psychiatric illness, thyroid disease, and possibly coronary disease as well. Ordering some screening labs and paged the hospitalist to discuss admission [DW] [address] Mesa who accepts patient for admission [DW] 2015 CBC shows mild leukocytosis in his otherwise unremarkable. Metabolic panel shows mild elevation in creatinine, and is otherwise reassuring. Coagulation studies are within normal limits. Lactate within normal limits, lessening concern for severe sepsis. BNP within normal limits, lessening concern for acute heart failure. Thyroid panel unremarkable. [DW] ED Course User Index [DW] Franko White, Clinical Impressions as of 09/15/23 2017 Foreign body in bronchus, initial encounter ED TRIAGE VITALS ED Triage Vitals [09/15/23 1601] Temp Heart Rate Resp BP SpO2 37.2 C (99 F) 83 20 125/79 95 % Temp Source Heart Rate Source Patient Position BP Location FiO2 (%) Oral Pulse Ox Sitting Right arm -- History reviewed. No pertinent past medical history. No past surgical history on file. Allergy: Patient has no known allergies. Prior to Admission medications Not on File Social History: History reviewed. No pertinent family history. Review of Systems As per HPI; otherwise reviewed and negative per 10-pt review. Exam BP 120/65 Pulse 67 Temp 37.2 C (99 F) (Oral) Resp 18 SpO2 97% No intake or output data in the 24 hours ending 09/15/232003 General Appearance: Well-developed, well-nourished. Alert, cooperative, no acute cardiac or respiratory distress Head: Normocephalic, atraumatic Eyes: PERRL, conjunctiva/corneas clear, EOMI Nose: Nares normal, no drainage Throat: Lips and tongue normal; oral mucosa appears moist Neck: Supple, trachea midline, no cervical or supraclavicular adenopathy Lungs: normal breath sounds bilaterally; no wheezes, rhonchi, rales, or crackles; respirations unlabored Heart: Regular rate and rhythm, S1 and S2 normal, no murmur Abdomen: Soft, non-tender, bowel sounds active all four quadrants; no rigidity, rebound tenderness, guarding noted Extremities: Extremities normal, atraumatic, no cyanosis or pedal edema Pulses: Radial and dorsal pedis pulses present and equal bilaterally Skin: [place], warm, dry; no rashes or lesions Neurologic: CNII-XII intact, normal strength and sensation throughout Psychiatric: Patient awake, alert, oriented x 3; mood appears appropriate Laboratory Data Recent Results (from the past 24 hour(s)) CBC auto differential Collection Time: 09/15/23 6:55 PM Result Value Ref Range White Blood Cells 11.9 (H) 4.0 - 11.0 X10E9/L RBC count 4.30 3.80 - 5.20 X10E12/L Hemoglobin 12.3 11.7 - 15.5 g/dL Hematocrit 38.0 35 - 47 % MCV 88 80 - 100 fL MCH 28.7 27 - 34 pg MCHC 32.5 32 - 36 g/dL RDW 15.0 11.5 - 15.0 % Platelets 229 150 - 450 X10E9/L MPV 8.2 7 - 12 fL % neutrophils 68.4 % % lymphocytes 20.8 % % monocytes 6.2 % % eosinophils 4.1 % % Basophils 0.5 % Neutrophils Absolute (A) 8.1 (H) 1.5 - 6.6 X10E9/L Lymphocytes Absolute 2.5 1.0 - 3.5 X10E9/L Monocytes Absolute 0.7 0 - 0.9 X10E9/L Eosinophils Absolute 0.5 (H) 0.0 - 0.4 X10E9/L Basophils Absolute 0.1 0.0 - 0.2 X10E9/L Protime & INR Collection Time: 09/15/23 6:55 PM Result Value Ref Range Protime 11.5 9.8 - 13.2 sec Inr 1.0 0.8 - 1.1 APTT Collection Time: 09/15/23 6:55 PM Result Value Ref Range aPTT 29 26 - 37 sec Thyroid profile includes TSH FT4 Collection Time: 09/15/23 6:55 PM Result Value Ref Range TSH 1.26 0.49 - 4.67 uIU/mL T4, free 0.84 0.61 - 1.60 ng/dL Magnesium Collection Time: 09/15/23 6:55 PM Result Value Ref Range Magnesium 2.1 1.8 - 2.6 mg/dL Comprehensive metabolic panel Collection Time: 09/15/23 6:55 PM Result Value Ref Range Sodium 142 134 - 146 mmol/L Potassium, Bld 4.1 3.5 - 5.0 mmol/L Chloride 105 98 - 109 mmol/L CO2 29 22 - 32 mmol/L Anion gap 8 5 - 15 mmol/L BUN 25 5 - 27 mg/dL Creatinine 1.04 (H) 0.40 - 1.00 mg/dL Glucose 101 (H) 65 - 99 mg/dL Calcium 9.1 8.5 - 10.5 mg/dL Total Protein 7.5 6.0 - 8.0 g/dL Albumin 4.0 3.2 - 5.3 g/dL Alkaline Phosphatase 97 39 - 130 U/L AST 16 0 - 41 U/L ALT 19 0 - 31 U/L Total bilirubin 0.4 0.3 - 1.2 mg/dL eGFR (CKD-EPI)non-race dependent 57 (L) >59 ml/min/1.73sq.m Lactate w/ Reflex Collection Time: 09/15/23 6:55 PM Result Value Ref Range Lactate w/ Reflex 0.8 0.4 - 2.0 mmol/L B-type natriuretic peptide Collection Time: 09/15/23 6:55 PM Result Value Ref Range BNP 20 <100.0 pg/mL Imaging Imaging has been reviewed in detail and can be seen in full via EMR. Imaging: CT chest without contrast Addendum Date: 09/15/2023 *ADDENDUM*Upon targeted retrospective review, small filling defect within bronchus intermedius, measures approximately 6 mm; can be seen with aspiration, inspissated mucous plugging, etc. Finalized by Rui Boswell MD on 09/15/2023 6:40 PM Result Date: 09/15/2023 CLINICAL HISTORY: Aspiration pneumonia. COMPARISON: None. TECHNIQUE: CT chest was performed without the use of IV contrast. Automated exposure control was utilized. FINDINGS: Limited evaluation of the hilar regions and vessels in the absence of IV contrast. LUNG/PLEURA: Probable tracheobronchomalacia. Mosaic attenuation. Bandlike left basilar atelectasis/scarring. No focal consolidation or effusion. No pneumothorax. HEART and GREAT VESSELS: Heart is normal in size. Trace pericardial fluid. Moderate coronary calcification. No pericardial effusion. Ascending aorta measures approximately 3.8 cm on this nondedicated study. MEDIASTINUM and LYMPH NODES: No enlarged axillary or mediastinal lymph nodes. Esophagus is nondilated. UPPER ABDOMEN: Focal soft tissue fullness of the mid pancreatic body. Right hemicolon dilatation up to approximately 7-8 cm. A 3 cm lesion of the left kidney, 30-32 Hounsfield units, indeterminate.. Cholecystectomy. Diastases of the upper rectus. MUSCULOSKELETAL AND LOWER NECK Postsurgical changes of the thyroid. No acute osseous abnormality. IMPRESSION: 1. No focal consolidation or other evidence for aspiration. 2. Partially imaged large bowel dilatation. Equivocal soft tissue fullness in the mid pancreatic body. Indeterminate left renal mass. Short-term CT of the abdomen/pelvis (with contrast) recommended. All CT scans at this facility use dose modulation, iterative reconstruction, and/or weight based dosing when appropriate to reduce radiation dose to as low as reasonably achievable. Finalized by Rui Boswell MD on 09/15/2023 5:[address] chest without contrast Addendum: *ADDENDUM*Upon targeted retrospective review, small filling defect within bronchus intermedius, measures approximately 6 mm; can be seen with aspiration, inspissated mucous plugging, etc. Finalized by Rui Boswell MD on 09/15/2023 6:40 PM Narrative: CLINICAL HISTORY: Aspiration pneumonia. COMPARISON: None. TECHNIQUE: CT chest was performed without the use of IV contrast. Automated exposure control was utilized. FINDINGS: Limited evaluation of the hilar regions and vessels in the absence of IV contrast. LUNG/PLEURA: Probable tracheobronchomalacia. Mosaic attenuation. Bandlike left basilar atelectasis/scarring. No focal consolidation or effusion. No pneumothorax. HEART and GREAT VESSELS: Heart is normal in size. Trace pericardial fluid. Moderate coronary calcification. No pericardial effusion. Ascending aorta measures approximately 3.8 cm on this nondedicated study. MEDIASTINUM and LYMPH NODES: No enlarged axillary or mediastinal lymph nodes. Esophagus is nondilated. UPPER ABDOMEN: Focal soft tissue fullness of the mid pancreatic body. Right hemicolon dilatation up to approximately 7-8 cm. A 3 cm lesion of the left kidney, 30-32 Hounsfield units, indeterminate.. Cholecystectomy. Diastases of the upper rectus. MUSCULOSKELETAL AND LOWER NECK Postsurgical changes of the thyroid. No acute osseous abnormality. IMPRESSION: 1. No focal consolidation or other evidence for aspiration. 2. Partially imaged large bowel dilatation. Equivocal soft tissue fullness in the mid pancreatic body. Indeterminate left renal mass. Short-term CT of the abdomen/pelvis (with contrast) recommended. All CT scans at this facility use dose modulation, iterative reconstruction, and/or weight based dosing when appropriate to reduce radiation dose to as low as reasonably achievable. Finalized by Rui Boswell MD on 09/15/2023 5:47 PM Electronically signed by: MD Smita FERREIRA M.D. [facility] Hospital[facility] This note was completed using a voice manufacturing quality engineer system. Every effort was made to ensure accuracy. However, inadvertent computerized manufacturing quality engineer errors may be present. [employer] Work Phone: 09-15-2023 Progress note Formatting of t his note might be different from the original. Reviewed CT with ER staff. Agree there is an obstructing lesion in the right BI. Will keep NPO after MN, remain on 2L, start unasyn and request our hospitalist team evaluate tonight and review if and additional clearance needed (cardiology)/ labs prior to anesthesia for bronch. Discussed with Dr. Montague ICU that will possibly bronch tomorrow if patient does not expectorate on her own tonight. [employer] Work Phone: 09-15-2023 Physician Emergency department Note Images from the original note were not included. History Chief Complaint Patient presents with Choking Foreign Body in Throat 35-year-old female who presented to [facility] via EMS after choking on chicken earlier today. For EMS personnel, patient received Heimlich maneuver x4 after which airway became clear. She was started on nasal cannula 2 L due to some shortness for breath. Talking to her now, she believes that she still has something stuck in her throat. Never had any chicken come out after Heimlich. Was in a sitting position at table when episode happened. She denies any nausea, vomiting, fever, chills, chest pain. She thinks her voice is roughly the same as it always is. Foreign Body in Throat Problem List Items Addressed This Visit Respiratory * (Principal) Foreign body in bronchus, initial encounter - Primary History reviewed. No pertinent past medical history. No past surgical history on file. Travel Screening No screening recorded since 09/14/23 1551 Travel History Travel since 08/15/23 No documented travel since 08/15/23 History reviewed. No pertinent family history. Social History Substance and Sexual Activity Drug Use Not on file Review of Systems Constitutional: Negative for activity change and diaphoresis. HENT: Negative for congestion. Respiratory: Positive for choking. Negative for apnea, cough, chest tightness, shortness of breath, wheezing and stridor. Cardiovascular: Negative for chest pain/discomfort, palpitations, leg swelling and syncope. Gastrointestinal: Negative for abdominal distention and abdominal pain. Neurological: Negative for dizziness, seizures, light-headedness and numbness. Psychiatric/Behavioral: Negative for agitation, behavioral problems and confusion. Physical Exam ED Triage Vitals [09/15/23 1601] Temp Heart Rate Resp BP SpO2 37.2 C (99 F) 83 20 125/79 95 % Temp Source Heart Rate Source Patient Position BP Location FiO2 (%) Oral Pulse Ox Sitting Right arm -- Vitals: 09/15/23 1702 09/15/23 1845 09/15/23 1900 09/15/232013 BP: 136/90 120/65 131/84 Temp: TempSrc: Pulse: 81 67 81 Resp: 18 18 18 SpO2: 93% 97% 97% MAP (mmHg): 104 77 98 Height: 162.6 cm (5' 4 ) Physical Exam Constitutional: Appearance: Normal appearance. She is normal weight. HENT: Head: Normocephalic and atraumatic. Cardiovascular: Rate and Rhythm: Normal rate. Pulses: Normal pulses. Heart sounds: Normal heart sounds. Pulmonary: Effort: Pulmonary effort is normal. Breath sounds: Normal breath sounds. Comments: No pain to palpation over ribs for chest wall Lungs remain clear to auscultation bilaterally Airway appears grossly pain. Patient is able to talk in full sentences. Upon oropharyngeal exam, no obvious obstructing body present. Abdominal: General: Abdomen is flat. Palpations: Abdomen is soft. Skin: General: Skin is warm and dry. Coloration: Skin is not jaundiced. Findings: No bruising. Neurological: General: No focal deficit present. Mental Status: She is alert. She is disoriented. Psychiatric: Mood and Affect: Mood normal. Behavior: Behavior normal. Thought Content: Thought content normal. Procedure Procedures Re-Evaluation Re-Evaluation ED Course ED Course as of 09/15/232023 Sat Sep 15, 2023 1745 I independently reviewed the patient's CT chest. Appears to have a foreign body in the left mainstem bronchus. Still pending official radiology read [DW] [address] Roy from pulmonology. Plan will be for bronchoscopy tomorrow morning and admission to the hospitalist for preoperative clearance. Also recommended covering with Unasyn. I spoke with Dr. Boswell from radiology who will amend his read that there is a foreign body in the right mainstem bronchus [DW] 184 I updated the patient on the results of the workup and plan of care for bronchoscopy tomorrow. She is agreeable to go forward at this point with hospitalization. Patient lives at a facility. I see that she has some psychiatric illness, thyroid disease, and possibly coronary disease as well. Ordering some screening labs and paged the hospitalist to discuss admission [DW] [address] Mesa who accepts patient for admission [DW] 2015 CBC shows mild leukocytosis in his otherwise unremarkable. Metabolic panel shows mild elevation in creatinine, and is otherwise reassuring. Coagulation studies are within normal limits. Lactate within normal limits, lessening concern for severe sepsis. BNP within normal limits, lessening concern for acute heart failure. Thyroid panel unremarkable. [DW] ED Course User Index [DW] Franko White DO Clinical Impressions as of 09/15/232023 Foreign body in bronchus, initial encounter MDM Medical Decision Making Patient is 73-year-old female presenting with recent aspiration episode after receiving Heimlich maneuver x4. Her airway appears grossly patent. She has not in any stridor or respiratory distress. Examination is largely unremarkable. No evidence of rib fracture or ongoing stridor, hypoxemia. At this point, it is possible that foreign body remains present inpatient. We will proceed with imaging to evaluate whether this is something that we will require potential endoscopic intervention. Patient guardian has been made aware of patient's current visit to [facility]. Amount and/or Complexity of Data Reviewed Labs: ordered. Radiology: ordered. Risk Prescription drug management. I, René Monroe (scribe), documented on behalf of Dr. White. 2359 Jeanmarie Garcia is a 73 y.o. female presenting to the ED for chief complaint of chocking w/ a foreign body in the throat. Pt reports choking on chicken. They were given the Heimleinch manuever with relief but still feels as if it is stuck in their throat. They report that everything else feels normal. Dr. White personally saw and evaluated the patient. Dr. White discussed the plan with the LEONIDES/ Resident. Dr. White personally made/approved the management plan for this patient and takes responsibility for the patient management. Exam findings as follows: Constitutional: Awake and alert HENT: Normocephalic and atraumatic, oral pharynx clear Eyes: Conjunctiva unremarkable Cardiovascular: Heart rate regular Pulmonary: Easy work of breathing, no strider, speaking in full sentences Abdominal: Flat and non-distended : tolerating own secretions Skin: Warm and dry Musculoskeletal: Moving all extremities spontaneously RESULTS Labs: Labs Reviewed CBC WITH AUTO DIFFERENTIAL - Abnormal; Notable for the following components: Result Value White Blood Cells 11.9 (*) Neutrophils Absolute (A) 8.1 (*) Eosinophils Absolute 0.5 (*) All other components within normal limits COMPREHENSIVE METABOLIC PANEL - Abnormal; Notable for the following components: Creatinine 1.04 (*) Glucose 101 (*) eGFR (CKD-EPI)non-race dependent 57 (*) All other components within normal limits PROTIME & INR APTT THYROID PROFILE INCLUDES TSH FT4 MAGNESIUM LACTATE W/ REFLEX B-TYPE NATRIURETIC PEPTIDE Radiology: CT chest without contrast Addendum Date: 09/15/2023 *ADDENDUM*Upon targeted retrospective review, small filling defect within bronchus intermedius, measures approximately 6 mm; can be seen with aspiration, inspissated mucous plugging, etc. Finalized by Rui Boswell MD on 09/15/2023 6:40 PM Result Date: 09/15/2023 CLINICAL HISTORY: Aspiration pneumonia. COMPARISON: None. TECHNIQUE: CT chest was performed without the use of IV contrast. Automated exposure control was utilized. FINDINGS: Limited evaluation of the hilar regions and vessels in the absence of IV contrast. LUNG/PLEURA: Probable tracheobronchomalacia. Mosaic attenuation. Bandlike left basilar atelectasis/scarring. No focal consolidation or effusion. No pneumothorax. HEART and GREAT VESSELS: Heart is normal in size. Trace pericardial fluid. Moderate coronary calcification. No pericardial effusion. Ascending aorta measures approximately 3.8 cm on this nondedicated study. MEDIASTINUM and LYMPH NODES: No enlarged axillary or mediastinal lymph nodes. Esophagus is nondilated. UPPER ABDOMEN: Focal soft tissue fullness of the mid pancreatic body. Right hemicolon dilatation up to approximately 7-8 cm. A 3 cm lesion of the left kidney, 30-32 Hounsfield units, indeterminate.. Cholecystectomy. Diastases of the upper rectus. MUSCULOSKELETAL AND LOWER NECK Postsurgical changes of the thyroid. No acute osseous abnormality. IMPRESSION: 1. No focal consolidation or other evidence for aspiration. 2. Partially imaged large bowel dilatation. Equivocal soft tissue fullness in the mid pancreatic body. Indeterminate left renal mass. Short-term CT of the abdomen/pelvis (with contrast) recommended. All CT scans at this facility use dose modulation, iterative reconstruction, and/or weight based dosing when appropriate to reduce radiation dose to as low as reasonably achievable. Finalized by Rui Boswell MD on 09/15/2023 5:47 PM NURSING NOTES AND VITALS REVIEWED The nursing notes within the ED encounter and vital signs as below have been reviewed. BP 131/84 Pulse 81 Temp 37.2 C (99 F) (Oral) Resp 18 Ht 162.6 cm (5' 4 ) SpO2 97% PROGRESS NOTES The plan of care has been discussed with patient including today s results, in addition to providing specific details regarding counseling pertaining to the diagnosis and prognosis. All questions were answered at this time and they are agreeable with the plan --- ADDITIONAL PROVIDER NOTES --- At this time the patient has objective evidence of an acute process requiring hospitalization or inpatient management. Medications sodium chloride 0.9 % flush 3 mL (has no administration in time range) ampicillin-sulbactam (UNASYN) 3,000 mg in sodium chloride 0.9 % 100 mL IVPB-MBP (has no administration in time range) losartan (COZAAR) tablet 50 mg (has no administration in time range) levothyroxine (SYNTHROID, LEVOTHROID) tablet 100 mcg (has no administration in time range) atorvastatin (LIPITOR) tablet 10 mg (has no administration in time range) dapagliflozin propanediol (FARXIGA) tablet 10 mg (has no administration in time range) ampicillin-sulbactam (UNASYN) 3,000 mg in sodium chloride 0.9 % 100 mL IVPB-MBP (3,000 mg intravenous New Bag 09/15/231915) Medication List None Diagnosis: 1. Foreign body in bronchus, initial encounter Disposition: Patient's disposition: Admit Patient's condition is stable. Critical Care time: 0 Provider Statement By electronically signing this emergency patient record, the Emergency Physician/BUS AND TROLLEY INSPECTING DISPATCHER/PA-C attests that all entries made into the electronic medical record by azeem Villavicencio prior to the Physician/BUS AND TROLLEY INSPECTING DISPATCHER/PA-C signature reflect an accurate accounting of the evaluation and care rendered by that Emergency Physician/BUS AND TROLLEY INSPECTING DISPATCHER/PA-C. The Emergency Physician/BUS AND TROLLEY INSPECTING DISPATCHER/PA-C assumes full responsibility for those entries. The Emergency Physician/BUS AND TROLLEY INSPECTING DISPATCHER/PA-C also attests that any patient testing or treatment that was instituted by nursing staff in accordance to Emergency Department Preemptive Guidelines have been reviewed and unless so stated elsewhere in this patient chart, the Physician/BUS AND TROLLEY INSPECTING DISPATCHER/PA-C agrees with the testing and care provided. Provider Statement I performed a history and physical exam on this patient and discussed his or her management with the resident. I reviewed the residents's note and agree with the documented findings and plan of care with the following exceptions: None Provider Procedure Statement: For procedures performed by the resident I was physically present during the ames or critical portions of the procedure. Provider Statement: By electronically signing this emergency patient record, the Emergency Physician/BUS AND TROLLEY INSPECTING DISPATCHER/PA-C attests that all entries made into the electronic medical record by the scribe prior to the Physician/BUS AND TROLLEY INSPECTING DISPATCHER/PA-C signature reflect an accurate accounting of the evaluation and care rendered by that Emergency Physician/BUS AND TROLLEY INSPECTING DISPATCHER/PA-C. The Emergency Physician/BUS AND TROLLEY INSPECTING DISPATCHER/PA-C assumes full responsibility for those entries. René Monroe 09/15/23 1610 René Monroe 09/15/231957 René Monroe 09/15/232024 Franko White DO 09/15/232245 [facility] 09-15-2023 Emergency department Triage note Pt presents to ED by EMS from nursing facility. Per EMS pt was eating lunch and choked on some chicken. EMS stated pt was given heimlich maneuver which opened her airway but nothing was expelled from throat. EMS reports pt having a dry cough for EMS ride and upon arrival. . Pt VSS and no distress noted. [facility] 09-15-2023 Emergency department Note Bed: 33 Expected date: Expected time: Means of arrival: Comments: 73 y/o F Choked while eating lunch 98% 2L 80 18 129/76 ETA [address] [facility] Jeanmarie Garcia 1950 Choking episode at [facility], received heimlich 4x, pt still feels something stuck, hx stroke Dr. Pate A&O Assisted living 98% RA Dry coughing 20g L FA No meds [facility] Evaluation + Plan note No data available for this section [facility] Evaluation note No Information [facility] [employer] Other Evaluation note Diagnosis Foreign body in bronchus, initial encounter- Primary Foreign body in bronchus, initial encounter documented in this encounter [facility] N[facility] - Reported* Type Description Date Medical History schizophrenia Medical History Hypothyroidism Medical History COPD Medical History Hypertension Medical History CAD Surgical History thyroidectomy Surgical History exploratory lap, SBO [facility] [employer] Other History general N[facility]ative - [facility] Other Hospital Discharge instructions No data available for this section [facility] Discharge instructionsNot on file documented in this encounterProProm[facility] SystemProgress note No data available for this section [facility] Summary Purpose Family History No [...] FoundNo Family History Records Found Advance Directives Date Activated Date Inactivated Comments 09/15/2023 7:59 PM 09/17/2023 6:58 PM Healthcare Agents on File Name Relationship Healthcare [facility] Agent Hospital Course Note [facility] SURGERY Clinical Discharge Summary PERSON INFORMATION Name JEANMARIE GARCIA Age 68 Years 1950 Sex FEMALE Language Nepali PCP GERALD FUENTES Marital Status Single Med Service Ambulatory Surgery Acct# Arrival 05/13/2019 05:53:00 Visit Reason SURGERY - INCISIONAL VENTRAL HERNIA REPAIR WITH MESH [facility] LOS 007 21:08 Address: [address] [place] [address] Comment: PROVIDER INFORMATION VITALS INFORMATION Vital Sign [...] as needed as needed for pain. acetaminophen-hydrocodone ([place] 5 mg-325 mg oral tablet) 1 tab(s) Oral Every 6 hours as needed for pain. Refills: 0. a (more content not included)... Reason for Referral Specialty Diagnoses / Procedures Referred By Anastasiia ingram Referred To Contact Diagnoses Foreign body in bronchus, initial encounter Procedures Follow-up with primary care provider Keysha Reynoso MD [address] [place] [address] Referral ID Status Reason Start Date Expiration Date V isits Requested Visits Authorized [id number] Pending Review 09/17/2023 09/16/2024 1 1 Additional Source Comments INFORMATION SOURCE (unrecogn ized section and content) DATE CREATED AUTHOR 09/27/2017 [facility] DATE CREATED AUTHOR AUTHOR'S ORGANIZ ATION 01/11/2019 [facility] DATE CREATED AUTHOR AUTHOR'S ORGANIZ ATION 11/07/2019 [facility] DATE CREATED AUTHOR AUTHOR'S ORGANIZ ATION 05/13/2022 [facility] DATE CREATED AUTHOR AUTHOR'S ORGANIZ ATION 09/02/2023 [facility] DATE CREATED AUTHOR AUTHOR'S ORGANIZ ATION 11/15/2023 [facility] DATE CREATED AUTHOR AUTHOR'S ORGANIZ ATION 05/09/2024 [facility] DATE CREATED AUTHOR AUTHOR'S ORGANIZ ATION 05/16/2024 [facility] REASON FOR VISIT (unrecogniz ed section and content) Reason Comments Choking Foreign Body in Throat Specialty Diagnoses / Procedures Referred By Anastasiia ingram Referred To Contact Diagnoses Foreign body in bronchus, initial encounter Smita Mesa MD [address] [place] [id number] Referral ID Status Reason Start Date Expiration Date Visits Re quested Visits Authorized [id number] 1 1 [facility] AppointmentReview DM plan of care Patient Care team informatio n (unrecognized section and content) Reliability Technicians Relationship Specialty Start Date End Date Madhuri RezaDO [address] [place] [address] PCP - General 03/23/17 Scheduled Active and Recently Administ ered Medications (unrecognized section and content) Medication Order 09/15/2023 09/16/2023 09/17/2023 ampicillin-sulbactam (UNASYN) 3,000 mg in sodium chloride 0.9 % 100 mL IVPB-MBP (COMPLETED) 3,000 mg, intravenous, at 200 mL/hr, Administer over 30 Minutes, Once, On 09/15/23 at 1840, For 1 dose, ADD-VANTAGE/MBP- Discard 8 hours after activating; dissolve drug prior to administration., Indication: Hospital-acquired pneumonia 191 (New Bag - Provider: Ariel Palacios RN)1946 (Stop Bag - Provider: Ariel Palacios RN) ampicillin-sulbactam (UNASYN) 3,000 mg in sodium chloride 0.9 % 100 mL IVPB-MBP 3,000 mg, intravenous, at 200 mL/hr, Administer over 30 Minutes, Every 6 hours, First dose (after last reorder) on 09/16/23 at 0100, ADD-VANTAGE/MBP- Discard 8 hours after activating; dissolve drug prior to administration., Indication: Hospital-acquired pneumonia 0138 (New Bag - Provider: Sol Pino RN)0208 (Stop Bag - Provider: Sol Pino RN)0644 (New Bag - Provider: Sol Pino RN)0714 (Stop Bag - Provider: Marah Wei, YOHSI)1243 (New Bag - Provider: Marah Wei, YOSHI)1313 (Stop Bag - Provider: Marah Wei, RN)1506 (JUN Hold - Provider: Automatic Transfer Provider - Reason: Patient not available)1522 (MAR Unhold - Provider: Automatic Transfer Provider)1817 (New Bag - Provider: Marah Wei RN)1847 (Stop Bag - Provider: Marah Wei RN) 0234 (New Bag - Provider: Adriana Patel RN)0304 (Stop Bag - Provider: Adriana Patel, RN)0732 (New Bag - Provider: Leila Pino, RN)0802 (Stop Bag - Provider: Leila Pino RN)1254 (New Bag - Provider: Siomara Bryant, RN)1324 (Stop Bag - Provider: Siomara Bryant, RN) atorvastatin (LIPITOR) tablet 10 mg 10 mg, oral, Nightly, First dose on 09/15/23 at 2200, Look-alike/sound-alike medication - verify indication for use. 2114 (Given - Provider: Ariel Palacios, RN) 1506 (MAR Hold - Provider: Automatic Transfer Provider - Reason: Patient not available)1522 (MAR Unhold - Provider: Automatic Transfer Provider)2159 (Given - Provider: Adriana Patel RN) benztropine (COGENTIN) tablet 0.5 mg 0.5 mg, oral, 2 times daily, First dose on 09/16/23 at 0900 1029 (Given - Provider: Marah Wei RN)1506 (MAR Hold - Provider: Automatic Transfer Provider - Reason: Patient not available)1522 (MAR Unhold - Provider: Automatic Transfer Provider)2159 (Given - Provider: Adriana Patel RN) 0922 (Given - Provider: Leila Pino, RN) cholecalciferol (vitamin D3) tablet 2,000 Units 2,000 Units, oral, Daily, First dose on 09/16/23 at 0900 1029 (Given - Provider: Marah Wei RN)1506 (MAR Hold - Provider: Automatic Transfer Provider - Reason: Patient not available)1522 ([facility] Unhold - Provider: Automatic Transfer Provider) 0922 (Given - Provider: Leila Pino, RN) dapagliflozin propanediol (FARXIGA) tablet 10 mg 10 mg, oral, Daily, First dose on 09/15/23 at 2014 2115 (Given - Provider: Ariel Palacios RN) 1029 (Given - Provider: Marah Wei RN)1506 (MAR Hold - Provider: Automatic Transfer Provider - Reason: Patient not available)1522 (MAR Unhold - Provider: Automatic Transfer Provider) 0922 (Given - Provider: Leila Pino, RN) levothyroxine (SYNTHROID, LEVOTHROID) tablet 100 mcg 100 mcg, oral, Daily, First dose on 09/16/23 at 0600, Look-alike/sound-alike medication. Verify indication for use Administer on empty stomach at least ONE hour before or TWO hours after food Enteral Feeding: For 7 days or less of tube feeding- do NOT hold tube feedings, after 7 days- hold tube feedings ONE hour before and ONE hour after administration DOES NOT APPLY TO NEONATES Monitor thyroid function tests weekly 0541 (Given - Provider: Sol Pino RN)1506 (MAR Hold - Provider: Automatic Transfer Provider - Reason: Patient not available)1522 (MAR Unhold - Provider: Automatic Transfer Provider) 0626 (Given - Provider: Adriana Patel RN) losartan (COZAAR) tablet 50 mg 50 mg, oral, Daily, First dose on 09/15/23 at 2015, Look-alike/sound-alike medication - verify indication for use. 2115 (Given - Provider: Ariel Palacios RN) 1029 (Given - Provider: Marah Wei RN)1506 (MAR Hold - Provider: Automatic Transfer Provider - Reason: Patient not available)1522 (MAR Unhold - Provider: Automatic Transfer Provider) 0922 (Given - Provider: Leila Pino, RN) venlafaxine (EFFEXOR) tablet 37.5 mg 37.5 mg, oral, Daily, First dose on 09/16/23 at 0900, Look-alike/sound-alike medication - verify indication for use. 1029 (Given - Provider: Marah Wei RN)1506 (MAR Hold - Provider: Automatic Transfer Provider - Reason: Patient not available)1522 (MAR Unhold - Provider: Automatic Transfer Provider) 0922 (Given - Provider: Leila Pino, RN) Continuous Medication Order 09/15/2023 09/16/2023 09/17/2023 sodium chloride 0.9 % infusion (CANCELED) 75 mL/hr, intravenous, Continuous, Starting on 09/16/23 at 0045 0045 (Continue to Other Facility/Home/Admission - Provider: Sol Pino RN)1234 (Stop Bag - Provider: Marah Wei RN)1242 (New Bag - Provider: Marah Wei RN)1522 (MAR Hold - Provider: Automatic Transfer Provider - Reason: Patient not available)1522 ([facility] Unhold - Provider: Automatic Transfer Provider) PRN Medication Order 09/15/2023 09/16/2023 09/17/2023 acetaminophen (TYLENOL) tablet 650 mg 650 mg, oral, 3 times daily PRN, mild pain - pain scale 1-3, moderate pain - pain scale 4-6, Temperature greater than 38.3 C, Starting on 09/16/23 at 0036, For 2 doses, [Warning: Total Acetaminophen not to exceed more than 4 grams (4000 mg) in 24 hours] 1506 ([facility] Hold - Provider: Automatic Transfer Provider - Reason: Patient not available)1522 ([facility] Unhold - Provider: Automatic Transfer Provider) barium sulfate (VARIBAR PUDDING) 40 % (w/v), 30% (w/w) oral paste 60 mL (COMPLETED) 60 mL, oral, Once in imaging, contrast, barium sulfate (VARIBAR PUDDING) 40 % (w/v), 30% (w/w) oral paste, Starting on 09/17/23 at 0844, For 1 dose 0849 (Given - Provid er: Linda Milks, CCC-COAL TRAMMER) barium sulfate (VARIBAR THIN) 81 % (w/w) powder 148 g (COMPLETED) 148 g, oral, Once in imaging, contrast, barium sulfate (VARIBAR THIN) 40 % (w/v) powder, Starting on 09/17/23 at 0844, For 1 dose 0849 (Given - Provid er: Linda Milks, CCC-COAL TRAMMER) dextrose (GLUTOSE) 40 % gel 15 g 15 g, oral, As needed, low blood sugar, blood glucose less than 70 mg/dL, Starting on 09/16/23 at 0036, If patient conscious and taking PO. If blood glucose is not greater than 70 mg/dL after initial treatment, repeat treatment. 1506 ([facility] Hold - Provider: Automatic Transfer Provider - Reason: Patient not available)1522 ([facility] Unhold - Provider: Automatic Transfer Provider) dextrose 5 % (D5W) infusion 100 mL/hr, intravenous, Continuous PRN, blood glucose less than 70 mg/dL, Starting on 09/16/23 at 0036, Use immediately following dextrose 50% or glucagon treatment for patients who are unconscious or NPO. Contact prescriber for additional orders. If blood glucose is not greater than 70 mg/dL after initial treatment, repeat treatment. 1506 ([facility] Hold - Provider: Automatic Transfer Provider - Reason: Patient not available)1522 ([facility] Unhold - Provider: Automatic Transfer Provider) dextrose 50 % in water (D50W) 50% solution 25 mL 25 mL, intravenous, As needed, low blood sugar, blood glucose less than 70 mg/dL and unconscious or NPO with IV access, Starting on 09/16/23 at 0036, Push over 1-3 minutes STAT. If conscious and not NPO, immediately follow with meal tray or high protein (7 grams) snack if tray not available. If NPO, initiate 5% dextrose in water at 100 mL/hr and contact prescriber for additional orders. If blood glucose is not greater than 70 mg/dL after initial treatment, repeat treatment. VESICANT (RED) Warning: HYPERTONIC solution. 1506 ([facility] Hold - Provider: Automatic Transfer Provider - Reason: Patient not available)1522 ([facility] Unhold - Provider: Automatic Transfer Provider) glucagon HCL injection 1 mg 1 mg, intramuscular, As needed, low blood sugar, blood glucose less than 70 mg/dL and unconscious or NPO without IV access., Starting on 09/16/23 at 0036, If conscious and not NPO, immediately follow with meal tray or high protein (7Grams) snack if tray not available. If NPO, initiate IV 5% Dextrose/Water at 100 mL/hr and contact prescriber for additional orders. If blood glucose is not greater than 70 mg/dL after initial treatment, repeat treatment. 1506 ([facility] Hold - Provider: Automatic Transfer Provider - Reason: Patient not available)1522 ([facility] Unhold - Provider: Automatic Transfer Provider) ondansetron (PF) (ZOFRAN) injection 4 mg 4 mg, intravenous, Every 8 hours PRN, nausea, vomiting, Starting on 09/16/23 at 0036, Administer over 2-5 minutes. 1506 ([facility] Hold - Provider: Automatic Transfer Provider - Reason: Patient not available)1522 ([facility] Unhold - Provider: Automatic Transfer Provider) sennosides-docusate sodium (SENOKOT-S) 8.6-50 mg 1 tablet 1 tablet, oral, Every 12 hours PRN, constipation, Starting on 09/16/23 at 0036 1506 ([facility] Hold - Provider: Automatic Transfer Provider - Reason: Patient not available)1522 ([facility] Unhold - Provider: Automatic Transfer Provider) sodium chloride 0.9 % flush 3 mL 3 mL, intravenous, As needed, line care, before and after each intermittent use, Starting on 09/15/23 at 1837 1506 ([facility] Hold - Provider: Automatic Transfer Provider - Reason: Patient not available)1522 ([facility] Unhold - Provider: Automatic Transfer Provider) sodium chloride 0.9 % flush bag 25 mL, intravenous, at 100 mL/hr, Administer over 15 Minutes, As needed, line care, line care after IVPB administration, Starting on 09/16/23 at 0036 1506 ([facility] Hold - Provider: Automatic Transfer Provider - Reason: Patient not available)1522 ([facility] Unhold - Provider: Automatic Transfer Provider) 1254 (New Bag - Provider: Siomara Bryant, RN)1255 (Paused - Provider: Siomara Bryant, RN)1309 (Stop Bag - Provider: Siomara Bryant, RN)1325 (Restarted - Provider: Siomara Bryant, RN)1339 (KVO - Provider: Siomara Bryant, RN)1358 (Rate/Dose Verify - Provider: Siomara Bryant, RN) sodium chloride 0.9 % infusion 20 mL/hr, intravenous, Continuous PRN, to maintain patency of lines, Starting on 09/16/23 at 0036 1506 ([facility] Hold - Provider: Automatic Transfer Provider - Reason: Patient not available)1522 ([facility] Unhold - Provider: Automatic Transfer Provider) FOR RECORDS PERTAINING TO PATIENTS WHO ARE [...] BE BASED ON THE PRIMARY CLINICAL RECORDS. [facility]. provides no warranty or guarantee of the accuracy or completeness of information in this document.
[2024-07-06 08:48] LABS: Basophils Percent Auto 0.2 % (0.2-2.0); Eosinophils Absolute Auto 0.6 10^3/uL (0.0-0.7); Eosinophils Percent Auto 6.3 % (0.9-7.0); Hematocrit 39.3 % (36.0-48.0); Hemoglobin 12.8 g/dL (12.0-16.0); Immature Granulocytes Abs Auto 0.02 10^3/uL (0.00-0.03); Immature Granulocytes Pct Auto 0.2 % (0.0-0.5); Lymphocytes Absolute Auto 1.1 10^3/uL (1.2-3.8); Lymphocytes Percent Auto 12.4 % (20.5-60.0); Mean Corpuscular HGB Conc 32.6 g/dL (29.9-35.2); Mean Corpuscular Hemoglobin 29.4 pg (26.7-34.0); Mean Corpuscular Volume 90.1 fL (81.0-99.0); Mean Platelet Volume 11.2 fL (9.5-13.5); Monocytes Absolute Auto 0.4 10^3/uL (0.3-0.8); Monocytes Percent Auto 4.7 % (1.7-12.0); Neutrophils Absolute Auto 6.8 10^3/uL (1.4-6.5); Neutrophils Percent Auto 76.2 % (43.0-75.0); Platelet Count 198 10^3/uL (150-450); Red Blood Count 4.36 10^6/uL (4.20-5.40); Red Cell Distribution Width 14.3 % (11.0-15.0); White Blood Count 8.9 10^3/uL (4.0-11.0)
[2024-07-06 09:08] LABS: Anion Gap 15.6; BUN Creatinine Ratio 16.7; Calcium 9.4 mg/dL (8.5-10.1); Chloride 87 mmol/L (98-107); Estimated GFR (African America 26 (>=60 mL/min/1.73m^2); Estimated GFR (Non-African Ame 21 (>=60 mL/min/1.73m^2); Troponin I High Sensitivity 43.4 pg/mL (4.0-51.3)
[2024-07-06 09:13] LABS: Potassium 6.6 mmol/L (3.5-5.1); Sodium 121 mmol/L (136-145)
[2024-07-06 09:14] LABS: Glucose 1185 mg/dL (74-106)
[2024-07-06 09:37] LABS: Acetone NEGATIVE (NEGATIVE)
[2024-07-06] MEDS: INSULIN REGULAR, HUMAN (100 UNIT/ML) 10 ML MDV 10 UNIT IV ×2 (09:38→11:06)
[2024-07-06] MEDS: 0.9 % SODIUM CHLORIDE 1,000 ML 1000 ML IV ×2 (09:39→11:04)
[2024-07-06 09:50] LABS: pH VBG 7.241 (7.330-7.430)
[2024-07-06 09:51] LABS: PCO2 VBG 61.2 mmHg (40.0-52.0)
[2024-07-06 09:58] LABS: Bilirubin Urine NEGATIVE (NEGATIVE); Blood Urine NEGATIVE (NEGATIVE); Clarity Urine CLEAR (CLEAR); Color Urine LT. YELLOW (YELLOW); Glucose Urine UA >=1000 mg/dL (NEGATIVE); Ketones Urine NEGATIVE (NEGATIVE); Leukocyte Esterase Urine NEGATIVE (NEGATIVE); Nitrite Urine NEGATIVE (NEGATIVE); Protein Urine NEGATIVE (NEG/TRACE); Specific Gravity Urine <=1.005 (1.005-1.025); Urobilinogen Urine 0.2 EU/dL (0.2-1.0)
[2024-07-06 10:19] LABS: Bacteria Urine NONE SEEN #/HPF (NONE SEEN); Cast Seen? NONE SEEN #/LPF (NONE SEEN); Crystals Seen? None Seen #/HPF (None Seen); Mucus Urine NONE SEEN (NONE SEEN); RBC Urine 0-2 #/HPF (0-2); Squamous Epithelial Cell Urine NONE SEEN #/LPF (NONE/RARE); Urine Culture Indicated NO; WBC Urine 0-2 #/HPF (NONE SEEN)
[2024-07-06 10:53] LABS: Anion Gap 13.2; BUN Creatinine Ratio 16.9; Calcium 9.2 mg/dL (8.5-10.1); Carbon Dioxide 26.8 mmol/L (21.0-32.0); Chloride 91 mmol/L (98-107); Estimated GFR (African America 27 (>=60 mL/min/1.73m^2); Estimated GFR (Non-African Ame 22 (>=60 mL/min/1.73m^2)
[2024-07-06 10:54] LABS: Glucose 1110 mg/dL (74-106); Sodium 124 mmol/L (136-145)
[2024-07-06] MEDS: SODIUM POLYSTYRENE SULFON 15 GM/60 ML ORAL.SUSP KAYEXALATE 30 GM PO (11:11)
[2024-07-06 12:10] LABS: Magnesium 2.8 mg/dL (1.8-2.4); Phosphorus 5.6 mg/dL (2.6-4.7)
[2024-07-06 12:42] LABS: Anion Gap 12.6; BUN Creatinine Ratio 16.5; Carbon Dioxide 27.2 mmol/L (21.0-32.0); Chloride 101 mmol/L (98-107); Estimated GFR (African America 28 (>=60 mL/min/1.73m^2); Estimated GFR (Non-African Ame 23 (>=60 mL/min/1.73m^2); Potassium 4.8 mmol/L (3.5-5.1); Sodium 136 mmol/L (136-145)
[2024-07-06 12:46] LABS: Glucose 666 mg/dL (74-106)
--- NOTE | 2024-07-06 13:27 | P.HP_ITS ---
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 When I saw patient in the emergency room, she is difficult to understand, no history of stroke, she is near being told that this is her normal speech pattern after having thyroid surgery, only complaint really was fatigue, denied cough or chest pain or shortness of breath, no UTI symptoms no gastroenteritis symptoms other than her usual diarrhea Opioid HPI Opioid Management Most Recent Pain and Opioid Data: Last Pain Scale 9 07/06/24 17:20 07/06/24 Last Pain Assessment 07/06/24 18:00 Last MAR Pain Assessment 07/06/24 17:20 Last ORT Total Score 0 07/06/24 13:41 07/06/24 Last ORT Risk Category Low Risk 07/06/24 13:41 07/06/24 Review of Systems ROS Status of ROS 10 or more systems reviewed and unremark able except as noted in history and below [facility] Medical History (Updated 07/06/24 @ 10:01 by Carlos Gonzales RN) Hypothyroidism ?E03.9 - Hypothyroidism, unspecified (ICD-10) Anemia ?D64.9 - Anemia, unspecified (ICD-10) Major depressive disorder ?F32.9 - Major depressive disorder, single episode, unspecified (ICD-10) Schizoaffective disorder, bipolar type ?F25.0 - Schizoaffective disorder, bipolar type (ICD-10) Muscle weakness ?M62.81 - Muscle weakness (generalized) (ICD-10) GERD (gastroesophageal reflux disease) ?K21.9 - Gastro-esophageal reflux disease without esophagitis (ICD-10) Heart failure ?I50.9 - Heart failure, unspecified (ICD-10) Hypertension ?I10 - Essential (primary) hypertension (ICD-10) Lack of coordination ?R27.9 - Unspecified lack of coordination (ICD-10) Tremor ?R25.1 - Tremor, unspecified (ICD-10) Dystonia ?G24.9 - Dystonia, unspecified (ICD-10) COPD (chronic obstructive pulmonary disease) ?J44.9 - Chronic obstructive pulmonary disease, unspecified (ICD-10) Diabetes mellitus ?E11.9 - Type 2 diabetes mellitus without complications (ICD-10) Social History Highest level of school completed/degree received: high school graduate Little interest or pleasure in doing things: not at all Feeling down, depressed, or hopeless: not at all Meds Home Medications and Allergies Home Medications ?Medication ?Instructions ?Recorded ?Confirmed ?Type atorvastatin 10 mg tablet 10 mg PO DAILY 09/15/23 07/06/24 History benztropine 0.5 mg tablet 0.5 mg PO BID 09/15/23 07/06/24 History cholecalciferol (vitamin D3) 125 125 mcg PO DAILY 09/15/23 07/06/24 History mcg (5,000 unit) tablet dapagliflozin propanediol 10 mg 10 mg PO DAILY 09/15/23 07/06/24 History tablet (Farxiga) finerenone 10 mg tablet (Kerendia) 10 mg PO DAILY 09/15/23 07/06/24 History finerenone 10 mg tablet (Kerendia) 10 mg PO DAILY 09/15/23 07/06/24 History levothyroxine 100 mcg tablet 100 mcg PO DAILY 09/15/23 07/06/24 History losartan 50 mg tablet 50 mg PO BID 09/15/23 07/06/24 History venlafaxine 37.5 mg 37.5 mg PO DAILY 09/15/23 07/06/24 History capsule,extended release 24 hr amantadine HCl 100 mg capsule 100 mg PO DAILY 07/06/24 07/06/24 History aripiprazole 2 mg tablet 2 mg PO DAILY 07/06/24 07/06/24 History cetirizine 10 mg tablet 10 mg PO DAILY 07/06/24 07/06/24 History loperamide 1 mg/7.5 mL oral liquid 1 mg PO Q8H 07/06/24 07/06/24 History (Anti-Diarrheal (loperamide)) Allergies Allergy/AdvReac Type Severity Reaction Status Date / Time No Known Drug Allergies Allergy Verified 12/27/23 12:57 Exam Constitutional Vital Signs, click to edit/add: Last Vital Signs Temp 97.9 F 07/06/24 09:52 Pulse 76 07/06/24 12:40 Resp 16 07/06/24 12:20 BP 110/72 07/06/24 12:00 Pulse Ox 100 07/06/24 11:31 O2 Del Method Room Air 07/06/24 08:11 Documenting provider has reviewed patient's vital signs: yes Common normals: no apparent distress Respiratory Common normals: normal respiratory effort, no use of accessory muscles and clear to auscultation bilaterally Cardio Common normals: regular rate, regular rhythm and no murmurs GI Common normals: Normal to inspection, nondistended, normoactive bowel sounds present, soft to palpation and non-tender Extremity Common normals: normal to inspection and no clubbing, cyanosis or edema Neuro Other: Difficult to understand speech but that is her baseline Results Labs Labs: Short CBC 07/06/24 Range/Units 08:30 WBC 8.9 (4.0-11.0) 10^3/uL Hgb 12.8 (12.0-16.0) g/dL Hct 39.3 (36.0-48.0) % Plt Count 198 (150-450) 10^3/uL BMP 07/06/24 07/06/24 07/06/24 08:30 10:36 12:18 Sodium 121 L* 124 L* 136 Potassium 6.6 H* 7.0 H* 4.8 Chloride 87 L 91 L 101 Carbon Dioxide 25.0 26.8 27.2 BUN 38.0 H 37.0 H 35.0 H Creatinine 2.28 H 2.19 H 2.12 H Glucose 1185 H* 1110 H* 666 H* Calcium 9.4 9.2 9.0 Urine 07/06/24 Range/Units 09:53 Urine Color Lt. yellow (YELLOW) Urine Clarity Clear (CLEAR) Urine pH 6.0 (5.0-9.0) Ur Specific [place] <=1.005 A (1.005-1.025) Urine Protein Negative (NEG/TRACE) mg/dL Urine Glucose (UA) >=1000 A (NEGATIVE) mg/dL ABG ABG results: 07/06/24 09:42 VBG pH 7.241 L VBG pCO2 61.2 H Assessment and Plan Assessment and Plan (1) Hyperglycemia: (2) Enteritis: (3) Hypothyroidism: (4) Schizoaffective disorder, bipolar type: (5) Muscle weakness: (6) GERD (gastroesophageal reflux disease): (7) Hypertension: (8) COPD (chronic obstructive pulmonary disease): (9) Diabetes mellitus: Plan Admission findings: Vital signs stable significant hyperglycemia with sugar over thousand, severe hyponatremia and hyperkalemia, acute kidney injury stage II secondary to 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 with sugar over thousand, fluid boluses x 2 given in ER sugar improving with that so far, hyperkalemia treated with insulin IV x 2 in ER with improvement, with improving urine output will maintain subcu insulin and fluid management to resolve Hyponatremia secondary to above-slowly improving Hyperkalemia secondary to above-slowly improving, start Lokelma unless potassium drops below 5 Acute kidney injury stage II-baseline creatinine of 1.08, admission creatinine of 2.28 which is 211% above baseline with decreased urine output resulting in stage II acute kidney injury Schizoaffective disorder-continue with current medications Hypertension continue with current medications Hypothyroidism continue with current medications Chronic kidney disease, holding off on Kerendia as possible cause for hyperkalemia Movement disorder possibly related to her treatment for schizoaffective disorder continue current medications Admission status: With sugar over thousand, need to decrease sugar but not quickly to prevent cerebral edema, medically necessary treatment will span 2 midnights. Inpatient status
--- OUTSIDE RECORDS SUMMARY | 2024-07-06 13:36 | XMS_ITS | CCD ---
Author Organization [facility] ion Partnership [facility] Care Team Providers Care Cyber Security Name Role Phone Cayla Gamez Unavailable [facility], Services Primary Care Unavaila Martin Gu Attending Unavailable Elizabet Wilson Admitting Unavailable [facility], Services Primary Care Unavaila Isael Villatoro Attending Unavailable Isael Castro Admitting Unavailable Austin Head Consulting Unavailable [facility] Primary Care Unavaila Evert Hamlin Attending Unavailable Evert Grant Admitting Unavailable [facility] Primary Care Unavaila Fuad Jennings Attending Unavailable Fuad Pillai Admitting Unavailable Gerald Fuentes Primary Care Unavailable Amando Soto Attending Unavailable Amando Soto Admitting Unavailable DELMA NUNN Primary Care Physician DELMA NUNN Admitting Unavailable DELMA NUNN Attending [...] Unavailable Madhuri Reza DO Primary Care Provider [phone] Medications Current Medications Medication Drug Class(es) Dates Sig (Normalized) Sig (Original) [id number] 200 actuat albuterol 0.09 mg/actuat metered dose [...] 09/16/23 at 0900 take 1 capsule by [facility] in the morning cholecalciferol, vitamin D3, 2,000 units capsule Take 1 capsule (2,000 Units total) by mouth in the morning. Active dapagliflozin 10 mg oral tablet (3 sources) Sodium-Glucose Cotransporter 2 Inhibitor Start: 09-15-2023 End: 09-17-2023 take 10 mg by mouth once daily 10 mg, oral, Daily, First dose on 09/15/23 at 2014 docusate sodium 50 mg / sennosides, fci 8.6 mg oral tablet (1 source) Start: [...] Test Name Value Interpretation Reference Range Facility [facility] 05-07-2024 Albumin [Mass/Vol] 4.4 g/dL Normal 3.3-5.0 [facility] Comment on above: Performed By: #### 2 [id number] #### [facility] [address] [place] [address] Albumin/Globulin (S) [Mass conc ratio] 1.2 Normal 1.1-2.2 [facility] Comment on above: Performed By: #### 2 830623 #### [facility] [address] [place] [address] ALP [Catalytic activity/Vol] 94 Int._Unit/L Normal 21-98 [facility] Comment on above: Performed By: #### 2 690107 #### [facility] [address] [place] [address] ALT No additional P-5'-P [Catalytic activity/Vol] 15 Int._Unit/L Normal 6-46 [facility] Comment on above: Performed By: #### 2 902663 #### [facility] [address] [place] [address] Anion gap [Moles/Vol] 10 mmol/L Normal 6-16 [facility] Comment on above: Performed By: #### 2 330775 #### [facility] [address] [place] [address] AST [Catalytic activity/Vol] 15 Int._Unit/L Normal 5-43 [facility] Comment on above: Performed By: #### 2 992979 #### [facility] [address] [place] [address] Bilirubin [Mass/Vol] 0.5 mg/dL Normal 0.0-1.1 [facility] Comment on above: Performed By: #### 2 254285 #### [facility] [address] [place] [address] Calcium [Mass/Vol] 9.5 mg/dL Normal 8.9-11.1 [facility] Comment on above: Performed By: #### 2 243247 #### [facility] [address] [place] [address] Chloride [Moles/Vol] 104 mmol/L Normal 101-111 [facility] Comment on above: Performed By: #### 2 995516 #### [facility] [address] [place] [address] CO2 [Moles/Vol] 29 mmol/L Normal 21-31 [facility] Comment on above: Performed By: #### 2 872250 #### [facility] [address] [place] [address] Creatinine [Mass/Vol] 1.5 mg/dL High 0.5-1.3 [facility] Comment on above: Performed By: #### 2 682775 #### [facility] [address] [place] [address] Globulin (S) [Mass/Vol] 3.6 g/dL Normal 1.4-4.0 [facility] Comment on above: Performed By: #### 2 078361 #### [facility] [address] [place] [address] Glucose [Mass/Vol] 102 mg/dL Normal 55-199 [facility] Comment on above: Performed By: #### 2 249572 #### [facility] [address] [place] [address] Potassium [Moles/Vol] 4.2 mmol/L Normal 3.5-5.3 [facility] Comment on above: Performed By: #### 2 412235 #### [facility] [address] [place] [address] Protein [Mass/Vol] 8.0 g/dL High 6.0-7.8 [facility] Comment on above: Performed By: #### 2 212039 #### [facility] [address] [place] [address] Sodium [Moles/Vol] 139 mmol/L Normal 135-145 [facility] Comment on above: Performed By: #### 2 448863 #### [facility] [address] [place] [address] Urea nitrogen [Mass/Vol] 29 mg/dL High 5-21 [facility] Comment on above: Performed By: #### 2 037394 #### [facility] [address] [place] [address] Urea nitrogen/Creatinine [Mass ratio] 19 No Units Normal 10-20 [facility] Comment on above: Performed By: #### 2 185264 #### [facility] [address] [place] [id number] 05-07-2024 HbA1c (Bld) [Mass fraction] 7.3 % High <=5.9 [facility] Comment on above: Performed By: #### 7 [id number] #### [facility] [address] [place] [address] T4 & TSHon 05-07-2024 T4 [Mass/Vol] 8.7 microgram/dL Normal 4.6-9.1 [facility] Comment on above: Performed By: #### 1 [id number] #### [facility] [address] [place] [address] TSH Qn 9.74 m[IU]/L High 0.34-5.60 [facility] Comment on above: Performed By: #### 1 0132462 #### [facility] [address] [place] [address] eGFRon 05-07-2024 eGFR 37 mL/min/1.73 m2 Low >=59 [facility] Comment on above: Performed By: #### 1 [id number] #### [facility] [address] [place], [place] [address] Body Fluid cell count with d ifferentialon 09-17-2023 Appearance (Body fld) CLEAR [facility] Color (Body fld) COLORLESS [facility] comment Ton (Report) Interpretati on-------- [facility] Comment on above: Reference values for this fluid type are undefined, as fluid accumulation is considered abnormal. ASSORTED LINING CELLS PRESENT Macrophages (Body fld) [#/Vol] 2 % [facility] Neutrophils/100 WBC (Body fld) 98 % [facility] Nucleated RBC (Body fld) [#/Vol] 41 /uL [facility] RBC (Body fld) [#/Vol] 0.001 10*3/uL [facility] Specimen type Nom (Spec) BRONCHOALVEOLAR LAVAGE [facility] Comment on above: LUNG RT MIDDLE LOBE [facility] FL SWALLOW MOTILITY FUNCTION on 09-17-2023 FL [...] Brian Baker MD on 09/17/2023 9:[address] [facility] RF videography Hypopharynx a nd Esophagus Viewson [...] Brian Baker MD on 09/17/2023 9:06 AM [facility] Rad[facility] Study observation (narrative) [facility] StatSheet RF videography Hypopharynx a nd Esophagus ViewsOrdered By: Brian Baker on 09-17-2023 [facility] Work Phone: AFB CULTURE(CONCENTRATED)on 09-16-2023 Mycobacterium sp identified Org specific cx Nom (Unsp spec) AFB SMEAR NO ACID FAST BACILLI (CONCENTRATED SMEAR) CULTURE RESULTS NO ACID FAST BACILLI ISOLATED IN 8 WEEKS Normal [facility] Comment on above: Performed By: #### 3 3-, 12950-1, CBCA, 56842-8, CMP, THYR, 28345-4, PINR #### [facility] ([id number]) [address], [address] [place] [address] AND DIFFon 2023 BODY FLUID COMMENT Interpreta ti on-------- Normal [facility] Comment on above: Result Comment: Refe rence values for this fluid type are undefined, as fluid accumulation is considered abnormal. ASSORTED LINING CELLS PRESENT Performed By: #### 3 3-, 85911-9, CBCA, 42501-5, CMP, THYR, 78315-0, PINR #### [facility] ([id number]) [address] [place] [address] FLUID CLARITY CLEAR Normal [facility] Comment on above: Performed By: #### 3 2132-1, 21217-4, CBCA, 02370-4, CMP, THYR, 23176-9, PINR #### [facility] ([id number]) [address], [address] [place] [address] FLUID COLOR COLORLESS Normal [facility] Comment on above: Performed By: #### 3 2132-, 62390-3, CBCA, 32989-1, CMP, THYR, 47293-9, PINR #### [facility] ([id number]) [address], [address] [place] [address] FLUID NEUTROPHILS 98 % Normal [facility] Comment on above: Performed By: #### 3 2132-, 82650-9, CBCA, 48630-5, CMP, THYR, 47443-9, PINR #### [facility] ([id number]) [address], [address] [place] [address] 1 /uL Normal [facility] Comment on above: Performed By: #### 3 2132-, 36543-4, CBCA, 37722-8, CMP, THYR, 66418-3, PINR #### [facility] ([id number]) [address] [place] [address] FLUID SPECIMEN TYPE BRONCHOALVEOLAR LAVAGE Normal [facility] Comment on above: Result Comment: LUNG RT MIDDLE LOBE Performed By: #### 3 2132-, 89252-9, CBCA, 08336-9, CMP, THYR, 25392-7, PINR #### [facility] ([id number]) [address], [address] [place] [address] MACROPHAGES 2 % Normal [facility] Comment on above: Performed By: #### 3 2132-1, 23349-2, CBCA, 81810-5, CMP, THYR, 30615-4, PINR #### [facility] ([id number]) [address], [address] [place] [address] 41 /uL Normal [facility] Comment on above: Performed By: #### 3 2132-, 28857-0, CBCA, 48482-9, CMP, THYR, 92592-8, PINR #### [facility] ([id number]) [address], [address] [place] [address] CBC AND AUTO DIFFon 09-16-19 24 ABSOLUTE BASOPHIL 0.0 X10E9/L Normal 0.0-0.2 [facility] Comment on above: Performed By: #### C MP, CBCA #### [facility] ([id number]) [address], [address] [place] [address] ABSOLUTE NEUTROPHIL 6.3 X10E9/L Normal 1.5-6.[address] [facility] Comment on above: Performed By: #### C MP, CBCA #### [facility] ([id number]) [address], [address] [place] [address] Basophils/100 WBC (Bld) 0.3 % Normal [facility] Comment on above: Performed By: #### C MP, CBCA #### [facility] ([id number]) [address], [address] [place] [address] Eosinophils (Bld) [#/Vol] 0.5 10*3/uL High 0.0-0.4 [facility] Comment on above: Performed By: #### C MP, CBCA #### [facility] ([id number]) [address], [address] [place] [address] Eosinophils/100 WBC (Bld) 5.3 % Normal [facility] Comment on above: Performed By: #### C MP, CBCA #### [facility] ([id number]) [address] [place] [address] Erythrocyte distribution width (RBC) [Ratio] 15.1 % High 11.5-15.0 [facility] Comment on above: Performed By: #### C MP, CBCA #### [facility] ([id number]) [address] [address] [address] [place] [address] Hematocrit (Bld) [Volume fraction] 35.8 % Normal 35-47 [facility] Comment on above: Performed By: #### C MP, CBCA #### [facility] ([id number]) [address] [address] Hemoglobin (Bld) [Mass/Vol] 12.0 g/dL Normal 11.7-15.5 [facility] Comment on above: Performed By: #### C MP, CBCA #### [facility] ([id number]) [address] [address] [place] [address] Lymphocytes (Bld) [#/Vol] 2.1 10*3/uL Normal 1.0-3.5 [facility] Comment on above: Performed By: #### C MP, CBCA #### [facility] ([id number]) [address] [address] Lymphocytes/100 WBC (Bld) 21.9 % Normal [facility] Comment on above: Performed By: #### C MP, CBCA #### [facility] ([id number]) [address] [address] [place] [address] MCH (RBC) [Entitic mass] 29.5 pg Normal 27-34 [facility] Comment on above: Performed By: #### C MP, CBCA #### [facility] ([id number]) [address] [place] [address] MCHC (RBC) [Mass/Vol] 33.5 g/dL Normal 32-36 [facility] Comment on above: Performed By: #### C MP, CBCA #### [facility] ([id number]) [address], [address] [place] [address] MCV (RBC) [Entitic vol] 88 fL Normal 80-100 [facility] Comment on above: Performed By: #### C MP, CBCA #### [facility] ([id number]) [address], [address] [place] [address] Monocytes (Bld) [#/Vol] 0.8 10*3/uL Normal 0-0.9 [facility] Comment on above: Performed By: #### C MP, CBCA #### [facility] ([id number]) [address], [address] [place] [address] Monocytes/100 WBC (Bld) 7.7 % Normal [facility] Comment on above: Performed By: #### C MP, CBCA #### [facility] ([id number]) [address], [address] [place] [address] Neutrophils/100 WBC (Bld) 64.8 % Normal [facility] Comment on above: Performed By: #### C MP, CBCA #### [facility] ([id number]) [address], [address] [place] [address] Platelet mean volume (Bld) [Entitic vol] 8.0 fL Normal 7-12 [facility] Comment on above: Performed By: #### C MP, CBCA #### [facility] ([id number]) [address], [address] [place] [address] Platelets (Bld) [#/Vol] 208 10*3/uL Normal 150-450 [facility] Comment on above: Performed By: #### C MP, CBCA #### [facility] ([id number]) [address], [address] [place] [address] RBC COUNT 4.07 X10E12/L Normal 3.80-5.20 [facility] Comment on above: Performed By: #### C MP, CBCA #### [facility] ([id number]) [address], [address] [place] [address] WBC (Bld) [#/Vol] 9.8 10*3/uL Normal 4.0-11.0 [facility] Comment on above: Performed By: #### C MP, CBCA #### [facility] ([id number]) [address], [address] [place] [address] CBC auto differentialon 06-0 Basophils (Bld) [#/Vol] 0.0 10*3/uL [facility] Basophils/100 WBC (Bld) 0.3 % [facility] Eosinophils (Bld) [#/Vol] 0.5 10*3/uL High [facility] Eosinophils/100 WBC (Bld) 5.3 % [facility] Erythrocyte distribution width (RBC) [Ratio] 15.1 % High 11.5 - 15.0 % [facility] Hematocrit (Bld) [Volume fraction] 35.8 % 35 - 47 % [facility] Hemoglobin (Bld) [Mass/Vol] 12.0 g/dL 11.7 - 15.5 g/dL [facility] Interpretation and review of laboratory results Abnormal [facility] Lymphocytes (Bld) [#/Vol] 2.1 10*3/uL [facility] Lymphocytes/100 WBC (Bld) 21.9 % [facility] MCH (RBC) [Entitic mass] 29.5 pg 27 - 34 pg [facility] MCHC (RBC) [Mass/Vol] 33.5 g/dL 32 - 36 g/dL [facility] MCV (RBC) [Entitic vol] 88 fL 80 - 100 fL [facility] Monocytes (Bld) [#/Vol] 0.8 10*3/uL [facility] Monocytes/100 WBC (Bld) 7.7 % [facility] Neutrophils (Bld) [#/Vol] 6.3 10*3/uL [facility] Neutrophils/100 WBC (Bld) 64.8 % [facility] Platelet mean volume (Bld) [Entitic vol] 8.0 fL 7 - 12 fL [facility] Platelets (Bld) [#/Vol] 208 10*3/uL [facility] RBC (Bld) [#/Vol] 4.07 10*6/uL [facility] WBC corrected for nucl RBC Auto (Bld) [#/Vol] 9.8 [facility] COMPREHENSIVE METABOLIC PANE Eric 09-16-2023 Albumin [Mass/Vol] 3.7 g/dL Normal 3.2-5.3 [facility] Comment on above: Performed By: #### 3 2132-1, 85045-2, CBCA, 33671-3, CMP, THYR, 40230-9, PINR #### [facility] ([id number]) [address] [place] [address] ALP [Catalytic activity/Vol] 89 U/L Normal 39-130 [facility] Comment on above: Performed By: #### 3 2132-, 90538-1, CBCA, 00015-9, CMP, THYR, 92261-6, PINR #### [facility] ([id number]) [address], [address] [place] [address] ALT [Catalytic activity/Vol] 16 U/L Normal 0-31 [facility] Comment on above: Performed By: #### 3 2132-1, 53938-4, CBCA, 75126-0, CMP, THYR, 70189-9, PINR #### [facility] ([id number]) [address], [address] [place] [address] Anion gap [Moles/Vol] 8 mmol/L Normal 5-15 [facility] Comment on above: Performed By: #### 3 2132-04, 07874-0, CBCA, 31468-6, CMP, THYR, 15390-8, PINR #### [facility] ([id number]) [address], [address] [place] [address] AST [Catalytic activity/Vol] 18 U/L Normal 0-41 [facility] Comment on above: Performed By: #### 3 2132-, 04460-0, CBCA, 24301-0, CMP, THYR, 33860-4, PINR #### [facility] ([id number]) [address] [place] [address] Bilirubin [Mass/Vol] 0.8 mg/dL Normal 0.3-1.[address] [facility] Comment on above: Performed By: #### 3 2132-04, 21860-6, CBCA, 12321-2, CMP, THYR, 92198-9, PINR #### [facility] ([id number]) [address], [address] [place] [address] Calcium [Mass/Vol] 8.7 mg/dL Normal 8.5-10.5 [facility] Comment on above: Performed By: #### 3 2132-04, , CBCA, 87095-5, CMP, THYR, 93738-7, PINR #### [facility] ([id number]) [address], [address] [place] [address] Chloride [Moles/Vol] 106 mmol/L Normal 98-[address] [facility] Comment on above: Performed By: #### 3 2132-04, 10390-7, CBCA, 72300-3, CMP, THYR, 90137-8, PINR #### [facility] ([id number]) [address], [address] [place] [address] CO2 [Moles/Vol] 28 mmol/L Normal 22-32 [facility] Comment on above: Performed By: #### 3 2132-, , CBCA, 73953-1, CMP, THYR, 81790-7, PINR #### [facility] ([id number]) [address], [address] [place] [address] Creatinine [Mass/Vol] 0.99 mg/dL Normal 0.40-1.00 [facility] Comment on above: Result Comment: METH OD TRACEABLE TO IDMS STANDARD Performed By: #### 3 2132-, , CBCA, 81981-6, CMP, THYR, 62046-0, PINR #### [facility] ([id number]) [address] [facility] [address] [place] [address] GFR/1.73 sq M.predicted among non-blacks MDRD (S/P/Bld) [Vol rate/Area] 61 mL/min/{1.73_m2} Normal >59 [facility] Comment on above: Result Comment: Reported eGFR is based on the CKD-EPI 2020 equation that does not use a race coefficient. Performed By: #### 3 2132-04, , CBCA, 42180-6, CMP, THYR, 47740-7, PINR #### [facility] ([id number]) [address], [address] [place] [address] Glucose [Mass/Vol] 98 mg/dL Normal 65-99 [facility] Comment on above: Performed By: #### 3 2132-04, 34427-2, CBCA, 73172-5, CMP, THYR, 59430-1, PINR #### [facility] ([id number]) [address] [place] [address] Potassium [Moles/Vol] 4.0 mmol/L Normal 3.5-5.0 [facility] Comment on above: Performed By: #### 3 2132-04, 73558-5, CBCA, 37885-1, CMP, THYR, 37492-1, PINR #### [facility] ([id number]) [address] [place] [address] Protein [Mass/Vol] 6.7 g/dL Normal 6.0-8.0 [facility] Comment on above: Performed By: #### 3 2132-1, 40793-3, CBCA, 77727-0, CMP, THYR, 64108-1, PINR #### [facility] ([id number]) [address] [place] [address] Sodium [Moles/Vol] 142 mmol/L Normal 134-146 [facility] Comment on above: Performed By: #### 3 2132-1, 98543-9, CBCA, 21409-9, CMP, THYR, 17607-7, PINR #### [facility] ([id number]) [address] [place] [address] Urea nitrogen [Mass/Vol] 22 mg/dL Normal 5-27 [facility] Comment on above: Performed By: #### 3 2132-1, 00533-3, CBCA, 02799-4, CMP, THYR, 05059-6, PINR #### [facility] ([id number]) [address], [address] [place] [address] Comprehensive metabolic pane eric 09-16-2023 Albumin [Mass/Vol] 3.7 g/dL 3.2 - 5.3 g/dL Pr [facility] ALP [Catalytic activity/Vol] 89 U/L 39 - 130 U/L [facility] ALT No additional P-5'-P [Catalytic activity/Vol] 16 U/L 0 - 31 U/L [facility] Anion gap [Moles/Vol] 8 mmol/L 5 - 15 mmol/L [facility] AST [Catalytic activity/Vol] 18 U/L 0 - 41 U/L [facility] Bilirubin [Mass/Vol] 0.8 mg/dL 0.3 - 1 .2 mg/dL [facility] Calcium [Mass/Vol] 8.7 mg/dL 8.5 - 10. 5 mg/dL [facility] Chloride [Moles/Vol] 106 mmol/L 98 - 10 9 mmol/L [facility] CO2 [Moles/Vol] 28 mmol/L 22 - 32 mmol/L [facility] Creatinine [Mass/Vol] 0.99 mg/dL 0.40 - 1.00 mg/dL [facility] Comment on above: METHOD TRACEABLE TO [facility] STANDARD eGFR (CKD-EPI)non-race dependent 61 - PINF [facility] Comment on above: Reported eGFR is based on the CKD-EPI 2020 equation that does not use a race coefficient. Glucose [Mass/Vol] 98 mg/dL 65 - 99 mg/dL [facility] Potassium [Moles/Vol] 4.0 mmol/L 3.5 - 5.0 mmol/L [facility] Protein [Mass/Vol] 6.7 g/dL 6.0 - 8.0 g/dL [facility] Sodium [Moles/Vol] 142 mmol/L 134 - 146 mmol/L [facility] Urea nitrogen [Mass/Vol] 22 mg/dL 5 - 27 mg/dL [facility] Cytologyon 09-16-2023 Cytology Normal [facility] Comment on above: Result Comment: [facility] [address] [place] [address] Cytology Consultation Patient Name:JEANMARIE GARCIA:1950 (Age: 73)Gender:FTaken:09/16/2023eported:09/19/2023 13:24Physician(s):AMY MONTAGUE DO ([phone])Copy To:Keysha Reynoso M.D. Rec. #:[id number]: #[id number] Final Cytologic Diagnosis Lung, right middle lobe, bronchial alveolar lavage: No malignant cells identified. nxk/09/19/2023 Interpretation performed at [facility] [address], License number: [id number].Electronically Signed Out By Earnest Stanford MD Clinical History Foreign body. Gross Description Received was 15 mL of clear fluid unfixed labeled as Garcia, lung, right middle lobe, bronchial alveolar lavage . CytoLyt added in lab. Specimen placed in formalin at 10:00 and had a total fixation time of 15 hours. 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 [employer] Fee Code(s): 1; 70635, 94853 FUNGAL CULTUREon 09-16-2023 Fungus identified Cx Nom (Unsp spec) FUNGAL SMEAR NO FUNGAL ELEMENTS SEEN ON CONCENTRATED SMEAR CULTURE RESULTS NO FUNGUS ISOLATED AFTER 4 WEEKS Normal [facility] Comment on above: Performed By: #### 3 3-, 84113-3, CBCA, 25654-7, CMP, THYR, 40848-6, PINR #### [facility] ([id number]) [address], [address] [place] [address] LOWER RESPIRATORY CULTUREon 09-16-2023 Bacteria identified Respiratory culture Nom (Sput) GRAM STAIN 1 to 9 WHITE BLOOD CELLS/LPF 0 to 1 SQUAMOUS EPITHELIAL CELLS/LPF 0 CILIATED EPITHELIAL CELLS/LPF NO ORGANISMS SEEN CULTURE RESULTS NO GROWTH 2 DAYS Normal [facility] Comment on above: Performed By: #### 3 3-, 59949-8, CBCA, 83192-7, CMP, THYR, 92394-6, PINR #### [facility] ([id number]) [address], [address] [place] [address] RF Guidance for bronchoscopy of Cheston 09-16-2023 This order has been auto-finalized for image and report archival in PACs. *For full report details, please reach out to your physician. This image is visible to you in MyChart.* [facility] XR Chest Single viewon 09-15 Leilani Rizo DO - 09/16/2023 Procedure: Chest x-ray performed Number of views:AP portable upright History:Cough Comparison:None Findings: The heart and lungs show no acute findings, and the mediastinum and maribel are grossly negative . Impression: No acute change. Finalized by Leilani Rizo DO on 09/16/2023 8:39 AM [facility] Radiology Study observation (narrative) [facility] XR Chest Single viewOrdered By: Leilani Rizo on 09-16-2023 [facility] Work Phone: APTTon 09-15-2023 aPTT Coag (PPP) [Time] 29 s [facility] CBC AND AUTO DIFFon 09-15-19 24 ABSOLUTE BASOPHIL 0.1 X10E9/L Normal 0.0-0.2 [facility] Comment on above: Performed By: #### 3 2132-04, 87854-4, CBCA, 62979-1, CMP, THYR, 37533-6, PINR #### [facility] ([id number]) [address], [address] [place] [address] ABSOLUTE NEUTROPHIL 8.1 X10E9/L High 1.5-6.[address] [facility] Comment on above: Performed By: #### 3 2132-04, , CBCA, 73717-7, CMP, THYR, 16603-0, PINR #### [facility] ([id number]) [address], [address] [place] [address] Basophils/100 WBC (Bld) 0.5 % Normal [facility] Comment on above: Performed By: #### 3 2132-04, , CBCA, 91077-3, CMP, THYR, 81764-4, PINR #### [facility] ([id number]) [address], [address] [place] [address] Eosinophils (Bld) [#/Vol] 0.5 10*3/uL High 0.0-0.4 [facility] Comment on above: Performed By: #### 3 2132-04, , CBCA, 19285-7, CMP, THYR, 43365-1, PINR #### [facility] ([id number]) [address], [address] [place] [address] Eosinophils/100 WBC (Bld) 4.1 % Normal [facility] Comment on above: Performed By: #### 3 2132-, , CBCA, 46909-4, CMP, THYR, 20895-9, PINR #### [facility] ([id number]) [address], [facility] [address] [place] [address] Erythrocyte distribution width (RBC) [Ratio] 15.0 % Normal 11.5-15.0 [facility] Comment on above: Performed By: #### 3 2132-, , CBCA, 53271-9, CMP, THYR, 54665-1, PINR #### [facility] ([id number]) [address] [place] [address] Hematocrit (Bld) [Volume fraction] 38.0 % Normal 35-47 [facility] Comment on above: Performed By: #### 3 2132-04, , CBCA, 97604-7, CMP, THYR, 95696-6, PINR #### [facility] ([id number]) [address] [address] [facility] [address] [place] [address] Hemoglobin (Bld) [Mass/Vol] 12.3 g/dL Normal 11.7-15.5 [facility] Comment on above: Performed By: #### 3 2132-04, , CBCA, 32762-3, CMP, THYR, 79869-5, PINR #### [facility] ([id number]) [address], [address] [place] [address] Lymphocytes (Bld) [#/Vol] 2.5 10*3/uL Normal 1.0-3.5 [facility] Comment on above: Performed By: #### 3 2132-, 23340-3, CBCA, 22256-1, CMP, THYR, 28508-7, PINR #### [facility] ([id number]) [address], [address] [place] [address] Lymphocytes/100 WBC (Bld) 20.8 % Normal [facility] Comment on above: Performed By: #### 3 2132-, , CBCA, 67613-0, CMP, THYR, 39885-6, PINR #### [facility] ([id number]) [address], [address] [place] [address] MCH (RBC) [Entitic mass] 28.7 pg Normal 27-34 [facility] Comment on above: Performed By: #### 3 2132-04, , CBCA, 41011-5, CMP, THYR, 71075-5, PINR #### [facility] ([id number]) [address], [address] [place] [address] MCHC (RBC) [Mass/Vol] 32.5 g/dL Normal 32-36 [facility] Comment on above: Performed By: #### 3 2132-04, , CBCA, 73784-1, CMP, THYR, 71027-1, PINR #### [facility] ([id number]) [address], [address] [place] [address] MCV (RBC) [Entitic vol] 88 fL Normal 80-100 [facility] Comment on above: Performed By: #### 3 2132-, 02969-5, CBCA, 28638-8, CMP, THYR, 01950-0, PINR #### [facility] ([id number]) [address], [address] [place] [address] Monocytes (Bld) [#/Vol] 0.7 10*3/uL Normal 0-0.9 [facility] Comment on above: Performed By: #### 3 2132-, 31034-8, CBCA, 46673-4, CMP, THYR, 27064-9, PINR #### [facility] ([id number]) [address], [address] [place] [address] Monocytes/100 WBC (Bld) 6.2 % Normal [facility] Comment on above: Performed By: #### 3 2132-, 14324-7, CBCA, 14095-8, CMP, THYR, 82463-2, PINR #### [facility] ([id number]) [address], [address] [place] [address] Neutrophils/100 WBC (Bld) 68.4 % Normal [facility] Comment on above: Performed By: #### 3 2132-04, , CBCA, 02681-7, CMP, THYR, 81974-0, PINR #### [facility] ([id number]) [address], [address] [place] [address] Platelet mean volume (Bld) [Entitic vol] 8.2 fL Normal 7-12 [facility] Comment on above: Performed By: #### 3 2132-04, , CBCA, 50360-8, CMP, THYR, 37349-1, PINR #### [facility] ([id number]) [address], [address] [place] [address] Platelets (Bld) [#/Vol] 229 10*3/uL Normal 150-450 [facility] Comment on above: Performed By: #### 3 2132-, 35431-6, CBCA, 25743-7, CMP, THYR, 44032-8, PINR #### [facility] ([id number]) [address], [address] [place] [address] RBC COUNT 4.30 X10E12/L Normal 3.80-5.20 [facility] Comment on above: Performed By: #### 3 3-1, 96580-5, CBCA, 55555-4, CMP, THYR, 44400-8, PINR #### [facility] ([id number]) [address], [address] [place] [address] WBC (Bld) [#/Vol] 11.9 10*3/uL High 4.0-11.0 [facility] Comment on above: Performed By: #### 3 2132-1, 55450-0, CBCA, 98639-5, CMP, THYR, 05532-8, PINR #### [facility] ([id number]) [address], [address] [place] [address] CBC auto differentialon 06-0 Basophils (Bld) [#/Vol] 0.1 10*3/uL [facility] Basophils/100 WBC (Bld) 0.5 % [facility] Eosinophils (Bld) [#/Vol] 0.5 10*3/uL High [facility] Eosinophils/100 WBC (Bld) 4.1 % [facility] Erythrocyte distribution width (RBC) [Ratio] 15.0 % 11.5 - 15.0 % [facility] Hematocrit (Bld) [Volume fraction] 38.0 % 35 - 47 % [facility] Hemoglobin (Bld) [Mass/Vol] 12.3 g/dL 11.7 - 15.5 g/dL [facility] Interpretation and review of laboratory results Abnormal [facility] Lymphocytes (Bld) [#/Vol] 2.5 10*3/uL [facility] Lymphocytes/100 WBC (Bld) 20.8 % [facility] MCH (RBC) [Entitic mass] 28.7 pg 27 - 34 pg [facility] MCHC (RBC) [Mass/Vol] 32.5 g/dL 32 - 36 g/dL [facility] MCV (RBC) [Entitic vol] 88 fL 80 - 100 fL [facility] Monocytes (Bld) [#/Vol] 0.7 10*3/uL [facility] Monocytes/100 WBC (Bld) 6.2 % [facility] Neutrophils (Bld) [#/Vol] 8.1 10*3/uL High [facility] Neutrophils/100 WBC (Bld) 68.4 % [facility] Platelet mean volume (Bld) [Entitic vol] 8.2 fL 7 - 12 fL [facility] Platelets (Bld) [#/Vol] 229 10*3/uL [facility] RBC (Bld) [#/Vol] 4.30 10*6/uL [facility] WBC corrected for nucl RBC Auto (Bld) [#/Vol] 11.9 High [facility] COMPREHENSIVE METABOLIC PANE Eric 09-15-2023 Albumin [Mass/Vol] 4.0 g/dL Normal 3.2-5.3 [facility] Comment on above: Performed By: #### 3 2132-1, 12890-8, CBCA, 99583-3, CMP, THYR, 49209-6, PINR #### [facility] ([id number]) [address], [address] [place] [address] ALP [Catalytic activity/Vol] 97 U/L Normal 39-130 [facility] Comment on above: Performed By: #### 3 2132-1, 36467-9, CBCA, 15810-1, CMP, THYR, 76255-7, PINR #### [facility] ([id number]) [address], [address] [place] [address] ALT [Catalytic activity/Vol] 19 U/L Normal 0-31 [facility] Comment on above: Performed By: #### 3 2132-1, 56620-7, CBCA, 41560-2, CMP, THYR, 62263-2, PINR #### [facility] ([id number]) [address], [address] [place] [address] Anion gap [Moles/Vol] 8 mmol/L Normal 5-15 [facility] Comment on above: Performed By: #### 3 2132-1, 35513-1, CBCA, 84018-4, CMP, THYR, 94405-4, PINR #### [facility] ([id number]) [address], [address] [place] [address] AST [Catalytic activity/Vol] 16 U/L Normal 0-41 [facility] Comment on above: Performed By: #### 3 2132-, 90402-6, CBCA, 78710-9, CMP, THYR, 79408-8, PINR #### [facility] ([id number]) [address], [address] [place] [address] Bilirubin [Mass/Vol] 0.4 mg/dL Normal 0.3-1.[address] [facility] Comment on above: Performed By: #### 3 2132-, 71728-6, CBCA, 23395-6, CMP, THYR, 57539-9, PINR #### [facility] ([id number]) [address], [address] [place] [address] Calcium [Mass/Vol] 9.1 mg/dL Normal 8.5-10.5 [facility] Comment on above: Performed By: #### 3 2132-, 57664-9, CBCA, 94830-1, CMP, THYR, 47363-3, PINR #### [facility] ([id number]) [address], [address] [place] [address] Chloride [Moles/Vol] 105 mmol/L Normal 98-[address] [facility] Comment on above: Performed By: #### 3 2132-, 18523-4, CBCA, 86357-1, CMP, THYR, 52992-8, PINR #### [facility] ([id number]) [address], [address] [place] [address] CO2 [Moles/Vol] 29 mmol/L Normal 22-32 [facility] Comment on above: Performed By: #### 3 2132-, , CBCA, 09657-1, CMP, THYR, 82752-0, PINR #### [facility] ([id number]) [address], [address] [place] [address] Creatinine [Mass/Vol] 1.04 mg/dL High 0.40-1.00 [facility] Comment on above: Result Comment: METH OD TRACEABLE TO IDMS STANDARD Performed By: #### 3 2132-04, , CBCA, 88815-2, CMP, THYR, 13739-5, PINR #### [facility] ([id number]) [address], [address] [place] [address] GFR/1.73 sq M.predicted among non-blacks MDRD (S/P/Bld) [Vol rate/Area] 57 mL/min/{1.73_m2} Low >59 [facility] Comment on above: Result Comment: Reported eGFR is based on the CKD-EPI 2020 equation that does not use a race coefficient. Performed By: #### 3 2132-04, , CBCA, 66074-8, CMP, THYR, 16025-1, PINR #### [facility] ([id number]) [address], [address] [place] [address] Glucose [Mass/Vol] 101 mg/dL High 65-99 [facility] Comment on above: Performed By: #### 3 2132-04, , CBCA, 63719-5, CMP, THYR, 11701-5, PINR #### [facility] ([id number]) [address], [address] [place] [address] Potassium [Moles/Vol] 4.1 mmol/L Normal 3.5-5.0 [facility] Comment on above: Performed By: #### 3 2132-04, , CBCA, 52898-9, CMP, THYR, 78774-5, PINR #### [facility] ([id number]) [address], [address] [place] [address] Protein [Mass/Vol] 7.5 g/dL Normal 6.0-8.0 [facility] Comment on above: Performed By: #### 3 3-1, 03247-3, CBCA, 27690-2, CMP, THYR, 57830-2, PINR #### [facility] ([id number]) [address], [address] [place] [address] Sodium [Moles/Vol] 142 mmol/L Normal 134-146 [facility] Comment on above: Performed By: #### 3 3-1, 04596-1, CBCA, 14799-1, CMP, THYR, 97332-7, PINR #### [facility] ([id number]) [address], [address] [place] [address] Urea nitrogen [Mass/Vol] 25 mg/dL Normal 5-27 [facility] Comment on above: Performed By: #### 3 2132-1, 00916-7, CBCA, 32752-3, CMP, THYR, 50495-1, PINR #### [facility] ([id number]) [address], [address] [place] [address] CT CHEST WO CONTon CT CHEST WO CONT CT CHEST WO CONT *ADDENDUM*Upon targeted retrospective review, small filling defect within bronchus intermedius, measures approximately 6 mm; can be seen with aspiration, inspissated mucous plugging, etc. Finalized by Rui Boswell MD on 09/15/2023 6:40 PM Normal [facility] CT Chest WO contraston 09-14 Addendum by Rui Boswell MD on 09/15/2023 6:40 PM EDT *ADDENDUM*Upon targeted retrospective review, small filling defect within bronchus intermedius, measures approximately 6 mm; can be seen with aspiration, inspissated mucous plugging, etc. Finalized by Rui Boswell MD on 09/15/2023 6:40 PM [facility] CLINICAL HISTORY: Aspiration pneumonia. COMPARISON: None. TECHNIQUE: [...] Rui Boswell MD on 09/15/2023 5:47 PM [facility] Rui Boswell MD - 09/15/2023 CLINICAL HISTORY: [...] Rui Boswell MD on 09/15/2023 5:47 PM [facility] Radiology Study observation (narrative) [facility] CT Chest WO contrastOrdered By: Rui Boswell on 09-15-2023 [facility] Work Phone: Comprehensive metabolic pane eric 09-15-2023 Albumin [Mass/Vol] 4.0 g/dL 3.2 - 5.3 g/dL [facility] ALP [Catalytic activity/Vol] 97 U/L 39 - 130 U/L [facility] ALT No additional P-5'-P [Catalytic activity/Vol] 19 U/L 0 - 31 U/L [facility] Anion gap [Moles/Vol] 8 mmol/L 5 - 15 mmol/L [facility] AST [Catalytic activity/Vol] 16 U/L 0 - 41 U/L [facility] Bilirubin [Mass/Vol] 0.4 mg/dL 0.3 - 1 .2 mg/dL [facility] Calcium [Mass/Vol] 9.1 mg/dL 8.5 - 10. 5 mg/dL [facility] Chloride [Moles/Vol] 105 mmol/L 98 - 10 9 mmol/L [facility] CO2 [Moles/Vol] 29 mmol/L 22 - 32 mmol/L [facility] Creatinine [Mass/Vol] 1.04 mg/dL High 0.40 - 1.00 mg/dL [facility] Comment on above: METHOD TRACEABLE TO IDAL STANDARD eGFR (CKD-EPI)non-race dependent 57 Low - PINF [facility] Comment on above: Reported eGFR is based on the CKD-EPI 2020 equation that does not use a race coefficient. Glucose [Mass/Vol] 101 mg/dL High 65 - 99 mg/dL [facility] Interpretation and review of laboratory results Abnormal [facility] Potassium [Moles/Vol] 4.1 mmol/L 3.5 - 5.0 mmol/L [facility] Protein [Mass/Vol] 7.5 g/dL 6.0 - 8.0 g/dL [facility] Sodium [Moles/Vol] 142 mmol/L 134 - 146 mmol/L [facility] Urea nitrogen [Mass/Vol] 25 mg/dL 5 - 27 mg/dL [facility] Lactate (P andrew) [Moles/Vol]o n 09-15-2023 [facility] LACTATE W/REFLEX 0.8 mmol/L Normal 0.4-2.0 [facility] Comment on above: Result Comment: Result did not trigger repeat Lactate, re-order if needed. Performed By: #### 3 3-1, 33510-4, CBCA, 74578-0, CMP, THYR, 94322-3, PINR #### [facility] ([id number]) [address], [address] [place] [address] Lactate w/ Reflexon 09-15-19 24 Lactate (P andrew) [Moles/Vol] 0.8 mmol/L 0.4 - 2.0 mmol/L [facility] Comment on above: Result did not trigger repeat Lactate, re-order if needed. MAGNESIUMon 09-15-2023 Magnesium [Mass/Vol] 2.1 mg/dL Normal 1.8-2.[address] [facility] Comment on above: Performed By: #### 3 3-1, 69397-7, CBCA, 00095-6, CMP, THYR, 76118-9, PINR #### [facility] ([id number]) [address], [address] [place] [address] Magnesiumon 09-15-2023 Magnesium [Mass/Vol] 2.1 mg/dL 1.8 - 2 .6 mg/dL [facility] Natriuretic peptide B [Mass/ Vol]on 09-15-2023 Natriuretic peptide B (Bld) [Mass/Vol] 20 pg/mL NINF - 100.0 pg/mL [facility] Natriuretic peptide B (Bld) [Mass/Vol] 20 pg/mL Normal <100.0 [facility] Comment on above: Performed By: #### 3 2132-1, , CBCA, 46986-6, CMP, THYR, 43764-0, PINR #### [facility] ([id number]) [address], [address] [place] [address] No Panel Informationon 09-14 [facility] PROTIME AND INRon 09-15-2023 INR Coag (PPP) [Relative time] 1.0 {INR} Normal 0.8-1.1 [facility] Comment on above: Performed By: #### 3 2132-1, 79095-1, CBCA, 65166-6, CMP, THYR, 02280-0, PINR #### [facility] ([id number]) [address], [address] [place] [address] PT Coag (PPP) [Time] 11.5 s Normal 9.8-13.[address] [facility] Comment on above: Performed By: #### 3 2132-1, 36665-5, CBCA, 27172-6, CMP, THYR, 49726-9, PINR #### [facility] ([id number]) [address], [address] [place] [address] Protime & INRon 09-15-2023 INR Coag (PPP) [Relative time] 1.0 {INR} [facility] PT Coag (PPP) [Time] 11.5 s [facility] THYROID PROFILEon 09-15-2023 Free T4 [Mass/Vol] 0.84 ng/dL Normal 0.61-1.60 [facility] Comment on above: Performed By: #### 3 2132-04, , CBCA, 79631-8, CMP, THYR, 21518-6, PINR #### [facility] ([id number]) [address], [address] [place] [address] TSH 1.26 uIU/mL Normal 0.49-4.67 [facility] Comment on above: Performed By: #### 3 2132-04, , CBCA, 60548-2, CMP, THYR, 44026-7, PINR #### [facility] ([id number]) [address], [address] [place] [address] Thyroid profile includes TSH FT4on 09-15-2023 Free T4 [Mass/Vol] 0.84 ng/dL 0.61 - 1. 60 ng/dL [facility] TSH Qn 1.26 m[IU]/L [facility] aPTT Coag (PPP) [Time]on aPTT Coag (Bld) [Time] 29 s Normal 26-37 [facility] Comment on above: Performed By: #### 3 2132-04, , CBCA, 54668-1, CMP, THYR, 41198-0, PINR #### [facility] ([id number]) [address] [facility] [address], [address] [place] [address] CMPon 08-31-2023 Albumin [Mass/Vol] 4.1 g/dL Normal 3.3-5.0 [facility] Comment on above: Performed By: #### 2 [id number] #### [facility] [address] [place] [address] Albumin/Globulin (S) [Mass conc ratio] 1.3 Normal 1.1-2.2 [facility] Comment on above: Performed By: #### 2 073677 #### [facility] [address] [place] [address] ALP [Catalytic activity/Vol] 98 Int._Unit/L Normal 21-98 [facility] Comment on above: Performed By: #### 2 701886 #### [facility] [address] [place] [address] ALT No additional P-5'-P [Catalytic activity/Vol] 14 Int._Unit/L Normal 6-46 [facility] Comment on above: Performed By: #### 2 055704 #### [facility] [address] [place] [address] Anion gap [Moles/Vol] 9 mmol/L Normal 6-16 [facility] Comment on above: Performed By: #### 2 841255 #### [facility] [address] [place] [address] AST [Catalytic activity/Vol] 15 Int._Unit/L Normal 5-43 [facility] Comment on above: Performed By: #### 2 826490 #### [facility] [address] [place] [address] Bilirubin [Mass/Vol] 0.5 mg/dL Normal 0.0-1.1 [facility] Comment on above: Performed By: #### 2 336450 #### [facility] [address] [place] [address] Calcium [Mass/Vol] 8.7 mg/dL Low 8.9-11.1 [facility] Comment on above: Performed By: #### 2 197992 #### [facility] [address] [place] [address] Chloride [Moles/Vol] 109 mmol/L Normal 101-111 [facility] Comment on above: Performed By: #### 2 344634 #### [facility] [address] [place] [address] CO2 [Moles/Vol] 28 mmol/L Normal 21-31 [facility] Comment on above: Performed By: #### 2 313282 #### [facility] [address] [place] [address] Creatinine [Mass/Vol] 1.1 mg/dL Normal 0.5-1.3 [facility] Comment on above: Performed By: #### 2 284799 #### [facility] [address] [place] [address] Globulin (S) [Mass/Vol] 3.1 g/dL Normal 1.4-4.0 [facility] Comment on above: Performed By: #### 2 248310 #### [facility] [address] [place] [address] Glucose [Mass/Vol] 64 mg/dL Normal 55-199 [facility] Comment on above: Performed By: #### 2 681158 #### [facility] [address] [place] [address] Potassium [Moles/Vol] 4.1 mmol/L Normal 3.5-5.3 [facility] Comment on above: Performed By: #### 2 959786 #### [facility] [address] [place] [address] Protein [Mass/Vol] 7.2 g/dL Normal 6.0-7.8 [facility] Comment on above: Performed By: #### 2 [id number] #### [facility] [address] [place] [address] Sodium [Moles/Vol] 142 mmol/L Normal 135-145 [facility] Comment on above: Performed By: #### [id number] #### [facility] [address] [place] [address] Urea nitrogen [Mass/Vol] 20 mg/dL Normal 5-21 [facility] Comment on above: Performed By: #### [id number] #### [facility] [address] [place] [address] Urea nitrogen/Creatinine [Mass ratio] 18 No Units Normal 10-20 [facility] Comment on above: Performed By: #### [id number] #### [facility] [address] [place] [address] Physician Orderon 08-31-2023 Physician Order [id number] Normal [facility] T4 & TSHon 08-31-2023 TSH Qn 1.97 m[IU]/L Normal 0.34-5.60 [facility] Comment on above: Performed By: #### 1 [id number] #### [facility] [address], [place] [address] T4 [Mass/Vol] 11.4 microgram/dL High 4.6-9.1 [facility] Comment on above: Performed By: #### 1 [id number] #### [facility] [address] [place] [address] Vit B12on 08-31-2023 Cobalamin (Vitamin B12) [Mass/Vol] 231 pg/mL Normal 50-1500 [facility] Comment on above: Performed By: #### 2 [id number] #### [facility] [address] [place] [address] Vitamin D 25 Hydroxyon 08-30 25-hydroxyvitamin D3 [Mass/Vol] 48.1 ng/mL Normal 30.0-100.0 [facility] Comment on above: Performed By: #### 5 [id number] #### [facility] [address] [place] [address] eGFRon 08-31-2023 eGFR 54 mL/min/1.73 m2 Low >=59 [facility] Comment on above: Order Comment: Order added by Discern Expert. Performed By: #### 1 [id number] #### [facility] [address] [place] [address] CBC w/ Auto Diffon 4 Basophil Absolute 0.0 E9/L Normal 0.0-0.2 [facility] Comment on above: Performed By: #### 1 [id number], 4870380, 35352073, 1824795, 9542130 #### [facility] [address] [place] [address] Basophils/100 WBC (Bld) 0.2 % Normal 0.0-2.0 [facility] Comment on above: Performed By: #### 1 2522211, 1162994, 29643096, 6018494, 3176307 #### [facility] [address] [place] [address] Eos Absolute 0.7 E9/L High 0.0-0.5 [facility] Comment on above: Performed By: #### 1 7701218, 8032255, 61995171, 9366600, 4814541 #### [facility] [address] [place] [id number] Eosinophils/100 WBC (Bld) 6.8 % Normal 0.0-8.0 [facility] Comment on above: Performed By: #### 1 9677503, 9845564, 10158107, 2736163, 0271184 #### [facility] [address] [place] [address] Erythrocyte distribution width (RBC) [Ratio] 13.8 % Normal 10.9-14.2 [facility] Comment on above: Performed By: #### 1 1488251, 2546532, 34338759, 4275752, 8866180 #### [facility] [address] [place] [address] Hematocrit (Bld) [Volume fraction] 39.0 % Normal 34.0-46.0 [facility] Comment on above: Performed By: #### 1 4508051, 5015974, 49052939, 1981219, 5412577 #### [facility] [address] [place] [address] Hemoglobin (Bld) [Mass/Vol] 12.4 g/dL Normal 12.0-16.0 [facility] Comment on above: Performed By: #### 1 0805485, 3302497, 11273512, 5689799, 9665781 #### [facility] [address] [place] [address] Lymph Absolute 2.5 E9/L Normal 1.0-4.0 [facility] Comment on above: Performed By: #### 1 4136897, 2947526, 41426834, 1836576, 4275448 #### [facility] [address] [place] [address] Lymphocytes/100 WBC (Bld) 25.9 % Normal 14.0-50.0 [facility] Comment on above: Performed By: #### 1 6504502, 0338653, 37098343, 7102013, 6571474 #### [facility] [address] [place] [address] MCH (RBC) [Entitic mass] 28.2 pg Normal 27.0-34.0 [facility] Comment on above: Performed By: #### 1 8256750, 3866854, 83098393, 6352724, 7962818 #### [facility] [address] [place] [address] MCHC (RBC) [Mass/Vol] 31.5 g/dL Normal 31.4-36.0 [facility] Comment on above: Performed By: #### 1 1596290, 9083777, 64415255, 1168607, 1704770 #### [facility] [address] [place] [address] MCV (RBC) [Entitic vol] 89.3 fL Normal 80.0-100.0 [facility] Comment on above: Performed By: #### 1 8352581, 6005631, 70829621, 4240098, 9015532 #### [facility] [address] [place] [address] [place] Absolute 0.6 E9/L Normal 0.2-1.0 [facility] Comment on above: Performed By: #### 1 6811377, 6015314, 02750199, 3077417, 3342694 #### [facility] [address] [place] [address] Monocytes/100 WBC (Bld) 6.2 % Normal 4.0-14.0 [facility] Comment on above: Performed By: #### 1 5692057, 7765300, 50241950, 5568682, 9474427 #### [facility] [address] [place] [address] Neutro Absolute 6.0 E9/L Normal 2.0-7.5 [facility] Comment on above: Performed By: #### 1 9913358, 6596067, 40440808, 7158696, 4061709 #### [facility] [address] [place] [address] Neutro Auto 60.9 % Normal 36.0-75.0 [facility] Comment on above: Performed By: #### 1 7637522, 4486091, 98571648, 9485248, 9941910 #### [facility] [address] [place] [address] Platelet 288.0 E9/L Normal 150.0-500.0 [facility] Comment on above: Performed By: #### 1 7989092, 5132890, 38885241, 0999121, 2074059 #### [facility] [address] [place] [address] Platelet mean volume (Bld) [Entitic vol] 7.8 fL Normal 6.4-10.8 [facility] Comment on above: Performed By: #### 1 1532015, 9738363, 57002765, 7490270, 1852522 #### [facility] [address] [place] [address] RBC 4.4 E12/L Normal 4.3-5.9 [facility] Comment on above: Performed By: #### 1 7902425, 9933736, 21655529, 8666539, 7904970 #### [facility] [address] [place] [address] WBC 9.8 E9/L Normal 4.0-11.0 [facility] Comment on above: Performed By: #### 1 2411790, 8198778, 05873086, 1945682, 4687104 #### [facility] [address] [place] [address] CHEMISTRYOrdered By: SYSTEM SYSTEM on 05-31-2023 Albumin [...] 05-31-2023 Albumin [Mass/Vol] 4.0 g/dL Normal 3.3-5.0 [facility] Comment on above: Performed By: #### 1 1113578, 2604333, 36274504, 3079097, 9437227 #### [facility] [address] [place] [address] Albumin/Globulin [Mass ratio] 1.0 {ratio} Low 1.1-2.2 [facility] Comment on above: Performed By: #### 1 3945518, 1096486, 33765896, 4097554, 9390811 #### [facility] [address] [place] [address] Alk Phos 90 Int._Unit/L Normal 21-98 [facility] Comment on above: Performed By: #### 1 9413188, 2000838, 52590047, 4491731, 6554645 #### [facility] [address] [place] [address] ALT 13 Int._Unit/L Normal 6-46 [facility] Comment on above: Performed By: #### 1 5061270, 5570846, 04421030, 0873133, 8099574 #### [facility] [address] [place] [address] Anion gap [Moles/Vol] 12 mmol/L Normal 6-16 [facility] Comment on above: Performed By: #### 1 4547523, 2855931, 74444417, 9124552, 0218609 #### [facility] [address] [place] [address] AST 13 Int._Unit/L Normal 5-43 [facility] Comment on above: Performed By: #### 1 2977032, 3080710, 80128145, 3582643, 2116556 #### [facility] [address] [place] [address] Bili Total 0.4 mg/dL Normal 0.0-1.1 [facility] Comment on above: Performed By: #### 1 7824355, 9666481, 68890784, 5589287, 6703070 #### [facility] [address] [place] [address] BUN/Creat Ratio 22 No Units High 10-20 [facility] Comment on above: Performed By: #### 1 5719294, 6439313, 58329647, 9699712, 6743372 #### [facility] [address] [place] [address] Calcium [Mass/Vol] 9.6 mg/dL Normal 8.9-11.1 [facility] Comment on above: Performed By: #### 1 8236063, 5484899, 46627115, 9218558, 8010549 #### [facility] [address] [place] [address] Chloride [Moles/Vol] 105 mmol/L Normal 101-111 [facility] Comment on above: Performed By: #### 1 5762021, 6164973, 18567128, 9022347, 4582390 #### [facility] [address] [place] [address] CO2 [Moles/Vol] 29 mmol/L Normal 21-31 [facility] Comment on above: Performed By: #### 1 0019261, 3689116, 03766616, 0961644, 9708545 #### [facility] [address] [place] [address] Creatinine [Mass/Vol] 0.9 mg/dL Normal 0.5-1.3 [facility] Comment on above: Performed By: #### 1 4842353, 0488123, 30920036, 2680834, 3932254 #### [facility] [address] [place] [address] Globulin (S) [Mass/Vol] 3.9 g/dL Normal 1.4-4.0 [facility] Comment on above: Performed By: #### 1 7376087, 9138707, 47081645, 3027184, 4208894 #### [facility] [address] [place] [address] Glucose [Mass/Vol] 72 mg/dL Normal 55-199 [facility] Comment on above: Performed By: #### 1 4945467, 6793611, 44189685, 4784423, 4084697 #### [facility] [address] [place] [address] Potassium [Moles/Vol] 4.1 mmol/L Normal 3.5-5.3 [facility] Comment on above: Performed By: #### 1 1911349, 8412234, 56382191, 4528396, 3896192 #### [facility] [address] [place] [address] Protein [Mass/Vol] 7.9 g/dL High 6.0-7.8 [facility] Comment on above: Performed By: #### 1 8732472, 4217714, 03792074, 7411443, 4937227 #### [facility] [address] [place] [address] Sodium [Moles/Vol] 142 mmol/L Normal 135-145 [facility] Comment on above: Performed By: #### 1 6086337, 9417542, 51614349, 3791049, 9691092 #### [facility] [address] [place] [address] Urea nitrogen [Mass/Vol] 20 mg/dL Normal 5-21 [facility] Comment on above: Performed By: #### 1 1301261, 1411642, 22811706, 2642156, 0309597 #### [facility] [address] [place] [address] Consent for Treatmenton 05-11 Consent for Treatment [id number] 0TIFF Normal [facility] HEMATOLOGYOrdered By: SYSTEM SYSTEM on 05-31-2023 [...] Normal 80.0 - 100.0 fL Remisol Heme [place] Absolute 0.6 E9/L Normal 0.2 - 1.0 [...] Remisol Heme Physician Orderon 05-31-2023 Physician Order [id number] 0TIFF Normal [facility] T4 & TSHon 05-31-2023 TSH Qn 0.45 m[IU]/L Normal 0.34-5.60 [facility] Comment on above: Performed By: #### 1 9788799, 6105257, 82479424, 5719224, 0248505 #### [facility] [address] [place] [address] T4 11.0 microgram/dL High 4.6-9.1 [facility] Comment on above: Performed By: #### 1 5708666, 5407699, 47598693, 4947507, 6015880 #### [facility] [address] [place] [address] Vit B12on 05-31-2023 Cobalamin (Vitamin B12) [Mass/Vol] 242 pg/mL Normal 50-1500 [facility] Comment on above: Performed By: #### 1 4641806, 7256648, 94426776, 8616983, 2921099 #### [facility] [address] [place] [address] eGFRon 05-31-2023 eGFR 68 mL/min/1.73 m2 Normal >=59 [facility] Comment on above: Order Comment: Order added by Discern Expert. Performed By: #### 1 9338887, 3291623, 98711660, 1287041, 5778030 #### [facility] [address] [place] [address] 1,25 Dihydroxy Vit D Calcitr olon 02-14-2022 1,25 Dihydroxy Vit D Calcitrol 19.4 pg/mL Low 24.8-81.5 [facility] Comment on above: Order Comment: Reaso n for Exam Vitamin D deficiency Result Comment: Perf ormed at: - [facility] [id number] Cardiac Cath Lab Technologist: Favian Colby MD, Phone: [phone] PERFORMED BY: [facility] [address] [place] [address] PATHOLOGIST [employer] HEMANT CHÁVEZ M.D. Performed By: #### G LULS #### Point of Care testing , Complete Blood Count Auto Di ffon 02-14-2022 Basophils (Bld) [#/Vol] 0.0 10*3/uL Normal 0.0-0.2 [facility] Comment on above: Order Comment: Reaso n for Exam Essential hypertension Result Comment: PERF ORMED BY: [facility] [address] [place] [address] PATHOLOGIST [employer] HEMANT CHÁVEZ M.D. Performed By: #### G LULS #### Point of Care testing , Basophils/100 WBC (Bld) 0.2 % Normal . [facility] Comment on above: Order Comment: Reaso n for Exam Essential hypertension Performed By: #### G LULS #### Point of Care testing , Eosinophils (Bld) [#/Vol] 0.6 10*3/uL High 0.0-0.45 [facility] Comment on above: Order Comment: Reaso n for Exam Essential hypertension Performed By: #### G LULS #### Point of Care testing , Eosinophils/100 WBC (Bld) 5.7 % Normal . [facility] Comment on above: Order Comment: Reaso n for Exam Essential hypertension Performed By: #### G LULS #### Point of Care testing , Erythrocyte distribution width (RBC) [Ratio] 14.7 % Normal 11.9-15.3 [facility] Comment on above: Order Comment: Reaso n for Exam Essential hypertension Performed By: #### G LULS #### Point of Care testing , Hematocrit (Bld) [Volume fraction] 38.2 % Normal 34.0-46.4 [facility] Comment on above: Order Comment: Reaso n for Exam Essential hypertension Performed By: #### G LULS #### Point of Care testing , Hemoglobin (Bld) [Mass/Vol] 12.4 g/dL Normal 11.8-15.4 [facility] Comment on above: Order Comment: Reaso n for Exam Essential hypertension Performed By: #### G LULS #### Point of Care testing , Lymphocytes (Bld) [#/Vol] 2.9 10*3/uL Normal 1.00-4.8 [facility] Comment on above: Order Comment: Reaso n for Exam Essential hypertension Performed By: #### G LULS #### Point of Care testing , Lymphocytes/100 WBC (Bld) 28.8 % Normal . [facility] Comment on above: Order Comment: Reaso n for Exam Essential hypertension Performed By: #### G LULS #### Point of Care testing , MCH (RBC) [Entitic mass] 28.0 pg Normal 24.7-34.3 [facility] Comment on above: Order Comment: Reaso n for Exam Essential hypertension Performed By: #### G LULS #### Point of Care testing , MCV (RBC) [Entitic vol] 86.6 fL Normal 80-100 [facility] Comment on above: Order Comment: Reaso n for Exam Essential hypertension Performed By: #### G LULS #### Point of Care testing , Mean Corpuscular HGB Conc 32.4 g/dL Normal 32.0-35.0 [facility] Comment on above: Order Comment: Reaso n for Exam Essential hypertension Performed By: #### G LULS #### Point of Care testing , Monocytes (Bld) [#/Vol] 0.5 10*3/uL Normal 0.0-0.8 [facility] Comment on above: Order Comment: Reaso n for Exam Essential hypertension Performed By: #### G LULS #### Point of Care testing , Monocytes/100 WBC (Bld) 5.1 % Normal . [facility] Comment on above: Order Comment: Reaso n for Exam Essential hypertension Performed By: #### G LULS #### Point of Care testing , Neutrophils (Bld) [#/Vol] 6.1 10*3/uL Normal 1.8-7.7 [facility] Comment on above: Order Comment: Reaso n for Exam Essential hypertension Performed By: #### G LULS #### Point of Care testing , Neutrophils/100 WBC (Bld) 60.2 % Normal . [facility] Comment on above: Order Comment: Reaso n for Exam Essential hypertension Performed By: #### G LULS #### Point of Care testing , Nucleated RBC/100 WBC (Bld) [Ratio] 0.1 % Normal 0-0.5 [facility] Comment on above: Order Comment: Reaso n for Exam Essential hypertension Performed By: #### G LULS #### Point of Care testing , Platelet mean volume (Bld) [Entitic vol] 7.8 fL Normal 6.3-10.7 [facility] Comment on above: Order Comment: Reaso n for Exam Essential hypertension Performed By: #### G LULS #### Point of Care testing , Platelets (Bld) [#/Vol] 330 10*3/uL Normal 150-450 [facility] Comment on above: Order Comment: Reaso n for Exam Essential hypertension Performed By: #### G LULS #### Point of Care testing , RBC (Bld) [#/Vol] 4.41 10*6/uL Normal 3.60-5.00 [facility] Comment on above: Order Comment: Reaso n for Exam Essential hypertension Performed By: #### G LULS #### Point of Care testing , WBC (Bld) [#/Vol] 10.1 10*3/uL Normal 4.5-11.0 [facility] Comment on above: Order Comment: Reaso n for Exam Essential hypertension Performed By: #### G LULS #### Point of Care testing , Comprehensive Metabolic Pane eric 02-14-2022 Albumin [Mass/Vol] 3.8 g/dL Normal 3.2-5.5 [facility] Comment on above: Order Comment: PT FA STED 12 HRS Reason for Exam Essential hypertension Reason for Exam Vitamin B12 deficiency Reason for Exam Hypothyroidism, unspecified type Performed By: #### G LULS #### Point of Care testing , Albumin/Globulin [Mass ratio] 1.0 {ratio} Normal [facility] Comment on above: Order Comment: PT FA STED 12 HRS Reason for Exam Essential hypertension Reason for Exam Vitamin B12 deficiency Reason for Exam Hypothyroidism, unspecified type Performed By: #### G LULS #### Point of Care testing , ALP [Catalytic activity/Vol] 109 U/L High 32-92 [facility] Comment on above: Order Comment: PT FA STED 12 HRS Reason for Exam Essential hypertension Reason for Exam Vitamin B12 deficiency Reason for Exam Hypothyroidism, unspecified type Performed By: #### G LULS #### Point of Care testing , ALT [Catalytic activity/Vol] 14 U/L Normal 10-60 [facility] Comment on above: Order Comment: PT FA STED 12 HRS Reason for Exam Essential hypertension Reason for Exam Vitamin B12 deficiency Reason for Exam Hypothyroidism, unspecified type Performed By: #### G LULS #### Point of Care testing , Anion gap [Moles/Vol] 12.1 mmol/L Normal 6.0-15.0 [facility] Comment on above: Order Comment: PT FA STED 12 HRS Reason for Exam Essential hypertension Reason for Exam Vitamin B12 deficiency Reason for Exam Hypothyroidism, unspecified type Performed By: #### G LULS #### Point of Care testing , AST [Catalytic activity/Vol] 15 U/L Normal 10-42 [facility] Comment on above: Order Comment: PT FA STED 12 HRS Reason for Exam Essential hypertension Reason for Exam Vitamin B12 deficiency Reason for Exam Hypothyroidism, unspecified type Performed By: #### G LULS #### Point of Care testing , Bilirubin [Mass/Vol] 0.7 mg/dL Normal 0.3-1.2 [facility] Comment on above: Order Comment: PT FA STED 12 HRS Reason for Exam Essential hypertension Reason for Exam Vitamin B12 deficiency Reason for Exam Hypothyroidism, unspecified type Performed By: #### G LULS #### Point of Care testing , Calcium [Mass/Vol] 9.3 mg/dL Normal 8.2-10.2 [facility] Comment on above: Order Comment: PT FA STED 12 HRS Reason for Exam Essential hypertension Reason for Exam Vitamin B12 deficiency Reason for Exam Hypothyroidism, unspecified type Performed By: #### G LULS #### Point of Care testing , Chloride [Moles/Vol] 103 mmol/L Normal 95-114 [facility] Comment on above: Order Comment: PT FA STED 12 HRS Reason for Exam Essential hypertension Reason for Exam Vitamin B12 deficiency Reason for Exam Hypothyroidism, unspecified type Performed By: #### G LULS #### Point of Care testing , CO2 [Moles/Vol] 28.0 mmol/L Normal 22.0-30.0 [facility] Comment on above: Order Comment: PT FA STED 12 HRS Reason for Exam Essential hypertension Reason for Exam Vitamin B12 deficiency Reason for Exam Hypothyroidism, unspecified type Performed By: #### G LULS #### Point of Care testing , Creatinine [Mass/Vol] 0.94 mg/dL Normal 0.44-1.03 [facility] Comment on above: Order Comment: PT FA STED 12 HRS Reason for Exam Essential hypertension Reason for Exam Vitamin B12 deficiency Reason for Exam Hypothyroidism, unspecified type Performed By: #### G LULS #### Point of Care testing , Estimated GFR ( Roseline > 60 [facility] Comment on above: Order Comment: PT FA [...] testing , Estimated GFR (Non- Am 59 [facility] Comment on above: Order Comment: PT FA STED 12 HRS Reason for Exam Essential hypertension Reason for Exam Vitamin B12 deficiency Reason for Exam Hypothyroidism, unspecified type Performed By: #### G LULS #### Point of Care testing , Globulin (S) [Mass/Vol] 3.7 g/dL [facility] Comment on above: Order Comment: PT FA STED 12 HRS Reason for Exam Essential hypertension Reason for Exam Vitamin B12 deficiency Reason for Exam Hypothyroidism, unspecified type Performed By: #### G LULS #### Point of Care testing , Glucose [Mass/Vol] 103 mg/dL High 70-100 [facility] Comment on above: Order Comment: PT FA STED 12 HRS Reason for Exam Essential hypertension Reason for Exam Vitamin B12 deficiency Reason for Exam Hypothyroidism, unspecified type Result Comment: [place] Glucose Reference Range is dependent on time and content of last meal. Glucose of more than 200 mg/dL in a nonstressed, ambulatory subject supports the diagnosis of Diabetes Mellitus. ADA recommended reference range Performed By: #### G LULS #### Point of Care testing , Potassium [Moles/Vol] 4.1 mmol/L Normal 3.5-5.1 [facility] Comment on above: Order Comment: PT FA STED 12 HRS Reason for Exam Essential hypertension Reason for Exam Vitamin B12 deficiency Reason for Exam Hypothyroidism, unspecified type Performed By: #### G LULS #### Point of Care testing , Protein [Mass/Vol] 7.5 g/dL Normal 6.1-7.9 [facility] Comment on above: Order Comment: PT FA STED 12 HRS Reason for Exam Essential hypertension Reason for Exam Vitamin B12 deficiency Reason for Exam Hypothyroidism, unspecified type Performed By: #### G LULS #### Point of Care testing , Sodium [Moles/Vol] 139 mmol/L Normal 136-146 [facility] Comment on above: Order Comment: PT FA STED 12 HRS Reason for Exam Essential hypertension Reason for Exam Vitamin B12 deficiency Reason for Exam Hypothyroidism, unspecified type Performed By: #### G LULS #### Point of Care testing , Urea nitrogen [Mass/Vol] 19 mg/dL Normal 9-23 [facility] Comment on above: Order Comment: PT FA STED 12 HRS Reason for Exam Essential hypertension Reason for Exam Vitamin B12 deficiency Reason for Exam Hypothyroidism, unspecified type Performed By: #### G LULS #### Point of Care testing , Lipid Panelon 02-14-2022 Cholesterol [Mass/Vol] 134 mg/dL Low 140-200 [facility] Comment on above: Order Comment: PT [...] in HDL [Mass/Vol] 44 mg/dL Normal 35-85 [facility] Comment on above: Order Comment: PT [...] HDL [Mass ratio] 3.0 {ratio} Normal <5.0 [facility] Comment on above: Order Comment: PT FA STED 12 HRS Reason for Exam Essential hypertension Reason for Exam Vitamin B12 deficiency Reason for Exam Hypothyroidism, unspecified type Performed By: #### G LULS #### Point of Care testing , LDL Cholesterol,Calculat ed 73 mg/dL Normal 0-100 [facility] Comment on above: Order Comment: PT [...] , Triglyceride w/Reflex 85 mg/dL Normal 35-149 [facility] Comment on above: Order Comment: PT [...] testing , VLDL CHOLESTEROL 17 mg/dL Normal [facility] Comment on above: Order Comment: PT FA STED 12 HRS Reason for Exam Essential hypertension Reason for Exam Vitamin B12 deficiency Reason for Exam Hypothyroidism, unspecified type Performed By: #### G LULS #### Point of Care testing , Thyroid Stimulating Hormoneo n 02-14-2022 TSH Qn 1.04 m[IU]/L Normal 0.45-5.33 [facility] Comment on above: Order Comment: PT FA STED 12 HRS Reason for Exam Essential hypertension Reason for Exam Vitamin B12 deficiency Reason for Exam Hypothyroidism, unspecified type Result Comment: PERF ORMED BY: [address] [address] PATHOLOGIST [employer] HEMANT CHÁVEZ M.D. Performed By: #### G LULS #### Point of Care testing , Thyroxine (T4) Totalon 02-14 T4 [Mass/Vol] 13.17 ug/dL High 5.39-11.82 [facility] Comment on above: Order Comment: PT FA STED 12 HRS Reason for Exam Essential hypertension Reason for Exam Vitamin B12 deficiency Reason for Exam Hypothyroidism, unspecified type Performed By: #### G LULS #### Point of Care testing , Vitamin B12on 02-14-2022 Cobalamin (Vitamin B12) [Mass/Vol] 292 pg/mL Normal 180-914 [facility] Comment on above: Order Comment: PT FA STED 12 HRS Reason for Exam Essential hypertension Reason for Exam Vitamin B12 deficiency Reason for Exam Hypothyroidism, unspecified type Performed By: #### G LULS #### Point of Care testing , Basic Metabolic Panelon 05-3 Calcium [Mass/Vol] 8.2 mg/dL Normal 8.2-10.2 [facility] Comment on above: Performed By: #### C BC, BMP #### [facility] [address] [place] [address] [place] Chloride [Moles/Vol] 103 mmol/L Normal 95-114 [facility] Comment on above: Performed By: #### C BC, BMP #### [facility] [address] [place] [id number] [place] CO2 [Moles/Vol] 27.2 mmol/L Normal 22.0-30.0 [facility] Comment on above: Performed By: #### C BC, BMP #### [facility] [address] [place] [address] [place] Creatinine [Mass/Vol] 1.13 mg/dL High 0.44-1.03 [facility] Comment on above: Performed By: #### C BC, BMP #### [facility] [address] [place] [address] [place] Creatinine Clr Calc Pharmacy 59.74 [facility] Comment on above: Result Comment: PERF ORMED BY: [place] [address] PATHOLOGIST [employer] HEMANT CHÁVEZ M.D. Performed By: #### C BC, BMP #### [address] Estimated GFR ( Roseline 58 [facility] Comment on above: Result Comment: GFR estimated reference range: According to KDOQI guidelines, <60 ml/min/1.73m2 is sufficient to diagnose a patient with chronic kidney disease. Performed By: #### C BC, BMP #### [address] Estimated GFR (Non- Am 48 [facility] Comment on above: Performed By: #### C BC, BMP #### [address] Glucose [Mass/Vol] 116 mg/dL High 70-100 [facility] Comment on above: Result Comment: [place] om Glucose Reference Range is dependent on time and content of last meal. Glucose of more than 200 mg/dL in a nonstressed, ambulatory subject supports the diagnosis of Diabetes Mellitus. ADA recommended reference range Performed By: #### C BC, BMP #### [place] [address] [place] Potassium [Moles/Vol] 3.2 mmol/L Low 3.5-5.1 [facility] Comment on above: Performed By: #### C BC, BMP #### [place] [address] [place] Sodium [Moles/Vol] 140 mmol/L Normal 136-146 [facility] Comment on above: Performed By: #### C BC, BMP #### [address] Urea nitrogen [Mass/Vol] 9 mg/dL Normal 9-23 [facility] Comment on above: Performed By: #### C BC, BMP #### [facility] [address] Complete Blood Count Auto Di ffon 09-06-2021 Basophils (Bld) [#/Vol] 0.0 10*3/uL Normal 0.0-0.2 [facility] Comment on above: Result Comment: PERF ORMED BY: [place] [address] PATHOLOGIST [employer] HEMANT CHÁVEZ M.D. Performed By: #### C BC, BMP #### [facility] [address] Basophils/100 WBC (Bld) 0.1 % Normal . [facility] Comment on above: Performed By: #### C BC, BMP #### [facility] [address] Eosinophils (Bld) [#/Vol] 0.2 10*3/uL Normal 0.0-0.45 [facility] Comment on above: Performed By: #### C BC, BMP #### [place] [address] [place] Eosinophils/100 WBC (Bld) 2.3 % Normal . [facility] Comment on above: Performed By: #### C BC, BMP #### [address] Erythrocyte distribution width (RBC) [Ratio] 16.2 % High 11.9-15.3 [facility] Comment on above: Performed By: #### C BC, BMP #### [address] Hematocrit (Bld) [Volume fraction] 30.8 % Low 34.0-46.4 [facility] Comment on above: Performed By: #### C BC, BMP #### [facility] [address] Hemoglobin (Bld) [Mass/Vol] 9.8 g/dL Low 11.8-15.4 [facility] Comment on above: Performed By: #### C BC, BMP #### [facility] [address] Lymphocytes (Bld) [#/Vol] 1.8 10*3/uL Normal 1.00-4.8 [facility] Comment on above: Performed By: #### C BC, BMP #### [facility] [address] Lymphocytes/100 WBC (Bld) 18.5 % Normal . [facility] Comment on above: Performed By: #### C BC, BMP #### [facility] [address] MCH (RBC) [Entitic mass] 27.6 pg Normal 24.7-34.3 [facility] Comment on above: Performed By: #### C BC, BMP #### [address] MCV (RBC) [Entitic vol] 86.1 fL Normal 80-100 [facility] Comment on above: Performed By: #### C BC, BMP #### [address] Mean Corpuscular HGB Conc 32.0 g/dL Normal 32.0-35.0 [facility] Comment on above: Performed By: #### C BC, BMP #### [address] Monocytes (Bld) [#/Vol] 0.7 10*3/uL Normal 0.0-0.8 [facility] Comment on above: Performed By: #### C BC, BMP #### [place] [address] [place] Monocytes/100 WBC (Bld) 6.9 % Normal . [facility] Comment on above: Performed By: #### C BC, BMP #### [address] Neutrophils (Bld) [#/Vol] 7.2 10*3/uL Normal 1.8-7.7 [facility] Comment on above: Performed By: #### C BC, BMP #### [facility] [address] Neutrophils/100 WBC (Bld) 72.2 % Normal . [facility] Comment on above: Performed By: #### C BC, BMP #### [facility] [address] Nucleated RBC/100 WBC (Bld) [Ratio] 0.0 % Normal 0-0.5 [facility] Comment on above: Performed By: #### C BC, BMP #### [address] Platelet mean volume (Bld) [Entitic vol] 8.3 fL Normal 6.3-10.7 [facility] Comment on above: Performed By: #### C MARIA ELENA, BMP #### [address] Platelets (Bld) [#/Vol] 258 10*3/uL Normal 150-450 [facility] Comment on above: Performed By: #### C MARIA ELENA, BMP #### [place] [address] [place] RBC (Bld) [#/Vol] 3.57 10*6/uL Low 3.60-5.00 [facility] Comment on above: Performed By: #### C BC, BMP #### [place] [address] [place] WBC (Bld) [#/Vol] 9.9 10*3/uL Normal 4.5-11.0 [facility] Comment on above: Performed By: #### C BC, BMP #### [address] Glucose Poct Glucometerson 0 09-06-2021 Commemt1 Glu2: Cleaned Meter Normal [facility] Comment on above: Result Comment: PERF ORMED BY: [place] [address] PATHOLOGIST [employer] HEMANT CHÁVEZ M.D. Performed By: #### C BC, BMP #### [address] [place] [address] [place] Glucose [Mass/Vol] 126 mg/dL Normal [facility] Comment on above: Result Comment: [place] om Glucose Reference Range is dependent on time and content of last meal. Glucose of more than 200 mg/dL in a nonstressed, ambulatory subject supports the diagnosis of Diabetes Mellitus. Performed By: #### C BC, BMP #### [facility] [address] Commemt1 Glu2: Cleaned Meter Normal [facility] Comment on above: Result Comment: PERF ORMED BY: [place] [address] PATHOLOGIST [employer] HEMANT CHÁVEZ M.D. Performed By: #### G LULS #### Point of Care testing , Glucose [Mass/Vol] 175 mg/dL Normal [facility] Comment on above: Result Comment: [place] Glucose Reference Range is dependent on time and content of last meal. Glucose of more than 200 mg/dL in a nonstressed, ambulatory subject supports the diagnosis of Diabetes Mellitus. Performed By: #### G LULS #### Point of Care testing , Glucose [Mass/Vol] 103 mg/dL Normal [facility] Comment on above: Result Comment: [place] Glucose Reference Range is dependent on time and content of last meal. Glucose of more than 200 mg/dL in a nonstressed, ambulatory subject supports the diagnosis of Diabetes Mellitus. PERFORMED BY: [place] [address] PATHOLOGIST [employer] HEMANT CHÁVEZ M.D. Performed By: #### C BC, LACTIC, HS TROP, HEPATIC, BMP, LIPASE, BHOB, T4F, TSH3 #### [facility] [address] [place] [address] [place] Glucose Poct Glucometerson 0 09-05-2021 Glucose [Mass/Vol] 150 mg/dL Normal [facility] Comment on above: Result Comment: [place] Glucose Reference Range is dependent on time and content of last meal. Glucose of more than 200 mg/dL in a nonstressed, ambulatory subject supports the diagnosis of Diabetes Mellitus. PERFORMED BY: [facility] [address] [place] [address] PATHOLOGIST [employer] HEMANT CHÁVEZ M.D. Performed By: #### G LULS #### Point of Care testing , Glucose [Mass/Vol] 154 mg/dL Normal [facility] Comment on above: Result Comment: [facility] Glucose Reference Range is dependent on time and content of last meal. Glucose of more than 200 mg/dL in a nonstressed, ambulatory subject supports the diagnosis of Diabetes Mellitus. PERFORMED BY: [place] [address] PATHOLOGIST [employer] HEMANT CHÁVEZ M.D. Performed By: #### G LULS #### Point of Care testing , Glucose [Mass/Vol] 145 mg/dL Normal [facility] Comment on above: Result Comment: [facility] Glucose Reference Range is dependent on time and content of last meal. Glucose of more than 200 mg/dL in a nonstressed, ambulatory subject supports the diagnosis of Diabetes Mellitus. PERFORMED BY: [place] [address] PATHOLOGIST [employer] HEMANT CHÁVEZ M.D. Performed By: #### G LULS #### Point of Care testing , Glucose [Mass/Vol] 167 mg/dL Normal [facility] Comment on above: Result Comment: [facility] Glucose Reference Range is dependent on time and content of last meal. Glucose of more than 200 mg/dL in a nonstressed, ambulatory subject supports the diagnosis of Diabetes Mellitus. PERFORMED BY: [place] [address] PATHOLOGIST [employer] HEMANT CHÁVEZ M.D. Performed By: #### C BC, LACTIC, HS TROP, HEPATIC, BMP, LIPASE, BHOB, T4F, TSH3 #### [place] [id number] [facility] Basic Metabolic Panelon 05-2 Calcium [Mass/Vol] 8.2 mg/dL Normal 8.2-10.2 [facility] Comment on above: Performed By: #### C BC, BMP #### [facility] [address] [place] [address] [place] Chloride [Moles/Vol] 110 mmol/L Normal 95-114 [facility] Comment on above: Performed By: #### C BC, BMP #### [facility] [address] CO2 [Moles/Vol] 25.2 mmol/L Normal 22.0-30.0 [facility] Comment on above: Performed By: #### C BC, BMP #### [facility] [address] Creatinine [Mass/Vol] 1.23 mg/dL High 0.44-1.03 [facility] Comment on above: Performed By: #### C BC, BMP #### [address] Creatinine Clr Calc Pharmacy 54.94 [facility] Comment on above: Result Comment: PERF ORMED BY: [place] [address] PATHOLOGIST [employer] HEMANT CHÁVEZ M.D. Performed By: #### C BC, BMP #### [address] Estimated GFR ( Roseline 52 [facility] Comment on above: Result Comment: GFR estimated reference range: According to KDOQI guidelines, <60 ml/min/1.73m2 is sufficient to diagnose a patient with chronic kidney disease. Performed By: #### C BC, BMP #### [place] [address] [place] Estimated GFR (Non- Am 43 [facility] Comment on above: Performed By: #### C BC, BMP #### [address] Glucose [Mass/Vol] 136 mg/dL High 70-100 [facility] Comment on above: Result Comment: [place] Glucose Reference Range is dependent on time and content of last meal. Glucose of more than 200 mg/dL in a nonstressed, ambulatory subject supports the diagnosis of Diabetes Mellitus. ADA recommended reference range Performed By: #### C BC, BMP #### [address] Potassium [Moles/Vol] 3.3 mmol/L Low 3.5-5.1 [facility] Comment on above: Performed By: #### C BC, BMP #### [address] Sodium [Moles/Vol] 143 mmol/L Normal 136-146 [facility] Comment on above: Performed By: #### C BC, BMP #### [address] Urea nitrogen [Mass/Vol] 17 mg/dL Normal 9-23 [facility] Comment on above: Performed By: #### C BC, BMP #### [address] Complete Blood Count Auto Di ffon 09-04-2021 Basophils (Bld) [#/Vol] 0.0 10*3/uL Normal 0.0-0.2 [facility] Comment on above: Result Comment: PERF ORMED BY: [place] [address] PATHOLOGIST [employer] HEMANT CHÁVEZ M.D. Performed By: #### C BC, BMP #### [place] [address] [place] Basophils/100 WBC (Bld) 0.1 % Normal . [facility] Comment on above: Performed By: #### C BC, BMP #### [place] [address] [place] Eosinophils (Bld) [#/Vol] 0.3 10*3/uL Normal 0.0-0.45 [facility] Comment on above: Performed By: #### C BC, BMP #### [place] [address] [place] Eosinophils/100 WBC (Bld) 3.3 % Normal . [facility] Comment on above: Performed By: #### C BC, BMP #### [address] Erythrocyte distribution width (RBC) [Ratio] 16.4 % High 11.9-15.3 [facility] Comment on above: Performed By: #### C BC, BMP #### [address] Hematocrit (Bld) [Volume fraction] 30.1 % Low 34.0-46.4 [facility] Comment on above: Performed By: #### C BC, BMP #### [address] Hemoglobin (Bld) [Mass/Vol] 9.5 g/dL Low 11.8-15.4 [facility] Comment on above: Performed By: #### C BC, BMP #### [address] Lymphocytes (Bld) [#/Vol] 1.1 10*3/uL Normal 1.00-4.8 [facility] Comment on above: Performed By: #### C BC, BMP #### [address] Lymphocytes/100 WBC (Bld) 13.8 % Normal . [facility] Comment on above: Performed By: #### C BC, BMP #### [address] MCH (RBC) [Entitic mass] 27.7 pg Normal 24.7-34.3 [facility] Comment on above: Performed By: #### C BC, BMP #### [address] MCV (RBC) [Entitic vol] 87.3 fL Normal 80-100 [facility] Comment on above: Performed By: #### C BC, BMP #### [address] Mean Corpuscular HGB Conc 31.7 g/dL Low 32.0-35.0 [facility] Comment on above: Performed By: #### C BC, BMP #### [address] [place] [address] [place] Monocytes (Bld) [#/Vol] 0.6 10*3/uL Normal 0.0-0.8 [facility] Comment on above: Performed By: #### C BC, BMP #### [facility] [address] [place] [address] [place] Monocytes/100 WBC (Bld) 7.8 % Normal . [facility] Comment on above: Performed By: #### C BC, BMP #### [facility] [address] [place] [address] [place] Neutrophils (Bld) [#/Vol] 6.0 10*3/uL Normal 1.8-7.7 [facility] Comment on above: Performed By: #### C MARIA ELENA, BMP #### [place] [address] [place] Neutrophils/100 WBC (Bld) 75.0 % Normal . [facility] Comment on above: Performed By: #### C MARIA ELENA, BMP #### [facility] [address] [place] [address] [place] Nucleated RBC/100 WBC (Bld) [Ratio] 0.1 % Normal 0-0.5 [facility] Comment on above: Performed By: #### C MARIA ELENA, BMP #### [place] [address] [place] Platelet mean volume (Bld) [Entitic vol] 8.0 fL Normal 6.3-10.7 [facility] Comment on above: Performed By: #### C BC, BMP #### [facility] [address] [place] [address] [place] Platelets (Bld) [#/Vol] 236 10*3/uL Normal 150-450 [facility] Comment on above: Performed By: #### C BC, BMP #### [facility] [address] [place] [address] [place] RBC (Bld) [#/Vol] 3.45 10*6/uL Low 3.60-5.00 [facility] Comment on above: Performed By: #### C BC, BMP #### [address] [place] [address] [place] WBC (Bld) [#/Vol] 8.0 10*3/uL Normal 4.5-11.0 [facility] Comment on above: Performed By: #### C BC, BMP #### [address] Glucose Poct Glucometerson 0 09-04-2021 Glucose [Mass/Vol] 131 mg/dL Normal [facility] Comment on above: Result Comment: [place] Glucose Reference Range is dependent on time and content of last meal. Glucose of more than 200 mg/dL in a nonstressed, ambulatory subject supports the diagnosis of Diabetes Mellitus. PERFORMED BY: [place] [address] PATHOLOGIST [employer] HEMANT CHÁVEZ M.D. Performed By: #### C BC, LACTIC, HS TROP, HEPATIC, BMP, LIPASE, BHOB, T4F, TSH3 #### [address] Commemt1 Glu2: Cleaned Meter [facility] Comment on above: Result Comment: PERF ORMED BY: [place] [address] PATHOLOGIST [employer] HEMANT CHÁVEZ M.D. Performed By: #### G LULS #### Point of Care testing , Glucose [Mass/Vol] 170 mg/dL Normal [facility] Comment on above: Result Comment: [place] Glucose Reference Range is dependent on time and content of last meal. Glucose of more than 200 mg/dL in a nonstressed, ambulatory subject supports the diagnosis of Diabetes Mellitus. Performed By: #### G LULS #### Point of Care testing , Commemt1 Glu2: Cleaned Meter Normal [facility] Comment on above: Result Comment: PERF ORMED BY: [place] [address] PATHOLOGIST [employer] HEMANT CHÁVEZ M.D. Performed By: #### G LULS #### Point of Care testing , Glucose [Mass/Vol] 141 mg/dL Normal [facility] Comment on above: Result Comment: [place] om Glucose Reference Range is dependent on time and content of last meal. Glucose of more than 200 mg/dL in a nonstressed, ambulatory subject supports the diagnosis of Diabetes Mellitus. Performed By: #### G LULS #### Point of Care testing , Commemt1 Glu2: Cleaned Meter Normal [facility] Comment on above: Result Comment: PERF ORMED BY: [address] [place] [address] PATHOLOGIST [employer] HEMANT CHÁVEZ M.D. Performed By: #### G LULS #### Point of Care testing , Glucose [Mass/Vol] 114 mg/dL Normal [facility] Comment on above: Result Comment: [place] om Glucose Reference Range is dependent on time and content of last meal. Glucose of more than 200 mg/dL in a nonstressed, ambulatory subject supports the diagnosis of Diabetes Mellitus. Performed By: #### G LULS #### Point of Care testing , Basic Metabolic Panelon 05-2 Calcium [Mass/Vol] 8.4 mg/dL Normal 8.2-10.2 [facility] Comment on above: Performed By: #### G LULS #### Point of Care testing , Chloride [Moles/Vol] 111 mmol/L Normal 95-114 [facility] Comment on above: Performed By: #### G LULS #### Point of Care testing , CO2 [Moles/Vol] 26.2 mmol/L Normal 22.0-30.0 [facility] Comment on above: Performed By: #### G LULS #### Point of Care testing , Creatinine [Mass/Vol] 1.37 mg/dL High 0.44-1.03 [facility] Comment on above: Performed By: #### G LULS #### Point of Care testing , Creatinine Clr Calc Pharmacy 48.64 [facility] Comment on above: Result Comment: PERF ORMED BY: [facility] [address] [place] [address] PATHOLOGIST [employer] HEMANT CHÁVEZ M.D. Performed By: #### G LULS #### Point of Care testing , Estimated GFR ( Roseline 46 Normal [facility] Comment on above: Result Comment: GFR estimated reference range: According to KDOQI guidelines, <60 ml/min/1.73m2 is sufficient to diagnose a patient with chronic kidney disease. Performed By: #### G LULS #### Point of Care testing , Estimated GFR (Non- Am 38 Normal [facility] Comment on above: Performed By: #### G LULS #### Point of Care testing , Glucose [Mass/Vol] 145 mg/dL High 70-100 [facility] Comment on above: Result Comment: [place] Glucose Reference Range is dependent on time and content of last meal. Glucose of more than 200 mg/dL in a nonstressed, ambulatory subject supports the diagnosis of Diabetes Mellitus. ADA recommended reference range Performed By: #### G LULS #### Point of Care testing , Potassium [Moles/Vol] 3.2 mmol/L Low 3.5-5.1 [facility] Comment on above: Performed By: #### G LULS #### Point of Care testing , Sodium [Moles/Vol] 146 mmol/L Normal 136-146 [facility] Comment on above: Performed By: #### G LULS #### Point of Care testing , Urea nitrogen [Mass/Vol] 23 mg/dL Normal 9-23 [facility] Comment on above: Performed By: #### G LULS #### Point of Care testing , Complete Blood Count Auto Di ffon 09-03-2021 Basophils (Bld) [#/Vol] 0.0 10*3/uL Normal 0.0-0.2 [facility] Comment on above: Result Comment: PERF ORMED BY: [address] [address] PATHOLOGIST [employer] HEMANT CHÁVEZ M.D. Performed By: #### C BC, LACTIC, HS TROP, HEPATIC, BMP, LIPASE, BHOB, T4F, TSH3 #### [address] [address] [place] Basophils/100 WBC (Bld) 0.1 % Normal . [facility] Comment on above: Performed By: #### C BC, LACTIC, HS TROP, HEPATIC, BMP, LIPASE, BHOB, T4F, TSH3 #### [address] Eosinophils (Bld) [#/Vol] 0.3 10*3/uL Normal 0.0-0.45 [facility] Comment on above: Performed By: #### C BC, LACTIC, HS TROP, HEPATIC, BMP, LIPASE, BHOB, T4F, TSH3 #### [address] Eosinophils/100 WBC (Bld) 3.6 % Normal . [facility] Comment on above: Performed By: #### C BC, LACTIC, HS TROP, HEPATIC, BMP, LIPASE, BHOB, T4F, TSH3 #### [address] Erythrocyte distribution width (RBC) [Ratio] 16.2 % High 11.9-15.3 [facility] Comment on above: Performed By: #### C BC, LACTIC, HS TROP, HEPATIC, BMP, LIPASE, BHOB, T4F, TSH3 #### [address] Hematocrit (Bld) [Volume fraction] 31.9 % Low 34.0-46.4 [facility] Comment on above: Performed By: #### C BC, LACTIC, HS TROP, HEPATIC, BMP, LIPASE, BHOB, T4F, TSH3 #### [address] Hemoglobin (Bld) [Mass/Vol] 10.2 g/dL Low 11.8-15.4 [facility] Comment on above: Performed By: #### C BC, LACTIC, HS TROP, HEPATIC, BMP, LIPASE, BHOB, T4F, TSH3 #### [address] Lymphocytes (Bld) [#/Vol] 1.0 10*3/uL Normal 1.00-4.8 [facility] Comment on above: Performed By: #### C BC, LACTIC, HS TROP, HEPATIC, BMP, LIPASE, BHOB, T4F, TSH3 #### [address] Lymphocytes/100 WBC (Bld) 10.4 % Normal . [facility] Comment on above: Performed By: #### C BC, LACTIC, HS TROP, HEPATIC, BMP, LIPASE, BHOB, T4F, TSH3 #### [address] MCH (RBC) [Entitic mass] 28.0 pg Normal 24.7-34.3 [facility] Comment on above: Performed By: #### C BC, LACTIC, HS TROP, HEPATIC, BMP, LIPASE, BHOB, T4F, TSH3 #### [address] MCV (RBC) [Entitic vol] 87.6 fL Normal 80-100 [facility] Comment on above: Performed By: #### C BC, LACTIC, HS TROP, HEPATIC, BMP, LIPASE, BHOB, T4F, TSH3 #### [address] Mean Corpuscular HGB Conc 31.9 g/dL Low 32.0-35.0 [facility] Comment on above: Performed By: #### C BC, LACTIC, HS TROP, HEPATIC, BMP, LIPASE, BHOB, T4F, TSH3 #### [address] Monocytes (Bld) [#/Vol] 0.7 10*3/uL Normal 0.0-0.8 [facility] Comment on above: Performed By: #### C BC, LACTIC, HS TROP, HEPATIC, BMP, LIPASE, BHOB, T4F, TSH3 #### [address] Monocytes/100 WBC (Bld) 7.5 % Normal . [facility] Comment on above: Performed By: #### C BC, LACTIC, HS TROP, HEPATIC, BMP, LIPASE, BHOB, T4F, TSH3 #### [address] Neutrophils (Bld) [#/Vol] 7.2 10*3/uL Normal 1.8-7.7 [facility] Comment on above: Performed By: #### C BC, LACTIC, HS TROP, HEPATIC, BMP, LIPASE, BHOB, T4F, TSH3 #### [address] Neutrophils/100 WBC (Bld) 78.4 % Normal . [facility] Comment on above: Performed By: #### C BC, LACTIC, HS TROP, HEPATIC, BMP, LIPASE, BHOB, T4F, TSH3 #### [address] Nucleated RBC/100 WBC (Bld) [Ratio] 0.0 % Normal 0-0.5 [facility] Comment on above: Performed By: #### C BC, LACTIC, HS TROP, HEPATIC, BMP, LIPASE, BHOB, T4F, TSH3 #### [address] [address] Platelet mean volume (Bld) [Entitic vol] 8.2 fL Normal 6.3-10.7 [facility] Comment on above: Performed By: #### C BC, LACTIC, HS TROP, HEPATIC, BMP, LIPASE, BHOB, T4F, TSH3 #### [address] Platelets (Bld) [#/Vol] 273 10*3/uL Normal 150-450 [facility] Comment on above: Performed By: #### C BC, LACTIC, HS TROP, HEPATIC, BMP, LIPASE, BHOB, T4F, TSH3 #### [address] RBC (Bld) [#/Vol] 3.64 10*6/uL Normal 3.60-5.00 [facility] Comment on above: Performed By: #### C BC, LACTIC, HS TROP, HEPATIC, BMP, LIPASE, BHOB, T4F, TSH3 #### [facility] [address] WBC (Bld) [#/Vol] 9.1 10*3/uL Normal 4.5-11.0 [facility] Comment on above: Performed By: #### C BC, LACTIC, HS TROP, HEPATIC, BMP, LIPASE, BHOB, T4F, TSH3 #### [facility] [address] [place] [address] [place] Glucose Poct Glucometerson 0 09-03-2021 Commemt1 Glu2: Cleaned Meter [facility] Comment on above: Result Comment: PERF ORMED BY: [place] [address] PATHOLOGIST [employer] HEMANT CHÁVEZ M.D. Performed By: #### G LULS #### Point of Care testing , Glucose [Mass/Vol] 152 mg/dL Normal [facility] Comment on above: Result Comment: [place] Glucose Reference Range is dependent on time and content of last meal. Glucose of more than 200 mg/dL in a nonstressed, ambulatory subject supports the diagnosis of Diabetes Mellitus. Performed By: #### G LULS #### Point of Care testing , Commemt1 Glu2: Cleaned Meter [facility] Comment on above: Result Comment: PERF ORMED BY: [place] [address] PATHOLOGIST [employer] HEMANT CHÁVEZ M.D. Performed By: #### G LULS #### Point of Care testing , Glucose [Mass/Vol] 154 mg/dL Normal [facility] Comment on above: Result Comment: [place] Glucose Reference Range is dependent on time and content of last meal. Glucose of more than 200 mg/dL in a nonstressed, ambulatory subject supports the diagnosis of Diabetes Mellitus. Performed By: #### G LULS #### Point of Care testing , Commemt1 Glu2: Cleaned Meter [facility] Comment on above: Result Comment: PERF ORMED BY: [place] [address] PATHOLOGIST [employer] HEMANT CHÁVEZ M.D. Performed By: #### G LULS #### Point of Care testing , Glucose [Mass/Vol] 128 mg/dL Normal [facility] Comment on above: Result Comment: [place] Glucose Reference Range is dependent on time and content of last meal. Glucose of more than 200 mg/dL in a nonstressed, ambulatory subject supports the diagnosis of Diabetes Mellitus. Performed By: #### G LULS #### Point of Care testing , Glucose [Mass/Vol] 141 mg/dL Normal [facility] Comment on above: Result Comment: [place] Glucose Reference Range is dependent on time and content of last meal. Glucose of more than 200 mg/dL in a nonstressed, ambulatory subject supports the diagnosis of Diabetes Mellitus. PERFORMED BY: [facility] [address] [place] [address] PATHOLOGIST [employer] HEMANT CHÁVEZ M.D. Performed By: #### G LULS #### Point of Care testing , A1C with Estimated Average Stan [facility] 09-02-2021 Glucose [Mass/Vol] 126 mg/dL Normal [facility] Comment on above: Result Comment: PERF ORMED BY: [facility] [address] [place] [address] PATHOLOGIST [employer] HEMANT CHÁVEZ M.D. Performed By: #### G LULS #### Point of Care testing , HbA1c (Bld) [Mass fraction] 6.0 % High 4.3-5.6 [facility] Comment on above: Result Comment: Incr eased risk for diabetes: 5.7 - 6.4 diabetes: >6.4 glycemic control for adults with diabetes: <7.0 Performed By: #### G LULS #### Point of Care testing , Basic Metabolic Panelon 08-08 Calcium [Mass/Vol] 8.8 mg/dL Normal 8.2-10.2 [facility] Comment on above: Performed By: #### G LULS #### Point of Care testing , Chloride [Moles/Vol] 113 mmol/L Normal 95-114 [facility] Comment on above: Performed By: #### G LULS #### Point of Care testing , CO2 [Moles/Vol] 20.6 mmol/L Low 22.0-30.0 [facility] Comment on above: Performed By: #### G LULS #### Point of Care testing , Creatinine [Mass/Vol] 1.26 mg/dL High 0.44-1.03 [facility] Comment on above: Performed By: #### G LULS #### Point of Care testing , Creatinine Clr Calc Pharmacy 51.25 [facility] Comment on above: Performed By: #### G LULS #### Point of Care testing , Estimated GFR ( Roseline 51 [facility] Comment on above: Result Comment: GFR estimated reference range: According to KDOQI guidelines, <60 ml/min/1.73m2 is sufficient to diagnose a patient with chronic kidney disease. Performed By: #### G LULS #### Point of Care testing , Estimated GFR (Non- Am 42 [facility] Comment on above: Performed By: #### G LULS #### Point of Care testing , Glucose [Mass/Vol] 112 mg/dL High 70-100 [facility] Comment on above: Result Comment: [place] Glucose Reference Range is dependent on time and content of last meal. Glucose of more than 200 mg/dL in a nonstressed, ambulatory subject supports the diagnosis of Diabetes Mellitus. ADA recommended reference range Performed By: #### G LULS #### Point of Care testing , Potassium [Moles/Vol] 3.7 mmol/L Normal 3.5-5.1 [facility] Comment on above: Performed By: #### G LULS #### Point of Care testing , Sodium [Moles/Vol] 150 mmol/L High 136-146 [facility] Comment on above: Performed By: #### G LULS #### Point of Care testing , Urea nitrogen [Mass/Vol] 31 mg/dL High 9-23 [facility] Comment on above: Performed By: #### G LULS #### Point of Care testing , Complete Blood Count Auto Di ffon 05-27-2022 Basophils (Bld) [#/Vol] 0.0 10*3/uL Normal 0.0-0.2 [facility] Comment on above: Result Comment: PERF ORMED BY: [facility] [address] PATHOLOGIST [employer] HEMANT CHÁVEZ M.D. Performed By: #### G LULS #### Point of Care testing , Basophils/100 WBC (Bld) 0.1 % Normal . [facility] Comment on above: Performed By: #### G LULS #### Point of Care testing , Eosinophils (Bld) [#/Vol] 0.2 10*3/uL Normal 0.0-0.45 [facility] Comment on above: Performed By: #### G LULS #### Point of Care testing , Eosinophils/100 WBC (Bld) 1.5 % Normal . [facility] Comment on above: Performed By: #### G LULS #### Point of Care testing , Erythrocyte distribution width (RBC) [Ratio] 16.3 % High 11.9-15.3 [facility] Comment on above: Performed By: #### G LULS #### Point of Care testing , Hematocrit (Bld) [Volume fraction] 39.3 % Normal 34.0-46.4 [facility] Comment on above: Performed By: #### G LULS #### Point of Care testing , Hemoglobin (Bld) [Mass/Vol] 12.2 g/dL Normal 11.8-15.4 [facility] Comment on above: Performed By: #### G LULS #### Point of Care testing , Lymphocytes (Bld) [#/Vol] 1.1 10*3/uL Normal 1.00-4.8 [facility] Comment on above: Performed By: #### G LULS #### Point of Care testing , Lymphocytes/100 WBC (Bld) 9.0 % Normal . [facility] Comment on above: Performed By: #### G LULS #### Point of Care testing , MCH (RBC) [Entitic mass] 27.5 pg Normal 24.7-34.3 [facility] Comment on above: Performed By: #### Stan BANGURA #### Point of Care testing , MCV (RBC) [Entitic vol] 88.2 fL Normal 80-100 [facility] Comment on above: Performed By: #### Stan BANGURA #### Point of Care testing , Mean Corpuscular HGB Conc 31.2 g/dL Low 32.0-35.0 [facility] Comment on above: Performed By: #### Stan HUBBARDLS #### Point of Care testing , Monocytes (Bld) [#/Vol] 1.0 10*3/uL High 0.0-0.8 [facility] Comment on above: Performed By: #### Stan BANGURA #### Point of Care testing , Monocytes/100 WBC (Bld) 8.0 % Normal . [facility] Comment on above: Performed By: #### Stan BANGURA #### Point of Care testing , Neutrophils (Bld) [#/Vol] 9.9 10*3/uL High 1.8-7.7 [facility] Comment on above: Performed By: #### Stan BANGURA #### Point of Care testing , Neutrophils/100 WBC (Bld) 81.4 % Normal . [facility] Comment on above: Performed By: #### Stan BANGURA #### Point of Care testing , Nucleated RBC/100 WBC (Bld) [Ratio] 0.1 % Normal 0-0.5 [facility] Comment on above: Performed By: #### Stan HUBBARDLS #### Point of Care testing , Platelet mean volume (Bld) [Entitic vol] 8.0 fL Normal 6.3-10.7 [facility] Comment on above: Performed By: #### Stan BANGURA #### Point of Care testing , Platelets (Bld) [#/Vol] 291 10*3/uL Normal 150-450 [facility] Comment on above: Performed By: #### Stan BANGURA #### Point of Care testing , RBC (Bld) [#/Vol] 4.45 10*6/uL Normal 3.60-5.00 [facility] Comment on above: Performed By: #### G LULS #### Point of Care testing , WBC (Bld) [#/Vol] 12.1 10*3/uL High 4.5-11.0 [facility] Comment on above: Performed By: #### G LULS #### Point of Care testing , Glucose Poct Glucometerson 0 09-02-2021 Glucose [Mass/Vol] 124 mg/dL Normal [facility] Comment on above: Result Comment: [place] Glucose Reference Range is dependent on time and content of last meal. Glucose of more than 200 mg/dL in a nonstressed, ambulatory subject supports the diagnosis of Diabetes Mellitus. PERFORMED BY: [address] [place] [id number] PATHOLOGIST [employer] HEMANT CHÁVEZ M.D. Performed By: #### G LULS #### Point of Care testing , Glucose [Mass/Vol] 130 mg/dL Normal [facility] Comment on above: Result Comment: [place] Glucose Reference Range is dependent on time and content of last meal. Glucose of more than 200 mg/dL in a nonstressed, ambulatory subject supports the diagnosis of Diabetes Mellitus. PERFORMED BY: [address] [place] [address] PATHOLOGIST [employer] HEMANT CHÁVEZ M.D. Performed By: #### G LULS #### Point of Care testing , Commemt1 Glu2: Cleaned Meter Normal [facility] Comment on above: Result Comment: PERF ORMED BY: [facility] [address] [place] [address] PATHOLOGIST [employer] HEMANT CHÁVEZ M.D. Performed By: #### G LULS #### Point of Care testing , Glucose [Mass/Vol] 131 mg/dL Normal [facility] Comment on above: Result Comment: [place] Glucose Reference Range is dependent on time and content of last meal. Glucose of more than 200 mg/dL in a nonstressed, ambulatory subject supports the diagnosis of Diabetes Mellitus. Performed By: #### G LULS #### Point of Care testing , Commemt1 Glu2: Cleaned Meter Normal [facility] Comment on above: Result Comment: PERF ORMED BY: [place] [address] PATHOLOGIST [employer] HEMANT CHÁVEZ M.D. Performed By: #### C BC, BMP #### [address] Glucose [Mass/Vol] 107 mg/dL Normal [facility] Comment on above: Result Comment: [facility] Glucose Reference Range is dependent on time and content of last meal. Glucose of more than 200 mg/dL in a nonstressed, ambulatory subject supports the diagnosis of Diabetes Mellitus. Performed By: #### C BC, BMP #### [address] Thyroid Stimulating Hormoneo n 09-02-2021 TSH Qn 7.55 m[IU]/L High 0.45-5.33 [facility] Comment on above: Performed By: #### G LULS #### Point of Care testing , Troponin I High Sensitivityo 09-02-2021 Troponin I High Sensitivity 31 pg/mL High 0-15 [facility] Comment on above: Result Comment: PERF ORMED BY: [place] [address] PATHOLOGIST [employer] HEMANT CHÁVEZ M.D. Performed By: #### G LULS #### Point of Care testing , Vit. B12/Folate Profileon Cobalamin (Vitamin B12) [Mass/Vol] 187 pg/mL Normal 180-914 [facility] Comment on above: Performed By: #### G LULS #### Point of Care testing , Folate 9.3 ng/mL Normal >5.9 [facility] Comment on above: Result Comment: Marjorie te reference range: >5.9 ng/ml The WHO technical consultation on folate and vitamin b12 deficiencies has determined that folate concentrations less than 4 ng/ml are considered deficient. Performed By: #### G LULS #### Point of Care testing , Vitamin D 25 Hydroxy Totalon 09-02-2021 Vitamin D 25 Hydroxy Total 16.6 ng/mL Low 30-100 [facility] Comment on above: Result Comment: MIHAELA MIN D STATUS 25(OH)VITAMIN D RANGE (ng/mL) Deficient <20 Insufficient 20 to <30 Sufficient 30 to 100 Reference: Jayce MF,Arnoldo NC, Hossein DOMINIQUE, et al. Evaluation,treatment, and prevention of vitamin D deficiency; an Endocrine Society clinical practice guideline. JCEM. 2010; 96(7):1911-30. PERFORMED BY: [facility] [address] [place] [address] PATHOLOGIST [employer] HEMANT CHÁVEZ M.D. Performed By: #### G LULS #### Point of Care testing , Basic Metabolic Panelon 08-08 Calcium [Mass/Vol] 8.8 mg/dL Normal 8.2-10.2 [facility] Comment on above: Performed By: #### G LULS #### Point of Care testing , Chloride [Moles/Vol] 106 mmol/L Normal 95-114 [facility] Comment on above: Performed By: #### G LULS #### Point of Care testing , CO2 [Moles/Vol] 23.9 mmol/L Normal 22.0-30.0 [facility] Comment on above: Performed By: #### G LULS #### Point of Care testing , Creatinine [Mass/Vol] 1.62 mg/dL High 0.44-1.03 [facility] Comment on above: Performed By: #### G LULS #### Point of Care testing , Creatinine Clr Calc Pharmacy 39.63 [facility] Comment on above: Performed By: #### G LULS #### Point of Care testing , Estimated GFR ( Roseline 38 [facility] Comment on above: Result Comment: GFR estimated reference range: According to KDOQI guidelines, <60 ml/min/1.73m2 is sufficient to diagnose a patient with chronic kidney disease. Performed By: #### G LULS #### Point of Care testing , Estimated GFR (Non- Am 32 Normal [facility] Comment on above: Performed By: #### G LULS #### Point of Care testing , Glucose [Mass/Vol] 158 mg/dL High 70-100 [facility] Comment on above: Result Comment: [place] Glucose Reference Range is dependent on time and content of last meal. Glucose of more than 200 mg/dL in a nonstressed, ambulatory subject supports the diagnosis of Diabetes Mellitus. ADA recommended reference range Performed By: #### G LULS #### Point of Care testing , Potassium [Moles/Vol] 3.1 mmol/L Low 3.5-5.1 [facility] Comment on above: Performed By: #### G LULS #### Point of Care testing , Sodium [Moles/Vol] 146 mmol/L Normal 136-146 [facility] Comment on above: Performed By: #### G LULS #### Point of Care testing , Urea nitrogen [Mass/Vol] 41 mg/dL High 9-23 [facility] Comment on above: Performed By: #### G LULS #### Point of Care testing , Beta Hydroxybuterateon 09-01 Beta Hydroxybuterate 2.73 mmol/L High 0.05-0.27 [facility] Comment on above: Performed By: #### [...] developed and its performance characteristic determined by [employer] and validated at [facility]. This test has not been FDA cleared [...] for SARS Antigen by JW PERFORMED BY: [address] [address] PATHOLOGIST [employer] HEMANT CHÁVEZ M.D. 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 This test has not been FDA cleared [...] is terminated or revoked sooner. PERFORMED BY: [place] [id number] PATHOLOGIST [employer] HEMANT CHÁVEZ M.D. Performed By: #### G LULS #### Point of Care testing , CT abdomen pelvis w conon CT abdomen pelvis w con [facility] [place] [address] [place], [place] [address] CT Scan Report Signed Patient: Jeanmarie Garcia MR#: [id number] : 1950 Acct:[id number] Age/Sex: 71 / F ADM Date: 09/01/21 Loc: ER Room: Type: [facility] ER Attending Dr: Ordering Provider: Delon [...] Gerson White M.D.09/01/2021 2:24 PM Dictation Location: [facility]13 Transcribed By: [facility] 09/01/21 1424 Dictated By: Gerson White DO 09/01/21 1413 Signed By: 09/01/21 142 [facility] CT head/brain wo conon 09-01 CT head/brain wo con [facility] [place] [address] [place] [address] CT Scan Report Signed Patient: Jeanmarie Garcia MR#: [id number] : 1950 Acct:[id number] Age/Sex: 71 / F ADM Date: 09/01/21 Loc: Room: [address] [place] [address] Type: ADM IN Attending Dr: Elizabte Wilson MD Ordering Provider: Delon Bahena DO [...] Perez Jr., M.D.09/01/2021 4:50 PM Dictation Location: [place] [address] Transcribed By: [facility] 09/01/211649 Dictated By: Kana Perez Jr, MD 09/01/211644 Signed By: 09/01/211649 Normal [facility] Complete Blood Count Auto Di ffon 09-01-2021 Basophils (Bld) [#/Vol] 0.0 10*3/uL Normal 0.0-0.2 [facility] Comment on above: Result Comment: PERF ORMED BY: [place] [address] PATHOLOGIST [employer] HEMANT CHÁVEZ M.D. Performed By: #### C BC, LACTIC, HS TROP, HEPATIC, BMP, LIPASE, BHOB, T4F, TSH3 #### [address] Basophils/100 WBC (Bld) 0.3 % Normal . [facility] Comment on above: Performed By: #### C BC, LACTIC, HS TROP, HEPATIC, BMP, LIPASE, BHOB, T4F, TSH3 #### [address] Eosinophils (Bld) [#/Vol] 0.0 10*3/uL Normal 0.0-0.45 [facility] Comment on above: Performed By: #### C BC, LACTIC, HS TROP, HEPATIC, BMP, LIPASE, BHOB, T4F, TSH3 #### [address] Eosinophils/100 WBC (Bld) 0.1 % Normal . [facility] Comment on above: Performed By: #### C BC, LACTIC, HS TROP, HEPATIC, BMP, LIPASE, BHOB, T4F, TSH3 #### [address] Erythrocyte distribution width (RBC) [Ratio] 16.1 % High 11.9-15.3 [facility] Comment on above: Performed By: #### C BC, LACTIC, HS TROP, HEPATIC, BMP, LIPASE, BHOB, T4F, TSH3 #### [place] [address] [place] Hematocrit (Bld) [Volume fraction] 37.3 % Normal 34.0-46.4 [facility] Comment on above: Performed By: #### C BC, LACTIC, HS TROP, HEPATIC, BMP, LIPASE, BHOB, T4F, TSH3 #### [facility] [address] Hemoglobin (Bld) [Mass/Vol] 11.7 g/dL Low 11.8-15.4 [facility] Comment on above: Performed By: #### C BC, LACTIC, HS TROP, HEPATIC, BMP, LIPASE, BHOB, T4F, TSH3 #### [address] Lymphocytes (Bld) [#/Vol] 1.5 10*3/uL Normal 1.00-4.8 [facility] Comment on above: Performed By: #### C BC, LACTIC, HS TROP, HEPATIC, BMP, LIPASE, BHOB, T4F, TSH3 #### [address] Lymphocytes/100 WBC (Bld) 9.1 % Normal . [facility] Comment on above: Performed By: #### C BC, LACTIC, HS TROP, HEPATIC, BMP, LIPASE, BHOB, T4F, TSH3 #### [address] MCH (RBC) [Entitic mass] 27.4 pg Normal 24.7-34.3 [facility] Comment on above: Performed By: #### C BC, LACTIC, HS TROP, HEPATIC, BMP, LIPASE, BHOB, T4F, TSH3 #### [address] MCV (RBC) [Entitic vol] 87.3 fL Normal 80-100 [facility] Comment on above: Performed By: #### C BC, LACTIC, HS TROP, HEPATIC, BMP, LIPASE, BHOB, T4F, TSH3 #### [address] Mean Corpuscular HGB Conc 31.3 g/dL Low 32.0-35.0 [facility] Comment on above: Performed By: #### C BC, LACTIC, HS TROP, HEPATIC, BMP, LIPASE, BHOB, T4F, TSH3 #### [facility] [address] Monocytes (Bld) [#/Vol] 1.4 10*3/uL High 0.0-0.8 [facility] Comment on above: Performed By: #### C BC, LACTIC, HS TROP, HEPATIC, BMP, LIPASE, BHOB, T4F, TSH3 #### [facility] [address] Monocytes/100 WBC (Bld) 8.6 % Normal . [facility] Comment on above: Performed By: #### C BC, LACTIC, HS TROP, HEPATIC, BMP, LIPASE, BHOB, T4F, TSH3 #### [address] Neutrophils (Bld) [#/Vol] 13.2 10*3/uL High 1.8-7.7 [facility] Comment on above: Performed By: #### C BC, LACTIC, HS TROP, HEPATIC, BMP, LIPASE, BHOB, T4F, TSH3 #### [address] Neutrophils/100 WBC (Bld) 81.9 % Normal . [facility] Comment on above: Performed By: #### C BC, LACTIC, HS TROP, HEPATIC, BMP, LIPASE, BHOB, T4F, TSH3 #### [address] Nucleated RBC/100 WBC (Bld) [Ratio] 0.0 % Normal 0-0.5 [facility] Comment on above: Performed By: #### C BC, LACTIC, HS TROP, HEPATIC, BMP, LIPASE, BHOB, T4F, TSH3 #### [address] Platelet mean volume (Bld) [Entitic vol] 7.9 fL Normal 6.3-10.7 [facility] Comment on above: Performed By: #### C BC, LACTIC, HS TROP, HEPATIC, BMP, LIPASE, BHOB, T4F, TSH3 #### [address] Platelets (Bld) [#/Vol] 317 10*3/uL Normal 150-450 [facility] Comment on above: Performed By: #### C BC, LACTIC, HS TROP, HEPATIC, BMP, LIPASE, BHOB, T4F, TSH3 #### [address] RBC (Bld) [#/Vol] 4.27 10*6/uL Normal 3.60-5.00 [facility] Comment on above: Performed By: #### C BC, LACTIC, HS TROP, HEPATIC, BMP, LIPASE, BHOB, T4F, TSH3 #### [address] WBC (Bld) [#/Vol] 16.1 10*3/uL High 4.5-11.0 [facility] Comment on above: Performed By: #### C BC, LACTIC, HS TROP, HEPATIC, BMP, LIPASE, BHOB, T4F, TSH3 #### [address] Dipstick and Microscopicon 0 09-01-2021 Bacteria,Urine None Seen Normal None Seen [facility] Comment on above: Order Comment: Name Collection Type:: Straight Catheter Performed By: #### C BC, BMP #### [address] Hyaline Casts,Urine 20-49 High 0-1 [facility] Comment on above: Order Comment: Name Collection Type:: Straight Catheter Performed By: #### C BC, BMP #### [address] Other Casts,Urine None Seen Normal None Seen [facility] Comment on above: Order Comment: Name Collection Type:: Straight Catheter Performed By: #### C BC, BMP #### [address] RBC,Urine 3-4 Normal 0-4 [facility] Comment on above: Order Comment: Name Collection Type:: Straight Catheter Performed By: #### C BC, BMP #### [facility] [address] [place] [address] [place] Renal Epithelial Cells,Urine None Seen Normal 0-1 [facility] Comment on above: Order Comment: Name Collection Type:: Straight Catheter Performed By: #### C BC, BMP #### [facility] [address] [place] [address] [place] Squamous Epithelial Cell,Urine 20-30 High 0-2 [facility] Comment on above: Order Comment: Name Collection Type:: Straight Catheter Performed By: #### C BC, BMP #### [facility] [address] [place] [address] [place] WBC,Urine 10-19 High 0-4 [facility] Comment on above: Order Comment: Name Collection Type:: Straight Catheter Performed By: #### C BC, BMP #### [facility] [address] [place] [address] Yeast,Urine None Seen Normal None Seen [facility] Comment on above: Order Comment: Name Collection Type:: Straight Catheter Result Comment: PERF ORMED BY: [place] [address] PATHOLOGIST [employer] HEMANT CHÁVEZ M.D. Performed By: #### C BC, BMP #### [address] ECG 12 lead ECGon 09-01-2021 ECG 12 lead ECG [facility] [place] [address] [place] [address] Electrocardiograph Report Signed Patient: Jeanmarie Garcia MR#: [id number] 757 : 1950 Acct:[id number] Age/Sex: 71 / F ADM Date: 09/01/21 Loc: Room: [address] [place] [address] Type: DIS IN Attending Dr: Martin Arevalo [...] 470 ms Confirmed by Delon Bahena DO ([id number]) on 09/01/2021 7:47:06 PM Referred By: Electronically Signed By:Delon Bahena DO Transcribed By: MUS Signed By Delon Bahena DO 09/01 [facility] Free T4 (Free Thyroxine)on 0 09-01-2021 Free T4 [Mass/Vol] 0.76 ng/dL Normal 0.61-1.12 [facility] Comment on above: Performed By: #### G LULS #### Point of Care testing , Glucose Poct Glucometerson 0 09-01-2021 Commemt1 Glu2: Cleaned Meter [facility] Comment on above: Result Comment: PERF ORMED BY: [facility] [address] [place] [address] PATHOLOGIST [employer] HEMANT CHÁVEZ M.D. Performed By: #### G LULS #### Point of Care testing , Glucose [Mass/Vol] 128 mg/dL Normal [facility] Comment on above: Result Comment: [facility] Glucose Reference Range is dependent on time and content of last meal. Glucose of more than 200 mg/dL in a nonstressed, ambulatory subject supports the diagnosis of Diabetes Mellitus. Performed By: #### G LULS #### Point of Care testing , Hepatic Panelon 09-01-2021 Albumin [Mass/Vol] 2.8 g/dL Low 3.2-5.5 [facility] Comment on above: Performed By: #### G LULS #### Point of Care testing , Albumin/Globulin [Mass ratio] 0.5 {ratio} [facility] Comment on above: Performed By: #### G LULS #### Point of Care testing , ALP [Catalytic activity/Vol] 88 U/L Normal 32-92 [facility] Comment on above: Performed By: #### G LULS #### Point of Care testing , ALT [Catalytic activity/Vol] 16 U/L Normal 10-60 [facility] Comment on above: Performed By: #### G STEVIELS #### Point of Care testing , AST [Catalytic activity/Vol] 30 U/L Normal 10-42 [facility] Comment on above: Performed By: #### G STEVIELS #### Point of Care testing , Bilirubin [Mass/Vol] 1.2 mg/dL Normal 0.3-1.2 [facility] Comment on above: Performed By: #### G STEVIELS #### Point of Care testing , Bilirubin,Indirect 1.0 mg/dL Normal [facility] Comment on above: Performed By: #### G STEVIELS #### Point of Care testing , Bilirubin.indirect [Mass/Vol] 0.2 mg/dL Normal 0.0-0.4 [facility] Comment on above: Performed By: #### G WILLEM #### Point of Care testing , Globulin (S) [Mass/Vol] 5.1 g/dL Normal [facility] Comment on above: Performed By: #### G STEVIELS #### Point of Care testing , Protein [Mass/Vol] 7.9 g/dL Normal 6.1-7.9 [facility] Comment on above: Performed By: #### G STEVIELS #### Point of Care testing , Lactic Acidon 09-01-2021 Lactate [Moles/Vol] 1.5 mmol/L Normal 0.5-2.2 [facility] Comment on above: Result Comment: PERF ORMED BY: [facility] [address] [place] [address] PATHOLOGIST [employer] HEMANT CHÁVEZ M.D. Performed By: #### C BC, LACTIC, HS TROP, HEPATIC, BMP, LIPASE, BHOB, T4F, TSH3 #### [facility] [address] Lipaseon 09-01-2021 Lipase [Catalytic activity/Vol] 25.0 U/L Normal 22-51 [facility] Comment on above: Performed By: #### G LULS #### Point of Care testing , Magnesiumon 09-01-2021 Magnesium [Mass/Vol] 2.4 mg/dL Normal 1.6-2.6 [facility] Comment on above: Order Comment: Comme nt add on to prior labs Result Comment: PERF ORMED BY: [place] [address] PATHOLOGIST [employer] HEMANT CHÁVEZ M.D. Performed By: #### C BC, LACTIC, HS TROP, HEPATIC, BMP, LIPASE, BHOB, T4F, TSH3 #### [address] Holley Ag Negativeon 09-02-19 Holley Ag Negative Negative Normal Negative [facility] Comment on above: Result Comment: This is a duplicate Holley SARS Antigen (JW) result to be used for statistical tracking purpose only. PERFORMED BY: [place] [address] PATHOLOGIST [employer] HEMANT CHÁVEZ M.D. Performed By: #### G LULS #### Point of Care testing , Thyroid Stimulating Hormoneo n 09-01-2021 TSH Qn 3.09 m[IU]/L Normal 0.45-5.33 [facility] Comment on above: Result Comment: PERF ORMED BY: [place] [address] PATHOLOGIST [employer] HEMANT CHÁVEZ M.D. Performed By: #### G LULS #### Point of Care testing , Troponin I High Sensitivityo n 09-01-2021 Troponin I High Sensitivity 29 pg/mL High 0-15 [facility] Comment on above: Result Comment: PERF ORMED BY: [place] [address] PATHOLOGIST [employer] HEMANT CHÁVEZ M.D. Performed By: #### G LULS #### Point of Care testing , Troponin I High Sensitivity 25 pg/mL High 0-15 [facility] Comment on above: Result Comment: PERF ORMED BY: [place] [address] PATHOLOGIST [employer] HEMANT CHÁVEZ M.D. Performed By: #### C BC, LACTIC, HS TROP, HEPATIC, BMP, LIPASE, BHOB, T4F, TSH3 #### [facility] [address] [place] [address] [place] Urinalysison 09-01-2021 Appearance (U) Cloudy Critically abnormal Clear [facility] Comment on above: Order Comment: Name Collection Type:: Straight Catheter Performed By: #### C BC, BMP #### [address] Bilirubin,Urine Negative Normal Negative [facility] Comment on above: Order Comment: Name Collection Type:: Straight Catheter Performed By: #### C BC, BMP #### [address] Color (U) Yellow Normal Yellow [facility] Comment on above: Order Comment: Name Collection Type:: Straight Catheter Performed By: #### C BC, BMP #### [address] Glucose Ql (U) Normal Normal Normal [facility] Comment on above: Order Comment: Name Collection Type:: Straight Catheter Performed By: #### C BC, BMP #### [address] Ketones Ql (U) 1+ High Negative [facility] Comment on above: Order Comment: Name Collection Type:: Straight Catheter Performed By: #### C BC, BMP #### [facility] [address] [place] [address] Leukocyte esterase Test strip Ql (U) Negative Normal Negative [facility] Comment on above: Order Comment: Name Collection Type:: Straight Catheter Performed By: #### C BC, BMP #### [facility] [address] [place] [address] [place] Nitrite,Urine Negative Normal Negative [facility] Comment on above: Order Comment: Name Collection Type:: Straight Catheter Performed By: #### C BC, BMP #### [address] [place] [address] [place] Occult Blood,Urine 2+ High Negative [facility] Comment on above: Order Comment: Name Collection Type:: Straight Catheter Result Comment: PERF ORMED BY: [place] [address] PATHOLOGIST [employer] HEMANT CHÁVEZ M.D. Performed By: #### C BC, BMP #### [address] pH (U) 5.5 [pH] Normal 5.0-9.0 [facility] Comment on above: Order Comment: Name Collection Type:: Straight Catheter Performed By: #### C BC, BMP #### [address] Protein (U) [Mass/Vol] 300 mg/dL High Negative [facility] Comment on above: Order Comment: Name Collection Type:: Straight Catheter Performed By: #### C BC, BMP #### [address] Specificy [place],Urine 1.026 Normal 1.001-1.030 [facility] Comment on above: Order Comment: Name Collection Type:: Straight Catheter Performed By: #### C BC, BMP #### [address] Urobilinogen,Urine Normal Normal Normal [facility] Comment on above: Order Comment: Name Collection Type:: Straight Catheter Performed By: #### C BC, BMP #### [address] Urine Cultureon 09-01-2021 Bacteria identified Cx Nom (U) ORGANISM: Klebsiella pneumoniae (O:KLEPNE) [place] Count 75,000 Aerobic MANAV Charge (NUC86) --- [...] RESISTANT TO ALL B-LACTAM DRUGS. PERFORMED BY: [place] [address] PATHOLOGIST [employer] HEMANT CHÁVEZ M.D. Normal [facility] Comment on above: Performed By: #### C BC, BMP #### [facility] [address] Venous Blood Gason CO2 [Moles/Vol] 23.6 mmol/L Low 24.0-29.0 [facility] Comment on above: Performed By: #### G LULS #### Point of Care testing , HCO3 (Bld) [Moles/Vol] 22.6 mmol/L Low 23.0-29.0 [facility] Comment on above: Performed By: #### G LULS #### Point of Care testing , Respiratory Critical Normal [facility] Comment on above: Result Comment: Crit ical Value called on: 09/01/2021 at 12:46 PERFORMED BY: [place] [address] PATHOLOGIST [employer] HEMANT CHÁVEZ M.D. Performed By: #### G LULS #### Point of Care testing , VBG Base Excess -0.6 mmol/L Normal -3.0-3.0 [facility] Comment on above: Performed By: #### G LULS #### Point of Care testing , VBG Draw Site Venous Normal [facility] Comment on above: Performed By: #### G LULS #### Point of Care testing , VBG Frac Inspired O2 21 % Normal [facility] Comment on above: Performed By: #### G LULS #### Point of Care testing , VBG O2 Content 7.7 mmol/L Normal 6.6-9.7 [facility] Comment on above: Performed By: #### G LULS #### Point of Care testing , VBG Oxygen Saturation 97.1 % Off scale high 73.0-76.0 [facility] Comment on above: Performed By: #### G LULS #### Point of Care testing , VBG PCO2 32.8 mm[Hg] Low 38.0-50.0 [facility] Comment on above: Performed By: #### G LULS #### Point of Care testing , VBG PH Venous PH 7.46 High 7.32-7.43 [facility] Comment on above: Performed By: #### G LULS #### Point of Care testing , VBG PO2 88.4 mm[Hg] Off scale high 35.0-45.0 [facility] Comment on above: Performed By: #### G LULS #### Point of Care testing , XR chest 1V portableon 09-01 XR chest 1[place] [address] XRay Report Signed Patient: Jeanmarie Garcia MR#: [id number] 757 : 1950 Acct:[id number] Age/Sex: 71 / F ADM Date: 09/01/21 [...] Gerson White M.D.09/01/2021 12:02 PM Dictation Location: [facility] Transcribed By: [facility] 09/01/21 1202 Dictated By: Gerson White DO 09/01/21 1200 Signed By: 09/01/21 1202 Normal [facility] Glucose Poct Glucometerson 0 08-25-2021 Commemt1 Glu2: Cleaned Meter [facility] Comment on above: Result Comment: PERF ORMED BY: [place] [address] PATHOLOGIST [employer] HEMANT CHÁVEZ M.D. Performed By: #### C BC, LACTIC, HS TROP, HEPATIC, BMP, LIPASE, BHOB, T4F, TSH3 #### [address] Glucose [Mass/Vol] 143 mg/dL Normal [facility] Comment on above: Result Comment: [facility] Glucose Reference Range is dependent on time and content of last meal. Glucose of more than 200 mg/dL in a nonstressed, ambulatory subject supports the diagnosis of Diabetes Mellitus. Performed By: #### C BC, LACTIC, HS TROP, HEPATIC, BMP, LIPASE, BHOB, T4F, TSH3 #### [address] Basic Metabolic Panelon 05- Calcium [Mass/Vol] 8.4 mg/dL Normal 8.2-10.2 [facility] Comment on above: Performed By: #### C BC, LACTIC, HS TROP, HEPATIC, BMP, LIPASE, BHOB, T4F, TSH3 #### [place] [id number] [facility] Chloride [Moles/Vol] 102 mmol/L Normal 95-114 [facility] Comment on above: Performed By: #### C BC, LACTIC, HS TROP, HEPATIC, BMP, LIPASE, BHOB, T4F, TSH3 #### [facility] [address] CO2 [Moles/Vol] 26.5 mmol/L Normal 22.0-30.0 [facility] Comment on above: Performed By: #### C BC, LACTIC, HS TROP, HEPATIC, BMP, LIPASE, BHOB, T4F, TSH3 #### [facility] [address] Creatinine [Mass/Vol] 1.03 mg/dL Normal 0.44-1.03 [facility] Comment on above: Performed By: #### C BC, LACTIC, HS TROP, HEPATIC, BMP, LIPASE, BHOB, T4F, TSH3 #### [facility] [address] Creatinine Clr Calc Pharmacy 59.91 [facility] Comment on above: Performed By: #### C BC, LACTIC, HS TROP, HEPATIC, BMP, LIPASE, BHOB, T4F, TSH3 #### [facility] [address] Estimated GFR ( Roseline > 60 [facility] Comment on above: Result Comment: GFR estimated reference range: According to KDOQI guidelines, <60 ml/min/1.73m2 is sufficient to diagnose a patient with chronic kidney disease. Performed By: #### C BC, LACTIC, HS TROP, HEPATIC, BMP, LIPASE, BHOB, T4F, TSH3 #### [facility] [address] Estimated GFR (Non- Am 53 [facility] Comment on above: Performed By: #### C BC, LACTIC, HS TROP, HEPATIC, BMP, LIPASE, BHOB, T4F, TSH3 #### [facility] [address] Glucose [Mass/Vol] 148 mg/dL High 70-100 [facility] Comment on above: Result Comment: [place] Glucose Reference Range is dependent on time and content of last meal. Glucose of more than 200 mg/dL in a nonstressed, ambulatory subject supports the diagnosis of Diabetes Mellitus. ADA recommended reference range Performed By: #### C BC, LACTIC, HS TROP, HEPATIC, BMP, LIPASE, BHOB, T4F, TSH3 #### [address] Potassium [Moles/Vol] 3.8 mmol/L Normal 3.5-5.1 [facility] Comment on above: Performed By: #### C BC, LACTIC, HS TROP, HEPATIC, BMP, LIPASE, BHOB, T4F, TSH3 #### [address] Sodium [Moles/Vol] 137 mmol/L Normal 136-146 [facility] Comment on above: Performed By: #### C BC, LACTIC, HS TROP, HEPATIC, BMP, LIPASE, BHOB, T4F, TSH3 #### [address] Urea nitrogen [Mass/Vol] 12 mg/dL Normal 9-23 [facility] Comment on above: Performed By: #### C BC, LACTIC, HS TROP, HEPATIC, BMP, LIPASE, BHOB, T4F, TSH3 #### [address] Glucose Poct Glucometerson 0 08-24-2021 Commemt1 Glu2: Cleaned Meter Normal [facility] Comment on above: Result Comment: PERF ORMED BY: [place] [address] PATHOLOGIST [employer] HEMANT CHÁVEZ M.D. Performed By: #### C BC, LACTIC, HS TROP, HEPATIC, BMP, LIPASE, BHOB, T4F, TSH3 #### [address] Glucose [Mass/Vol] 239 mg/dL Normal [facility] Comment on above: Result Comment: [place] Glucose Reference Range is dependent on time and content of last meal. Glucose of more than 200 mg/dL in a nonstressed, ambulatory subject supports the diagnosis of Diabetes Mellitus. Performed By: #### C BC, LACTIC, HS TROP, HEPATIC, BMP, LIPASE, BHOB, T4F, TSH3 #### [place] [address] [place] Commemt1 Glu2: Cleaned Meter Normal [facility] Comment on above: Result Comment: PERF ORMED BY: [place] [address] PATHOLOGIST [employer] HEMANT CHÁVEZ M.D. Performed By: #### C BC, BMP #### [address] Glucose [Mass/Vol] 191 mg/dL Normal [facility] Comment on above: Result Comment: [place] om Glucose Reference Range is dependent on time and content of last meal. Glucose of more than 200 mg/dL in a nonstressed, ambulatory subject supports the diagnosis of Diabetes Mellitus. Performed By: #### C BC, BMP #### [address] Glucose [Mass/Vol] 149 mg/dL Normal [facility] Comment on above: Result Comment: [place] om Glucose Reference Range is dependent on time and content of last meal. Glucose of more than 200 mg/dL in a nonstressed, ambulatory subject supports the diagnosis of Diabetes Mellitus. PERFORMED BY: [place] [address] PATHOLOGIST [employer] HEMANT CHÁVEZ M.D. Performed By: #### C BC, BMP #### [address] Glucose [Mass/Vol] 177 mg/dL Normal [facility] Comment on above: Result Comment: [place] om Glucose Reference Range is dependent on time and content of last meal. Glucose of more than 200 mg/dL in a nonstressed, ambulatory subject supports the diagnosis of Diabetes Mellitus. PERFORMED BY: [place] [address] PATHOLOGIST [employer] HEMANT CHÁVEZ M.D. Performed By: #### C BC, LACTIC, HS TROP, HEPATIC, BMP, LIPASE, BHOB, T4F, TSH3 #### [address] HCV Ab with Rfx to NAAon HCV Ab with Reflex to Qual NAILA <0.1 Normal 0.0-0.9 [facility] Comment on above: Order Comment: Which is this, the Source or the Person with the Exposure?: SOURCE Source Medical Record: [id number] Exposed Performed By: #### C BC, BMP #### [address] Interpretation Normal . [facility] Comment on above: Order Comment: Which is this, the Source or the Person with the Exposure?: SOURCE Source Medical Record: [id number] Exposed Result Comment: Nega tive Not infected with HCV, unless recent infection is suspected or other evidence exists to indicate HCV infection. Performed at: - [facility] [id number] Cardiac Cath Lab Technologist: Spencer Mcdaniels PhD, Phone: [phone] PERFORMED BY: [place] [address] PATHOLOGIST [employer] HEMANT CHÁVEZ M.D. Performed By: #### C BC, BMP #### [address] HIV Screen (On License Of [facility])on HIV Screen (On License Of [facility]) Non-Reactive Normal Nonreactive [facility] Comment on above: Order Comment: Which is this, the Source or the Person with the Exposure?: SOURCE Source Medical Record: [id number] Exposed Result Comment: PERF ORMED BY: [place] [address] PATHOLOGIST [employer] HEMANT CHÁVEZ M.D. Performed By: #### C BC, BMP #### [address] Hemogram CBC Without Diffon 08-24-2021 Erythrocyte distribution width (RBC) [Ratio] 15.5 % High 11.9-15.3 [facility] Comment on above: Performed By: #### C BC, LACTIC, HS TROP, HEPATIC, BMP, LIPASE, BHOB, T4F, TSH3 #### [address] Hematocrit (Bld) [Volume fraction] 35.5 % Normal 34.0-46.4 [facility] Comment on above: Performed By: #### C BC, LACTIC, HS TROP, HEPATIC, BMP, LIPASE, BHOB, T4F, TSH3 #### [address] Hemoglobin (Bld) [Mass/Vol] 11.3 g/dL Low 11.8-15.4 [facility] Comment on above: Performed By: #### C BC, LACTIC, HS TROP, HEPATIC, BMP, LIPASE, BHOB, T4F, TSH3 #### [address] MCH (RBC) [Entitic mass] 28.0 pg Normal 24.7-34.3 [facility] Comment on above: Performed By: #### C BC, LACTIC, HS TROP, HEPATIC, BMP, LIPASE, BHOB, T4F, TSH3 #### [address] MCV (RBC) [Entitic vol] 87.7 fL Normal 80-100 [facility] Comment on above: Performed By: #### C BC, LACTIC, HS TROP, HEPATIC, BMP, LIPASE, BHOB, T4F, TSH3 #### [address] Mean Corpuscular HGB Conc 31.9 g/dL Low 32.0-35.0 [facility] Comment on above: Performed By: #### C BC, LACTIC, HS TROP, HEPATIC, BMP, LIPASE, BHOB, T4F, TSH3 #### [address] Platelet mean volume (Bld) [Entitic vol] 7.7 fL Normal 6.3-10.7 [facility] Comment on above: Result Comment: PERF ORMED BY: [place] [address] PATHOLOGIST [employer] HEMANT CHÁVEZ M.D. Performed By: #### C BC, LACTIC, HS TROP, HEPATIC, BMP, LIPASE, BHOB, T4F, TSH3 #### [facility] [address] Platelets (Bld) [#/Vol] 229 10*3/uL Normal 150-450 [facility] Comment on above: Performed By: #### C BC, LACTIC, HS TROP, HEPATIC, BMP, LIPASE, BHOB, T4F, TSH3 #### [address] RBC (Bld) [#/Vol] 4.05 10*6/uL Normal 3.60-5.00 [facility] Comment on above: Performed By: #### C BC, LACTIC, HS TROP, HEPATIC, BMP, LIPASE, BHOB, T4F, TSH3 #### [address] WBC (Bld) [#/Vol] 9.4 10*3/uL Normal 3.8-11.6 [facility] Comment on above: Performed By: #### C BC, LACTIC, HS TROP, HEPATIC, BMP, LIPASE, BHOB, T4F, TSH3 #### [address] Hepatic Panelon 08-24-2021 Albumin [Mass/Vol] 3.2 g/dL Normal 3.2-5.5 [facility] Comment on above: Performed By: #### C BC, LACTIC, HS TROP, HEPATIC, BMP, LIPASE, BHOB, T4F, TSH3 #### [address] Albumin/Globulin [Mass ratio] 0.8 {ratio} Normal [facility] Comment on above: Performed By: #### C BC, LACTIC, HS TROP, HEPATIC, BMP, LIPASE, BHOB, T4F, TSH3 #### [address] ALP [Catalytic activity/Vol] 99 U/L High 32-92 [facility] Comment on above: Performed By: #### C BC, LACTIC, HS TROP, HEPATIC, BMP, LIPASE, BHOB, T4F, TSH3 #### [address] ALT [Catalytic activity/Vol] 10 U/L Normal 10-60 [facility] Comment on above: Performed By: #### C BC, LACTIC, HS TROP, HEPATIC, BMP, LIPASE, BHOB, T4F, TSH3 #### [address] AST [Catalytic activity/Vol] 13 U/L Normal 10-42 [facility] Comment on above: Performed By: #### C BC, LACTIC, HS TROP, HEPATIC, BMP, LIPASE, BHOB, T4F, TSH3 #### [address] Bilirubin [Mass/Vol] 0.5 mg/dL Normal 0.3-1.2 [facility] Comment on above: Performed By: #### C BC, LACTIC, HS TROP, HEPATIC, BMP, LIPASE, BHOB, T4F, TSH3 #### [address] Bilirubin,Indirect Not performed Normal [facility] Comment on above: Performed By: #### C BC, LACTIC, HS TROP, HEPATIC, BMP, LIPASE, BHOB, T4F, TSH3 #### [address] Bilirubin.indirect [Mass/Vol] mg/dL Normal 0.0-0.4 [facility] Comment on above: Performed By: #### C BC, LACTIC, HS TROP, HEPATIC, BMP, LIPASE, BHOB, T4F, TSH3 #### [address] Globulin (S) [Mass/Vol] 3.8 g/dL Normal [facility] Comment on above: Performed By: #### C BC, LACTIC, HS TROP, HEPATIC, BMP, LIPASE, BHOB, T4F, TSH3 #### [address] Protein [Mass/Vol] 7.0 g/dL Normal 6.1-7.9 [facility] Comment on above: Performed By: #### C BC, LACTIC, HS TROP, HEPATIC, BMP, LIPASE, BHOB, T4F, TSH3 #### [facility] [address] Hepatitis B Surface Antibody on 08-24-2021 Hepatitis B Surface Antibody Non-Reactive Normal . [facility] Comment on above: Order Comment: Which is this, the Source or the Person with the Exposure?: SOURCE Source Medical Record: [id number] Exposed Result Comment: Non Reactive: Inconsistent with immunity, less than 10 mIU/mL Reactive: Consistent with immunity, greater than 9.9 mIU/mL Performed By: #### C BC, BMP #### [address] Hepatitis B Surface Antigeno n 08-24-2021 HBsAg Screen Negative Normal Negative [facility] Comment on above: Order Comment: Which is this, the Source or the Person with the Exposure?: SOURCE Source Medical Record: [id number] Exposed Result Comment: Perf ormed at: - [facility] [id number] Cardiac Cath Lab Technologist: Spencer Mcdaniels PhD, Phone: [phone] Performed By: #### C BC, BMP #### [address] Eric 08-24-2021 L -- ---- Specimen: [id number] Received: 08/24/21 Status: JOSE Andrew Num: [id number] Spec Type: Surgical Subm Dr: Isael Castro MD Tissues: A Gallbladder (GALLBLADDER) Procedures: HE Stain, Gross/Micro L3 ---- Patient Age/Sex Location Account Attending Physician ---- Jeanmarie Garcia 71/F 4N [id number] Isael Castro MD ---- SPEC NUM: [id number] RECD: 08/24/21 STATUS: JOSE ANDREW NUM: [id number] [place]: 08/24/21- [facility] DR: Isael Castro MD ENTERED: 08/24/21 [facility] DR: LUCIAN TYPE: Surgical DEPT: S [...] lesions or periductal lymph nodes are identified. Cooperer sections are submitted in one cassette labeled A1. (SM/JS) Microscopic Description One glass slide with H E stained material has been examined. The microscopic findings support the above pathologic diagnosis. [id number] ---- ---- Specimen: [id number] Received: 08/24/21 Status: JOSE Memo Num: [id number] Spec Type: Surgical Subm Dr: Isael Castro MD Tissues: A Gallbladder (GALLBLADDER) Procedures: HE Stain, Gross/Micro L3 ---- Patient: GarciaJeanmarie M [id number] (Continued) ---- Signed (signature on file) Hemant Chávez MD 08/25/21 182 Normal [facility] Lipaseon 08-24-2021 Lipase [Catalytic activity/Vol] 27.0 U/L Normal 22-51 [facility] Comment on above: Result Comment: PERF ORMED BY: [place] [address] PATHOLOGIST [employer] WASHER HEMANT CHÁVEZ M.D. Performed By: #### C BC, LACTIC, HS TROP, HEPATIC, BMP, LIPASE, BHOB, T4F, TSH3 #### [address] Basic Metabolic Panelon 08-07 Calcium [Mass/Vol] 8.4 mg/dL Normal 8.2-10.2 [facility] Comment on above: Performed By: #### C BC, BMP #### [address] Chloride [Moles/Vol] 104 mmol/L Normal 95-114 [facility] Comment on above: Performed By: #### C BC, BMP #### [address] CO2 [Moles/Vol] 24.8 mmol/L Normal 22.0-30.0 [facility] Comment on above: Performed By: #### C BC, BMP #### [address] Creatinine [Mass/Vol] 0.96 mg/dL Normal 0.44-1.03 [facility] Comment on above: Performed By: #### C BC, BMP #### [address] Creatinine Clr Calc Pharmacy 64.28 Normal On License Of [facility] Comment on above: Performed By: #### C BC, BMP #### [facility] [address] Estimated GFR ( Roseline > 60 [facility] Comment on above: Result Comment: GFR estimated reference range: According to KDOQI guidelines, <60 ml/min/1.73m2 is sufficient to diagnose a patient with chronic kidney disease. Performed By: #### C BC, BMP #### [facility] [address] Estimated GFR (Non- Am 58 [facility] Comment on above: Performed By: #### C BC, BMP #### [facility] [address] Glucose [Mass/Vol] 101 mg/dL High 70-100 [facility] Comment on above: Result Comment: [place] om Glucose Reference Range is dependent on time and content of last meal. Glucose of more than 200 mg/dL in a nonstressed, ambulatory subject supports the diagnosis of Diabetes Mellitus. ADA recommended reference range Performed By: #### C BC, BMP #### [facility] [address] Potassium [Moles/Vol] 3.5 mmol/L Normal 3.5-5.1 [facility] Comment on above: Performed By: #### C BC, BMP #### [facility] [address] [place] [address] [place] Sodium [Moles/Vol] 137 mmol/L Normal 136-146 [facility] Comment on above: Performed By: #### C BC, BMP #### [facility] [address] [place] [id number] [facility] Urea nitrogen [Mass/Vol] 10 mg/dL Normal 9-23 [facility] Comment on above: Performed By: #### C BC, BMP #### [address] COVID-19 Antigenon 2 COVID-19 Antigen Healthcare [...] developed and its performance characteristic determined by [employer] and validated at [facility]. This test has not been FDA cleared [...] for SARS Antigen by JW PERFORMED BY: [place] [address] PATHOLOGIST [employer] WASHER HEMANT CHÁVEZ M.D. Normal [facility] Comment on above: Performed By: #### C , BMP #### [address] COVID-19 [facility] 08-23-2021 SARS-CoV-2 (COVID-19) RNA NAILA+probe Ql (Unsp spec) Negative Normal Negative [facility] Comment on above: Order Comment: Healt hcare Worker?: N Result Comment: Testing for SARS-CoV-2 by RT-PCR This test was developed and its performance characteristics determined by [employer]) and validated at the [facility]. This test has not been FDA cleared [...] is terminated or revoked sooner. PERFORMED BY: [place] [address] PATHOLOGIST [employer] WASHER HEMANT HCÁVEZ M.D. Performed By: #### C BC, BMP #### [address] Complete Blood Count Auto Di ffon 08-23-2021 Basophils (Bld) [#/Vol] 0.0 10*3/uL Normal 0.0-0.2 [facility] Comment on above: Result Comment: PERF ORMED BY: [place] [address] PATHOLOGIST [employer] WASHER HEMANT CHÁVEZ M.D. Performed By: #### C BC, BMP #### [address] Basophils/100 WBC (Bld) 0.4 % Normal . [facility] Comment on above: Performed By: #### C BC, BMP #### [address] Eosinophils (Bld) [#/Vol] 0.5 10*3/uL High 0.0-0.45 [facility] Comment on above: Performed By: #### C BC, BMP #### [address] Eosinophils/100 WBC (Bld) 5.4 % Normal . [facility] Comment on above: Performed By: #### C BC, BMP #### [address] Erythrocyte distribution width (RBC) [Ratio] 15.5 % High 11.9-15.3 [facility] Comment on above: Performed By: #### C BC, BMP #### [address] Hematocrit (Bld) [Volume fraction] 37.7 % Normal 34.0-46.4 [facility] Comment on above: Performed By: #### C BC, BMP #### [address] Hemoglobin (Bld) [Mass/Vol] 12.2 g/dL Normal 11.8-15.4 [facility] Comment on above: Performed By: #### C BC, BMP #### [address] Lymphocytes (Bld) [#/Vol] 2.0 10*3/uL Normal 1.00-4.8 [facility] Comment on above: Performed By: #### C BC, BMP #### [address] Lymphocytes/100 WBC (Bld) 21.9 % Normal . [facility] Comment on above: Performed By: #### C BC, BMP #### [address] MCH (RBC) [Entitic mass] 28.1 pg Normal 24.7-34.3 [facility] Comment on above: Performed By: #### C BC, BMP #### [address] MCV (RBC) [Entitic vol] 86.9 fL Normal 80-100 [facility] Comment on above: Performed By: #### C BC, BMP #### [address] Mean Corpuscular HGB Conc 32.3 g/dL Normal 32.0-35.0 [facility] Comment on above: Performed By: #### C BC, BMP #### [facility] [address] [place] [address] [place] Monocytes (Bld) [#/Vol] 0.6 10*3/uL Normal 0.0-0.8 [facility] Comment on above: Performed By: #### C BC, BMP #### [facility] [address] [place] [address] [place] Monocytes/100 WBC (Bld) 6.2 % Normal . [facility] Comment on above: Performed By: #### C BC, BMP #### [facility] [address] Neutrophils (Bld) [#/Vol] 5.9 10*3/uL Normal 1.8-7.7 [facility] Comment on above: Performed By: #### C BC, BMP #### [place] [address] [place] Neutrophils/100 WBC (Bld) 66.1 % Normal . [facility] Comment on above: Performed By: #### C BC, BMP #### [facility] [address] [place] [address] [place] Nucleated RBC/100 WBC (Bld) [Ratio] 0.0 % Normal 0-0.5 [facility] Comment on above: Performed By: #### C BC, BMP #### [facility] [address] [place] [address] [place] Platelet mean volume (Bld) [Entitic vol] 7.7 fL Normal 6.3-10.7 [facility] Comment on above: Performed By: #### C BC, BMP #### [facility] [address] [place] [address] [place] Platelets (Bld) [#/Vol] 261 10*3/uL Normal 150-450 [facility] Comment on above: Performed By: #### C BC, BMP #### [facility] [address] [place] [address] [place] RBC (Bld) [#/Vol] 4.33 10*6/uL Normal 3.60-5.00 [facility] Comment on above: Performed By: #### C BC, BMP #### [facility] [address] WBC (Bld) [#/Vol] 8.9 10*3/uL Normal 4.5-11.0 [facility] Comment on above: Performed By: #### C BC, BMP #### [place] [address] [place] Dipstick and Microscopicon 0 08-23-2021 Appearance (U) Cloudy Critically abnormal Clear [facility] Comment on above: Order Comment: Name Collection Type:: Clean-Voided Midstream Performed By: #### C BC, LACTIC, HS TROP, HEPATIC, BMP, LIPASE, BHOB, T4F, TSH3 #### [address] Bacteria,Urine 2+ High None Seen [facility] Comment on above: Order Comment: Name Collection Type:: Clean-Voided Midstream Performed By: #### C BC, LACTIC, HS TROP, HEPATIC, BMP, LIPASE, BHOB, T4F, TSH3 #### [facility] [address] [place] [address] [place] Bilirubin,Urine Negative Normal Negative [facility] Comment on above: Order Comment: Name Collection Type:: Clean-Voided Midstream Performed By: #### C BC, LACTIC, HS TROP, HEPATIC, BMP, LIPASE, BHOB, T4F, TSH3 #### [address] Color (U) Yellow Normal Yellow [facility] Comment on above: Order Comment: Name Collection Type:: Clean-Voided Midstream Performed By: #### C BC, LACTIC, HS TROP, HEPATIC, BMP, LIPASE, BHOB, T4F, TSH3 #### [address] Glucose Ql (U) Normal Normal Normal [facility] Comment on above: Order Comment: Name Collection Type:: Clean-Voided Midstream Performed By: #### C BC, LACTIC, HS TROP, HEPATIC, BMP, LIPASE, BHOB, T4F, TSH3 #### [address] Hyaline Casts,Urine 0-8 Normal 0-8 [facility] Comment on above: Order Comment: Name Collection Type:: Clean-Voided Midstream Result Comment: PERF ORMED BY: [place] [address] PATHOLOGIST [employer] WASHER HEMANT CHÁVEZ M.D. Performed By: #### C BC, LACTIC, HS TROP, HEPATIC, BMP, LIPASE, BHOB, T4F, TSH3 #### [address] Ketones Ql (U) Negative Normal Negative [facility] Comment on above: Order Comment: Name Collection Type:: Clean-Voided Midstream Performed By: #### C BC, LACTIC, HS TROP, HEPATIC, BMP, LIPASE, BHOB, T4F, TSH3 #### [address] Leukocyte esterase Test strip Ql (U) 3+ High Negative [facility] Comment on above: Order Comment: Name Collection Type:: Clean-Voided Midstream Performed By: #### C BC, LACTIC, HS TROP, HEPATIC, BMP, LIPASE, BHOB, T4F, TSH3 #### [address] Nitrite,Urine Negative Normal Negative [facility] Comment on above: Order Comment: Name Collection Type:: Clean-Voided Midstream Performed By: #### C BC, LACTIC, HS TROP, HEPATIC, BMP, LIPASE, BHOB, T4F, TSH3 #### [address] Occult Blood,Urine Negative Normal Negative [facility] Comment on above: Order Comment: Name Collection Type:: Clean-Voided Midstream Result Comment: PERF ORMED BY: [place] [address] PATHOLOGIST [employer] W[employer] HEMANT CHÁVEZ M.D. Performed By: #### C BC, LACTIC, HS TROP, HEPATIC, BMP, LIPASE, BHOB, T4F, TSH3 #### [address] pH (U) 5.5 [pH] Normal 5.0-9.0 [facility] Comment on above: Order Comment: Name Collection Type:: Clean-Voided Midstream Performed By: #### C BC, LACTIC, HS TROP, HEPATIC, BMP, LIPASE, BHOB, T4F, TSH3 #### [address] Protein (U) [Mass/Vol] 100 mg/dL High Negative [facility] Comment on above: Order Comment: Name Collection Type:: Clean-Voided Midstream Performed By: #### C BC, LACTIC, HS TROP, HEPATIC, BMP, LIPASE, BHOB, T4F, TSH3 #### [address] RBC,Urine 1-2 Normal 0-4 [facility] Comment on above: Order Comment: Name Collection Type:: Clean-Voided Midstream Performed By: #### C BC, LACTIC, HS TROP, HEPATIC, BMP, LIPASE, BHOB, T4F, TSH3 #### [address] Specificy [place],Urine 1.021 Normal 1.001-1.030 [facility] Comment on above: Order Comment: Name Collection Type:: Clean-Voided Midstream Performed By: #### C BC, LACTIC, HS TROP, HEPATIC, BMP, LIPASE, BHOB, T4F, TSH3 #### [address] Squamous Epithelial Cell,Urine 20-30 High 0-2 [facility] Comment on above: Order Comment: Name Collection Type:: Clean-Voided Midstream Performed By: #### C BC, LACTIC, HS TROP, HEPATIC, BMP, LIPASE, BHOB, T4F, TSH3 #### [address] Urobilinogen,Urine Normal Normal Normal [facility] Comment on above: Order Comment: Name Collection Type:: Clean-Voided Midstream Performed By: #### C BC, LACTIC, HS TROP, HEPATIC, BMP, LIPASE, BHOB, T4F, TSH3 #### [facility] [address] [place] [address] WBC,Urine 50-100 High 0-4 [facility] Comment on above: Order Comment: Name Collection Type:: Clean-Voided Midstream Performed By: #### C BC, LACTIC, HS TROP, HEPATIC, BMP, LIPASE, BHOB, T4F, TSH3 #### [facility] [address] [place] [address] ECG 12 lead ECGon 08-23-2021 ECG 12 lead ECG [facility] Main [place] [address] [place] [address] Electrocardiograph Report Signed Patient: Jeanmarie Garcia MR#: [id number] : 1950 Acct:[id number] Age/Sex: 71 / F ADM Date: 08/23/21 Loc: [place] Room: Type: [facility] Attending Dr: Isael Castro MD Ordering Provider: [...] Signed By Soy Bradshaw DO 1549 Normal [facility] Glucose Poct Glucometerson 0 08-23-2021 Commemt1 Glu2: Cleaned Meter Normal [facility] Comment on above: Result Comment: PERF ORMED BY: [address] [place] [address] PATHOLOGIST [employer] W[employer] HEMANT CHÁVEZ M.D. Performed By: #### C BC, LACTIC, HS TROP, HEPATIC, BMP, LIPASE, BHOB, T4F, TSH3 #### [facility] [address] Glucose [Mass/Vol] 197 mg/dL Normal [facility] Comment on above: Result Comment: [place] om Glucose Reference Range is dependent on time and content of last meal. Glucose of more than 200 mg/dL in a nonstressed, ambulatory subject supports the diagnosis of Diabetes Mellitus. Performed By: #### C BC, LACTIC, HS TROP, HEPATIC, BMP, LIPASE, BHOB, T4F, TSH3 #### [address] Commemt1 Glu2: Cleaned Meter Normal [facility] Comment on above: Result Comment: PERF ORMED BY: [place] [address] PATHOLOGIST [employer] W[employer]ER HEMANT CHÁVEZ M.D. Performed By: #### C BC, LACTIC, HS TROP, HEPATIC, BMP, LIPASE, BHOB, T4F, TSH3 #### [address] Glucose [Mass/Vol] 145 mg/dL Normal [facility] Comment on above: Result Comment: [place] Glucose Reference Range is dependent on time and content of last meal. Glucose of more than 200 mg/dL in a nonstressed, ambulatory subject supports the diagnosis of Diabetes Mellitus. Performed By: #### C BC, LACTIC, HS TROP, HEPATIC, BMP, LIPASE, BHOB, T4F, TSH3 #### [address] Hepatic Panelon 08-23-2021 Albumin [Mass/Vol] 3.1 g/dL Low 3.2-5.5 [facility] Comment on above: Performed By: #### C BC, BMP #### [address] Albumin/Globulin [Mass ratio] 0.8 {ratio} Normal [facility] Comment on above: Performed By: #### C BC, BMP #### [facility] [address] ALP [Catalytic activity/Vol] 91 U/L Normal 32-92 [facility] Comment on above: Performed By: #### C BC, BMP #### [facility] [address] ALT [Catalytic activity/Vol] 12 U/L Normal 10-60 [facility] Comment on above: Performed By: #### C BC, BMP #### [facility] [address] AST [Catalytic activity/Vol] 16 U/L Normal 10-42 [facility] Comment on above: Performed By: #### C BC, BMP #### [facility] [address] [place] [address] Bilirubin [Mass/Vol] 0.5 mg/dL Normal 0.3-1.2 [facility] Comment on above: Performed By: #### C BC, BMP #### [facility] [address] [place] [address] Bilirubin,Indirect Not performed Normal [facility] Comment on above: Performed By: #### C BC, BMP #### [address] Bilirubin.indirect [Mass/Vol] mg/dL Normal 0.0-0.4 [facility] Comment on above: Performed By: #### C BC, BMP #### [facility] [address] [place] [address] Globulin (S) [Mass/Vol] 3.8 g/dL Normal [facility] Comment on above: Performed By: #### C BC, BMP #### [address] Protein [Mass/Vol] 6.9 g/dL Normal 6.1-7.9 [facility] Comment on above: Performed By: #### C BC, BMP #### [facility] [address] [place] [address] [place] Lipaseon 05-17-2022 Lipase [Catalytic activity/Vol] 31.0 U/L Normal 22-51 [facility] Comment on above: Result Comment: PERF ORMED BY: [place] [address] PATHOLOGIST [employer] W[employer] HEMANT CHÁVEZ M.D. Performed By: #### C BC, BMP #### [address] Hol[place] Ag Negativeon 08-24-19 [place] Ag Negative Negative Normal Negative [facility] Comment on above: Result Comment: This is a duplicate [place] SARS Antigen (JW) result to be used for statistical tracking purpose only. PERFORMED BY: [place] [address] PATHOLOGIST [employer] WASHER HEMANT CHÁVEZ M.D. Performed By: #### C BC, BMP #### [address] US gall bladderon 08-23-2021 US gall bladder [facility] Main [place] [address] [place] [address] Ultrasound Report Signed Patient: Jeanmarie Garcia MR#: [id number] [id number] : 1950 Acct:[id number] Age/Sex: 71 / F ADM Date: 08/23/21 Loc: ER Room: Type: [employer] Attending Dr: Ordering Provider: Soy Bradshaw DO [...] Glasgow Jr., D.OMichaelle08/23/2021 9:59 AM Dictation Location: [place] [address] Tech: Lolis Owen Transcribed By: [facility] 08/23/21958 Dictated By: Gerald Glasgow Jr, DO 08/23/21 0954 Signed By: 08/23/21958 [facility] Urine Cultureon 08-23-2021 Bacteria identified Cx Nom (U) >100,000 colonies/ml mixed bacterial skin contaminants 2 Days PERFORMED BY: [place] [address] PATHOLOGIST [employer] WASHER HEMANT CHÁVEZ M.D. [facility] Comment on above: Performed By: #### C BC, LACTIC, HS TROP, HEPATIC, BMP, LIPASE, BHOB, T4F, TSH3 #### [address] Coding Summaryon 05-28-2019 Coding Summary CODING DATE: 05/28/2019 [facility] STATUS: Home PAYOR: Medicare ADMIT DX: REASON [...] Mony Vines Date Saved: 05/28/2019 03:02 pm [facility] MAGR Intraoperative Recordon 05-15-2019 MAGR Intraoperative Record MAGR Intra-Op Record Summary Primary Physician: Magdi Mclaughlin MD Finalized Date/Time: 05/15/19 13:43:13 Pt. Name: JEANMARIE GARCIA/Sex: 1950 FEMALE Med Rec #: [id number] Physician: Magdi Mclaughlin MD Financial #: [id number] Pt. Type: D Room/Bed: / Admit/Disch: 05/13/19 [...] Role Performed Surgeon - Primary Anesthesiologist of Sales Representative [employer] Record Time In 05/13/19 07:42:00 05/13/19 07:42:00 05/13/19 07:42:00 Time Out 05/13/19 09:07:00 05/13/19 09:07:00 05/13/19 09:07:00 Procedure Hernia Repair Ventral Hernia Repair Ventral Hernia Repair Ventral Last Modified By: Anuja Farias RN, Barbara RN Long, Barbara RN 05/13/19 09:08:03 05/13/19 09:08:03 05/13/19 09:08:03 Entry 4 Entry 5 Case Attendee Irving LOOMIS, Dana Dai CST Role Performed Scrub Personnel Chemical Compounder Helper Time In 05/13/19 07:42:00 05/13/19 07:42:00 Time [...] Date/Time By: Size 3 CM / 3.2 Ethernet Network Architect BARD Lot Number [id number] Expiration Date 07/04/20 Implant Usage Data Site Abdomen Quantity 1 Pulp Mill Team Leader Sterility Outcome Met (O.30) Yes Last Modified [...] 05/15/19 13:42 MHBLONG Modify Pick List Normal [facility] Coding Summaryon 05-14-2019 Coding Summary CODING DATE: 05/14/2019 [facility] STATUS: Home PAYOR: Medicare MC APC DESCRIPTION 5341 Abdominal/Peritoneal/B iliary and Related Procedures ADMIT DX: REASON FOR VISIT DX: K43.9 Ventral hernia without obstruction or gangrene FINAL DX: PRINCIPAL: K43.9 Ventral hernia without obstruction or gangrene SECONDARY: E11.9 Type 2 diabetes mellitus without complications Z79.4 roasterman (current) use of insulin PYMT PROC APC STAT DESCRIPTION DOCTOR NAME DATE 88865 5341 J1 Repair initial Magdi Mclaughlin MD 05/13/2019 incisional or ventral hernia; reducible 74737 Implantation of mesh or Magdi Mclaughlin MD [...] Sarai Lynn Date Saved: 05/14/2019 02:01 pm [facility] Consent Formson 05-14-2019 Consent Forms [id number] 20 [id number]#1.[address] [place] [address] Medication Managementon Medication Management [id number]#1.[address] [place] [address] Outside Recordson 05-14-2019 Outside Records [id number] 20 [id number]#1.[address] [place] [address] Provider Orderson 05-14-2019 Provider Orders [id number] 20 [id number]#1.[address] [place] [address] Telemetry Stripson 0 Telemetry Strips [id number] 20 [id number]#1.[address] [place] [address] Anesthesia Noteon 05-13-2019 Anesthesia Note Patient: JEANMARIE [...] on: 05/13/2019 09:57 EST] Kevin Khoury MD [facility] Anesthesia Note Patient: JEANMARIE GARCIA Age: 68 [...] (chronic obstructive pulmonary disease) / SNOMED CT 39896305 / Confirmed Development delay / SNOMED CT 744790267 / Confirmed Diabetes / SNOMED CT 852177481 / Confirmed GERD (gastroesophageal reflux disease) / SNOMED CT 950354525 / Confirmed Hyponatremia / SNOMED CT 314555243 / Confirmed Hypothyroidism / SNOMED CT 22870959 / Confirmed Schizophrenia / SNOMED CT 24925571 / Confirmed Speech problem / SNOMED CT 788272388 / Confirmed Resolved: Depression / SNOMED CT 83439815 Histories Family History: History is unknown. Procedure history: Stomach ([id number]). Comments: 11/19/2018 12:55 Marshal Hoyos RN pt [...] Oriented. Review / Management Laboratory Results Plan [place] [employer]hesi[employer]#(ASA ) physical status classification: [...] on: 05/13/2019 08:13 EST] Kevin Khoury MD [facility] History and Physicalon 05-13 History and Physical [id number] .[id number] [facility] Inpatient Patient Summaryon 05-13-2019 Inpatient [place] [address] Patient Discharge Instructions Name: JEANMARIE GARCIA : 1950 Patient Address: [address] [place] [address] Primary Care Provider: Name: GERALD FUENTES After you are discharged if you find you have any questions, please, call [phone] ext [phone] to speak to a nurse. Discharge Diagnosis: Ventral incisional hernia Prescription Information: If you have been given a prescription for narcotics, seek immediate medical attention if you have any difficulty breathing or any sudden status changes such as confusion and sleepiness. If you or anyone you know is experiencing suicidal thoughts, mental health, alcohol and/or drug addiction problems; contact the [facility] 30/10 Crisis Hotline -Text 4HOPE to 106514. If you received any narcotics, sedation, or [...] business decisions or sign any legal documents [facility] would like to thank you for allowing us to assist you with your healthcare needs. The following includes patient education materials and information regarding your injury/illness. JEANMARIE GARCIA KARMA has been given the following list of follow-up instructions, prescriptions, and patient education materials: Follow-up Instructions With: Address: When: Magdi Mclaughlin [address] [place] [address], [address] [place], [place] [id number] Business (1) In 2 weeks 05/27/2019 With: Address: When: GERALD FUENTES [address] [place] [address] [facility] (1) Medications During the course of your visit, your medication list was updated with the most current information. The details of those changes are reflected below: New Medications Printed Prescriptions acetaminophen-hydrocod one ([place] 5 mg-325 mg oral tablet) 1 tab(s) [...] needed as needed for pain. acetaminophen-hydrocod one ([place] 5 mg-325 mg oral tablet) 1 tab(s) [...] the next day or two. ? Take xzcc-gfv-wdjetjo and prescription medicines only as told by [...] 03/12/2013 Document Revised: 05/08/2018 Document Reviewed: 10/15/2017 [employer] Patient Education ? 2019 [employer] Viruses or Bacteria What?s got you [...] for Disease Control and Prevention [facility] PACU Record MAGR PACU Record Summary Primary Physician: Magdi Mclaughlin MD Finalized Date/Time: 05/13/19 10:21:28 Pt. Name: JEANMARIE GARCIA KARMA Montgomery./Sex: 1950 FEMALE Med Rec #: [id number] Physician: Magdi Mclaughlin MD Financial #: [id number] Pt. Type: D Room/Bed: / Admit/Disch: 05/13/19 05:53:00 - Institution: PACU Case Times MAGR Entry 1 In PACU I 05/13/19 09:10:00 Discharge from PACU 05/13/19 09:49:00 I Last Modified By: Yolanda Robbins RN 05/13/19 10:21:25 Finalized By: Yolanda Robbins RN Document Signatures Signed By: Yolanda Robbins RN 05/13/19 10:21 [facility] 05-13-2019 MAGR Postoperative Record MAGR Phase II Record Summary Primary Physician: Magdi Mclaughlin MD Finalized Date/Time: 05/13/19 12:19:23 Pt. Name: JEANMARIE GARCIA KARMA Montgomery./Sex: 1950 FEMALE Med Rec #: [id number] Physician: Magdi Mclaughlin MD Financial #: [id number] Pt. Type: D Room/Bed: / Admit/Disch: 05/13/19 05:53:00 - Institution: [facility] II Case Times MAGR Pre-Care Text: Patient [...] Signed By: Denae Najera RN 05/13/19 12:19 [facility] MAGR Preoperative Recordon 0 05-13-2019 MAGR Preoperative Record MAGR Pre-Op Record Summary Primary Physician: Magdi Mclaughlin MD Finalized Date/Time: 05/13/19 08:06:19 Pt. Name: JEANMARIE GARCIA /Sex: 1950 FEMALE Med Rec #: [id number] Physician: Magdi Mclaughlin MD Financial #: [id number] Pt. Type: D Room/Bed: / Admit/Disch: 05/13/19 [...] Signed By: Anuja Farias RN 05/13/19 08:06 [facility] Operative Report - Surgeon/P rico 05-13-2019 Operative [...] The fascia was closed transversely using interrupted seyfhm-qp-[id number] 0 Vicryl sutures. The sutures included the [...] discharged today. Magdi Mclaughlin M.D. JOB #: [id number] bk CC: Gerald Fuentes D.O. [Electronically Signed on: 05/13/2019 11:19 EST] Magdi Mclaughlin MD [Verified on: 05/13/2019 11:19 EST] Magdi Mclaughlin MD [Transcribed on: 05/13/2019 10:09 EST] [facility] Patient Handouton 05-13-2019 Patient Handout Gastroenterology [...] the next day or two. ? Take vglm-scd-pgqdemp and prescription medicines only as told by [...] 03/12/2013 Document Revised: 05/08/2018 Document Reviewed: 10/15/2017 [employer] Patient Education ? 2019 [email or web address]. [facility] Progress Note - Nurseon 02-0 3-2020 Progress Note - Nurse Pre-op call done, talked with caregiver @ [facility]. Instructed to have pt. here @ 05-13-2019, NPO after midnight-verbalized understanding. [Electronically Signed on: 05/12/2019 09:47 EST] Denae Najera RN [Verified on: 05/12/2019 09:47 EST] Denae Najera RN [facility] Coding Summaryon 05-08-2019 Coding Summary CODING DATE: 05/08/2019 [facility] STATUS: Home PAYOR: Medicare ADMIT DX: REASON [...] Deanna Whitman Date Saved: 05/08/2019 09:15 am [facility] Progress Note - Nurseon 04-11 Progress Note - Nurse Chart reviewed by Dr. Palacios and no new orders received. [Electronically Signed on: 05/08/2019 15:51 EST] Yolanda Soto RN [Verified on: 05/08/2019 15:51 EST] Yolanda Soto RN [facility] .Auto Diff 1on 05-07-2019 Auto [place] % 5 % Normal 1-12 [facility] Comment on above: Performed By: #### 1 [id number], [id number], [id number] #### [facility] (DEFAULT) [address] [place] [address] 37950 Baso Abs# 0.0 x10 Normal 0.0-0.2 [facility] Comment on above: Performed By: #### 1 [id number], 9012051, 85610989 #### [facility] (DEFAULT) [address] [place] [address] 93169 Basophils/100 WBC (Bld) 0.1 % Low 0.2-2.0 [facility] Comment on above: Performed By: #### 1 [id number], 9183033, [id number] #### [facility] (DEFAULT) [address] [place] [address] 93147 Eos Abs# 1.2 x10 High 0.0-0.4 [facility] Comment on above: Performed By: #### 1 [id number], 5885601, 51311840 #### [facility] (DEFAULT) [address] [place] [address] 65280 Eosinophils/100 WBC (Bld) 11.4 % High 0.9-4.0 [facility] Comment on above: Performed By: #### 1 [id number], 6181832, 62688871 #### [facility] (DEFAULT) [address] [place] [address] 71350 Lymphocytes (Bld) [#/Vol] 3.3 x10 High 1.3-2.9 [facility] Comment on above: Performed By: #### 1 [id number], 0230890, 49816458 #### [facility] (DEFAULT) [address] [place] [address] 50375 Lymphocytes/100 WBC (Bld) 31 % Normal 14-48 [facility] Comment on above: Performed By: #### 1 [id number], 1671790, 96645285 #### [facility] (DEFAULT) [address] [place] [address] 39727 [place] Abs# 0.6 x10 Normal 0.0-0.8 [facility] Comment on above: Performed By: #### 1 [id number], 2461552, 70634108 #### [facility] (DEFAULT) [address] [place] [address] 94999 Neut Abs# 5.7 x10 Normal 1.5-9.2 [facility] Comment on above: Performed By: #### 1 [id number], 9768183, 03035177 #### [facility] (DEFAULT) [address] [place] [address] Neutrophils/100 WBC (Bld) 53 % Normal 44-88 [facility] Comment on above: Performed By: #### 1 [id number], 7825627, 66520690 #### [facility] (DEFAULT) [address] [place] [address] Standardon 05-07-2019 eGFR Non AA >60 [facility] Comment on above: Performed By: #### 1 [id number], 2096554, 03155469 #### [facility] (DEFAULT) [address] [place] [address] eGFR AA >60 [facility] Comment on above: Result Comment: Circular Knitter Helper anna Kidney disease could be indicated at eGFRs of less than 60 ml/min/1.73m2. Kidney Failure is indicated at less than 15 ml/min/1.73m2 Performed By: #### 1 [id number], 5364506, 08608428 #### [facility] (DEFAULT) [address] [place] [address] 12233 Anion gap [Moles/Vol] 13.0 mmol/L Normal 5.0-19.0 [facility] Comment on above: Performed By: #### 1 [id number], 4534474, 55989447 #### [facility] (DEFAULT) [address] [place] [address] 39142 Calcium [Mass/Vol] 9.3 mg/dL Normal 8.9-10.3 [facility] Comment on above: Performed By: #### 1 [id number], 5761310, 94538477 #### [facility] (DEFAULT) [address] [place] [address] 36401 Chloride [Moles/Vol] 100 mmol/L Low 101-111 [facility] Comment on above: Performed By: #### 1 [id number], 3466296, 52310970 #### [facility] (DEFAULT) [address] [place] [address] 20093 CO2 [Moles/Vol] 29 mmol/L Normal 21-32 [facility] Comment on above: Performed By: #### 1 [id number], 0211597, 15305881 #### [facility] (DEFAULT) [address] [place] [address] 05480 Creatinine [Mass/Vol] 0.83 mg/dL Normal 0.60-1.30 [facility] Comment on above: Performed By: #### 1 [id number], 0673162, 38928689 #### [facility] (DEFAULT) [address] [place] [address] 56871 Glucose [Mass/Vol] 119.0 mg/dL High 74.0-118.0 [facility] Comment on above: Performed By: #### 1 [id number], 7594401, 99187828 #### [facility] (DEFAULT) [address] [place] [address] 13844 Osmolality [Osmolality] 280 mOsm/L [facility] Comment on above: Performed By: #### 1 [id number], 3443466, 86448209 #### [facility] (DEFAULT) [address] [place] [address] 78019 Potassium [Moles/Vol] 4.2 mmol/L Normal 3.6-5.1 [facility] Comment on above: Performed By: #### 1 [id number], 9656772, 11269871 #### [facility] (DEFAULT) [address] [place] [address] 05375 Sodium [Moles/Vol] 138.0 mmol/L Normal 136.0-144.0 [facility] Comment on above: Performed By: #### 1 [id number], 4856547, 58915962 #### [facility] (DEFAULT) [address] [place] [address] 76636 Urea nitrogen [Mass/Vol] 21 mg/dL Normal 8-26 [facility] Comment on above: Performed By: #### 1 [id number], 2869053, 92560520 #### [facility] (DEFAULT) [address] [place] [address] 75514 Urea nitrogen/Creatinine [Mass ratio] 25.0 mg/mg High 4.6-16.2 [facility] Comment on above: Performed By: #### 1 [id number], 0899264, 95495181 #### [facility] (DEFAULT) [address] [place] [address] CBC w/ Auto Diffon 0 Erythrocyte distribution width (RBC) [Ratio] 14.5 % Normal 11.5-15.0 [facility] Comment on above: Performed By: #### 7 602307, 13522176, [id number] #### [facility] (DEFAULT) [address] [place] [address] Hematocrit (Bld) [Volume fraction] 40.5 % High 33.7-40.4 [facility] Comment on above: Performed By: #### 7 447548, 68220376, [id number] #### [facility] (DEFAULT) [address] [place] [address] 95166 Hemoglobin (Bld) [Mass/Vol] 12.7 g/dL Normal 11.3-15.9 [facility] Comment on above: Performed By: #### 7 027110, 38934347, [id number] #### [facility] (DEFAULT) [address] [place] [address] 67037 Man Diff? Auto Normal [facility] Comment on above: Performed By: #### 7 627214, 92127987, [id number] #### [facility] (DEFAULT) [address] [place] [address] 38268 MCH (RBC) [Entitic mass] 28 pg Normal 24-34 [facility] Comment on above: Performed By: #### 7 880361, 57680320, [id number] #### [facility] (DEFAULT) [address] [place] [address] 48972 MCHC (RBC) [Mass/Vol] 31 g/dL Normal 26-37 [facility] Comment on above: Performed By: #### 7 455445, 15792789, [id number] #### [facility] (DEFAULT) [address] [place] [address] 73598 MCV (RBC) [Entitic vol] 91 fL Normal 81-100 [facility] Comment on above: Performed By: #### 7 684601, 48470203, [id number] #### [facility] (DEFAULT) [address] [place] [address] 44264 Platelet mean volume (Bld) [Entitic vol] 9.4 fL Normal 6.3-10.2 [facility] Comment on above: Performed By: #### 7 588995, 04862839, [id number] #### [facility] (DEFAULT) [address] [place] [address] 30860 Platelets (Bld) [#/Vol] 275 x10 Normal 138-427 [facility] Comment on above: Performed By: #### 7 819210, 66728211, [id number] #### [facility] (DEFAULT) [address] [place] [address] 13550 RBC (Bld) [#/Vol] 4.45 x10 Normal 3.70-5.30 [facility] Comment on above: Performed By: #### 7 076867, 94047520, [id number] #### [facility] (DEFAULT) [address] [place] [address] 45828 WBC (Bld) [#/Vol] 10.9 x10 High 3.5-10.5 [facility] Comment on above: Performed By: #### 7 213045, 90593149, 8810108574 #### [facility] (DEFAULT) [address] [place] [address] 82501 Patient Letteron 03-12-2019 Patient Letter [id number]#1.0 0OTGTIFF Normal [facility] Patient Letter [id number] 30 [id number]#1.0 0OTGTIFF Normal [facility] CARDIAC STRESS/REST INJE CTIONon 12-31-2018 [facility] CARDIAC STRESS/REST INJECTION Patient Name: JEANMARIE GARCIA STUDY: MYOCARDIAL PERFUSION STRESS TEST WITH LEXISCAN Performing facility: [facility], [address] [place] [address], [address], [place] [address] [facility] Provider: Sharon Floyd MD, [facility] PCP: Dr. Milton FUENTES SURGEON: DR. Debbi GARCIA Supervising provider: Rui Ford DO, [facility] INDICATION: DM NICM Pre-operative risk assessment for ventral Hernia scheduled at [facility], DATE PENDING HISTORY: Gender: F; Age: 68 y/o ; Height: 162.56 cm; Weight: 96.9837027 kg. High Cholesterol; Diabetes; HTN; COPD; NICM Currently smoking. COMPARISON: No comparison. ACCESSION NUMBER(S): [id number]; [id number]; [id number] ORDERING CLINICIAN: KEVIN FLOYD TECHNIQUE: ONE DAY [...] comparison. Electronically signed by: BERTHA GONZALEZ MD [facility] Coding Summaryon 12-30-2018 Coding Summary CODING DATE: 12/30/2018 [facility] STATUS: Home PAYOR: Medicare ADMIT DX: REASON [...] Mony Vines Date Saved: 12/30/2018 03:13 pm [facility] Outside Recordson 12-25-2018 Outside Records [id number]#1. 00OTGTIFF [facility] Progress Note - Nurseon 11-07 Progress Note - Nurse Chart reviewed by Dr. Palacios no new orders received. [Electronically Signed on: 11/21/2018 14:21 EDT] Yolanda Soto RN [Verified on: 11/21/2018 14:21 EDT] Yolanda Soto RN [facility] Coding Summaryon 11-20-2018 Coding Summary CODING DATE: 11/20/2018 [facility] STATUS: Home PAYOR: Medicare APC DESCRIPTION [id number] [...] Justin Date Saved: 11/20/2018 11:29 am Normal [facility] .Auto Diff 1on 11-19-2018 Auto [place] % 5 % Normal 1-12 [facility] Comment on above: Performed By: #### 1 [id number], 3026772, 69502762 #### [facility] (DEFAULT) [address] [place] [address] 22699 Baso Abs# 0.0 x10 Normal 0.0-0.2 [facility] Comment on above: Performed By: #### 1 [id number], 3343403, 22499247 #### [facility] (DEFAULT) [address] [place] [address] 44658 Basophils/100 WBC (Bld) 0.1 % Low 0.2-2.0 [facility] Comment on above: Performed By: #### 1 [id number], 1696566, 31550120 #### [facility] (DEFAULT) [address] [place] [address] 99098 Eos Abs# 1.3 x10 High 0.0-0.4 [facility] Comment on above: Performed By: #### 1 845597112, 1052869, 62949819 #### [facility] (DEFAULT) [address] [place] [address] 28732 Eosinophils/100 WBC (Bld) 11.7 % High 0.9-4.0 [facility] Comment on above: Performed By: #### 1 [id number], 4289946, 93860160 #### [facility] (DEFAULT) [address] [place] [address] 06211 Lymphocytes (Bld) [#/Vol] 2.9 x10 Normal 1.3-2.9 [facility] Comment on above: Performed By: #### 1 [id number], 7270416, 46607977 #### [facility] (DEFAULT) [address] [place] [address] 17751 Lymphocytes/100 WBC (Bld) 26 % Normal 14-48 [facility] Comment on above: Performed By: #### 1 410238890, 4739938, 76252690 #### [facility] (DEFAULT) [address] [place] [address] [place] Abs# 0.5 x10 Normal 0.0-0.8 [facility] Comment on above: Performed By: #### 1 [id number], 9838643, 79524202 #### [facility] (DEFAULT) [address] [place] [address] Neut Abs# 6.4 x10 Normal 1.5-9.2 [facility] Comment on above: Performed By: #### 1 000385431, 4673014, 70289896 #### [facility] (DEFAULT) [address] [place] [address] Neutrophils/100 WBC (Bld) 58 % Normal 44-88 [facility] Comment on above: Performed By: #### 1 366861560, 6302839, 09314211 #### [facility] (DEFAULT) [address] [place] [address] Standardon 11-19-2018 eGFR Non AA 60 mL/min/1.73m2 [facility] Comment on above: Performed By: #### 1 [id number], 3017373, 60284906 #### [facility] (DEFAULT) [address] [place] [address] eGFR AA >60 [facility] Comment on above: Result Comment: Circular Knitter Helper anna Kidney disease could be indicated at eGFRs of less than 60 ml/min/1.73m2. Kidney Failure is indicated at less than 15 ml/min/1.73m2 Performed By: #### 1 [id number], 8517269, 08583898 #### [facility] (DEFAULT) [address] [place] [address] Anion gap [Moles/Vol] 15.0 mmol/L Normal 5.0-19.0 [facility] Comment on above: Performed By: #### 1 [id number], 9824500, 28271446 #### [facility] (DEFAULT) [address] [place] [address] Calcium [Mass/Vol] 9.5 mg/dL Normal 8.9-10.3 [facility] Comment on above: Performed By: #### 1 [id number], 5905101, 58539676 #### [facility] (DEFAULT) [address] [place] [address] 87249 Chloride [Moles/Vol] 101 mmol/L Normal 101-111 [facility] Comment on above: Performed By: #### 1 [id number], 8646636, 10993170 #### [facility] (DEFAULT) [address] [place] [address] 65833 CO2 [Moles/Vol] 26 mmol/L Normal 21-32 [facility] Comment on above: Performed By: #### 1 978227841, 2179933, 48761136 #### [facility] (DEFAULT) [address] [place] [address] 09653 Creatinine [Mass/Vol] 0.93 mg/dL Normal 0.60-1.30 [facility] Comment on above: Performed By: #### 1 355510298, 6703894, 70870058 #### [facility] (DEFAULT) [address] [place] [address] 70698 Glucose [Mass/Vol] 128.0 mg/dL High 74.0-118.0 [facility] Comment on above: Performed By: #### 1 [id number], 4082525, 11717407 #### [facility] (DEFAULT) [address] [place] [address] 86453 Osmolality [Osmolality] 281 mOsm/L [facility] Comment on above: Performed By: #### 1 [id number], 5221917, 20307067 #### [facility] (DEFAULT) [address] [place] [address] 16688 Potassium [Moles/Vol] 4.2 mmol/L Normal 3.6-5.1 [facility] Comment on above: Performed By: #### 1 878124429, 7633777, 45377785 #### [facility] (DEFAULT) [address] [place] [address] 07552 Sodium [Moles/Vol] 138.0 mmol/L Normal 136.0-144.0 [facility] Comment on above: Performed By: #### 1 [id number], 9044552, 53667792 #### [facility] (DEFAULT) [address] [place] [address] 05576 Urea nitrogen [Mass/Vol] 22 mg/dL Normal 8-26 [facility] Comment on above: Performed By: #### 1 [id number], 8241345, 81874293 #### [facility] (DEFAULT) [address] [place] [address] Urea nitrogen/Creatinine [Mass ratio] 24.0 mg/mg High 4.6-16.2 [facility] Comment on above: Performed By: #### 1 [id number], 0138159, 43919571 #### [facility] (DEFAULT) [address] [place] [address] CBC w/ Auto Diffon 9 Erythrocyte distribution width (RBC) [Ratio] 14.9 % Normal 11.5-15.0 [facility] Comment on above: Performed By: #### 1 [id number], 9464991, 07000080 #### [facility] (DEFAULT) [address] [place] [address] Hematocrit (Bld) [Volume fraction] 39.4 % Normal 33.7-40.4 [facility] Comment on above: Performed By: #### 1 [id number], 8115857, 92309879 #### [facility] (DEFAULT) [address] [place] [address] 86684 Hemoglobin (Bld) [Mass/Vol] 12.4 g/dL Normal 11.3-15.9 [facility] Comment on above: Performed By: #### 1 542384796, 5034331, 48514153 #### [facility] (DEFAULT) [address] [place] [address] Man Diff? Auto Normal [facility] Comment on above: Performed By: #### 1 [id number], 7079300, 74498952 #### [facility] (DEFAULT) [address] [place] [address] 94126 MCH (RBC) [Entitic mass] 29 pg Normal 24-34 [facility] Comment on above: Performed By: #### 1 285645542, 5434159, 00386682 #### [facility] (DEFAULT) [address] [place] [address] 13647 MCHC (RBC) [Mass/Vol] 32 g/dL Normal 26-37 [facility] Comment on above: Performed By: #### 1 176623758, 5513056, 56029551 #### [facility] (DEFAULT) [address] [place] [address] 57417 MCV (RBC) [Entitic vol] 91 fL Normal 81-100 [facility] Comment on above: Performed By: #### 1 392391568, 0074850, 01646331 #### [facility] (DEFAULT) [address] [place] [address] 76674 Platelet mean volume (Bld) [Entitic vol] 9.3 fL Normal 6.3-10.2 [facility] Comment on above: Performed By: #### 1 038675385, 6478828, 15348885 #### [facility] (DEFAULT) [address] [place] [address] 78573 Platelets (Bld) [#/Vol] 278 x10 Normal 138-427 [facility] Comment on above: Performed By: #### 1 [id number], 6585237, 04469936 #### [facility] (DEFAULT) [address] [place] [address] 31958 RBC (Bld) [#/Vol] 4.34 x10 Normal 3.70-5.30 [facility] Comment on above: Performed By: #### 1 [id number], 8800415, 16892084 #### [facility] (DEFAULT) [address] [place] [address] 86334 WBC (Bld) [#/Vol] 11.2 x10 High 3.5-10.5 [facility] Comment on above: Performed By: #### 1 [id number], 5430846, 62236559 #### [facility] (DEFAULT) [address] [place] [address] 07005 PROGRESSon 07-19-2017 PROGRESS HNO ID: [id number]: Patrick ([place]) GrantService: (none)Author Type: Physician AssistantType: Progress NotesFiled: 07/20/2017 10:27 AMNote Text: [facility] NOTENAME: ELMA GARCIA NO.: [id number] OF SERVICE: 07/19/2017Irina Summers OF : August [...] SYSTEMS: Please see above.MEDICATIONS: Reviewed in the custodial record.CODE STATUS: Full code.PHYSICAL EXAMINATION: Revealed middle-aged [...] supportive care.DICTATED BY: AIDEE López/AcusisD: 018 JOB# [id number]:Irina Caalectronically Signed by Celina Judd PA-C at 07/20/2017 10:16:25 Normal [facility] PROGRESSon 06-07-2017 PROGRESS HNO ID: [id number]: Fatmata Sharmaervice: (none)Author Type: PhysicianType: Progress NotesFiled: 06/08/2017 4:57 PMNote Text: [facility] NOTENAME: PATRICIO GARCIA NO.: [id number] OF SERVICE: 06/07/2017[facility] 1950Shtari is sitting up in [...] regimen.DICTATED BY: Fatmata Casey MDIAE/AcusisD:06/08/19 18 JOB# [id number]:[facility] Centerectronicsil[facility] Signed by Fatmata Casey MD at 06/08/2017 16:46:12 Normal [facility] PROGRESSon 05-17-2017 PROGRESS HNO ID: [id number]: Celina Dorantes) GrantService: (none)Author Type: Physician AssistantType: Progress NotesFiled: 05/18/2017 10:17 AMNote Text: [facility] NOTENAME: PATRICIO GARCIA NO.: [id number] OF SERVICE: 05/17/2017[facility] : May 7, 1951CHIEF COMPLAINT: Followup diabetes.SUBJECTIVE FINDINGS: The patient was seen in her room at [facility] followup visit. She reported that she was doing well in [facility]. She had been admitted here approximately 1 month ago. Shecontinued to smoke on occasion, although she stated she was trying toquit. Nurses reported her to be eating and drinking well. There was noevidence of seizure activity. She reported that her appetite was goodand bowels regular.REVIEW OF SYSTEMS: Please see above.FAMILY/SOCIAL HISTORY: Unchanged.MEDICATIONS: Reviewed in the custodial record. Code status is fullcode.PHYSICAL EXAMINATION: Temperature [...] well controlled since she has been in [facility].2. Seizure disorder. No recent seizure [...] the facility.DICTATED BY: AIDEE López/AcusisD: 018 JOB# [id number]:[facility] Signed by Celina Judd PA-C at 05/18/2017 10:09:27 [facility] PROGRESSon 05-08-2017 PROGRESS HNO ID: [id number]: Fatmata Flanagan ErenService: (none)Author Type: PhysicianType: Progress NotesFiled: 05/09/2017 3:47 PMNote Text: [facility] NOTENAME: PATRICIO GARCIA NO.: [id number] OF SERVICE: 05/08/2017Irina Summers OF : 1950New Patient History and PhysicalHISTORY OF PRESENT ILLNESS: The patient is a 66-year-old female who wasadmitted to us directly from her longterm with a diagnosis of seizuredisorder, diabetes mellitus type 2, remote history of DVT, previousgoiter resection with hypothyroidism, history of MRDD, history ofhyponatremia, ongoing smoking history, and hyperlipidemia. Sheapparently did not like living at her community longterm and istherefore now being admitted to our [...] closely.DICTATED BY: Fatmata Casey MDIAE/AcusisD:05/08/19 18 JOB# [id number]:[place] [facility] Vital Signs Date Time Vital Sign Value Performing Clinician Janes hayes 09-17-2023 11:50-0400 Body temperature 98.2 [degF] Keysha Reynoso MD Work Phone: [facility] 09-17-2023 11:50-0400 Diastolic blood pressure 81 mm[Hg] Keys[facility] Reynoso MD [facility] 09-17-2023 11:50-0400 Heart rate 76 /min Keysha Reynoso MD Work Phone: [facility] 09-17-2023 11:50-0400 Respiratory rate 18 /min Keysha Reynoso MD [facility]: [facility] 09-17-2023 11:50-0400 SaO2% (BldA) [Mass fraction] 91 % Keysha Reynoso MD Work Phone: [facility] 09-17-2023 11:50-0400 Systolic blood pressure 138 mm[Hg] Keysha Reynoso MD Work Phone: [facility] 09-17-2023 03:00-0400 Body mass index (BMI) [Ratio] 33.34 kg/m2 Keysha Reynoso MD Work Phone: [facility] 09-17-2023 03:00-0400 Body weight 88.1 kg Keysha Reynoso MD Work Phone: [facility] 09-16-2023 10:58-0400 Body height 162.6 cm Keysha Reynoso MD Work Phone: [facility] Encounters Encounter Date Encounter Type Care Provider Facility Start: 05-06-2024 End: 05-06-2024 ambulatory [facility] 2] Facility:[facility] Start: 09-18-2023 End: 09-18-2023 [facility] Start: 09-15-2023 End: 09-18-2023 Emergency department patient visit FRANKO WHITE [facility] Start: 09-15-2023 End: 09-17-2023 [facility] Start: 09-15-2023 End: 09-17-2023 Emergency department patient visit Franko White Work Phone: [address] Comment on above: Foreign body in bron chus, initial encounter (Primary Dx) Start: 09-15-2023 End: 09-18-2023 Emergency department patient visit GERALD BARBER [facility] Start: 08-30-2023 ambulatory DELMA NUNN Facil ity:[facility] Start: 08-30-2023 End: 08-30-2023 ambulatory DELMA NUNN Facility:[facility] Start: 05-31-2023 End: 06-01-2023 ambulatory DELMA NUNN Facility:[facility] Start: 05-31-2023 End: 05-31-2023 Patient encounter procedure DELMA NUNN [facility] Start: 02-14-2022 End: 02-14-2022 ambulatory Austin Head Facility:[facility] Start: 10-25-2021 ambulatory Gerald Fuentes Facilit y:[facility] Start: 09-01-2021 End: 09-06-2021 Evaluation and management of inpatient Services [facility] Facility:[facility] Start: 08-26-2021 End: 08-26-2021 ambulatory Cyala Fitt Other [facility] Other Start: 08-26-2021 Telephone encounter Cayla Fitt [facility] Start: 08-24-2021 End: 08-24-2021 ambulatory Services [facility] Facility:[facility] Start: 08-23-2021 End: 08-25-2021 ambulatory Services [facility] Facility:[facility] Start: 05-11-2021 End: 05-11-2021 ambulatory Cayla Fitt Other [facility] Other Start: 05-11-2021 Telephone encounter Cayla Fitt [facility] Start: 04-20-2021 End: 04-20-2021 ambulatory Cayla Fitt Other [facility] Other Start: 04-20-2021 Telephone encounter Cayla Fitt [facility] Start: 04-12-2021 End: 04-12-2021 ambulatory Cayla Fitt Other [facility] Other Start: 04-12-2021 Telephone encounter Cayla Fitt [facility] Procedures Date Procedure Procedure Detail [...] Work Phone: Start: 09-15-2023 Comprehensive metabolic panel [facility] DO Work Phone: Start: 09-15-2023 Ct thorax w/o contra st material [facility] DO Work Phone: Start: 12-31-2018 Echocardiography Plan of Treatment Date Care Activity Detail Author Bacteria identified in Sputum by Respiratory culture Lower resp/sputum culture inc gram stain: Patient acquired Microbiology Routine 09/16/2023 3:08 PM EDT [facility] Cytology Cytology Patholo gy and Cytology Routine Release Upon Ordering for 1 Occurrences starting 09/16/2023 [facility] Work Phone: Comment on above: Release Upon Orderin g for 1 Occurrences starting 09/16/2023 Fungus identified in Unspecified specimen by Culture Fungal culture includes fungal smear Microbiology Routine 09/16/2023 3:08 PM EDT [facility] Mycobacterium sp identified in Unspecified specimen by Organism specific culture AFB culture concentrated includes AFB smear Microbiology Routine 09/16/2023 3:08 PM EDT [facility] Immunizations Immunization Date Immunization Notes Care Provider Fa danilo 02-03-2022 influenza, injectabl e, quadrivalent, contains preservative Keysha Reynoso MD Work Phone: [facility] 01-25-2021 influenza, injectabl e, quadrivalent, contains preservative Keysha Reynoso MD Work Phone: [facility] 12-09-2019 influenza, seasonal, injectable Keysha Reynoso MD Work Phone: [facility] 04-09-2019 pneumococcal polysaccharide vaccine, 23 valent Keysha Reynoso MD Work Phone: [facility] 02-06-2017 influenza, injectabl e, quadrivalent, preservative free Keysha Reynoso MD Work Phone: [facility] 05-10-2016 influenza, injectabl e, quadrivalent, contains preservative Keysha Reynoso MD Work Phone: [facility] 05-10-2016 pneumococcal polysaccharide vaccine, 23 valent Keysha Reynoso MD Work Phone: [facility] Payers Date Payer Category Payer Unknown [id number] 2020 Self-pay 2020 Medicaid [facility]ICAID [facility] EDICAID [id number] 2020-Present [phone] [address] [place] [address] [id number] 2020 Medicaid [id number] 2017 Medicare MEDICARE MEDICAR E PART A & B [id number] 2017-Present [phone] [address] [place] [address] [id number] 2017 Medicare [id number] 1950 Unknown [id number] 1950 Unknown [id number] [id number] 1950 Unknown [id number] [id number] 1950 Unknown [id number] [id number] 1950 Unknown [id number] [id number] 1950 Unknown [id number] [id number] 1950 Unknown [id number] [id number] 1950 Unknown [id number] [id number] 1950 Unknown [id number] [id number] Unknown [id number] [id number] Unknown [id number] 2.16.840.1.393963.3.579.2.531 Unknown [id number] [id number] Unknown [id number] [id number] Unknown [id number] [id number] Social History Date Type Detail Facility Start: 05-20-2020 End: 09-16-2023 Sex Assigned At [facility] Tobacco smoking status No Smokin g Status Entered [facility] Start: 04-09-1977 [facility] Start: 04-09-1977 History of tobacco use [facility]o [facility] Start: 05-20-2020 End: 09-16-2023 Cigarettes smoked current (pack per day) - [facility] Start: 09-16-2023 Tobacco use and exposure Smokeless tobacco non-user [facility] Start: 09-17-2023 Alcoholic beverage intake Current drinker of alcohol (finding) [facility] Has the [employer], [employer], [employer], or water company threatened to shut off services in your home in past 12Mo No OrangeHRM Adolescent depressio n screening assessment 2 [facility] Start: 09-16-2023 Alcohol Comment occasionally [employer] Start: 1950 Sex assigned at Not on file P [employer] Goals Date Patient Goal Desired Activity /State [...] Units Date/Time Fungal culture includes fungal smear [[id number]] Collected: 09/16/23 1508 Specimen: Bronchial Alveolar Lavage from Lung, Right Middle Lobe Updated: 09/17/23 1057 Lower resp/sputum culture inc gram stain: Patient acquired [[id number]] Collected: 09/16/23 1508 Specimen: Bronchial Alveolar Lavage from Lung, Right Middle Lobe Updated: 09/17/23 1122 AFB culture concentrated includes AFB smear [[id number]] Collected: 09/16/23 1508 Specimen: Bronchial Alveolar Lavage [...] progress note was completed using a voice wholesale diamond broker system. Every effort was made to ensure accuracy. However, inadvertent computerized wholesale diamond broker errors may be present. Cihto Will MD PGY-3 Internal Medicine [facility] 09/17/23 1:00 PM Associated attestation - Amy [...] switch unasyn to augmentin. Amy Montague DO. [facility] Physicians Pulmonary and Sleep Pulmonary / Critical Care Pager: [phone] Images from the original note were not included. [facility] Hospitalists Progress Note 09/16/2023 Patient Name: [...] fluid -patient will require swallow study with LOT PORTER after bronchoscopy -DVT Prophylaxis: Low risk a prolonged stay will continue -GI Prophylaxis: Not indicated -Code Status: Full code Disposition: Bronchoscopy today, will require LOT PORTER evaluation afterward, if continues to be on [...] correct any mistakes. documented in this encounter [facility] 09-17-2023 Progress note Formatting of t his note is different from the original. Images from the original note were not included. DISCHARGE PLANNING NOTE Insurance Agency Sales Manager met with patient, introduced self, and explained role. Patient educated on safe discharge plan. Pt admitted 09/15/2023 with Foreign body in bronchus, initial encounter [T17.508A] per chart review. Past Medical History: Diagnosis Date Anemia Atherosclerotic heart disease of [place] coronary artery without angina pectoris COPD (chronic obstructive pulmonary disease) ([facility] [place] CVA (cerebral vascular accident) ([facility] [place]) Diabetes mellitus type 2, controlled ([facility] [place]) GERD (gastroesophageal reflux disease) Hyperlipidemia Hypertension Hypothyroidism Major depressive disorder Muscle weakness Non-ischemic cardiomyopathy ([facility] [place]) Obesity Other lack of coordination Other symbolic dysfunctions Schizoaffective disorder ([facility]) Schizophrenia ([facility]) Tremor Unspecified disorder of psychological development Prior to admission patient was living at [facility] in [facility]. Patient reports [place] staff assists her with all ADLs as needed. [place] provides all meals and medication administration per patient report. Medical equipment patient used prior to admission includes: Walker - Standard. Patient denies need for transportation/ food/ prescription medication assistance resources. CN contacted [facility], spoke with Alessandra RN, and updated her on anticipated discharge today. Alessandra HAYWARD spoke with [place] management and they determined they can accept patient back with dysphagia diet and possible home O2- awaiting O2 evaluation. AL requesting transport be arranged home for patient. CN contacted patient's legal guardian, Marah Mae, to confirm discharge planning. Marah agreeable for patient to return to [facility]. Legal guardian information given by [place] and added to demographics. Requested MD call legal guardian for medical updates. Discharge order is in. Tasked [facility] transport back to [facility] d/t mental diagnoses. Await transport time confirmation. CRF and ST note faxed to [facility] per request. Contacted [facility] and updated RN that patient does not qualify for home O2. AL also informed to transport time- 5pm. PCP: MADHURI REZA DO Pharmacy: [facility] [place], [place] - confirmed pharmacy with Alessandra Hayward from [place] MADHURI REZA DO added to Follow Up Providers for Summary of Care communication. Current discharge plan is: Discharge home with self care when medically ready Services Requested: Services Requested Discharge Disposition: Assisted Living Assisted Living Name: [facility] Does the patient need discharge transportation arranged?: Yes Transportation Arranged: Ambulance Mobility issues discussed with transportation provider: Yes Patient choice offered: Yes Initial DC Assessment Completed: Yes Goals: Goals Patient Stated return home (pt-stated) Evaluation of progress towards goal: patient/ guardian are agreeable for patient to return home. [facility] able to accept patient back. Will continue to follow as plan of care develops. Please feel free to reach out for any discharge planning questions. - Dilcia Ulloa RN 09/17/23 2:44 PM [facility] [facility] 09-17-2023 Miscellaneous Notes Images from the original note were not included. DISCHARGE PLANNING NOTE Insurance Agency Sales Manager met with patient, introduced self, and explained role. Patient educated on safe discharge plan. Pt admitted 09/15/2023 with Foreign body in bronchus, initial encounter [T17.508A] per chart review. Past Medical History: Diagnosis Date Anemia Atherosclerotic heart disease of [place] coronary artery without angina pectoris COPD (chronic obstructive pulmonary disease) ([facility] [place]) CVA (cerebral vascular accident) ([facility] [place]) Diabetes mellitus type 2, controlled ([facility]) GERD (gastroesophageal reflux disease) Hyperlipidemia Hypertension Hypothyroidism Major depressive disorder Muscle weakness Non-ischemic cardiomyopathy ([facility] [place]) Obesity Other lack of coordination Other symbolic dysfunctions Schizoaffective disorder ([facility]) Schizophrenia ([facility]) Tremor Unspecified disorder of psychological development Prior to admission patient was living at [facility]. Patient reports [facility] staff assists her with all ADLs as needed. [facility] provides all meals and medication administration per patient report. Medical equipment patient used prior to admission includes: Walker - Standard. Patient denies need for transportation/ food/ prescription medication assistance resources. CN contacted [facility], spoke with Alessandra HAYWARD, and updated her on anticipated discharge today. Alessandra RN spoke with [facility] management and they determined they can accept patient back with dysphagia diet and possible home O2- awaiting O2 evaluation. AL requesting transport be arranged home for patient. CN contacted patient's legal guardian, Marah Mae, to confirm discharge planning. Marah agreeable for patient to return to [facility]. Legal guardian information given by [place] and added to demographics. Requested MD call legal guardian for medical updates. Discharge order is in. Tasked [facility] transport back to [facility] d/t mental diagnoses. Await transport time confirmation. CRF and ST note faxed to [facility] per request. Contacted [facility] and updated RN that patient does not qualify for home O2. AL also informed to transport time- 5pm. PCP: MADHURI REZA DO Pharmacy: [facility] [place], [place] - confirmed pharmacy with Alessandra Hayward from [place] MADHURI J VASCHAK, DO added to Follow [...] Description: INTERVENTIONS: 1. Encourage patient or legal access service representative to report early pain and ask [...] per policy 9. Teach patient or legal access service representative interventions for comforting Outcome: Progressing Note: [...] at the bedside 7. Instruct patient/ patient access service representative about use of safety devices 8. Include patient/ patient access service representative in decisions related to safety Outcome: [...] hygiene technique 7. Identify and instruct patient/patient access service representative in use of appropriate isolation precautions for identified infection/symptoms 8. Provide and discuss with patient/patient access service representative on educational MDRO sheet 9. Encourage and monitor nutritional status daily and consult junk removal specialist if indicated 10. Implement neutropenic guidelines as needed 11. Review exposure to history of communicable disease and recent travel history on admission 12. Encourage annual influenza vaccine 13. Encourage pneumonia vaccine Outcome: Progressing Note: Evaluation of progress towards goal: On antibiotics, monitoring for increased signs and symptoms of infection. Problem: Knowledge Deficit Goal: Patient/patient access service representative demonstrates understanding of disease process, treatment [...] be free from fall Description: Interventions: 1. [place] to environment 2. Hourly rounds addressing the [...] non-skid footwear 11. Teach patient and patient access service representative to maintain environment for safety and [...] (cane, walker) within reach 19. Request patient access service representative bring adaptive equipment/mobility aids from home or obtain and provide as needed 20. Consult pharmacy regarding effects of med's affecting mobility, cognition, and alternatives 21. Obtain physician order for PT if risk factors associated with mobility are present 22. Obtain physician order for OT as appropriate 23. Utilize diversional activities 24. Educate patient and patient access service representative how to maintain a safe environment during visitation times (notify nurse prior to leaving bedside) 25. Consider appropriateness of medical or non-medical information specialist 26. Set up voiding schedule as appropriate [...] discharge planning process 5. Communicate referral to regulatory administrator as appropriate 6. Communicate referral to junk removal specialist as appropriate 7. Collaborate with case management/social media strategist for discharge needs Outcome: Progressing Note: Evaluation [...] contact us with any questions or concerns. [facility] Blood Management/ Bloodless Care [facility] [address] [place] [address] Office: [phone] Problem: Pain Goal: Patient goal is pain score less than 4, able to rest, and participant in treatment plan as appropriate Description: INTERVENTIONS: 1. Encourage patient or legal access service representative to report early pain and ask [...] per policy 9. Teach patient or legal access service representative interventions for comforting Outcome: Progressing Note: [...] at the bedside 7. Instruct patient/ patient access service representative about use of safety devices 8. Include patient/ patient access service representative in decisions related to safety Outcome: [...] hygiene technique 7. Identify and instruct patient/patient access service representative in use of appropriate isolation precautions for identified infection/symptoms 8. Provide and discuss with patient/patient access service representative on educational MDRO sheet 9. Encourage and monitor nutritional status daily and consult junk removal specialist if indicated 10. Implement neutropenic guidelines as needed 11. Review exposure to history of communicable disease and recent travel history on admission 12. Encourage annual influenza vaccine 13. Encourage pneumonia vaccine Outcome: Progressing Note: Evaluation of progress towards goal: infection prevention Problem: Knowledge Deficit Goal: Patient/patient access service representative demonstrates understanding of disease process, treatment [...] Description: INTERVENTIONS: 1. Encourage patient or legal access service representative to report early pain and ask [...] per policy 9. Teach patient or legal access service representative interventions for comforting Outcome: Progressing Note: [...] at the bedside 7. Instruct patient/ patient access service representative about use of safety devices 8. Include patient/ patient access service representative in decisions related to safety Outcome: Progressing Note: Evaluation of progress towards goal: safety maintained, uses call light appropriately Problem: Knowledge Deficit Goal: Patient/patient access service representative demonstrates understanding of disease process, treatment [...] swallow. Discharge planning. Dr. Amy Montague DO. [facility] Physicians Pulmonary & Critical Care Office: [phone] Roy last evening. Discussed [...] consult to follow Dr. Amy Montague DO. [facility] Physicians Pulmonary & Critical Care Office: [phone] with ER staff. Agree there [...] her own tonight. documented in this encounter [facility] 09-17-2023 Hospital course Narrative Images from the original note were not included. [facility] Physicians- Hospital Medicine Discharge Summary Patient's Name: [...] her legal guardian Marah Mae phone # [phone] over the phone regarding overall plan. Discharge [...] These medications were sent to [facility] of [address] [address] [address] amoxicillin-pot clavulanate 875-125 mg per tablet For [...] Bite Sized diet Madhuri Reza DO [address] [facility] [id number] Information Provided to the Patient: Patient given copy of Discharge Instructions, patient hospital stay was discussed. No special instructions. I have spent 35 minutes coordinating and preparing this discharge. I have discussed the patient's hospitalization course, treatment plan and follow up instructions with patient. I have answered all the patient's questions. Electronically signed by: KEYSHA REYNOSO MD [facility] Physician Hospitalists, Department of Internal Medicine 09/17/23 [...] escaped final proofreading documented in this encounter [facility] 09-17-2023 Progress note Formatting of t his note might be different from the original. DISCHARGE PLANNING NOTE BLS to Dave SINGH at 5 PM. Confirmed in [facility]. [facility] 09-17-2023 Plan of care note Problem: Pain Goal: Patient goal is pain score less than 4, able to rest, and participant in treatment plan as appropriate Description: INTERVENTIONS: 1. Encourage patient or legal access service representative to report early pain and ask [...] per policy 9. Teach patient or legal access service representative interventions for comforting Outcome: Progressing Note: [...] at the bedside 7. Instruct patient/ patient access service representative about use of safety devices 8. Include patient/ patient access service representative in decisions related to safety Outcome: [...] hygiene technique 7. Identify and instruct patient/patient access service representative in use of appropriate isolation precautions for identified infection/symptoms 8. Provide and discuss with patient/patient access service representative on educational MDRO sheet 9. Encourage and monitor nutritional status daily and consult junk removal specialist if indicated 10. Implement neutropenic guidelines as needed 11. Review exposure to history of communicable disease and recent travel history on admission 12. Encourage annual influenza vaccine 13. Encourage pneumonia vaccine Outcome: Progressing Note: Evaluation of progress towards goal: On antibiotics, monitoring for increased signs and symptoms of infection. Problem: Knowledge Deficit Goal: Patient/patient access service representative demonstrates understanding of disease process, treatment [...] Score of =/> 25 or indicated by [facility] Re[facility] Assessment Goal: Patient should be free from fall Description: Interventions: 1. [place] to environment 2. Hourly rounds addressing the [...] non-skid footwear 11. Teach patient and patient access service representative to maintain environment for safety and [...] (cane, walker) within reach 19. Request patient access service representative bring adaptive equipment/mobility aids from home or obtain and provide as needed 20. Consult pharmacy regarding effects of med's affecting mobility, cognition, and alternatives 21. Obtain physician order for PT if risk factors associated with mobility are present 22. Obtain physician order for OT as appropriate 23. Utilize diversional activities 24. Educate patient and patient access service representative how to maintain a safe environment during visitation times (notify nurse prior to leaving bedside) 25. Consider appropriateness of medical or non-medical information specialist 26. Set up voiding schedule as appropriate [...] discharge planning process 5. Communicate referral to regulatory administrator as appropriate 6. Communicate referral to junk removal specialist as appropriate 7. Collaborate with case management/social media strategist for discharge needs Outcome: Progressing Note: Evaluation of progress towards goal: Monitoring blood sugars [facility] 09-17-2023 Progress note Formatting of t his [...] contact us with any questions or concerns. [facility] Blood Management/ Bloodless Care [facility] [address] [place] [address] Office: [phone] [facility] 09-17-2023 Nurse Note Pt being monitored in [employer]. Awaiting transport. [facility] 09-17-2023 Nurse Note Pt being monitored in [employer]. Awaiting transport. documented in this encounter [facility] 09-16-2023 Plan of care note Problem: Pain Goal: Patient goal is pain score less than 4, able to rest, and participant in treatment plan as appropriate Description: INTERVENTIONS: 1. Encourage patient or legal access service representative to report early pain and ask [...] per policy 9. Teach patient or legal access service representative interventions for comforting Outcome: Progressing Note: [...] at the bedside 7. Instruct patient/ patient access service representative about use of safety devices 8. Include patient/ patient access service representative in decisions related to safety Outcome: [...] hygiene technique 7. Identify and instruct patient/patient access service representative in use of appropriate isolation precautions for identified infection/symptoms 8. Provide and discuss with patient/patient access service representative on educational MDRO sheet 9. Encourage and monitor nutritional status daily and consult junk removal specialist if indicated 10. Implement neutropenic guidelines as needed 11. Review exposure to history of communicable disease and recent travel history on admission 12. Encourage annual influenza vaccine 13. Encourage pneumonia vaccine Outcome: Progressing Note: Evaluation of progress towards goal: infection prevention Problem: Knowledge Deficit Goal: Patient/patient access service representative demonstrates understanding of disease process, treatment plan, medications, and discharge instructions Description: INTERVENTIONS 1. Complete learning assessment and assess knowledge base 2. Provide teaching at level of understanding 3. Provide teaching via preferred learning method(s) Outcome: Progressing Note: Evaluation of progress towards goal: gen knowledge [facility] 09-16-2023 Plan of care note Problem: Pain Goal: Patient goal is pain score less than 4, able to rest, and participant in treatment plan as appropriate Description: INTERVENTIONS: 1. Encourage patient or legal access service representative to report early pain and ask [...] per policy 9. Teach patient or legal access service representative interventions for comforting Outcome: Progressing Note: [...] at the bedside 7. Instruct patient/ patient access service representative about use of safety devices 8. Include patient/ patient access service representative in decisions related to safety Outcome: Progressing Note: Evaluation of progress towards goal: safety maintained, uses call light appropriately Problem: Knowledge Deficit Goal: Patient/patient access service representative demonstrates understanding of disease process, treatment plan, medications, and discharge instructions Description: INTERVENTIONS 1. Complete learning assessment and assess knowledge base 2. Provide teaching at level of understanding 3. Provide teaching via preferred learning method(s) Outcome: Progressing Note: Evaluation of progress towards goal: bronch complete, monitor swallowing [facility] 09-16-2023 Procedure note Images from the original [...] and video swallow. Discharge planning. Dr. Amy Montauge DO. [facility] Physicians Pulmonary & Critical Care Office: [phone] [facility] 09-16-2023 Attending History and physical note HISTORY AND PHYSICAL INTERVAL NOTE: Jeanmarie M Jose 1950 [id number] H&P reviewed. The patient was examined and [...] Diagnosis Date Anemia Atherosclerotic heart disease of [place] coronary artery without angina pectoris COPD (chronic obstructive pulmonary disease) ([facility] CVA (cerebral vascular accident) ([facility] [place]) Diabetes mellitus type 2, controlled ([facility] [place]) GERD (gastroesophageal reflux disease) Hyperlipidemia Hypertension Hypothyroidism Major depressive disorder Muscle weakness Non-ischemic cardiomyopathy ([facility] [place]) Obesity Other lack of coordination Other symbolic dysfunctions Schizoaffective disorder ([facility]) Schizophrenia ([facility]) Tremor Unspecified disorder of [...] retrieval Chito Will MD PGY-3 Internal Medicine [facility] This consult note was completed using a voice wholesale diamond broker system. Every effort was made to ensure accuracy. However, inadvertent computerized wholesale diamond broker errors may be present. [facility] Work Phone: 09-16-2023 History and physical note HISTORY AND PHYSICAL INTERVAL NOTE: Jeanmarie Garcia 1950 [id number] H&P reviewed. The patient was examined and [...] Diagnosis Date Anemia Atherosclerotic heart disease of [place] coronary artery without angina pectoris COPD (chronic obstructive pulmonary disease) ([facility] [place]) CVA (cerebral vascular accident) ([facility]) Diabetes mellitus type 2, controlled ([facility] [place]) GERD (gastroesophageal reflux disease) Hyperlipidemia Hypertension Hypothyroidism Major depressive disorder Muscle weakness Non-ischemic cardiomyopathy ([facility] [place]) Obesity Other lack of coordination Other symbolic dysfunctions Schizoaffective disorder ([facility]) Schizophrenia ([facility]) Tremor Unspecified disorder of [...] retrieval Chito Will MD PGY-3 Internal Medicine [facility] This consult note was completed using a voice wholesale diamond broker system. Every effort was made to ensure accuracy. However, inadvertent computerized wholesale diamond broker errors may be present. [facility] History and Physical 09/15/2023 [...] pedis pulses present and equal bilaterally Skin: [place], warm, dry; no rashes or lesions Neurologic: [...] Electronically signed by: MD Smita FERREIRA M.D. [facility] Hospitalists This note was completed using a voice wholesale diamond broker system. Every effort was made to ensure accuracy. However, inadvertent computerized wholesale diamond broker errors may be present. documented in this encounter [facility] 09-16-2023 Consult note Associated Order (s): IP [...] Diagnosis Date Anemia Atherosclerotic heart disease of [place] coronary artery without angina pectoris COPD (chronic obstructive pulmonary disease) ([facility]) CVA (cerebral vascular accident) ([facility] [place]) Diabetes mellitus type 2, controlled ([facility]) GERD (gastroesophageal reflux disease) Hyperlipidemia Hypertension Hypothyroidism Major depressive disorder Muscle weakness Non-ischemic cardiomyopathy ([facility]) Obesity Other lack of coordination Other symbolic dysfunctions Schizoaffective disorder ([facility]) Schizophrenia ([facility]) Tremor Unspecified disorder of [...] retrieval Chito Will MD PGY-3 Internal Medicine [facility] This consult note was completed using a voice wholesale diamond broker system. Every effort was made to ensure accuracy. However, inadvertent computerized wholesale diamond broker errors may be present. Associated attestation - [...] to Augmentin at discharge. Amy Montague DO. [facility] Physicians Pulmonary and Sleep Pulmonary / Critical Care Pager: [phone] [facility] 09-16-2023 Consult note Associated Order (s): IP [...] Diagnosis Date Anemia Atherosclerotic heart disease of [place] coronary artery without angina pectoris COPD (chronic obstructive pulmonary disease) ([facility]) CVA (cerebral vascular accident) ([facility]) Diabetes mellitus type 2, controlled ([facility]) GERD (gastroesophageal reflux disease) Hyperlipidemia Hypertension Hypothyroidism Major depressive disorder Muscle weakness Non-ischemic cardiomyopathy ([facility]) Obesity Other lack of coordination Other symbolic dysfunctions Schizoaffective disorder ([facility]) Schizophrenia ([facility]) Tremor Unspecified disorder of [...] retrieval Chito Will MD PGY-3 Internal Medicine [facility] This consult note was completed using a voice wholesale diamond broker system. Every effort was made to ensure accuracy. However, inadvertent computerized wholesale diamond broker errors may be present. Associated attestation - [...] to Augmentin at discharge. Amy Montague DO. [facility] Physicians Pulmonary and Sleep Pulmonary / Critical Care Pager: [phone] documented in this encounter [facility] 09-16-2023 Note XR CHEST 1 VW Procedure: Chest x-ray performed Number of views:AP portable upright History:Cough Comparison:None Findings: The heart and lungs show no acute findings, and the mediastinum and maribel are grossly negative . Impression: No acute change. Finalized by Leilani Rizo DO on 09/16/2023 8:39 AM [facility] 09-16-2023 Note Procedure: Chest x-ray performed Number of views:AP portable upright History:Cough Comparison:None Findings: The heart and lungs show no acute findings, and the mediastinum and maribel are grossly negative . Impression: No acute change. Finalized by Leilani Rizo DO on 09/16/2023 8:39 AM [facility] 09-16-2023 Progress note Formatting of t his [...] consult to follow Dr. Amy Montague DO. [facility] Physicians Pulmonary & Critical Care Office: [phone] [facility] 09-15-2023 Emergency department Note Dave Jeter wants report when patient is admitted and on the floor. Ask for Ilana [phone]. [facility] 09-15-2023 Emergency department Note Dave Jeter wants report when patient is admitted and on the floor. Ask for Ilana [phone]. Images from the original note were not included. History Chief Complaint Patient presents with Choking Foreign Body in Throat 35-year-old female who presented to [facility] via EMS after choking on chicken earlier [...] made aware of patient's current visit to [facility]. Amount and/or Complexity of Data Reviewed Labs: ordered. Radiology: ordered. Risk Prescription drug management. I, René Monroe (scribe), documented on behalf of Dr. White. [id number] Jeanmarie Garcia is a 73 y.o. female [...] signing this emergency patient record, the Emergency Physician/COMMISSION ASSOCIATE/PA-C attests that all entries made into the electronic medical record by azeem Villavicencio prior to the Physician/COMMISSION ASSOCIATE/PA-C signature reflect an accurate accounting of the evaluation and care rendered by that Emergency Physician/COMMISSION ASSOCIATE/PA-C. The Emergency Physician/COMMISSION ASSOCIATE/PA-C assumes full responsibility for those entries. The Emergency Physician/COMMISSION ASSOCIATE/PA-C also attests that any patient testing or treatment that was instituted by nursing staff in accordance to Emergency Department Preemptive Guidelines have been reviewed and unless so stated elsewhere in this patient chart, the Physician/COMMISSION ASSOCIATE/PA-C agrees with the testing and care provided. [...] signing this emergency patient record, the Emergency Physician/COMMISSION ASSOCIATE/PA-C attests that all entries made into the electronic medical record by the scribe prior to the Physician/COMMISSION ASSOCIATE/PA-C signature reflect an accurate accounting of the evaluation and care rendered by that Emergency Physician/COMMISSION ASSOCIATE/PA-C. The Emergency Physician/COMMISSION ASSOCIATE/PA-C assumes full responsibility for those entries. René [...] Transfer Jeanmarie Garcia 1950 Choking episode at custodial, received heimlich 4x, pt still feels something stuck, hx stroke Dr. [facility]ate [facility] Assisted living 98% RA Dry coughing 20g L FA No meds documented in this encounter [facility] 09-15-2023 History and physical note [facility] Physicians Hospitalists History and Physical 09/15/2023 Patient [...] as of 09/15/232016 Sat Sep 15, 2023 0495 I independently reviewed the patient's CT chest. [...] pedis pulses present and equal bilaterally Skin: [place], warm, dry; no rashes or lesions Neurologic: [...] Electronically signed by: MD Smita FERREIRA M.D. [facility] Hospitalists This note was completed using a voice wholesale diamond broker system. Every effort was made to ensure accuracy. However, inadvertent computerized wholesale diamond broker errors may be present. [facility] Work Phone: 09-15-2023 Progress note Formatting of [...] does not expectorate on her own tonight. [facility] Work Phone: 09-15-2023 Physician Emergency department Note Images from the original note were not included. History Chief Complaint Patient presents with Choking Foreign Body in Throat 35-year-old female who presented to [facility] via EMS after choking on chicken earlier [...] made aware of patient's current visit to [facility]. Amount and/or Complexity of Data Reviewed Labs: ordered. Radiology: ordered. Risk Prescription drug management. I, René Monroe (scribe), documented on behalf of Dr. White. [id number] Jeanmarie Garcia is a 73 y.o. female [...] signing this emergency patient record, the Emergency Physician/COMMISSION ASSOCIATE/PA-C attests that all entries made into the electronic medical record by azeem Villavicencio prior to the Physician/COMMISSION ASSOCIATE/PA-C signature reflect an accurate accounting of the evaluation and care rendered by that Emergency Physician/COMMISSION ASSOCIATE/PA-C. The Emergency Physician/COMMISSION ASSOCIATE/PA-C assumes full responsibility for those entries. The Emergency Physician/COMMISSION ASSOCIATE/PA-C also attests that any patient testing or treatment that was instituted by nursing staff in accordance to Emergency Department Preemptive Guidelines have been reviewed and unless so stated elsewhere in this patient chart, the Physician/COMMISSION ASSOCIATE/PA-C agrees with the testing and care provided. [...] signing this emergency patient record, the Emergency Physician/COMMISSION ASSOCIATE/PA-C attests that all entries made into the electronic medical record by the scribe prior to the Physician/COMMISSION ASSOCIATE/PA-C signature reflect an accurate accounting of the evaluation and care rendered by that Emergency Physician/COMMISSION ASSOCIATE/PA-C. The Emergency Physician/COMMISSION ASSOCIATE/PA-C assumes full responsibility for those entries. René Monroe 09/15/23 1610 René Monroe 09/15/231957 René Monroe 09/15/232024 Franko White DO 09/15/232245 [facility] 09-15-2023 Emergency department Triage note Pt presents to ED by EMS from nursing facility. Per EMS pt was eating lunch and choked on some chicken. EMS stated pt was given heimlich maneuver which opened her airway but nothing was expelled from throat. EMS reports pt having a dry cough for EMS ride and upon arrival. . Pt VSS and no distress noted. [facility] 09-15-2023 Emergency department Note Bed: 33 Expected date: Expected time: Means of arrival: Comments: 73 y/o F Choked while eating lunch 98% 2L 80 18 129/76 ETA 10 [place] Transfer Jeanmarie Garcia 1950 Choking episode at custodial, received heimlich 4x, pt still feels something stuck, hx stroke Dr. [facility] Assisted living 98% RA Dry coughing 20g L FA No meds [facility] Evaluation + Plan note No data available for this section [facility] Evaluation note No Information [facility] Zip[employer] Other Evaluation note Diagnosis Foreign body in bronchus, initial encounter- Primary Foreign body in bronchus, initial encounter documented in this encounter [facility] SystemHistory general Narrative - Reported* Type Description Date Medical History schizophrenia Medical History Hypothyroidism Medical History COPD Medical History Hypertension Medical History CAD Surgical History thyroidectomy Surgical History exploratory lap, SBO [facility] Charge Payment Other History general Narrative - [facility] Charge Payment Other Hospital Discharge instructions No data available for this section [facility] Dis[facility] instructionsNot on file [facility] System[facility] note No data available for this section [facility] Summary Purpose Family History No Family [...] Agents on File Name Relationship Healthcare Agent [facility] Health Care Agent Hospital Course Note [facility] SURGERY Clinical Discharge Summary PERSON INFORMATION Name JEANMARIE GARCIA Age 68 Years 1950 Sex FEMALE Language Mohawk PCP EGRALD FUENTES Marital Status Single Med Service Ambulatory Surgery Acct# Arrival 05/13/2019 05:53:00 Visit Reason SURGERY - INCISIONAL VENTRAL HERNIA REPAIR WITH MESH Acuity LOS 007 21:08 Address: [address] [place] [address] Comment: PROVIDER INFORMATION VITALS INFORMATION Vital Sign [...] as needed as needed for pain. acetaminophen-hydrocodone ([place] 5 mg-325 mg oral tablet) 1 tab(s) Oral Every 6 hours as needed for pain. Refills: 0. a (more content not included)... Reason for Referral Specialty Diagnoses / Procedures Referred By Anastasiia ingram Referred To Contact Diagnoses Foreign body in bronchus, initial encounter Procedures Follow-up with primary care provider Keysha Reynoso MD [address] [place] [address] Referral ID Status Reason Start Date Expiration Date V isits Requested Visits Authorized [id number] Pending Review 09/17/2023 09/16/2024 1 1 Additional Source Comments INFORMATION SOURCE (unrecogn ized section and content) DATE CREATED AUTHOR 09/27/2017 [facility] DATE CREATED AUTHOR AUTHOR'S ORGANIZ ATION 01/11/2019 [facility] DATE CREATED AUTHOR AUTHOR'S ORGANIZ ATION 11/07/[facility] DATE CREATED AUTHOR AUTHOR'S ORGANIZ ATION 05/13/2022 [facility] DATE CREATED AUTHOR AUTHOR'S ORGANIZ ATION [facility]20[facility] DATE CREATED AUTHOR AUTHOR'S ORGANIZ ATION 11/15/2023 [facility] DATE CREATED AUTHOR AUTHOR'S ORGANIZ ATION 05/09/2024 [facility] DATE CREATED AUTHOR AUTHOR'S ORGANIZ ATION 05/16/2024 [facility] REASON FOR VISIT (unrecogniz ed section and content) Reason Comments Choking Foreign Body in Throat Specialty Diagnoses / Procedures Referred By Anastasiia ingram Referred To Contact Diagnoses Foreign body in bronchus, initial encounter Smita Mesa MD [address] [place] [address] [place] [id number] Referral ID Status Reason Start Date Expiration Date Visits Re quested Visits Authorized [id number] 1 1 [facility] AppointmentReview DM plan of care Patient Care team informatio n (unrecognized section and content) Cyber Security Relationship Specialty Start Date End Date Madhuri RezaDO [address] [place] [address] PCP - General 03/23/17 Scheduled Active and [...] RN)0714 (Stop Bag - Provider: Marah Wei, YOSHI)1243 (New Bag - Provider: Marah Wei, YOSHI)1313 [...] Transfer Provider - Reason: Patient not available)1522 ([facility] Unhold - Provider: Automatic Transfer Provider) [...] Transfer Provider - Reason: Patient not available)1522 ([facility] Unhold - Provider: Automatic Transfer Provider) [...] grams (4000 mg) in 24 hours] 1506 ([facility] Hold - Provider: Automatic Transfer Provider - Reason: Patient not available)1522 ([facility] Unhold - Provider: Automatic Transfer Provider) barium sulfate (VARIBAR PUDDING) 40 % (w/v), 30% (w/w) oral paste 60 mL (COMPLETED) 60 mL, oral, Once in imaging, contrast, barium sulfate (VARIBAR PUDDING) 40 % (w/v), 30% (w/w) oral paste, Starting on 09/17/23 at 0844, For 1 dose 0849 (Given - Provid er: Linda Milks, [employer]) barium sulfate (VARIBAR THIN) 81 % (w/w) powder 148 g (COMPLETED) 148 g, oral, Once in imaging, contrast, barium sulfate (VARIBAR THIN) 40 % (w/v) powder, Starting on 09/17/23 at 0844, For 1 dose 0849 (Given - Provid er: Linda Milks, [employer]) dextrose (GLUTOSE) 40 % gel 15 g 15 g, oral, As needed, low blood sugar, blood glucose less than 70 mg/dL, Starting on 09/16/23 at 0036, If patient conscious and taking PO. If blood glucose is not greater than 70 mg/dL after initial treatment, repeat treatment. 1506 ([facility] Hold - Provider: Automatic Transfer Provider - Reason: Patient not available)1522 ([facility] Unhold - Provider: Automatic Transfer Provider) dextrose 5 % (D5W) infusion 100 mL/hr, intravenous, Continuous PRN, blood glucose less than 70 mg/dL, Starting on 09/16/23 at 0036, Use immediately following dextrose 50% or glucagon treatment for patients who are unconscious or NPO. Contact prescriber for additional orders. If blood glucose is not greater than 70 mg/dL after initial treatment, repeat treatment. 1506 ([facility] Hold - Provider: Automatic Transfer Provider - Reason: Patient not available)1522 ([facility] Unhold - Provider: Automatic Transfer Provider) [...] treatment. VESICANT (RED) Warning: HYPERTONIC solution. 1506 ([facility] Hold - Provider: Automatic Transfer Provider - Reason: Patient not available)1522 ([facility] Unhold - Provider: Automatic Transfer Provider) [...] mg/dL after initial treatment, repeat treatment. 1506 ([facility] Hold - Provider: Automatic Transfer Provider - Reason: Patient not available)1522 ([facility] Unhold - Provider: Automatic Transfer Provider) ondansetron (PF) (ZOFRAN) injection 4 mg 4 mg, intravenous, Every 8 hours PRN, nausea, vomiting, Starting on 09/16/23 at 0036, Administer over 2-5 minutes. 1506 ([facility] Hold - Provider: Automatic Transfer Provider - Reason: Patient not available)1522 ([facility] Unhold - Provider: Automatic Transfer Provider) sennosides-docusate sodium (SENOKOT-S) 8.6-50 mg 1 tablet 1 tablet, oral, Every 12 hours PRN, constipation, Starting on 09/16/23 at 0036 1506 ([facility] Hold - Provider: Automatic Transfer Provider - Reason: Patient not available)1522 ([facility] Unhold - Provider: Automatic Transfer Provider) sodium chloride 0.9 % flush 3 mL 3 mL, intravenous, As needed, line care, before and after each intermittent use, Starting on 09/15/23 at 1837 1506 ([facility] Hold - Provider: Automatic Transfer Provider - Reason: Patient not available)1522 ([facility] Unhold - Provider: Automatic Transfer Provider) sodium chloride 0.9 % flush bag 25 mL, intravenous, at 100 mL/hr, Administer over 15 Minutes, As needed, line care, line care after IVPB administration, Starting on 09/16/23 at 0036 1506 ([facility] Hold - Provider: Automatic Transfer Provider - Reason: Patient not available)1522 ([facility] Unhold - Provider: Automatic Transfer Provider) [...] lines, Starting on 09/16/23 at 0036 1506 ([facility] Hold - Provider: Automatic Transfer Provider - Reason: Patient not available)1522 ([facility] Unhold - Provider: Automatic Transfer Provider) [...] BE BASED ON THE PRIMARY CLINICAL RECORDS. [facility] [employer] [facility]. provides no warranty or guarantee of the accuracy or completeness of information in this document.
[2024-07-06 13:51] LABS: Thyroid Stimulating Hormone 6.217 uIU/mL (0.358-3.740)
[2024-07-06 13:54] LABS: Phosphorus 4.5 mg/dL (2.6-4.7)
[2024-07-06 13:56] LABS: Lactate/Lactic Acid 2.1 mmol/L (0.4-2.0)
[2024-07-06] MEDS: 0.9 % SODIUM CHLORIDE 1,000 ML 150 ML IV ×2 (14:03→22:24)
[2024-07-06 14:36] LABS: Lactate/Lactic Acid 1.9 mmol/L (0.4-2.0)
[2024-07-06] MEDS: LEVOFLOXACIN IN DEXTROSE 5 % 750 MG/150 ML PREMIX 100 MG IV (14:58)
[2024-07-06 15:14] LABS: Anion Gap 15.6; BUN Creatinine Ratio 16.3; Carbon Dioxide 23.7 mmol/L (21.0-32.0); Chloride 99 mmol/L (98-107); Estimated GFR (African America 29 (>=60 mL/min/1.73m^2); Estimated GFR (Non-African Ame 24 (>=60 mL/min/1.73m^2); Potassium 5.3 mmol/L (3.5-5.1); Sodium 133 mmol/L (136-145)
[2024-07-06 15:15] LABS: Glucose 682 mg/dL (74-106)
[2024-07-06] MEDS: INSULIN ASPART 300 UNIT/3 ML PEN SUBQ ×2 (15:31→23:53)
[2024-07-06] MEDS: SODIUM ZIRCONIUM CYCLOSILICATE 10 GM POWD.PACK PO (15:34)
[2024-07-06] MEDS: IPRATROPIUM/ALBUTEROL SULFATE 3 ML AMPUL.NEB IH ×2 (16:15→22:25)
[2024-07-06] MEDS: ACETAMINOPHEN 500 MG TABLET 1000 MG PO (17:20)
[2024-07-06 18:11] LABS: Glucose 604 mg/dL (74-106)
[2024-07-06 19:58] LABS: Anion Gap 11.9; BUN Creatinine Ratio 16.2; Calcium 8.7 mg/dL (8.5-10.1); Carbon Dioxide 28.2 mmol/L (21.0-32.0); Chloride 102 mmol/L (98-107); Estimated GFR (African America 31 (>=60 mL/min/1.73m^2); Estimated GFR (Non-African Ame 26 (>=60 mL/min/1.73m^2); Glucose 434 mg/dL (74-106); Potassium 4.1 mmol/L (3.5-5.1); Sodium 138 mmol/L (136-145)
[2024-07-06 21:30] LABS: Glucometer 428 mg/dL (74-106)
[2024-07-06 23:24] LABS: Anion Gap 13.7; BUN Creatinine Ratio 17.6; Calcium 8.7 mg/dL (8.5-10.1); Carbon Dioxide 25.5 mmol/L (21.0-32.0); Chloride 101 mmol/L (98-107); Estimated GFR (African America 34 (>=60 mL/min/1.73m^2); Estimated GFR (Non-African Ame 28 (>=60 mL/min/1.73m^2); Glucose 335 mg/dL (74-106); Potassium 4.2 mmol/L (3.5-5.1); Sodium 136 mmol/L (136-145)
[2024-07-07] VITALS (26 sets, daily range): BP systolic 113–120; BP diastolic 66–75; PULSE 77–104; TEMP 35.9–36.6; O2SAT 84–100
[2024-07-07] MEDS: IPRATROPIUM/ALBUTEROL SULFATE 3 ML AMPUL.NEB IH ×2 (04:43→10:43)
[2024-07-07] MEDS: 0.9 % SODIUM CHLORIDE 1,000 ML 150 ML IV (05:11)
--- NOTE | 2024-07-07 05:58 | P.PN_ITS ---
Progress Note: Subjective Subjective Interval history: Patient does feel much better today, looks much better today, sugars are improved Exam Constitutional Vital Signs, click to edit/add: Last Vital Signs Temp 96.7 F L 07/07/24 04:00 Pulse 84 07/07/24 04:43 Resp 20 07/07/24 04:43 BP 120/66 07/07/24 04:00 Pulse Ox 100 07/07/24 04:43 O2 Del Method Room Air 07/07/24 04:43 O2 Flow Rate 2 07/06/24 13:58 Documenting provider has reviewed patient's vital signs: yes Common normals: no apparent distress Chest Common normals: inspection of chest normal Respiratory Common normals: normal respiratory effort, no use of accessory muscles and clear to auscultation bilaterally Cardio Common normals: regular rate and regular rhythm GI Common normals: soft to palpation and non-tender; negative for Normal to inspection, nondistended, normoactive bowel sounds present (Morbid obesity) Extremity Common normals: normal to inspection and no clubbing, cyanosis or edema Neuro Other: Difficult to understand speech but is better today Progress Note: Objective Labs Labs: Short CBC 07/06/24 Range/Units 08:30 WBC 8.9 (4.0-11.0) 10^3/uL Hgb 12.8 (12.0-16.0) g/dL Hct 39.3 (36.0-48.0) % Plt Count 198 (150-450) 10^3/uL BMP 07/06/24 07/06/24 07/06/24 08:30 10:36 12:18 Sodium 121 L* 124 L* 136 Potassium 6.6 H* 7.0 H* 4.8 Chloride 87 L 91 L 101 Carbon Dioxide 25.0 26.8 27.2 BUN 38.0 H 37.0 H 35.0 H Creatinine 2.28 H 2.19 H 2.12 H Glucose 1185 H* 1110 H* 666 H* Calcium 9.4 9.2 9.0 07/06/24 07/06/24 07/06/24 14:51 17:41 19:30 Sodium 133 L 138 Potassium 5.3 H 4.1 Chloride 99 102 Carbon Dioxide 23.7 28.2 BUN 33.0 H 31.0 H Creatinine 2.03 H 1.91 H Glucose 682 H* 604 H* 434 H Calcium 9.0 8.7 07/06/24 23:00 Sodium 136 Potassium 4.2 Chloride 101 Carbon Dioxide 25.5 BUN 31.0 H Creatinine 1.76 H Glucose 335 H Calcium 8.7 Urine 07/06/24 Range/Units 09:53 Urine Color Lt. yellow (YELLOW) Urine Clarity Clear (CLEAR) Urine pH 6.0 (5.0-9.0) Ur Specific [place] <=1.005 A (1.005-1.025) Urine Protein Negative (NEG/TRACE) mg/dL Urine Glucose (UA) >=1000 A (NEGATIVE) mg/dL Progress Note: A&P Assessment and Plan (1) Hyperglycemia: (2) Enteritis: (3) Hypothyroidism: (4) Schizoaffective disorder, bipolar type: (5) Muscle weakness: (6) GERD (gastroesophageal reflux disease): (7) Hypertension: (8) COPD (chronic obstructive pulmonary disease): (9) Diabetes mellitus: Plan Admission findings: Vital signs stable significant hyperglycemia with sugar over thousand, severe hyponatremia and hyperkalemia, acute kidney injury stage II secondary to 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 with sugar over thousand, sugar much improved to just over 100, probably little faster than anticipated, cut back on fluids, change insulin sliding scale to before meals and at bedtime with Accu-Cheks is the same, eval by physical therapy. Eval for rehab versus back to [place] Hyponatremia secondary to above-improved Hyperkalemia secondary to above-resolved to normal Acute kidney injury stage II-baseline creatinine of 1.08, admission creatinine of 2.28 which is 211% above baseline with decreased urine output resulting in stage II acute kidney injury-improved today, creatinine still elevated but is approximately 135 % above baseline Schizoaffective disorder-continue with current medications Hypertension continue with current medications-stable Hypothyroidism continue with current medications Chronic kidney disease, holding off on Kerendia as possible cause for hyperkalemia Movement disorder possibly related to her treatment for schizoaffective disorder continue current medications Admission status: With sugar over thousand, need to decrease sugar but not quickly to prevent cerebral edema, medically necessary treatment will span 2 midnights. Inpatient status ? Urinary Catheter Management Urinary Catheter Management Urethral: Cath placed during this visit: no
[2024-07-07] MEDS: LEVOTHYROXINE SODIUM 100 MCG TABLET PO (06:02)
[2024-07-07] MEDS: INSULIN ASPART 300 UNIT/3 ML PEN SUBQ ×2 (06:03→11:22)
[2024-07-07 07:01] LABS: Basophils Percent Auto 0.2 % (0.2-2.0); Eosinophils Absolute Auto 0.9 10^3/uL (0.0-0.7); Hematocrit 33.6 % (36.0-48.0); Hemoglobin 11.3 g/dL (12.0-16.0); Immature Granulocytes Abs Auto 0.02 10^3/uL (0.00-0.03); Immature Granulocytes Pct Auto 0.2 % (0.0-0.5); Lymphocytes Absolute Auto 2.3 10^3/uL (1.2-3.8); Lymphocytes Percent Auto 24.4 % (20.5-60.0); Mean Corpuscular HGB Conc 33.6 g/dL (29.9-35.2); Mean Corpuscular Hemoglobin 29.6 pg (26.7-34.0); Mean Platelet Volume 10.1 fL (9.5-13.5); Monocytes Absolute Auto 0.4 10^3/uL (0.3-0.8); Monocytes Percent Auto 4.6 % (1.7-12.0); Neutrophils Absolute Auto 5.9 10^3/uL (1.4-6.5); Neutrophils Percent Auto 61.6 % (43.0-75.0); Platelet Count 189 10^3/uL (150-450); Red Blood Count 3.82 10^6/uL (4.20-5.40); Red Cell Distribution Width 13.7 % (11.0-15.0); White Blood Count 9.5 10^3/uL (4.0-11.0)
[2024-07-07 07:22] LABS: Alanine Aminotransferase 18 U/L (14-59); Albumin Globulin Ratio 0.7; Albumin Level 2.6 g/dL (3.4-5.0); Alkaline Phosphatase 101 U/L (46-116); Anion Gap 10.6; Aspartate Amino Transferase 17 U/L (15-37); BUN Creatinine Ratio 18.6; Bilirubin Total 0.5 mg/dL (0.2-1.0); Calcium 8.3 mg/dL (8.5-10.1); Carbon Dioxide 26.9 mmol/L (21.0-32.0); Chloride 108 mmol/L (98-107); Estimated GFR (African America 43 (>=60 mL/min/1.73m^2); Estimated GFR (Non-African Ame 36 (>=60 mL/min/1.73m^2); Globulin 3.6 g/dL; Glucose 142 mg/dL (74-106); Potassium 3.5 mmol/L (3.5-5.1); Sodium 142 mmol/L (136-145); Total Protein 6.2 g/dL (6.4-8.2)
[2024-07-07 07:32] LABS: Bilirubin Direct 0.1 mg/dL (0.0-0.2)
--- NOTE | 2024-07-07 08:10 | CM.NOTE ---
Rounds made with Dr. Bonner, PT and OT will evaluate pt today for discharge planning. [facility] came from [facility]. No discharge today.
[2024-07-07] MEDS: ARIPIPRAZOLE 2 MG TABLET PO (08:45)
[2024-07-07] MEDS: VENLAFAXINE HCL ER 37.5 MG CAPSULE PO (08:45)
[2024-07-07] MEDS: CHOLECALCIFEROL (VITAMIN D3) 25 MCG/1,000 UNITS TABLET 50 MCG PO (08:46)
[2024-07-07] MEDS: CETIRIZINE HCL 10 MG TABLET PO (08:46)
[2024-07-07] MEDS: AMANTADINE HCL 100 MG CAPSULE PO (08:47)
--- NOTE | 2024-07-07 10:12 | SWNOTE1 ---
SW spoke with case management who spoke to therapy and they are recommending HH. Pt had voiced to case management she would like to use therapy from [facility]. FARIHA did send email to Lexi at [facility] to see if they just need an order, waiting to hear back.
--- NOTE | 2024-07-07 10:48 | CM.NOTE ---
Important Message From Medicare discussed with pt, pt verbalizes understanding and signs paper. Original given to pt and copy placed in pt's chart.
--- NOTE | 2024-07-07 12:33 | P.DS_ITS ---
DS: Providers Provider Date of admission: 07/06/24 13:29 Primary care physician: Non-Staff Physician Consults: 07/06/24 10:53 Consult to Pharmacy Routine Consulting Provider: Reason for consultation: Please [place] me when Med Rec is Updated Has provider been notified: No Occupational Therapy Eval and Treat Routine Reason for consultation: Only if needed for Rehab Has provider been notified: No Physical Therapy Eval and Treat Routine Reason for consultation: Eval and Treat Has provider been notified: No DS: Diagnosis Discharge Diagnosis (1) Hyperglycemia: (2) Enteritis: (3) Hypothyroidism: (4) Schizoaffective disorder, bipolar type: (5) Muscle weakness: (6) GERD (gastroesophageal reflux disease): (7) Hypertension: (8) COPD (chronic obstructive pulmonary disease): (9) Diabetes mellitus: Plan Admission findings: Vital signs stable significant hyperglycemia with sugar over thousand, severe hyponatremia and hyperkalemia, acute kidney injury stage II secondary to 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 with sugar over thousand, sugar much improved to just over 100, probably little faster than anticipated, cut back on fluids, change insulin sliding scale to before meals and at bedtime with Accu-Cheks is the same, eval by physical therapy. Eval for rehab versus back to [place] Hyponatremia secondary to above-improved Hyperkalemia secondary to above-resolved to normal Acute kidney injury stage II-baseline creatinine of 1.08, admission creatinine of 2.28 which is 211% above baseline with decreased urine output resulting in stage II acute kidney injury-improved today, creatinine still elevated but is approximately 135 % above baseline Schizoaffective disorder-continue with current medications Hypertension continue with current medications-stable Hypothyroidism continue with current medications Chronic kidney disease, holding off on Kerendia as possible cause for hyperkalemia Movement disorder possibly related to her treatment for schizoaffective disorder continue current medications Admission status: With sugar over thousand, need to decrease sugar but not quickly to prevent cerebral edema, medically necessary treatment will span 2 midnights. Inpatient status ? DS: Summary Time Spent with Patient Time attestation: Total time spent providing and/or coordinating discharge services: Exam Constitutional Vital Signs, click to edit/add: Last Vital Signs Temp 97.8 F 07/07/24 08:00 Pulse 97 H 07/07/24 11:37 Resp 25 H 07/07/24 08:40 BP 117/75 07/07/24 11:35 Pulse Ox 100 07/07/24 09:00 O2 Del Method Room Air 07/07/24 11:37 O2 Flow Rate 2 07/06/24 13:58 DS: Data Data Completed and Pending Labs on day of discharge: Labs from last 24 hours 07/07/24 07/06/24 07/06/24 06:55 23:00 21:29 WBC 9.5 RBC 3.82 L Hgb 11.3 L Hct 33.6 L MCV 88.0 MCH 29.6 MCHC 33.6 RDW 13.7 Plt Count 189 MPV 10.1 Neut % (Auto) 61.6 Lymph % (Auto) 24.4 [place] % (Auto) 4.6 Eos % (Auto) 9.0 H Baso % (Auto) 0.2 Neut # (Auto) 5.9 Lymph # (Auto) 2.3 [place] # (Auto) 0.4 Eos # (Auto) 0.9 H Baso # (Auto) 0.0 Abs Immat Gran (auto) 0.02 Imm/Tot Granulo (auto) 0.2 Sodium 142 136 Potassium 3.5 4.2 Chloride 108 H 101 Carbon Dioxide 26.9 25.5 Anion Gap 10.6 13.7 BUN 27.0 H 31.0 H Creatinine 1.45 H 1.76 H Est GFR ( Amer) 43 L 34 L Est GFR (Non-Af Amer) 36 L 28 L BUN/Creatinine Ratio 18.6 17.6 Glucose 142 H 335 H Lactate Calcium 8.3 L 8.7 Phosphorus Magnesium 2.0 Total Bilirubin 0.5 Direct Bilirubin 0.1 AST 17 ALT 18 Alkaline Phosphatase 101 NT-Pro-B Natriuret Pep Total Protein 6.2 L Albumin 2.6 L Globulin 3.6 Albumin/Globulin Ratio 0.7 TSH Thyroxine (T4) POC Glucose 428 H 07/06/24 07/06/24 07/06/24 19:30 17:41 14:51 WBC RBC Hgb Hct MCV MCH MCHC RDW Plt Count MPV Neut % (Auto) Lymph % (Auto) [place] % (Auto) Eos % (Auto) Baso % (Auto) Neut # (Auto) Lymph # (Auto) [place] # (Auto) Eos # (Auto) Baso # (Auto) Abs Immat Gran (auto) Imm/Tot Granulo (auto) Sodium 138 133 L Potassium 4.1 5.3 H Chloride 102 99 Carbon Dioxide 28.2 23.7 Anion Gap 11.9 15.6 BUN 31.0 H 33.0 H Creatinine 1.91 H 2.03 H Est GFR ( Amer) 31 L 29 L Est GFR (Non-Af Amer) 26 L 24 L BUN/Creatinine Ratio 16.2 16.3 Glucose 434 H 604 H* 682 H* Lactate Calcium 8.7 9.0 Phosphorus Magnesium Total Bilirubin Direct Bilirubin AST ALT Alkaline Phosphatase NT-Pro-B Natriuret Pep Total Protein Albumin Globulin Albumin/Globulin Ratio TSH Thyroxine (T4) POC Glucose 07/06/24 07/06/24 07/06/24 14:12 12:18 08:30 WBC RBC Hgb Hct MCV MCH MCHC RDW Plt Count MPV Neut % (Auto) Lymph % (Auto) [place] % (Auto) Eos % (Auto) Baso % (Auto) Neut # (Auto) Lymph # (Auto) [place] # (Auto) Eos # (Auto) Baso # (Auto) Abs Immat Gran (auto) Imm/Tot Granulo (auto) Sodium 136 Potassium 4.8 Chloride 101 Carbon Dioxide 27.2 Anion Gap 12.6 BUN 35.0 H Creatinine 2.12 H Est GFR ( Amer) 28 L Est GFR (Non-Af Amer) 23 L BUN/Creatinine Ratio 16.5 Glucose 666 H* Lactate 1.9 2.1 H* Calcium 9.0 Phosphorus 4.5 Magnesium Total Bilirubin Direct Bilirubin AST ALT Alkaline Phosphatase NT-Pro-B Natriuret Pep 238.0 Total Protein Albumin Globulin Albumin/Globulin Ratio TSH 6.217 H Thyroxine (T4) 7.70 POC Glucose Discharge Plan Discharge Disposition: Home Health Service Condition: Fair Discharge Medications: New levofloxacin 500 mg tablet 500 mg PO DAILY 5 Days Qty: 5 0RF Continued cetirizine 10 mg tablet 10 mg PO DAILY amantadine HCl 100 mg capsule 100 mg PO DAILY aripiprazole 2 mg tablet 2 mg PO DAILY loperamide [Anti-Diarrheal (loperamide)] 1 mg/7.5 mL liquid 2 mg PO Q8H PRN (Reason: loose stool) cholecalciferol (vitamin D3) 25 mcg (1,000 unit) tablet 25 mcg PO DAILY ondansetron HCl 4 mg tablet 4 mg PO DAILY PRN (Reason: nausea and vomiting) dextromethorphan-guaifenesin [Antitussive DM] 10-100 mg/5 mL syrup 10 ml PO Q4H PRN (Reason: cough) atorvastatin 10 mg tablet 10 mg PO .QHS levothyroxine 100 mcg tablet 100 mcg PO DAILY venlafaxine 37.5 mg capsule,extended release 24hr 37.5 mg PO DAILY Discontinued Kerendia 10 mg tablet 10 mg PO DAILY losartan 50 mg tablet 50 mg PO BID dapagliflozin propanediol [Farxiga] 10 mg tablet 10 mg PO DAILY Print Language: Persian Forms: Portal Instructions
--- NOTE | 2024-07-07 13:04 | PC.NURSE ---
report called to joaquin at [facility]
--- NOTE | 2024-07-07 13:16 | PC.NURSE ---
discharged with belongings to [facility] transport
--- NOTE | 2024-07-07 13:26 | SWNOTE1 ---
[facility] will need outpt order for PT/OT. FARIHA then spoke with Rajni at [facility] and she has a few questions in regards to pt's glucose, FARIHA provided answers from chart. FARIHA advised Rajni that pt will discharge today. Rajni stated they can pick her up between 1:15-1:30. FARIHA sent all updates and dc med rec to Rajni at . FARIHA updated nurse. FARIHA took packet to ICU to nurse. FARIHA placed outpt therapy order in packet. Rajni called back and she stated that we have the wrong guarantor on her face sheet. Rajni stated it was supposed to be fixed over a year ago and was told it was corrected. FARIHA assured Rajni that that person has not been called and FARIHA spoke to Marah the guardian and so did nurse. FARIHA let Rajni know that SW will call registration and get it fixed. FARIHA called registration and requested Emelina be taken off and Marah be put on. Registration took care of this. FARIHA printed updated face sheet and sent to Rajni.
== END 2024-07-07 13:16 | disposition home or self-care (01) | DRG 638 ==
LOC: ER 09:56 → ICU 13:34
PROVIDERS: Admitting Provider Family Medicine; Emergency Provider Emergency Medicine; Visit Provider Family Medicine
DX: E11.00 Type 2 diabetes mellitus with hyperosmolarity without nonketotic hyperglycemic-hyperosmolar coma (NKHHC) (principal); N17.9 Acute kidney failure, unspecified; R25.9 Unspecified abnormal involuntary movements; T50.995A Adverse effect of other drugs, medicaments and biological substances, initial encounter; E87.5 Hyperkalemia; E03.9 Hypothyroidism, unspecified; K21.9 Gastro-esophageal reflux disease without esophagitis; K52.9 Noninfective gastroenteritis and colitis, unspecified; I10 Essential (primary) hypertension; F25.0 Schizoaffective disorder, bipolar type; M62.81 Muscle weakness (generalized); J44.9 Chronic obstructive pulmonary disease, unspecified; Z79.899 Other long term (current) drug therapy; Z79.890 Hormone replacement therapy; Z79.84 Long term (current) use of oral hypoglycemic drugs
CPT/HCPCS: 36415; 70450; 71045; 80048; 80053; 80076; 81001; 82009; 82248; 82800; 82947; 82948; 83605; 83735; 83880; 84100; 84436; 84443; 84484; 85025; 87040; 87045; 87046; 87070; 87205; 87427; 87493; 93005; 94640; 94667; 94668; 94761; 97161; 97165; 99285; G0328; J1817

== ENCOUNTER 2024-07-08 12:38 | Observation (INO) | payer MEDICARE, MEDICAID, SELFPAY ==
[2024-07-08 12:38] VITALS: BP 118/98; PULSE 108; TEMP 36.4; O2SAT 98
--- NOTE | 2024-07-08 12:44 | PC.NURSE ---
Sent from assisted living facility for elevated blood sugar. FSBS reads high on glucometer. Awake and alert, denies discomfort.
--- NOTE | 2024-07-08 13:00 | ECG_ITS ---
[facility] Test Date: 2024-07-08 Pat Name: JEANMARIE ONEILL Department: Room: - Gender: Female Hull Inspector: : [id number] Requested By: [id number] Order Number: [id number] Reading MD: MARIBETH CHILDS M.D. Measurements Intervals Herman Rate: 105 P: 270 PA: 258 QRS: -7 QRSD: 70 T: 65 QT: 328 QTc: 389 Interpretive Statements ACCELERATED JUNCTIONAL RHYTHM 9150 abnormal ECG Compared to ECG 07/06/2024 08:16:26 Sinus rhythm no longer present Electronically Signed On 07-08-2024 20:20:36 EDT by MARIBETH CHILDS M.D.
--- NOTE | 2024-07-08 13:00 | ED_ITS ---
HPI HPI - General Adult General Chief complaint: Recheck/Abnormal Lab/Rx Stated complaint: HYPERGLYCEMIA Time Seen by Provider: 07/08/24 12:39 Source: patient Mode of arrival: ambulance History of Present Illness HPI narrative: 73-year-old female presents for elevated blood sugar. She comes in from [facility] by paramedics. She was admitted here 2 days ago with a blood sugar of 1185. When she was discharged she was apparently was not placed on an insulin. The facility checked her blood sugar and it was high. She does not seem to have any physical complaints Related Data Home Medications ?Medication ?Instructions ?Recorded ?Confirmed atorvastatin 10 mg tablet 10 mg PO .QHS 09/15/23 07/08/24 levothyroxine 100 mcg tablet 100 mcg PO DAILY 09/15/23 07/08/24 venlafaxine 37.5 mg 37.5 mg PO DAILY 09/15/23 07/08/24 capsule,extended release 24 hr amantadine HCl 100 mg capsule 100 mg PO DAILY 07/06/24 07/08/24 aripiprazole 2 mg tablet 2 mg PO DAILY 07/06/24 07/08/24 cetirizine 10 mg tablet 10 mg PO DAILY 07/06/24 07/08/24 loperamide 1 mg/7.5 mL oral liquid 2 mg PO Q8H PRN loose stool 07/06/24 07/07/24 (Anti-Diarrheal (loperamide)) cholecalciferol (vitamin D3) 25 25 mcg PO DAILY 07/07/24 07/08/24 mcg (1,000 unit) tablet dextromethorphan-guaifenesin 10 10 ml PO Q4H PRN cough 07/07/24 07/07/24 mg-100 mg/5 mL oral syrup (Antitussive DM) ondansetron HCl 4 mg tablet 4 mg PO DAILY PRN nausea and 07/07/24 07/07/24 vomiting Previous Rx's ?Medication ?Instructions ?Recorded levofloxacin 500 mg tablet 500 mg PO DAILY 5 days #5 tabs 07/07/24 Allergies Allergy/AdvReac Type Severity Reaction Status Date / Time No Known Drug Allergies Allergy Verified 07/08/24 12:46 Opioid HPI Opioid Management Most Recent Opioid Data: Last Pain Scale 3 07/07/24 09:22 07/07/24 Last Pain Intensity 3 07/07/24 09:22 07/07/24 Last Pain Assessment 07/07/24 13:00 Last ORT Total Score 0 07/06/24 13:41 07/06/24 Last ORT Risk Category Low Risk 07/06/24 13:41 07/06/24 Review of Systems ROS Narrative A ten point review of systems is negative except as noted above. [facility] Medical History (Updated 07/08/24 @ 16:54 by Awais Dugan MD) Hypothyroidism ?E03.9 - Hypothyroidism, unspecified (ICD-10) Anemia ?D64.9 - Anemia, unspecified (ICD-10) Major depressive disorder ?F32.9 - Major depressive disorder, single episode, unspecified (ICD-10) Schizoaffective disorder, bipolar type ?F25.0 - Schizoaffective disorder, bipolar type (ICD-10) Muscle weakness ?M62.81 - Muscle weakness (generalized) (ICD-10) GERD (gastroesophageal reflux disease) ?K21.9 - Gastro-esophageal reflux disease without esophagitis (ICD-10) Heart failure ?I50.9 - Heart failure, unspecified (ICD-10) Hypertension ?I10 - Essential (primary) hypertension (ICD-10) Lack of coordination ?R27.9 - Unspecified lack of coordination (ICD-10) Tremor ?R25.1 - Tremor, unspecified (ICD-10) Dystonia ?G24.9 - Dystonia, unspecified (ICD-10) COPD (chronic obstructive pulmonary disease) ?J44.9 - Chronic obstructive pulmonary disease, unspecified (ICD-10) Diabetes mellitus ?E11.9 - Type 2 diabetes mellitus without complications (ICD-10) Social History Highest level of school completed/degree received: high school graduate Little interest or pleasure in doing things: not at all Feeling down, depressed, or hopeless: not at all Exam Narrative Exam Narrative: Nurses note and vital signs reviewed and patient is not hypoxic. General: The patient appears in no apparent distress. Patient is resting comfortably on cart. Skin: Warm, dry, no pallor noted. There is no rash noted. Head: Normocephalic, atraumatic Eye: Normal conjunctiva, no drainage Ears, Nose, Mouth, and Throat: oral mucosa is moist. Nares patent. Cardiovascular: Regular Rate and Rhythm Respiratory: Patient is in no distress, no accessory muscle use, lungs are clear to auscultation, no wheezing, rales or rhonchi Back: non-tender GI: Soft and nontender Musculoskeletal: The patient has no evidence of calf tenderness, no pitting edema, symmetrical pulses noted bilaterally Neurological: Awake and alert. Speech is difficult to understand due to thyroid surgery that she had years ago. Psychiatric: Cooperative Constitutional Vital Signs, click to edit/add: Last Vital Signs Temp 97.6 F 07/08/24 12:38 Pulse 115 H 07/08/24 15:43 Resp 20 07/08/24 15:43 BP 113/89 07/08/24 15:43 Pulse Ox 97 07/08/24 15:43 O2 Del Method Room Air 07/08/24 15:43 Course Vital Signs Vital signs: Vital Signs Temperature 97.6 F 07/08/24 12:38 Pulse Rate 108 H 07/08/24 12:38 Respiratory Rate 20 07/08/24 12:38 Blood Pressure 118/98 H 07/08/24 12:38 Pulse Oximetry 98 07/08/24 12:38 Oxygen Delivery Method Room Air 07/08/24 12:38 Temperature 97.6 F 07/08/24 12:38 Pulse Rate 115 H 07/08/24 15:43 Respiratory Rate 20 07/08/24 15:43 Blood Pressure 113/89 07/08/24 15:43 Pulse Oximetry 97 07/08/24 15:43 Oxygen Delivery Method Room Air 07/08/24 15:43 Medical Decision Making MDM Narrative Medical decision making narrative: Blood sugar was 599. She was given IV fluids and IV insulin and it is coming down into the lower 400 range. Acetone was negative and VBG showed a pH of 7.31. She is being admitted for blood sugar control. Findings were discussed with the patient. Differential Diagnosis Differential Diagnosis: Hyperglycemia, dehydration Lab Data Lab results reviewed: Yes I reviewed the patient's lab results Labs: Lab Results 07/08/24 07/08/24 07/08/24 Range/Units 13:22 14:40 16:24 WBC 9.2 (4.0-11.0) 10^3/uL RBC 4.46 (4.20-5.40) 10^6/uL Hgb 12.5 (12.0-16.0) g/dL Hct 39.8 (36.0-48.0) % MCV 89.2 (81.0-99.0) fL MCH 28.0 (26.7-34.0) pg MCHC 31.4 (29.9-35.2) g/dL RDW 13.8 (11.0-15.0) % Plt Count 219 (150-450) 10^3/uL MPV 10.5 (9.5-13.5) fL Neut % (Auto) 67.0 (43.0-75.0) % Lymph % (Auto) 21.3 (20.5-60.0) % Bath % (Auto) 4.7 (1.7-12.0) % Eos % (Auto) 6.7 (0.9-7.0) % Baso % (Auto) 0.1 L (0.2-2.0) % Neut # (Auto) 6.2 (1.4-6.5) 10^3/uL Lymph # (Auto) 2.0 (1.2-3.8) 10^3/uL Bath # (Auto) 0.4 (0.3-0.8) 10^3/uL Eos # (Auto) 0.6 (0.0-0.7) 10^3/uL Baso # (Auto) 0.0 (0.0-0.1) 10^3/uL Abs Immat Gran (auto) 0.02 (0.00-0.03) 10^3/uL Imm/Tot Granulo (auto) 0.2 (0.0-0.5) % VBG pH 7.315 L (7.330-7.430) VBG pCO2 38.1 L (40.0-52.0) mmHg Sodium 130 L (136-145) mmol/L Potassium 4.7 (3.5-5.1) mmol/L Chloride 98 (98-107) mmol/L Carbon Dioxide 22.6 (21.0-32.0) mmol/L Anion Gap 14.1 BUN 26.0 H (7.0-18.0) mg/dL Creatinine 1.81 H (0.55-1.02) mg/dL Est GFR ( Amer) 33 L (>=60 mL/min/1.73m^2) Est GFR (Non-Af Amer) 28 L (>=60 mL/min/1.73m^2) BUN/Creatinine Ratio 14.4 Glucose 599 H* (74-106) mg/dL Calcium 8.7 (8.5-10.1) mg/dL Acetone, Qual Negative (NEGATIVE) POC Glucose 473 H 439 H (74-106) mg/dL ECG Data Attestation: I personally reviewed and interpreted this ECG as follows: (EKG on my interpretation shows sinus rhythm with a rate of 105) Critical Care Time Critical Care Time Critical Care Time: Yes Total Critical Care Time: 40 Attestation: Due to the high probability of sudden and clinically significant deterioration in the patient's condition he/she required the highest level of my preparedness to intervene urgently I provided critical care time including documentation time, medication orders and management, reevaluation, vital sign assessment, ordering and reviewing of lab tests, ordering and reviewing of x-ray studies, and admission orders. Aggregate critical care time is 45 minutes including only time during which I was engaged in work directly related to his/her care and did not include time spent treating other patients simultaneously. Discharge Plan Discharge Chief Complaint: Recheck/Abnormal Lab/Rx Clinical Impression: Hyperglycemia Patient Disposition: Admitted as Observation Time of Disposition Decision: 16:54 Condition: Fair
[2024-07-08 13:30] LABS: Basophils Percent Auto 0.1 % (0.2-2.0); Eosinophils Absolute Auto 0.6 10^3/uL (0.0-0.7); Eosinophils Percent Auto 6.7 % (0.9-7.0); Hematocrit 39.8 % (36.0-48.0); Hemoglobin 12.5 g/dL (12.0-16.0); Immature Granulocytes Abs Auto 0.02 10^3/uL (0.00-0.03); Immature Granulocytes Pct Auto 0.2 % (0.0-0.5); Lymphocytes Percent Auto 21.3 % (20.5-60.0); Mean Corpuscular HGB Conc 31.4 g/dL (29.9-35.2); Mean Corpuscular Volume 89.2 fL (81.0-99.0); Mean Platelet Volume 10.5 fL (9.5-13.5); Monocytes Absolute Auto 0.4 10^3/uL (0.3-0.8); Monocytes Percent Auto 4.7 % (1.7-12.0); Neutrophils Absolute Auto 6.2 10^3/uL (1.4-6.5); Platelet Count 219 10^3/uL (150-450); Red Blood Count 4.46 10^6/uL (4.20-5.40); Red Cell Distribution Width 13.8 % (11.0-15.0); White Blood Count 9.2 10^3/uL (4.0-11.0)
[2024-07-08] MEDS: 0.9 % SODIUM CHLORIDE 1,000 ML 1000 ML IV (13:31)
[2024-07-08 13:39] LABS: PCO2 VBG 38.1 mmHg (40.0-52.0); pH VBG 7.315 (7.330-7.430)
[2024-07-08 13:45] LABS: Acetone NEGATIVE (NEGATIVE)
[2024-07-08 13:46] LABS: Anion Gap 14.1; BUN Creatinine Ratio 14.4; Calcium 8.7 mg/dL (8.5-10.1); Carbon Dioxide 22.6 mmol/L (21.0-32.0); Chloride 98 mmol/L (98-107); Estimated GFR (African America 33 (>=60 mL/min/1.73m^2); Estimated GFR (Non-African Ame 28 (>=60 mL/min/1.73m^2); Potassium 4.7 mmol/L (3.5-5.1); Sodium 130 mmol/L (136-145)
[2024-07-08 13:49] LABS: Glucose 599 mg/dL (74-106)
[2024-07-08] MEDS: INSULIN REGULAR, HUMAN (100 UNIT/ML) 10 ML MDV 10 UNIT IV (13:59)
[2024-07-08 14:41] LABS: Glucometer 473 mg/dL (74-106)
[2024-07-08 15:43] VITALS: BP 113/89; PULSE 115; O2SAT 97
[2024-07-08 16:26] LABS: Glucometer 439 mg/dL (74-106)
--- OUTSIDE RECORDS SUMMARY | 2024-07-08 19:52 | XMS_ITS | CCD ---
Author Organization [facility] ion Partnership [facility] Care Team Providers Care Spanish Translator Name Role Phone Cayla Gamez Unavailable [facility] Primary Care Unavaila Martin Gu Attending Unavailable Elizabet Wilson Admitting Unavailable [facility] Primary Care Unavaila Isael Villatoro Attending Unavailable Isael Castro Admitting Unavailable Austin Head Consulting Unavailable [facility] Primary Care Unavaila Evert Hamlin Attending Unavailable Evert Grant Admitting Unavailable [facility] Primary Care Unavaila Fuad Jennings Attending Unavailable Fuad Pillai Admitting Unavailable Gerald Fuentes Primary Care Unavailable Amando Soto Attending Unavailable Amando Soto Admitting Unavailable DELMA NUNN Primary Care Physician DELMA NUNN Admitting Unavailable DELMA NUNN Attending Unavailable DELMA NUNN Primary Care Unavailable DELMA NUNN Admitting Unavailable DELMA NNUN Attending Unavailable DELMA NUNN Primary Care Unavailable MADHURI REZA Primary Care Unavailable FRANKO WHITE Attending Unavailable NEHA ROY Consulting Unavailable SMITA MESA Admitting Unavailable GERALD BARBER Referring Unaalexisi MADHURI Aviles Primary Care Unavailable FRANKO WHTIE Attending Unavailable FRANKO WHITE Referring Unavailable MADHURI [...] Unavailable Madhuri Reza DO Primary Care Provider [phone] Medications Current Medications Medication Drug Class(es) Dates Sig (Normalized) Sig (Original) [id number] 200 actuat albuterol 0.09 mg/actuat metered dose [...] 09/16/23 at 0900 take 1 capsule by [facility] in the morning cholecalciferol, vitamin D3, 2,000 units capsule Take 1 capsule (2,000 Units total) by mouth in the morning. Active dapagliflozin 10 mg oral tablet (3 sources) Sodium-Glucose Cotransporter 2 Inhibitor Start: 09-15-2023 End: 09-17-2023 take 10 mg by mouth once daily 10 mg, oral, Daily, First dose on 09/15/23 at 2014 docusate sodium 50 mg / sennosides, retirement 8.6 mg oral tablet (1 source) Start: [...] Test Name Value Interpretation Reference Range Facility [facility] 05-07-2024 Albumin [Mass/Vol] 4.4 g/dL Normal 3.3-5.0 [facility] Comment on above: Performed By: #### 2 [id number] #### [facility] [address] [place] [address] Albumin/Globulin (S) [Mass conc ratio] 1.2 Normal 1.1-2.2 [facility] Comment on above: Performed By: #### 2 079702 #### [facility] [address] [place] [address] ALP [Catalytic activity/Vol] 94 Int._Unit/L Normal 21-98 [facility] Comment on above: Performed By: #### 2 236085 #### [facility] [address] [place] [address] ALT No additional P-5'-P [Catalytic activity/Vol] 15 Int._Unit/L Normal 6-46 [facility] Comment on above: Performed By: #### 2 646605 #### [facility] [address] [place] [address] Anion gap [Moles/Vol] 10 mmol/L Normal 6-16 [facility] Comment on above: Performed By: #### 2 558578 #### [facility] [address] [place] [address] AST [Catalytic activity/Vol] 15 Int._Unit/L Normal 5-43 [facility] Comment on above: Performed By: #### 2 518401 #### [facility] [address] [place] [address] Bilirubin [Mass/Vol] 0.5 mg/dL Normal 0.0-1.1 [facility] Comment on above: Performed By: #### 2 208486 #### [facility] [address] [place] [address] Calcium [Mass/Vol] 9.5 mg/dL Normal 8.9-11.1 [facility] Comment on above: Performed By: #### 2 848930 #### [facility] [address] [place] [address] Chloride [Moles/Vol] 104 mmol/L Normal 101-111 [facility] Comment on above: Performed By: #### 2 156098 #### [facility] [address] [place] [address] CO2 [Moles/Vol] 29 mmol/L Normal 21-[address] [facility] Comment on above: Performed By: #### 2 917094 #### [facility] [address] [place] [address] Creatinine [Mass/Vol] 1.5 mg/dL High 0.5-1.3 [facility] Comment on above: Performed By: #### 2 946502 #### [facility] [address] [place] [address] Globulin (S) [Mass/Vol] 3.6 g/dL Normal 1.4-4.0 [facility] Comment on above: Performed By: #### 2 273391 #### [facility] [address] [place] [address] Glucose [Mass/Vol] 102 mg/dL Normal 55-199 [facility] Comment on above: Performed By: #### 2 105615 #### [facility] [address] [place] [address] Potassium [Moles/Vol] 4.2 mmol/L Normal 3.5-5.3 [facility] Comment on above: Performed By: #### 2 955910 #### [facility] [address] [place] [address] Protein [Mass/Vol] 8.0 g/dL High 6.0-7.8 [facility] Comment on above: Performed By: #### 2 450294 #### [facility] [address] [place] [address] Sodium [Moles/Vol] 139 mmol/L Normal 135-145 [facility] Comment on above: Performed By: #### 2 537142 #### [facility] [address] [place] [address] Urea nitrogen [Mass/Vol] 29 mg/dL High 5-21 [facility] Comment on above: Performed By: #### 2 656140 #### [facility] [address] [place] [address] Urea nitrogen/Creatinine [Mass ratio] 19 No Units Normal 10-20 [facility] Comment on above: Performed By: #### 2 451715 #### [facility] [address] [place] [id number] HhgT1zio 05-07-2024 HbA1c (Bld) [Mass fraction] 7.3 % High <=5.9 [facility] Comment on above: Performed By: #### 7 [id number] #### [facility] [address] [place] [address] T4 & TSHon 05-07-2024 T4 [Mass/Vol] 8.7 microgram/dL Normal 4.6-9.1 [facility] Comment on above: Performed By: #### 1 [id number] #### [facility] [address] [place] [address] TSH Qn 9.74 m[IU]/L High 0.34-5.60 [facility] Comment on above: Performed By: #### 1 0266093 #### [facility] [address] [place] [address] eGFRon 05-07-2024 eGFR 37 mL/min/1.73 m2 Low >=59 [facility] Comment on above: Performed By: #### 1 [id number] #### [facility] [address] [place], [place] [address] Body Fluid cell count with d ifferentialon 09-17-2023 Appearance (Body fld) CLEAR [facility] Color (Body fld) COLORLESS [facility] Laboratory comment Ton (Report) Interpretati on-------- [facility] Comment on above: Reference values for this fluid type are undefined, as fluid accumulation is considered abnormal. ASSORTED LINING CELLS PRESENT Macrophages (Body fld) [#/Vol] 2 % [facility] Neutrophils/100 WBC (Body fld) 98 % [facility] Nucleated RBC (Body fld) [#/Vol] 41 /uL [facility] RBC (Body fld) [#/Vol] 0.001 10*3/uL [facility] Specimen type Nom (Spec) BRONCHOALVEOLAR LAVAGE [facility] Comment on above: LUNG RT MIDDLE LOBE [facility] FL SWALLOW MOTILITY FUNCTION on 09-17-2023 [...] Brian Baker MD on 09/17/2023 9:06 AM [facility] RF videography Hypopharynx a nd Esophagus [...] Brian Baker MD on 09/17/2023 9:06 AM [facility] Radiology Study observation (narrative) [facility] [employer] RF videography Hypopharynx a nd Esophagus ViewsOrdered By: Brian Baker on 09-17-2023 [facility] Work Phone: AFB CULTURE(CONCENTRATED)on 09-16-2023 Mycobacterium sp identified Org specific cx Nom (Unsp spec) AFB SMEAR NO ACID FAST BACILLI (CONCENTRATED SMEAR) CULTURE RESULTS NO ACID FAST BACILLI ISOLATED IN 8 WEEKS Normal [facility] Comment on above: Performed By: #### 3 3-, 44674-4, CBCA, 46321-7, CMP, THYR, 27860-6, PINR #### [facility] ([id number]) [address] [place] [address] AND DIFFon 2023 BODY FLUID COMMENT Interpreta ti on-------- Normal [facility] Comment on above: Result Comment: Refe rence values for this fluid type are undefined, as fluid accumulation is considered abnormal. ASSORTED LINING CELLS PRESENT Performed By: #### 3 3-, 74080-2, CBCA, 88796-0, CMP, THYR, 55014-0, PINR #### [facility] ([id number]) [address] [place] [address] FLUID CLARITY CLEAR Normal [facility] Comment on above: Performed By: #### 3 2132-1, 91880-4, CBCA, 16655-2, CMP, THYR, 29084-3, PINR #### [facility] ([id number]) [address], [address] [place] [address] FLUID COLOR COLORLESS Normal [facility] Comment on above: Performed By: #### 3 2132-, 67409-7, CBCA, 53380-1, CMP, THYR, 43171-2, PINR #### [facility] ([id number]) [address], [address] [place] [address] FLUID NEUTROPHILS 98 % Normal [facility] Comment on above: Performed By: #### 3 2132-, 58688-0, CBCA, 82135-5, CMP, THYR, 09546-7, PINR #### [facility] ([id number]) [address], [address] [place] [address] 1 /uL Normal [facility] Comment on above: Performed By: #### 3 2132-, 97265-8, CBCA, 13657-6, CMP, THYR, 55959-5, PINR #### [facility] ([id number]) [address], [address] [place] [address] FLUID SPECIMEN TYPE BRONCHOALVEOLAR LAVAGE Normal [facility] Comment on above: Result Comment: LUNG RT MIDDLE LOBE Performed By: #### 3 2132-, 02509-4, CBCA, 39339-3, CMP, THYR, 89985-7, PINR #### [facility] ([id number]) [address], [address] [place] [address] MACROPHAGES 2 % Normal [facility] Comment on above: Performed By: #### 3 2132-1, 11913-6, CBCA, 32372-5, CMP, THYR, 29230-6, PINR #### [facility] ([id number]) [address] [place] [address] 41 /uL Normal [facility] Comment on above: Performed By: #### 3 2132-, 80008-2, CBCA, 89762-0, CMP, THYR, 93847-0, PINR #### [facility] ([id number]) [address] [place] [address] CBC AND AUTO DIFFon 09-16-19 24 ABSOLUTE BASOPHIL 0.0 X10E9/L Normal 0.0-0.2 [facility] Comment on above: Performed By: #### C MP, CBCA #### [facility] ([id number]) [address], [address] [place] [address] ABSOLUTE NEUTROPHIL 6.3 X10E9/L Normal 1.5-6.6 [facility] Comment on above: Performed By: #### C MP, CBCA #### [facility] ([id number]) [address], [address] [place] [address] Basophils/100 WBC (Bld) 0.3 % Normal [facility] Comment on above: Performed By: #### C MP, CBCA #### [facility] ([id number]) [address], [address] [place] [address] Eosinophils (Bld) [#/Vol] 0.5 10*3/uL High 0.0-0.4 [facility] Comment on above: Performed By: #### C MP, CBCA #### [facility] ([id number]) [address], [address] [place] [address] Eosinophils/100 WBC (Bld) 5.3 % Normal [facility] Comment on above: Performed By: #### C MP, CBCA #### [facility] ([id number]) [address] [place] [address] Erythrocyte distribution width (RBC) [Ratio] 15.1 % High 11.5-15.0 [facility] Comment on above: Performed By: #### C MP, CBCA #### [facility] ([id number]) [address] [place] [address] Hematocrit (Bld) [Volume fraction] 35.8 % Normal 35-47 [facility] Comment on above: Performed By: #### C MP, CBCA #### [facility] ([id number]) [address] [address] Hemoglobin (Bld) [Mass/Vol] 12.0 g/dL Normal 11.7-15.5 [facility] Comment on above: Performed By: #### C MP, CBCA #### [facility] ([id number]) [address] [place] [address] Lymphocytes (Bld) [#/Vol] 2.1 10*3/uL Normal 1.0-3.5 [facility] Comment on above: Performed By: #### C MP, CBCA #### [facility] ([id number]) [address] [address] Lymphocytes/100 WBC (Bld) 21.9 % Normal [facility] Comment on above: Performed By: #### C MP, CBCA #### [facility] ([id number]) [address] [place] [address] MCH (RBC) [Entitic mass] 29.5 pg Normal 27-34 [facility] Comment on above: Performed By: #### C MP, CBCA #### [facility] ([id number]) [address] [place] [address] MCHC (RBC) [Mass/Vol] 33.5 g/dL Normal 32-36 [facility] Comment on above: Performed By: #### C MP, CBCA #### [facility] ([id number]) [address], [address] [place] [address] MCV (RBC) [Entitic vol] 88 fL Normal 80-100 [facility] Comment on above: Performed By: #### C MP, CBCA #### [facility] ([id number]) [address], [address] [place] [address] Monocytes (Bld) [#/Vol] 0.8 10*3/uL Normal 0-0.9 [facility] Comment on above: Performed By: #### C MP, CBCA #### [facility] ([id number]) [address], [address] [place] [address] Monocytes/100 WBC (Bld) 7.7 % Normal [facility] Comment on above: Performed By: #### C MP, CBCA #### [facility] ([id number]) [address], [address] [place] [address] Neutrophils/100 WBC (Bld) 64.8 % Normal [facility] Comment on above: Performed By: #### C MP, CBCA #### [facility] ([id number]) [address], [address] [place] [address] Platelet mean volume (Bld) [Entitic vol] 8.0 fL Normal 7-12 [facility] Comment on above: Performed By: #### C MP, CBCA #### [facility] ([id number]) [address] [place] [address] Platelets (Bld) [#/Vol] 208 10*3/uL Normal 150-450 [facility] Comment on above: Performed By: #### C MP, CBCA #### [facility] ([id number]) [address] [place] [address] RBC COUNT 4.07 X10E12/L Normal 3.80-5.20 [facility] Comment on above: Performed By: #### C MP, CBCA #### [facility] ([id number]) [address], [address] [place] [address] WBC (Bld) [#/Vol] 9.8 10*3/uL Normal 4.0-11.0 [facility] Comment on above: Performed By: #### C MP, CBCA #### [facility] ([id number]) [address] [place] [address] CBC auto differentialon 06-0 Basophils (Bld) [#/Vol] 0.0 10*3/uL [facility] Basophils/100 WBC (Bld) 0.3 % [facility] Eosinophils (Bld) [#/Vol] 0.5 10*3/uL High [facility] Eosinophils/100 WBC (Bld) 5.3 % [facility] Erythrocyte distribution width (RBC) [Ratio] 15.1 % High 11.5 - 15.0 % [facility] Hematocrit (Bld) [Volume fraction] 35.8 % 35 - 47 % [facility] Hemoglobin (Bld) [Mass/Vol] 12.0 g/dL 11.7 - 15.5 g/dL [facility] Interpretation and review of laboratory results Abnormal [facility] Lymphocytes (Bld) [#/Vol] 2.1 10*3/uL [facility] Lymphocytes/100 WBC (Bld) 21.9 % [facility] MCH (RBC) [Entitic mass] 29.5 pg 27 - 34 pg [facility] MCHC (RBC) [Mass/Vol] 33.5 g/dL 32 - 36 g/dL [facility] MCV (RBC) [Entitic vol] 88 fL 80 - 100 fL [facility] Monocytes (Bld) [#/Vol] 0.8 10*3/uL [facility] Monocytes/100 WBC (Bld) 7.7 % [facility] Neutrophils (Bld) [#/Vol] 6.3 10*3/uL [facility] Neutrophils/100 WBC (Bld) 64.8 % [facility] Platelet mean volume (Bld) [Entitic vol] 8.0 fL 7 - 12 fL [facility] Platelets (Bld) [#/Vol] 208 10*3/uL [facility] RBC (Bld) [#/Vol] 4.07 10*6/uL [facility] WBC corrected for nucl RBC Auto (Bld) [#/Vol] 9.8 [facility] COMPREHENSIVE METABOLIC PANE Eric 09-16-2023 Albumin [Mass/Vol] 3.7 g/dL Normal 3.2-5.3 [facility] Comment on above: Performed By: #### 3 2132-1, 04495-0, CBCA, 43085-9, CMP, THYR, 46584-1, PINR #### [facility] ([id number]) [address], [address] [place] [address] ALP [Catalytic activity/Vol] 89 U/L Normal 39-130 [facility] Comment on above: Performed By: #### 3 2132-, 14788-8, CBCA, 10183-3, CMP, THYR, 66661-4, PINR #### [facility] ([id number]) [address], [address] [place] [address] ALT [Catalytic activity/Vol] 16 U/L Normal 0-31 [facility] Comment on above: Performed By: #### 3 2132-1, 71604-6, CBCA, 80054-4, CMP, THYR, 65756-1, PINR #### [facility] ([id number]) [address], [address] [place] [address] Anion gap [Moles/Vol] 8 mmol/L Normal 5-15 [facility] Comment on above: Performed By: #### 3 2132-04, 82782-8, CBCA, 76615-8, CMP, THYR, 79833-8, PINR #### [facility] ([id number]) [address], [address] [place] [address] AST [Catalytic activity/Vol] 18 U/L Normal 0-41 [facility] Comment on above: Performed By: #### 3 2132-, 82078-3, CBCA, 70187-7, CMP, THYR, 75790-2, PINR #### [facility] ([id number]) [address], [address] [place] [address] Bilirubin [Mass/Vol] 0.8 mg/dL Normal 0.3-1.2 [facility] Comment on above: Performed By: #### 3 2132-04, 65991-4, CBCA, 77986-7, CMP, THYR, 15119-1, PINR #### [facility] ([id number]) [address], [address] [place] [address] Calcium [Mass/Vol] 8.7 mg/dL Normal 8.5-10.5 [facility] Comment on above: Performed By: #### 3 2132-04, , CBCA, 56041-6, CMP, THYR, 39599-4, PINR #### [facility] ([id number]) [address] [place] [address] Chloride [Moles/Vol] 106 mmol/L Normal 98-109 [facility] Comment on above: Performed By: #### 3 2132-04, 47863-3, CBCA, 78882-5, CMP, THYR, 93668-6, PINR #### [facility] ([id number]) [address], [address] [place] [address] CO2 [Moles/Vol] 28 mmol/L Normal 22-32 [facility] Comment on above: Performed By: #### 3 2132-, , CBCA, 88315-5, CMP, THYR, 20663-5, PINR #### [facility] ([id number]) [address] [place] [address] Creatinine [Mass/Vol] 0.99 mg/dL Normal 0.40-1.00 [facility] Comment on above: Result Comment: METH OD TRACEABLE TO IDMS STANDARD Performed By: #### 3 2132-, , CBCA, 03328-0, CMP, THYR, 22521-5, PINR #### [facility] ([id number]) [address] [facility] [address] [place] [address] GFR/1.73 sq M.predicted among non-blacks MDRD (S/P/Bld) [Vol rate/Area] 61 mL/min/{1.73_m2} Normal >59 [facility] Comment on above: Result Comment: Reported eGFR is based on the CKD-EPI 2020 equation that does not use a race coefficient. Performed By: #### 3 2132-04, , CBCA, 77883-6, CMP, THYR, 05080-7, PINR #### [facility] ([id number]) [address], [address] [place] [address] Glucose [Mass/Vol] 98 mg/dL Normal 65-99 [facility] Comment on above: Performed By: #### 3 2132-04, 58619-8, CBCA, 90736-2, CMP, THYR, 76349-4, PINR #### [facility] ([id number]) [address] [place] [address] Potassium [Moles/Vol] 4.0 mmol/L Normal 3.5-5.0 [facility] Comment on above: Performed By: #### 3 2132-04, 88707-4, CBCA, 62259-6, CMP, THYR, 81407-2, PINR #### [facility] ([id number]) [address] [place] [address] Protein [Mass/Vol] 6.7 g/dL Normal 6.0-8.0 [facility] Comment on above: Performed By: #### 3 2132-1, 17327-3, CBCA, 92916-4, CMP, THYR, 68316-0, PINR #### [facility] ([id number]) [address] [place] [address] Sodium [Moles/Vol] 142 mmol/L Normal 134-146 [facility] Comment on above: Performed By: #### 3 2132-1, 63495-7, CBCA, 35575-2, CMP, THYR, 86361-6, PINR #### [facility] ([id number]) [address] [place] [address] Urea nitrogen [Mass/Vol] 22 mg/dL Normal 5-27 [facility] Comment on above: Performed By: #### 3 2132-1, 62931-3, CBCA, 99768-1, CMP, THYR, 22486-9, PINR #### [facility] ([id number]) [address] [place] [address] Comprehensive metabolic pane eric 09-16-2023 Albumin [Mass/Vol] 3.7 g/dL 3.2 - 5.3 g/dL Pr [facility] ALP [Catalytic activity/Vol] 89 U/L 39 - 130 U/L [facility] ALT No additional P-5'-P [Catalytic activity/Vol] 16 U/L 0 - 31 U/L [facility] Anion gap [Moles/Vol] 8 mmol/L 5 - 15 mmol/L [facility] AST [Catalytic activity/Vol] 18 U/L 0 - 41 U/L [facility] Bilirubin [Mass/Vol] 0.8 mg/dL 0.3 - 1 .2 mg/dL [facility] Calcium [Mass/Vol] 8.7 mg/dL 8.5 - 10. 5 mg/dL [facility] Chloride [Moles/Vol] 106 mmol/L 98 - 10 9 mmol/L [facility] CO2 [Moles/Vol] 28 mmol/L 22 - 32 mmol/L [facility] Creatinine [Mass/Vol] 0.99 mg/dL 0.40 - 1.00 mg/dL [facility] Comment on above: METHOD TRACEABLE TO [facility] STANDARD eGFR (CKD-EPI)non-race dependent 61 - PINF [facility] Comment on above: Reported eGFR is based on the CKD-EPI 2020 equation that does not use a race coefficient. Glucose [Mass/Vol] 98 mg/dL 65 - 99 mg/dL [facility] Potassium [Moles/Vol] 4.0 mmol/L 3.5 - 5.0 mmol/L [facility] Protein [Mass/Vol] 6.7 g/dL 6.0 - 8.0 g/dL [facility] Sodium [Moles/Vol] 142 mmol/L 134 - 146 mmol/L [facility] Urea nitrogen [Mass/Vol] 22 mg/dL 5 - 27 mg/dL [facility] Cytologyon 09-16-2023 Cytology Normal [facility] Comment on above: Result Comment: [facility] [address] [place] [address] Cytology Consultation Patient Name:JEANMARIE GARCIA:1950 (Age: 73)Gender:FTaken:09/16/2023eported:09/19/2023 13:24Physician(s):AMY MONTAGUE DO ([phone])Copy To:Keysha Reynoso M.D. Rec. #:[id number]: #[id number] Final Cytologic Diagnosis Lung, right middle lobe, bronchial alveolar lavage: No malignant cells identified. nxk/09/19/2023 Interpretation performed at [facility] [place] [address], License number: [id number].Electronically Signed Out By Earnest Stanford MD Clinical History Foreign body. Gross Description Received was 15 mL of clear fluid unfixed labeled as Garcia, lung, right middle lobe, bronchial alveolar lavage . CytoLyt added in lab. Specimen placed in formalin at 10:00 and had a total fixation time of 15 hours. Source of Specimen Lung, right middle lobe, bronchial alveolar lavage Cell block for Non-spooling operator (M), Level 2 H&E, Non DIRECTOR OF OUTREACH [employer] Fee Code(s): 1; 41264, 15362 FUNGAL CULTUREon 09-16-2023 Fungus identified Cx Nom (Unsp spec) FUNGAL SMEAR NO FUNGAL ELEMENTS SEEN ON CONCENTRATED SMEAR CULTURE RESULTS NO FUNGUS ISOLATED AFTER 4 WEEKS Normal [facility] Comment on above: Performed By: #### 3 3-, 30942-3, CBCA, 89324-4, CMP, THYR, 32720-8, PINR #### [facility] ([id number]) [address], [address] [place] [address] LOWER RESPIRATORY CULTUREon 09-16-2023 Bacteria identified Respiratory culture Nom (Sput) GRAM STAIN 1 to 9 WHITE BLOOD CELLS/LPF 0 to 1 SQUAMOUS EPITHELIAL CELLS/LPF 0 CILIATED EPITHELIAL CELLS/LPF NO ORGANISMS SEEN CULTURE RESULTS NO GROWTH 2 DAYS Normal [facility] Comment on above: Performed By: #### 3 3-, 29772-8, CBCA, 72839-3, CMP, THYR, 87202-5, PINR #### [facility] ([id number]) [address] [address], [address] [place] [address] RF Guidance for bronchoscopy of Cheston 09-16-2023 This order has been auto-finalized for image and report archival in PACs. *For full report details, please reach out to your physician. This image is visible to you in MyChart.* [facility] XR Chest Single viewon 09-15 Leilani Rizo DO - 09/16/2023 Procedure: Chest x-ray performed Number of views:AP portable upright History:Cough Comparison:None Findings: The heart and lungs show no acute findings, and the mediastinum and maribel are grossly negative . Impression: No acute change. Finalized by Leilani Rizo DO on 09/16/2023 8:39 AM [facility] Radiology Study observation (narrative) [facility] XR Chest Single viewOrdered By: Leilani Rizo on 09-16-2023 [facility] Work Phone: APTTon 09-15-2023 aPTT Coag (PPP) [Time] 29 s [facility] CBC AND AUTO DIFFon 09-15-19 24 ABSOLUTE BASOPHIL 0.1 X10E9/L Normal 0.0-0.2 [facility] Comment on above: Performed By: #### 3 2132-04, 04605-0, CBCA, 69962-9, CMP, THYR, 61098-0, PINR #### [facility] ([id number]) [address], [address] [place] [address] ABSOLUTE NEUTROPHIL 8.1 X10E9/L High 1.5-6.6 [facility] Comment on above: Performed By: #### 3 2132-04, , CBCA, 62947-7, CMP, THYR, 46125-3, PINR #### [facility] ([id number]) [address], [address] [place] [address] Basophils/100 WBC (Bld) 0.5 % [facility] Comment on above: Performed By: #### 3 2132-04, , CBCA, 85581-5, CMP, THYR, 09812-3, PINR #### [facility] ([id number]) [address], [address] [place] [address] Eosinophils (Bld) [#/Vol] 0.5 10*3/uL High 0.0-0.4 [facility] Comment on above: Performed By: #### 3 2132-04, , CBCA, 85405-6, CMP, THYR, 61417-3, PINR #### [facility] ([id number]) [address], [address] [place] [address] Eosinophils/100 WBC (Bld) 4.1 % Normal [facility] Comment on above: Performed By: #### 3 2132-, , CBCA, 25544-1, CMP, THYR, 40941-3, PINR #### [facility] ([id number]) [address], [facility] [address] [place] [address] Erythrocyte distribution width (RBC) [Ratio] 15.0 % Normal 11.5-15.0 [facility] Comment on above: Performed By: #### 3 2132-, , CBCA, 09880-5, CMP, THYR, 07865-8, PINR #### [facility] ([id number]) [address] [place] [address] Hematocrit (Bld) [Volume fraction] 38.0 % Normal 35-47 [facility] Comment on above: Performed By: #### 3 2132-04, , CBCA, 39788-2, CMP, THYR, 81438-2, PINR #### [facility] ([id number]) [address] [place] [address] Hemoglobin (Bld) [Mass/Vol] 12.3 g/dL Normal 11.7-15.5 [facility] Comment on above: Performed By: #### 3 2132-04, , CBCA, 54181-5, CMP, THYR, 74279-1, PINR #### [facility] ([id number]) [address], [address] [place] [address] Lymphocytes (Bld) [#/Vol] 2.5 10*3/uL Normal 1.0-3.5 [facility] Comment on above: Performed By: #### 3 2132-, 05117-0, CBCA, 91381-6, CMP, THYR, 22561-1, PINR #### [facility] ([id number]) [address], [address] [place] [address] Lymphocytes/100 WBC (Bld) 20.8 % Normal [facility] Comment on above: Performed By: #### 3 2132-, , CBCA, 27696-1, CMP, THYR, 02884-2, PINR #### [facility] ([id number]) [address], [address] [place] [address] MCH (RBC) [Entitic mass] 28.7 pg Normal 27-34 [facility] Comment on above: Performed By: #### 3 2132-04, , CBCA, 99679-7, CMP, THYR, 35331-8, PINR #### [facility] ([id number]) [address], [address] [place] [address] MCHC (RBC) [Mass/Vol] 32.5 g/dL Normal 32-36 [facility] Comment on above: Performed By: #### 3 2132-04, , CBCA, 35317-5, CMP, THYR, 01621-3, PINR #### [facility] ([id number]) [address], [address] [place] [address] MCV (RBC) [Entitic vol] 88 fL Normal 80-100 [facility] Comment on above: Performed By: #### 3 2132-, 60938-2, CBCA, 32981-8, CMP, THYR, 93499-8, PINR #### [facility] ([id number]) [address], [address] [place] [address] Monocytes (Bld) [#/Vol] 0.7 10*3/uL Normal 0-0.9 [facility] Comment on above: Performed By: #### 3 2132-, 46362-7, CBCA, 13429-5, CMP, THYR, 20829-6, PINR #### [facility] ([id number]) [address], [address] [place] [address] Monocytes/100 WBC (Bld) 6.2 % Normal [facility] Comment on above: Performed By: #### 3 2132-, 94340-2, CBCA, 89575-9, CMP, THYR, 43036-2, PINR #### [facility] ([id number]) [address], [address] [place] [address] Neutrophils/100 WBC (Bld) 68.4 % Normal [facility] Comment on above: Performed By: #### 3 2132-04, , CBCA, 66208-0, CMP, THYR, 65285-2, PINR #### [facility] ([id number]) [address], [address] [place] [address] Platelet mean volume (Bld) [Entitic vol] 8.2 fL Normal 7-12 [facility] Comment on above: Performed By: #### 3 2132-04, , CBCA, 55090-1, CMP, THYR, 27552-6, PINR #### [facility] ([id number]) [address], [address] [place] [address] Platelets (Bld) [#/Vol] 229 10*3/uL Normal 150-450 [facility] Comment on above: Performed By: #### 3 2132-, 38539-4, CBCA, 01645-1, CMP, THYR, 76659-1, PINR #### [facility] ([id number]) [address], [address] [place] [address] RBC COUNT 4.30 X10E12/L Normal 3.80-5.20 [facility] Comment on above: Performed By: #### 3 3-1, 54496-6, CBCA, 75499-4, CMP, THYR, 37049-2, PINR #### [facility] ([id number]) [address], [address] [place] [address] WBC (Bld) [#/Vol] 11.9 10*3/uL High 4.0-11.0 [facility] Comment on above: Performed By: #### 3 2132-1, 35022-0, CBCA, 26579-9, CMP, THYR, 70300-9, PINR #### [facility] ([id number]) [address] [address], [address] [place] [address] CBC auto differentialon 06-0 Basophils (Bld) [#/Vol] 0.1 10*3/uL [facility] Basophils/100 WBC (Bld) 0.5 % [facility] Eosinophils (Bld) [#/Vol] 0.5 10*3/uL High [facility] Eosinophils/100 WBC (Bld) 4.1 % [facility] Erythrocyte distribution width (RBC) [Ratio] 15.0 % 11.5 - 15.0 % [facility] Hematocrit (Bld) [Volume fraction] 38.0 % 35 - 47 % [facility] Hemoglobin (Bld) [Mass/Vol] 12.3 g/dL 11.7 - 15.5 g/dL [facility] Interpretation and review of laboratory results Abnormal [facility] Lymphocytes (Bld) [#/Vol] 2.5 10*3/uL [facility] Lymphocytes/100 WBC (Bld) 20.8 % [facility] MCH (RBC) [Entitic mass] 28.7 pg 27 - 34 pg [facility] MCHC (RBC) [Mass/Vol] 32.5 g/dL 32 - 36 g/dL [facility] MCV (RBC) [Entitic vol] 88 fL 80 - 100 fL [facility] Monocytes (Bld) [#/Vol] 0.7 10*3/uL [facility] Monocytes/100 WBC (Bld) 6.2 % [facility] Neutrophils (Bld) [#/Vol] 8.1 10*3/uL High [facility] Neutrophils/100 WBC (Bld) 68.4 % [facility] Platelet mean volume (Bld) [Entitic vol] 8.2 fL 7 - 12 fL [facility] Platelets (Bld) [#/Vol] 229 10*3/uL [facility] RBC (Bld) [#/Vol] 4.30 10*6/uL [facility] dica [facility] WBC corrected for nucl RBC Auto (Bld) [#/Vol] 11.9 High [facility] COMPREHENSIVE METABOLIC PANE Eric 09-15-2023 Albumin [Mass/Vol] 4.0 g/dL Normal 3.2-5.3 [facility] Comment on above: Performed By: #### 3 2132-1, 13463-5, CBCA, 19472-2, CMP, THYR, 40810-2, PINR #### [facility] ([id number]) [address], [address] [place] [address] ALP [Catalytic activity/Vol] 97 U/L Normal 39-130 [facility] Comment on above: Performed By: #### 3 2132-1, 29469-5, CBCA, 13618-8, CMP, THYR, 42295-5, PINR #### [facility] ([id number]) [address], [address] [place] [address] ALT [Catalytic activity/Vol] 19 U/L Normal 0-31 [facility] Comment on above: Performed By: #### 3 2132-1, 95413-2, CBCA, 13533-1, CMP, THYR, 29485-8, PINR #### [facility] ([id number]) [address], [address] [place] [address] Anion gap [Moles/Vol] 8 mmol/L Normal 5-15 [facility] Comment on above: Performed By: #### 3 2132-1, 23432-9, CBCA, 00719-2, CMP, THYR, 97182-3, PINR #### [facility] ([id number]) [address], [address] [place] [address] AST [Catalytic activity/Vol] 16 U/L Normal 0-41 [facility] Comment on above: Performed By: #### 3 2132-, 80371-7, CBCA, 78988-7, CMP, THYR, 18745-9, PINR #### [facility] ([id number]) [address], [address] [place] [address] Bilirubin [Mass/Vol] 0.4 mg/dL Normal 0.3-1.2 [facility] Comment on above: Performed By: #### 3 2132-, 50905-2, CBCA, 56592-3, CMP, THYR, 50607-8, PINR #### [facility] ([id number]) [address], [address] [place] [address] Calcium [Mass/Vol] 9.1 mg/dL Normal 8.5-10.5 [facility] Comment on above: Performed By: #### 3 2132-, 92469-7, CBCA, 37363-7, CMP, THYR, 36794-6, PINR #### [facility] ([id number]) [address], [address] [place] [address] Chloride [Moles/Vol] 105 mmol/L Normal 98-109 [facility] Comment on above: Performed By: #### 3 2132-, 80086-0, CBCA, 11841-4, CMP, THYR, 39874-5, PINR #### [facility] ([id number]) [address], [address] [place] [address] CO2 [Moles/Vol] 29 mmol/L Normal 22-32 [facility] Comment on above: Performed By: #### 3 2132-, , CBCA, 94043-0, CMP, THYR, 05135-0, PINR #### [facility] ([id number]) [address], [address] [place] [address] Creatinine [Mass/Vol] 1.04 mg/dL High 0.40-1.00 [facility] Comment on above: Result Comment: METH OD TRACEABLE TO IDMS STANDARD Performed By: #### 3 2132-04, , CBCA, 09937-6, CMP, THYR, 76179-9, PINR #### [facility] ([id number]) [address] [facility], [address] [place] [address] GFR/1.73 sq M.predicted among non-blacks MDRD (S/P/Bld) [Vol rate/Area] 57 mL/min/{1.73_m2} Low >59 [facility] Comment on above: Result Comment: Reported eGFR is based on the CKD-EPI 2020 equation that does not use a race coefficient. Performed By: #### 3 2132-04, , CBCA, 73336-7, CMP, THYR, 71594-8, PINR #### [facility] ([id number]) [address], [address] [place] [address] Glucose [Mass/Vol] 101 mg/dL High 65-99 [facility] Comment on above: Performed By: #### 3 2132-04, , CBCA, 92922-4, CMP, THYR, 53566-8, PINR #### [facility] ([id number]) [address], [address] [place] [address] Potassium [Moles/Vol] 4.1 mmol/L Normal 3.5-5.0 [facility] Comment on above: Performed By: #### 3 2132-04, , CBCA, 96803-9, CMP, THYR, 29559-4, PINR #### [facility] ([id number]) [address], [address] [place] [address] Protein [Mass/Vol] 7.5 g/dL Normal 6.0-8.0 [facility] Comment on above: Performed By: #### 3 3-1, 84196-3, CBCA, 08677-2, CMP, THYR, 56494-6, PINR #### [facility] ([id number]) [address], [address] [place] [address] Sodium [Moles/Vol] 142 mmol/L Normal 134-146 [facility] Comment on above: Performed By: #### 3 3-1, 54747-5, CBCA, 96086-7, CMP, THYR, 53206-1, PINR #### [facility] ([id number]) [address], [address] [place] [address] Urea nitrogen [Mass/Vol] 25 mg/dL Normal 5-27 [facility] Comment on above: Performed By: #### 3 2132-1, 49875-9, CBCA, 33989-8, CMP, THYR, 26767-9, PINR #### [facility] ([id number]) [address], [address] [place] [address] CT CHEST WO CONTon CT CHEST WO CONT CT CHEST WO CONT *ADDENDUM*Upon targeted retrospective review, small filling defect within bronchus intermedius, measures approximately 6 mm; can be seen with aspiration, inspissated mucous plugging, etc. Finalized by Rui Boswell MD on 09/15/2023 6:40 PM Normal [facility] CT Chest WO contraston 09-14 Addendum by Rui Boswell MD on 09/15/2023 6:40 PM EDT *ADDENDUM*Upon targeted retrospective review, small filling defect within bronchus intermedius, measures approximately 6 mm; can be seen with aspiration, inspissated mucous plugging, etc. Finalized by Rui Boswell MD on 09/15/2023 6:40 PM [facility] CLINICAL HISTORY: Aspiration pneumonia. COMPARISON: None. [...] Rui Boswell MD on 09/15/2023 5:47 PM [facility] Rui Boswell MD - 09/15/2023 [...] Rui Boswell MD on 09/15/2023 5:47 PM [facility] Radiology Study observation (narrative) [facility] CT Chest WO contrastOrdered By: Rui Boswell on 09-15-2023 [facility] Work Phone: Comprehensive metabolic pane eric 09-15-2023 Albumin [Mass/Vol] 4.0 g/dL 3.2 - 5.3 g/dL Pr [facility] ALP [Catalytic activity/Vol] 97 U/L 39 - 130 U/L [facility] ALT No additional P-5'-P [Catalytic activity/Vol] 19 U/L 0 - 31 U/L [facility] Anion gap [Moles/Vol] 8 mmol/L 5 - 15 mmol/L [facility] AST [Catalytic activity/Vol] 16 U/L 0 - 41 U/L [facility] Bilirubin [Mass/Vol] 0.4 mg/dL 0.3 - 1 .2 mg/dL [facility] Calcium [Mass/Vol] 9.1 mg/dL 8.5 - 10. 5 mg/dL [facility] Chloride [Moles/Vol] 105 mmol/L 98 - 10 9 mmol/L [facility] CO2 [Moles/Vol] 29 mmol/L 22 - 32 mmol/L [facility] Creatinine [Mass/Vol] 1.04 mg/dL High 0.40 - 1.00 mg/dL [facility] Comment on above: METHOD TRACEABLE TO IDNM STANDARD eGFR (CKD-EPI)non-race dependent 57 Low - PINF [facility] Comment on above: Reported eGFR is based on the CKD-EPI 2020 equation that does not use a race coefficient. Glucose [Mass/Vol] 101 mg/dL High 65 - 99 mg/dL [facility] Interpretation and review of laboratory results Abnormal [facility] Potassium [Moles/Vol] 4.1 mmol/L 3.5 - 5.0 mmol/L [facility] Protein [Mass/Vol] 7.5 g/dL 6.0 - 8.0 g/dL Pr [facility] Sodium [Moles/Vol] 142 mmol/L 134 - 146 mmol/L [facility] Urea nitrogen [Mass/Vol] 25 mg/dL 5 - 27 mg/dL [facility] Lactate (P andrew) [Moles/Vol]o n 09-15-2023 [facility] LACTATE W/REFLEX 0.8 mmol/L Normal 0.4-2.0 [facility] Comment on above: Result Comment: Result did not trigger repeat Lactate, re-order if needed. Performed By: #### 3 3-1, 60717-9, CBCA, 29397-8, CMP, THYR, 95587-4, PINR #### [facility] ([id number]) [address] [facility] [address], [address] [place] [address] Lactate w/ Reflexon 09-15-19 24 Lactate (P andrew) [Moles/Vol] 0.8 mmol/L 0.4 - 2.0 mmol/L [facility] Comment on above: Result did not trigger repeat Lactate, re-order if needed. MAGNESIUMon 09-15-2023 Magnesium [Mass/Vol] 2.1 mg/dL Normal 1.8-2.6 [facility] Comment on above: Performed By: #### 3 3-1, 80401-3, CBCA, 25574-6, CMP, THYR, 90437-8, PINR #### [facility] ([id number]) [address], [address] [place] [address] Magnesiumon 09-15-2023 Magnesium [Mass/Vol] 2.1 mg/dL 1.8 - 2 .6 mg/dL [facility] Natriuretic peptide B [Mass/ Vol]on 09-15-2023 Natriuretic peptide B (Bld) [Mass/Vol] 20 pg/mL NINF - 100.0 pg/mL [facility] Natriuretic peptide B (Bld) [Mass/Vol] 20 pg/mL Normal <100.0 [facility] Comment on above: Performed By: #### 3 2132-1, , CBCA, 96603-9, CMP, THYR, 38833-9, PINR #### [facility] ([id number]) [address], [address] [place] [address] No Panel Informationon 09-14 [facility] PROTIME AND INRon 09-15-2023 INR Coag (PPP) [Relative time] 1.0 {INR} Normal 0.8-1.1 [facility] Comment on above: Performed By: #### 3 2132-1, 72787-0, CBCA, 07334-2, CMP, THYR, 56432-3, PINR #### [facility] ([id number]) [address], [address] [place] [address] PT Coag (PPP) [Time] 11.5 s Normal 9.8-13.2 [facility] Comment on above: Performed By: #### 3 2132-1, 80405-0, CBCA, 10432-7, CMP, THYR, 40933-2, PINR #### [facility] ([id number]) [address] [facility], [address] [place] [address] Protime & INRon 09-15-2023 INR Coag (PPP) [Relative time] 1.0 {INR} [facility] PT Coag (PPP) [Time] 11.5 s [facility] THYROID PROFILEon 09-15-2023 Free T4 [Mass/Vol] 0.84 ng/dL Normal 0.61-1.60 [facility] Comment on above: Performed By: #### 3 2132-04, , CBCA, 14520-4, CMP, THYR, 58027-1, PINR #### [facility] ([id number]) [address] [facility], [address] [place] [address] TSH 1.26 uIU/mL Normal 0.49-4.67 [facility] Comment on above: Performed By: #### 3 2132-04, , CBCA, 28024-1, CMP, THYR, 72884-8, PINR #### [facility] ([id number]) [address] [facility], [address] [place] [address] Thyroid profile includes TSH FT4on 09-15-2023 Free T4 [Mass/Vol] 0.84 ng/dL 0.61 - 1. 60 ng/dL [facility] TSH Qn 1.26 m[IU]/L [facility] aPTT Coag (PPP) [Time]on aPTT Coag (Bld) [Time] 29 s Normal 26-37 [facility] Comment on above: Performed By: #### 3 2132-04, , CBCA, 81024-4, CMP, THYR, 93503-9, PINR #### [facility] ([id number]) [address] [facility], [address] [place] [address] CMPon 08-31-2023 Albumin [Mass/Vol] 4.1 g/dL Normal 3.3-5.0 [facility] Comment on above: Performed By: #### 2 997753 #### [facility] [address] [place] [address] Albumin/Globulin (S) [Mass conc ratio] 1.3 Normal 1.1-2.2 [facility] Comment on above: Performed By: #### 2 054148 #### [facility] [address] [place] [address] ALP [Catalytic activity/Vol] 98 Int._Unit/L Normal 21-98 [facility] Comment on above: Performed By: #### 2 753417 #### [facility] [address] [place] [address] ALT No additional P-5'-P [Catalytic activity/Vol] 14 Int._Unit/L Normal 6-46 [facility] Comment on above: Performed By: #### 2 039634 #### [facility] [address] [place] [address] Anion gap [Moles/Vol] 9 mmol/L Normal 6-16 [facility] Comment on above: Performed By: #### 2 965940 #### [facility] [address] [place] [address] AST [Catalytic activity/Vol] 15 Int._Unit/L Normal 5-43 [facility] Comment on above: Performed By: #### 2 490892 #### [facility] [address] [place] [address] Bilirubin [Mass/Vol] 0.5 mg/dL Normal 0.0-1.1 [facility] Comment on above: Performed By: #### 2 062475 #### [facility] [address] [place] [address] Calcium [Mass/Vol] 8.7 mg/dL Low 8.9-11.1 [facility] Comment on above: Performed By: #### 2 949968 #### [facility] [address] [place] [address] Chloride [Moles/Vol] 109 mmol/L Normal 101-111 [facility] Comment on above: Performed By: #### 2 694502 #### [facility] [address] [place] [address] CO2 [Moles/Vol] 28 mmol/L Normal 21-[address] [facility] Comment on above: Performed By: #### 2 752795 #### [facility] [address] [place] [address] Creatinine [Mass/Vol] 1.1 mg/dL Normal 0.5-1.3 [facility] Comment on above: Performed By: #### 2 260713 #### [facility] [address] [place] [address] Globulin (S) [Mass/Vol] 3.1 g/dL Normal 1.4-4.0 [facility] Comment on above: Performed By: #### 2 575776 #### [facility] [address] [place] [address] Glucose [Mass/Vol] 64 mg/dL Normal 55-199 [facility] Comment on above: Performed By: #### 2 875412 #### [facility] [address] [place] [address] Potassium [Moles/Vol] 4.1 mmol/L Normal 3.5-5.3 [facility] Comment on above: Performed By: #### 2 643426 #### [facility] [address] [place] [address] Protein [Mass/Vol] 7.2 g/dL Normal 6.0-7.8 [facility] Comment on above: Performed By: #### 2 088013 #### [facility] [address] [place] [address] Sodium [Moles/Vol] 142 mmol/L Normal 135-145 [facility] Comment on above: Performed By: #### [id number] #### [facility] [address] [place] [address] Urea nitrogen [Mass/Vol] 20 mg/dL Normal 5-21 [facility] Comment on above: Performed By: #### [id number] #### [facility] [address] [place] [address] Urea nitrogen/Creatinine [Mass ratio] 18 No Units Normal 10-20 [facility] Comment on above: Performed By: #### [id number] #### [facility] [address] [place] [address] Physician Orderon 08-31-2023 Physician Order [id number] Normal [facility] T4 & TSHon 08-31-2023 TSH Qn 1.97 m[IU]/L Normal 0.34-5.60 [facility] Comment on above: Performed By: #### 1 [id number] #### [facility] [address] [place] [address] T4 [Mass/Vol] 11.4 microgram/dL High 4.6-9.1 [facility] Comment on above: Performed By: #### 1 [id number] #### [facility] [address] [place] [address] Vit B12on 08-31-2023 Cobalamin (Vitamin B12) [Mass/Vol] 231 pg/mL Normal 50-1500 [facility] Comment on above: Performed By: #### 2 [id number] #### [facility] [address] [place] [address] Vitamin D 25 Hydroxyon 08-30 25-hydroxyvitamin D3 [Mass/Vol] 48.1 ng/mL Normal 30.0-100.0 [facility] Comment on above: Performed By: #### 5 [id number] #### [facility] [address] [place] [address] eGFRon 08-31-2023 eGFR 54 mL/min/1.73 m2 Low >=59 [facility] Comment on above: Order Comment: Order added by Discern Expert. Performed By: #### 1 [id number] #### [facility] [address] [place] [address] CBC w/ Auto Diffon 4 Basophil Absolute 0.0 E9/L Normal 0.0-0.2 [facility] Comment on above: Performed By: #### 1 [id number], 8633432, 15583373, 9152767, 3230366 #### [facility] [address] [place] [address] Basophils/100 WBC (Bld) 0.2 % Normal 0.0-2.0 [facility] Comment on above: Performed By: #### 1 1393530, 5979100, 40108650, 8754498, 9395909 #### [facility] [address] [place] [address] Eos Absolute 0.7 E9/L High 0.0-0.5 [facility] Comment on above: Performed By: #### 1 4524643, 6964539, 23197386, 1777338, 1392831 #### [facility] [address] [id number] Eosinophils/100 WBC (Bld) 6.8 % Normal 0.0-8.0 [facility] Comment on above: Performed By: #### 1 7612133, 2186493, 64094431, 1506376, 9308073 #### [facility] [address] [place] [address] Erythrocyte distribution width (RBC) [Ratio] 13.8 % Normal 10.9-14.2 [facility] Comment on above: Performed By: #### 1 4535654, 6171838, 25754211, 5684493, 1489843 #### [facility] [address] [place] [address] Hematocrit (Bld) [Volume fraction] 39.0 % Normal 34.0-46.0 [facility] Comment on above: Performed By: #### 1 2281972, 8900193, 88720967, 6682187, 3985105 #### [facility] [address] [place] [address] Hemoglobin (Bld) [Mass/Vol] 12.4 g/dL Normal 12.0-16.0 [facility] Comment on above: Performed By: #### 1 9860955, 5073218, 90228590, 4974940, 1711950 #### [facility] [address] [place] [address] Lymph Absolute 2.5 E9/L Normal 1.0-4.0 [facility] Comment on above: Performed By: #### 1 9442447, 2313696, 69829629, 9359482, 0063758 #### [facility] [address] [place] [address] Lymphocytes/100 WBC (Bld) 25.9 % Normal 14.0-50.0 [facility] Comment on above: Performed By: #### 1 8240183, 3284216, 01065671, 2520619, 0492036 #### [facility] [address] [place] [address] MCH (RBC) [Entitic mass] 28.2 pg Normal 27.0-34.0 [facility] Comment on above: Performed By: #### 1 7527956, 9637451, 75256752, 1343589, 6740750 #### [facility] [address] [place] [address] MCHC (RBC) [Mass/Vol] 31.5 g/dL Normal 31.4-36.0 [facility] Comment on above: Performed By: #### 1 7437608, 7171334, 24740373, 6314415, 9704572 #### [facility] [address] [place] [address] MCV (RBC) [Entitic vol] 89.3 fL Normal 80.0-100.0 [facility] Comment on above: Performed By: #### 1 9106590, 1112179, 46415453, 4460819, 3107247 #### [facility] [address] [place] [address] [place] Absolute 0.6 E9/L Normal 0.2-1.0 [facility] Comment on above: Performed By: #### 1 8920842, 1063411, 26556482, 9749920, 9477010 #### [facility] [address] [place] [address] Monocytes/100 WBC (Bld) 6.2 % Normal 4.0-14.0 [facility] Comment on above: Performed By: #### 1 3625028, 5919562, 56533286, 6523644, 0795850 #### [facility] [address] [place] [address] Neutro Absolute 6.0 E9/L Normal 2.0-7.[address] [facility] Comment on above: Performed By: #### 1 8066270, 9764745, 49549890, 2022517, 2546767 #### [facility] [address] [place] [address] Neutro Auto 60.9 % Normal 36.0-75.0 [facility] Comment on above: Performed By: #### 1 0073096, 3299552, 08231418, 0758672, 9632754 #### [facility] [address] [place] [address] Platelet 288.0 E9/L Normal 150.0-500.0 [facility] Comment on above: Performed By: #### 1 9181726, 9142851, 62153966, 9926779, 3512831 #### [facility] [address] [place] [address] Platelet mean volume (Bld) [Entitic vol] 7.8 fL Normal 6.4-10.8 [facility] Comment on above: Performed By: #### 1 1231967, 6134048, 42554158, 2518238, 8740744 #### [facility] [address] [place] [address] RBC 4.4 E12/L Normal 4.3-5.9 [facility] Comment on above: Performed By: #### 1 6365294, 4282988, 31286510, 8726907, 4182771 #### [facility] [address] [place] [address] WBC 9.8 E9/L Normal 4.0-11.0 [facility] Comment on above: Performed By: #### 1 1838316, 9376009, 42693402, 7839727, 0429684 #### [facility] [address] [place] [address] CHEMISTRYOrdered By: SYSTEM SYSTEM on 05-31-2023 Albumin [...] 05-31-2023 Albumin [Mass/Vol] 4.0 g/dL Normal 3.3-5.0 [facility] Comment on above: Performed By: #### 1 8397179, 3101572, 97677038, 3524846, 2450220 #### [facility] [address] [place] [address] Albumin/Globulin [Mass ratio] 1.0 {ratio} Low 1.1-2.2 [facility] Comment on above: Performed By: #### 1 1399287, 9147649, 28504239, 3657052, 8040586 #### [facility] [address] [place] [address] Alk Phos 90 Int._Unit/L Normal 21-98 [facility] Comment on above: Performed By: #### 1 9084221, 2948581, 54695881, 9889397, 5855093 #### [facility] [address] [place] [address] ALT 13 Int._Unit/L Normal 6-46 [facility] Comment on above: Performed By: #### 1 9481236, 5395027, 74866637, 4338028, 9846808 #### [facility] [address] [place] [address] Anion gap [Moles/Vol] 12 mmol/L Normal 6-16 [facility] Comment on above: Performed By: #### 1 1195840, 3494308, 92493149, 3005835, 0465799 #### [facility] [address] [place] [address] AST 13 Int._Unit/L Normal 5-43 [facility] Comment on above: Performed By: #### 1 9701482, 2908352, 22018955, 8946735, 4240924 #### [facility] [address] [place] [address] Bili Total 0.4 mg/dL Normal 0.0-1.1 [facility] Comment on above: Performed By: #### 1 0198026, 6310452, 74578122, 1410537, 9857450 #### [facility] [address] [place] [address] BUN/Creat Ratio 22 No Units High 10-20 [facility] Comment on above: Performed By: #### 1 6898519, 6558861, 75080793, 8413461, 6198900 #### [facility] [address] [place] [address] Calcium [Mass/Vol] 9.6 mg/dL Normal 8.9-11.1 [facility] Comment on above: Performed By: #### 1 2680604, 9916283, 26699901, 8322917, 8189930 #### [facility] [address] [place] [address] Chloride [Moles/Vol] 105 mmol/L Normal 101-111 [facility] Comment on above: Performed By: #### 1 3503236, 1788526, 68059917, 2799984, 1453079 #### [facility] [address] [place] [address] CO2 [Moles/Vol] 29 mmol/L Normal 21-[address] [facility] Comment on above: Performed By: #### 1 2625381, 5154034, 08838213, 5246601, 9409759 #### [facility] [address] [place] [address] Creatinine [Mass/Vol] 0.9 mg/dL Normal 0.5-1.3 [facility] Comment on above: Performed By: #### 1 3646029, 2428639, 62564165, 1388012, 8538710 #### [facility] [address] [place] [address] Globulin (S) [Mass/Vol] 3.9 g/dL Normal 1.4-4.0 [facility] Comment on above: Performed By: #### 1 1611519, 0070137, 20122961, 0542526, 5571699 #### [facility] [address] [place] [address] Glucose [Mass/Vol] 72 mg/dL Normal 55-199 [facility] Comment on above: Performed By: #### 1 3465097, 6101936, 41057845, 0094483, 4619816 #### [facility] [address] [place] [address] Potassium [Moles/Vol] 4.1 mmol/L Normal 3.5-5.3 [facility] Comment on above: Performed By: #### 1 3424534, 5637232, 90786105, 1701871, 1909179 #### [facility] [address] [place] [address] Protein [Mass/Vol] 7.9 g/dL High 6.0-7.8 [facility] Comment on above: Performed By: #### 1 8086907, 5862246, 54443592, 9422453, 6935624 #### [facility] [address] [place] [address] Sodium [Moles/Vol] 142 mmol/L Normal 135-145 [facility] Comment on above: Performed By: #### 1 7106505, 5342156, 26345649, 9353475, 1947245 #### [facility] [address] [place] [address] Urea nitrogen [Mass/Vol] 20 mg/dL Normal 5-21 [facility] Comment on above: Performed By: #### 1 4796404, 8083130, 53635653, 4124984, 6483127 #### [facility] [address] [place] [address] Consent for Treatmenton 05-11 Consent for Treatment [id number]#1.0 0TIFF Normal [facility] HEMATOLOGYOrdered By: SYSTEM SYSTEM on [...] Normal 80.0 - 100.0 fL Remisol Heme [place] Absolute 0.6 E9/L Normal 0.2 - 1.0 [...] Remisol Heme Physician Orderon 05-31-2023 Physician Order [id number]#1.0 0TIFF Normal [facility] T4 & TSHon 05-31-2023 TSH Qn 0.45 m[IU]/L Normal 0.34-5.60 [facility] Comment on above: Performed By: #### 1 8154294, 9838408, 04448803, 3992656, 0117426 #### [facility] [address] [place] [address] T4 11.0 microgram/dL High 4.6-9.1 [facility] Comment on above: Performed By: #### 1 9201734, 7310641, 84852353, 9606918, 5298374 #### [facility] [address] [place] [address] Vit B12on 05-31-2023 Cobalamin (Vitamin B12) [Mass/Vol] 242 pg/mL Normal 50-1500 [facility] Comment on above: Performed By: #### 1 9404270, 0479249, 78108475, 2002652, 6814810 #### [facility] [address] [place] [address] eGFRon 05-31-2023 eGFR 68 mL/min/1.73 m2 Normal >=59 [facility] Comment on above: Order Comment: Order added by Discern Expert. Performed By: #### 1 7155997, 4103748, 52838303, 6728887, 8358427 #### [facility] [address] [place] [address] 1,25 Dihydroxy Vit D Calcitr olon 02-14-2022 1,25 Dihydroxy Vit D Calcitrol 19.4 pg/mL Low 24.8-81.5 [facility] Comment on above: Order Comment: Reaso n for Exam Vitamin D deficiency Result Comment: Perf ormed at: - [facility] [id number] [employer] Reclaiming Machine Operator: Favian Colby MD, Phone: [phone] PERFORMED BY: [facility] [address] [place] [address] PATHOLOGIST [employer] HEMANT CHÁVEZ M.D. Performed By: #### G LULS #### Point of Care testing , Complete Blood Count Auto Di ffon 02-14-2022 Basophils (Bld) [#/Vol] 0.0 10*3/uL Normal 0.0-0.2 [facility] Comment on above: Order Comment: Reaso n for Exam Essential hypertension Result Comment: PERF ORMED BY: [facility] [address] [place] [address] PATHOLOGIST [employer] HEMANT CHÁVEZ M.D. Performed By: #### G LULS #### Point of Care testing , Basophils/100 WBC (Bld) 0.2 % Normal . [facility] Comment on above: Order Comment: Reaso n for Exam Essential hypertension Performed By: #### G LULS #### Point of Care testing , Eosinophils (Bld) [#/Vol] 0.6 10*3/uL High 0.0-0.45 [facility] Comment on above: Order Comment: Reaso n for Exam Essential hypertension Performed By: #### G LULS #### Point of Care testing , Eosinophils/100 WBC (Bld) 5.7 % Normal . [facility] Comment on above: Order Comment: Reaso n for Exam Essential hypertension Performed By: #### G LULS #### Point of Care testing , Erythrocyte distribution width (RBC) [Ratio] 14.7 % Normal 11.9-15.3 [facility] Comment on above: Order Comment: Reaso n for Exam Essential hypertension Performed By: #### G LULS #### Point of Care testing , Hematocrit (Bld) [Volume fraction] 38.2 % Normal 34.0-46.4 [facility] Comment on above: Order Comment: Reaso n for Exam Essential hypertension Performed By: #### G LULS #### Point of Care testing , Hemoglobin (Bld) [Mass/Vol] 12.4 g/dL Normal 11.8-15.4 [facility] Comment on above: Order Comment: Reaso n for Exam Essential hypertension Performed By: #### G LULS #### Point of Care testing , Lymphocytes (Bld) [#/Vol] 2.9 10*3/uL Normal 1.00-4.8 [facility] Comment on above: Order Comment: Reaso n for Exam Essential hypertension Performed By: #### G LULS #### Point of Care testing , Lymphocytes/100 WBC (Bld) 28.8 % Normal . [facility] Comment on above: Order Comment: Reaso n for Exam Essential hypertension Performed By: #### G LULS #### Point of Care testing , MCH (RBC) [Entitic mass] 28.0 pg Normal 24.7-34.3 [facility] Comment on above: Order Comment: Reaso n for Exam Essential hypertension Performed By: #### G LULS #### Point of Care testing , MCV (RBC) [Entitic vol] 86.6 fL Normal 80-100 [facility] Comment on above: Order Comment: Reaso n for Exam Essential hypertension Performed By: #### G LULS #### Point of Care testing , Mean Corpuscular HGB Conc 32.4 g/dL Normal 32.0-35.0 [facility] Comment on above: Order Comment: Reaso n for Exam Essential hypertension Performed By: #### G LULS #### Point of Care testing , Monocytes (Bld) [#/Vol] 0.5 10*3/uL Normal 0.0-0.8 [facility] Comment on above: Order Comment: Reaso n for Exam Essential hypertension Performed By: #### G LULS #### Point of Care testing , Monocytes/100 WBC (Bld) 5.1 % Normal . [facility] Comment on above: Order Comment: Reaso n for Exam Essential hypertension Performed By: #### G LULS #### Point of Care testing , Neutrophils (Bld) [#/Vol] 6.1 10*3/uL Normal 1.8-7.7 [facility] Comment on above: Order Comment: Reaso n for Exam Essential hypertension Performed By: #### G LULS #### Point of Care testing , Neutrophils/100 WBC (Bld) 60.2 % Normal . [facility] Comment on above: Order Comment: Reaso n for Exam Essential hypertension Performed By: #### G LULS #### Point of Care testing , Nucleated RBC/100 WBC (Bld) [Ratio] 0.1 % Normal 0-0.5 [facility] Comment on above: Order Comment: Reaso n for Exam Essential hypertension Performed By: #### G LULS #### Point of Care testing , Platelet mean volume (Bld) [Entitic vol] 7.8 fL Normal 6.3-10.7 [facility] Comment on above: Order Comment: Reaso n for Exam Essential hypertension Performed By: #### G LULS #### Point of Care testing , Platelets (Bld) [#/Vol] 330 10*3/uL Normal 150-450 [facility] Comment on above: Order Comment: Reaso n for Exam Essential hypertension Performed By: #### G LULS #### Point of Care testing , RBC (Bld) [#/Vol] 4.41 10*6/uL Normal 3.60-5.00 [facility] Comment on above: Order Comment: Reaso n for Exam Essential hypertension Performed By: #### G LULS #### Point of Care testing , WBC (Bld) [#/Vol] 10.1 10*3/uL Normal 4.5-11.0 [facility] Comment on above: Order Comment: Reaso n for Exam Essential hypertension Performed By: #### G LULS #### Point of Care testing , Comprehensive Metabolic Pane eric 02-14-2022 Albumin [Mass/Vol] 3.8 g/dL Normal 3.2-5.5 [facility] Comment on above: Order Comment: PT FA STED 12 HRS Reason for Exam Essential hypertension Reason for Exam Vitamin B12 deficiency Reason for Exam Hypothyroidism, unspecified type Performed By: #### G LULS #### Point of Care testing , Albumin/Globulin [Mass ratio] 1.0 {ratio} Normal [facility] Comment on above: Order Comment: PT FA STED 12 HRS Reason for Exam Essential hypertension Reason for Exam Vitamin B12 deficiency Reason for Exam Hypothyroidism, unspecified type Performed By: #### G LULS #### Point of Care testing , ALP [Catalytic activity/Vol] 109 U/L High 32-92 [facility] Comment on above: Order Comment: PT FA STED 12 HRS Reason for Exam Essential hypertension Reason for Exam Vitamin B12 deficiency Reason for Exam Hypothyroidism, unspecified type Performed By: #### G LULS #### Point of Care testing , ALT [Catalytic activity/Vol] 14 U/L Normal 10-60 [facility] Comment on above: Order Comment: PT FA STED 12 HRS Reason for Exam Essential hypertension Reason for Exam Vitamin B12 deficiency Reason for Exam Hypothyroidism, unspecified type Performed By: #### G LULS #### Point of Care testing , Anion gap [Moles/Vol] 12.1 mmol/L Normal 6.0-15.0 [facility] Comment on above: Order Comment: PT FA STED 12 HRS Reason for Exam Essential hypertension Reason for Exam Vitamin B12 deficiency Reason for Exam Hypothyroidism, unspecified type Performed By: #### G LULS #### Point of Care testing , AST [Catalytic activity/Vol] 15 U/L Normal 10-42 [facility] Comment on above: Order Comment: PT FA STED 12 HRS Reason for Exam Essential hypertension Reason for Exam Vitamin B12 deficiency Reason for Exam Hypothyroidism, unspecified type Performed By: #### G LULS #### Point of Care testing , Bilirubin [Mass/Vol] 0.7 mg/dL Normal 0.3-1.2 [facility] Comment on above: Order Comment: PT FA STED 12 HRS Reason for Exam Essential hypertension Reason for Exam Vitamin B12 deficiency Reason for Exam Hypothyroidism, unspecified type Performed By: #### G LULS #### Point of Care testing , Calcium [Mass/Vol] 9.3 mg/dL Normal 8.2-10.2 [facility] Comment on above: Order Comment: PT FA STED 12 HRS Reason for Exam Essential hypertension Reason for Exam Vitamin B12 deficiency Reason for Exam Hypothyroidism, unspecified type Performed By: #### G LULS #### Point of Care testing , Chloride [Moles/Vol] 103 mmol/L Normal 95-114 [facility] Comment on above: Order Comment: PT FA STED 12 HRS Reason for Exam Essential hypertension Reason for Exam Vitamin B12 deficiency Reason for Exam Hypothyroidism, unspecified type Performed By: #### G LULS #### Point of Care testing , CO2 [Moles/Vol] 28.0 mmol/L Normal 22.0-30.0 [facility] Comment on above: Order Comment: PT FA STED 12 HRS Reason for Exam Essential hypertension Reason for Exam Vitamin B12 deficiency Reason for Exam Hypothyroidism, unspecified type Performed By: #### G LULS #### Point of Care testing , Creatinine [Mass/Vol] 0.94 mg/dL Normal 0.44-1.03 [facility] Comment on above: Order Comment: PT FA STED 12 HRS Reason for Exam Essential hypertension Reason for Exam Vitamin B12 deficiency Reason for Exam Hypothyroidism, unspecified type Performed By: #### G LULS #### Point of Care testing , Estimated GFR ( Roseline > 60 [facility] Comment on above: Order Comment: PT [...] testing , Estimated GFR (Non- Am 59 [facility] Comment on above: Order Comment: PT FA STED 12 HRS Reason for Exam Essential hypertension Reason for Exam Vitamin B12 deficiency Reason for Exam Hypothyroidism, unspecified type Performed By: #### G LULS #### Point of Care testing , Globulin (S) [Mass/Vol] 3.7 g/dL [facility] Comment on above: Order Comment: PT FA STED 12 HRS Reason for Exam Essential hypertension Reason for Exam Vitamin B12 deficiency Reason for Exam Hypothyroidism, unspecified type Performed By: #### G LULS #### Point of Care testing , Glucose [Mass/Vol] 103 mg/dL High 70-100 [facility] Comment on above: Order Comment: PT FA STED 12 HRS Reason for Exam Essential hypertension Reason for Exam Vitamin B12 deficiency Reason for Exam Hypothyroidism, unspecified type Result Comment: [place] Glucose Reference Range is dependent on time and content of last meal. Glucose of more than 200 mg/dL in a nonstressed, ambulatory subject supports the diagnosis of Diabetes Mellitus. ADA recommended reference range Performed By: #### G LULS #### Point of Care testing , Potassium [Moles/Vol] 4.1 mmol/L Normal 3.5-5.1 [facility] Comment on above: Order Comment: PT FA STED 12 HRS Reason for Exam Essential hypertension Reason for Exam Vitamin B12 deficiency Reason for Exam Hypothyroidism, unspecified type Performed By: #### G LULS #### Point of Care testing , Protein [Mass/Vol] 7.5 g/dL Normal 6.1-7.9 [facility] Comment on above: Order Comment: PT FA STED 12 HRS Reason for Exam Essential hypertension Reason for Exam Vitamin B12 deficiency Reason for Exam Hypothyroidism, unspecified type Performed By: #### G LULS #### Point of Care testing , Sodium [Moles/Vol] 139 mmol/L Normal 136-146 [facility] Comment on above: Order Comment: PT FA STED 12 HRS Reason for Exam Essential hypertension Reason for Exam Vitamin B12 deficiency Reason for Exam Hypothyroidism, unspecified type Performed By: #### G LULS #### Point of Care testing , Urea nitrogen [Mass/Vol] 19 mg/dL Normal 9-23 [facility] Comment on above: Order Comment: PT FA STED 12 HRS Reason for Exam Essential hypertension Reason for Exam Vitamin B12 deficiency Reason for Exam Hypothyroidism, unspecified type Performed By: #### G LULS #### Point of Care testing , Lipid Panelon 02-14-2022 Cholesterol [Mass/Vol] 134 mg/dL Low 140-200 [facility] Comment on above: Order Comment: PT FA [...] in HDL [Mass/Vol] 44 mg/dL Normal 35-85 [facility] Comment on above: Order Comment: PT FA [...] HDL [Mass ratio] 3.0 {ratio} Normal <5.0 [facility] Comment on above: Order Comment: PT FA STED 12 HRS Reason for Exam Essential hypertension Reason for Exam Vitamin B12 deficiency Reason for Exam Hypothyroidism, unspecified type Performed By: #### G LULS #### Point of Care testing , LDL Cholesterol,Calculat ed 73 mg/dL Normal 0-100 [facility] Comment on above: Order Comment: PT FA [...] , Triglyceride w/Reflex 85 mg/dL Normal 35-149 [facility] Comment on above: Order Comment: PT FA [...] testing , VLDL CHOLESTEROL 17 mg/dL Normal [facility] Comment on above: Order Comment: PT FA STED 12 HRS Reason for Exam Essential hypertension Reason for Exam Vitamin B12 deficiency Reason for Exam Hypothyroidism, unspecified type Performed By: #### G LULS #### Point of Care testing , Thyroid Stimulating Hormoneo n 02-14-2022 TSH Qn 1.04 m[IU]/L Normal 0.45-5.33 [facility] Comment on above: Order Comment: PT FA STED 12 HRS Reason for Exam Essential hypertension Reason for Exam Vitamin B12 deficiency Reason for Exam Hypothyroidism, unspecified type Result Comment: PERF ORMED BY: [address] [place] [address] PATHOLOGIST [employer] HEMANT CHÁVEZ M.D. Performed By: #### G LULS #### Point of Care testing , Thyroxine (T4) Totalon 02-14 T4 [Mass/Vol] 13.17 ug/dL High 5.39-11.82 [facility] Comment on above: Order Comment: PT FA STED 12 HRS Reason for Exam Essential hypertension Reason for Exam Vitamin B12 deficiency Reason for Exam Hypothyroidism, unspecified type Performed By: #### G LULS #### Point of Care testing , Vitamin B12on 02-14-2022 Cobalamin (Vitamin B12) [Mass/Vol] 292 pg/mL Normal 180-914 [facility] Comment on above: Order Comment: PT FA STED 12 HRS Reason for Exam Essential hypertension Reason for Exam Vitamin B12 deficiency Reason for Exam Hypothyroidism, unspecified type Performed By: #### G LULS #### Point of Care testing , Basic Metabolic Panelon 05-3 Calcium [Mass/Vol] 8.2 mg/dL Normal 8.2-10.2 [facility] Comment on above: Performed By: #### C BC, BMP #### [facility] [address] [place] [address] [place] Chloride [Moles/Vol] 103 mmol/L Normal 95-114 [facility] Comment on above: Performed By: #### C BC, BMP #### [facility] [address] [place] [id number] [place] CO2 [Moles/Vol] 27.2 mmol/L Normal 22.0-30.0 [facility] Comment on above: Performed By: #### C BC, BMP #### [facility] [address] [place] [address] [place] Creatinine [Mass/Vol] 1.13 mg/dL High 0.44-1.03 [facility] Comment on above: Performed By: #### C BC, BMP #### [facility] [address] [place] [address] [place] Creatinine Clr Calc Pharmacy 59.74 [facility] Comment on above: Result Comment: PERF ORMED BY: [place] [address] PATHOLOGIST [employer] HEAMNT CHÁVEZ M.D. Performed By: #### C BC, BMP #### [address] Estimated GFR ( Roseline 58 [facility] Comment on above: Result Comment: GFR estimated reference range: According to KDOQI guidelines, <60 ml/min/1.73m2 is sufficient to diagnose a patient with chronic kidney disease. Performed By: #### C BC, BMP #### [address] Estimated GFR (Non- Am 48 [facility] Comment on above: Performed By: #### C BC, BMP #### [address] Glucose [Mass/Vol] 116 mg/dL High 70-100 [facility] Comment on above: Result Comment: [place] om Glucose Reference Range is dependent on time and content of last meal. Glucose of more than 200 mg/dL in a nonstressed, ambulatory subject supports the diagnosis of Diabetes Mellitus. ADA recommended reference range Performed By: #### C BC, BMP #### [place] [address] [place] Potassium [Moles/Vol] 3.2 mmol/L Low 3.5-5.1 [facility] Comment on above: Performed By: #### C BC, BMP #### [place] [address] [place] Sodium [Moles/Vol] 140 mmol/L Normal 136-146 [facility] Comment on above: Performed By: #### C BC, BMP #### [address] Urea nitrogen [Mass/Vol] 9 mg/dL Normal 9-23 [facility] Comment on above: Performed By: #### C BC, BMP #### [facility] [address] Complete Blood Count Auto Di ffon 09-06-2021 Basophils (Bld) [#/Vol] 0.0 10*3/uL Normal 0.0-0.2 [facility] Comment on above: Result Comment: PERF ORMED BY: [place] [address] PATHOLOGIST [employer] HEMANT CHÁVEZ M.D. Performed By: #### C BC, BMP #### [facility] [address] Basophils/100 WBC (Bld) 0.1 % Normal . [facility] Comment on above: Performed By: #### C BC, BMP #### [facility] [address] Eosinophils (Bld) [#/Vol] 0.2 10*3/uL Normal 0.0-0.45 [facility] Comment on above: Performed By: #### C BC, BMP #### [place] [address] [place] Eosinophils/100 WBC (Bld) 2.3 % Normal . [facility] Comment on above: Performed By: #### C BC, BMP #### [address] Erythrocyte distribution width (RBC) [Ratio] 16.2 % High 11.9-15.3 [facility] Comment on above: Performed By: #### C BC, BMP #### [address] Hematocrit (Bld) [Volume fraction] 30.8 % Low 34.0-46.4 [facility] Comment on above: Performed By: #### C BC, BMP #### [facility] [address] Hemoglobin (Bld) [Mass/Vol] 9.8 g/dL Low 11.8-15.4 [facility] Comment on above: Performed By: #### C BC, BMP #### [facility] [address] Lymphocytes (Bld) [#/Vol] 1.8 10*3/uL Normal 1.00-4.8 [facility] Comment on above: Performed By: #### C BC, BMP #### [facility] [address] Lymphocytes/100 WBC (Bld) 18.5 % Normal . [facility] Comment on above: Performed By: #### C BC, BMP #### [facility] [address] MCH (RBC) [Entitic mass] 27.6 pg Normal 24.7-34.3 [facility] Comment on above: Performed By: #### C BC, BMP #### [address] MCV (RBC) [Entitic vol] 86.1 fL Normal 80-100 [facility] Comment on above: Performed By: #### C BC, BMP #### [address] Mean Corpuscular HGB Conc 32.0 g/dL Normal 32.0-35.0 [facility] Comment on above: Performed By: #### C BC, BMP #### [address] Monocytes (Bld) [#/Vol] 0.7 10*3/uL Normal 0.0-0.8 [facility] Comment on above: Performed By: #### C BC, BMP #### [place] [address] [place] Monocytes/100 WBC (Bld) 6.9 % Normal . [facility] Comment on above: Performed By: #### C BC, BMP #### [address] Neutrophils (Bld) [#/Vol] 7.2 10*3/uL Normal 1.8-7.7 [facility] Comment on above: Performed By: #### C BC, BMP #### [facility] [address] Neutrophils/100 WBC (Bld) 72.2 % Normal . [facility] Comment on above: Performed By: #### C BC, BMP #### [facility] [address] Nucleated RBC/100 WBC (Bld) [Ratio] 0.0 % Normal 0-0.5 [facility] Comment on above: Performed By: #### C BC, BMP #### [address] Platelet mean volume (Bld) [Entitic vol] 8.3 fL Normal 6.3-10.7 [facility] Comment on above: Performed By: #### C MARIA ELENA, BMP #### [address] Platelets (Bld) [#/Vol] 258 10*3/uL Normal 150-450 [facility] Comment on above: Performed By: #### C MARIA ELENA, BMP #### [place] [address] [place] RBC (Bld) [#/Vol] 3.57 10*6/uL Low 3.60-5.00 [facility] Comment on above: Performed By: #### C BC, BMP #### [place] [address] [place] WBC (Bld) [#/Vol] 9.9 10*3/uL Normal 4.5-11.0 [facility] Comment on above: Performed By: #### C BC, BMP #### [address] Glucose Poct Glucometerson 0 09-06-2021 Commemt1 Glu2: Cleaned Meter Normal [facility] Comment on above: Result Comment: PERF ORMED BY: [place] [address] PATHOLOGIST [employer]ER HEMANT CHÁVEZ M.D. Performed By: #### C BC, BMP #### [address] [place] [address] [place] Glucose [Mass/Vol] 126 mg/dL Normal [facility] Comment on above: Result Comment: [place] om Glucose Reference Range is dependent on time and content of last meal. Glucose of more than 200 mg/dL in a nonstressed, ambulatory subject supports the diagnosis of Diabetes Mellitus. Performed By: #### C BC, BMP #### [facility] [address] Commemt1 Glu2: Cleaned Meter Normal [facility] Comment on above: Result Comment: PERF ORMED BY: [place] [address] PATHOLOGIST [employer]ER HEMANT CHÁVEZ M.D. Performed By: #### G LULS #### Point of Care testing , Glucose [Mass/Vol] 175 mg/dL Normal [facility] Comment on above: Result Comment: [place] Glucose Reference Range is dependent on time and content of last meal. Glucose of more than 200 mg/dL in a nonstressed, ambulatory subject supports the diagnosis of Diabetes Mellitus. Performed By: #### G LULS #### Point of Care testing , Glucose [Mass/Vol] 103 mg/dL Normal [facility] Comment on above: Result Comment: [place] om Glucose Reference Range is dependent on time and content of last meal. Glucose of more than 200 mg/dL in a nonstressed, ambulatory subject supports the diagnosis of Diabetes Mellitus. PERFORMED BY: [place] [address] PATHOLOGIST [employer]ER HEMANT CHÁVEZ M.D. Performed By: #### C BC, LACTIC, HS TROP, HEPATIC, BMP, LIPASE, BHOB, T4F, TSH3 #### [facility] [address] [place] [address] [place] Glucose Poct Glucometerson 0 09-05-2021 Glucose [Mass/Vol] 150 mg/dL Normal [facility] Comment on above: Result Comment: [place] om Glucose Reference Range is dependent on time and content of last meal. Glucose of more than 200 mg/dL in a nonstressed, ambulatory subject supports the diagnosis of Diabetes Mellitus. PERFORMED BY: [facility] [address] [place] [address] PATHOLOGIST [employer]ER HEMANT CHÁVEZ M.D. Performed By: #### G LULS #### Point of Care testing , Glucose [Mass/Vol] 154 mg/dL Normal [facility] Comment on above: Result Comment: [facility] Glucose Reference Range is dependent on time and content of last meal. Glucose of more than 200 mg/dL in a nonstressed, ambulatory subject supports the diagnosis of Diabetes Mellitus. PERFORMED BY: [place] [address] PATHOLOGIST [employer]ER HEMANT CHÁVEZ M.D. Performed By: #### G LULS #### Point of Care testing , Glucose [Mass/Vol] 145 mg/dL Normal [facility] Comment on above: Result Comment: [facility] Glucose Reference Range is dependent on time and content of last meal. Glucose of more than 200 mg/dL in a nonstressed, ambulatory subject supports the diagnosis of Diabetes Mellitus. PERFORMED BY: [place] [address] PATHOLOGIST [employer]ER HEMANT CHÁVEZ M.D. Performed By: #### G LULS #### Point of Care testing , Glucose [Mass/Vol] 167 mg/dL Normal [facility] Comment on above: Result Comment: [facility] Glucose Reference Range is dependent on time and content of last meal. Glucose of more than 200 mg/dL in a nonstressed, ambulatory subject supports the diagnosis of Diabetes Mellitus. PERFORMED BY: [place] [address] PATHOLOGIST [employer]ER HEMANT CHÁVEZ M.D. Performed By: #### C BC, LACTIC, HS TROP, HEPATIC, BMP, LIPASE, BHOB, T4F, TSH3 #### [place] [id number] [facility] Basic Metabolic Panelon 05-2 Calcium [Mass/Vol] 8.2 mg/dL Normal 8.2-10.2 [facility] Comment on above: Performed By: #### C BC, BMP #### [facility] [address] [place] [address] [place] Chloride [Moles/Vol] 110 mmol/L Normal 95-114 [facility] Comment on above: Performed By: #### C BC, BMP #### [facility] [address] CO2 [Moles/Vol] 25.2 mmol/L Normal 22.0-30.0 [facility] Comment on above: Performed By: #### C BC, BMP #### [facility] [address] Creatinine [Mass/Vol] 1.23 mg/dL High 0.44-1.03 [facility] Comment on above: Performed By: #### C BC, BMP #### [address] Creatinine Clr Calc Pharmacy 54.94 [facility] Comment on above: Result Comment: PERF ORMED BY: [place] [address] PATHOLOGIST [employer] HEMANT CHÁVEZ M.D. Performed By: #### C BC, BMP #### [address] Estimated GFR ( Roseline 52 [facility] Comment on above: Result Comment: GFR estimated reference range: According to KDOQI guidelines, <60 ml/min/1.73m2 is sufficient to diagnose a patient with chronic kidney disease. Performed By: #### C BC, BMP #### [place] [address] [place] Estimated GFR (Non- Am 43 [facility] Comment on above: Performed By: #### C BC, BMP #### [address] Glucose [Mass/Vol] 136 mg/dL High 70-100 [facility] Comment on above: Result Comment: [place] Glucose Reference Range is dependent on time and content of last meal. Glucose of more than 200 mg/dL in a nonstressed, ambulatory subject supports the diagnosis of Diabetes Mellitus. ADA recommended reference range Performed By: #### C BC, BMP #### [address] Potassium [Moles/Vol] 3.3 mmol/L Low 3.5-5.1 [facility] Comment on above: Performed By: #### C BC, BMP #### [address] Sodium [Moles/Vol] 143 mmol/L Normal 136-146 [facility] Comment on above: Performed By: #### C BC, BMP #### [address] Urea nitrogen [Mass/Vol] 17 mg/dL Normal 9-23 [facility] Comment on above: Performed By: #### C BC, BMP #### [address] Complete Blood Count Auto Di ffon 09-04-2021 Basophils (Bld) [#/Vol] 0.0 10*3/uL Normal 0.0-0.2 [facility] Comment on above: Result Comment: PERF ORMED BY: [place] [address] PATHOLOGIST [employer] HEMANT CHÁVEZ M.D. Performed By: #### C BC, BMP #### [place] [address] [place] Basophils/100 WBC (Bld) 0.1 % Normal . [facility] Comment on above: Performed By: #### C BC, BMP #### [place] [address] [place] Eosinophils (Bld) [#/Vol] 0.3 10*3/uL Normal 0.0-0.45 [facility] Comment on above: Performed By: #### C BC, BMP #### [place] [address] [place] Eosinophils/100 WBC (Bld) 3.3 % Normal . [facility] Comment on above: Performed By: #### C BC, BMP #### [address] Erythrocyte distribution width (RBC) [Ratio] 16.4 % High 11.9-15.3 [facility] Comment on above: Performed By: #### C BC, BMP #### [address] Hematocrit (Bld) [Volume fraction] 30.1 % Low 34.0-46.4 [facility] Comment on above: Performed By: #### C BC, BMP #### [address] Hemoglobin (Bld) [Mass/Vol] 9.5 g/dL Low 11.8-15.4 [facility] Comment on above: Performed By: #### C BC, BMP #### [address] Lymphocytes (Bld) [#/Vol] 1.1 10*3/uL Normal 1.00-4.8 [facility] Comment on above: Performed By: #### C BC, BMP #### [address] Lymphocytes/100 WBC (Bld) 13.8 % Normal . [facility] Comment on above: Performed By: #### C BC, BMP #### [address] MCH (RBC) [Entitic mass] 27.7 pg Normal 24.7-34.3 [facility] Comment on above: Performed By: #### C BC, BMP #### [address] MCV (RBC) [Entitic vol] 87.3 fL Normal 80-100 [facility] Comment on above: Performed By: #### C BC, BMP #### [address] Mean Corpuscular HGB Conc 31.7 g/dL Low 32.0-35.0 [facility] Comment on above: Performed By: #### C BC, BMP #### [address] [place] [address] [place] Monocytes (Bld) [#/Vol] 0.6 10*3/uL Normal 0.0-0.8 [facility] Comment on above: Performed By: #### C BC, BMP #### [facility] [address] [place] [address] [place] Monocytes/100 WBC (Bld) 7.8 % Normal . [facility] Comment on above: Performed By: #### C BC, BMP #### [facility] [address] [place] [address] [place] Neutrophils (Bld) [#/Vol] 6.0 10*3/uL Normal 1.8-7.7 [facility] Comment on above: Performed By: #### C MARIA ELENA, BMP #### [place] [address] [place] Neutrophils/100 WBC (Bld) 75.0 % Normal . [facility] Comment on above: Performed By: #### C MARIA ELENA, BMP #### [facility] [address] [place] [address] [place] Nucleated RBC/100 WBC (Bld) [Ratio] 0.1 % Normal 0-0.5 [facility] Comment on above: Performed By: #### C MARIA ELENA, BMP #### [place] [address] [place] Platelet mean volume (Bld) [Entitic vol] 8.0 fL Normal 6.3-10.7 [facility] Comment on above: Performed By: #### C BC, BMP #### [facility] [address] [place] [address] [place] Platelets (Bld) [#/Vol] 236 10*3/uL Normal 150-450 [facility] Comment on above: Performed By: #### C BC, BMP #### [facility] [address] [place] [address] [place] RBC (Bld) [#/Vol] 3.45 10*6/uL Low 3.60-5.00 [facility] Comment on above: Performed By: #### C BC, BMP #### [address] [place] [address] [place] WBC (Bld) [#/Vol] 8.0 10*3/uL Normal 4.5-11.0 [facility] Comment on above: Performed By: #### C BC, BMP #### [address] Glucose Poct Glucometerson 0 09-04-2021 Glucose [Mass/Vol] 131 mg/dL Normal [facility] Comment on above: Result Comment: [place] Glucose Reference Range is dependent on time and content of last meal. Glucose of more than 200 mg/dL in a nonstressed, ambulatory subject supports the diagnosis of Diabetes Mellitus. PERFORMED BY: [place] [address] PATHOLOGIST [employer] HEMANT CHÁVEZ M.D. Performed By: #### C BC, LACTIC, HS TROP, HEPATIC, BMP, LIPASE, BHOB, T4F, TSH3 #### [address] Commemt1 Glu2: Cleaned Meter [facility] Comment on above: Result Comment: PERF ORMED BY: [place] [address] PATHOLOGIST [employer]ER HEMANT CHÁVEZ M.D. Performed By: #### G LULS #### Point of Care testing , Glucose [Mass/Vol] 170 mg/dL Normal [facility] Comment on above: Result Comment: [place] Glucose Reference Range is dependent on time and content of last meal. Glucose of more than 200 mg/dL in a nonstressed, ambulatory subject supports the diagnosis of Diabetes Mellitus. Performed By: #### G LULS #### Point of Care testing , Commemt1 Glu2: Cleaned Meter Normal [facility] Comment on above: Result Comment: PERF ORMED BY: [place] [address] PATHOLOGIST [employer]ER HEMANT CHÁVEZ M.D. Performed By: #### G LULS #### Point of Care testing , Glucose [Mass/Vol] 141 mg/dL Normal [facility] Comment on above: Result Comment: [place] om Glucose Reference Range is dependent on time and content of last meal. Glucose of more than 200 mg/dL in a nonstressed, ambulatory subject supports the diagnosis of Diabetes Mellitus. Performed By: #### G LULS #### Point of Care testing , Commemt1 Glu2: Cleaned Meter Normal [facility] Comment on above: Result Comment: PERF ORMED BY: [address] [place] [address] PATHOLOGIST [employer]ER HEMANT CHÁVEZ M.D. Performed By: #### G LULS #### Point of Care testing , Glucose [Mass/Vol] 114 mg/dL Normal [facility] Comment on above: Result Comment: [place] om Glucose Reference Range is dependent on time and content of last meal. Glucose of more than 200 mg/dL in a nonstressed, ambulatory subject supports the diagnosis of Diabetes Mellitus. Performed By: #### G LULS #### Point of Care testing , Basic Metabolic Panelon 05-2 Calcium [Mass/Vol] 8.4 mg/dL Normal 8.2-10.2 [facility] Comment on above: Performed By: #### G LULS #### Point of Care testing , Chloride [Moles/Vol] 111 mmol/L Normal 95-114 [facility] Comment on above: Performed By: #### G LULS #### Point of Care testing , CO2 [Moles/Vol] 26.2 mmol/L Normal 22.0-30.0 [facility] Comment on above: Performed By: #### G LULS #### Point of Care testing , Creatinine [Mass/Vol] 1.37 mg/dL High 0.44-1.03 [facility] Comment on above: Performed By: #### G LULS #### Point of Care testing , Creatinine Clr Calc Pharmacy 48.64 [facility] Comment on above: Result Comment: PERF ORMED BY: [facility] [address] [place] [address] PATHOLOGIST [employer] HEMANT CHÁVEZ M.D. Performed By: #### G LULS #### Point of Care testing , Estimated GFR ( Roseline 46 Normal [facility] Comment on above: Result Comment: GFR estimated reference range: According to KDOQI guidelines, <60 ml/min/1.73m2 is sufficient to diagnose a patient with chronic kidney disease. Performed By: #### G LULS #### Point of Care testing , Estimated GFR (Non- Am 38 Normal [facility] Comment on above: Performed By: #### G LULS #### Point of Care testing , Glucose [Mass/Vol] 145 mg/dL High 70-100 [facility] Comment on above: Result Comment: [place] Glucose Reference Range is dependent on time and content of last meal. Glucose of more than 200 mg/dL in a nonstressed, ambulatory subject supports the diagnosis of Diabetes Mellitus. ADA recommended reference range Performed By: #### G LULS #### Point of Care testing , Potassium [Moles/Vol] 3.2 mmol/L Low 3.5-5.1 [facility] Comment on above: Performed By: #### G LULS #### Point of Care testing , Sodium [Moles/Vol] 146 mmol/L Normal 136-146 [facility] Comment on above: Performed By: #### G LULS #### Point of Care testing , Urea nitrogen [Mass/Vol] 23 mg/dL Normal 9-23 [facility] Comment on above: Performed By: #### G LULS #### Point of Care testing , Complete Blood Count Auto Di ffon 09-03-2021 Basophils (Bld) [#/Vol] 0.0 10*3/uL Normal 0.0-0.2 [facility] Comment on above: Result Comment: PERF ORMED BY: [address] [address] PATHOLOGIST [employer] HEMANT CHÁVEZ M.D. Performed By: #### C BC, LACTIC, HS TROP, HEPATIC, BMP, LIPASE, BHOB, T4F, TSH3 #### [address] [address] [place] Basophils/100 WBC (Bld) 0.1 % Normal . [facility] Comment on above: Performed By: #### C BC, LACTIC, HS TROP, HEPATIC, BMP, LIPASE, BHOB, T4F, TSH3 #### [address] Eosinophils (Bld) [#/Vol] 0.3 10*3/uL Normal 0.0-0.45 [facility] Comment on above: Performed By: #### C BC, LACTIC, HS TROP, HEPATIC, BMP, LIPASE, BHOB, T4F, TSH3 #### [address] Eosinophils/100 WBC (Bld) 3.6 % Normal . [facility] Comment on above: Performed By: #### C BC, LACTIC, HS TROP, HEPATIC, BMP, LIPASE, BHOB, T4F, TSH3 #### [address] Erythrocyte distribution width (RBC) [Ratio] 16.2 % High 11.9-15.3 [facility] Comment on above: Performed By: #### C BC, LACTIC, HS TROP, HEPATIC, BMP, LIPASE, BHOB, T4F, TSH3 #### [address] Hematocrit (Bld) [Volume fraction] 31.9 % Low 34.0-46.4 [facility] Comment on above: Performed By: #### C BC, LACTIC, HS TROP, HEPATIC, BMP, LIPASE, BHOB, T4F, TSH3 #### [address] Hemoglobin (Bld) [Mass/Vol] 10.2 g/dL Low 11.8-15.4 [facility] Comment on above: Performed By: #### C BC, LACTIC, HS TROP, HEPATIC, BMP, LIPASE, BHOB, T4F, TSH3 #### [address] Lymphocytes (Bld) [#/Vol] 1.0 10*3/uL Normal 1.00-4.8 [facility] Comment on above: Performed By: #### C BC, LACTIC, HS TROP, HEPATIC, BMP, LIPASE, BHOB, T4F, TSH3 #### [address] Lymphocytes/100 WBC (Bld) 10.4 % Normal . [facility] Comment on above: Performed By: #### C BC, LACTIC, HS TROP, HEPATIC, BMP, LIPASE, BHOB, T4F, TSH3 #### [address] MCH (RBC) [Entitic mass] 28.0 pg Normal 24.7-34.3 [facility] Comment on above: Performed By: #### C BC, LACTIC, HS TROP, HEPATIC, BMP, LIPASE, BHOB, T4F, TSH3 #### [address] MCV (RBC) [Entitic vol] 87.6 fL Normal 80-100 [facility] Comment on above: Performed By: #### C BC, LACTIC, HS TROP, HEPATIC, BMP, LIPASE, BHOB, T4F, TSH3 #### [address] Mean Corpuscular HGB Conc 31.9 g/dL Low 32.0-35.0 [facility] Comment on above: Performed By: #### C BC, LACTIC, HS TROP, HEPATIC, BMP, LIPASE, BHOB, T4F, TSH3 #### [address] Monocytes (Bld) [#/Vol] 0.7 10*3/uL Normal 0.0-0.8 [facility] Comment on above: Performed By: #### C BC, LACTIC, HS TROP, HEPATIC, BMP, LIPASE, BHOB, T4F, TSH3 #### [address] Monocytes/100 WBC (Bld) 7.5 % Normal . [facility] Comment on above: Performed By: #### C BC, LACTIC, HS TROP, HEPATIC, BMP, LIPASE, BHOB, T4F, TSH3 #### [address] Neutrophils (Bld) [#/Vol] 7.2 10*3/uL Normal 1.8-7.7 [facility] Comment on above: Performed By: #### C BC, LACTIC, HS TROP, HEPATIC, BMP, LIPASE, BHOB, T4F, TSH3 #### [address] Neutrophils/100 WBC (Bld) 78.4 % Normal . [facility] Comment on above: Performed By: #### C BC, LACTIC, HS TROP, HEPATIC, BMP, LIPASE, BHOB, T4F, TSH3 #### [address] Nucleated RBC/100 WBC (Bld) [Ratio] 0.0 % Normal 0-0.5 [facility] Comment on above: Performed By: #### C BC, LACTIC, HS TROP, HEPATIC, BMP, LIPASE, BHOB, T4F, TSH3 #### [address] Platelet mean volume (Bld) [Entitic vol] 8.2 fL Normal 6.3-10.7 [facility] Comment on above: Performed By: #### C BC, LACTIC, HS TROP, HEPATIC, BMP, LIPASE, BHOB, T4F, TSH3 #### [address] Platelets (Bld) [#/Vol] 273 10*3/uL Normal 150-450 [facility] Comment on above: Performed By: #### C BC, LACTIC, HS TROP, HEPATIC, BMP, LIPASE, BHOB, T4F, TSH3 #### [address] RBC (Bld) [#/Vol] 3.64 10*6/uL Normal 3.60-5.00 [facility] Comment on above: Performed By: #### C BC, LACTIC, HS TROP, HEPATIC, BMP, LIPASE, BHOB, T4F, TSH3 #### [facility] [address] WBC (Bld) [#/Vol] 9.1 10*3/uL Normal 4.5-11.0 [facility] Comment on above: Performed By: #### C BC, LACTIC, HS TROP, HEPATIC, BMP, LIPASE, BHOB, T4F, TSH3 #### [facility] [address] [place] [address] [place] Glucose Poct Glucometerson 0 09-03-2021 Commemt1 Glu2: Cleaned Meter [facility] Comment on above: Result Comment: PERF ORMED BY: [place] [address] PATHOLOGIST [employer] HEMANT CHÁVEZ M.D. Performed By: #### G LULS #### Point of Care testing , Glucose [Mass/Vol] 152 mg/dL Normal [facility] Comment on above: Result Comment: [place] om Glucose Reference Range is dependent on time and content of last meal. Glucose of more than 200 mg/dL in a nonstressed, ambulatory subject supports the diagnosis of Diabetes Mellitus. Performed By: #### G LULS #### Point of Care testing , Commemt1 Glu2: Cleaned Meter [facility] Comment on above: Result Comment: PERF ORMED BY: [place] [address] PATHOLOGIST [employer] HEMANT CHÁVEZ M.D. Performed By: #### G LULS #### Point of Care testing , Glucose [Mass/Vol] 154 mg/dL Normal [facility] Comment on above: Result Comment: [place] om Glucose Reference Range is dependent on time and content of last meal. Glucose of more than 200 mg/dL in a nonstressed, ambulatory subject supports the diagnosis of Diabetes Mellitus. Performed By: #### G LULS #### Point of Care testing , Commemt1 Glu2: Cleaned Meter [facility] Comment on above: Result Comment: PERF ORMED BY: [place] [address] PATHOLOGIST [employer] HEMANT CHÁVEZ M.D. Performed By: #### G LULS #### Point of Care testing , Glucose [Mass/Vol] 128 mg/dL Normal [facility] Comment on above: Result Comment: [place] om Glucose Reference Range is dependent on time and content of last meal. Glucose of more than 200 mg/dL in a nonstressed, ambulatory subject supports the diagnosis of Diabetes Mellitus. Performed By: #### G LULS #### Point of Care testing , Glucose [Mass/Vol] 141 mg/dL Normal [facility] Comment on above: Result Comment: [place] om Glucose Reference Range is dependent on time and content of last meal. Glucose of more than 200 mg/dL in a nonstressed, ambulatory subject supports the diagnosis of Diabetes Mellitus. PERFORMED BY: [facility] [address] [place] [address] PATHOLOGIST [employer] HEMANT CHÁVEZ M.D. Performed By: #### G LULS #### Point of Care testing , A1C with Estimated Average [facility] 09-02-2021 Glucose [Mass/Vol] 126 mg/dL Normal [facility] Comment on above: Result Comment: PERF ORMED BY: [facility] [address] [place] [address] PATHOLOGIST [employer] HEMANT CHÁVEZ M.D. Performed By: #### G LULS #### Point of Care testing , HbA1c (Bld) [Mass fraction] 6.0 % High 4.3-5.6 [facility] Comment on above: Result Comment: Incr eased risk for diabetes: 5.7 - 6.4 diabetes: >6.4 glycemic control for adults with diabetes: <7.0 Performed By: #### G LULS #### Point of Care testing , Basic Metabolic Panelon 08-08 Calcium [Mass/Vol] 8.8 mg/dL Normal 8.2-10.2 [facility] Comment on above: Performed By: #### G LULS #### Point of Care testing , Chloride [Moles/Vol] 113 mmol/L Normal 95-114 [facility] Comment on above: Performed By: #### G LULS #### Point of Care testing , CO2 [Moles/Vol] 20.6 mmol/L Low 22.0-30.0 [facility] Comment on above: Performed By: #### G LULS #### Point of Care testing , Creatinine [Mass/Vol] 1.26 mg/dL High 0.44-1.03 [facility] Comment on above: Performed By: #### G LULS #### Point of Care testing , Creatinine Clr Calc Pharmacy 51.25 [facility] Comment on above: Performed By: #### G LULS #### Point of Care testing , Estimated GFR ( Roseline 51 [facility] Comment on above: Result Comment: GFR estimated reference range: According to KDOQI guidelines, <60 ml/min/1.73m2 is sufficient to diagnose a patient with chronic kidney disease. Performed By: #### G LULS #### Point of Care testing , Estimated GFR (Non- Am 42 [facility] Comment on above: Performed By: #### G LULS #### Point of Care testing , Glucose [Mass/Vol] 112 mg/dL High 70-100 [facility] Comment on above: Result Comment: [place] om Glucose Reference Range is dependent on time and content of last meal. Glucose of more than 200 mg/dL in a nonstressed, ambulatory subject supports the diagnosis of Diabetes Mellitus. ADA recommended reference range Performed By: #### G LULS #### Point of Care testing , Potassium [Moles/Vol] 3.7 mmol/L Normal 3.5-5.1 [facility] Comment on above: Performed By: #### G LULS #### Point of Care testing , Sodium [Moles/Vol] 150 mmol/L High 136-146 [facility] Comment on above: Performed By: #### G LULS #### Point of Care testing , Urea nitrogen [Mass/Vol] 31 mg/dL High 9-23 [facility] Comment on above: Performed By: #### G LULS #### Point of Care testing , Complete Blood Count Auto Di ffon 05-27-2022 Basophils (Bld) [#/Vol] 0.0 10*3/uL Normal 0.0-0.2 [facility] Comment on above: Result Comment: PERF ORMED BY: [facility] [place] [address] PATHOLOGIST [employer] HEMANT CHÁVEZ M.D. Performed By: #### G LULS #### Point of Care testing , Basophils/100 WBC (Bld) 0.1 % Normal . [facility] Comment on above: Performed By: #### G LULS #### Point of Care testing , Eosinophils (Bld) [#/Vol] 0.2 10*3/uL Normal 0.0-0.45 [facility] Comment on above: Performed By: #### G LULS #### Point of Care testing , Eosinophils/100 WBC (Bld) 1.5 % Normal . [facility] Comment on above: Performed By: #### G LULS #### Point of Care testing , Erythrocyte distribution width (RBC) [Ratio] 16.3 % High 11.9-15.3 [facility] Comment on above: Performed By: #### G LULS #### Point of Care testing , Hematocrit (Bld) [Volume fraction] 39.3 % Normal 34.0-46.4 [facility] Comment on above: Performed By: #### G LULS #### Point of Care testing , Hemoglobin (Bld) [Mass/Vol] 12.2 g/dL Normal 11.8-15.4 [facility] Comment on above: Performed By: #### G LULS #### Point of Care testing , Lymphocytes (Bld) [#/Vol] 1.1 10*3/uL Normal 1.00-4.8 [facility] Comment on above: Performed By: #### G LULS #### Point of Care testing , Lymphocytes/100 WBC (Bld) 9.0 % Normal . [facility] Comment on above: Performed By: #### G LULS #### Point of Care testing , MCH (RBC) [Entitic mass] 27.5 pg Normal 24.7-34.3 [facility] Comment on above: Performed By: #### Stan BANGURA #### Point of Care testing , MCV (RBC) [Entitic vol] 88.2 fL Normal 80-100 [facility] Comment on above: Performed By: #### Stan BANGURA #### Point of Care testing , Mean Corpuscular HGB Conc 31.2 g/dL Low 32.0-35.0 [facility] Comment on above: Performed By: #### Stan HUBBARDLS #### Point of Care testing , Monocytes (Bld) [#/Vol] 1.0 10*3/uL High 0.0-0.8 [facility] Comment on above: Performed By: #### Stan BANGURA #### Point of Care testing , Monocytes/100 WBC (Bld) 8.0 % Normal . [facility] Comment on above: Performed By: #### Stan BANGURA #### Point of Care testing , Neutrophils (Bld) [#/Vol] 9.9 10*3/uL High 1.8-7.7 [facility] Comment on above: Performed By: #### Stan BANGURA #### Point of Care testing , Neutrophils/100 WBC (Bld) 81.4 % Normal . [facility] Comment on above: Performed By: #### Stan BANGURA #### Point of Care testing , Nucleated RBC/100 WBC (Bld) [Ratio] 0.1 % Normal 0-0.5 [facility] Comment on above: Performed By: #### Stan HUBBARDLS #### Point of Care testing , Platelet mean volume (Bld) [Entitic vol] 8.0 fL Normal 6.3-10.7 [facility] Comment on above: Performed By: #### Stan BANGURA #### Point of Care testing , Platelets (Bld) [#/Vol] 291 10*3/uL Normal 150-450 [facility] Comment on above: Performed By: #### Stan BANGURA #### Point of Care testing , RBC (Bld) [#/Vol] 4.45 10*6/uL Normal 3.60-5.00 [facility] Comment on above: Performed By: #### G LULS #### Point of Care testing , WBC (Bld) [#/Vol] 12.1 10*3/uL High 4.5-11.0 [facility] Comment on above: Performed By: #### G LULS #### Point of Care testing , Glucose Poct Glucometerson 0 09-02-2021 Glucose [Mass/Vol] 124 mg/dL Normal [facility] Comment on above: Result Comment: [place] om Glucose Reference Range is dependent on time and content of last meal. Glucose of more than 200 mg/dL in a nonstressed, ambulatory subject supports the diagnosis of Diabetes Mellitus. PERFORMED BY: [address] [place] [id number] PATHOLOGIST [employer] HEMANT CHÁVEZ M.D. Performed By: #### G LULS #### Point of Care testing , Glucose [Mass/Vol] 130 mg/dL Normal [facility] Comment on above: Result Comment: [place] Glucose Reference Range is dependent on time and content of last meal. Glucose of more than 200 mg/dL in a nonstressed, ambulatory subject supports the diagnosis of Diabetes Mellitus. PERFORMED BY: [address] [place] [address] PATHOLOGIST [employer]ER HEMANT CHÁVEZ M.D. Performed By: #### G LULS #### Point of Care testing , Commemt1 Glu2: Cleaned Meter Normal [facility] Comment on above: Result Comment: PERF ORMED BY: [facility] [address] [place] [address] PATHOLOGIST [employer]ER HEMANT CHÁVEZ M.D. Performed By: #### G LULS #### Point of Care testing , Glucose [Mass/Vol] 131 mg/dL Normal [facility] Comment on above: Result Comment: [place] om Glucose Reference Range is dependent on time and content of last meal. Glucose of more than 200 mg/dL in a nonstressed, ambulatory subject supports the diagnosis of Diabetes Mellitus. Performed By: #### G LULS #### Point of Care testing , Commemt1 Glu2: Cleaned Meter Normal [facility] Comment on above: Result Comment: PERF ORMED BY: [place] [address] PATHOLOGIST [employer]ER HEMANT CHÁVEZ M.D. Performed By: #### C BC, BMP #### [address] Glucose [Mass/Vol] 107 mg/dL Normal [facility] Comment on above: Result Comment: [facility] Glucose Reference Range is dependent on time and content of last meal. Glucose of more than 200 mg/dL in a nonstressed, ambulatory subject supports the diagnosis of Diabetes Mellitus. Performed By: #### C BC, BMP #### [address] Thyroid Stimulating Hormoneo n 09-02-2021 TSH Qn 7.55 m[IU]/L High 0.45-5.33 [facility] Comment on above: Performed By: #### G LULS #### Point of Care testing , Troponin I High Sensitivityo 09-02-2021 Troponin I High Sensitivity 31 pg/mL High 0-15 [facility] Comment on above: Result Comment: PERF ORMED BY: [place] [address] PATHOLOGIST [employer] HEMANT CHÁVEZ M.D. Performed By: #### G LULS #### Point of Care testing , Vit. B12/Folate Profileon Cobalamin (Vitamin B12) [Mass/Vol] 187 pg/mL Normal 180-914 [facility] Comment on above: Performed By: #### G LULS #### Point of Care testing , Folate 9.3 ng/mL Normal >5.9 [facility] Comment on above: Result Comment: Marjorie te reference range: >5.9 ng/ml The WHO technical consultation on folate and vitamin b12 deficiencies has determined that folate concentrations less than 4 ng/ml are considered deficient. Performed By: #### G LULS #### Point of Care testing , Vitamin D 25 Hydroxy Totalon 09-02-2021 Vitamin D 25 Hydroxy Total 16.6 ng/mL Low 30-100 [facility] Comment on above: Result Comment: MIHAELA MIN D STATUS 25(OH)VITAMIN D RANGE (ng/mL) Deficient <20 Insufficient 20 to <30 Sufficient 30 to 100 Reference: Jayce MF,Arnoldo [place], Hossein DOMINIQUE, et al. Evaluation,treatment, and prevention of vitamin D deficiency; an Endocrine Society clinical practice guideline. JCEM. 2010; 96(7):1911-30. PERFORMED BY: [facility] [address] [address] PATHOLOGIST [employer]ER HEMANT CHÁVEZ M.D. Performed By: #### G LULS #### Point of Care testing , Basic Metabolic Panelon 08-08 Calcium [Mass/Vol] 8.8 mg/dL Normal 8.2-10.2 [facility] Comment on above: Performed By: #### G LULS #### Point of Care testing , Chloride [Moles/Vol] 106 mmol/L Normal 95-114 [facility] Comment on above: Performed By: #### G LULS #### Point of Care testing , CO2 [Moles/Vol] 23.9 mmol/L Normal 22.0-30.0 [facility] Comment on above: Performed By: #### G LULS #### Point of Care testing , Creatinine [Mass/Vol] 1.62 mg/dL High 0.44-1.03 [facility] Comment on above: Performed By: #### G LULS #### Point of Care testing , Creatinine Clr Calc Pharmacy 39.63 [facility] Comment on above: Performed By: #### G LULS #### Point of Care testing , Estimated GFR ( Roseline 38 [facility] Comment on above: Result Comment: GFR estimated reference range: According to KDOQI guidelines, <60 ml/min/1.73m2 is sufficient to diagnose a patient with chronic kidney disease. Performed By: #### G LULS #### Point of Care testing , Estimated GFR (Non- Am 32 Normal [facility] Comment on above: Performed By: #### G LULS #### Point of Care testing , Glucose [Mass/Vol] 158 mg/dL High 70-100 [facility] Comment on above: Result Comment: [place] Glucose Reference Range is dependent on time and content of last meal. Glucose of more than 200 mg/dL in a nonstressed, ambulatory subject supports the diagnosis of Diabetes Mellitus. ADA recommended reference range Performed By: #### G LULS #### Point of Care testing , Potassium [Moles/Vol] 3.1 mmol/L Low 3.5-5.1 [facility] Comment on above: Performed By: #### G LULS #### Point of Care testing , Sodium [Moles/Vol] 146 mmol/L Normal 136-146 [facility] Comment on above: Performed By: #### G LULS #### Point of Care testing , Urea nitrogen [Mass/Vol] 41 mg/dL High 9-23 [facility] Comment on above: Performed By: #### G LULS #### Point of Care testing , Beta Hydroxybuterateon 09-01 Beta Hydroxybuterate 2.73 mmol/L High 0.05-0.27 [facility] Comment on above: Performed By: [...] developed and its performance characteristic determined by [employer] and validated at [facility]. This test has not been FDA cleared [...] for SARS Antigen by JW PERFORMED BY: [address] [place] [address] PATHOLOGIST [employer]ER HEMANT CHÁVEZ M.D. Normal [facility] Comment on above: Performed By: #### G LULS #### Point of Care testing , COVID-19 [facility] 09-01-2021 SARS-CoV-2 (COVID-19) RNA NAILA+probe Ql (Unsp spec) Negative Normal Negative [facility] Comment on above: Order Comment: Healt hcare Worker?: Y Result Comment: Testing for SARS-CoV-2 by RT-PCR This test was developed and its performance characteristics determined by [employer] and validated at the [facility]. This test has not been FDA cleared [...] is terminated or revoked sooner. PERFORMED BY: [place] [id number] PATHOLOGIST [employer]ER HEMANT CHÁVEZ M.D. Performed By: #### G LULS #### Point of Care testing , CT abdomen pelvis w conon CT abdomen pelvis w con [facility] [place] [address] [place], [place] [id number] CT Scan Report Signed Patient: Jeanmarie Garcia MR#: [id number] : 1950 Acct:[id number] Age/Sex: 71 / F ADM Date: 09/01/21 Loc: ER Room: Type: [facility] ER Attending Dr: Ordering Provider: Delon Bahena [...] Gerson White M.D.09/01/2021 2:24 PM Dictation Location: [facility]13 Transcribed By: [facility] 09/01/21 1424 Dictated By: Gerson White DO 09/01/21 1413 Signed By: 09/01/[address] [facility] [address] head/brain wo conon 09-01 CT head/brain wo con [facility] [place] [address] [place] [address] CT Scan Report Signed Patient: Jeanmarie Garcia MR#: [id number] : 1950 Acct:[id number] Age/Sex: 71 / F ADM Date: 09/01/21 Loc: Room: [address] [place] [address] Type: ADM IN Attending Dr: Elizabet Wilson [...] Perez Jr., M.D.09/01/2021 4:50 PM Dictation Location: [place] [address] Transcribed By: [facility] 09/01/211649 Dictated By: Kana Perez Jr, MD 09/01/211644 Signed By: 09/01/211649 Normal [facility] Complete Blood Count Auto Di ffon 09-01-2021 Basophils (Bld) [#/Vol] 0.0 10*3/uL Normal 0.0-0.2 [facility] Comment on above: Result Comment: PERF ORMED BY: [place] [address] PATHOLOGIST [employer] HEMANT CHÁVEZ M.D. Performed By: #### C BC, LACTIC, HS TROP, HEPATIC, BMP, LIPASE, BHOB, T4F, TSH3 #### [address] Basophils/100 WBC (Bld) 0.3 % Normal . [facility] Comment on above: Performed By: #### C BC, LACTIC, HS TROP, HEPATIC, BMP, LIPASE, BHOB, T4F, TSH3 #### [address] Eosinophils (Bld) [#/Vol] 0.0 10*3/uL Normal 0.0-0.45 [facility] Comment on above: Performed By: #### C BC, LACTIC, HS TROP, HEPATIC, BMP, LIPASE, BHOB, T4F, TSH3 #### [address] Eosinophils/100 WBC (Bld) 0.1 % Normal . [facility] Comment on above: Performed By: #### C BC, LACTIC, HS TROP, HEPATIC, BMP, LIPASE, BHOB, T4F, TSH3 #### [address] Erythrocyte distribution width (RBC) [Ratio] 16.1 % High 11.9-15.3 [facility] Comment on above: Performed By: #### C BC, LACTIC, HS TROP, HEPATIC, BMP, LIPASE, BHOB, T4F, TSH3 #### [place] [address] [place] Hematocrit (Bld) [Volume fraction] 37.3 % Normal 34.0-46.4 [facility] Comment on above: Performed By: #### C BC, LACTIC, HS TROP, HEPATIC, BMP, LIPASE, BHOB, T4F, TSH3 #### [facility] [address] Hemoglobin (Bld) [Mass/Vol] 11.7 g/dL Low 11.8-15.4 [facility] Comment on above: Performed By: #### C BC, LACTIC, HS TROP, HEPATIC, BMP, LIPASE, BHOB, T4F, TSH3 #### [address] Lymphocytes (Bld) [#/Vol] 1.5 10*3/uL Normal 1.00-4.8 [facility] Comment on above: Performed By: #### C BC, LACTIC, HS TROP, HEPATIC, BMP, LIPASE, BHOB, T4F, TSH3 #### [address] Lymphocytes/100 WBC (Bld) 9.1 % Normal . [facility] Comment on above: Performed By: #### C BC, LACTIC, HS TROP, HEPATIC, BMP, LIPASE, BHOB, T4F, TSH3 #### [address] MCH (RBC) [Entitic mass] 27.4 pg Normal 24.7-34.3 [facility] Comment on above: Performed By: #### C BC, LACTIC, HS TROP, HEPATIC, BMP, LIPASE, BHOB, T4F, TSH3 #### [address] MCV (RBC) [Entitic vol] 87.3 fL Normal 80-100 [facility] Comment on above: Performed By: #### C BC, LACTIC, HS TROP, HEPATIC, BMP, LIPASE, BHOB, T4F, TSH3 #### [address] Mean Corpuscular HGB Conc 31.3 g/dL Low 32.0-35.0 [facility] Comment on above: Performed By: #### C BC, LACTIC, HS TROP, HEPATIC, BMP, LIPASE, BHOB, T4F, TSH3 #### [facility] [address] Monocytes (Bld) [#/Vol] 1.4 10*3/uL High 0.0-0.8 [facility] Comment on above: Performed By: #### C BC, LACTIC, HS TROP, HEPATIC, BMP, LIPASE, BHOB, T4F, TSH3 #### [facility] [address] Monocytes/100 WBC (Bld) 8.6 % Normal . [facility] Comment on above: Performed By: #### C BC, LACTIC, HS TROP, HEPATIC, BMP, LIPASE, BHOB, T4F, TSH3 #### [address] Neutrophils (Bld) [#/Vol] 13.2 10*3/uL High 1.8-7.7 [facility] Comment on above: Performed By: #### C BC, LACTIC, HS TROP, HEPATIC, BMP, LIPASE, BHOB, T4F, TSH3 #### [address] Neutrophils/100 WBC (Bld) 81.9 % Normal . [facility] Comment on above: Performed By: #### C BC, LACTIC, HS TROP, HEPATIC, BMP, LIPASE, BHOB, T4F, TSH3 #### [address] Nucleated RBC/100 WBC (Bld) [Ratio] 0.0 % Normal 0-0.5 [facility] Comment on above: Performed By: #### C BC, LACTIC, HS TROP, HEPATIC, BMP, LIPASE, BHOB, T4F, TSH3 #### [address] Platelet mean volume (Bld) [Entitic vol] 7.9 fL Normal 6.3-10.7 [facility] Comment on above: Performed By: #### C BC, LACTIC, HS TROP, HEPATIC, BMP, LIPASE, BHOB, T4F, TSH3 #### [address] Platelets (Bld) [#/Vol] 317 10*3/uL Normal 150-450 [facility] Comment on above: Performed By: #### C BC, LACTIC, HS TROP, HEPATIC, BMP, LIPASE, BHOB, T4F, TSH3 #### [address] RBC (Bld) [#/Vol] 4.27 10*6/uL Normal 3.60-5.00 [facility] Comment on above: Performed By: #### C BC, LACTIC, HS TROP, HEPATIC, BMP, LIPASE, BHOB, T4F, TSH3 #### [address] WBC (Bld) [#/Vol] 16.1 10*3/uL High 4.5-11.0 [facility] Comment on above: Performed By: #### C BC, LACTIC, HS TROP, HEPATIC, BMP, LIPASE, BHOB, T4F, TSH3 #### [address] Dipstick and Microscopicon 0 09-01-2021 Bacteria,Urine None Seen Normal None Seen [facility] Comment on above: Order Comment: Name Collection Type:: Straight Catheter Performed By: #### C BC, BMP #### [address] Hyaline Casts,Urine 20-49 High 0-1 [facility] Comment on above: Order Comment: Name Collection Type:: Straight Catheter Performed By: #### C BC, BMP #### [address] Other Casts,Urine None Seen Normal None Seen [facility] Comment on above: Order Comment: Name Collection Type:: Straight Catheter Performed By: #### C BC, BMP #### [address] RBC,Urine 3-4 Normal 0-4 [facility] Comment on above: Order Comment: Name Collection Type:: Straight Catheter Performed By: #### C BC, BMP #### [facility] [address] [place] [address] [place] Renal Epithelial Cells,Urine None Seen Normal 0-1 [facility] Comment on above: Order Comment: Name Collection Type:: Straight Catheter Performed By: #### C BC, BMP #### [facility] [address] [place] [address] [place] Squamous Epithelial Cell,Urine 20-30 High 0-2 [facility] Comment on above: Order Comment: Name Collection Type:: Straight Catheter Performed By: #### C BC, BMP #### [facility] [address] [place] [address] [place] WBC,Urine 10-19 High 0-4 [facility] Comment on above: Order Comment: Name Collection Type:: Straight Catheter Performed By: #### C BC, BMP #### [facility] [address] [place] [address] Yeast,Urine None Seen Normal None Seen [facility] Comment on above: Order Comment: Name Collection Type:: Straight Catheter Result Comment: PERF ORMED BY: [place] [address] PATHOLOGIST [employer] HEMANT CHÁVEZ M.D. Performed By: #### C BC, BMP #### [address] ECG 12 lead ECGon 09-01-2021 ECG 12 lead ECG [facility] [place] [address] [place] [address] Electrocardiograph Report Signed Patient: Jeanmarie Garcia MR#: [id number] 757 : 1950 Acct:[id number] Age/Sex: 71 / F ADM Date: 09/01/21 Loc: Room: [address] [place] [address] Type: DIS IN Attending Dr: Martin Arevalo [...] 470 ms Confirmed by Delon Bahena DO ([id number]) on 09/01/2021 7:47:06 PM Referred By: Electronically Signed By:Delon Bahena DO Transcribed By: MUS Signed By Delon Bahena DO 09/01 [facility] Free T4 (Free Thyroxine)on 0 09-01-2021 Free T4 [Mass/Vol] 0.76 ng/dL Normal 0.61-1.12 [facility] Comment on above: Performed By: #### G LULS #### Point of Care testing , Glucose Poct Glucometerson 0 09-01-2021 Commemt1 Glu2: Cleaned Meter [facility] Comment on above: Result Comment: PERF ORMED BY: [facility] [address] [place] [address] PATHOLOGIST [employer] HEMANT CHÁVEZ M.D. Performed By: #### G LULS #### Point of Care testing , Glucose [Mass/Vol] 128 mg/dL Normal [facility] Comment on above: Result Comment: [facility] Glucose Reference Range is dependent on time and content of last meal. Glucose of more than 200 mg/dL in a nonstressed, ambulatory subject supports the diagnosis of Diabetes Mellitus. Performed By: #### G LULS #### Point of Care testing , Hepatic Panelon 09-01-2021 Albumin [Mass/Vol] 2.8 g/dL Low 3.2-5.5 [facility] Comment on above: Performed By: #### G LULS #### Point of Care testing , Albumin/Globulin [Mass ratio] 0.5 {ratio} [facility] Comment on above: Performed By: #### G LULS #### Point of Care testing , ALP [Catalytic activity/Vol] 88 U/L Normal 32-92 [facility] Comment on above: Performed By: #### G LULS #### Point of Care testing , ALT [Catalytic activity/Vol] 16 U/L Normal 10-60 [facility] Comment on above: Performed By: #### G STEVIELS #### Point of Care testing , AST [Catalytic activity/Vol] 30 U/L Normal 10-42 [facility] Comment on above: Performed By: #### G STEVIELS #### Point of Care testing , Bilirubin [Mass/Vol] 1.2 mg/dL Normal 0.3-1.2 [facility] Comment on above: Performed By: #### G STEVIELS #### Point of Care testing , Bilirubin,Indirect 1.0 mg/dL Normal [facility] Comment on above: Performed By: #### G STEVIELS #### Point of Care testing , Bilirubin.indirect [Mass/Vol] 0.2 mg/dL Normal 0.0-0.4 [facility] Comment on above: Performed By: #### G WILLEM #### Point of Care testing , Globulin (S) [Mass/Vol] 5.1 g/dL Normal [facility] Comment on above: Performed By: #### G STEVIELS #### Point of Care testing , Protein [Mass/Vol] 7.9 g/dL Normal 6.1-7.9 [facility] Comment on above: Performed By: #### G STEVIELS #### Point of Care testing , Lactic Acidon 09-01-2021 Lactate [Moles/Vol] 1.5 mmol/L Normal 0.5-2.2 [facility] Comment on above: Result Comment: PERF ORMED BY: [facility] [address] [place] [address] PATHOLOGIST [employer] HEMANT CHÁVEZ M.D. Performed By: #### C BC, LACTIC, HS TROP, HEPATIC, BMP, LIPASE, BHOB, T4F, TSH3 #### [facility] [address] Lipaseon 09-01-2021 Lipase [Catalytic activity/Vol] 25.0 U/L Normal 22-51 [facility] Comment on above: Performed By: #### G LULS #### Point of Care testing , Magnesiumon 09-01-2021 Magnesium [Mass/Vol] 2.4 mg/dL Normal 1.6-2.6 [facility] Comment on above: Order Comment: Comme nt add on to prior labs Result Comment: PERF ORMED BY: [place] [address] PATHOLOGIST [employer] HEMANT CHÁVEZ M.D. Performed By: #### C BC, LACTIC, HS TROP, HEPATIC, BMP, LIPASE, BHOB, T4F, TSH3 #### [address] Holley Ag Negativeon 09-02-19 Holley Ag Negative Negative Normal Negative [facility] Comment on above: Result Comment: This is a duplicate Holley SARS Antigen (JW) result to be used for statistical tracking purpose only. PERFORMED BY: [place] [address] PATHOLOGIST [employer] HEMANT CHÁVEZ M.D. Performed By: #### G LULS #### Point of Care testing , Thyroid Stimulating Hormoneo n 09-01-2021 TSH Qn 3.09 m[IU]/L Normal 0.45-5.33 [facility] Comment on above: Result Comment: PERF ORMED BY: [place] [address] PATHOLOGIST [employer] HEMANT CHÁVEZ M.D. Performed By: #### G LULS #### Point of Care testing , Troponin I High Sensitivityo n 09-01-2021 Troponin I High Sensitivity 29 pg/mL High 0-15 [facility] Comment on above: Result Comment: PERF ORMED BY: [place] [address] PATHOLOGIST [employer] HEMANT CHÁVEZ M.D. Performed By: #### G LULS #### Point of Care testing , Troponin I High Sensitivity 25 pg/mL High 0-15 [facility] Comment on above: Result Comment: PERF ORMED BY: [place] [address] PATHOLOGIST [employer] HEMANT CHÁVEZ M.D. Performed By: #### C BC, LACTIC, HS TROP, HEPATIC, BMP, LIPASE, BHOB, T4F, TSH3 #### [facility] [address] [place] [address] [place] Urinalysison 09-01-2021 Appearance (U) Cloudy Critically abnormal Clear [facility] Comment on above: Order Comment: Name Collection Type:: Straight Catheter Performed By: #### C BC, BMP #### [address] Bilirubin,Urine Negative Normal Negative [facility] Comment on above: Order Comment: Name Collection Type:: Straight Catheter Performed By: #### C BC, BMP #### [address] Color (U) Yellow Normal Yellow [facility] Comment on above: Order Comment: Name Collection Type:: Straight Catheter Performed By: #### C BC, BMP #### [address] Glucose Ql (U) Normal Normal Normal [facility] Comment on above: Order Comment: Name Collection Type:: Straight Catheter Performed By: #### C BC, BMP #### [address] Ketones Ql (U) 1+ High Negative [facility] Comment on above: Order Comment: Name Collection Type:: Straight Catheter Performed By: #### C BC, BMP #### [facility] [address] [place] [address] Leukocyte esterase Test strip Ql (U) Negative Normal Negative [facility] Comment on above: Order Comment: Name Collection Type:: Straight Catheter Performed By: #### C BC, BMP #### [facility] [address] [place] [address] [place] Nitrite,Urine Negative Normal Negative [facility] Comment on above: Order Comment: Name Collection Type:: Straight Catheter Performed By: #### C BC, BMP #### [address] [place] [address] [place] Occult Blood,Urine 2+ High Negative [facility] Comment on above: Order Comment: Name Collection Type:: Straight Catheter Result Comment: PERF ORMED BY: [place] [address] PATHOLOGIST [employer] HEMANT CHÁVEZ M.D. Performed By: #### C BC, BMP #### [address] pH (U) 5.5 [pH] Normal 5.0-9.0 [facility] Comment on above: Order Comment: Name Collection Type:: Straight Catheter Performed By: #### C BC, BMP #### [address] Protein (U) [Mass/Vol] 300 mg/dL High Negative [facility] Comment on above: Order Comment: Name Collection Type:: Straight Catheter Performed By: #### C BC, BMP #### [address] Specificy [place],Urine 1.026 Normal 1.001-1.030 [facility] Comment on above: Order Comment: Name Collection Type:: Straight Catheter Performed By: #### C BC, BMP #### [address] Urobilinogen,Urine Normal Normal Normal [facility] Comment on above: Order Comment: Name Collection Type:: Straight Catheter Performed By: #### C BC, BMP #### [address] Urine Cultureon 09-01-2021 Bacteria identified Cx Nom (U) ORGANISM: Klebsiella pneumoniae (O:KLEPNE) [place] Count 75,000 Aerobic MANAV Charge (NUC86) --- [...] RESISTANT TO ALL B-LACTAM DRUGS. PERFORMED BY: [place] [address] PATHOLOGIST [employer] HEMANT CHÁVEZ M.D. Normal [facility] Comment on above: Performed By: #### C BC, BMP #### [facility] [address] Venous Blood Gason CO2 [Moles/Vol] 23.6 mmol/L Low 24.0-29.0 [facility] Comment on above: Performed By: #### G LULS #### Point of Care testing , HCO3 (Bld) [Moles/Vol] 22.6 mmol/L Low 23.0-29.0 [facility] Comment on above: Performed By: #### G LULS #### Point of Care testing , Respiratory Critical Normal [facility] Comment on above: Result Comment: Crit ical Value called on: 09/01/2021 at 12:46 PERFORMED BY: [place] [address] PATHOLOGIST [employer] HEMANT CHÁVEZ M.D. Performed By: #### G LULS #### Point of Care testing , VBG Base Excess -0.6 mmol/L Normal -3.0-3.0 [facility] Comment on above: Performed By: #### G LULS #### Point of Care testing , VBG Draw Site Venous Normal [facility] Comment on above: Performed By: #### G LULS #### Point of Care testing , VBG Frac Inspired O2 21 % Normal [facility] Comment on above: Performed By: #### G LULS #### Point of Care testing , VBG O2 Content 7.7 mmol/L Normal 6.6-9.7 [facility] Comment on above: Performed By: #### G LULS #### Point of Care testing , VBG Oxygen Saturation 97.1 % Off scale high 73.0-76.0 [facility] Comment on above: Performed By: #### G LULS #### Point of Care testing , VBG PCO2 32.8 mm[Hg] Low 38.0-50.0 [facility] Comment on above: Performed By: #### G LULS #### Point of Care testing , VBG PH Venous PH 7.46 High 7.32-7.43 [facility] Comment on above: Performed By: #### G LULS #### Point of Care testing , VBG PO2 88.4 mm[Hg] Off scale high 35.0-45.0 [facility] Comment on above: Performed By: #### G LULS #### Point of Care testing , XR chest 1V portableon 09-01 XR [place] 1[place] [address] XRay Report Signed Patient: Jeanmarie Garcia MR#: [id number] 757 : 1950 Acct:[id number] Age/Sex: 71 / F ADM Date: 09/01/21 [...] Gerson White M.D.09/01/2021 12:02 PM Dictation Location: [facility]13 Transcribed By: [facility] 09/01/21 1202 Dictated By: Gerson White DO 09/01/21 1200 Signed By: 09/01/21 1202 Normal [facility] Glucose Poct Glucometerson 0 08-25-2021 Commemt1 Glu2: Cleaned Meter [facility] Comment on above: Result Comment: PERF ORMED BY: [place] [address] PATHOLOGIST [employer] HEMANT CHÁVEZ M.D. Performed By: #### C BC, LACTIC, HS TROP, HEPATIC, BMP, LIPASE, BHOB, T4F, TSH3 #### [address] Glucose [Mass/Vol] 143 mg/dL Normal [facility] Comment on above: Result Comment: [facility] Glucose Reference Range is dependent on time and content of last meal. Glucose of more than 200 mg/dL in a nonstressed, ambulatory subject supports the diagnosis of Diabetes Mellitus. Performed By: #### C BC, LACTIC, HS TROP, HEPATIC, BMP, LIPASE, BHOB, T4F, TSH3 #### [address] Basic Metabolic Panelon 05- Calcium [Mass/Vol] 8.4 mg/dL Normal 8.2-10.2 [facility] Comment on above: Performed By: #### C BC, LACTIC, HS TROP, HEPATIC, BMP, LIPASE, BHOB, T4F, TSH3 #### [place] [id number] [facility] Chloride [Moles/Vol] 102 mmol/L Normal 95-114 [facility] Comment on above: Performed By: #### C BC, LACTIC, HS TROP, HEPATIC, BMP, LIPASE, BHOB, T4F, TSH3 #### [facility] [address] CO2 [Moles/Vol] 26.5 mmol/L Normal 22.0-30.0 [facility] Comment on above: Performed By: #### C BC, LACTIC, HS TROP, HEPATIC, BMP, LIPASE, BHOB, T4F, TSH3 #### [facility] [address] Creatinine [Mass/Vol] 1.03 mg/dL Normal 0.44-1.03 [facility] Comment on above: Performed By: #### C BC, LACTIC, HS TROP, HEPATIC, BMP, LIPASE, BHOB, T4F, TSH3 #### [facility] [address] Creatinine Clr Calc Pharmacy 59.91 [facility] Comment on above: Performed By: #### C BC, LACTIC, HS TROP, HEPATIC, BMP, LIPASE, BHOB, T4F, TSH3 #### [facility] [address] Estimated GFR ( Roseline > 60 [facility] Comment on above: Result Comment: GFR estimated reference range: According to KDOQI guidelines, <60 ml/min/1.73m2 is sufficient to diagnose a patient with chronic kidney disease. Performed By: #### C BC, LACTIC, HS TROP, HEPATIC, BMP, LIPASE, BHOB, T4F, TSH3 #### [facility] [address] Estimated GFR (Non- Am 53 [facility] Comment on above: Performed By: #### C BC, LACTIC, HS TROP, HEPATIC, BMP, LIPASE, BHOB, T4F, TSH3 #### [facility] [address] Glucose [Mass/Vol] 148 mg/dL High 70-100 [facility] Comment on above: Result Comment: [place] Glucose Reference Range is dependent on time and content of last meal. Glucose of more than 200 mg/dL in a nonstressed, ambulatory subject supports the diagnosis of Diabetes Mellitus. ADA recommended reference range Performed By: #### C BC, LACTIC, HS TROP, HEPATIC, BMP, LIPASE, BHOB, T4F, TSH3 #### [address] Potassium [Moles/Vol] 3.8 mmol/L Normal 3.5-5.1 [facility] Comment on above: Performed By: #### C BC, LACTIC, HS TROP, HEPATIC, BMP, LIPASE, BHOB, T4F, TSH3 #### [address] Sodium [Moles/Vol] 137 mmol/L Normal 136-146 [facility] Comment on above: Performed By: #### C BC, LACTIC, HS TROP, HEPATIC, BMP, LIPASE, BHOB, T4F, TSH3 #### [address] Urea nitrogen [Mass/Vol] 12 mg/dL Normal 9-23 [facility] Comment on above: Performed By: #### C BC, LACTIC, HS TROP, HEPATIC, BMP, LIPASE, BHOB, T4F, TSH3 #### [address] Glucose Poct Glucometerson 0 08-24-2021 Commemt1 Glu2: Cleaned Meter Normal [facility] Comment on above: Result Comment: PERF ORMED BY: [place] [address] PATHOLOGIST [employer] HEMANT CHÁVEZ M.D. Performed By: #### C BC, LACTIC, HS TROP, HEPATIC, BMP, LIPASE, BHOB, T4F, TSH3 #### [address] Glucose [Mass/Vol] 239 mg/dL Normal [facility] Comment on above: Result Comment: [place] Glucose Reference Range is dependent on time and content of last meal. Glucose of more than 200 mg/dL in a nonstressed, ambulatory subject supports the diagnosis of Diabetes Mellitus. Performed By: #### C BC, LACTIC, HS TROP, HEPATIC, BMP, LIPASE, BHOB, T4F, TSH3 #### [place] [address] [place] Commemt1 Glu2: Cleaned Meter Normal [facility] Comment on above: Result Comment: PERF ORMED BY: [place] [address] PATHOLOGIST [employer] HEMANT CHÁVEZ M.D. Performed By: #### C BC, BMP #### [address] Glucose [Mass/Vol] 191 mg/dL Normal [facility] Comment on above: Result Comment: [place] [facility] Glucose Reference Range is dependent on time and content of last meal. Glucose of more than 200 mg/dL in a nonstressed, ambulatory subject supports the diagnosis of Diabetes Mellitus. Performed By: #### C BC, BMP #### [address] Glucose [Mass/Vol] 149 mg/dL Normal [facility] Comment on above: Result Comment: [place] [facility] Glucose Reference Range is dependent on time and content of last meal. Glucose of more than 200 mg/dL in a nonstressed, ambulatory subject supports the diagnosis of Diabetes Mellitus. PERFORMED BY: [place] [address] PATHOLOGIST [employer]ER HEMANT CHÁVEZ M.D. Performed By: #### C BC, BMP #### [address] Glucose [Mass/Vol] 177 mg/dL Normal [facility] Comment on above: Result Comment: [place] [facility] Glucose Reference Range is dependent on time and content of last meal. Glucose of more than 200 mg/dL in a nonstressed, ambulatory subject supports the diagnosis of Diabetes Mellitus. PERFORMED BY: [place] [address] PATHOLOGIST [employer] HEMANT CHÁVEZ M.D. Performed By: #### C BC, LACTIC, HS TROP, HEPATIC, BMP, LIPASE, BHOB, T4F, TSH3 #### [address] HCV Ab with Rfx to NAAon HCV Ab with Reflex to Qual NAILA <0.1 Normal 0.0-0.9 [facility] Comment on above: Order Comment: Which is this, the Source or the Person with the Exposure?: SOURCE Source Medical Record: [id number] Exposed Performed By: #### C BC, BMP #### [address] Interpretation Normal . [facility] Comment on above: Order Comment: Which is this, the Source or the Person with the Exposure?: SOURCE Source Medical Record: [id number] Exposed Result Comment: Nega tive Not infected with HCV, unless recent infection is suspected or other evidence exists to indicate HCV infection. Performed at: - [facility] [id number] [employer] Operator: Spencer Mcdaniels PhD, Phone: [phone] PERFORMED BY: [place] [address] PATHOLOGIST [employer] HEMANT CHÁVEZ M.D. Performed By: #### C BC, BMP #### [address] HIV Screen ([facility])on HIV Screen ([facility]) Non-Reactive Normal Nonreactive [facility] Comment on above: Order Comment: Which is this, the Source or the Person with the Exposure?: SOURCE Source Medical Record: [id number] Exposed Result Comment: PERF ORMED BY: [place] [address] PATHOLOGIST [employer] HEMANT CHÁVEZ M.D. Performed By: #### C BC, BMP #### [address] Hemogram CBC Without Diffon 08-24-2021 Erythrocyte distribution width (RBC) [Ratio] 15.5 % High 11.9-15.3 [facility] Comment on above: Performed By: #### C BC, LACTIC, HS TROP, HEPATIC, BMP, LIPASE, BHOB, T4F, TSH3 #### [address] Hematocrit (Bld) [Volume fraction] 35.5 % Normal 34.0-46.4 [facility] Comment on above: Performed By: #### C BC, LACTIC, HS TROP, HEPATIC, BMP, LIPASE, BHOB, T4F, TSH3 #### [address] Hemoglobin (Bld) [Mass/Vol] 11.3 g/dL Low 11.8-15.4 [facility] Comment on above: Performed By: #### C BC, LACTIC, HS TROP, HEPATIC, BMP, LIPASE, BHOB, T4F, TSH3 #### [address] MCH (RBC) [Entitic mass] 28.0 pg Normal 24.7-34.3 [facility] Comment on above: Performed By: #### C BC, LACTIC, HS TROP, HEPATIC, BMP, LIPASE, BHOB, T4F, TSH3 #### [address] MCV (RBC) [Entitic vol] 87.7 fL Normal 80-100 [facility] Comment on above: Performed By: #### C BC, LACTIC, HS TROP, HEPATIC, BMP, LIPASE, BHOB, T4F, TSH3 #### [address] Mean Corpuscular HGB Conc 31.9 g/dL Low 32.0-35.0 [facility] Comment on above: Performed By: #### C BC, LACTIC, HS TROP, HEPATIC, BMP, LIPASE, BHOB, T4F, TSH3 #### [address] Platelet mean volume (Bld) [Entitic vol] 7.7 fL Normal 6.3-10.7 [facility] Comment on above: Result Comment: PERF ORMED BY: [place] [address] PATHOLOGIST [employer] HEMANT CHÁVEZ M.D. Performed By: #### C BC, LACTIC, HS TROP, HEPATIC, BMP, LIPASE, BHOB, T4F, TSH3 #### [facility] [address] Platelets (Bld) [#/Vol] 229 10*3/uL Normal 150-450 [facility] Comment on above: Performed By: #### C BC, LACTIC, HS TROP, HEPATIC, BMP, LIPASE, BHOB, T4F, TSH3 #### [address] RBC (Bld) [#/Vol] 4.05 10*6/uL Normal 3.60-5.00 [facility] Comment on above: Performed By: #### C BC, LACTIC, HS TROP, HEPATIC, BMP, LIPASE, BHOB, T4F, TSH3 #### [address] WBC (Bld) [#/Vol] 9.4 10*3/uL Normal 3.8-11.6 [facility] Comment on above: Performed By: #### C BC, LACTIC, HS TROP, HEPATIC, BMP, LIPASE, BHOB, T4F, TSH3 #### [address] Hepatic Panelon 08-24-2021 Albumin [Mass/Vol] 3.2 g/dL Normal 3.2-5.5 [facility] Comment on above: Performed By: #### C BC, LACTIC, HS TROP, HEPATIC, BMP, LIPASE, BHOB, T4F, TSH3 #### [address] Albumin/Globulin [Mass ratio] 0.8 {ratio} Normal [facility] Comment on above: Performed By: #### C BC, LACTIC, HS TROP, HEPATIC, BMP, LIPASE, BHOB, T4F, TSH3 #### [address] ALP [Catalytic activity/Vol] 99 U/L High 32-92 [facility] Comment on above: Performed By: #### C BC, LACTIC, HS TROP, HEPATIC, BMP, LIPASE, BHOB, T4F, TSH3 #### [address] ALT [Catalytic activity/Vol] 10 U/L Normal 10-60 [facility] Comment on above: Performed By: #### C BC, LACTIC, HS TROP, HEPATIC, BMP, LIPASE, BHOB, T4F, TSH3 #### [address] AST [Catalytic activity/Vol] 13 U/L Normal 10-42 [facility] Comment on above: Performed By: #### C BC, LACTIC, HS TROP, HEPATIC, BMP, LIPASE, BHOB, T4F, TSH3 #### [address] Bilirubin [Mass/Vol] 0.5 mg/dL Normal 0.3-1.2 [facility] Comment on above: Performed By: #### C BC, LACTIC, HS TROP, HEPATIC, BMP, LIPASE, BHOB, T4F, TSH3 #### [address] Bilirubin,Indirect Not performed Normal [facility] Comment on above: Performed By: #### C BC, LACTIC, HS TROP, HEPATIC, BMP, LIPASE, BHOB, T4F, TSH3 #### [address] Bilirubin.indirect [Mass/Vol] mg/dL Normal 0.0-0.4 [facility] Comment on above: Performed By: #### C BC, LACTIC, HS TROP, HEPATIC, BMP, LIPASE, BHOB, T4F, TSH3 #### [address] Globulin (S) [Mass/Vol] 3.8 g/dL Normal [facility] Comment on above: Performed By: #### C BC, LACTIC, HS TROP, HEPATIC, BMP, LIPASE, BHOB, T4F, TSH3 #### [address] Protein [Mass/Vol] 7.0 g/dL Normal 6.1-7.9 [facility] Comment on above: Performed By: #### C BC, LACTIC, HS TROP, HEPATIC, BMP, LIPASE, BHOB, T4F, TSH3 #### [facility] [address] Hepatitis B Surface Antibody on 08-24-2021 Hepatitis B Surface Antibody Non-Reactive Normal . [facility] Comment on above: Order Comment: Which is this, the Source or the Person with the Exposure?: SOURCE Source Medical Record: [id number] Exposed Result Comment: Non Reactive: Inconsistent with immunity, less than 10 mIU/mL Reactive: Consistent with immunity, greater than 9.9 mIU/mL Performed By: #### C BC, BMP #### [address] Hepatitis B Surface Antigeno n 08-24-2021 HBsAg Screen Negative Normal Negative [facility] Comment on above: Order Comment: Which is this, the Source or the Person with the Exposure?: SOURCE Source Medical Record: [id number] Exposed Result Comment: Perf ormed at: - [facility] [id number] [employer] Machine Operator: Spencer Mcdaniels PhD, Phone: [phone] Performed By: #### C BC, BMP #### [address] Eric 08-24-2021 L -- ---- Specimen: [id number] Received: 08/24/21 Status: JSOE Andrew Num: [id number] Spec Type: Surgical Subm Dr: Isael Castro MD Tissues: A Gallbladder (GALLBLADDER) Procedures: HE Stain, Gross/Micro L3 ---- Patient Age/Sex Location Account Attending Physician ---- Jeanmarie Garcia 71/F 4N [id number] Isael Castro MD ---- SPEC NUM: [id number] RECD: 08/24/21 STATUS: JOSE ANDREW NUM: [id number] BASIA: 08/24/21- [facility] DR: Isael Castro MD ENTERED: 08/24/21 [place] [facility] LUCIAN TYPE: Surgical DEPT: S ORDERED: [...] lesions or periductal lymph nodes are identified. Finisher Hot Strip sections are submitted in one cassette labeled A1. (SM/JS) Microscopic Description One glass slide with H E stained material has been examined. The microscopic findings support the above pathologic diagnosis. [id number] ---- ---- Specimen: [id number] Received: 08/24/21 Status: JOSE Memo Num: [id number] Spec Type: Surgical Subm Dr: Isael Castro MD Tissues: A Gallbladder (GALLBLADDER) Procedures: HE Stain, Gross/Micro L3 ---- Patient: GarciaJeanmarie M [id number] (Continued) ---- Signed (signature on file) Hemant Chávez MD 08/25/21 182 Normal [facility] Lipaseon 08-24-2021 Lipase [Catalytic activity/Vol] 27.0 U/L Normal 22-51 [facility] Comment on above: Result Comment: PERF ORMED BY: [place] [address] PATHOLOGIST [employer]ER HEMANT CHÁVEZ M.D. Performed By: #### C BC, LACTIC, HS TROP, HEPATIC, BMP, LIPASE, BHOB, T4F, TSH3 #### [address] Basic Metabolic Panelon 08-07 Calcium [Mass/Vol] 8.4 mg/dL Normal 8.2-10.2 [facility] Comment on above: Performed By: #### C BC, BMP #### [address] Chloride [Moles/Vol] 104 mmol/L Normal 95-114 [facility] Comment on above: Performed By: #### C BC, BMP #### [address] CO2 [Moles/Vol] 24.8 mmol/L Normal 22.0-30.0 [facility] Comment on above: Performed By: #### C BC, BMP #### [address] Creatinine [Mass/Vol] 0.96 mg/dL Normal 0.44-1.03 [facility] Comment on above: Performed By: #### C BC, BMP #### [address] Creatinine Clr Calc Pharmacy 64.28 Normal [facility] Comment on above: Performed By: #### C BC, BMP #### [facility] [address] Estimated GFR ( Roseline > 60 [facility] Comment on above: Result Comment: GFR estimated reference range: According to KDOQI guidelines, <60 ml/min/1.73m2 is sufficient to diagnose a patient with chronic kidney disease. Performed By: #### C BC, BMP #### [facility] [address] Estimated GFR (Non- Am 58 [facility] Comment on above: Performed By: #### C BC, BMP #### [facility] [address] Glucose [Mass/Vol] 101 mg/dL High 70-100 [facility] Comment on above: Result Comment: [place] om Glucose Reference Range is dependent on time and content of last meal. Glucose of more than 200 mg/dL in a nonstressed, ambulatory subject supports the diagnosis of Diabetes Mellitus. ADA recommended reference range Performed By: #### C BC, BMP #### [facility] [address] Potassium [Moles/Vol] 3.5 mmol/L Normal 3.5-5.1 [facility] Comment on above: Performed By: #### C BC, BMP #### [facility] [address] [place] [address] [place] Sodium [Moles/Vol] 137 mmol/L Normal 136-146 [facility] Comment on above: Performed By: #### C BC, BMP #### [facility] [address] [place] [id number] [facility] Urea nitrogen [Mass/Vol] 10 mg/dL Normal 9-23 [facility] Comment on above: Performed By: #### C BC, BMP #### [address] COVID-19 Antigenon 2 COVID-19 Antigen Healthcare [...] developed and its performance characteristic determined by [employer] and validated at [facility]. This test has not been FDA cleared [...] for SARS Antigen by JW PERFORMED BY: [place] [address] PATHOLOGIST [employer]ER HEMANT CHÁVEZ M.D. Normal [facility] Comment on above: Performed By: #### C , BMP #### [address] COVID-19 [facility] 08-23-2021 SARS-CoV-2 (COVID-19) RNA NAILA+probe Ql (Unsp spec) Negative Normal Negative [facility] Comment on above: Order Comment: Healt hcare Worker?: N Result Comment: Testing for SARS-CoV-2 by RT-PCR This test was developed and its performance characteristics determined by [employer] and validated at the [facility]. This test has not been FDA cleared [...] is terminated or revoked sooner. PERFORMED BY: [place] [address] PATHOLOGIST [employer]ER HEMANT CHÁVEZ M.D. Performed By: #### C BC, BMP #### [address] Complete Blood Count Auto Di ffon 08-23-2021 Basophils (Bld) [#/Vol] 0.0 10*3/uL Normal 0.0-0.2 [facility] Comment on above: Result Comment: PERF ORMED BY: [place] [address] PATHOLOGIST [employer]ER HEMANT CHÁVEZ M.D. Performed By: #### C BC, BMP #### [address] Basophils/100 WBC (Bld) 0.4 % Normal . [facility] Comment on above: Performed By: #### C BC, BMP #### [address] Eosinophils (Bld) [#/Vol] 0.5 10*3/uL High 0.0-0.45 [facility] Comment on above: Performed By: #### C BC, BMP #### [address] Eosinophils/100 WBC (Bld) 5.4 % Normal . [facility] Comment on above: Performed By: #### C BC, BMP #### [address] Erythrocyte distribution width (RBC) [Ratio] 15.5 % High 11.9-15.3 [facility] Comment on above: Performed By: #### C BC, BMP #### [address] Hematocrit (Bld) [Volume fraction] 37.7 % Normal 34.0-46.4 [facility] Comment on above: Performed By: #### C BC, BMP #### [address] Hemoglobin (Bld) [Mass/Vol] 12.2 g/dL Normal 11.8-15.4 [facility] Comment on above: Performed By: #### C BC, BMP #### [address] Lymphocytes (Bld) [#/Vol] 2.0 10*3/uL Normal 1.00-4.8 [facility] Comment on above: Performed By: #### C BC, BMP #### [address] Lymphocytes/100 WBC (Bld) 21.9 % Normal . [facility] Comment on above: Performed By: #### C BC, BMP #### [address] MCH (RBC) [Entitic mass] 28.1 pg Normal 24.7-34.3 [facility] Comment on above: Performed By: #### C BC, BMP #### [address] MCV (RBC) [Entitic vol] 86.9 fL Normal 80-100 [facility] Comment on above: Performed By: #### C BC, BMP #### [address] Mean Corpuscular HGB Conc 32.3 g/dL Normal 32.0-35.0 [facility] Comment on above: Performed By: #### C BC, BMP #### [facility] [address] [place] [address] [place] Monocytes (Bld) [#/Vol] 0.6 10*3/uL Normal 0.0-0.8 [facility] Comment on above: Performed By: #### C BC, BMP #### [facility] [address] [place] [address] [place] Monocytes/100 WBC (Bld) 6.2 % Normal . [facility] Comment on above: Performed By: #### C BC, BMP #### [facility] [address] Neutrophils (Bld) [#/Vol] 5.9 10*3/uL Normal 1.8-7.7 [facility] Comment on above: Performed By: #### C BC, BMP #### [place] [address] [place] Neutrophils/100 WBC (Bld) 66.1 % Normal . [facility] Comment on above: Performed By: #### C BC, BMP #### [facility] [address] [place] [address] [place] Nucleated RBC/100 WBC (Bld) [Ratio] 0.0 % Normal 0-0.5 [facility] Comment on above: Performed By: #### C BC, BMP #### [facility] [address] [place] [address] [place] Platelet mean volume (Bld) [Entitic vol] 7.7 fL Normal 6.3-10.7 [facility] Comment on above: Performed By: #### C BC, BMP #### [facility] [address] [place] [address] [place] Platelets (Bld) [#/Vol] 261 10*3/uL Normal 150-450 [facility] Comment on above: Performed By: #### C BC, BMP #### [facility] [address] [place] [address] [place] RBC (Bld) [#/Vol] 4.33 10*6/uL Normal 3.60-5.00 [facility] Comment on above: Performed By: #### C BC, BMP #### [facility] [address] WBC (Bld) [#/Vol] 8.9 10*3/uL Normal 4.5-11.0 [facility] Comment on above: Performed By: #### C BC, BMP #### [place] [address] [place] Dipstick and Microscopicon 0 08-23-2021 Appearance (U) Cloudy Critically abnormal Clear [facility] Comment on above: Order Comment: Name Collection Type:: Clean-Voided Midstream Performed By: #### C BC, LACTIC, HS TROP, HEPATIC, BMP, LIPASE, BHOB, T4F, TSH3 #### [address] Bacteria,Urine 2+ High None Seen [facility] Comment on above: Order Comment: Name Collection Type:: Clean-Voided Midstream Performed By: #### C BC, LACTIC, HS TROP, HEPATIC, BMP, LIPASE, BHOB, T4F, TSH3 #### [facility] [address] [place] [address] [place] Bilirubin,Urine Negative Normal Negative [facility] Comment on above: Order Comment: Name Collection Type:: Clean-Voided Midstream Performed By: #### C BC, LACTIC, HS TROP, HEPATIC, BMP, LIPASE, BHOB, T4F, TSH3 #### [address] Color (U) Yellow Normal Yellow [facility] Comment on above: Order Comment: Name Collection Type:: Clean-Voided Midstream Performed By: #### C BC, LACTIC, HS TROP, HEPATIC, BMP, LIPASE, BHOB, T4F, TSH3 #### [address] Glucose Ql (U) Normal Normal Normal [facility] Comment on above: Order Comment: Name Collection Type:: Clean-Voided Midstream Performed By: #### C BC, LACTIC, HS TROP, HEPATIC, BMP, LIPASE, BHOB, T4F, TSH3 #### [address] Hyaline Casts,Urine 0-8 Normal 0-8 [facility] Comment on above: Order Comment: Name Collection Type:: Clean-Voided Midstream Result Comment: PERF ORMED BY: [place] [address] PATHOLOGIST [employer]ER HEMANT CHÁVEZ M.D. Performed By: #### C BC, LACTIC, HS TROP, HEPATIC, BMP, LIPASE, BHOB, T4F, TSH3 #### [address] Ketones Ql (U) Negative Normal Negative [facility] Comment on above: Order Comment: Name Collection Type:: Clean-Voided Midstream Performed By: #### C BC, LACTIC, HS TROP, HEPATIC, BMP, LIPASE, BHOB, T4F, TSH3 #### [address] Leukocyte esterase Test strip Ql (U) 3+ High Negative [facility] Comment on above: Order Comment: Name Collection Type:: Clean-Voided Midstream Performed By: #### C BC, LACTIC, HS TROP, HEPATIC, BMP, LIPASE, BHOB, T4F, TSH3 #### [address] Nitrite,Urine Negative Normal Negative [facility] Comment on above: Order Comment: Name Collection Type:: Clean-Voided Midstream Performed By: #### C BC, LACTIC, HS TROP, HEPATIC, BMP, LIPASE, BHOB, T4F, TSH3 #### [address] Occult Blood,Urine Negative Normal Negative [facility] Comment on above: Order Comment: Name Collection Type:: Clean-Voided Midstream Result Comment: PERF ORMED BY: [place] [address] PATHOLOGIST [employer]ER HEMANT CHÁVEZ M.D. Performed By: #### C BC, LACTIC, HS TROP, HEPATIC, BMP, LIPASE, BHOB, T4F, TSH3 #### [address] pH (U) 5.5 [pH] Normal 5.0-9.0 [facility] Comment on above: Order Comment: Name Collection Type:: Clean-Voided Midstream Performed By: #### C BC, LACTIC, HS TROP, HEPATIC, BMP, LIPASE, BHOB, T4F, TSH3 #### [address] Protein (U) [Mass/Vol] 100 mg/dL High Negative [facility] Comment on above: Order Comment: Name Collection Type:: Clean-Voided Midstream Performed By: #### C BC, LACTIC, HS TROP, HEPATIC, BMP, LIPASE, BHOB, T4F, TSH3 #### [address] RBC,Urine 1-2 Normal 0-4 [facility] Comment on above: Order Comment: Name Collection Type:: Clean-Voided Midstream Performed By: #### C BC, LACTIC, HS TROP, HEPATIC, BMP, LIPASE, BHOB, T4F, TSH3 #### [address] Specificy [place],Urine 1.021 Normal 1.001-1.030 [facility] Comment on above: Order Comment: Name Collection Type:: Clean-Voided Midstream Performed By: #### C BC, LACTIC, HS TROP, HEPATIC, BMP, LIPASE, BHOB, T4F, TSH3 #### [address] Squamous Epithelial Cell,Urine 20-30 High 0-2 [facility] Comment on above: Order Comment: Name Collection Type:: Clean-Voided Midstream Performed By: #### C BC, LACTIC, HS TROP, HEPATIC, BMP, LIPASE, BHOB, T4F, TSH3 #### [address] Urobilinogen,Urine Normal Normal Normal [facility] Comment on above: Order Comment: Name Collection Type:: Clean-Voided Midstream Performed By: #### C BC, LACTIC, HS TROP, HEPATIC, BMP, LIPASE, BHOB, T4F, TSH3 #### [facility] [address] [place] [address] WBC,Urine 50-100 High 0-4 [facility] Comment on above: Order Comment: Name Collection Type:: Clean-Voided Midstream Performed By: #### C BC, LACTIC, HS TROP, HEPATIC, BMP, LIPASE, BHOB, T4F, TSH3 #### [facility] [address] [place] [address] ECG 12 lead ECGon 08-23-2021 ECG 12 lead ECG [facility] [place] [address] [place] [address] Electrocardiograph Report Signed Patient: Jeanmarie Garcia MR#: [id number] : 1950 Acct:[id number] Age/Sex: 71 / F ADM Date: 08/23/21 Loc: [place] Room: Type: [facility] Attending Dr: Isael Castro MD Ordering [...] Signed By Soy Bradshaw DO 1549 Normal [facility] Glucose Poct Glucometerson 0 08-23-2021 Commemt1 Glu2: Cleaned Meter Normal [facility] Comment on above: Result Comment: PERF ORMED BY: [address] [place] [address] PATHOLOGIST [employer]ER HEMANT CHÁVEZ M.D. Performed By: #### C BC, LACTIC, HS TROP, HEPATIC, BMP, LIPASE, BHOB, T4F, TSH3 #### [facility] [address] Glucose [Mass/Vol] 197 mg/dL Normal [facility] Comment on above: Result Comment: [place] om Glucose Reference Range is dependent on time and content of last meal. Glucose of more than 200 mg/dL in a nonstressed, ambulatory subject supports the diagnosis of Diabetes Mellitus. Performed By: #### C BC, LACTIC, HS TROP, HEPATIC, BMP, LIPASE, BHOB, T4F, TSH3 #### [address] Commemt1 Glu2: Cleaned Meter Normal [facility] Comment on above: Result Comment: PERF ORMED BY: [place] [address] PATHOLOGIST [employer]ER HEMANT CHÁVEZ M.D. Performed By: #### C BC, LACTIC, HS TROP, HEPATIC, BMP, LIPASE, BHOB, T4F, TSH3 #### [address] Glucose [Mass/Vol] 145 mg/dL Normal [facility] Comment on above: Result Comment: [place] Glucose Reference Range is dependent on time and content of last meal. Glucose of more than 200 mg/dL in a nonstressed, ambulatory subject supports the diagnosis of Diabetes Mellitus. Performed By: #### C BC, LACTIC, HS TROP, HEPATIC, BMP, LIPASE, BHOB, T4F, TSH3 #### [address] Hepatic Panelon 08-23-2021 Albumin [Mass/Vol] 3.1 g/dL Low 3.2-5.5 [facility] Comment on above: Performed By: #### C BC, BMP #### [address] Albumin/Globulin [Mass ratio] 0.8 {ratio} Normal [facility] Comment on above: Performed By: #### C BC, BMP #### [facility] [address] ALP [Catalytic activity/Vol] 91 U/L Normal 32-92 [facility] Comment on above: Performed By: #### C BC, BMP #### [facility] [address] ALT [Catalytic activity/Vol] 12 U/L Normal 10-60 [facility] Comment on above: Performed By: #### C BC, BMP #### [facility] [address] AST [Catalytic activity/Vol] 16 U/L Normal 10-42 [facility] Comment on above: Performed By: #### C BC, BMP #### [facility] [address] [place] [address] Bilirubin [Mass/Vol] 0.5 mg/dL Normal 0.3-1.2 [facility] Comment on above: Performed By: #### C BC, BMP #### [facility] [address] [place] [address] Bilirubin,Indirect Not performed Normal [facility] Comment on above: Performed By: #### C BC, BMP #### [address] Bilirubin.indirect [Mass/Vol] mg/dL Normal 0.0-0.4 [facility] Comment on above: Performed By: #### C BC, BMP #### [facility] [address] [place] [address] Globulin (S) [Mass/Vol] 3.8 g/dL Normal [facility] Comment on above: Performed By: #### C BC, BMP #### [address] Protein [Mass/Vol] 6.9 g/dL Normal 6.1-7.9 [facility] Comment on above: Performed By: #### C BC, BMP #### [facility] [address] [place] [address] [place] Lipaseon 05-17-2022 Lipase [Catalytic activity/Vol] 31.0 U/L Normal 22-51 [facility] Comment on above: Result Comment: PERF ORMED BY: [place] [address] PATHOLOGIST [employer]ER HEMANT CHÁVEZ M.D. Performed By: #### C BC, BMP #### [address] Holley Ag Negativeon 08-24-19 Holley Ag Negative Negative Normal Negative [facility] Comment on above: Result Comment: This is a duplicate Holley SARS Antigen (JW) result to be used for statistical tracking purpose only. PERFORMED BY: [place] [address] PATHOLOGIST [employer]ER HEMANT CHÁVEZ M.D. Performed By: #### C BC, BMP #### [address] US gall bladderon 08-23-2021 US gall bladder [facility] [place] [address] [place] [address] Ultrasound Report Signed Patient: Jeanmarie Garcia MR#: [id number] : 1950 Acct:[id number] Age/Sex: 71 / F ADM Date: 08/23/21 Loc: ER Room: Type: [facility] Attending Dr: Ordering Provider: Soy Bradshaw DO [...] Glasgow Jr., D.OMichaelle08/23/2021 9:59 AM Dictation Location: [place] [address] Tech: Lolis Owen Transcribed By: [facility] 08/23/21958 Dictated By: Gerald Glasgow Jr, DO 08/23/21 0954 Signed By: 08/23/21958 [facility] Urine Cultureon 08-23-2021 Bacteria identified Cx Nom (U) >100,000 colonies/ml mixed bacterial skin contaminants 2 Days PERFORMED BY: [place] [address] PATHOLOGIST [employer]ER HEMANT CHÁVEZ M.D. [facility] Comment on above: Performed By: #### C BC, LACTIC, HS TROP, HEPATIC, BMP, LIPASE, BHOB, T4F, TSH3 #### [address] Coding Summaryon 05-28-2019 Coding Summary CODING DATE: 05/28/2019 [facility] STATUS: Home PAYOR: Medicare ADMIT DX: [...] Mony Vines Date Saved: 05/28/2019 03:02 pm [facility] MAGR Intraoperative Recordon 05-15-2019 MAGR Intraoperative Record MAGR Intra-Op Record Summary Primary Physician: Magdi Mclaughlin MD Finalized Date/Time: 05/15/19 13:43:13 Pt. Name: JEANMARIE GARCIA/Sex: 1950 FEMALE Med Rec #: [id number] Physician: Magdi Mclaughlin MD Financial #: [id number] Pt. Type: D Room/Bed: / Admit/Disch: 05/13/19 [...] Role Performed Surgeon - Primary Anesthesiologist of Hand Lacer Record Time In 05/13/19 07:42:00 05/13/19 07:42:00 05/13/19 07:42:00 Time Out 05/13/19 09:07:00 05/13/19 09:07:00 05/13/19 09:07:00 Procedure Hernia Repair Ventral Hernia Repair Ventral Hernia Repair Ventral Last Modified By: Anuja Farias RN, Barbara RN Long, Barbara RN 05/13/19 09:08:03 05/13/19 09:08:03 05/13/19 09:08:03 Entry 4 Entry 5 Case Attendee Irving LOOMIS, Dana Dai CST Role Performed Scrub Personnel Fur Dyer Time In 05/13/19 07:42:00 05/13/19 07:42:00 Time [...] Date/Time By: Size 3 CM / 3.2 Manager Utilization Management BARD Lot Number [id number] Expiration Date 07/04/20 Implant Usage Data 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 Outcome Met (O.30) Yes Last Modified [...] 05/15/19 13:42 MHBLONG Modify Pick List Normal [facility] Coding Summaryon 05-14-2019 Coding Summary CODING DATE: 05/14/2019 [facility] STATUS: Home PAYOR: Medicare MC APC DESCRIPTION 5341 Abdominal/Peritoneal/B iliary and Related Procedures ADMIT DX: REASON FOR VISIT DX: K43.9 Ventral hernia without obstruction or gangrene FINAL DX: PRINCIPAL: K43.9 Ventral hernia without obstruction or gangrene SECONDARY: E11.9 Type 2 diabetes mellitus without complications Z79.4 MCFP (current) use of insulin PYMT PROC APC STAT DESCRIPTION DOCTOR NAME DATE 81503 5341 J1 Repair initial Magdi Mclaughlin MD 05/13/2019 incisional or ventral hernia; reducible 13181 Implantation of mesh or Magdi Mclaughlin MD [...] Sarai Lynn Date Saved: 05/14/2019 02:01 pm [facility] Consent Formson 05-14-2019 Consent Forms [id number] 20 [id number]#[address] [place] [address] Medication Managementon Medication Management [id number]#1.[address] [place] [address] Outside Recordson 05-14-2019 Outside Records [id number] 20 [id number]#1.[address] [place] [address] Provider Orderson 05-14-2019 Provider Orders [id number] 20 [id number]#1.[address] [place] [address] Telemetry Stripson 0 Telemetry Strips [id number] 20 [id number]#1.[address] [place] [address] Anesthesia Noteon 05-13-2019 Anesthesia Note Patient: JEANMARIE [...] on: 05/13/2019 09:57 EST] Kevin Khoury MD [facility] Anesthesia Note Patient: JEANMARIE GARCIA Age: [...] (chronic obstructive pulmonary disease) / SNOMED CT 64913509 / Confirmed Development delay / SNOMED CT 027361143 / Confirmed Diabetes / SNOMED CT 142544607 / Confirmed GERD (gastroesophageal reflux disease) / SNOMED CT 010751174 / Confirmed Hyponatremia / SNOMED CT 740891545 / Confirmed Hypothyroidism / SNOMED CT 99764321 / Confirmed Schizophrenia / SNOMED CT 54680582 / Confirmed Speech problem / SNOMED CT 771615153 / Confirmed Resolved: Depression / SNOMED CT 64539984 Histories Family History: History is unknown. Procedure history: Stomach ([id number]). Comments: 11/19/2018 12:55 Marshal Hoyos RN pt [...] Oriented. Review / Management Laboratory Results Plan [place] [employer]hesi[employer]#(ASA ) physical status classification: [...] on: 05/13/2019 08:13 EST] Kevin Khoury MD [facility] History and Physicalon 05-13 History and Physical [id number] .00OTGTIFF [facility] Inpatient Patient Summaryon 05-13-2019 [place] [address] Patient Discharge Instructions Name: JEANMARIE GARCIA : 1950 Patient Address: [address] [place] [address] Primary Care Provider: Name: GERALD FUENTES After you are discharged if you find you have any questions, please, call [phone] ext [phone] to speak to a nurse. Discharge Diagnosis: Ventral incisional hernia Prescription Information: If you have been given a prescription for narcotics, seek immediate medical attention if you have any difficulty breathing or any sudden status changes such as confusion and sleepiness. If you or anyone you know is experiencing suicidal thoughts, mental health, alcohol and/or drug addiction problems; contact the [facility] 30/10 Crisis Hotline -Text 4HOPE to 225991. If you received any narcotics, sedation, or [...] business decisions or sign any legal documents [facility] would like to thank you for allowing us to assist you with your healthcare needs. The following includes patient education materials and information regarding your injury/illness. JEANMARIE GARCIA KARMA has been given the following list of follow-up instructions, prescriptions, and patient education materials: Follow-up Instructions With: Address: When: Magdi Mclaughlin [address] [place] [address], [address] [place], [place] [id number] Business (1) In 2 weeks 05/27/2019 With: Address: When: GERALD FUENTES [address] [place] [address] [facility] (1) Medications During the course of your visit, your medication list was updated with the most current information. The details of those changes are reflected below: New Medications Printed Prescriptions acetaminophen-hydrocod one (Villalba 5 mg-325 mg oral tablet) 1 tab(s) [...] needed as needed for pain. acetaminophen-hydrocod one (Villalba 5 mg-325 mg oral tablet) 1 tab(s) [...] the next day or two. ? Take omqo-vyc-idkwdid and prescription medicines only as told by [...] 03/12/2013 Document Revised: 05/08/2018 Document Reviewed: 10/15/2017 [employer] Interactive Patient Education ? 2019 [employer] Viruses or Bacteria What?s got you [...] for Disease Control and Prevention [facility] PACU Record MAGR PACU Record Summary Primary Physician: Magdi Mclaughlin MD Finalized Date/Time: 05/13/19 10:21:28 Pt. Name: JEANMARIE GARCIA KARMA Montgomery./Sex: 1950 FEMALE Med Rec #: [id number] Physician: Magdi Mclaughlin MD Financial #: [id number] Pt. Type: D Room/Bed: / Admit/Disch: 05/13/19 05:53:00 - Institution: PACU Case Times MAGR Entry 1 In PACU I 05/13/19 09:10:00 Discharge from PACU 05/13/19 09:49:00 I Last Modified By: Yolanda Robbins RN 05/13/19 10:21:25 Finalized By: Yolanda Robbins RN Document Signatures Signed By: Yolanda Robbins RN 05/13/19 10:21 [facility] 05-13-2019 MAGR Postoperative Record MAGR Phase II Record Summary Primary Physician: Magdi Mclaughlin MD Finalized Date/Time: 05/13/19 12:19:23 Pt. Name: JEANMARIE GARCIA KARMA Montgomery./Sex: 1950 FEMALE Med Rec #: [id number] Physician: Magdi Mclaughlin MD Financial #: [id number] Pt. Type: D Room/Bed: / Admit/Disch: 05/13/19 05:53:00 - Institution: [facility] II Case Times MAGR Pre-Care Text: Patient [...] Signed By: Denae Najera RN 05/13/19 12:19 [facility] MAGR Preoperative Recordon 0 05-13-2019 MAGR Preoperative Record MAGR Pre-Op Record Summary Primary Physician: Magdi Mclaughlin MD Finalized Date/Time: 05/13/19 08:06:19 Pt. Name: JEANMARIE GARCIA /Sex: 1950 FEMALE Med Rec #: [id number] Physician: Magdi Mclaughlin MD Financial #: [id number] Pt. Type: D Room/Bed: / Admit/Disch: 05/13/19 [...] Signed By: Anuja Farias RN 05/13/19 08:06 [facility] Operative Report - Surgeon/P rico 05-13-2019 [...] The fascia was closed transversely using interrupted egivem-wp-ygolx 0 Vicryl sutures. The sutures included the [...] discharged today. Magdi Mclaughlin M.D. JOB #: [id number] bk CC: Gerald Fuentes D.O. [Electronically Signed on: 05/13/2019 11:19 EST] Magdi Mclaughlin MD [Verified on: 05/13/2019 11:19 EST] Magdi Mclaughlin MD [Transcribed on: 05/13/2019 10:09 EST] [facility] Patient Handouton 05-13-2019 Patient Handout Gastroenterology Ventral [...] the next day or two. ? Take mbfs-qzl-nkkpamy and prescription medicines only as told by [...] 03/12/2013 Document Revised: 05/08/2018 Document Reviewed: 10/15/2017 [employer] Interactive Patient Education ? 2019 [employer]. [facility] Progress Note - Nurseon 02-0 3-2020 Progress Note - Nurse Pre-op call done, talked with caregiver @ [facility]. Instructed to have pt. here @ 05-13-2019, NPO after midnight-verbalized understanding. [Electronically Signed on: 05/12/2019 09:47 EST] Denae Najera RN [Verified on: 05/12/2019 09:47 EST] Denae Najera RN [facility] Coding Summaryon 05-08-2019 Coding Summary CODING DATE: 05/08/2019 [facility] STATUS: Home PAYOR: Medicare ADMIT DX: [...] Deanna Whitman Date Saved: 05/08/2019 09:15 am [facility] Progress Note - Nurseon 04-11 Progress Note - Nurse Chart reviewed by Dr. Palacios and no new orders received. [Electronically Signed on: 05/08/2019 15:51 EST] Yolanda Soto RN [Verified on: 05/08/2019 15:51 EST] Yolanda Soto RN [facility] .Auto Diff 1on 05-07-2019 Auto [place] % 5 % Normal 1-12 [facility] Comment on above: Performed By: #### 1 [id number], [id number], [id number] #### [facility] (DEFAULT) [address] [place] [address] 31011 Baso Abs# 0.0 x10 Normal 0.0-0.2 [facility] Comment on above: Performed By: #### 1 [id number], 9581258, [id number] #### [facility] (DEFAULT) [address] [place] [address] 45586 Basophils/100 WBC (Bld) 0.1 % Low 0.2-2.0 [facility] Comment on above: Performed By: #### 1 [id number], [id number], 70656143 #### [facility] (DEFAULT) [address] [place] [address] 96177 Eos Abs# 1.2 x10 High 0.0-0.4 [facility] Comment on above: Performed By: #### 1 [id number], 7957239, 58512064 #### [facility] (DEFAULT) [address] [place] [address] 02722 Eosinophils/100 WBC (Bld) 11.4 % High 0.9-4.0 [facility] Comment on above: Performed By: #### 1 [id number], 6797247, 68583421 #### [facility] (DEFAULT) [address] [place] [address] 95997 Lymphocytes (Bld) [#/Vol] 3.3 x10 High 1.3-2.9 [facility] Comment on above: Performed By: #### 1 [id number], 2816197, 82766283 #### [facility] (DEFAULT) [address] [place] [address] 49341 Lymphocytes/100 WBC (Bld) 31 % Normal 14-48 [facility] Comment on above: Performed By: #### 1 [id number], 9664460, 18551845 #### [facility] (DEFAULT) [address] [place] [address] 03615 [place] Abs# 0.6 x10 Normal 0.0-0.8 [facility] Comment on above: Performed By: #### 1 [id number], 4654669, 11084120 #### [facility] (DEFAULT) [address] [place] [address] 55953 Neut Abs# 5.7 x10 Normal 1.5-9.2 [facility] Comment on above: Performed By: #### 1 [id number], 7606899, 26172681 #### [facility] (DEFAULT) [address] [place] [address] Neutrophils/100 WBC (Bld) 53 % Normal 44-88 [facility] Comment on above: Performed By: #### 1 [id number], 8556889, 95347394 #### [facility] (DEFAULT) [address] [place] [address] Standardon 05-07-2019 eGFR Non AA >60 [facility] Comment on above: Performed By: #### 1 [id number], 1453720, 00271936 #### [facility] (DEFAULT) [address] [place] [address] eGFR AA >60 [facility] Comment on above: Result Comment: Imaging Administrator anna Kidney disease could be indicated at eGFRs of less than 60 ml/min/1.73m2. Kidney Failure is indicated at less than 15 ml/min/1.73m2 Performed By: #### 1 [id number], 8566453, 60219499 #### [facility] (DEFAULT) [address] [place] [address] 60692 Anion gap [Moles/Vol] 13.0 mmol/L Normal 5.0-19.0 [facility] Comment on above: Performed By: #### 1 [id number], 8008386, 64457530 #### [facility] (DEFAULT) [address] [place] [address] 67556 Calcium [Mass/Vol] 9.3 mg/dL Normal 8.9-10.3 [facility] Comment on above: Performed By: #### 1 [id number], 3904745, 72306172 #### [facility] (DEFAULT) [address] [place] [address] 74926 Chloride [Moles/Vol] 100 mmol/L Low 101-111 [facility] Comment on above: Performed By: #### 1 [id number], 9950049, 79655131 #### [facility] (DEFAULT) [address] [place] [address] 31705 CO2 [Moles/Vol] 29 mmol/L Normal 21-32 [facility] Comment on above: Performed By: #### 1 [id number], 1706731, 48643160 #### [facility] (DEFAULT) [address] [place] [address] 02741 Creatinine [Mass/Vol] 0.83 mg/dL Normal 0.60-1.30 [facility] Comment on above: Performed By: #### 1 [id number], 2639330, 88855073 #### [facility] (DEFAULT) [address] [place] [address] 72062 Glucose [Mass/Vol] 119.0 mg/dL High 74.0-118.0 [facility] Comment on above: Performed By: #### 1 [id number], 9023755, 18204681 #### [facility] (DEFAULT) [address] [place] [address] 88321 Osmolality [Osmolality] 280 mOsm/L [facility] Comment on above: Performed By: #### 1 [id number], 3837710, 11875349 #### [facility] (DEFAULT) [address] [place] [address] 64615 Potassium [Moles/Vol] 4.2 mmol/L Normal 3.6-5.1 [facility] Comment on above: Performed By: #### 1 [id number], 1372448, 21002657 #### [facility] (DEFAULT) [address] [place] [address] 85907 Sodium [Moles/Vol] 138.0 mmol/L Normal 136.0-144.0 [facility] Comment on above: Performed By: #### 1 [id number], 3215707, 82737834 #### [facility] (DEFAULT) [address] [place] [address] 08932 Urea nitrogen [Mass/Vol] 21 mg/dL Normal 8-26 [facility] Comment on above: Performed By: #### 1 [id number], 0840539, 08208192 #### [facility] (DEFAULT) [address] [place] [address] 85986 Urea nitrogen/Creatinine [Mass ratio] 25.0 mg/mg High 4.6-16.2 [facility] Comment on above: Performed By: #### 1 [id number], 5172435, 01445511 #### [facility] (DEFAULT) [address] [place] [address] CBC w/ Auto Diffon 0 Erythrocyte distribution width (RBC) [Ratio] 14.5 % Normal 11.5-15.0 [facility] Comment on above: Performed By: #### 7 722334, 77310806, [id number] #### [facility] (DEFAULT) [address] [place] [address] Hematocrit (Bld) [Volume fraction] 40.5 % High 33.7-40.4 [facility] Comment on above: Performed By: #### 7 097466, 34361555, 7041891878 #### [facility] (DEFAULT) [address] [place] [address] 13686 Hemoglobin (Bld) [Mass/Vol] 12.7 g/dL Normal 11.3-15.9 [facility] Comment on above: Performed By: #### 7 043943, 40619204, [id number] #### [facility] (DEFAULT) [address] [place] [address] 36130 Man Diff? Auto Normal [facility] Comment on above: Performed By: #### 7 862970, 91469495, 0685538328 #### [facility] (DEFAULT) [address] [place] [address] 73762 MCH (RBC) [Entitic mass] 28 pg Normal 24-34 [facility] Comment on above: Performed By: #### 7 531528, 81754376, [id number] #### [facility] (DEFAULT) [address] [place] [address] 26040 MCHC (RBC) [Mass/Vol] 31 g/dL Normal 26-37 [facility] Comment on above: Performed By: #### 7 959280, 69447433, [id number] #### [facility] (DEFAULT) [address] [place] [address] 56938 MCV (RBC) [Entitic vol] 91 fL Normal 81-100 [facility] Comment on above: Performed By: #### 7 594498, 62752415, [id number] #### [facility] (DEFAULT) [address] [place] [address] 23016 Platelet mean volume (Bld) [Entitic vol] 9.4 fL Normal 6.3-10.2 [facility] Comment on above: Performed By: #### 7 256815, 89750741, 8608522760 #### [facility] (DEFAULT) [address] [place] [address] 24082 Platelets (Bld) [#/Vol] 275 x10 Normal 138-427 [facility] Comment on above: Performed By: #### 7 783087, 22862231, [id number] #### [facility] (DEFAULT) [address] [place] [address] 76724 RBC (Bld) [#/Vol] 4.45 x10 Normal 3.70-5.30 [facility] Comment on above: Performed By: #### 7 175530, 69066734, [id number] #### [facility] (DEFAULT) [address] [place] [address] 87367 WBC (Bld) [#/Vol] 10.9 x10 High 3.5-10.5 [facility] Comment on above: Performed By: #### 7 507270, 99990364, [id number] #### [facility] (DEFAULT) [address] [place] [address] 67874 Patient Letteron 03-12-2019 Patient Letter [id number]#1.0 0OTGTIFF Normal [facility] Patient Letter [id number] 30 [id number]#1.0 0OTGTIFF Normal [facility] CARDIAC STRESS/REST INJE CTIONon 12-31-2018 [facility] CARDIAC STRESS/REST INJECTION Patient Name: JEANMARIE GARCIA STUDY: MYOCARDIAL PERFUSION STRESS TEST WITH LEXISCAN Performing facility: [facility], [address] [place] [address], [address], [place] [address] [facility] Provider: Sharon Floyd MD, [facility] PCP: Dr. Milton FUENTES SURGEON: DR. Debbi GARCIA Supervising provider: Rui Ford DO, [facility] INDICATION: DM NICM Pre-operative risk assessment for ventral Hernia scheduled at [facility], DATE PENDING HISTORY: Gender: F; Age: 68 y/o ; Height: 162.56 cm; Weight: 96.4615448 kg. High Cholesterol; Diabetes; HTN; COPD; NICM Currently smoking. COMPARISON: No comparison. ACCESSION NUMBER(S): [id number]; [id number]; [id number] ORDERING CLINICIAN: KEVIN FLOYD TECHNIQUE: ONE DAY [...] comparison. Electronically signed by: BERTHA GONZALEZ MD [facility] Coding Summaryon 12-30-2018 Coding Summary CODING DATE: 12/30/2018 [facility] STATUS: Home PAYOR: Medicare ADMIT DX: [...] Mony Vines Date Saved: 12/30/2018 03:13 pm [facility] Outside Recordson 12-25-2018 Outside Records [id number]#1. 00OTGTIFF [facility] Progress Note - Nurseon 11-07 Progress Note - Nurse Chart reviewed by Dr. Palacios no new orders received. [Electronically Signed on: 11/21/2018 14:21 EDT] Yolanda Soto RN [Verified on: 11/21/2018 14:21 EDT] Yolanda Soto RN [facility] Coding Summaryon 11-20-2018 Coding Summary CODING DATE: 11/20/2018 [facility] STATUS: Home PAYOR: Medicare APC DESCRIPTION [...] Justin Date Saved: 11/20/2018 11:29 am Normal [facility] .Auto Diff 1on 11-19-2018 Auto [place] % 5 % Normal 1-12 [facility] Comment on above: Performed By: #### 1 [id number], 8151037, 09995324 #### [facility] (DEFAULT) [address] [place] [address] 13727 Baso Abs# 0.0 x10 Normal 0.0-0.2 [facility] Comment on above: Performed By: #### 1 [id number], 7819574, 66598307 #### [facility] (DEFAULT) [address] [place] [address] 33808 Basophils/100 WBC (Bld) 0.1 % Low 0.2-2.0 [facility] Comment on above: Performed By: #### 1 [id number], 0418889, 39992362 #### [facility] (DEFAULT) [address] [place] [address] 62261 Eos Abs# 1.3 x10 High 0.0-0.4 [facility] Comment on above: Performed By: #### 1 [id number], 9936123, 99826619 #### [facility] (DEFAULT) [address] [place] [address] 17346 Eosinophils/100 WBC (Bld) 11.7 % High 0.9-4.0 [facility] Comment on above: Performed By: #### 1 [id number], 6565260, 75641885 #### [facility] (DEFAULT) [address] [place] [address] 01600 Lymphocytes (Bld) [#/Vol] 2.9 x10 Normal 1.3-2.9 [facility] Comment on above: Performed By: #### 1 [id number], 6356158, 47269540 #### [facility] (DEFAULT) [address] [place] [address] 93616 Lymphocytes/100 WBC (Bld) 26 % Normal 14-48 [facility] Comment on above: Performed By: #### 1 [id number], 9929886, 51118142 #### [facility] (DEFAULT) [address] [place] [address] [place] Abs# 0.5 x10 Normal 0.0-0.8 [facility] Comment on above: Performed By: #### 1 [id number], 6809796, 17969504 #### [facility] (DEFAULT) [address] [place] [address] Neut Abs# 6.4 x10 Normal 1.5-9.2 [facility] Comment on above: Performed By: #### 1 [id number], 6289032, 99858340 #### [facility] (DEFAULT) [address] [place] [address] Neutrophils/100 WBC (Bld) 58 % Normal 44-88 [facility] Comment on above: Performed By: #### 1 [id number], 4887230, 55219115 #### [facility] (DEFAULT) [address] [place] [address] Standardon 11-19-2018 eGFR Non AA 60 mL/min/1.73m2 [facility] Comment on above: Performed By: #### 1 [id number], 9709738, 76106653 #### [facility] (DEFAULT) [address] [place] [address] eGFR AA >60 [facility] Comment on above: Result Comment: Imaging Administrator anna Kidney disease could be indicated at eGFRs of less than 60 ml/min/1.73m2. Kidney Failure is indicated at less than 15 ml/min/1.73m2 Performed By: #### 1 [id number], 8536199, 48066716 #### [facility] (DEFAULT) [address] [place] [address] Anion gap [Moles/Vol] 15.0 mmol/L Normal 5.0-19.0 [facility] Comment on above: Performed By: #### 1 230277245, 0304358, 42817974 #### [facility] (DEFAULT) [address] [place] [address] Calcium [Mass/Vol] 9.5 mg/dL Normal 8.9-10.3 [facility] Comment on above: Performed By: #### 1 535742562, 2496367, 56715285 #### [facility] (DEFAULT) [address] [place] [address] 02846 Chloride [Moles/Vol] 101 mmol/L Normal 101-111 [facility] Comment on above: Performed By: #### 1 [id number], 7667597, 41500533 #### [facility] (DEFAULT) [address] [place] [address] 11819 CO2 [Moles/Vol] 26 mmol/L Normal 21-32 [facility] Comment on above: Performed By: #### 1 [id number], 4110615, 32790412 #### [facility] (DEFAULT) [address] [place] [address] 44412 Creatinine [Mass/Vol] 0.93 mg/dL Normal 0.60-1.30 [facility] Comment on above: Performed By: #### 1 [id number], 1530284, 64926557 #### [facility] (DEFAULT) [address] [place] [address] 25307 Glucose [Mass/Vol] 128.0 mg/dL High 74.0-118.0 [facility] Comment on above: Performed By: #### 1 [id number], 7807246, 41551327 #### [facility] (DEFAULT) [address] [place] [address] 55015 Osmolality [Osmolality] 281 mOsm/L [facility] Comment on above: Performed By: #### 1 214549580, 4731831, 88313222 #### [facility] (DEFAULT) [address] [place] [address] 09391 Potassium [Moles/Vol] 4.2 mmol/L Normal 3.6-5.1 [facility] Comment on above: Performed By: #### 1 089438498, 9728213, 73759306 #### [facility] (DEFAULT) [address] [place] [address] 61722 Sodium [Moles/Vol] 138.0 mmol/L Normal 136.0-144.0 [facility] Comment on above: Performed By: #### 1 038536093, 2721042, 23941168 #### [facility] (DEFAULT) [address] [place] [address] 27771 Urea nitrogen [Mass/Vol] 22 mg/dL Normal 8-26 [facility] Comment on above: Performed By: #### 1 [id number], 5891313, 85210070 #### [facility] (DEFAULT) [address] [place] [address] Urea nitrogen/Creatinine [Mass ratio] 24.0 mg/mg High 4.6-16.2 [facility] Comment on above: Performed By: #### 1 [id number], 4223026, 29549018 #### [facility] (DEFAULT) [address] [place] [address] CBC w/ Auto Diffon 9 Erythrocyte distribution width (RBC) [Ratio] 14.9 % Normal 11.5-15.0 [facility] Comment on above: Performed By: #### 1 [id number], 7764579, 07549921 #### [facility] (DEFAULT) [address] [place] [address] Hematocrit (Bld) [Volume fraction] 39.4 % Normal 33.7-40.4 [facility] Comment on above: Performed By: #### 1 [id number], 3966173, 41214072 #### [facility] (DEFAULT) [address] [place] [address] 42386 Hemoglobin (Bld) [Mass/Vol] 12.4 g/dL Normal 11.3-15.9 [facility] Comment on above: Performed By: #### 1 780221885, 7038357, 01947133 #### [facility] (DEFAULT) [address] [place] [address] Man Diff? Auto Normal [facility] Comment on above: Performed By: #### 1 [id number], 3063296, 12241853 #### [facility] (DEFAULT) [address] [place] [address] 55267 MCH (RBC) [Entitic mass] 29 pg Normal 24-34 [facility] Comment on above: Performed By: #### 1 [id number], 7279397, 41598646 #### [facility] (DEFAULT) [address] [place] [address] 14803 MCHC (RBC) [Mass/Vol] 32 g/dL Normal 26-37 [facility] Comment on above: Performed By: #### 1 [id number], 7693133, 30330760 #### [facility] (DEFAULT) [address] [place] [address] 16501 MCV (RBC) [Entitic vol] 91 fL Normal 81-100 [facility] Comment on above: Performed By: #### 1 [id number], 4497187, 31456971 #### [facility] (DEFAULT) [address] [place] [address] 24316 Platelet mean volume (Bld) [Entitic vol] 9.3 fL Normal 6.3-10.2 [facility] Comment on above: Performed By: #### 1 047369938, 6247713, 72361523 #### [facility] (DEFAULT) [address] [place] [address] 22096 Platelets (Bld) [#/Vol] 278 x10 Normal 138-427 [facility] Comment on above: Performed By: #### 1 [id number], 5507394, 83844991 #### [facility] (DEFAULT) [address] [place] [address] 57511 RBC (Bld) [#/Vol] 4.34 x10 Normal 3.70-5.30 [facility] Comment on above: Performed By: #### 1 [id number], 2915435, 33964895 #### [facility] (DEFAULT) [address] [place] [address] 44266 WBC (Bld) [#/Vol] 11.2 x10 High 3.5-10.5 [facility] Comment on above: Performed By: #### 1 [id number], 5307445, 48679802 #### [facility] (DEFAULT) [address] [place] [address] 36741 PROGRESSon 07-19-2017 PROGRESS HNO ID: [id number]: Patrick (Pa) GrantService: (none)Author Type: Physician AssistantType: Progress NotesFiled: 07/20/2017 10:27 AMNote Text: [facility] NOTENAME: ELMA GARCIA NO.: [id number] OF SERVICE: 07/19/2017Irina Summers OF : August [...] SYSTEMS: Please see above.MEDICATIONS: Reviewed in the [facility] record.CODE STATUS: Full code.PHYSICAL EXAMINATION: Revealed middle-aged [...] supportive care.DICTATED BY: AIDEE López/AcusisD: 018 JOB# [id number]:Irina Caalectronically Signed by Celina Judd PA-C at 07/20/2017 10:16:25 Normal [facility] PROGRESSon 06-07-2017 PROGRESS HNO ID: [id number]: Fatmata Sharmaervice: (none)Author Type: PhysicianType: Progress NotesFiled: 06/08/2017 4:57 PMNote Text: [facility] NOTENAME: PATRICIO GARCIA NO.: [id number] [facility] SERVICE: [facility]07/2017[facility] 1950Shtari is sitting up [...] regimen.DICTATED BY: Fatmata Casey MDIAE/AcusisD:06/08/19 18 JOB# [id number]:[facility] Signed by Fatmata Casey MD at 06/08/2017 16:46:12 Normal [facility] PROGRESSon 05-17-2017 PROGRESS HNO ID: [id number]: Celina Dorantes) GrantService: (none)Author Type: Physician AssistantType: Progress NotesFiled: 05/18/2017 10:17 AMNote Text: [facility] NOTENAME: PATRICIO GARCIA NO.: [id number] OF SERVICE: 05/17/2017[facility] May 7, 1951CHIEF COMPLAINT: Followup diabetes.SUBJECTIVE FINDINGS: The patient was seen in her room at [facility] followup visit. She reported that she was doing well in [facility]. She had been admitted here approximately 1 month ago. Shecontinued to smoke on occasion, although she stated she was trying toquit. Nurses reported her to be eating and drinking well. There was noevidence of seizure activity. She reported that her appetite was goodand bowels regular.REVIEW OF SYSTEMS: Please see above.FAMILY/SOCIAL HISTORY: Unchanged.MEDICATIONS: Reviewed in the [facility] record. Code status is fullcode.PHYSICAL EXAMINATION: Temperature [...] well controlled since she has been in [facility].2. Seizure disorder. No recent seizure [...] the facility.DICTATED BY: AIDEE López/AcusisD: 018 JOB# [id number]:[facility] Signed by Celina Judd PA-C at 05/18/2017 10:09:27 Normal [facility] PROGRESSon 05-08-2017 PROGRESS HNO ID: [id number]: Fatmata Flanagan ErenService: (none)Author Type: PhysicianType: Progress NotesFiled: 05/09/2017 3:47 PMNote Text: [facility] NOTENAME: PATRICIO GARCIA NO.: [id number] OF SERVICE: 05/08/2017Irina Summers OF : 1950New Patient History and PhysicalHISTORY OF PRESENT ILLNESS: The patient is a 66-year-old female who wasadmitted to us directly from her custodial with a diagnosis of seizuredisorder, diabetes mellitus type 2, remote history of DVT, previousgoiter resection with hypothyroidism, history of MRDD, history ofhyponatremia, ongoing smoking history, and hyperlipidemia. Sheapparently did not like living at her community custodial and istherefore now being admitted to our [...] closely.DICTATED BY: Fatmata Casey MDIAE/AcusisD:05/08/19 18 JOB# [id number]:[place] [facility] Vital Signs Date Time Vital Sign Value Performing Clinician Janes hayes 09-17-2023 11:50-0400 Body temperature 98.2 [degF] Keysha Reynoso MD Work Phone: [facility] 09-17-2023 11:50-0400 Diastolic blood pressure 81 mm[Hg] Keysha Reynoso MD [facility]: [facility] 09-17-2023 11:50-0400 Heart rate 76 /min Keysha Reynoso MD Work Phone: [facility] 09-17-2023 11:50-0400 Respiratory rate 18 /min Keysha Reynoso MD Work Phone: [facility] 09-17-2023 11:50-0400 SaO2% (BldA) [Mass fraction] 91 % Keysha Reynoso MD Work Phone: [facility] 09-17-2023 11:50-0400 Systolic blood pressure 138 mm[Hg] Keysha Reynoso MD Work Phone: [facility] 09-17-2023 03:00-0400 Body mass index (BMI) [Ratio] 33.34 kg/m2 Keysha Reynoso MD Work Phone: [facility] 09-17-2023 03:00-0400 Body weight 88.1 kg Keysha Reynoso MD Work Phone: [facility] 09-16-2023 10:58-0400 Body height 162.6 cm Keysha Reynoso MD Work Phone: [facility] Encounters Encounter Date Encounter Type Care Provider Facility Start: 05-06-2024 End: 05-06-2024 ambulatory [facility] [place] Start: 09-18-2023 End: 09-18-2023 [facility] Start: 09-15-2023 End: 09-18-2023 Emergency department patient visit FRANKO WH[facility] Start: 09-15-2023 End: 09-17-2023 [facility] Start: 09-15-2023 End: 09-17-2023 Emergency department patient visit Franko White Work Phone: [address] Comment on above: Foreign body in bron chus, initial encounter (Primary Dx) Start: 09-15-2023 End: 09-18-2023 Emergency department patient visit GERALD BARBER [facility] Start: 08-30-2023 ambulatory DELMA NUNN [place] [place] Start: 08-30-2023 End: 08-30-2023 ambulatory DELMA NUNN [place] Start: 05-31-2023 End: 06-01-2023 ambulatory DELMA NUNN [place] Start: 05-31-2023 End: 05-31-2023 Patient encounter procedure DELMA NUNN [facility] Start: 02-14-2022 End: 02-14-2022 ambulatory Austin Head Facility:[facility] Start: 10-25-2021 ambulatory Gerald Fuentes Facilit y:[facility] Start: 09-01-2021 End: 09-06-2021 Evaluation and management of inpatient Services [facility] Facility:[facility] Start: 08-26-2021 End: 08-26-2021 ambulatory Cayla Fitt Other [employer] Other Start: 08-26-2021 Telephone encounter Cayla Fitt [facility] Start: 08-24-2021 End: 08-24-2021 ambulatory Services [facility] Facility:[facility] Start: 08-23-2021 End: 08-25-2021 ambulatory Services [facility] Facility:[facility] Start: 05-11-2021 End: 05-11-2021 ambulatory Cayla Fitt Other [employer] Other Start: 05-11-2021 Telephone encounter Cayla Fitt [facility] Start: 04-20-2021 End: 04-20-2021 ambulatory Cayla Fitt Other [employer] Other Start: 04-20-2021 Telephone encounter Cayla Fitt [facility] Start: 04-12-2021 End: 04-12-2021 ambulatory Cayla Fitt Other [employer] Other Start: 04-12-2021 Telephone encounter Cayla Fitt [facility] Procedures Date Procedure Procedure Detail Performing Clinician [...] Work Phone: Start: 09-15-2023 Comprehensive metabolic panel [facility] DO Work Phone: Start: 09-15-2023 Ct thorax w/o contra st material [facility] DO Work Phone: Start: 12-31-2018 Echocardiography Plan of Treatment Date Care Activity Detail Author Bacteria identified in Sputum by Respiratory culture Lower resp/sputum culture inc gram stain: Patient acquired Microbiology Routine 09/16/2023 3:08 PM EDT [facility] Cytology Cytology Patholo gy and Cytology Routine Release Upon Ordering for 1 Occurrences starting 09/16/2023 [facility] Work Phone: Comment on above: Release Upon Orderin g for 1 Occurrences starting 09/16/2023 Fungus identified in Unspecified specimen by Culture Fungal culture includes fungal smear Microbiology Routine 09/16/2023 3:08 PM EDT [facility] Mycobacterium sp identified in Unspecified specimen by Organism specific culture AFB culture concentrated includes AFB smear Microbiology Routine 09/16/2023 3:08 PM EDT [facility] Immunizations Immunization Date Immunization Notes Care Provider Fa danilo 02-03-2022 influenza, injectabl e, quadrivalent, contains preservative Keysha Reynoso MD Work Phone: [facility] 01-25-2021 influenza, injectabl e, quadrivalent, contains preservative Keysha Reynoso MD Work Phone: [facility] 12-09-2019 influenza, seasonal, injectable Keysha Reynoso MD Work Phone: [facility] 04-09-2019 pneumococcal polysaccharide vaccine, 23 valent Keysha Reynoso MD Work Phone: [facility] 02-06-2017 influenza, injectabl e, quadrivalent, preservative free Keysha Reynoso MD Work Phone: [facility] 05-10-2016 influenza, injectabl e, quadrivalent, contains preservative Keysha Reynoso MD Work Phone: [facility] 05-10-2016 pneumococcal polysaccharide vaccine, 23 valent Keysha Reynoso MD Work Phone: [facility] Payers Date Payer Category Payer Unknown [id number] 2020 Self-pay 2020 Medicaid MEDICAID [facility] M EDICAID [id number] 2020-Present [phone] [address] [place] [address] [id number] 2020 Medicaid [id number] 2017 Medicare MEDICARE MEDICAR E PART A & B [id number] 2017-Present [phone] [address] [place] [address] [id number] 2017 Medicare [id number] 1952 Unknown [id number] [id number] 1952 Unknown [id number] [id number] 1952 Unknown [id number] [id number] 1952 Unknown [id number] [id number] 1952 Unknown [id number] [id number] 1952 Unknown [id number] [id number] 1952 Unknown [id number] [id number] 1952 Unknown [id number] [id number] 1952 Unknown [id number] [id number] Unknown [id number] [id number] Unknown [id number] [id number] Unknown [id number] [id number] Unknown [id number] [id number] Unknown [id number] Social History Date Type Detail Facility Start: 05-20-2020 End: 09-16-2023 Sex Assigned At [facility] Tobacco smoking status No Smokin g Status Entered [facility] Start: 04-09-1977 [facility] Start: 04-09-1977 History of tobacco use [facility] Start: 05-20-2020 End: 09-16-2023 Cigarettes smoked current (pack per day) - [facility]5 [facility] Start: 09-16-2023 Tobacco use and exposure Smokeless tobacco non-user [facility] Start: 09-17-2023 Alcoholic beverage intake Current drinker of alcohol (finding) [facility] Has the [employer], [employer], [employer], or water company threatened to shut off services in your home in past 12Mo No [facility] Adolescent depressio n screening assessment 2 [facility] Start: 09-16-2023 Alcohol Comment occasionally [employer] Start: 1950 Sex assigned at Not on file [facility] Goals Date Patient Goal Desired Activity /State [...] Units Date/Time Fungal culture includes fungal smear [[id number]] Collected: 09/16/23 1508 Specimen: Bronchial Alveolar Lavage from Lung, Right Middle Lobe Updated: 09/17/23 1057 Lower resp/sputum culture inc gram stain: Patient acquired [[id number]] Collected: 09/16/23 1508 Specimen: Bronchial Alveolar Lavage from Lung, Right Middle Lobe Updated: 09/17/23 1122 AFB culture concentrated includes AFB smear [[id number]] Collected: 09/16/23 1508 Specimen: Bronchial Alveolar Lavage [...] progress note was completed using a voice motor boss system. Every effort was made to ensure accuracy. However, inadvertent computerized motor boss errors may be present. Chito Will MD PGY-3 Internal Medicine [facility] 09/17/23 1:00 PM Associated attestation - [...] switch unasyn to augmentin. Amy Montague DO. [facility] Sleep Pulmonary / Critical Care Pager: [phone] Images from the original note were not included. [facility] Hospital[facility] Progress Note 09/16/2023 Patient [...] fluid -patient will require swallow study with DIMENSIONAL ENGINEER after bronchoscopy -DVT Prophylaxis: Low risk a prolonged stay will continue -GI Prophylaxis: Not indicated -Code Status: Full code Disposition: Bronchoscopy today, will require DIMENSIONAL ENGINEER evaluation afterward, if continues to be on [...] correct any mistakes. documented in this encounter [facility] 09-17-2023 Progress note Formatting of t his note is different from the original. Images from the original note were not included. DISCHARGE PLANNING NOTE Parking Enforcement Manager met with patient, introduced self, and explained role. Patient educated on safe discharge plan. Pt admitted 09/15/2023 with Foreign body in bronchus, initial encounter [T17.508A] per chart review. Past Medical History: Diagnosis Date Anemia Atherosclerotic heart disease of [place] coronary artery without angina pectoris COPD (chronic obstructive pulmonary disease) ([facility] CVA (cerebral vascular accident) ([facility]) Diabetes mellitus type 2, controlled ([facility]) GERD (gastroesophageal reflux disease) Hyperlipidemia Hypertension Hypothyroidism Major depressive disorder Muscle weakness Non-ischemic cardiomyopathy ([facility]) Obesity Other lack of coordination Other symbolic dysfunctions Schizoaffective disorder ([facility]) Schizophrenia ([facility]) Tremor Unspecified disorder of psychological development Prior to admission patient was living at [facility] in [facility]. Patient reports [place] staff assists her with all ADLs as needed. AL provides all meals and medication administration per patient report. Medical equipment patient used prior to admission includes: Walker - Standard. Patient denies need for transportation/ food/ prescription medication assistance resources. CN contacted [facility], spoke with Alessandra RN, and updated her on anticipated discharge today. Alessandra HAYWARD spoke with [facility] management and they determined they can accept patient back with dysphagia diet and possible home O2- awaiting O2 evaluation. AL requesting transport be arranged home for patient. CN contacted patient's legal guardian, Marah Mae, to confirm discharge planning. Marah agreeable for patient to return to [facility]. Legal guardian information given by NE and added to demographics. Requested MD call legal guardian for medical updates. Discharge order is in. Tasked [facility] transport back to [facility] d/t mental diagnoses. Await transport time confirmation. CRF and ST note faxed to [facility] per request. Contacted [facility] and updated RN that patient does not qualify for home O2. AL also informed to transport time- 5pm. PCP: MADHURI REZA DO Pharmacy: [facility] [place], [place] - confirmed pharmacy with Alessandra Hayward from [facility] MADHURI REZA DO added to Follow Up Providers for Summary of Care communication. Current discharge plan is: Discharge home with self care when medically ready Services Requested: Services Requested Discharge Disposition: Assisted Living Assisted Living Name: [facility] Does the patient need discharge transportation arranged?: Yes Transportation Arranged: Ambulance Mobility issues discussed with transportation provider: Yes Patient choice offered: Yes Initial DC Assessment Completed: Yes Goals: Goals Patient Stated return home (pt-stated) Evaluation of progress towards goal: patient/ guardian are agreeable for patient to return home. [facility] able to accept patient back. Will continue to follow as plan of care develops. Please feel free to reach out for any discharge planning questions. - Dilcia Ulloa RN 09/17/23 2:44 PM [facility] 09-17-2023 Miscellaneous Notes Images from the original note were not included. DISCHARGE PLANNING NOTE Parking Enforcement Manager met with patient, introduced self, and explained role. Patient educated on safe discharge plan. Pt admitted 09/15/2023 with Foreign body in bronchus, initial encounter [T17.508A] per chart review. Past Medical History: Diagnosis Date Anemia Atherosclerotic heart disease of [place] coronary artery without angina pectoris COPD (chronic obstructive pulmonary disease) ([facility]) CVA (cerebral vascular accident) ([facility]) Diabetes mellitus type 2, controlled ([facility]) GERD (gastroesophageal reflux disease) Hyperlipidemia Hypertension Hypothyroidism Major depressive disorder Muscle weakness Non-ischemic cardiomyopathy ([facility]) Obesity Other lack of coordination Other symbolic dysfunctions Schizoaffective disorder ([facility]) Schizophrenia ([facility]) Tremor Unspecified disorder of psychological development Prior to admission patient was living at [facility] in [facility]. Patient reports [facility] staff assists her with all ADLs as needed. AL provides all meals and medication administration per patient report. Medical equipment patient used prior to admission includes: Walker - Standard. Patient denies need for transportation/ food/ prescription medication assistance resources. CN contacted [facility], spoke with Alessandra HAYWARD, and updated her on anticipated discharge today. Alessandra RN spoke with [facility] management and they determined they can accept patient back with dysphagia diet and possible home O2- awaiting O2 evaluation. AL requesting transport be arranged home for patient. CN contacted patient's legal guardian, Marah Mae, to confirm discharge planning. Marah agreeable for patient to return to [facility]. Legal guardian information given by NE and added to demographics. Requested MD call legal guardian for medical updates. Discharge order is in. Tasked [facility] transport back to [facility] d/t mental diagnoses. Await transport time confirmation. CRF and ST note faxed to [facility] per request. Contacted [facility] and updated RN that patient does not qualify for home O2. AL also informed to transport time- 5pm. PCP: MADHURI REZA DO Pharmacy: [email or web address] [place], [place] - confirmed pharmacy with Alessandra Hayward [...] Description: INTERVENTIONS: 1. Encourage patient or legal procurement representative to report early pain and ask [...] per policy 9. Teach patient or legal procurement representative interventions for comforting Outcome: Progressing Note: [...] at the bedside 7. Instruct patient/ patient procurement representative about use of safety devices 8. Include patient/ patient procurement representative in decisions related to safety Outcome: [...] hygiene technique 7. Identify and instruct patient/patient procurement representative in use of appropriate isolation precautions for identified infection/symptoms 8. Provide and discuss with patient/patient procurement representative on educational MDRO sheet 9. Encourage and monitor nutritional status daily and consult package delivery room service runner if indicated 10. Implement neutropenic guidelines as needed 11. Review exposure to history of communicable disease and recent travel history on admission 12. Encourage annual influenza vaccine 13. Encourage pneumonia vaccine Outcome: Progressing Note: Evaluation of progress towards goal: On antibiotics, monitoring for increased signs and symptoms of infection. Problem: Knowledge Deficit Goal: Patient/patient procurement representative demonstrates understanding of disease process, treatment [...] be free from fall Description: Interventions: 1. [place] to environment 2. Hourly rounds addressing the [...] non-skid footwear 11. Teach patient and patient procurement representative to maintain environment for safety and [...] (cane, walker) within reach 19. Request patient procurement representative bring adaptive equipment/mobility aids from home or obtain and provide as needed 20. Consult pharmacy regarding effects of med's affecting mobility, cognition, and alternatives 21. Obtain physician order for PT if risk factors associated with mobility are present 22. Obtain physician order for OT as appropriate 23. Utilize diversional activities 24. Educate patient and patient procurement representative how to maintain a safe environment during visitation times (notify nurse prior to leaving bedside) 25. Consider appropriateness of medical or non-medical psychotherapist 26. Set up voiding schedule as appropriate [...] discharge planning process 5. Communicate referral to breastfeeding educator as appropriate 6. Communicate referral to package delivery room service runner as appropriate 7. Collaborate with case management/dialysis social worker for discharge needs Outcome: Progressing [...] contact us with any questions or concerns. [facility] Blood Management/ Bloodless Care [facility] [address] [place] [address] Office: [phone] Problem: Pain Goal: Patient goal is pain score less than 4, able to rest, and participant in treatment plan as appropriate Description: INTERVENTIONS: 1. Encourage patient or legal procurement representative to report early pain and ask [...] per policy 9. Teach patient or legal procurement representative interventions for comforting Outcome: Progressing Note: [...] at the bedside 7. Instruct patient/ patient procurement representative about use of safety devices 8. Include patient/ patient procurement representative in decisions related to safety Outcome: [...] hygiene technique 7. Identify and instruct patient/patient procurement representative in use of appropriate isolation precautions for identified infection/symptoms 8. Provide and discuss with patient/patient procurement representative on educational MDRO sheet 9. Encourage and monitor nutritional status daily and consult package delivery room service runner if indicated 10. Implement neutropenic guidelines as needed 11. Review exposure to history of communicable disease and recent travel history on admission 12. Encourage annual influenza vaccine 13. Encourage pneumonia vaccine Outcome: Progressing Note: Evaluation of progress towards goal: infection prevention Problem: Knowledge Deficit Goal: Patient/patient procurement representative demonstrates understanding of disease process, treatment [...] Description: INTERVENTIONS: 1. Encourage patient or legal procurement representative to report early pain and ask [...] per policy 9. Teach patient or legal procurement representative interventions for comforting Outcome: Progressing Note: [...] at the bedside 7. Instruct patient/ patient procurement representative about use of safety devices 8. Include patient/ patient procurement representative in decisions related to safety Outcome: Progressing Note: Evaluation of progress towards goal: safety maintained, uses call light appropriately Problem: Knowledge Deficit Goal: Patient/patient procurement representative demonstrates understanding of disease process, treatment [...] swallow. Discharge planning. Dr. Amy Montague DO. [facility] Office: [phone] Roy last evening. Discussed [...] consult to follow Dr. Amy Montague DO. [facility] Office: [phone] with ER staff. Agree there [...] her own tonight. documented in this encounter [facility] 09-17-2023 Hospital course Narrative Images from the original note were not included. [facility]- Hospital Medicine Discharge Summary Patient's [...] her legal guardian Marah Mae phone # [phone] over the phone regarding overall plan. Discharge [...] These medications were sent to [facility] of [address] [id number] amoxicillin-pot clavulanate 875-125 mg per tablet For [...] Bite Sized diet Madhuri Reza DO [address] [facility] [id number] Information Provided to the Patient: Patient given copy of Discharge Instructions, patient hospital stay was discussed. No special instructions. I have spent 35 minutes coordinating and preparing this discharge. I have discussed the patient's hospitalization course, treatment plan and follow up instructions with patient. I have answered all the patient's questions. Electronically signed by: KEYSHA REYNOSO MD [facility] Hospitalists, Department of Internal Medicine [...] escaped final proofreading documented in this encounter [facility] 09-17-2023 Progress note Formatting of t his note might be different from the original. DISCHARGE PLANNING NOTE BLS to [facility] at 5 PM. Confirmed in [facility]. [facility] 09-17-2023 Plan of care note Problem: Pain Goal: Patient goal is pain score less than 4, able to rest, and participant in treatment plan as appropriate Description: INTERVENTIONS: 1. Encourage patient or legal procurement representative to report early pain and ask [...] per policy 9. Teach patient or legal procurement representative interventions for comforting Outcome: Progressing Note: [...] at the bedside 7. Instruct patient/ patient procurement representative about use of safety devices 8. Include patient/ patient procurement representative in decisions related to safety Outcome: [...] hygiene technique 7. Identify and instruct patient/patient procurement representative in use of appropriate isolation precautions for identified infection/symptoms 8. Provide and discuss with patient/patient procurement representative on educational MDRO sheet 9. Encourage and monitor nutritional status daily and consult package delivery room service runner if indicated 10. Implement neutropenic guidelines as needed 11. Review exposure to history of communicable disease and recent travel history on admission 12. Encourage annual influenza vaccine 13. Encourage pneumonia vaccine Outcome: Progressing Note: Evaluation of progress towards goal: On antibiotics, monitoring for increased signs and symptoms of infection. Problem: Knowledge Deficit Goal: Patient/patient procurement representative demonstrates understanding of disease process, treatment [...] Score of =/> 25 or indicated by [facility] Assessment Goal: Patient should be free from fall Description: Interventions: 1. [place] to environment 2. Hourly rounds addressing the [...] non-skid footwear 11. Teach patient and patient procurement representative to maintain environment for safety and [...] (cane, walker) within reach 19. Request patient procurement representative bring adaptive equipment/mobility aids from home or obtain and provide as needed 20. Consult pharmacy regarding effects of med's affecting mobility, cognition, and alternatives 21. Obtain physician order for PT if risk factors associated with mobility are present 22. Obtain physician order for OT as appropriate 23. Utilize diversional activities 24. Educate patient and patient procurement representative how to maintain a safe environment during visitation times (notify nurse prior to leaving bedside) 25. Consider appropriateness of medical or non-medical psychotherapist 26. Set up voiding schedule as appropriate [...] discharge planning process 5. Communicate referral to breastfeeding educator as appropriate 6. Communicate referral to package delivery room service runner as appropriate 7. Collaborate with case management/dialysis social worker for discharge needs Outcome: Progressing Note: Evaluation of progress towards goal: Monitoring blood sugars [facility] 09-17-2023 Progress note Formatting of t [...] contact us with any questions or concerns. [facility] Blood Management/ Bloodless [facility] [address] [place] [address] Office: [phone] [facility] 09-17-2023 Nurse Note Pt being monitored in [employer]. Awaiting transport. [facility] 09-17-2023 Nurse Note Pt being monitored in [employer]. Awaiting transport. documented in this encounter [facility] 09-16-2023 Plan of care note Problem: Pain Goal: Patient goal is pain score less than 4, able to rest, and participant in treatment plan as appropriate Description: INTERVENTIONS: 1. Encourage patient or legal procurement representative to report early pain and ask [...] per policy 9. Teach patient or legal procurement representative interventions for comforting Outcome: Progressing Note: [...] at the bedside 7. Instruct patient/ patient procurement representative about use of safety devices 8. Include patient/ patient procurement representative in decisions related to safety Outcome: [...] hygiene technique 7. Identify and instruct patient/patient procurement representative in use of appropriate isolation precautions for identified infection/symptoms 8. Provide and discuss with patient/patient procurement representative on educational MDRO sheet 9. Encourage and monitor nutritional status daily and consult package delivery room service runner if indicated 10. Implement neutropenic guidelines as needed 11. Review exposure to history of communicable disease and recent travel history on admission 12. Encourage annual influenza vaccine 13. Encourage pneumonia vaccine Outcome: Progressing Note: Evaluation of progress towards goal: infection prevention Problem: Knowledge Deficit Goal: Patient/patient procurement representative demonstrates understanding of disease process, treatment plan, medications, and discharge instructions Description: INTERVENTIONS 1. Complete learning assessment and assess knowledge base 2. Provide teaching at level of understanding 3. Provide teaching via preferred learning method(s) Outcome: Progressing Note: Evaluation of progress towards goal: gen knowledge [facility] 09-16-2023 Plan of care note Problem: Pain Goal: Patient goal is pain score less than 4, able to rest, and participant in treatment plan as appropriate Description: INTERVENTIONS: 1. Encourage patient or legal procurement representative to report early pain and ask [...] per policy 9. Teach patient or legal procurement representative interventions for comforting Outcome: Progressing Note: [...] at the bedside 7. Instruct patient/ patient procurement representative about use of safety devices 8. Include patient/ patient procurement representative in decisions related to safety Outcome: Progressing Note: Evaluation of progress towards goal: safety maintained, uses call light appropriately Problem: Knowledge Deficit Goal: Patient/patient procurement representative demonstrates understanding of disease process, treatment plan, medications, and discharge instructions Description: INTERVENTIONS 1. Complete learning assessment and assess knowledge base 2. Provide teaching at level of understanding 3. Provide teaching via preferred learning method(s) Outcome: Progressing Note: Evaluation of progress towards goal: bronch complete, monitor swallowing [facility] 09-16-2023 Procedure note Images from the [...] swallow. Discharge planning. Dr. Amy Montague DO. [facility] Pulmonary [facility] Critical Care Office: [phone] [facility] 09-16-2023 Attending History and physical note HISTORY AND PHYSICAL INTERVAL NOTE: Jeanmarie M Jose 1950 [id number] H&P reviewed. The patient was examined and [...] Diagnosis Date Anemia Atherosclerotic heart disease of [place] coronary artery without angina pectoris COPD (chronic obstructive pulmonary disease) ([facility]) CVA (cerebral vascular accident) ([facility]) Diabetes mellitus type 2, controlled ([facility]) GERD (gastroesophageal reflux disease) Hyperlipidemia Hypertension Hypothyroidism Major depressive disorder Muscle weakness Non-ischemic cardiomyopathy ([facility]) Obesity Other lack of coordination Other symbolic dysfunctions Schizoaffective disorder ([facility]) Schizophrenia ([facility]) Tremor Unspecified disorder of [...] retrieval Chito Will MD PGY-3 Internal Medicine [facility] This consult note was completed using a voice motor boss system. Every effort was made to ensure accuracy. However, inadvertent computerized motor boss errors may be present. [facility] Work Phone: 09-16-2023 History and physical note HISTORY AND PHYSICAL INTERVAL NOTE: Jeanmarie Garcia 1950 [id number] H&P reviewed. The patient was examined and [...] Diagnosis Date Anemia Atherosclerotic heart disease of [place] coronary artery without angina pectoris COPD (chronic obstructive pulmonary disease) ([facility]) CVA (cerebral vascular accident) ([facility]) Diabetes mellitus type 2, controlled ([facility]) GERD (gastroesophageal reflux disease) Hyperlipidemia Hypertension Hypothyroidism Major depressive disorder Muscle weakness Non-ischemic cardiomyopathy ([facility]) Obesity Other lack of coordination Other symbolic dysfunctions Schizoaffective disorder ([facility]) Schizophrenia ([facility]) Tremor Unspecified disorder of [...] retrieval Chito Will MD PGY-3 Internal Medicine [facility] This consult note was completed using a voice motor boss system. Every effort was made to ensure accuracy. However, inadvertent computerized motor boss errors may be present. [facility] History and Physical 09/15/2023 [...] pedis pulses present and equal bilaterally Skin: [place], warm, dry; no rashes or lesions Neurologic: [...] Electronically signed by: MD Smita FERREIRA M.D. [facility] This note was completed using a voice motor boss system. Every effort was made to ensure accuracy. However, inadvertent computerized motor boss errors may be present. documented in this encounter [facility] 09-16-2023 Consult note Associated Order (s): [...] Diagnosis Date Anemia Atherosclerotic heart disease of [place] coronary artery without angina pectoris COPD (chronic obstructive pulmonary disease) ([facility]) CVA (cerebral vascular accident) ([facility]) Diabetes mellitus type 2, controlled ([facility]) GERD (gastroesophageal reflux disease) Hyperlipidemia Hypertension Hypothyroidism Major depressive disorder Muscle weakness Non-ischemic cardiomyopathy ([facility]) Obesity Other lack of coordination Other symbolic dysfunctions Schizoaffective disorder ([facility]) Schizophrenia ([facility]) Tremor Unspecified disorder of [...] retrieval Chito Will MD PGY-3 Internal Medicine [facility] This consult note was completed using a voice motor boss system. Every effort was made to ensure accuracy. However, inadvertent computerized motor boss errors may be present. Associated attestation - [...] to Augmentin at discharge. Amy Montague DO. [facility] Pulmonary / Critical Care Pager: [phone] [facility] 09-16-2023 Consult note Associated Order (s): [...] Diagnosis Date Anemia Atherosclerotic heart disease of [place] coronary artery without angina pectoris COPD (chronic obstructive pulmonary disease) ([facility]) CVA (cerebral vascular accident) ([facility]) Diabetes mellitus type 2, controlled ([facility]) GERD (gastroesophageal reflux disease) Hyperlipidemia Hypertension Hypothyroidism Major depressive disorder Muscle weakness Non-ischemic cardiomyopathy ([facility]) Obesity Other lack of coordination Other symbolic dysfunctions Schizoaffective disorder ([facility]) Schizophrenia ([facility]) Tremor Unspecified disorder of [...] retrieval Chito Will MD PGY-3 Internal Medicine [facility] This consult note was completed using a voice motor boss system. Every effort was made to ensure accuracy. However, inadvertent computerized motor boss errors may be present. Associated attestation - [...] to Augmentin at discharge. Amy Montague DO. [facility] Pulmonary / Critical Care Pager: [phone] documented in this encounter [facility] 09-16-2023 Note XR CHEST 1 VW Procedure: Chest x-ray performed Number of views:AP portable upright History:Cough Comparison:None Findings: The heart and lungs show no acute findings, and the mediastinum and marbiel are grossly negative . Impression: No acute change. Finalized by Leilani Rizo DO on 09/16/2023 8:39 AM [facility] 09-16-2023 Note Procedure: Chest x-ray performed Number of views:AP portable upright History:Cough Comparison:None Findings: The heart and lungs show no acute findings, and the mediastinum and maribel are grossly negative . Impression: No acute change. Finalized by Leilani Rizo DO on 09/16/2023 8:39 AM [facility] 09-16-2023 Progress note Formatting of [...] consult to follow Dr. Amy Montague DO. [facility] Office: [phone] [facility] 09-15-2023 Emergency department Note Dave Jeter wants report when patient is admitted and on the floor. Ask for Ilana [phone]. [facility] 09-15-2023 Emergency department Note Dave Jeter wants report when patient is admitted and on the floor. Ask for Ilana [phone]. Images from the original note were not included. History Chief Complaint Patient presents with Choking Foreign Body in Throat 35-year-old female who presented to [facility] via EMS after choking on chicken [...] made aware of patient's current visit to [facility]. Amount and/or Complexity of Data Reviewed Labs: ordered. Radiology: ordered. Risk Prescription drug management. I, René Monroe (scribe), documented on behalf of Dr. White. 0188 Jeanmarie Garcia is a 73 y.o. female [...] signing this emergency patient record, the Emergency Physician/WOOD MILLING MACHINE TENDER/PA-C attests that all entries made into the electronic medical record by azeem Villavicencio prior to the Physician/WOOD MILLING MACHINE TENDER/PA-C signature reflect an accurate accounting of the evaluation and care rendered by that Emergency Physician/WOOD MILLING MACHINE TENDER/PA-C. The Emergency Physician/WOOD MILLING MACHINE TENDER/PA-C assumes full responsibility for those entries. The Emergency Physician/WOOD MILLING MACHINE TENDER/PA-C also attests that any patient testing or treatment that was instituted by nursing staff in accordance to Emergency Department Preemptive Guidelines have been reviewed and unless so stated elsewhere in this patient chart, the Physician/WOOD MILLING MACHINE TENDER/PA-C agrees with the testing and care provided. [...] signing this emergency patient record, the Emergency Physician/WOOD MILLING MACHINE TENDER/PA-C attests that all entries made into the electronic medical record by the scribe prior to the Physician/WOOD MILLING MACHINE TENDER/PA-C signature reflect an accurate accounting of the evaluation and care rendered by that Emergency Physician/WOOD MILLING MACHINE TENDER/PA-C. The Emergency Physician/WOOD MILLING MACHINE TENDER/PA-C assumes full responsibility for those entries. René [...] 98% 2L 80 18 129/76 ETA 10 [place] Transfer Jeanmarie Garcia 1950 Choking episode at [facility], received heimlich 4x, pt still feels something stuck, hx stroke Dr. Pate [facility] Assisted living 98% RA Dry coughing 20g L FA No meds documented in this encounter [facility] 09-15-2023 History and physical note [facility] History and Physical 09/15/2023 [...] as of 09/15/232016 Sat Sep 15, 2023 3875 I independently reviewed the patient's CT chest. [...] pedis pulses present and equal bilaterally Skin: [place], warm, dry; no rashes or lesions Neurologic: [...] Electronically signed by: MD Smita FERREIRA M.D. [facility] This note was completed using a voice motor boss system. Every effort was made to ensure accuracy. However, inadvertent computerized motor boss errors may be present. [facility] Work Phone: 09-15-2023 Progress note Formatting of [...] does not expectorate on her own tonight. [facility] Work Phone: 09-15-2023 Physician Emergency department Note Images from the original note were not included. History Chief Complaint Patient presents with Choking Foreign Body in Throat 35-year-old female who presented to [facility] via EMS after choking on chicken [...] made aware of patient's current visit to [facility]. Amount and/or Complexity of Data Reviewed Labs: ordered. Radiology: ordered. Risk Prescription drug management. I, René Monroe (scribe), documented on behalf of Dr. White. 1037 Jeanmarie Garcia is a 73 y.o. female [...] as low as reasonably achievable. Finalized by uRi Boswell MD on 09/15/2023 5:47 PM NURSING [...] signing this emergency patient record, the Emergency Physician/WOOD MILLING MACHINE TENDER/PA-C attests that all entries made into the electronic medical record by azeem Villavicencio prior to the Physician/WOOD MILLING MACHINE TENDER/PA-C signature reflect an accurate accounting of the evaluation and care rendered by that Emergency Physician/WOOD MILLING MACHINE TENDER/PA-C. The Emergency Physician/WOOD MILLING MACHINE TENDER/PA-C assumes full responsibility for those entries. The Emergency Physician/WOOD MILLING MACHINE TENDER/PA-C also attests that any patient testing or treatment that was instituted by nursing staff in accordance to Emergency Department Preemptive Guidelines have been reviewed and unless so stated elsewhere in this patient chart, the Physician/WOOD MILLING MACHINE TENDER/PA-C agrees with the testing and care provided. [...] signing this emergency patient record, the Emergency Physician/WOOD MILLING MACHINE TENDER/PA-C attests that all entries made into the electronic medical record by the scribe prior to the Physician/WOOD MILLING MACHINE TENDER/PA-C signature reflect an accurate accounting of the evaluation and care rendered by that Emergency Physician/WOOD MILLING MACHINE TENDER/PA-C. The Emergency Physician/WOOD MILLING MACHINE TENDER/PA-C assumes full responsibility for those entries. René Monroe 09/15/23 1610 René Monroe 09/15/231957 René Monroe 09/15/232024 Franko White DO 09/15/232245 [facility] 09-15-2023 Emergency department Triage note Pt presents to ED by EMS from nursing facility. Per EMS pt was eating lunch and choked on some chicken. EMS stated pt was given heimlich maneuver which opened her airway but nothing was expelled from throat. EMS reports pt having a dry cough for EMS ride and upon arrival. . Pt VSS and no distress noted. [facility] 09-15-2023 Emergency department Note Bed: 33 Expected date: Expected time: Means of arrival: Comments: 73 y/o F Choked while eating lunch 98% 2L 80 18 129/76 ETA 10 [place] Transfer Jeanmarie Garcia 1950 Choking episode at [facility], received heimlich 4x, pt still feels something stuck, hx stroke Dr. Pate [facility] Assisted living 98% RA Dry coughing 20g L FA No meds [facility] Evaluation + Plan note No data available for this section [facility] Evaluation note No Information [facility] [employer] Other Evaluation note Diagnosis Foreign body in bronchus, initial encounter- Primary Foreign body in bronchus, initial encounter [facility] N[facility] - Reported* Type Description Date Medical History schizophrenia Medical History Hypothyroidism Medical History COPD Medical History Hypertension Medical History CAD Surgical History thyroidectomy Surgical History exploratory lap, SBO [facility] 1-4 All Other History general N[facility]ative - [facility] 1-4 All Other Hospital Discharge instructions No data available for this section [facility] instructionsNot on file [facility] No data available for this section [facility] Summary Purpose Family History No Family [...] Agents on File Name Relationship Healthcare Agent [facility] Health Care Agent Hospital Course Note [facility] SURGERY Clinical Discharge Summary PERSON INFORMATION Name JEANMARIE GARCIA Age 68 Years 1950 Sex FEMALE Language Polish PCP GERALD FUENTES Marital Status Single Med Service Ambulatory Surgery Acct# Arrival 05/13/2019 05:53:00 Visit Reason SURGERY - INCISIONAL VENTRAL HERNIA REPAIR WITH MESH Acuity LOS 007 21:08 Address: [address] [place] [address] Comment: PROVIDER INFORMATION VITALS INFORMATION Vital Sign [...] as needed as needed for pain. acetaminophen-hydrocodone (Villalba 5 mg-325 mg oral tablet) 1 tab(s) Oral Every 6 hours as needed for pain. Refills: 0. a (more content not included)... Reason for Referral Specialty Diagnoses / Procedures Referred By Anastasiia ingram Referred To Contact Diagnoses Foreign body in bronchus, initial encounter Procedures Follow-up with primary care provider Keysha Reynoso MD [address] [place] [address] Referral ID Status Reason Start Date Expiration Date V isits Requested Visits Authorized [id number] Pending Review 09/17/2023 09/16/2024 1 1 Additional Source Comments INFORMATION SOURCE (unrecogn ized section and content) DATE CREATED AUTHOR 09/27/2017 [facility] DATE CREATED AUTHOR AUTHOR'S ORGANIZ ATION 01/11/2019 [facility] DATE CREATED AUTHOR AUTHOR'S ORGANIZ ATION 11/07/2019 [facility] DATE CREATED AUTHOR AUTHOR'S ORGANIZ ATION 05/13/2022 [facility] DATE CREATED AUTHOR AUTHOR'S ORGANIZ ATION 09/02/2023 [place] [facility] DATE CREATED AUTHOR AUTHOR'S ORGANIZ ATION 11/15/2023 [facility] DATE CREATED AUTHOR AUTHOR'S ORGANIZ ATION 05/09/2024 [place] [facility] DATE CREATED AUTHOR AUTHOR'S ORGANIZ ATION 05/16/2024 [facility] REASON FOR VISIT (unrecogniz ed section and content) Reason Comments Choking Foreign Body in Throat Specialty Diagnoses / Procedures Referred By Anastasiia ingram Referred To Contact Diagnoses Foreign body in bronchus, initial encounter Smita Mesa MD [address] [place] [id number] Referral ID Status Reason Start Date Expiration Date Visits Re quested Visits Authorized [id number] 1 1 [facility] AppointmentReview DM plan of care Patient Care team informatio n (unrecognized section and content) Spanish Translator Relationship Specialty Start Date End Date Madhuri RezaDO [address] [place] [address] PCP - General 03/23/17 Scheduled Active and [...] Adriana Patel RN) 0922 (Given - Provider: Leial Pino, RN) cholecalciferol (vitamin D3) tablet 2,000 Units 2,000 Units, oral, Daily, First dose on 09/16/23 at 0900 1029 (Given - Provider: Marah Wei RN)1506 ([facility] Hold - Provider: Automatic Transfer Provider - Reason: Patient not available)1522 ([facility] Unhold - Provider: Automatic Transfer Provider) 0922 [...] Transfer Provider - Reason: Patient not available)1522 ([facility] Unhold - Provider: Automatic Transfer Provider) PRN [...] grams (4000 mg) in 24 hours] 1506 ([facility] Hold - Provider: Automatic Transfer Provider - Reason: Patient not available)1522 ([facility] Unhold - Provider: Automatic Transfer Provider) barium sulfate (VARIBAR PUDDING) 40 % (w/v), 30% (w/w) oral paste 60 mL (COMPLETED) 60 mL, oral, Once in imaging, contrast, barium sulfate (VARIBAR PUDDING) 40 % (w/v), 30% (w/w) oral paste, Starting on 09/17/23 at 0844, For 1 dose 0849 (Given - Provid er: Linda Milks, CCC-DIMENSIONAL ENGINEER) barium sulfate (VARIBAR THIN) 81 % (w/w) powder 148 g (COMPLETED) 148 g, oral, Once in imaging, contrast, barium sulfate (VARIBAR THIN) 40 % (w/v) powder, Starting on 09/17/23 at 0844, For 1 dose 0849 (Given - Provid er: Linda Milks, CCC-DIMENSIONAL ENGINEER) dextrose (GLUTOSE) 40 % gel 15 g 15 g, oral, As needed, low blood sugar, blood glucose less than 70 mg/dL, Starting on 09/16/23 at 0036, If patient conscious and taking PO. If blood glucose is not greater than 70 mg/dL after initial treatment, repeat treatment. 1506 ([facility] Hold - Provider: Automatic Transfer Provider - Reason: Patient not available)1522 ([facility] Unhold - Provider: Automatic Transfer Provider) dextrose 5 % (D5W) infusion 100 mL/hr, intravenous, Continuous PRN, blood glucose less than 70 mg/dL, Starting on 09/16/23 at 0036, Use immediately following dextrose 50% or glucagon treatment for patients who are unconscious or NPO. Contact prescriber for additional orders. If blood glucose is not greater than 70 mg/dL after initial treatment, repeat treatment. 1506 ([facility] Hold - Provider: Automatic Transfer Provider - Reason: Patient not available)1522 ([facility] Unhold - Provider: Automatic Transfer Provider) dextrose [...] treatment. VESICANT (RED) Warning: HYPERTONIC solution. 1506 ([facility] Hold - Provider: Automatic Transfer Provider - Reason: Patient not available)1522 ([facility] Unhold - Provider: Automatic Transfer Provider) glucagon [...] mg/dL after initial treatment, repeat treatment. 1506 ([facility] Hold - Provider: Automatic Transfer Provider - Reason: Patient not available)1522 ([facility] Unhold - Provider: Automatic Transfer Provider) ondansetron (PF) (ZOFRAN) injection 4 mg 4 mg, intravenous, Every 8 hours PRN, nausea, vomiting, Starting on 09/16/23 at 0036, Administer over 2-5 minutes. 1506 ([facility] Hold - Provider: Automatic Transfer Provider - Reason: Patient not available)1522 ([facility] Unhold - Provider: Automatic Transfer Provider) sennosides-docusate sodium (SENOKOT-S) 8.6-50 mg 1 tablet 1 tablet, oral, Every 12 hours PRN, constipation, Starting on 09/16/23 at 0036 1506 ([facility] Hold - Provider: Automatic Transfer Provider - Reason: Patient not available)1522 ([facility] Unhold - Provider: Automatic Transfer Provider) sodium chloride 0.9 % flush 3 mL 3 mL, intravenous, As needed, line care, before and after each intermittent use, Starting on 09/15/23 at 1837 1506 ([facility] Hold - Provider: Automatic Transfer Provider - Reason: Patient not available)1522 ([facility] Unhold - Provider: Automatic Transfer Provider) sodium chloride 0.9 % flush bag 25 mL, intravenous, at 100 mL/hr, Administer over 15 Minutes, As needed, line care, line care after IVPB administration, Starting on 09/16/23 at 0036 1506 ([facility] Hold - Provider: Automatic Transfer Provider - Reason: Patient not available)1522 ([facility] Unhold - Provider: Automatic Transfer Provider) 1254 [...] lines, Starting on 09/16/23 at 0036 1506 ([facility] Hold - Provider: Automatic Transfer Provider - Reason: Patient not available)1522 ([facility] Unhold - Provider: Automatic Transfer Provider) FOR [...] BE BASED ON THE PRIMARY CLINICAL RECORDS. [facility] [employer] [facility]. provides no warranty or guarantee of the accuracy or completeness of information in this document.
[2024-07-08 20:16] VITALS: BMI 39.0
[2024-07-08 20:17] VITALS: BP 126/75; PULSE 93; TEMP 36.7; O2SAT 90
[2024-07-08 21:44] LABS: Glucometer 456 mg/dL (74-106)
[2024-07-08] MEDS: ATORVASTATIN CALCIUM 10 MG TABLET PO (21:47)
[2024-07-08] MEDS: INSULIN GLARGINE 300 UNIT/3 ML INSULN.PEN 20 UNIT SQ (21:47)
[2024-07-08] MEDS: INSULIN ASPART 300 UNIT/3 ML PEN SUBQ (21:47)
[2024-07-08] MEDS: 0.9 % SODIUM CHLORIDE 1,000 ML 100 ML IV (21:47)
[2024-07-08 23:12] VITALS: BP 123/73; PULSE 94; TEMP 36.8; O2SAT 92
[2024-07-09 03:48] VITALS: BP 137/76; PULSE 98; TEMP 36.3; O2SAT 90
[2024-07-09 05:28] LABS: Basophils Percent Auto 0.2 % (0.2-2.0); Eosinophils Absolute Auto 0.8 10^3/uL (0.0-0.7); Eosinophils Percent Auto 9.1 % (0.9-7.0); Hematocrit 34.8 % (36.0-48.0); Hemoglobin 11.3 g/dL (12.0-16.0); Immature Granulocytes Abs Auto 0.02 10^3/uL (0.00-0.03); Immature Granulocytes Pct Auto 0.2 % (0.0-0.5); Lymphocytes Absolute Auto 2.7 10^3/uL (1.2-3.8); Mean Corpuscular HGB Conc 32.5 g/dL (29.9-35.2); Mean Corpuscular Hemoglobin 28.8 pg (26.7-34.0); Mean Corpuscular Volume 88.5 fL (81.0-99.0); Mean Platelet Volume 10.4 fL (9.5-13.5); Monocytes Absolute Auto 0.5 10^3/uL (0.3-0.8); Monocytes Percent Auto 5.6 % (1.7-12.0); Neutrophils Absolute Auto 4.5 10^3/uL (1.4-6.5); Neutrophils Percent Auto 52.9 % (43.0-75.0); Platelet Count 203 10^3/uL (150-450); Red Blood Count 3.93 10^6/uL (4.20-5.40); Red Cell Distribution Width 13.8 % (11.0-15.0); White Blood Count 8.4 10^3/uL (4.0-11.0)
[2024-07-09 05:49] LABS: Alanine Aminotransferase 17 U/L (14-59); Albumin Globulin Ratio 0.8; Albumin Level 2.8 g/dL (3.4-5.0); Alkaline Phosphatase 114 U/L (46-116); Anion Gap 12.4; Aspartate Amino Transferase 20 U/L (15-37); BUN Creatinine Ratio 15.9; Bilirubin Total 0.3 mg/dL (0.2-1.0); Calcium 7.8 mg/dL (8.5-10.1); Carbon Dioxide 24.6 mmol/L (21.0-32.0); Chloride 105 mmol/L (98-107); Estimated GFR (African America 48 (>=60 mL/min/1.73m^2); Estimated GFR (Non-African Ame 40 (>=60 mL/min/1.73m^2); Globulin 3.7 g/dL; Glucose 328 mg/dL (74-106); Sodium 138 mmol/L (136-145); Total Protein 6.5 g/dL (6.4-8.2)
[2024-07-09 05:50] LABS: Estimated Average Glucose >355 mg/dL; Glycohemoglobin A1C >14.0 % (4.5-6.2)
[2024-07-09] MEDS: LEVOTHYROXINE SODIUM 100 MCG TABLET PO (06:08)
[2024-07-09 07:20] LABS: Glucometer 288 mg/dL (74-106)
[2024-07-09 07:31] VITALS: BP 120/81; PULSE 88; TEMP 36.6; O2SAT 91
[2024-07-09] MEDS: 0.9 % SODIUM CHLORIDE 1,000 ML 100 ML IV (07:33)
[2024-07-09] MEDS: INSULIN ASPART 300 UNIT/3 ML PEN SUBQ ×2 (07:33→12:09)
[2024-07-09] MEDS: VENLAFAXINE HCL ER 37.5 MG CAPSULE PO (08:50)
[2024-07-09] MEDS: ARIPIPRAZOLE 2 MG TABLET PO (08:51)
[2024-07-09] MEDS: AMANTADINE HCL 100 MG CAPSULE PO (08:51)
[2024-07-09] MEDS: LEVOFLOXACIN 500 MG TABLET PO (08:51)
[2024-07-09] MEDS: CHOLECALCIFEROL (VITAMIN D3) 25 MCG/1,000 UNITS TABLET PO (08:51)
[2024-07-09] MEDS: CETIRIZINE HCL 10 MG TABLET PO (08:51)
--- NOTE | 2024-07-09 10:45 | CM.NOTE ---
Rounds made with Dr. Zavala, discussed with pt am labs and A1C results. Dr. Zavala discussed discharge plan for today and need for long acting insulin. Pt verbalizes understanding.
[2024-07-09 11:50] LABS: Glucometer 343 mg/dL (74-106)
[2024-07-09 12:00] VITALS: BP 153/83; PULSE 90; TEMP 36.9; O2SAT 92
--- NOTE | 2024-07-09 12:06 | SWNOTE1 ---
FARIHA called over and spoke with Rajni at [facility] and she did receive the updates. She did ask SW if we are sending the pens used here and if we are sending with sliding scale as they do not have on there? SW to speak with nurse. SW went to speak with nurse and yes will send with pens and checking on sliding scale. Case management also out on floor and discussed with nurse and will assist with checking in to sliding scale as it will have to be an order from doctor.
--- NOTE | 2024-07-09 12:07 | PM.HP ---
HPI H&P: HPI History of Present Illness Chief complaint: HYPERGLYCEMIA Narrative: 73 y/o female to ER with elevated BS. Admitted 07/06-07/07 with glucose 1185. Given IV fluids and insulin. Stopped farxiga but did not start insulin. Returned to [place] and BS read as high. Not able to get ahold of PCP and sent back to ER. BS 599 in ER. Given insulin and IV fluids. Admitted for treatment. Started lantus 20 units QHS and sliding scale. BS 288 this am. A1C >14. Feels well this am. Opioid HPI Opioid Management Most Recent Pain and Opioid Data: Last Pain Scale 3 07/07/24 09:22 07/07/24 Last Pain Intensity 3 07/07/24 09:22 07/07/24 Last Pain Assessment 07/09/24 11:00 Last ORT Total Score 0 07/08/24 20:16 07/08/24 Last ORT Risk Category Low Risk 07/08/24 20:16 07/08/24 Review of Systems ROS Constitutional Denies: fever, chills or fatigue Cardiovascular Denies: chest pain, palpitations or edema Respiratory Denies: shortness of breath, cough or wheezing Gastrointestinal Denies: abdominal pain, nausea, vomiting or diarrhea Genitourinary Denies: painful urination PFSH [facility] Medical History (Updated 07/09/24 @ 08:41 by Tera Zavala MD) Hyperlipidemia ?E78.5 - Hyperlipidemia, unspecified (ICD-10) Atherosclerotic heart disease ?I25.10 - Atherosclerotic heart disease of [place] coronary artery without angina pectoris (ICD-10) Diarrhea ?R19.7 - Diarrhea, unspecified (ICD-10) Nausea ?R11.0 - Nausea (ICD-10) Allergic rhinitis ?J30.9 - Allergic rhinitis, unspecified (ICD-10) COVID-19 ?U07.1 - COVID-19 (ICD-10) Hyperglycemia ?R73.9 - Hyperglycemia, unspecified (ICD-10) Enteritis ?K52.9 - Noninfective gastroenteritis and colitis, unspecified (ICD-10) Choking ?T17.308A - Unspecified foreign body in larynx causing other injury, initial encounter (ICD-10) Hypothyroidism ?E03.9 - Hypothyroidism, unspecified (ICD-10) Anemia ?D64.9 - Anemia, unspecified (ICD-10) Major depressive disorder ?F32.9 - Major depressive disorder, single episode, unspecified (ICD-10) Schizoaffective disorder, bipolar type ?F25.0 - Schizoaffective disorder, bipolar type (ICD-10) Muscle weakness ?M62.81 - Muscle weakness (generalized) (ICD-10) GERD (gastroesophageal reflux disease) ?K21.9 - Gastro-esophageal reflux disease without esophagitis (ICD-10) Heart failure ?I50.9 - Heart failure, unspecified (ICD-10) Lack of coordination ?R27.9 - Unspecified lack of coordination (ICD-10) Tremor ?R25.1 - Tremor, unspecified (ICD-10) Dystonia ?G24.9 - Dystonia, unspecified (ICD-10) Diabetes mellitus ?E11.9 - Type 2 diabetes mellitus without complications (ICD-10) Social History Highest level of school completed/degree received: high school graduate Little interest or pleasure in doing things: not at all Feeling down, depressed, or hopeless: not at all Meds Home Medications and Allergies Home Medications ?Medication ?Instructions ?Recorded ?Confirmed ?Type atorvastatin 10 mg tablet 10 mg PO .QHS 09/15/23 07/08/24 History levothyroxine 100 mcg tablet 100 mcg PO DAILY 09/15/23 07/08/24 History venlafaxine 37.5 mg 37.5 mg PO DAILY 09/15/23 07/08/24 History capsule,extended release 24 hr amantadine HCl 100 mg capsule 100 mg PO DAILY 07/06/24 07/08/24 History aripiprazole 2 mg tablet 2 mg PO DAILY 07/06/24 07/08/24 History cetirizine 10 mg tablet 10 mg PO DAILY 07/06/24 07/08/24 History loperamide 1 mg/7.5 mL oral liquid 2 mg PO Q8H PRN loose stool 07/06/24 07/08/24 History (Anti-Diarrheal (loperamide)) cholecalciferol (vitamin D3) 25 25 mcg PO DAILY 07/07/24 07/08/24 History mcg (1,000 unit) tablet dextromethorphan-guaifenesin 10 10 ml PO Q4H PRN cough 07/07/24 07/08/24 History mg-100 mg/5 mL oral syrup (Antitussive DM) ondansetron HCl 4 mg tablet 4 mg PO DAILY PRN nausea and 07/07/24 07/08/24 History vomiting albuterol sulfate 90 mcg/actuation 2 inh inhalation Q4H PRN shortness 07/09/24 Rx aerosol inhaler of breath or wheezing #8.5 grams insulin aspart U-100 100 unit/mL 3 - 15 unit (0.03 - 0.15 mL) 07/09/24 Rx (3 mL) subcutaneous pen (Novolog subcut ACHS #15 mL FlexPen U-100 Insulin aspart) insulin glargine 100 unit/mL (3 20 unit (0.2 mL) subcut QHS #15 mL 07/09/24 Rx mL) subcutaneous pen (Lantus Solostar U-100 Insulin) levofloxacin 500 mg tablet 500 mg PO DAILY #1 tab 07/09/24 Rx Allergies Allergy/AdvReac Type Severity Reaction Status Date / Time No Known Drug Allergies Allergy Verified 07/08/24 12:46 Exam Constitutional Vital Signs, click to edit/add: Last Vital Signs Temp 98.4 F 07/09/24 12:00 Pulse 90 07/09/24 12:00 Resp 18 07/09/24 12:00 BP 153/83 H 07/09/24 12:00 Pulse Ox 92 L 07/09/24 12:00 O2 Del Method Room Air 07/09/24 12:00 Documenting provider has reviewed patient's vital signs: yes Common normals: no apparent distress, oriented x3 and alert HENMT Common normals: normocephalic Eye Common normals: PERRL and EOMs intact bilaterally Respiratory Common normals: normal respiratory effort Auscultation: wheezes expiratory wheezes Cardio Common normals: regular rate, regular rhythm, no gallops, no murmurs and no rub GI Common normals: Normal to inspection, nondistended, normoactive bowel sounds present and non-tender Extremity Common normals: no pedal edema Results Labs Labs: Short CBC 07/08/24 07/09/24 Range/Units 13:22 05:23 WBC 9.2 8.4 (4.0-11.0) 10^3/uL Hgb 12.5 11.3 L (12.0-16.0) g/dL Hct 39.8 34.8 L (36.0-48.0) % Plt Count 219 203 (150-450) 10^3/uL BMP 07/08/24 07/09/24 13:22 05:23 Sodium 130 L 138 Potassium 4.7 4.0 Chloride 98 105 Carbon Dioxide 22.6 24.6 BUN 26.0 H 21.0 H Creatinine 1.81 H 1.32 H Glucose 599 H* 328 H Calcium 8.7 7.8 L Liver Function 07/09/24 Range/Units 05:23 Total Bilirubin 0.3 (0.2-1.0) mg/dL AST 20 (15-37) U/L ALT 17 (14-59) U/L Alkaline Phosphatase 114 (46-116) U/L Albumin 2.8 L (3.4-5.0) g/dL ABG ABG results: 07/08/24 13:22 VBG pH 7.315 L VBG pCO2 38.1 L Assessment and Plan Assessment and Plan (1) Type 2 diabetes mellitus with hyperglycemia: (2) MIRANDA (acute kidney injury): (3) Hypertension: (4) COPD (chronic obstructive pulmonary disease): (5) CKD stage 3b, GFR 30-44 ml/min: Plan BS improved with insulin. Wheezing on exam and started on albuterol. Discharge home. Will continue lantus 20 units daily and novolog sliding scale. Continue levaquin and use albuterol PRN. Follow up with PCP in 1-2 weeks.
--- NOTE | 2024-07-09 12:22 | SWNOTE1 ---
Case management able to get order for sliding scale from doctor. FARIHA called Rajni at [facility] and updated her that the scale will be in the packet that FARIHA sends over. [facility] transport will be here at 1:00 to get her. FARIHA let nurse know.
--- NOTE | 2024-07-09 12:32 | CM.NOTE ---
Txt Dr. Zavala regarding SSI coverage at discharge, t.o received and written on physician order sheet for discharge. Updated RN on scripts and SSI coverage. Discussed with pt also new medications and need for insulin. Pt verbalizes understanding.
--- NOTE | 2024-07-09 13:05 | PC.NURSE ---
Report called to Dave Jeter at this time, report given to nurse Tiara.
--- NOTE | 2024-07-10 14:55 | CM.DCFOLLOWU ---
07/10- Spoke with Dave Jeter- pt brought back to ER
== END 2024-07-09 13:08 | disposition home or self-care (01) ==
LOC: ER 16:54 → MS 19:42
PROVIDERS: Admitting Provider Family Medicine; Emergency Provider Emergency Medicine; PCP Nurse Practitioner Family; Visit Provider Family Medicine
DX: E11.65 Type 2 diabetes mellitus with hyperglycemia (principal); N17.9 Acute kidney failure, unspecified; I12.9 Hypertensive chronic kidney disease with stage 1 through stage 4 chronic kidney disease, or unspecified chronic kidney disease; N18.32 Chronic kidney disease, stage 3b; Z79.4 Long term (current) use of insulin; E11.22 Type 2 diabetes mellitus with diabetic chronic kidney disease; J44.9 Chronic obstructive pulmonary disease, unspecified; R06.2 Wheezing; F17.210 Nicotine dependence, cigarettes, uncomplicated
CPT/HCPCS: 36415; 80048; 80053; 82009; 82800; 82948; 83036; 85025; 93005; 99285; 99406; G0378; J1817

== ENCOUNTER 2024-07-10 09:20 | Emergency (ER) | payer MEDICARE, MEDICAID, SELFPAY ==
[2024-07-10] VITALS (16 sets, daily range): BP systolic 129–152; BP diastolic 43–99; PULSE 82–89; TEMP 36.9; O2SAT 96–100; BMI 29.9
--- NOTE | 2024-07-10 09:43 | ECG_ITS ---
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 Measurements Intervals [place] Rate: 87 P: 72 OK: 176 QRS: -17 QRSD: 78 T: 14 QT: 354 QTc: 399 Interpretive Statements 1100 Sinus rhythm 2420 RSR (QR) in lead V1/V2, consistent with right ventricular conduction delay 3423 Possible septal myocardial infarction, probably old 8102 Low QRS voltage in chest leads 9150 abnormal ECG Compared to ECG 07/08/2024 13:14:07 Myocardial infarct finding now present Low QRS voltage now present Accelerated junctional rhythm no longer present Electronically Signed On 07-11-2024 15:09:11 EDT by MARIBETH CHILDS M.D.
--- NOTE | 2024-07-10 09:48 | ECG_ITS ---
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 Measurements Intervals [place] Rate: 83 P: 70 WI: 162 QRS: -1 QRSD: 82 T: 23 QT: 364 QTc: 403 Interpretive Statements 1100 Sinus rhythm 8102 Low QRS voltage in chest leads Abnormal ECG Compared to ECG 07/10/2024 09:25:42 Myocardial infarct finding no longer present Electronically Signed On 07-11-2024 15:10:47 EDT by MARIBETH HCILDS M.D.
--- NOTE | 2024-07-10 10:25 | ED_ITS ---
HPI HPI - General Adult General Chief complaint: Seizure Stated complaint: SEIZURE Time Seen by Provider: 07/10/24 09:41 Source: patient Mode of arrival: ambulance Limitations: no limitations History of Present Illness HPI narrative: The patient is a 73 years old female with history of diabetes and CKD stage II as well as hypertension, the patient initially was sent to be evaluated for po ssible seizure for possibly 5 seizures and neuro, upon arrival the patient was not postictal she refused any care except for the CAT scan, the patient denies any complaints she does not know why she is here Evaluation of the patient initially as she is not cooperative to provide history I had to speak with the guardian as well as the patient caring nurse in the assisted living According to the nurse taking care of her for the last 2 years and a half she never had any weakness in the left arm and she noted that she had weakness on the July 07 Related Data Home Medications ?Medication ?Instructions ?Recorded ?Confirmed atorvastatin 10 mg tablet 10 mg PO .QHS 09/15/23 07/08/24 levothyroxine 100 mcg tablet 100 mcg PO DAILY 09/15/23 07/08/24 venlafaxine 37.5 mg 37.5 mg PO DAILY 09/15/23 07/08/24 capsule,extended release 24 hr amantadine HCl 100 mg capsule 100 mg PO DAILY 07/06/24 07/08/24 aripiprazole 2 mg tablet 2 mg PO DAILY 07/06/24 07/08/24 cetirizine 10 mg tablet 10 mg PO DAILY 07/06/24 07/08/24 loperamide 1 mg/7.5 mL oral liquid 2 mg PO Q8H PRN loose stool 07/06/24 07/08/24 (Anti-Diarrheal (loperamide)) cholecalciferol (vitamin D3) 25 25 mcg PO DAILY 07/07/24 07/08/24 mcg (1,000 unit) tablet dextromethorphan-guaifenesin 10 10 ml PO Q4H PRN cough 07/07/24 07/08/24 mg-100 mg/5 mL oral syrup (Antitussive DM) ondansetron HCl 4 mg tablet 4 mg PO DAILY PRN nausea and 07/07/24 07/08/24 vomiting Previous Rx's ?Medication ?Instructions ?Recorded albuterol sulfate 90 mcg/actuation 2 inh inhalation Q4H PRN shortness 07/09/24 aerosol inhaler of breath or wheezing #8.5 grams insulin aspart U-100 100 unit/mL 3 - 15 unit (0.03 - 0.15 mL) 07/09/24 (3 mL) subcutaneous pen (Novolog subcut ACHS #15 mL FlexPen U-100 Insulin aspart) insulin glargine 100 unit/mL (3 20 unit (0.2 mL) subcut QHS #15 mL 07/09/24 mL) subcutaneous pen (Lantus Solostar U-100 Insulin) levofloxacin 500 mg tablet 500 mg PO DAILY #1 tab 07/09/24 Allergies Allergy/AdvReac Type Severity Reaction Status Date / Time No Known Drug Allergies Allergy Verified 07/08/24 12:46 Opioid HPI Opioid Management Most Recent Opioid Data: Last Pain Scale 6 07/10/24 13:45 07/10/24 Last Pain Intensity 3 07/07/24 09:22 07/07/24 Last Pain Assessment 07/09/24 13:07 Last MAR Pain Assessment 07/06/24 17:20 Last ORT Total Score 0 07/08/24 20:16 07/08/24 Last ORT Risk Category Low Risk 07/08/24 20:16 07/08/24 Review of Systems ROS Status of ROS 10 or more systems reviewed and unremark able except as noted in history and below [facility] Medical History (Updated 07/10/24 @ 14:01 by Loraine James MD) Hyperlipidemia ?E78.5 - Hyperlipidemia, unspecified (ICD-10) Atherosclerotic heart disease ?I25.10 - Atherosclerotic heart disease of [place] coronary artery without angina pectoris (ICD-10) Diarrhea ?R19.7 - Diarrhea, unspecified (ICD-10) Nausea ?R11.0 - Nausea (ICD-10) Allergic rhinitis ?J30.9 - Allergic rhinitis, unspecified (ICD-10) COVID-19 ?U07.1 - COVID-19 (ICD-10) Hyperglycemia ?R73.9 - Hyperglycemia, unspecified (ICD-10) Enteritis ?K52.9 - Noninfective gastroenteritis and colitis, unspecified (ICD-10) Choking ?T17.308A - Unspecified foreign body in larynx causing other injury, initial encounter (ICD-10) Hypothyroidism ?E03.9 - Hypothyroidism, unspecified (ICD-10) Anemia ?D64.9 - Anemia, unspecified (ICD-10) Major depressive disorder ?F32.9 - Major depressive disorder, single episode, unspecified (ICD-10) Schizoaffective disorder, bipolar type ?F25.0 - Schizoaffective disorder, bipolar type (ICD-10) Muscle weakness ?M62.81 - Muscle weakness (generalized) (ICD-10) GERD (gastroesophageal reflux disease) ?K21.9 - Gastro-esophageal reflux disease without esophagitis (ICD-10) Heart failure ?I50.9 - Heart failure, unspecified (ICD-10) Lack of coordination ?R27.9 - Unspecified lack of coordination (ICD-10) Tremor ?R25.1 - Tremor, unspecified (ICD-10) Dystonia ?G24.9 - Dystonia, unspecified (ICD-10) Diabetes mellitus ?E11.9 - Type 2 diabetes mellitus without complications (ICD-10) Social History Highest level of school completed/degree received: high school graduate Little interest or pleasure in doing things: not at all Feeling down, depressed, or hopeless: not at all Exam Narrative Exam Narrative: Nurses notes and vital signs reviewed and patient is not hypoxic. General: Well-appearing and in no apparent distress. Skin: Warm, dry, no pallor noted. No rash. Head: Normocephalic, atraumatic. Neck: Supple, non-tender. Eye: Pupils are equal, round and EOMI. No scleral icterus. Ears, Nose, Mouth, and Throat: TM are clear, no nasal mucosal hypertrophy. Oral mucosa is moist, no posterior oropharynx erythema, uvula is mid-line Cardiovascular: Regular Rate and Rhythm without murmur, gallop or rub. Respiratory: No accessory muscle use or respiratory distress. Lungs are clear to auscultation, no wheezing, rales or rhonchi Chest Wall: no tenderness Back: No midline thoracic or lumbar vertebral tenderness. No CVA tenderness GI: Abdomen is soft, non-distended. Normal bowel sounds. No masses appreciated. No tenderness to palpation. No rebound, guarding, or rigidity noted. Neurological: Alert No cranial nerve dysfunction observed. No truncal ataxia. It was noted that the patient have weakness in the left arm and she is carrying it with the right arm, Constitutional Vital Signs, click to edit/add: Last Vital Signs Temp 98.4 F 07/10/24 09:23 Pulse 89 07/10/24 10:30 Resp 18 07/10/24 10:30 BP 140/99 H 07/10/24 13:40 Pulse Ox 98 07/10/24 13:40 O2 Del Method Room Air 07/10/24 10:54 Course Vital Signs Vital signs: Vital Signs Blood Pressure 152/90 H 07/10/24 09:22 Temperature 98.4 F 07/10/24 09:23 Pulse Rate 89 07/10/24 10:30 Respiratory Rate 18 07/10/24 10:30 Blood Pressure 140/99 H 07/10/24 13:40 Pulse Oximetry 98 07/10/24 13:40 Oxygen Delivery Method Room Air 07/10/24 10:54 Medical Decision Making MDM Narrative Medical decision making narrative: The patient EKG showing sinus rhythm with a heart rate of [address] elevation or depression Initially the patient was refusing care and she wanted to sign AMA, after speaking with the staff in the facility where she is out and her guardian we did up taking a whole history was she apparently on July 07 had weakness in the left arm was sent to be evaluated here and was found to be in DKA with a blood sugar over 1100 At that time the patient was still having this weakness which according to her caring nurse is new for the last 2 years and a half she never noticed it The patient does have her left arm weakness is obvious and she does grab it with the right arm all the time and carry it to function with it The patient initially refused any blood workup he had a CT of the head showing no acute pathology The patient also had a EKG that showed no acute pathology After trying to come with the patient multiple time we spoke with her and she was able to agree for blood workup specially after speaking with her guardian The patient after discussing the case with the neurology stroke team they agree that this is mostly of a seizure right now management especially with the patient being 5 days out of the last known well The patient case discussed with Dr. Wally Guerra and she wanted the patient to be transferred to [facility] for MRI and EEG monitoring The patient the guardian requested the patient to be transferred to [facility] and the patient case discussed with Dr. Boss and he agreed with the patient transfer The patient also had her case accepted by Dr. Gildardo Bell Lab Data Labs: Lab Results 07/10/24 Range/Units 13:13 WBC 9.2 (4.0-11.0) 10^3/uL RBC 4.06 L (4.20-5.40) 10^6/uL Hgb 11.5 L (12.0-16.0) g/dL Hct 35.6 L (36.0-48.0) % MCV 87.7 (81.0-99.0) fL MCH 28.3 (26.7-34.0) pg MCHC 32.3 (29.9-35.2) g/dL RDW 13.8 (11.0-15.0) % Plt Count 215 (150-450) 10^3/uL MPV 10.1 (9.5-13.5) fL Neut % (Auto) 62.4 (43.0-75.0) % Lymph % (Auto) 24.8 (20.5-60.0) % Tillman % (Auto) 5.0 (1.7-12.0) % Eos % (Auto) 7.1 H (0.9-7.0) % Baso % (Auto) 0.2 (0.2-2.0) % Neut # (Auto) 5.8 (1.4-6.5) 10^3/uL Lymph # (Auto) 2.3 (1.2-3.8) 10^3/uL Tillman # (Auto) 0.5 (0.3-0.8) 10^3/uL Eos # (Auto) 0.7 (0.0-0.7) 10^3/uL Baso # (Auto) 0.0 (0.0-0.1) 10^3/uL Abs Immat Gran (auto) 0.05 H (0.00-0.03) 10^3/uL Imm/Tot Granulo (auto) 0.5 (0.0-0.5) % Sodium 137 (136-145) mmol/L Potassium 4.0 (3.5-5.1) mmol/L Chloride 104 (98-107) mmol/L Carbon Dioxide 23.0 (21.0-32.0) mmol/L Anion Gap 14.0 BUN 15.0 (7.0-18.0) mg/dL Creatinine 1.24 H (0.55-1.02) mg/dL Est GFR ( Amer) 52 L (>=60 mL/min/1.73m^2) Est GFR (Non-Af Amer) 43 L (>=60 mL/min/1.73m^2) BUN/Creatinine Ratio 12.1 Glucose 245 H (74-106) mg/dL Calcium 8.5 (8.5-10.1) mg/dL Total Bilirubin 0.3 (0.2-1.0) mg/dL AST 40 H (15-37) U/L ALT 38 (14-59) U/L Alkaline Phosphatase 106 (46-116) U/L Total Protein 7.1 (6.4-8.2) g/dL Albumin 3.0 L (3.4-5.0) g/dL Globulin 4.1 g/dL Albumin/Globulin Ratio 0.7 Discharge Plan Discharge Chief Complaint: Seizure Clinical Impression: Partial seizure, Left arm weakness Patient Disposition: [facility] Time of Disposition Decision: 10:26 Discharge location: [facility] Condition: Good
[2024-07-10 13:26] LABS: Basophils Percent Auto 0.2 % (0.2-2.0); Eosinophils Absolute Auto 0.7 10^3/uL (0.0-0.7); Eosinophils Percent Auto 7.1 % (0.9-7.0); Hematocrit 35.6 % (36.0-48.0); Hemoglobin 11.5 g/dL (12.0-16.0); Immature Granulocytes Abs Auto 0.05 10^3/uL (0.00-0.03); Immature Granulocytes Pct Auto 0.5 % (0.0-0.5); Lymphocytes Absolute Auto 2.3 10^3/uL (1.2-3.8); Lymphocytes Percent Auto 24.8 % (20.5-60.0); Mean Corpuscular HGB Conc 32.3 g/dL (29.9-35.2); Mean Corpuscular Hemoglobin 28.3 pg (26.7-34.0); Mean Corpuscular Volume 87.7 fL (81.0-99.0); Mean Platelet Volume 10.1 fL (9.5-13.5); Monocytes Absolute Auto 0.5 10^3/uL (0.3-0.8); Neutrophils Absolute Auto 5.8 10^3/uL (1.4-6.5); Neutrophils Percent Auto 62.4 % (43.0-75.0); Platelet Count 215 10^3/uL (150-450); Red Blood Count 4.06 10^6/uL (4.20-5.40); Red Cell Distribution Width 13.8 % (11.0-15.0); White Blood Count 9.2 10^3/uL (4.0-11.0)
[2024-07-10 13:47] LABS: Alanine Aminotransferase 38 U/L (14-59); Albumin Globulin Ratio 0.7; Alkaline Phosphatase 106 U/L (46-116); Aspartate Amino Transferase 40 U/L (15-37); BUN Creatinine Ratio 12.1; Bilirubin Total 0.3 mg/dL (0.2-1.0); Calcium 8.5 mg/dL (8.5-10.1); Chloride 104 mmol/L (98-107); Estimated GFR (African America 52 (>=60 mL/min/1.73m^2); Estimated GFR (Non-African Ame 43 (>=60 mL/min/1.73m^2); Globulin 4.1 g/dL; Glucose 245 mg/dL (74-106); Sodium 137 mmol/L (136-145); Total Protein 7.1 g/dL (6.4-8.2)
[2024-07-10] MEDS: ACETAMINOPHEN 325 MG TABLET 650 MG PO (16:04)
== END 2024-07-10 17:10 | disposition short-term general hospital (02) ==
PROVIDERS: Emergency Provider Emergency Medicine; PCP Nurse Practitioner Family
DX: G40.89 Other seizures (principal); R53.1 Weakness; E11.22 Type 2 diabetes mellitus with diabetic chronic kidney disease; N18.2 Chronic kidney disease, stage 2 (mild); I12.9 Hypertensive chronic kidney disease with stage 1 through stage 4 chronic kidney disease, or unspecified chronic kidney disease
CPT/HCPCS: 36415; 70450; 80053; 82948; 85025; 93005; 99285